=== PATIENT | male | born 1955 | race Caucasian/White ===

== ENCOUNTER 2020-01-15 07:52 | Outpatient (REF) | payer MEDICARE, MEDICAID, SELFPAY ==
--- NOTE | 2020-01-15 | US_ITS ---
EXAMINATION: US ABDOMEN COMPLETE CLINICAL INFORMATION: Abnormal ultrasound of liver. COMPARISON: MR abdomen without and with contrast dated 06/05/2019. Ultrasound abdomen complete dated 05/15/2019 and 12/09/2009. CT abdomen and pelvis with contrast dated 04/22/2016. TECHNIQUE: Real-time imaging of the abdominal viscera. FINDINGS: PANCREAS: Normal. ABDOMINAL AORTA: The proximal, mid, and distal segments are normal in caliber. INFERIOR VENA CAVA: Visualized portions are normal. LIVER: There is a heterogeneous predominantly hypoechoic area seen in the lateral segment of the left lobe of the liver. This is more hypoechoic than is seen on previous ultrasound April 2019. This measures 2.6 x 3.4 x 3.3 cm. It is uncertain whether this corresponds to the previously identified lesion on abdominal ultrasound and MRI from earlier this year. This measured 2.3 x 2.6 x 2.4 cm on previous ultrasound and 2.6 x 2.3 cm on MRI. There are multiple liver cysts. Largest cyst measures 3.4 x 2.4 x 3.2 cm in the right lobe of the liver and is minimally complex with septation. Liver echotexture appears slightly increased. The liver is normal in size and shape. There is no intrahepatic biliary duct dilatation. GALLBLADDER: The gallbladder is contracted. There is gallbladder wall thickening measuring up to 0.5 cm. There are echogenic foci in the gallbladder questionable for polyps or small stones. COMMON BILE DUCT: Normal in caliber measuring 0.5 cm in diameter. RIGHT KIDNEY: There are right renal cysts. Largest cyst measures 2 cm in the midpole. There is a 1.8 x 1.4 x 1.7 cm complex cyst in the midpole with septations. No hydronephrosis or renal calculi. The kidney measures 14.0 cm in maximum dimension. LEFT KIDNEY: There are left renal cysts. Largest cyst measures 2.6 x 2 x 1.6 cm in the midpole. No hydronephrosis or renal calculi. The kidney measures 15.1 cm in maximum dimension. SPLEEN: Normal. The spleen measures 13.4 cm in maximum dimension. FREE FLUID: None. US/US abdomen complete IMPRESSION: Multiple liver and bilateral renal cysts. The previously identified solid liver lesion may not be identified. What is thought to represent this lesion appears more hypoechoic, less well-defined and increased in size compared to April and May 2019 exams. Followup liver MRI should be considered. Slightly contracted gallbladder with thickened gallbladder wall. Question gallbladder wall polyps/adenomyomatosis versus small stones.
== END 2020-01-15 07:53 | disposition home or self-care (01) ==
LOC: HO.US 07:52
PROVIDERS: Visit Provider Internal Medicine Gastroenterology
DX: R94.5 Abnormal results of liver function studies (principal)
CPT/HCPCS: 76700

== ENCOUNTER 2020-01-23 08:32 | Outpatient (REF) | payer MEDICARE, MEDICAID, SELFPAY ==
--- NOTE | 2020-01-23 08:34 | MR_ITS ---
EXAMINATION: MR ABDOMEN WITHOUT AND WITH CONTRAST CLINICAL INFORMATION: Abnormal ultrasound of the liver COMPARISON: Ultrasound 01/15/2020, MRI 06/05/2019 TECHNIQUE: MR abdomen was performed without and with use of 10 mL intravenous Gadavist gadolinium contrast. Postcontrast images are performed in multiphase dynamic sequences. Imaging was performed in 3 planes. FINDINGS: LUNG BASES: The visualized lung bases are unremarkable. LIVER, GALLBLADDER, AND BILIARY TREE: No hepatic steatosis seen. Again seen are numerous well-circumscribed T2 hyperintense, nonenhancing simple hepatic cysts. Some have a diffusely thin septations. These have been present across multiple prior study studies dating back to the CT to 04/10/2016. In addition, again seen is a well-circumscribed 2.6 x 2.9 cm lesion in segment 2 of the liver. This has mild bright T2 signal, series 4 image 16/37, is hypointense on precontrast T1-weighted images, with heterogeneous internal enhancement suggesting a solid lesion. I think the ultrasound abnormality that was being noted on the ultrasound 01/15/2020 is an adjacent multiloculated cyst, not this lesion. The gallbladder is unremarkable with no evidence of gallbladder wall thickening, or obvious pericholecystic inflammatory changes. PANCREAS: Unremarkable. SPLEEN: Normal. ADRENAL GLANDS: There is a 1.5 cm right adrenal nodule with loss of signal on opposed phase gradient echo sequences consistent with a benign lipid rich adrenal adenoma. Normal left adrenal gland. KIDNEYS AND URETERS: There is symmetric bilateral renal enhancement. Again seen are multiple well-circumscribed T2 hyperintense nonenhancing simple renal cysts. In addition, there are a few foci of bright T1 signal precontrast, for example a 5 mm focus in the left mid kidney in image 78/124 and a 6 mm focus in the upper pole the right kidney in image 72/124; these likely represent proteinaceous or hemorrhagic cysts. GASTROINTESTINAL TRACT: Stomach and small bowel are nondilated. No abnormal colonic wall thickening. No ascites. No intra-abdominal fluid collection. ABDOMINAL WALL: No significant hernia is appreciated. LYMPH NODES: No lymphadenopathy. VASCULAR: Normal caliber abdominal aorta. OSSEOUS STRUCTURES: Marrow signal normal. MR/MR abdomen wo/w con IMPRESSION: There is a 2.6 x 2.9 cm lesion in segment 2 of the liver with mild bright T2 signal and heterogeneous internal enhancement. This was seen on the prior MRI 06/05/2019 and measured 2.9 x 2.3 cm that time, not convincingly changed. There was abnormality in the anterior periphery of segment [address] 04/22/2016 although the current finding is significantly increased in size. The lesion remains indeterminate but the stability since 06/05/2019 is reassuring. Recommend continued attention on follow-up.
[2020-01-23 09:16] LABS: Blood Urea Nitrogen 17 mg/dL (9-16); Estimated Glomerular Filt Rate > 60
== END 2020-01-23 08:33 | disposition home or self-care (01) ==
LOC: HO.MRI 08:32
PROVIDERS: PCP Internal Medicine; Visit Provider Internal Medicine Gastroenterology
DX: R93.2 Abnormal findings on diagnostic imaging of liver and biliary tract (principal)
CPT/HCPCS: 74183; 82565; 84520; A9585

== ENCOUNTER → 2020-04-12 08:34 | Outpatient (BNVA) | payer MEDICARE, MEDICAID, SELFPAY | PROVIDERS: PCP Internal Medicine; Visit Provider Internal Medicine Cardiovascular Disease | DX: I47.1 Supraventricular tachycardia (principal); I10 Essential (primary) hypertension; I25.10 Atherosclerotic heart disease of native coronary artery without angina pectoris | CPT/HCPCS: 93005; 99212 ==

== ENCOUNTER → 2020-09-26 10:11 | Outpatient (BNVA) | payer MEDICARE, MEDICAID, SELFPAY | PROVIDERS: PCP Internal Medicine; Referring Provider Internal Medicine; Visit Provider Internal Medicine Cardiovascular Disease | DX: I25.10 Atherosclerotic heart disease of native coronary artery without angina pectoris (principal); I47.1 Supraventricular tachycardia | CPT/HCPCS: 99212 ==

== ENCOUNTER → 2021-01-31 10:19 | Outpatient (REF) | payer MEDICARE, MEDICAID, SELFPAY ==
--- NOTE | 2021-01-31 10:30 | CA_ITS ---
Transthoracic Echocardiogram Patient (Last, First, Middle): Shane Nichole D Gender: Male Date of : 1955 Age: 66 Procedure Date: 01/31/2021 Procedure Type: Transthoracic Echocardiogram Location: OP Height: 185.42 cm Weight: 111.13 kg BSA: 2.35 m2 Heart Rate: bpm BP: 134 / 80 mmHg Boxing Inspector: Referring MD: Kojo Fermin MD Symptoms: MURMUR R01.1 Study Quality: Fair ECG Rhythm: Sinus Conclusions: - The left ventricular systolic function is normal. The visually estimated ejection fraction is between 65-70%. - Evidence suggests grade II (moderate) diastolic dysfunction. - The basal inferior and mid inferior segments are hypokinetic. - The left atrium is moderately dilated. - There is moderate calcification of the aortic valve. There is mild aortic valve stenosis. - There is mild mitral annular calcification. Findings Left Ventricle Normal left ventricular cavity size. The left ventricular systolic function is normal. The visually estimated ejection fraction is between 65-70%. There is evidence of regional wall motion abnormalities. E/E prime ratio is >15, consistent with elevated filling pressures. Evidence suggests grade II (moderate) diastolic dysfunction. There is mild septal and mild basal asymmetric hypertrophy. Wall Motion Rest Echo Findings The basal inferior and mid inferior segments are hypokinetic. Right Ventricle Normal right ventricular cavity size and systolic function. Atria The left atrium is moderately dilated. The right atrium is normal in size. Aortic Valve There is moderate calcification of the aortic valve. There is mild aortic valve stenosis. The peak aortic velocity is 2.60 m/s with a calculated peak gradient of 27 mmHg. The mean gradient is 14 mmHg. The aortic valve area is 1.73 cm2. There is no aortic valve regurgitation. Mitral Valve There is mild mitral annular calcification. There is no mitral valve regurgitation. There is no mitral valve stenosis. Pulmonic Valve The pulmonic valve was not well visualized. Tricuspid Valve Normal tricuspid valve structure. There is trace tricuspid valve regurgitation. The pulmonary artery systolic pressure is normal. Great Vessels There is mild dilatation of the ascending aorta measuring 3.90 cm. Venous The inferior vena cava is dilated and collapses greater than 50% with inspiration. Pericardium/Pleural There is no evidence of pericardial effusion. Prior Study Comparison Changes noted compared to prior study dated: 01/12/2019. Increase in LA size; see comments on aortic valve. Measurements 2D Linear Measurements IVSd: 1.24 0.6-0.9/0.6-1.0 cm LVIDd: 5.19 3.9-5.3/4.2-5.9 cm LVIDd Index: 2.21 2.4-3.2/2.2-3.1 cm/m2 LVIDs: 3.30 2.0-3.6 cm LVPWd: 1.24 0.7-1.1 cm Ao Root: 3.50 2.1-3.5 cm LA Diam: 5.60 2.7-3.8/3.0-4.0 cm LAIDs Index: 2.38 1.5-2.3 cm/m2 LV Mass: 323.88 67-162/88-224 g LV Mass Index: 137.82 43-95/49-115 g/m2 LVOT Diam: 2.20 3.0+(-)1.3 cm 2D Systolic Function EF 4C: 70.00 >55% EF 2C: 72.90 >55% EF BiP: 72.60 >55% Mitral Valve MV VTI: 0.53 MV Pk Omkar: 1.35 MV Mn Omkar: 0.72 MV Pk Grad: 7.00 MV Mn Grad: 3.00 MV Pk E: 1.25 MV PK A: 0.80 MV Decel Time: 266.00 E/A: 1.60 E'Lateral: 8.05 E'Medial: 8.49 E/E' Med: 14.70 E/E' Lat: 15.50 PHT: 78.00 MVA PHT: 2.82 MVA Continuity: 2.02 Decel Hayes: 4.69 Aortic Valve AoV Pk Omkar: 2.60 AoV Mn Omkar: 1.73 AoV VTI: 0.62 AoV Pk Grad: 27.00 Aov Mn Grad: 14.00 YAMEL Cont.VTI: 1.73 LVOT LVOT Pk Omkar: 1.19 LVOT Mn Omkar: 0.80 LVOT VTI: 0.28 LVOT Pk Grad: 6.00 LVOT Mn Grad: 3.00 LVOT Diam: 2.20 LVOT Area: 3.80 Diastolic Function MV Pk E: 1.25 MV Pk A: 0.80 E/A: 1.60 E'Medial: 8.49 E/E' Med: 14.70 E' Laterial: 8.05 E/E' Lat: 15.50 Right Ventricle TAPSE (mm): 41.00 Tricuspid Valve TR Pk Omkar: 1.59 TR Pk Grad: 10.00 RA Press: 8.00 Great Vessels Aorta Ao Root-2D: 3.50 2.0-3.7 cm Ao Asc: 3.90 2.1-3.4 cm Pulmonary Valve PV Pk Omkar: 1.09 Peak PV Grad: 5.00 Updated in Other Vendor System with Status of Final Jonny Chin MD electronically signed on 02/01/2021 2:12:43 PM with status of Final
== END ==
LOC: HO.CARD 10:19
PROVIDERS: Visit Provider Internal Medicine
DX: R01.1 Cardiac murmur, unspecified (principal)
CPT/HCPCS: 93306

== ENCOUNTER 2021-05-15 06:03 | Outpatient (REF) | payer MEDICARE, MEDICAID, SELFPAY ==
[2021-05-15 06:21] LABS: MANUAL DIFF FLAG NO
[2021-05-15 06:57] LABS: Basophils Absolute Auto 0.1 X10*3/uL (0.0-0.2); Basophils Percent Auto 1.1 % (0-2); Eosinophils Absolute Auto 0.2 X10*3/uL (0.0-0.4); Eosinophils Percent Auto 2.9 % (0-4); Hematocrit 38.8 % (42.0-52.0); Hemoglobin 13.3 g/dl (14.0-18.0); Imm Gran Abs Auto 0.03 X10*3/uL (0.00-0.03); Imm Gran Pct Auto 0.5 % (0.0-0.4); Lymphocytes Absolute Auto 1.7 X10*3/uL (1.2-4.9); Mean Corpuscular HGB Conc 34.3 g/dl (31.0-36.0); Mean Corpuscular Hemoglobin 31.5 pg (27.0-33.0); Mean Corpuscular Volume 91.9 fL (80.0-98.0); Mean Platelet Volume 9.5 fL (9.4-12.4); Monocytes Absolute Auto 0.7 X10*3/uL (0.1-1.2); Monocytes Percent Auto 10.8 % (2-11); Neutrophils Absolute Auto 3.5 x10*3/uL (2.0-8.3); Neutrophils Percent Auto 56.7 % (45-73); Platelet Count 220 X10*3/uL (160-400); Red Blood Count 4.22 X10*6/uL (4.60-5.80); Red Cell Distribution Width 14.1 % (11.0-16.0); White Blood Count 6.2 X10*3/uL (4.8-10.8)
[2021-05-15 07:17] LABS: Estimated Average Glucose 108 mg/dL; Hemoglobin A1C 121.5818 umol/L; Hemoglobin A1c % 5.4 %
[2021-05-15 07:28] LABS: Alanine Aminotransferase 23 U/L (0-40); Albumin Level 4.3 g/dL (3.5-5.0); Alkaline Phosphatase 83 U/L (39-117); Anion Gap 14 (12-20); Aspartate Amino Transferase 26 U/L (5-37); Bilirubin Total 0.7 mg/dL (0.0-1.0); Blood Urea Nitrogen 10 mg/dL (9-16); Calcium 9.7 mg/dL (8.4-10.2); Carbon Dioxide 22 mmol/L (22-29); Chloride 102 mmol/L (96-108); Estimated Glomerular Filt Rate > 60; Glucose Random 131 mg/dL (60-115); Potassium 4.2 mmol/L (3.3-5.1); Sodium 134 mmol/L (135-145); Total Protein 7.3 g/dL (6.5-8.0)
[2021-05-15 09:05] LABS: Folate 6.8 ng/mL (> or = 4.0); Vitamin B12 372 pg/mL (200-900)
[2021-05-19 09:21] LABS: Methylmalonic Acid 262 nmol/L (87-318)
== END 2021-05-15 06:04 | disposition home or self-care (01) ==
LOC: HO.LAB 06:03
PROVIDERS: PCP Internal Medicine; Visit Provider Internal Medicine
DX: I25.10 Atherosclerotic heart disease of native coronary artery without angina pectoris (principal); I10 Essential (primary) hypertension; R73.01 Impaired fasting glucose; R35.1 Nocturia; E53.8 Deficiency of other specified B group vitamins
CPT/HCPCS: 36415; 80053; 82607; 82746; 83036; 83921; 85025

== ENCOUNTER → 2021-10-16 12:20 | Outpatient (BNVA) | payer MEDICARE, MEDICAID, SELFPAY | PROVIDERS: PCP Internal Medicine; Referring Provider Internal Medicine; Visit Provider Internal Medicine Cardiovascular Disease | DX: I25.10 Atherosclerotic heart disease of native coronary artery without angina pectoris (principal); I47.1 Supraventricular tachycardia | CPT/HCPCS: 93005; 99212 ==

== ENCOUNTER 2021-10-30 07:10 | Outpatient (REF) | payer MEDICARE, MEDICAID, SELFPAY ==
[2021-10-30 07:35] LABS: MANUAL DIFF FLAG NO
[2021-10-30 07:52] LABS: Basophils Absolute Auto 0.1 X10*3/uL (0.0-0.2); Basophils Percent Auto 1.4 % (0-2); Eosinophils Absolute Auto 0.2 X10*3/uL (0.0-0.4); Eosinophils Percent Auto 2.3 % (0-4); Hemoglobin 13.3 g/dl (14.0-18.0); Imm Gran Abs Auto 0.06 X10*3/uL (0.00-0.03); Imm Gran Pct Auto 0.8 % (0.0-0.4); Lymphocytes Absolute Auto 1.8 X10*3/uL (1.2-4.9); Lymphocytes Percent Auto 23.6 % (20-40); Mean Corpuscular HGB Conc 34.1 g/dl (31.0-36.0); Mean Corpuscular Hemoglobin 31.1 pg (27.0-33.0); Mean Corpuscular Volume 91.3 fL (80.0-98.0); Mean Platelet Volume 8.9 fL (9.4-12.4); Monocytes Absolute Auto 1.1 X10*3/uL (0.1-1.2); Monocytes Percent Auto 14.5 % (2-11); Neutrophils Absolute Auto 4.3 x10*3/uL (2.0-8.3); Neutrophils Percent Auto 57.4 % (45-73); Platelet Count 185 X10*3/uL (160-400); Red Blood Count 4.27 X10*6/uL (4.60-5.80); Red Cell Distribution Width 15.3 % (11.0-16.0); White Blood Count 7.4 X10*3/uL (4.8-10.8)
[2021-10-30 08:09] LABS: Estimated Average Glucose 103 mg/dL; Hemoglobin A1c % 5.2 %
[2021-10-30 08:13] LABS: Alanine Aminotransferase 30 U/L (0-40); Albumin Level 4.4 g/dL (3.5-5.0); Alkaline Phosphatase 99 U/L (39-117); Anion Gap 18 (12-20); Aspartate Amino Transferase 32 U/L (5-37); Bilirubin Total 0.6 mg/dL (0.0-1.0); Blood Urea Nitrogen 25 mg/dL (9-16); Calcium 9.1 mg/dL (8.4-10.2); Carbon Dioxide 19 mmol/L (22-29); Chloride 103 mmol/L (96-108); Cholesterol 170 mg/dL; Estimated Glomerular Filt Rate 42; Glucose Random 133 mg/dL (60-115); HDL Cholesterol 58 mg/dL; LDL Cholesterol Calculated 65 mg/dl; Potassium 4.2 mmol/L (3.3-5.1); Sodium 136 mmol/L (135-145); Total Protein 7.5 g/dL (6.5-8.0); Triglycerides 237 mg/dL
[2021-10-30 08:33] LABS: Thyroid Stimulating Hormone 2.07 uIU/mL (0.32-4.0)
== END 2021-10-30 07:11 | disposition home or self-care (01) ==
LOC: HO.LAB 07:10
PROVIDERS: PCP Internal Medicine; Visit Provider Internal Medicine
DX: I25.10 Atherosclerotic heart disease of native coronary artery without angina pectoris (principal); R73.01 Impaired fasting glucose; E78.2 Mixed hyperlipidemia; R53.81 Other malaise; R53.83 Other fatigue
CPT/HCPCS: 36415; 80053; 80061; 83036; 84443; 85025

== ENCOUNTER 2021-12-10 06:25 | Outpatient (REF) | payer MEDICARE, MEDICAID, SELFPAY ==
[2021-12-10 07:57] LABS: Anion Gap 18 (12-20); Blood Urea Nitrogen 21 mg/dL (9-16); Calcium 9.6 mg/dL (8.4-10.2); Carbon Dioxide 21 mmol/L (22-29); Chloride 105 mmol/L (96-108); Estimated Glomerular Filt Rate 50; Glucose Random 112 mg/dL (60-115); Potassium 4.1 mmol/L (3.3-5.1); Sodium 140 mmol/L (135-145)
[2021-12-10 08:26] LABS: Appearance Urine Clear; Color Urine Yellow; Glucose Urine UA Negative (Negative); Leukocyte Esterase Urine Negative (Negative); Nitrite Urine Negative (Negative); PH 5.5 (5.0-9.0); Specific Gravity - Urine 1.015 (1.005-1.025); UMIC TRIGGER UA YES; Urine Blood Negative (Negative); Urine Ketones Negative (Negative); Urine Protein 30 (1+) mg/dL (Neg-Trace)
[2021-12-10 08:31] LABS: Bacteria Urine None Seen (None Seen); Hyaline Casts Urine 0-2 /LPF (0-2); RBC Urine 0-2 /HPF (0-2); Squamous Epithelial Cell Urine 0-2 /HPF (0-2); WBC Urine 0-5 /HPF (0-5)
== END 2021-12-10 06:26 | disposition home or self-care (01) ==
LOC: HO.LAB 06:25
PROVIDERS: PCP Internal Medicine; Visit Provider Internal Medicine
DX: R73.01 Impaired fasting glucose (principal); I12.9 Hypertensive chronic kidney disease with stage 1 through stage 4 chronic kidney disease, or unspecified chronic kidney disease; N18.32 Chronic kidney disease, stage 3b
CPT/HCPCS: 36415; 80048; 81001; 81003

== ENCOUNTER 2022-04-03 07:22 | Outpatient (REF) | payer MEDICARE, MEDICAID, SELFPAY ==
[2022-04-03 08:36] LABS: Hematocrit 36.4 % (42.0-52.0); Hemoglobin 12.6 g/dl (14.0-18.0); Mean Corpuscular HGB Conc 34.6 g/dl (31.0-36.0); Mean Corpuscular Hemoglobin 33.5 pg (27.0-33.0); Mean Corpuscular Volume 96.8 fL (80.0-98.0); Mean Platelet Volume 9.6 fL (9.4-12.4); Platelet Count 173 X10*3/uL (160-400); Red Blood Count 3.76 X10*6/uL (4.60-5.80); Red Cell Distribution Width 12.9 % (11.0-16.0); White Blood Count 7.8 X10*3/uL (4.8-10.8)
[2022-04-03 08:55] LABS: Alanine Aminotransferase 50 U/L (0-40); Albumin Level 4.2 g/dL (3.5-5.0); Alkaline Phosphatase 106 U/L (39-117); Aspartate Amino Transferase 38 U/L (5-37); Bilirubin Direct 0.2 mg/dL (0.0-0.5); Bilirubin Total 0.6 mg/dL (0.0-1.0); Blood Urea Nitrogen 20 mg/dL (9-16); Estimated Glomerular Filt Rate > 60; Total Protein 7.1 g/dL (6.5-8.0)
[2022-04-06 14:18] LABS: Alpha Fetoprotein 6.8 ng/mL (<6.1)
== END 2022-04-03 07:23 | disposition home or self-care (01) ==
LOC: HO.LAB 07:22
PROVIDERS: PCP Internal Medicine; Visit Provider Internal Medicine Gastroenterology
DX: K74.69 Other cirrhosis of liver (principal)
CPT/HCPCS: 36415; 80076; 82105; 82565; 84520; 85027; 85610

== ENCOUNTER 2022-04-06 07:49 | Outpatient (REF) | payer MEDICARE, MEDICAID, SELFPAY ==
--- NOTE | ~2022-04-06 | MR_ITS ---
EXAMINATION: MR ABDOMEN WITHOUT AND WITH CONTRAST CLINICAL INFORMATION: Follow-up liver lesion COMPARISON: Outside MRI 01/23/2020. MRI abdomen 06/05/2019 TECHNIQUE: MR abdomen was performed without and with use of 10 mL intravenous Gadavist gadolinium contrast. Postcontrast images are performed in multiphase dynamic sequences. Imaging was performed in 3 planes. FINDINGS: LUNG BASES: The visualized lung bases are unremarkable. LIVER, GALLBLADDER, AND BILIARY TREE: The liver is normal in size, smooth in contour, and normal in signal. Numerous well-circumscribed T2 hyperintense simple hepatic cysts are present. In addition, along the anterior margin of the left lobe of liver, segment 3 there is a well-circumscribed 2.7 x 2.0 cm lesion with intermediate bright T2 signal and hypointense T1 signal precontrast. This may be subtly hyperenhancing relative to adjacent liver on arterial phase images and becomes isoenhancing on later sequences. It is not convincingly changed in size from the prior MRI 06/05/2019. The gallbladder is unremarkable with no evidence of gallbladder wall thickening, or obvious pericholecystic inflammatory changes. PANCREAS: There are a few tiny cysts or ectatic sidebranches of the pancreas measuring 2-3 mm, for example coronal series 3 image 19/37 in the body of the pancreas and on image 18/37 and the tail of the pancreas. These do not definitely communicate with the pancreatic duct. SPLEEN: Normal. ADRENAL GLANDS: Normal. KIDNEYS AND URETERS: Numerous well-circumscribed homogeneous hyperintense T2, nonenhancing simple cysts are present. In addition, there are several small homogeneous T1 bright proteinaceous or hemorrhagic cysts, for example in the left kidney on series 8 images 71, 82, and 89. However, there is one heterogeneous cyst measuring 1.8 cm in the lateral cortex of the right mid kidney image 87/120. This has nodular bright T1 signal precontrast, 3 to 4 mm in diameter, with bright T2 signal and no enhancement elsewhere. Given the heterogeneity this would be considered a Bosniak 2F cyst. GASTROINTESTINAL TRACT: No bowel obstruction. No ascites or fluid collection. ABDOMINAL WALL: No significant hernia is appreciated. LYMPH NODES: No lymphadenopathy. VASCULAR: Unremarkable. OSSEOUS STRUCTURES: Degenerative changes. No acute or suspicious focal abnormality.. MR/MR abdomen wo/w con IMPRESSION: In addition to multiple hepatic cysts, the 2.7 cm index lesion along the anterior cortex of the left lobe of the liver is not convincingly changed from prior MRI in 2020. The lack of interval change is reassuring of an underlying benign etiology. The MRI and signal characteristics remain most consistent with focal nodular hyperplasia (there was retained Eovist contrast on 20 minute delayed images of the MRI 06/05/2019 consistent with a lesion of hepatocyte origin). In addition to simple and proteinaceous/hemorrhagic Bosniak 1 and 2 renal cysts, there is a 1.8 cm Bosniak 2F cyst in the right mid kidney. The heterogeneity seen on the current exam was not seen on the prior study in 2020. The large majority of Bosniak IIF masses are benign. When malignant, nearly all are indolent. Generally, Bosniak IIF masses are followed by imaging at 6 months and 12 months, then annually for a total of 5 years to assess for morphologic change.
== END 2022-04-06 07:50 | disposition home or self-care (01) ==
LOC: HO.MRI 07:49
PROVIDERS: PCP Internal Medicine; Visit Provider Internal Medicine Gastroenterology
DX: R93.2 Abnormal findings on diagnostic imaging of liver and biliary tract (principal)
CPT/HCPCS: 74183; A9585

== ENCOUNTER 2022-04-10 08:18 | Outpatient (REF) | payer MEDICARE, MEDICAID, SELFPAY ==
[2022-04-10 08:36] LABS: MANUAL DIFF FLAG NO
[2022-04-10 08:50] LABS: Basophils Absolute Auto 0.1 X10*3/uL (0.0-0.2); Basophils Percent Auto 1.3 % (0-2); Eosinophils Absolute Auto 0.1 X10*3/uL (0.0-0.4); Eosinophils Percent Auto 2.1 % (0-4); Hematocrit 36.8 % (42.0-52.0); Hemoglobin 12.9 g/dl (14.0-18.0); Imm Gran Abs Auto 0.08 X10*3/uL (0.00-0.03); Imm Gran Pct Auto 1.2 % (0.0-0.4); Lymphocytes Percent Auto 29.4 % (20-40); Mean Corpuscular HGB Conc 35.1 g/dl (31.0-36.0); Mean Corpuscular Hemoglobin 33.1 pg (27.0-33.0); Mean Corpuscular Volume 94.4 fL (80.0-98.0); Monocytes Absolute Auto 0.8 X10*3/uL (0.1-1.2); Monocytes Percent Auto 12.3 % (2-11); Neutrophils Absolute Auto 3.6 x10*3/uL (2.0-8.3); Neutrophils Percent Auto 53.7 % (45-73); Platelet Count 202 X10*3/uL (160-400); Red Cell Distribution Width 12.7 % (11.0-16.0); White Blood Count 6.7 X10*3/uL (4.8-10.8)
[2022-04-10 08:58] LABS: Estimated Average Glucose 91 mg/dL; Hemoglobin A1c % 4.8 %
[2022-04-10 09:26] LABS: Appearance Urine Clear; Color Urine Yellow; Glucose Urine UA Negative (Negative); Leukocyte Esterase Urine Negative (Negative); Nitrite Urine Negative (Negative); PH 6.5 (5.0-9.0); UMIC TRIGGER UA YES; Urine Blood Negative (Negative); Urine Ketones Negative (Negative); Urine Protein 30 (1+) mg/dL (Neg-Trace)
[2022-04-10 09:32] LABS: Bacteria Urine None Seen (None Seen); Hyaline Casts Urine 0-2 /LPF (0-2); RBC Urine 0-2 /HPF (0-2); Squamous Epithelial Cell Urine 0-2 /HPF (0-2); WBC Urine 0-5 /HPF (0-5)
[2022-04-10 09:41] LABS: Alanine Aminotransferase 32 U/L (0-40); Albumin Level 4.3 g/dL (3.5-5.0); Alkaline Phosphatase 90 U/L (39-117); Anion Gap 14 (12-20); Aspartate Amino Transferase 35 U/L (5-37); Bilirubin Total 0.5 mg/dL (0.0-1.0); Blood Urea Nitrogen 18 mg/dL (9-16); Calcium 9.4 mg/dL (8.4-10.2); Carbon Dioxide 22 mmol/L (22-29); Chloride 104 mmol/L (96-108); Estimated Glomerular Filt Rate 57; Glucose Random 116 mg/dL (60-115); Potassium 4.3 mmol/L (3.3-5.1); Sodium 136 mmol/L (135-145); Total Protein 7.1 g/dL (6.5-8.0)
[2022-04-10 09:57] LABS: Vitamin D 25-OH Total 6.9 ng/mL (>30)
== END 2022-04-10 08:19 | disposition home or self-care (01) ==
LOC: HO.LAB 08:18
PROVIDERS: PCP Internal Medicine; Visit Provider Internal Medicine
DX: M54.41 Lumbago with sciatica, right side (principal); G89.29 Other chronic pain; R35.0 Frequency of micturition; I10 Essential (primary) hypertension; R35.1 Nocturia; E55.9 Vitamin D deficiency, unspecified
CPT/HCPCS: 36415; 80053; 81001; 82306; 83036; 85025; 87086

== ENCOUNTER 2022-04-15 11:52 | Day surgery (SDC) | payer MEDICARE, MEDICAID, SELFPAY ==
--- NOTE | 2022-04-14 10:16 | HO.ANESPROP2 ---
Documented by User: Viry Soler NP 04/14/22 10:50 HPI - Anesthesia Eval Consult details Narrative: 67yo M for Upper Endoscopy and Colonoscopy Stable at 09/2021 routine cardiology visit s/p RUL-ectomy 05/2021 for benign nodule Tramadol for significant back pain PMFSH Active Problems Active Problems: All Active Problems (Updated 04/12/20 @ 09:05 by Danilo Em MD) CAD (coronary artery disease) (Acute) SVT (supraventricular tachycardia) (Acute) HTN (hypertension) (Acute) Hyperlipidemia (Acute) Past Medical History Medical History (Updated 04/14/22 @ 10:42 by Viry Soler NP) Anemia Asthma CAD (coronary artery disease) COPD (chronic obstructive pulmonary disease) Hepatitis C HTN (hypertension) Hyperlipidemia XAVIER (obstructive sleep apnea) Renal stones SVT (supraventricular tachycardia) Family History Family History Father Cancer Mother CVD (cardiovascular disease) Surgical History Surgical History (Updated 04/14/22 @ 10:48 by Viry Soler NP) History of back surgery Hx of cardiac cath Hx of thyroidectomy S/P lobectomy of lung (~05/2021) Stented coronary artery Social History Social History Advance Directives: No Advance Directives Information Provided: Yes Meds Allergies Allergy/AdvReac Type Severity Reaction Status Date / Time No Known Allergies Allergy Unverified 12/07/19 15:01 [No Known Allergies*] Home Medications Medication Instructions Recorded Confirmed Last Taken Type aspirin 81 mg tablet,delayed 81 mg PO DAILY 04/12/20 10/16/21 Unknown History release (Adult Low Dose Aspirin) famotidine 40 mg tablet 40 mg PO DAILY 04/12/20 10/16/21 Unknown History gabapentin 600 mg tablet 600 mg PO TID 04/12/20 10/16/21 Unknown History lisinopril 40 mg tablet 40 mg PO DAILY 04/12/20 10/16/21 Unknown History metoprolol tartrate 50 mg tablet 50 mg PO BID 04/12/20 10/16/21 Unknown History umeclidinium 62.5 mcg/actuation 1 inh PO DAILY 04/12/20 10/16/21 Unknown History blister powder for inhalation cyclobenzaprine 10 mg tablet 10 mg PO BEDTIME PRN 09/26/20 10/16/21 Unknown History fluticasone fur. 200 mcg-umeclid 1 ea inhalation DAILY 09/26/20 10/16/21 Unknown History 62.5 mcg-vilant 25 mcg inhalat.powder pramipexole 0.25 mg tablet 0.25 mg PO 09/26/20 10/16/21 Unknown History Exam Exam Date and Time: April 14, 2022 1016 Pertinent Lab Results Pertinent Lab Results: Laboratory Tests 04/10/22 04/10/22 08:35 08:35 WBC 6.7 Hgb 12.9 L Hct 36.8 L Plt Count 202 Sodium 136 Potassium 4.3 Chloride 104 Carbon Dioxide 22 BUN 18 H Creatinine 1.26 Narrative Narrative: EKG 09/2021 normal sinus rhythm first-degree AV block with PAC otherwise normal EKG ECHO01/2021 Conclusions: - The left ventricular systolic function is normal.? The visually estimated ejection fraction is between 65-70%. ? - Evidence suggests grade II (moderate) diastolic dysfunction. ? - The basal inferior and mid inferior segments are hypokinetic.? - The left atrium is moderately dilated. ? - There is moderate calcification of the aortic valve.? There is mild aortic valve stenosis.? - There is mild mitral annular calcification.? ? Assessment and Plan Assessment Anesthesia Assessment: Chart Reviewed Documented by User: Leonides Petersen MD 04/15/22 12:29 [facility] Past Medical History Medical History (Updated 04/14/22 @ 10:42 by Viry Soler NP) Anemia Asthma CAD (coronary artery disease) COPD (chronic obstructive pulmonary disease) Hepatitis C HTN (hypertension) Hyperlipidemia XAVIER (obstructive sleep apnea) Renal stones SVT (supraventricular tachycardia) Family History Family History Father Cancer Mother CVD (cardiovascular disease) Family history of problems with anesthesia: No Surgical History Surgical History (Updated 04/14/22 @ 10:48 by Viry Soler NP) History of back surgery Hx of cardiac cath Hx of thyroidectomy S/P lobectomy of lung (~05/2021) Stented coronary artery History of Problems with Anesthesia: No Social History Social History Advance Directives: No Advance Directives Information Provided: Yes Meds Allergies Allergy/AdvReac Type Severity Reaction Status Date / Time No Known Allergies Allergy Unverified 12/07/19 15:01 [No Known Allergies*] Home Medications Medication Instructions Recorded Confirmed Last Taken Type aspirin 81 mg tablet,delayed 81 mg PO DAILY 04/12/20 10/16/21 Unknown History release (Adult Low Dose Aspirin) famotidine 40 mg tablet 40 mg PO DAILY 04/12/20 10/16/21 Unknown History gabapentin 600 mg tablet 600 mg PO TID 04/12/20 10/16/21 Unknown History lisinopril 40 mg tablet 40 mg PO DAILY 04/12/20 10/16/21 Unknown History metoprolol tartrate 50 mg tablet 50 mg PO BID 04/12/20 10/16/21 Unknown History umeclidinium 62.5 mcg/actuation 1 inh PO DAILY 04/12/20 10/16/21 Unknown History blister powder for inhalation cyclobenzaprine 10 mg tablet 10 mg PO BEDTIME PRN 09/26/20 10/16/21 Unknown History fluticasone fur. 200 mcg-umeclid 1 ea inhalation DAILY 09/26/20 10/16/21 Unknown History 62.5 mcg-vilant 25 mcg inhalat.powder pramipexole 0.25 mg tablet 0.25 mg PO 09/26/20 10/16/21 Unknown History Exam Airway Mallampati Class: II TM Dist: >3cm Denture: Lower Loose/Missing/Broken Teeth: No Heart: rrr Lungs: cta Assessment and Plan Final Anesthetic Review Family History of Problems with Anesthesia: No History of Problems with Anesthesia: No NPO: Yes ASA Class: III Final Preanesthetic Review: No Changes in Pt Med Stat, Meds/Allgs Chart Reviewed, Consent Obtained/Reviewed and Anes Risks/Benef Reviewed Patient Risk: Intermediate Procedure Risk: Intermediate Anesthetic Plan Anesthetic Plan: MAC: Disposition: Standard PACU
[2022-04-15 12:27] VITALS: BMI 30.9
--- NOTE | 2022-04-15 13:26 | MHC.SHP ---
Pre-Procedural Eval Section A Date of Service: 04/15/22 The patient is an INPATIENT: No Changes since office visit: No Cold of Flu in the past 2 weeks, No New Medical Problems, No Changes in Medication and No Patient answered all questions The History & Physical has been completed within 30 days and I have reviewed it.: Yes Section B Chief Complaint: Other cirrhosis of liver,screening Allergies: Allergies Allergy/AdvReac Type Severity Reaction Status Date / Time No Known Allergies Allergy Unverified 12/07/19 15:01 [No Known Allergies*] Plan I have reviewed the history and physical and performed a pertinent physical examination on my patient. No changes have occurred unless specified. Time Spent With Patient Time: Total time managing care of this patient today ____ minutes.
--- NOTE | 2022-04-15 14:39 | P.BOP_ITS ---
Brief Operative Note Date of Service: 04/15/22 Pre-op diagnosis: cirrhosis screening Post-op diagnosis: same Surgeon: Power Barrera Anesthesia: MAC Was an Special Event Assistant used for this Procedure?: No Estimated blood loss (mL): 5 Pathology: other Condition: stable Disposition: PACU
[2022-04-15 14:47] VITALS: BP 123/70; PULSE 64; RESP 18; TEMP 36.8; O2SAT 96
[2022-04-15 15:12] VITALS: BP 135/83; PULSE 60; RESP 16; TEMP 36.8; O2SAT 96
--- NOTE | 2022-04-16 02:22 | OP_ITS ---
SURGEON: Power Barrera MD INDICATIONS: 1. Cirrhosis. 2. Colon cancer screening and prior history of adenomatous colon polyps. PREOPERATIVE DIAGNOSIS: POSTOPERATIVE DIAGNOSIS: PROCEDURE PERFORMED: Upper endoscopy with biopsy, colonoscopy to the terminal ileum with biopsy and snare polypectomy. ESTIMATED BLOOD LOSS: COMPLICATIONS: ANESTHESIA: Medications: Monitored anesthesia care. ASSISTANTS: SPECIMENS: DESCRIPTION OF PROCEDURE: The procedure was performed on 04/15/2022. A history and physical was performed. The risks and benefits of the procedure were explained to the patient. Informed consent was obtained. The patient was placed in the left lateral decubitus position. The Olympus video gastroscope was introduced into the esophagus, stomach, and duodenum. Examination was performed and the scope was removed. He was repositioned for colonoscopy. A digital rectal exam was performed and it was found to be normal. The Olympus pediatric video colonoscope was introduced into the rectum and advanced to the cecum without difficulty. The cecum was identified by translumination, palpation, and identification of the ileocecal valve. Examination was performed. The scope was removed. He tolerated both procedures well, and returned to the recovery area in stable condition. FINDINGS: UPPER ENDOSCOPY: Esophagus: The esophagus was normal. No varices were seen. There was 1 cm area suspicious for Cedeno's esophagus. Biopsies were obtained from the EG junction and at 34 cm were two small tongues of salmon-colored tissue extended up from the EG junction. There were no raised lesions or ulcerated areas. Stomach: The stomach showed antral erythema, consistent with gastritis. Biopsies were obtained from the antrum. No portal hypertensive gastropathy was identified. No gastric varices were identified. Duodenum: The bulb and second portion were normal. COLONOSCOPY: The terminal ileum was normal. The visualized colonic mucosa was normal without any evidence of colitis. Multiple colonic polyps were identified and removed using snare and cautery, all were less than 10 mm. These were located at 80 cm, 75 cm, 60 cm x4, 50 cm x3, two were removed and one was cauterized 40 cm and one polyp at 35 cm, which was snared. It measured approximately 8 mm, but it could not be recovered due to technical reasons. There was mild sigmoid diverticulosis. There was some liquid stool in the sigmoid, which limited sensitivity examination and recovery of the polyp at 35 cm. This was washed and suctioned. Retroflexed examination showed some internal hemorrhoids. IMPRESSION: 1. Cirrhosis. 2. Rule out Cedeno's esophagus. 3. Colon polyps. 4. Diverticulosis. RECOMMENDATIONS: Follow up with the biopsy results. MD YOUNG Prasad/SHANTELL / [id number] Addendum: 04/16/22 There was some tissue recovered in the suction trap for the polyp at 35 cm and this was sent for pathological examination. BLANCA
== END 2022-04-15 15:40 | disposition home or self-care (01) ==
PROVIDERS: PCP Internal Medicine; Visit Provider Internal Medicine Gastroenterology
PROC: (CPT 45385; principal; 2022-04-15 13:40)
DX: Z12.11 Encounter for screening for malignant neoplasm of colon (principal); Z86.010 Personal history of colon polyps; K74.69 Other cirrhosis of liver; D12.4 Benign neoplasm of descending colon; D12.5 Benign neoplasm of sigmoid colon; K57.30 Diverticulosis of large intestine without perforation or abscess without bleeding; K64.8 Other hemorrhoids; B19.20 Unspecified viral hepatitis C without hepatic coma; I10 Essential (primary) hypertension; D64.9 Anemia, unspecified; E78.00 Pure hypercholesterolemia, unspecified; I25.10 Atherosclerotic heart disease of native coronary artery without angina pectoris; Z98.61 Coronary angioplasty status; J44.9 Chronic obstructive pulmonary disease, unspecified; G47.33 Obstructive sleep apnea (adult) (pediatric); Z79.899 Other long term (current) drug therapy; Z99.89 Dependence on other enabling machines and devices; Z87.442 Personal history of urinary calculi; Z87.891 Personal history of nicotine dependence
CPT/HCPCS: 45385; 45380; 43239; 88305; 88341; 88342; J2250; J2370; J3010

== ENCOUNTER 2022-10-22 12:19 | Outpatient (AMB) | payer MEDICARE, MEDICAID, SELFPAY ==
[2022-10-22 12:33] VITALS: BP 124/78; PULSE 65; BMI 31.1
--- NOTE | 2022-10-22 12:33 | A.OFFVIS_ITS ---
Intake Vital Signs 10/22/22 12:33 Height 6 ft 1 in Weight 235 lb 14.314 oz BMI 31.1 BP 124/78 Blood Pressure Location Lt brachial Position Sitting Pulse 65 Intake Visit Reasons: 1 year follow up Intake Note: 1 year follow-up with ekg Vibrator Operator Required: No Allergies No Known Allergies [No Known Allergies*] Allergy (Unverified 12/07/19 15:01) Medication List - Last Reconciled 10/22/22 by Danilo Em MD amlodipine 10 mg PO DAILY atorvastatin 40 mg PO BEDTIME cyclobenzaprine 10 mg PO BEDTIME PRN ezetimibe (Zetia) 10 mg PO DAILY famotidine 40 mg PO DAILY ksebgylmdim-hdujdytsq-jkztacqq 200-62.5-25 mcg 1 ea inhalation DAILY gabapentin 600 mg PO TID lisinopril 40 mg PO DAILY metoprolol tartrate 50 mg PO BID omega-3 acid ethyl esters 2 caps PO BID pramipexole 0.25 mg PO ranolazine ER (Ranexa) 500 mg PO BID 90 days umeclidinium 62.5 mcg/actuation 1 inh PO DAILY HPI HPI Comments History of Present Illness Details Shane comes for follow-up. Patient has had no worsening cardiac symptoms. Denies any prolonged palpitations. No exertional chest pain. Cont inues to exertional shortness of breath. Taking all his medications. No recent lipid panel. Denies any heart failure symptoms. Denies any lightheadedness, syncope. Complains of bruising. [facility] Medical History Anemia Asthma CAD (coronary artery disease) COPD (chronic obstructive pulmonary disease) Hepatitis C HTN (hypertension) Hyperlipidemia XAVIER (obstructive sleep apnea) Renal stones SVT (supraventricular tachycardia) Surgical History History of back surgery Hx of cardiac cath Hx of thyroidectomy S/P lobectomy of lung (~05/2021) Stented coronary artery Family History Father Cancer Mother CVD (cardiovascular disease) Review of Systems Const Denies chills, Denies fatigue, Denies fever(s), Denies frequent falls, Denies weakness, Denies weight gain and Denies weight loss ENT Denies dizziness Card Denies chest pain, Denies leg edema, Denies lightheadedness, Denies palpitations, Denies dyspnea, Denies dyspnea on exertion, Denies orthopnea and Denies other (loss of consciousness) Resp Denies cough, Denies dyspnea and Denies dyspnea on exertion GI Denies hematochezia and Denies change in stool character Musc Denies abnormal gait, Denies muscle weakness, Denies numbness, Denies radiating pain into limb and Denies tingling Neuro Denies abnormal gait, Denies dizziness, Denies frequent falls, Denies numbness, Denies tingling and Denies weakness Endo Denies fatigue and Denies palpitations Physical Exam Vital Signs: Last Vital Signs Pulse 65 10/22/22 12:33 BP 124/78 10/22/22 12:33 BMI result Body Mass Index 31.1 Const General: cooperative, comfortable, no acute distress, alert and awake Nutritional Appearance: overweight Orientation/consciousness: patient oriented x3 Limitations: no limitations Neck Neck: Yes trachea midline, Yes supple and Yes no JVD Carotids: no bruits Resp Effort & Inspection: normal respiratory effort Auscultation: clear to auscultation bilaterally and diminished lung sounds Cardio Jugular venous distension: no JVD Palpation: normal PMI Rate: regular rate Rhythm: regular rhythm Heart sounds: S1 normal heart sound present, S2 normal heart sound present, no click, no gallops and no murmurs GI Auscultation: normal bowel sounds Skin General skin exam: no rashes or lesions noted Neuro General: patient oriented x3 and no focal motor deficits Extrem General: Yes no clubbing, cyanosis or edema Psych Appearance: grossly normal Office Procedures EKG Details: EKG shows normal sinus rhythm with Q-waves, small in inferior leads with poor R- wave progression [id number], Complete Assessment & Plan Assessment & Plan (1) CAD (coronary artery disease): Code(s): I25.10 - Atherosclerotic heart disease of [place] coronary artery without angina pectoris Plan: CAD with prior inferior STEMI, currently stable with no exertional symptoms. Continue aggressive medical therapy. Importance of low-dose aspirin therapy was discussed. Continue aggressive blood pressure control, currently well optimized. Continue high-intensity statin therapy with ezetimibe target goal LDL closer to 60 mg/dL. Advised to call me with any worsening symptoms. (2) SVT (supraventricular tachycardia): Code(s): I47.1 - Supraventricular tachycardia Plan: Supraventricular tachycardia which has remained suppressed on metoprolol therapy. Continue the same. Importance of continued therapy was discussed. Stress mitigation strategies to be pursued. Avoidance of stimulants was discussed. Vagal maneuvers were discussed advised to call me with worsening symptoms. Follow up in the clinic in 1 year's time, sooner p.r.n.. Thank you for allowing me to partake in his care Coding Level of Care Code Est Pt Level 4 (66351) Diagnoses CAD (coronary artery disease) I25.10 SVT (supraventricular tachycardia) I47.1 CPT Codes EKG - CPT: 97762-[id number], Complete ([id number])
== END 2022-10-22 12:51 | disposition home or self-care (01) ==
PROVIDERS: PCP Internal Medicine; Referring Provider Internal Medicine; Visit Provider Internal Medicine Cardiovascular Disease
DX: I25.10 Atherosclerotic heart disease of native coronary artery without angina pectoris (principal); I47.1 Supraventricular tachycardia
CPT/HCPCS: 93010; 99214

== ENCOUNTER → 2022-10-22 12:19 | Outpatient (BNVA) | payer MEDICARE, MEDICAID, SELFPAY | PROVIDERS: PCP Internal Medicine; Referring Provider Internal Medicine; Visit Provider Internal Medicine Cardiovascular Disease | DX: I25.10 Atherosclerotic heart disease of native coronary artery without angina pectoris (principal); I47.1 Supraventricular tachycardia | CPT/HCPCS: 93005; 99212 ==

== ENCOUNTER 2022-10-23 06:03 | Outpatient (REF) | payer MEDICARE, MEDICAID, SELFPAY ==
[2022-10-23 06:24] LABS: MANUAL DIFF FLAG NO
[2022-10-23 07:16] LABS: INTERNATIONAL NORM RATIO 0.9 (0.9-1.1); Prothrombin Time 11.4 SEC (11.1-13.3)
[2022-10-23 07:21] LABS: Basophils Absolute Auto 0.1 X10*3/uL (0.0-0.2); Basophils Percent Auto 0.9 % (0-2); Eosinophils Absolute Auto 0.1 X10*3/uL (0.0-0.4); Eosinophils Percent Auto 1.4 % (0-4); Hematocrit 36.9 % (42.0-52.0); Hemoglobin 12.7 g/dl (14.0-18.0); Imm Gran Abs Auto 0.11 X10*3/uL (0.00-0.03); Imm Gran Pct Auto 1.2 % (0.0-0.4); Lymphocytes Absolute Auto 1.8 X10*3/uL (1.2-4.9); Lymphocytes Percent Auto 19.8 % (20-40); Mean Corpuscular HGB Conc 34.4 g/dl (31.0-36.0); Mean Corpuscular Hemoglobin 33.5 pg (27.0-33.0); Mean Corpuscular Volume 97.4 fL (80.0-98.0); Mean Platelet Volume 9.6 fL (9.4-12.4); Monocytes Absolute Auto 1.1 X10*3/uL (0.1-1.2); Neutrophils Absolute Auto 5.7 x10*3/uL (2.0-8.3); Neutrophils Percent Auto 64.7 % (45-73); Platelet Count 171 X10*3/uL (160-400); Red Blood Count 3.79 X10*6/uL (4.60-5.80); Red Cell Distribution Width 13.4 % (11.0-16.0); White Blood Count 8.9 X10*3/uL (4.8-10.8)
[2022-10-23 07:39] LABS: Alanine Aminotransferase 42 U/L (0-40); Albumin Level 4.2 g/dL (3.5-5.0); Alkaline Phosphatase 94 U/L (39-117); Aspartate Amino Transferase 35 U/L (5-37); Bilirubin Direct 0.2 mg/dL (0.0-0.5); Bilirubin Total 0.7 mg/dL (0.0-1.0); Total Protein 7.3 g/dL (6.5-8.0)
== END 2022-10-23 06:04 | disposition home or self-care (01) ==
LOC: HO.LAB 06:03
PROVIDERS: PCP Internal Medicine; Visit Provider Internal Medicine Gastroenterology
DX: K22.719 Barrett's esophagus with dysplasia, unspecified (principal); K74.60 Unspecified cirrhosis of liver
CPT/HCPCS: 36415; 80076; 85025; 85610

== ENCOUNTER 2022-10-26 09:58 | Outpatient (AMB) | payer MEDICARE, MEDICAID, SELFPAY ==
--- NOTE | 2022-10-26 09:59 | MHC.OFFVIS ---
Intake Vital Signs 10/26/22 10:07 Height 6 ft 1 in Weight 234 lb 6 oz BMI 30.9 BP 108/68 Blood Pressure Location Lt brachial Position Sitting Pulse 101 H Pulse Source Pulse Oximeter Pulse Oximetry (%) 97 Oxygen Delivery Method Room Air Intake Visit Reasons: LOW BACK PAIN WITHOUT SCIATICA Intake Note: Pain today 09/28 Type Inspector Required: No Accompanied by: Self / Same As Patient Allergies No Known Allergies [No Known Allergies*] Allergy (Verified 10/26/22 10:04) HPI LOW BACK PAIN WITHOUT SCIATICA HPI Details Patient is a 67 years old male with history of chronic low back pain, gout, COPD, asthma, HTN, CAD, alcohol dependence and back surgeries x3 presents today to discuss interventional treatments for longer term pain management of his lower back pain and post laminectomy syndrome. Denies any recent trauma, injury or falls. Patient is currently following with [facility], has received Caudal ALBERTINA with catheter 6 weeks ago and has upcoming injection on 10/28/22 which he is not sure if he will proceed with. He reports no pain relief with Caudal ALBERTINA for back pain or radicular bilateral anterior leg pain, numbness, and tingling. Reports his symptoms are worse on the right side and at times will cause him to trip during walking. Reports last lumbar spine imaging, xrays and MRI in 2021. Pain interferes with his daily activities, functioning, mood, sleep and significantly affects his quality of life. Pain is rated 8-9/10 at its worst intensity during the day and least severe during night at 4-6/10 pain intensity. Denies any fever, weight loss, abdominal or groin pain, bladder or bowel incontinence or saddle anesthesia. Patient consumes mixed Vodka 3-6 drinks per day, one cup of coffee a day, and smokes pot 2-3 hits at night. Denies previous history of alcohol rehabilitation. Patient reports he is working on decreasing his alcohol consumption. Reports Percocet 10 mg TID prn and Ibuprofen 800 mg BID prn has been most helpful in the past. Currently, he is prescribed gabapentin 600 mg TID and tramadol 50 mg Q6H prn with minimal pain relief. I have informed patient that our office does not offer opioid prescribing at this time. Location Lower back, radiates down bilateral legs Duration Chronic pain for past 2 years. Back surgeries x3 (2 years b/w surgeries) Characteristics of symptom or complaint Pins and needles, burning, stabbing, tingling, aching, cramping, hurting Aggravating or associated factors Movements, bending, walking, cold weather changes Relieving factors Heat therapy, Tylenol, Vodka mixed drinks 3-6/daily Treatment Back injections at [facility], [facility] Medical History Alcohol dependence Anemia Asthma CAD (coronary artery disease) COPD (chronic obstructive pulmonary disease) Hepatitis C HTN (hypertension) Hyperlipidemia XAVIER (obstructive sleep apnea) Post laminectomy syndrome Renal stones SVT (supraventricular tachycardia) Surgical History History of back surgery Hx of cardiac cath Hx of thyroidectomy S/P lobectomy of lung (~05/2021) Stented coronary artery Family History Father Cancer Mother CVD (cardiovascular disease) Social History Alcohol intake: current Alcohol intake frequency: 3 or more drinks per day Alcohol type: hard liquor Patient Tobacco Use Status: Current everyday Tobacco user Tobacco use type: Cigarette Cigarette Packs Per Day: 1 Substance Use Type: Marijuana Advance Directives: No Advance Directives Information Provided: No Review of Systems Const All systems reviewed & are unremarkable except as noted in HPI and below Physical Exam Vital Signs: Last Vital Signs Pulse 101 H 10/26/22 10:07 BP 108/68 10/26/22 10:07 Pulse Ox 97 10/26/22 10:07 Oxygen Delivery Method Room Air 10/26/22 10:07 BMI result Body Mass Index 30.9 General: Appears afebrile. Alert and oriented. Mood and affect appropriate. Follows and participates in conversation appropriately. Respiratory effort is unlabored. Able to transition from sit to stand unassisted. Back/Spine/Pelvis Other: Patient is able to walk and stand on heels and tip toes with moderate difficulty on the right while standing on heel. Antalgic gait, no limping. Can flex forward to 60-70 degrees and extend to 5-10 degrees before experiencing lumbar pain. Demonstrates 5/5 left and 4/5 right strength of quadriceps bilaterally as well as flexion/dorsiflexion of bilateral feet against resistance. 2+ pedal pulses bilaterally. Seated straight leg rise with dorsiflexion negative bilaterally. Diminished patellar and achilles reflexes bilaterally. Facet loading test positive bilaterally. Adolfo sign +bilat, Kojo?s and Stinchfield tests are positive bilaterally. No groin pain with I/E hip rotations. Valsalva maneuver negative. Back: back tenderness Cervical Spine: cervical ROM normal and No Cervical spine tenderness Thoracic/Lumbar Spine: thoracic and lumbar spine normal to inspection, Thoracic/lumbar spine scar(s) (x3), Lasegue's sign positive (diffuse on left, localized on right), pain with thoraco-lumbar ROM, paraspinal muscle tenderness on the right greater than left, thoraco-lumbar ROM limited, thoraco-lumbar spasm, No thoracic spinal tenderness and lumbar spinal tenderness Pelvis: buttock tenderness bilaterally Sacroiliac joints: bilaterally tender to palpation Skin Other: Multiple bruising upper and lower extremities. Reports taking ASA daily. General skin exam: no rashes or lesions noted Results Reviewed Results Reviewed: No imaging reports are available for review today. Assessment & Plan Assessment & Plan (1) Lumbar spondylosis: Code(s): M47.816 - Spondylosis without myelopathy or radiculopathy, lumbar region (2) Lumbar radiculopathy: Code(s): M54.16 - Radiculopathy, lumbar region (3) Post laminectomy syndrome: Code(s): M96.1 - Postlaminectomy syndrome, not elsewhere classified (4) Alcohol dependence: Code(s): F10.20 - Alcohol dependence, uncomplicated Plan 1. We will send medical records release to [facility] for past and current interventional treatments and imaging of chronic low back pain with radicular symptoms. 2. Patient is currently on Tramadol 50 mg Q6H and Gabapentin 600 mg TID prescribed by his PCP. I have informed patient that our office does not offer opioid prescribing at this time. 3. Patient is interested in neuromodulation with SCS trial for post laminectomy syndrome with radicular leg pain. Concerns is for current alcohol consumption. Patient reports he is working on decreasing his daily drinks and is aware of need to pass Behavioral Evaluation prior to SCS trial. He is not interested in Alcohol Detox rehab at this time and is motivated to decrease alcohol intake. We will follow up to review [facility] records. Informational Pamphlets were provided today for SCS trial. Expectations, risks and benefits of SCS trial and implant were reviewed with patient today. All questions and concerns have been answered and patient agreed with the plan. Follow up as needed. Coding Level of Care Code New Pt Level 4 (24265) Diagnoses Lumbar spondylosis M47.816 Lumbar radiculopathy M54.16 Post laminectomy syndrome M96.1 Alcohol dependence F10.20
[2022-10-26 10:07] VITALS: BP 108/68; PULSE 101; O2SAT 97; BMI 30.9
== END 2022-10-26 10:29 | disposition home or self-care (01) ==
PROVIDERS: PCP Internal Medicine; Visit Provider Nurse Practitioner Family
DX: M47.816 Spondylosis without myelopathy or radiculopathy, lumbar region (principal); M54.16 Radiculopathy, lumbar region; M96.1 Postlaminectomy syndrome, not elsewhere classified; F10.20 Alcohol dependence, uncomplicated
CPT/HCPCS: 99204

== ENCOUNTER 2022-10-26 10:33 | Emergency (ER) | payer MEDICARE, MEDICAID, SELFPAY ==
--- NOTE | ~2022-10-26 | XR_ITS ---
EXAMINATION: XR WRIST, RIGHT XR HAND, RIGHT CLINICAL INFORMATION: Pain and swelling. COMPARISON: None available. TECHNIQUE: PA, lateral, and oblique views of the right wrist and PA, lateral, and oblique views of the right hand FINDINGS: Mild interphalangeal, first and third metacarpophalangeal, first carpometacarpal and triscaphe degenerative joint changes are seen. There is no acute fracture or dislocation. The carpal bones are normally aligned. The distal radius and ulna are intact. There is mild soft tissue swelling. XR/XR hand wrist RT IMPRESSION: Mild soft tissue swelling and degenerative joint changes most consistent with osteoarthritis. No acute fracture.
[2022-10-26 10:43] VITALS: BP 123/69; PULSE 68; RESP 16; TEMP 36.4; O2SAT 96; BMI 31.9
--- OUTSIDE RECORDS SUMMARY | 2022-10-26 10:54 | XMS_ITS ---
Author Name Power Barrera Jr Address [address] [place] [address] Organization [facility] Address [address] [place] [address] Care Team Providers Care Rn Plastic Surgery Name Role Phone Bruce Nava Power Unavailable [phone] PROBLEMS Type Condition ICD9-CM Code NPG76-TD Code Onset Dates Condition Status SNOMED Code Problem Chronic hepatitis C without hepatic coma B18.2 Active 116303326 Problem Elevated liver function tests R94.5 Active 635473072 Problem Liver mass R16.0 Active 127797133 Problem Other cirrhosis of liver K74.69 Active 33468589 Problem Rectal bleeding K62.5 Active 69530490 Problem 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 Active 534539560 Problem Left lower quadrant pain R10.32 Active 009755733 Problem Focal nodular hyperplasia of liver K76.89 Active 478707360 Problem Abnormal ultrasound of liver R93.2 Active 560118955 Problem Colon cancer screening Z12.11 Active 019806406 Problem Abnormal MRI, liver R93.2 Active ALLERGIES No Known Allergies ENCOUNTERS Encounter Location Date Diagnosis [facility] [address] [place] [phone] May, [facility] [address] [place] [address] Apr, 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 [facility] Outpatient [address] [place] [id number] 25 Miky, 2023 Encounter for screening colonoscopy Z12.11 ; Colon polyps K63.5 and Other cirrhosis of liver K74.69 [facility] [address] [place] [address] 17 Mar, 2022 [facility] [address] [place] [address] 09 Mar, 2022 Abnormal MRI, liver R93.2 ; Other cirrhosis of liver K74.69 and Colon cancer screening Z12.11 [facility] [address] [place] [address] 06 Jan, 2020 Liver mass R16.0 [facility] [address] [place] [address] Dec, Abnormal ultrasound of liver R93.2 [facility] [address] [place] [address] Sep, Chronic hepatitis C without hepatic coma B18.2 and Abnormal ultrasound of liver R93.2 [facility] [address] [place] [address] July, [facility] [address] [place] [address] [place] [address] May, Abnormal ultrasound of liver R93.2 [facility] [address] [place] [address] May, Abnormal ultrasound of liver R93.2 ; Liver mass R16.0 and Focal nodular hyperplasia of liver K76.89 [facility] [address] [place] [address] 14 Apr, 2019 [facility] [address] [place] [address] Apr, Elevated liver function tests R94.5 [facility] [address] [place] [address] Mar, Chronic hepatitis C without hepatic coma B18.2 [facility] [address] [place] [address] Mar, Chronic hepatitis C without hepatic coma B18.2 [facility] [address] [place] [id number] Feb, [facility] [address] [place] [address] [place] [address] Oct, [facility] Outpatient [address] [facility] [place] [id number] Oct, [facility] [address] [place] [address] Sep, [facility] [address] [place] [address] Aug, [facility] [address] [place] [address] Aug, Rectal bleeding K62.5 [facility] [address] [place] [address] May, [facility] [address] [place] [address] May, [facility] [address] [place] [address] May, Left lower quadrant pain R10.32 [facility] [address] [place] [address] Apr, [facility] [address] [facility] [place] [phone] Jan, [facility] [address] [place] [address] July, Blood in stool 578.1 [facility] Outpatient [address] [place] [id number] Aug, [facility] ER [address] [place] [phone] Aug, IMMUNIZATIONS Vaccine Route Administration Date Status Influenza Unknown Jan 06, 2022 Administered Influenza Unknown Dec 21, 2018 Administered Influenza Unknown Dec 27, 2018 Administered SOCIAL HISTORY Qualifiers Date Former Smoker 2006 REASON FOR REFERRAL FUNCTIONAL STATUS PLAN OF CARE Activity Details VITAL SIGNS Weight 234 lbs 2022-03-30 Weight 255 lbs 2019-09-20 Weight 254 lbs 2019-03-29 Weight 249 lbs 2018-09-14 Weight 237 lbs 2016-05-21 Weight 238 lbs 2014-08-15 Height 73.5 in 2022-03-30 Height 73.5 in 2019-09-20 Height 73.5 in 2019-03-29 Height 73.5 in 2018-09-14 Height 73.5 in 2016-05-21 Height 73.5 in 2014-08-15 BMI 30.45 kg/m2 2022-03-30 BMI 33.18 kg/m2 2019-09-20 BMI 33.05 kg/m2 2019-03-29 BMI 32.40 kg/m2 2018-09-14 BMI 30.84 kg/m2 2016-05-21 BMI 30.97 kg/m2 2014-08-15 Heart Rate 72 /min 2019-03-29 Heart Rate 72 /min 2016-05-21 Temperature 97.8 degrees Fahrenheit Blood pressure systolic 000 mm Hg Blood pressure diastolic 00 mm Hg 2022-03 MEDICATIONS Medication Instructions Dosage Frequency Start Date End Date Duration Status Incruse Ellipta 62.5 MCG/INH Inhalation Once a day 1 puff 24h Active Famotidine 40 MG Oral Twice a day 1 tablet 12h 90 days Active Putnam 3 1000 MG Orally Once a day 1 capsule 24h 30 day(s) Active Gabapentin 600 MG Orally tid as directed 8h Active Vitamin B12 500 Orally Once a day as directed 24h Active Aspirin 81 MG Orally Once a day 1 tablet 24h Active Lisinopril 40 MG Oral Once a day 1 tablet 24h Active Atorvastatin Calcium 40 MG Orally Once a day 1 tablet 24h 30 day(s) Active Pramipexole Dihydrochloride 0.125 MG Orally Once a day 2 tablet 24h Active Metoprolol Tartrate 50 MG Oral Twice a day 1 tablet with food 12h Active amLODIPine Besylate 10 MG Orally Once a day 1 tablet 24h Active Ranolazine ER 500 MG Orally Twice a day 1 tablet 12h 30 day(s) Active PROCEDURES Procedure Date Ordered Result Body Site DOC MEDS VERIFIED W/PT OR RE September 14, 2018 COLORECTAL CA SCREEN DOC REV September 14, 2018 COLORECTAL CA SCREEN DOC REV Mar 30, 2022 LESION REMOVAL COLONOSCOPY Apr 15, 2022 TV 11-20 Minutes September 20, 2019 TOBACCO NON-USER September 14, 2018 Pt scrn tbco id as non user Mar 30, 2022 COLOREC CANCR SCR; COLNSCPY HI RISK Apr 15, 2022 DOC MEDS VERIFIED W/PT OR RE Mar 30, 2022 COLONOSCOPY AND BIOPSY Apr 15, 2022 INTRVL 3+YRS PTS CLNSCP DOCD Apr 15, 2022 PATIENT NOT ELIG D/T ACTIVE DX HTN Mar 30, 2022 BP SCR PRFRM RCMDD DEFIND SCR INTVL September 14, 2018 UPPER GI ENDOSCOPY, BIOPSY Apr 15, 2022 RESULTS Name Result Date Reference Range Pathology 2022-04-15 MR abdomen wo/w con 2022-04-06 Complete Blood Count no Diff 2022-04-03 White Blood Count 7.8 4.8-10.8 Red Blood Count 3.76 4.60-5.80 Hemoglobin 12.6 14.0-18.0 Hematocrit 36.4 42.0-52.0 Mean Corpuscular Volume 96.8 80.0 -98.0 Mean Corpuscular Hemoglobin 33.5 27.0-33.0 Mean Corpuscular HGB Conc 34.6 31 .0-36.0 Red Cell Distribution Width 12.9 11.0-16.0 Platelet Count 173 160-400 Mean Platelet Volume 9.6 9.4-12. 4 NRBC Pct Auto 0.0 0.0-0.2 NRBC Abs Auto 0.000 0.0-0.012 Prothrombin Time INR 2022-04-03 Prothrombin Time 11.0 10.0-13.1 INTERNATIONAL NORM RATIO 1.0 0.9 -1.1 Liver Panel 2022-04-03 Bilirubin Total 0.6 0.0-1.0 Bilirubin Direct 0.2 0.0-0.5 Aspartate Amino Transferase 38 5-37 Alanine Aminotransferase 50 0-4 0 Total Protein 7.1 6.5-8.0 Albumin Level 4.2 3.5-5.0 Alkaline Phosphatase 106 39-117 Blood Urea Nitrogen 2022-04-03 Blood Urea Nitrogen 20 9-16 Creatinine 2022-04-03 Creatinine 1.15 0.5-1.4 Estimated Glomerular Filt Rate >60 Alpha Fetoprotein 2022-04-03 Alpha Fetoprotein 6.8 <6.1 LIVER PROFILE 2019-09-14 PROTEIN, TOTAL 6.9 6.5-8.0 ALBUMIN 4.3 3.5-5.0 BILIRUBIN, TOTAL 0.8 0.0-1.0 BILIRUBIN, DIRECT 0.4 0.0-0.5 ALK. PHOS. 76 39-117 GOT 32 5-37 GPT 46 0-40 CBC w/o DIFF 2019-09-14 WBC 9.6 4.8-10.8 RBC 3.98 4.60-5.80 HEMOGLOBIN 12.6 14.0-18.0 HEMATOCRIT 37.2 42-52 MCV 93.5 80-98 MCH 31.7 27.0-33.0 MCHC 33.9 31.0-36.0 PLATELET COUNT 193 160-400 RDW 12.9 11.0-16.0 HEPATITIS C VIRAL LOAD 2019-09-14 HEP C VIRAL LOAD <15 () HCV LOG PCR <1.18 () LIVER PROFILE 2019-07-17 PROTEIN, TOTAL 7.1 6.5-8.0 ALBUMIN 4.3 3.5-5.0 BILIRUBIN, TOTAL 0.7 0.0-1.0 BILIRUBIN, DIRECT 0.3 0.0-0.5 ALK. PHOS. 66 39-117 GOT 33 5-37 GPT 48 0-40 CBC w/o DIFF 2019-07-17 WBC 8.3 4.8-10.8 RBC 4.04 4.60-5.80 HEMOGLOBIN 13.2 14.0-18.0 HEMATOCRIT 38.8 42-52 MCV 95.9 80-98 MCH 32.7 27.0-33.0 MCHC 34.1 31.0-36.0 PLATELET COUNT 172 160-400 RDW 12.9 11.0-16.0 HEPATITIS C VIRAL LOAD 2019-07-17 HEP C VIRAL LOAD <15 () HCV LOG PCR <1.18 () MRI ABDOMEN WOW CONT 2019-06-06 BUN 2019-06-05 BUN 21 9-16 CREATININE 2019-06-05 CREATININE 1.29 0.5-1.4 ESTIMATED GFR 56 US ABD 2019-05-15 LIVER PROFILE 2019-04-07 PROTEIN, TOTAL 7.5 6.5-8.0 ALBUMIN 4.2 3.5-5.0 BILIRUBIN, TOTAL 1.3 0.0-1.0 BILIRUBIN, DIRECT 0.6 0.0-0.5 ALK. PHOS. 153 39-117 GOT 315 5-37 GPT 317 0-40 CBC w/o DIFF 2019-04-07 WBC 6.4 4.8-10.8 RBC 4.18 4.60-5.80 HEMOGLOBIN 13.3 14.0-18.0 HEMATOCRIT 37.7 42-52 MCV 90.2 80-98 MCH 31.7 27.0-33.0 MCHC 35.2 31.0-36.0 PLATELET COUNT 202 160-400 RDW 14.5 11.0-16.0 HEPATITIS A ANTIBODY-IGM 2019-04-07 HEPATITIS A ANTIBODY-IGM NONREACTIVE NON REACTIVE HEPATITIS A ANTIBODY IGM 0.18 0-0 .79 HEPATITIS B SURFACE ANTIGEN 2019-04-07 HEPATITIS B SURFACE ANTIGEN NEGATIVE NEGATIVE HEPATITIS B CORE ANTIBODY 2019-04-07 HEPATITIS B CORE ANTIBODY NONREACTIVE NO NREACTIVE HEPATITIS B SURFACE ANTIBODY 2019-04-07 HEPATITIS B SURFACE ANTIBODY NONREACTIVE NONREACTIVE HEPATITIS A ANTIBODY-IGG 2019-04-07 ANTI-HAV IGG REACTIVE NONREACTIVE HCV LIVER FIBROSIS, FIBRO TEST 2019-04-07 FIBROSIS SCORE 0.83 () FIBROSIS STAGE F4 () FIBROSIS INTERPRETATION SEE NOTE () NECROINFLAMMAT ACTIVITY SCORE 0.94 () NECROINFLAMMAT ACTIVITY GRADE A3 () NECROINFLAMMAT ACTIVITY INTERP SEE NOTE () [id number]-9-[id number] 273 106-279 HAPTOGLOBIN 156 43-212 APOLIPOPROTEIN A1 158 94-176 TOTAL BILIRUBIN 1.0 0.2-1.2 GGT 1017 3-70 ALT 278 9-46 REFERENCE ID [id number] () FOOTNOTE SEE NOTE () HCV RNA QN PROG TO GENOTYPE 2019-04-07 HCV RNA PCR QN [id number] () HCV RNA PCR QN 6.46 () HCV GENOTYPING SEE NOTE () HCV GENOTYPE LIPA 1a () GI BIOPSY 2018-10-21 G.I. BIOPSY GI BIOPSY 2015-02-08 G.I. BIOPSY REASON FOR VISIT olivier's, olivier's w/ dysplasia, liver lesion, 90 day famotidinerx request [facility], pathology , screening,cirrhosis of liver, labs/MRI, Patiient presents today for a colon recall, results from MRI, ultrasound/ mri faxed for appt/waiting on appt date and time on MRI, hep c, patient presents today for hep c, result letter, schedule MRI/ need lab order for bun and creatinine please, patient has not heard on his medication from pharmacy, HEP C, Looking for lab results, Dionna, Patient presents today for hep C, hep c, r/s, colonoscopy, rectal bleeding, patient stated Dr Rios stated okay to stop aspirin and Plavix 1 week before the procedure, stopping aspirin & plavix, Patients presents today for Rectal bleeding, LLQ pain w/Anemia, Hyoscyamine, LLQ pain w/Anemia, Hyoscyamine PA,patient presents today for LLQ pain w/Anemia, LLQ pain w/Anemia, R/S OV, BLOOD IN STOOL, blood in stool, screening, blood in stool Insurance Providers Health Insurance Type Health Plan Insurance Address Health Plan Insurance Phone Health Plan Insurance Name Health Plan Coverage Dates Member ID Patient Relationship to Subscriber Patient Address Patient Phone Patient Name Patient Date of Subscriber ID Subscriber Name Subscriber Date of Group No MEDICARE OF [place] [address] [facility] [phone] MED[place]ARE OF [place] self KAHLIL SIM [id number] MEDICAID OF [facility] [address] [facility] [phone] MEDICAID OF [facility] self KAHLIL SIM [id number] Medicare of [place] SECONDARY [address] [facility] [address] Medicare of [place] SECONDARY self KAHLIL SIM [id number] [place] [employer] PREFERRED [address] [facility] [address] [place] [employer] PREF[place] self KAHLILDULCE MARIA SIM [id number]
--- NOTE | 2022-10-26 12:05 | ED_ITS ---
HPI - Extremity Problem General Chief complaint: Extremity Problem Stated complaint: R wrist pain no inj Time Seen by Provider: 10/26/22 10:50 Source: patient, RN notes reviewed and old records reviewed Mode of arrival: ambulatory History of Present Illness HPI Narrative: 67-year-old male with past medical history of CAD, SVT, HTN, HLD, gout, presents to the ED complaining of atraumatic right wrist pain and swelling x3 days. Reports associated tingling. Reports decreased ROM secondary to pain. Denies fever/chills, CP/SOB, weakness MD Complaint: extremity pain and extremity swelling Onset (ago): day(s) Related Data Home Medications Medication Instructions Recorded Confirmed famotidine 40 mg tablet 40 mg PO DAILY 04/12/20 10/22/22 gabapentin 600 mg tablet 600 mg PO TID 04/12/20 10/22/22 lisinopril 40 mg tablet 40 mg PO DAILY 04/12/20 10/22/22 metoprolol tartrate 50 mg tablet 50 mg PO BID 04/12/20 10/22/22 umeclidinium 62.5 mcg/actuation 1 inh PO DAILY 04/12/20 10/22/22 blister powder for inhalation fluticasone fur. 200 mcg-umeclid 1 ea inhalation DAILY 09/26/20 10/22/22 62.5 mcg-vilant 25 mcg inhalat.powder pramipexole 0.25 mg tablet 0.25 mg PO 09/26/20 10/22/22 albuterol sulfate 90 mcg/actuation 0 mcg inhalation 10/26/22 aerosol inhaler pramipexole 0.5 mg tablet 0.5 mg PO BEDTIME 10/26/22 tramadol 50 mg tablet 50 mg PO Q6H PRN 10/26/22 Previous Rx's Medication Instructions Recorded ezetimibe 10 mg tablet (Zetia) 10 mg PO DAILY #90 tabs 09/26/20 omega-3 acid ethyl esters 1 gram 2 cap PO BID #90 caps 01/27/21 capsule ranolazine 500 mg tablet,extended 500 mg PO BID 90 days #180 tabs 04/06/22 release,12 hr (Ranexa) atorvastatin 40 mg tablet 40 mg PO BEDTIME #90 tabs 08/27/22 amlodipine 10 mg tablet 10 mg PO DAILY #90 tabs 09/09/22 cephalexin 500 mg capsule 500 mg PO QID 7 days #28 caps 10/26/22 naproxen 500 mg tablet 500 mg PO BID PRN pain 10 days #20 10/26/22 tabs oxycodone-acetaminophen 2.5 mg-325 1 tab PO Q8H PRN pain (scale score 10/26/22 mg tablet (Percocet) 7-10) 3 days #9 tabs prednisone 20 mg tablet 40 mg PO DAILY 5 days #10 tabs 10/26/22 Allergies Allergy/AdvReac Type Severity Reaction Status Date / Time No Known Allergies Allergy Verified 10/26/22 10:04 [No Known Allergies*] Review of Systems Review of Systems: Constitutional: No Fever, No Chills ENT/Mouth: No Ear Pain, No Nasal Congestion, No sore throat, No Rhinorrhea, No Swallowing Difficulty Cardiovascular: No Chest Pain, No SOB Respiratory: No Cough, No Sputum, No Wheezing Gastrointestinal: No Nausea, No Vomiting, No Abdominal pain Musculoskeletal: + joint pain, No Myalgias, + Joint Swelling Skin: No Skin Lesions, No rash Neuro: No Weakness, No Numbness, + Paresthesias Yes all other systems are reviewed and are negative Constitutional: Constitutional: Reports as per [facility] Past Medical History Attestation statement: The following information was validated with the patient. Source: old records reviewed Medical History Anemia Asthma CAD (coronary artery disease) COPD (chronic obstructive pulmonary disease) Hepatitis C HTN (hypertension) Hyperlipidemia XAVIER (obstructive sleep apnea) Renal stones SVT (supraventricular tachycardia) Surgical History History of back surgery Hx of cardiac cath Hx of thyroidectomy S/P lobectomy of lung (~05/2021) Stented coronary artery Family History Family History Father Cancer Mother CVD (cardiovascular disease) Social History Social History Alcohol intake: current Alcohol intake frequency: 3 or more drinks per day Alcohol type: hard liquor Patient Tobacco Use Status: Current everyday Tobacco user Tobacco use type: Cigarette Cigarette Packs Per Day: 1 Substance Use Type: Marijuana Advance Directives: No Advance Directives Information Provided: No Physical Exam Vital Signs: Vital Signs: Last Vital Signs Temp 97.5 F 10/26/22 10:43 Pulse 68 10/26/22 10:43 Resp 16 10/26/22 10:43 BP 123/69 10/26/22 10:43 Pulse Ox 96 10/26/22 10:43 O2 Del Method Room Air 10/26/22 10:43 BMI result Body Mass Index 31.9 Const: General: cooperative, healthy appearing and no acute distress Orientation/consciousness: patient oriented x3 Limitations: no limitations HEENT: Head: Yes normal to inspection and Yes atraumatic Ears: hearing grossly normal bilaterally General nose exam: Normal external nose present Face and sinus: Yes normal facial exam Eyes: General: appearance normal, both eyes and all related structures EOM: EOMs intact bilaterally Neck: Neck: Yes normal visual inspection and Yes no meningeal signs Resp: Effort & Inspection: normal respiratory effort and no respiratory distress Cardio: Rate: regular rate Peripheral pulses: radial pulses present and ulnar radial pulses present Skin: Rashes: no rashes Wounds: no wounds Neuro: General: patient oriented x3, tone normal and no meningeal signs Gait exam (Neuro): Normal gait present Extrem: Other: Right wrist/hand with noted swelling, erythema and warmth with mild lymphangitis to palmar aspect. Limited ROM secondary to pain. Diffusely tender to palpation. Neurovascularly intact. No crepitus. Elbow nontender. Pronation/supination intact. Course Course Course Narrative: -1308--mild leukocytosis of 11.1. H&H at patient's baseline. ESR elevated to 38, CRP mildly elevated to 1.7 -BUN elevated to 27 (chronically elevated). Uric acid elevated to 10.7 XR hand wrist RT IMPRESSION: Mild soft tissue swelling and degenerative joint changes most consistent with osteoarthritis. No acute fracture > results discussed with patient, will empirically treat for early cellulitis as well as gouty flare Results discussed with patient including worrisome signs and symptoms and strict return precautions, and when to return to the emergency department. They verbalized understanding and feel safe for discharge at this time. Medications Administered Discontinued Medications Generic Name Dose Route Start Last Admin Trade Name Freq PRN Reason Stop Dose Admin Ketorolac Tromethamine 30 mg 10/26/22 11:21 10/26/22 12:19 Ketorolac Tromethamine 30 Mg/Ml Vial IM 10/26/22 11:22 30 mg ONCE ONE Administration Medical Decision Making Medical Decision Making [facility] Narrative: 67-year-old male with past medical history of CAD, SVT, HTN, HLD, gout, presents to the ED complaining of atraumatic right wrist pain and swelling x3 days. On exam vital signs stable, NAD, nontoxic appearing, physical exam as noted above with right wrist/hand swelling with erythema and warmth. Mild lymphangitis to palmar aspect, diffusely tender to palpation. Neurovascular intact. Concern for gout vs arthritis vs early cellulitis. Lower suspicion for septic joint/a rthritis at this time, rule out fracture. Low suspicion for DVT/vascular/arterial compromise Plan: X-ray, labs, Toradol, re-evaluate Please refer to course for remaining clinical decision making, interpretation of labs/imaging results, and discussions with consultants and/or family members. Differential Diagnosis Differential Diagnoses: The differential diagnosis associated with the presentation includes As above Admission/Observation Consideration of admission/observation: Escalation of care including admission/observation considered Lab Data [facility] Lab Attestation statement: I reviewed the patient's lab results. 10/26/22 11:58 10/26/22 11:58 Labs: Lab Results 10/26/22 10/26/22 10/26/22 Range/Units 11:58 11:58 11:58 WBC 11.1 H (4.8-10.8) X10*3/uL RBC 3.74 L (4.60-5.80) X10*6/uL Hgb 12.2 L (14.0-18.0) g/dl Hct 36.2 L (42.0-52.0) % MCV 96.8 (80.0-98.0) fL MCH 32.6 (27.0-33.0) pg MCHC 33.7 (31.0-36.0) g/dl RDW 13.3 (11.0-16.0) % Plt Count 153 L (160-400) X10*3/uL MPV 9.1 L (9.4-12.4) fL Immature Gran % (Auto) 1.2 H (0.0-0.4) % Neut % (Auto) 70.5 (45-73) % Lymph % (Auto) 12.8 L (20-40) % [place] % (Auto) 14.4 H (2-11) % Eos % (Auto) 0.5 (0-4) % Baso % (Auto) 0.6 (0-2) % Lymph # (Auto) 1.4 (1.2-4.9) X10*3/uL [place] # (Auto) 1.6 H (0.1-1.2) X10*3/uL Eos # (Auto) 0.1 (0.0-0.4) X10*3/uL Baso # (Auto) 0.1 (0.0-0.2) X10*3/uL Abs Immat Gran (auto) 0.13 H (0.00-0.03) X10*3/uL Absolute Neuts (auto) 7.8 (2.0-8.3) x10*3/uL Absolute Nucleated RBC 0.000 (0.0-0.012) X10*3/uL Nucleated RBC % (auto) 0.0 (0.0-0.2) /100WBC Smear Tech's Comments VERIFIED ESR 38 H (0-15) MM/HR Sodium 134 L (135-145) mmol/L Potassium 4.6 (3.3-5.1) mmol/L Chloride 104 (96-108) mmol/L Carbon Dioxide 19 L (22-29) mmol/L Anion Gap 16 (12-20) BUN 27 H (9-16) mg/dL Creatinine 1.30 (0.5-1.4) mg/dL Estim Creat Clear Calc 68.6 Estimated GFR 55 Random Glucose 112 (60-115) mg/dL Uric Acid 10.7 H (3.4-7.0) mg/dL Calcium 10.0 D (8.4-10.2) mg/dL C-Reactive Protein 1.71 H (< or = 0.50) mg/dL Radiology Impression Discussion of test interpretation with radiology: I have reviewed the radiologis t's reading. External Record Review External record reviewed: Inpatient record, Office record, Outpatient record, Prior outpatient labs, Prior outpatient radiology, Primary care record and Outside ED record Tests considered The following testing was considered but not selected: As above Prescription Management I considered prescription management with: Pain Medication and Antibiotic Chronic Conditions Patient?s care impacted by: Hypertension Discharge Plan Discharge Clinical Impression: Gout, Cellulitis Patient Disposition: Home, Self-Care Instructions: Cellulitis (DC), Low Purine Diet (ED), Gout (ED) Additional Instructions: Your blood work shows elevation in her inflammatory markers. your x-ray show some soft tissue swelling as well as osteoarthritis Wear splint as needed for comfort Elevate Naproxen as an anti-inflammatory/pain medication, take with food Prednisone as a steroid which will help with inflammation/gouty flare Percocet is opiate pain medication, take only when pain is severe for the next 3 days Keflex as an antibiotic If redness is increasing, extending up her arm, you have fever, pain were swelling is persistent/worsening return to the emergency department Prescriptions: New prednisone 20 mg tablet 40 mg PO DAILY 5 Days Qty: 10 0RF cephalexin 500 mg capsule 500 mg PO QID 7 Days Qty: 28 0RF naproxen 500 mg tablet 500 mg PO BID PRN (Reason: pain) 10 Days Qty: 20 0RF oxycodone-acetaminophen [Percocet] 2.5-325 mg tablet 1 tab PO Q8H PRN (Reason: pain (scale score 7-10)) 3 Days Qty: 9 0RF Rx Instructions: Partial Fill upon patient request. No Action omega-3 acid ethyl esters 1 gram capsule 2 cap PO BID Qty: 90 3RF ranolazine [Ranexa] 500 mg tablet extended release 12 hr 500 mg PO BID 90 Days Qty: 180 3RF atorvastatin 40 mg tablet 40 mg PO BEDTIME Qty: 90 3RF amlodipine 10 mg tablet 10 mg PO DAILY Qty: 90 3RF Trelegy Ellipta 200-62.5-25 mcg blister with device 1 ea inhalation DAILY ezetimibe [Zetia] 10 mg tablet 10 mg PO DAILY Qty: 90 3RF gabapentin 600 mg tablet 600 mg PO TID Incruse Ellipta 62.5 mcg/actuation blister with device 1 inh PO DAILY lisinopril 40 mg tablet 40 mg PO DAILY metoprolol tartrate 50 mg tablet 50 mg PO BID famotidine 40 mg tablet 40 mg PO DAILY pramipexole 0.25 mg tablet 0.25 mg PO albuterol sulfate 90 mcg/actuation HFA aerosol inhaler 0 mcg inhalation pramipexole 0.5 mg tablet 0.5 mg PO BEDTIME tramadol 50 mg tablet 50 mg PO Q6H PRN Referrals: Kojo Fermin MD [Primary Care Provider] - 3 days Interventions: ED Discharge Assessment Last Done: 10/26/22 14:06 Discharge Date/Time: 10/26/22 14:07
[2022-10-26 12:06] LABS: Basophils Absolute Auto 0.1 X10*3/uL (0.0-0.2); Basophils Percent Auto 0.6 % (0-2); Eosinophils Absolute Auto 0.1 X10*3/uL (0.0-0.4); Eosinophils Percent Auto 0.5 % (0-4); Hematocrit 36.2 % (42.0-52.0); Hemoglobin 12.2 g/dl (14.0-18.0); Imm Gran Abs Auto 0.13 X10*3/uL (0.00-0.03); Imm Gran Pct Auto 1.2 % (0.0-0.4); Lymphocytes Absolute Auto 1.4 X10*3/uL (1.2-4.9); Lymphocytes Percent Auto 12.8 % (20-40); MANUAL DIFF FLAG SCAN; Mean Corpuscular HGB Conc 33.7 g/dl (31.0-36.0); Mean Corpuscular Hemoglobin 32.6 pg (27.0-33.0); Mean Corpuscular Volume 96.8 fL (80.0-98.0); Mean Platelet Volume 9.1 fL (9.4-12.4); Monocytes Absolute Auto 1.6 X10*3/uL (0.1-1.2); Monocytes Percent Auto 14.4 % (2-11); Neutrophils Absolute Auto 7.8 x10*3/uL (2.0-8.3); Neutrophils Percent Auto 70.5 % (45-73); Platelet Count 153 X10*3/uL (160-400); Red Blood Count 3.74 X10*6/uL (4.60-5.80); Red Cell Distribution Width 13.3 % (11.0-16.0); SCAN SMEAR FLAG 1; White Blood Count 11.1 X10*3/uL (4.8-10.8)
[2022-10-26] MEDS: Ketorolac Tromethamine 30 MG/ML VIAL IM (12:19)
[2022-10-26 12:28] LABS: SLIDE REVIEW VERIFIED
[2022-10-26 12:31] LABS: Anion Gap 16 (12-20); Blood Urea Nitrogen 27 mg/dL (9-16); C Reactive Protein 1.71 mg/dL (< or = 0.50); Carbon Dioxide 19 mmol/L (22-29); Chloride 104 mmol/L (96-108); Creatinine Clr Calc Pharmacy 68.6; Estimated Glomerular Filt Rate 55; Glucose Random 112 mg/dL (60-115); Potassium 4.6 mmol/L (3.3-5.1); Sodium 134 mmol/L (135-145)
--- NOTE | 2022-10-26 12:39 | PC.NURSE ---
pt medicated per MAR
[2022-10-26 12:40] LABS: Erythrocyte Sedimentation Rate 38 MM/HR (0-15)
[2022-10-26 13:06] LABS: Uric Acid 10.7 mg/dL (3.4-7.0)
== END 2022-10-26 14:07 | disposition home or self-care (01) ==
PROVIDERS: Physician Assistant; Emergency Provider Emergency Medicine; PCP Internal Medicine
DX: M10.9 Gout, unspecified (principal); L03.113 Cellulitis of right upper limb; M19.031 Primary osteoarthritis, right wrist; I10 Essential (primary) hypertension; E78.5 Hyperlipidemia, unspecified; F17.210 Nicotine dependence, cigarettes, uncomplicated; F12.90 Cannabis use, unspecified, uncomplicated; Z79.899 Other long term (current) drug therapy
CPT/HCPCS: 36415; 73110; 73130; 80048; 84550; 85025; 85652; 86140; 96372; 99202; 99283; 99284; J1885

== ENCOUNTER 2022-11-11 11:09 | Day surgery (SDC) | payer MEDICARE, MEDICAID, SELFPAY ==
--- NOTE | 2022-11-10 10:28 | P.CONAN_ITS ---
Documented by User: Viry Soler NP 11/10/22 10:30 HPI - Anesthesia Eval Consult details Narrative: 67yo M for Upper Endoscopy with [facility] Stable CAD and SVT at yearly cardiac office visit 10/2022 s/p EGD, [place] with [facility]A 03/2022 ETOH, smoker PMFSH Active Problems Active Problems: All Active Problems (Updated 10/28/22 @ 15:20 by JORGITO Little) Post laminectomy syndrome (Acute) Alcohol dependence (Acute) Lumbar radiculopathy (Acute) Lumbar spondylosis (Acute) CAD (coronary artery disease) (Acute) SVT (supraventricular tachycardia) (Acute) HTN (hypertension) (Acute) Hyperlipidemia (Acute) Past Medical History Medical History Alcohol dependence Anemia Asthma CAD (coronary artery disease) COPD (chronic obstructive pulmonary disease) Hepatitis C HTN (hypertension) Hyperlipidemia XAVIER (obstructive sleep apnea) Post laminectomy syndrome Renal stones SVT (supraventricular tachycardia) Family History Family History Father Cancer Mother CVD (cardiovascular disease) Family history of problems with anesthesia: No Surgical History Surgical History History of back surgery Hx of cardiac cath Hx of thyroidectomy S/P lobectomy of lung (~05/2021) Stented coronary artery History of Problems with Anesthesia: No Social History Social History Alcohol intake: current Alcohol intake frequency: 3 or more drinks per day Alcohol type: hard liquor Patient Tobacco Use Status: Current everyday Tobacco user Tobacco use type: Cigarette Cigarette Packs Per Day: 1 Substance Use Type: Marijuana Advance Directives: No Advance Directives Information Provided: Yes Meds Allergies Allergy/AdvReac Type Severity Reaction Status Date / Time No Known Allergies Allergy Verified 10/26/22 10:04 [No Known Allergies*] Home Medications Medication Instructions Recorded Confirmed Last Taken Type famotidine 40 mg tablet 40 mg PO DAILY 04/12/20 10/22/22 Unknown History gabapentin 600 mg tablet 600 mg PO TID 04/12/20 10/22/22 Unknown History lisinopril 40 mg tablet 40 mg PO DAILY 04/12/20 10/22/22 Unknown History metoprolol tartrate 50 mg tablet 50 mg PO BID 04/12/20 10/22/22 Unknown History umeclidinium 62.5 mcg/actuation 1 inh PO DAILY 04/12/20 10/22/22 Unknown History blister powder for inhalation fluticasone fur. 200 mcg-umeclid 1 ea inhalation DAILY 09/26/20 10/22/22 Unknown History 62.5 mcg-vilant 25 mcg inhalat.powder pramipexole 0.25 mg tablet 0.25 mg PO 09/26/20 10/22/22 Unknown History albuterol sulfate 90 mcg/actuation 0 mcg inhalation 10/26/22 Unknown History aerosol inhaler pramipexole 0.5 mg tablet 0.5 mg PO BEDTIME 10/26/22 Unknown History tramadol 50 mg tablet 50 mg PO Q6H PRN 10/26/22 Unknown History Exam Exam Date and Time: November 10, 2022 1028 Pertinent Lab Results Pertinent Lab Results: Laboratory Tests 10/26/22 10/26/22 11:58 11:58 WBC 11.1 H Hgb 12.2 L Hct 36.2 L Plt Count 153 L Sodium 134 L Potassium 4.6 Chloride 104 Carbon Dioxide 19 L BUN 27 H Creatinine 1.30 Narrative Narrative: EKG 10/2022 normal sinus rhythm with Q-waves, small in inferior leads with poor R-wave progression Assessment and Plan Assessment Anesthesia Assessment: Chart Reviewed Final Anesthetic Review Family History of Problems with Anesthesia: No History of Problems with Anesthesia: No Documented by User: Miriam Saul MD 11/11/22 12:53 PMFSH Past Medical History Medical History Alcohol dependence Anemia Asthma CAD (coronary artery disease) COPD (chronic obstructive pulmonary disease) Hepatitis C HTN (hypertension) Hyperlipidemia XAVIER (obstructive sleep apnea) Post laminectomy syndrome Renal stones SVT (supraventricular tachycardia) Family History Family History Father Cancer Mother CVD (cardiovascular disease) Surgical History Surgical History History of back surgery Hx of cardiac cath Hx of thyroidectomy S/P lobectomy of lung (~05/2021) Stented coronary artery Social History Social History Alcohol intake: current Alcohol intake frequency: 3 or more drinks per day Alcohol type: hard liquor Patient Tobacco Use Status: Current everyday Tobacco user Tobacco use type: Cigarette Cigarette Packs Per Day: 1 Substance Use Type: Marijuana Advance Directives: No Advance Directives Information Provided: Yes Meds Allergies Allergy/AdvReac Type Severity Reaction Status Date / Time No Known Allergies Allergy Verified 10/26/22 10:04 [No Known Allergies*] Home Medications Medication Instructions Recorded Confirmed Last Taken Type famotidine 40 mg tablet 40 mg PO DAILY 04/12/20 10/22/22 Unknown History gabapentin 600 mg tablet 600 mg PO TID 04/12/20 10/22/22 Unknown History lisinopril 40 mg tablet 40 mg PO DAILY 04/12/20 10/22/22 Unknown History metoprolol tartrate 50 mg tablet 50 mg PO BID 04/12/20 10/22/22 Unknown History umeclidinium 62.5 mcg/actuation 1 inh PO DAILY 04/12/20 10/22/22 Unknown History blister powder for inhalation fluticasone fur. 200 mcg-umeclid 1 ea inhalation DAILY 09/26/20 10/22/22 Unknown History 62.5 mcg-vilant 25 mcg inhalat.powder pramipexole 0.25 mg tablet 0.25 mg PO 09/26/20 10/22/22 Unknown History albuterol sulfate 90 mcg/actuation 0 mcg inhalation 10/26/22 Unknown History aerosol inhaler pramipexole 0.5 mg tablet 0.5 mg PO BEDTIME 10/26/22 Unknown History tramadol 50 mg tablet 50 mg PO Q6H PRN 08/07/23 Unknown History Exam Airway Mallampati Class: II TM Dist: >3cm Neck ROM: Full Heart: rrr Lungs: wheezy getting resp treatment Assessment and Plan Assessment Anesthesia Assessment: Anesthesia Plan Discussed and Smoking Cess. Discussed Final Anesthetic Review ASA Class: III Final Preanesthetic Review: No Changes in Pt Med Stat, Meds/Allgs Chart Reviewed, Consent Obtained/Reviewed and Anes Risks/Benef Reviewed Patient Risk: Intermediate Procedure Risk: Low Anesthetic Plan Anesthetic Plan: MAC: Disposition: Standard PACU
--- OUTSIDE RECORDS SUMMARY | 2022-11-11 11:12 | XMS_ITS ---
Author Name Power Barrera Jr Address [address] [place] [address] Organization [facility] Address [address] [place] [address] Care Team Providers Care County Court Judge Name Role Phone Bruce Nava Power Unavailable [phone] PROBLEMS Type Condition ICD9-CM Code CHB63-JP Code Onset Dates Condition Status SNOMED Code Problem Chronic hepatitis C without hepatic coma B18.2 Active 968799801 Problem Elevated liver function tests R94.5 Active 559577889 Problem Liver mass R16.0 Active 292621353 Problem Other cirrhosis of liver K74.69 Active 49748037 Problem Rectal bleeding K62.5 Active 22219262 Problem 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 Active 797926370 Problem Left lower quadrant pain R10.32 Active 116342063 Problem Focal nodular hyperplasia of liver K76.89 Active 504310338 Problem Abnormal ultrasound of liver R93.2 Active 706906389 Problem Colon cancer screening Z12.11 Active 291182046 Problem Abnormal MRI, liver R93.2 Active ALLERGIES No Known Allergies ENCOUNTERS Encounter Location Date Diagnosis [facility] Outpatient [address] [place] [id number] Oct, [facility] [address] [place] [phone] Oct, [facility] [address] [place] [phone] May, [facility] [address] [place] [id number] Apr, 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 [facility] Outpatient [address], [place] [id number] Mar, Encounter for screening colonoscopy Z12.11 ; Colon polyps K63.5 and Other cirrhosis of liver K74.69 [facility] [address] [place] [phone] 17 Mar, 2022 [facility] [address] [place] [id number] 09 Mar, 2022 Abnormal MRI, liver R93.2 ; Other cirrhosis of liver K74.69 and Colon cancer screening Z12.11 [facility] [address] [place] [phone] Jan, Liver mass R16.0 [facility] [address] [place] [address] Dec, Abnormal ultrasound of liver R93.2 [facility] [address] [place] [id number] Sep, Chronic hepatitis C without hepatic coma B18.2 and Abnormal ultrasound of liver R93.2 [facility] [address] [place] [phone] July, [facility] [address] [place] [phone] May, Abnormal ultrasound of liver R93.2 [facility] [address] [place] [id number] May, Abnormal ultrasound of liver R93.2 ; Liver mass R16.0 and Focal nodular hyperplasia of liver K76.89 [facility] [address] [place] [id number] Apr, [facility] [address] [place] [phone] Apr, Elevated liver function tests R94.5 [facility] [address] [place] [phone] Mar, Chronic hepatitis C without hepatic coma B18.2 [facility] [address] [place] [phone] Mar, Chronic hepatitis C without hepatic coma B18.2 [facility] [address] [place] [address] Feb, [facility] [address] [place] [address] Oct, [facility] Outpatient [address], [place] [id number] Oct, [facility] [address] [place] [address] Sep, [facility] [address] [place] [address] Aug, [facility] [address] [place] [address] Aug, Rectal bleeding K62.5 [facility] [address] [place] [address] May, [facility] [address] [place] [address] May, [facility] [address] [place] [address] May, Left lower quadrant pain R10.32 [facility] [address] [place] [address] Apr, [facility] Outpatient [address], [place] [id number] Jan, [facility] [address] [facility] [place] [address] July, Blood in stool 578.1 [facility] Outpatient [address] [place] [id number] Aug, [facility] ER [address], [place] [id number] Aug, IMMUNIZATIONS Vaccine Route Administration Date Status [...] day 1 tablet 12h 90 days Active [place] 3 1000 MG Orally Once a day [...] 2022 RESULTS Name Result Date Reference Range Complete Blood Count Auto Diff 2022-10-23 White Blood Count 8.9 4.8-10.8 Red Blood Count 3.79 4.60-5.80 Hemoglobin 12.7 14.0-18.0 Hematocrit 36.9 42.0-52.0 Mean Corpuscular Volume 97.4 80.0 -98.0 Mean Corpuscular Hemoglobin 33.5 27.0-33.0 Mean Corpuscular HGB Conc 34.4 31 .0-36.0 Red Cell Distribution Width 13.4 11.0-16.0 Platelet Count 171 160-400 Mean Platelet Volume 9.6 9.4-12. 4 Neutrophils Percent Auto 64.7 45- 73 Imm Gran Pct Auto 1.2 0.0-0.4 Lymphocytes Percent Auto 19.8 20- 40 Monocytes Percent Auto 12.0 2-11 Eosinophils Percent Auto 1.4 0-4 Basophils Percent Auto 0.9 0-2 NRBC Pct Auto 0.0 0.0-0.2 Neutrophils Absolute Auto 5.7 2. 0-8.3 Imm Gran Abs Auto 0.11 0.00-0.03 Lymphocytes Absolute Auto 1.8 1. 2-4.9 Monocytes Absolute Auto 1.1 0.1- 1.2 Eosinophils Absolute Auto 0.1 0. 0-0.4 Basophils Absolute Auto 0.1 0.0- 0.2 NRBC Abs Auto 0.000 0.0-0.012 Prothrombin Time INR 2022-10-23 Prothrombin Time 11.4 11.1-13.3 INTERNATIONAL NORM RATIO 0.9 0.9 -1.1 Liver Panel 2022-10-23 Bilirubin Total 0.7 0.0-1.0 Bilirubin Direct 0.2 0.0-0.5 Aspartate Amino Transferase 35 5-37 Alanine Aminotransferase 42 0-4 0 Total Protein 7.3 6.5-8.0 Albumin Level 4.2 3.5-5.0 Alkaline Phosphatase 94 39-117 Pathology 2022-04-15 MR abdomen wo/w con 2022-04-06 [...] () NECROINFLAMMAT ACTIVITY INTERP SEE NOTE () XMAJH-[id number]-IOZZXHDPUOGY 273 106-279 HAPTOGLOBIN 156 43-212 APOLIPOPROTEIN A1 158 94-176 TOTAL BILIRUBIN 1.0 0.2-1.2 GGT 1017 3-70 ALT 278 9-46 REFERENCE ID [id number] () FOOTNOTE SEE NOTE () HCV RNA QN PROG TO GENOTYPE 2019-04-07 HCV RNA PCR QN [id number] () HCV RNA PCR QN 6.46 () HCV GENOTYPING SEE NOTE () HCV GENOTYPE LIPA 1a () GI BIOPSY 2018-10-21 G.I. BIOPSY GI BIOPSY 2015-02-08 G.I. BIOPSY REASON FOR VISIT olivier's, olivier's w/ dysplasia, labs, liver lesion, 90 day famotidinerx [facility], pathology , screening,cirrhosis of liver, labs/MRI, Patiient presents today for a colon recall, results from MRI, ultrasound/ mri faxed for appt/waiting on appt date and time on MRI, hep c, patient presents today for hep c, result letter, schedule MRI/ need lab order for bun and creatinine please,patient has not heard on his medication from pharmacy, HEP C, Looking for lab resultsDionna, Patient presents today for hep C, hep c, r/s, colonoscopy, rectal bleeding, patient stated Dr Rios stated okay to stop aspirin and Plavix 1 week before the procedure, stopping aspirin & plavix, Patients presents today for Rectal bleeding, LLQ pain w/Anemia, Hyoscyamine, LLQ pain w/Anemia, Hyoscyamine ESHA, patient presents today for LLQ pain w/Anemia, LLQ [...] Subscriber Name Subscriber Date of Group No MEDICAID OF [facility] [address] [facility] [id number] MEDICAID OF [facility] self KAHLIL SIM [id number] [employer] MEDICARE PREFERRED [address] [place] [address] [employer] PREF[employer] self KAHLIL [place] [id number] [place] OF [place] [address] [facility] [address] MEDICARE OF [place] self KAHLIL SIM [id number] [place] SEC[place] [address] [facility] [address] [place] KAHLILDULCE MARIA SIM [id number]
[2022-11-11 12:49] VITALS: BP 157/80; PULSE 77; RESP 18; TEMP 36.1; O2SAT 97; BMI 31.7
--- NOTE | 2022-11-11 12:51 | P.HPSUR_ITS ---
Pre-Procedural Eval Section A Date of Service: 11/11/22 Section B Chief Complaint: Cedeno's esophagus with dysplasia, unspecified Details of Present Illness: see H*P no changes Relevant Family History (Specify if Yes): No Relevant Social History: Alcohol Use Present Medications: None Medical History: No relevant PMH History of Previous Operations: No relevant previous surgery Allergies: Allergies Allergy/AdvReac Type Severity Reaction Status Date / Time No Known Allergies Allergy Verified 10/26/22 10:04 [No Known Allergies*] Review of Systems Sugical H&P ROS: Negative: Constitution, Cardiovascular, Respiratory, Neurologi yudith, Psychiatric, Hem-Onc, Allergic/Immunologic, Gastrointestinal, Genitourinary, Musculoskeletal, Integumentary, Endocrine and Eyes/Ears/Nose/Throat Exam Surgical H&P Exam: Normal: HEENT, Normal: Heart, Normal: Lungs, Normal: Extremities, Normal: Abdomen, Normal: Skin and Normal: Neurological Plan Diagnosis/Plan: Unchanged I have reviewed the history and physical and performed a pertinent physical examination on my patient. No changes have occurred unless specified. Time Spent With Patient Time: Total time managing care of this patient today ____ minutes.
[2022-11-11 12:54] VITALS: PULSE 75; RESP 16; O2SAT 97
[2022-11-11] MEDS: Albuterol Sulfate (0.083%) 2.5 MG/3 ML VIAL.NEB INHALE (12:54)
[2022-11-11] MEDS: Lactated Ringers 1,000 ML 100 ML IVCONT (12:58)
--- NOTE | 2022-11-11 13:38 | PM.OP ---
Brief Operative Note Date of Service: 11/11/22 Pre-op diagnosis: barretts Post-op diagnosis: same Procedure: egd Surgeon: Power Barrera Anesthesia: MAC Was an Pile Driver used for this Procedure?: No Estimated blood loss (mL): 5 Pathology: other Condition: stable Disposition: PACU
[2022-11-11 13:41] VITALS: BP 127/67; PULSE 90; RESP 18; TEMP 36.8; O2SAT 95
[2022-11-11 14:03] VITALS: BP 136/71; PULSE 81; RESP 16; TEMP 36.1; O2SAT 95
--- NOTE | 2022-11-11 14:11 | OP_ITS ---
DATE OF SERVICE: 11/11/2022 SURGEON: Power Barrera MD INDICATIONS: Cedeno esophagus, indefinite for dysplasia. PREOPERATIVE DIAGNOSIS: POSTOPERATIVE DIAGNOSIS: PROCEDURE PERFORMED: Upper endoscopy with biopsy and brushings. ESTIMATED BLOOD LOSS: COMPLICATIONS: ANESTHESIA: Monitored anesthesia care. ASSISTANTS: SPECIMENS: DESCRIPTION OF PROCEDURE: A history and physical was performed. The risks and benefits of the procedure were explained to the patient. Informed consent was obtained. The patient was placed in the left lateral decubitus position. The Olympus video gastroscope was introduced into the esophagus, stomach, and duodenum. Examination was performed. The scope was removed. He tolerated the procedure well and was returned to the recovery area in stable condition. FINDINGS: Esophagus: There was a 1 to 1.5 cm area of Cedeno esophagus at the EG junction with no raised lesions or ulcerated areas. There was no esophagitis. There was a small hiatal hernia. Stomach: The stomach showed diffuse petechial erythema consistent with gastropathy. Biopsies were not obtained. Duodenum: The bulb and 2nd portion were normal. Cytology brushings were obtained for wide area tissue sampling protocol. Biopsies were obtained at the EG junction and at 36 cm. IMPRESSION: Cedeno esophagus. RECOMMENDATION: Follow up the biopsy results. MD YOUNG Prasad/EMILIAL / [id number]
== END 2022-11-11 14:49 | disposition home or self-care (01) ==
PROVIDERS: PCP Internal Medicine; Visit Provider Internal Medicine Gastroenterology
PROC: 0DJ08ZZ Inspection of Upper Intestinal Tract, Via Natural or Artificial Opening Endoscopic (ICD-10-PCS; CPT 43235; principal; 2022-11-11 13:00)
DX: K22.70 Barrett's esophagus without dysplasia (principal); K44.9 Diaphragmatic hernia without obstruction or gangrene; I10 Essential (primary) hypertension; E78.5 Hyperlipidemia, unspecified; J45.909 Unspecified asthma, uncomplicated; D64.9 Anemia, unspecified; F17.210 Nicotine dependence, cigarettes, uncomplicated; F12.90 Cannabis use, unspecified, uncomplicated; F10.20 Alcohol dependence, uncomplicated; Y90.9 Presence of alcohol in blood, level not specified; I47.1 Supraventricular tachycardia; Z79.899 Other long term (current) drug therapy
CPT/HCPCS: 43239; 88305; 94640; J1100; J2250

== ENCOUNTER 2023-02-04 14:00 | Outpatient (REF) | payer MEDICARE, MEDICAID, SELFPAY ==
--- NOTE | ~2023-02-04 | US_ITS ---
EXAMINATION: NONINVASIVE ASSESSMENT OF THE ARTERIES OF BOTH LOWER EXTREMITIES WITH PVR EXAM AND BILATERAL LOWER EXTREMITY DUPLEX Nora Castillo MD CLINICAL INFORMATION: Peripheral vascular disease TECHNIQUE: Ankle pulse volume recordings, ankle pressure measurements and ankle brachial indices were obtained of the lower extremity arterial system bilaterally in addition to duplex Doppler techniques with wave form analysis and measurement of velocities in the common femoral, profunda femoral, superficial femoral, popliteal and tibial arteries. The study was performed only at rest. COMPARISON: None FINDINGS: a) AT REST: RIGHT LE. The right ankle-brachial index is: 1.53 * >0.97-1.25 = normal - no significant arterial disease * 0.75-0.96 = mild peripheral arterial disease * 0.5-0.74 = moderate peripheral arterial disease * <0.50 = severe peripheral arterial disease 2. Right ankle pressure: Abnormal 3. Right ankle PVR waveform: Abnormal 4. Right direct duplex Doppler findings: Common femoral artery: 151 cm/s, Multiphasic Profunda femoris artery: 63 cm/s, Multiphasic Superficial femoral artery (proximal): 51 cm/s, Multiphasic Superficial femoral artery (mid): 60 cm/s, monophasic Superficial femoral artery (distal): 58 cm/s, monophasic Proximal Popliteal artery: 45 cm/s, monophasic Mid posterior tibial artery: 36 cm/s, monophasic LEFT LE. The left ankle-brachial index is: 1.52 * >0.97-1.25 = normal - no significant arterial disease * 0.75-0.96 = mild peripheral arterial disease * 0.5-0.74 = moderate peripheral arterial disease * <0.50 = severe peripheral arterial disease 2. Left ankle pressure: Abnormal 3. Left ankle PVR waveform: Abnormal 4. Left direct duplex Doppler findings: Common femoral artery: 170 cm/s, Multiphasic Profunda femoris artery: 67 cm/s, Multiphasic Superficial femoral artery (proximal): Occluded Superficial femoral artery (mid): 13 cm/s, monophasic Superficial femoral artery (distal): 40 cm/s, monophasic Proximal Popliteal artery: 42 cm/s, monophasic There are multiple left thigh arterial collaterals. US/US KELSEY complete IMPRESSION: RIGHT LEG: Elevated KELSEY suggesting calcified vessels. Abnormal ankle pressure and PVR. LEFT LEG: Severe peripheral arterial disease with occlusion of the proximal left superficial femoral artery and monophasic flow throughout the left lower extremity.
--- NOTE | ~2023-02-04 | US_ITS ---
EXAMINATION: NONINVASIVE ASSESSMENT OF THE ARTERIES OF BOTH LOWER EXTREMITIES WITH PVR EXAM AND BILATERAL LOWER EXTREMITY DUPLEX Nora Castillo MD CLINICAL INFORMATION: Peripheral vascular disease TECHNIQUE: Ankle pulse volume recordings, ankle pressure measurements and ankle brachial indices were obtained of the lower extremity arterial system bilaterally in addition to duplex Doppler techniques with wave form analysis and measurement of velocities in the common femoral, profunda femoral, superficial femoral, popliteal and tibial arteries. The study was performed only at rest. COMPARISON: None FINDINGS: a) AT REST: RIGHT LE. The right ankle-brachial index is: 1.53 * >0.97-1.25 = normal - no significant arterial disease * 0.75-0.96 = mild peripheral arterial disease * 0.5-0.74 = moderate peripheral arterial disease * <0.50 = severe peripheral arterial disease 2. Right ankle pressure: Abnormal 3. Right ankle PVR waveform: Abnormal 4. Right direct duplex Doppler findings: Common femoral artery: 151 cm/s, Multiphasic Profunda femoris artery: 63 cm/s, Multiphasic Superficial femoral artery (proximal): 51 cm/s, Multiphasic Superficial femoral artery (mid): 60 cm/s, monophasic Superficial femoral artery (distal): 58 cm/s, monophasic Proximal Popliteal artery: 45 cm/s, monophasic Mid posterior tibial artery: 36 cm/s, monophasic LEFT LE. The left ankle-brachial index is: 1.52 * >0.97-1.25 = normal - no significant arterial disease * 0.75-0.96 = mild peripheral arterial disease * 0.5-0.74 = moderate peripheral arterial disease * <0.50 = severe peripheral arterial disease 2. Left ankle pressure: Abnormal 3. Left ankle PVR waveform: Abnormal 4. Left direct duplex Doppler findings: Common femoral artery: 170 cm/s, Multiphasic Profunda femoris artery: 67 cm/s, Multiphasic Superficial femoral artery (proximal): Occluded Superficial femoral artery (mid): 13 cm/s, monophasic Superficial femoral artery (distal): 40 cm/s, monophasic Proximal Popliteal artery: 42 cm/s, monophasic There are multiple left thigh arterial collaterals. US/US arterial duplex LE BI IMPRESSION: RIGHT LEG: Elevated KELSEY suggesting calcified vessels. Abnormal ankle pressure and PVR. LEFT LEG: Severe peripheral arterial disease with occlusion of the proximal left superficial femoral artery and monophasic flow throughout the left lower extremity.
== END 2023-02-04 14:01 | disposition home or self-care (01) ==
LOC: HO.US 14:00
PROVIDERS: PCP Internal Medicine; Visit Provider Internal Medicine
DX: I73.9 Peripheral vascular disease, unspecified (principal)
CPT/HCPCS: 93923; 93925

== ENCOUNTER 2023-03-01 12:34 | Outpatient (AMB) | payer MEDICARE, MEDICAID, SELFPAY ==
--- NOTE | 2023-03-01 12:47 | A.SPINEOV_ITS ---
Intake Intake Visit Reasons: Chronic midline low back pain Intake Note: Mr. Nichole is here today c/o low back pain. MRI done @ [facility]/brought disc. Manager Review Required: No Allergies No Known Allergies [No Known Allergies*] Allergy (Verified 10/26/22 10:04) Assessment & Plan Assessment & Plan (1) Back pain: Code(s): M54.9 - Dorsalgia, unspecified Plan Dear Dr Fermin, Thank you for referring Mr Nichole to our office today. He is a 68-year-old gentleman who has a history of 3 previous lumbar decompression surgeries done by Dr. An , the last being in 2020. He states that he did okay after each 1 of those surgeries, but at sometime over the last year he has developed a severely progressive low back pain radiating down into his right buttock, right lateral thigh and into the top of his foot. He is very clear that he has severe chronic low back pain with now the superimposed right leg pain. It gets worse if he stands and walks and better if he sits down. If he bends forward flexes, the pain will get significantly worse. He likes to golf in the summer send has not been able to do that this year. He tried to swing a club once but it gave him severe radiculopathy. He has recently had cortisone injections at the [facility] pain management. Those do tend to dull the pain for a few weeks. He has been through physical therapy, he takes Tylenol, gabapentin and tramadol. He spoke with Dr. An who told him that after 3 surgeries he was not going to do any more operations on him. He came to see us as a 2nd opinion. PMH: He had a right upper lung nodule removed and partial lobectomy in 2021 at [facility], which they thought might be cancerous but his pathology came back consistent with consistent with COPD and interstitial fibrosis. Since that time he does get shortness of breath from time to time. He has a history of coronary disease, SVT he had a stent placed in 2020. Currently denies any chest pain. History of hypertension, high cholesterol, he had 1 of his eyes removed years ago, thyroidectomy. He denies any kidney problems, bleeding disorders, blood clots. Social hx: He quit smoking a while back, he does have a few cocktails a day but denies any history of alcohol dependence or abuse, he does have marijuana gummies daily to help with his pain. Medications: Albuterol, amlodipine, atorvastatin, Zetia, famotidine, fluticasone inhaler, gabapentin, lisinopril, metoprolol, naproxen, omega-3, oxycodone, pramipexole, Ranexa, tramadol Allergies: Denies any drug allergies Physical exam: He is awake alert oriented no acute distress, he has full strength of bilateral upper lower extremities, he has brisk reflexes in the upper extremities and a questionable Niall sign is right right hand. Imaging review: He has a cervical MRI from 2020 done at [facility] showing some borderline cervical stenosis in the mid cervical regions, he also has lumbar MRI done at [facility] in 2021 showing significant postsurgical changes from L3-S1, he has a retrolisthesis at L3-4, severe disc collapse at L4-5, severe disc collapse at L5-S1 with slight spondylolisthesis and severe facet arthropathy. He has severe foraminal stenosis on the right at L5. He has moderate stenosis on the right at L4. Impression: 68-year-old gentleman history of 3 previous lumbar decompressions done by Dr. An, the last 1 being 2020 at [facility], presents to the office today for evaluation severe chronic low back pain and severe right leg pain wh ich gets aggravated with standing walking and better when he sits down. It does not completely go away when he sits however but it is severely aggravated with activity. At this point his quality of life is suffering significantly. He has tried all the usual conservative treatments. The cortisone injections do help to a degree. He has a severely collapsed disc at L3-4 with retrolisthesis, neil rely collapsed disc at L4-5 and L5-S1 with foraminal stenosis on the right side. Typically in these situations, Dr. Hendrickson would do spinal fusion at all the affected segments. This would include most likely anterior/oblique lumbar interbody fusion. We did briefly discuss this approach as well as the risks, benefits and recovery. Because his MRI is 1-year-old I would like to get an updated lumbar MRI with without gadolinium and standing x-rays. Secondly, because of his history of neck pain and some borderline hyperreflexia with what I believed to be is a Niall sign in his right hand, I will get cervical MRI to rule out compressive myelopathy. We will see him back after these studies are ordered. Thank you for allowing us to care for your patient. The total time spent with this visit with this patient was 65 minutes reviewing history, physical exam, lumbar and cervical imaging review, and implementation of treatment plan or further diagnostic testing Enzo Hendrickson MD,PhD [facility] Orders: Orders XR lumbar spine 4V min Today M54.9 - Dorsalgia, unspecified MR cervical spine wo con Today M54.2 - Cervicalgia MR lumbar spine wo/w con Today M54.16 - Radiculopathy, lumbar region Coding Level of Care Code New Pt Level 5 (37319) Diagnoses Back pain M54.9
== END 2023-03-01 14:50 | disposition home or self-care (01) ==
PROVIDERS: PCP Internal Medicine; Referring Provider Internal Medicine; Visit Provider Physician Assistant
DX: M54.9 Dorsalgia, unspecified (principal)
CPT/HCPCS: 99205

== ENCOUNTER 2023-03-01 12:34 | Outpatient (REF) | payer MEDICARE, MEDICAID, SELFPAY ==
--- NOTE | ~2023-03-01 | XR_ITS ---
EXAMINATION: XR LUMBOSACRAL SPINE CLINICAL INFORMATION: Reason for Exam M54.9 - Dorsalgia, unspecified COMPARISON: Lumbar spine radiographs 08/12/2019 TECHNIQUE: 4 views of the lumbar spine FINDINGS: 5 nonrib-bearing lumbar-type vertebral bodies. Vertebral body heights are maintained. Levoconvex curvature of the lumbar spine. Grade 1 retrolisthesis of L2 on L3 and L3 on L4 unchanged in flexion and extension views. 8 mm of anterolisthesis of L5 on S1 in flexion measuring 1.1 cm in extension. Moderate multilevel degenerative disc disease with loss of disc space height and advanced lower lumbosacral facet arthropathy progressed from prior. Atherosclerotic calcifications of the abdominal aorta. XR/XR lumbar spine 4V min IMPRESSION: 1. Levoconvex curvature of the lumbar spine. 2. Grade 1 retrolisthesis of L2 on L3 and L3 on L4 unchanged in flexion and extension views. 8 mm of anterolisthesis of L5 on S1 in flexion measuring 1.1 cm in extension. 3. Moderate multilevel degenerative disc disease with loss of disc space height and advanced lower lumbosacral facet arthropathy progressed from prior.
== END 2023-03-01 12:35 | disposition home or self-care (01) ==
LOC: HO.HOSX 12:34
PROVIDERS: PCP Internal Medicine; Referring Provider Internal Medicine; Visit Provider Physician Assistant
DX: M54.9 Dorsalgia, unspecified (principal); M54.16 Radiculopathy, lumbar region
CPT/HCPCS: 72110; 99202

== ENCOUNTER 2023-03-09 10:20 | Outpatient (AMB) | payer MEDICARE, MEDICAID, SELFPAY ==
--- NOTE | 2023-03-09 10:28 | A.OFFVIS_ITS ---
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 He states he is unable to walk much anymore and even when he is sitting he feels the pain. 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 He reports that he can walk about a block before he starts to have cramping of the legs. It is more towards the calf left more so than right. He now presents for Evaluation. He did report that he quit smoking nearly 15 years prior. He has had a prior left lobe lobectomy. In addition he has undergone cardiac catheterization with stenting for an inferior STEMI. He now presents for vascular evaluation [facility] Medical History Alcohol dependence Post laminectomy syndrome Asthma Renal stones XAVIER (obstructive sleep apnea) COPD (chronic obstructive pulmonary disease) Anemia Hepatitis C Hyperlipidemia HTN (hypertension) SVT (supraventricular tachycardia) CAD (coronary artery disease) Surgical History S/P lobectomy of lung (~05/2021) Stented coronary artery Hx of thyroidectomy History of back surgery Hx of cardiac cath Family History Father Cancer Mother CVD (cardiovascular disease) Social History Alcohol intake: current Alcohol intake frequency: 3 or more drinks per day Alc ohol type: hard liquor Patient Tobacco Use Status: Current everyday Tobacco user Tobacco use type: Cigarette Cigarette Packs Per Day: 1 Substance Use Type: Marijuana Review of Systems Const All systems reviewed & are unremarkable except as noted in HPI and below Reports no additional complaints ENT Reports Normal hearing present Card Denies chest pain, Denies chest pain at rest, Denies chest pain with activity and Denies pedal edema Resp Denies cough GI Denies abdominal pain Musc Denies abnormal gait, Denies muscle cramps and Denies radiating pain into limb Skin/Breast Denies skin ulcer and Denies wounds Neuro Reports Normal hearing present and Denies abnormal gait Psych Reports no additional complaints Physical Exam Vital Signs: BMI result Body Mass Index 32.3 Const General: cooperative, healthy appearing and comfortable Orientation/consciousness: oriented to person, oriented to place and oriented to time HEENT Head: Yes normal to inspection Neck Neck: Yes normal visual inspection Carotids: no bruits Chest Chest palpation & inspection: normal inspection of the chest Resp Effort & Inspection: normal respiratory effort and able to speak in complete sentences Auscultation: clear to auscultation bilaterally, no crackles, no rales, no rhonchi and no wheezes Cardio Other: bilateral DP signals Rate: regular rate Rhythm: regular rhythm Heart sounds: S1 normal heart sound present and S2 normal heart sound present Bruits: no carotid bruits GI Inspection: Yes normal to inspection Skin Wounds: no wounds Hair: normal Neuro General: oriented to person, oriented to place and oriented to time Cranial nerves: Yes CN's II-XII intact bilaterally and Yes Normal hearing present Cognition (Neuro): normal cognition Motor exam (neuro): 5/5 motor strength present throughout Extrem Other: venous exam: No significant superficial varicosities or spider telangiectasias, minimal edema General: No clubbing, No cyanosis and No edema Psych Appearance: grossly normal Mental Status: mental status grossly normal Speech and movement: Normal speech and movement present Results Reviewed Results Reviewed: noninvasive testing dated 02 04 2023 demonstrates KELSEY on the right of 1.53 and on the left of 1.52. These are artifactually elevated and on direct ultrasound it demonstrates SFA occlusions. Written report and images were reviewed. Assessment & Plan Assessment & Plan (1) PAD (peripheral artery disease): Code(s): I73.9 - Peripheral vascular disease, unspecified Plan: Patient notes leg pain when walking distances. I have discussed the pathophysiology of peripheral vascular disease with the patient. I have also discussed risk factor modification. I have reviewed the patient's arterial testing which reveals left SFA disease. the patient would benefit from a left leg endovascular peripheral angiogram with possible angioplasty, stent, and/or atherectomy. This has been discussed in detail with the patient along with risks, benefits, and complications. This includes but is not limited to bleeding, infection, heart attack, need for emergent surgical repair, limb ischemia, blood vessel damage, bleeding, puncture, kidney injury, bruising, allergic reaction, and skin reaction. The patient demonstrates a clear understanding. We will schedule for the next appropriate time. Thank you for allowing us to assist in this patient's care. Coding Level of Care Code New Pt Level 4 (93487) Diagnoses PAD (peripheral artery disease) I73.9
[2023-03-09 10:31] VITALS: BMI 32.3
== END 2023-03-09 10:59 | disposition home or self-care (01) ==
PROVIDERS: PCP Internal Medicine; Visit Provider Surgery Vascular Surgery
DX: I73.9 Peripheral vascular disease, unspecified (principal)
CPT/HCPCS: 99204

== ENCOUNTER → 2023-03-09 10:20 | Outpatient (BNVA) | payer MEDICARE, MEDICAID, SELFPAY | PROVIDERS: PCP Internal Medicine; Visit Provider Surgery Vascular Surgery | DX: I73.9 Peripheral vascular disease, unspecified (principal) | CPT/HCPCS: 99202 ==

== ENCOUNTER 2023-03-17 05:45 | Day surgery (SDC) | payer MEDICARE, MEDICAID, SELFPAY ==
[2023-03-17] VITALS (11 sets, daily range): BP systolic 121–148; BP diastolic 71–89; PULSE 66–90; RESP 16; TEMP 36.4–36.9; O2SAT 95–98; BMI 32.7
--- OUTSIDE RECORDS SUMMARY | 2023-03-17 05:51 | XMS_ITS | Patient Health Record ---
Author Name Unknown Organization [facility] Address [address] [place] [address] Care Team Providers Care Hot Room Attendant Name Role Phone Kojo Fermin MD Primary Care Provider Radha De La Torre Jr Unavailable Kenny Funez Unavailable [phone] ALLERGIES No Known Allergies RESULTS Component Value Reference Range Notes Alpha Fetoprotein Reviewed date:04/07/2022 01:35:35 PM Interpretation: Performing Lab:[address] [address] Notes/Report: Alpha Fetoprotein 6.8 <6.1 ng/mL This test was performed using the Sheri Goldonna chemiluminescent method. Values obtained from different assay methods cannot be used interchangeably. AFP levels, regardless of value, should not be interpreted as absolute evidence of the presence or absence of disease. THIS TEST WAS PERFORMED AT: [facility] [address] ([address] [address] MANUEL BELTRÁN MD Complete Blood Count no Diff Reviewed date:04/07/2022 01:34:55 PM Interpretation: Performing Lab:[address] [address] Notes/Report: White Blood Count 7.8 4.8-10.8 X10*3/uL Red Blood Count 3.76 4.60-5.80 X10*6/uL Hemoglobin 12.6 14.0-18.0 g/dl Hematocrit 36.4 42.0-52.0 % Mean Corpuscular Volume 96.8 80.0-98.0 fL Mean Corpuscular Hemoglobin 33.5 27.0-33.0 pg Mean Corpuscular HGB Conc 34.6 31.0-36.0 g/dl Red Cell Distribution Width 12.9 11.0-16.0 % Platelet Count 173 160-400 X10*3/uL Mean Platelet Volume 9.6 9.4-12.4 fL NRBC Pct Auto 0.0 0.0-0.2 /100WBC NRBC Abs Auto 0.000 0.0-0.012 X10*3/uL Prothrombin Time INR Reviewed date:04/07/2022 01:34:50 PM Interpretation: Performing Lab:[address] [address] Notes/Report: Prothrombin Time 11.0 10.0-13.1 SEC INTERNATIONAL NORM RATIO 1.0 0.9-1.1 INTERNATIONAL NORMALIZED RATIO (INR) REFERENCE RANGES Reference Range For patients not on anticoagulant therapy: 0.9 - 1.1 INR ranges for oral anticoagulant therapy: For prevention and treatment of venous thrombosis and pulmonary embolism: 2.0 - 3.0 For acute myocardial infarction with aspirin therapy: 2.0 - 3.0 For acute myocardial infarction without aspirin therapy: 3.0 - 4.0 For patients with mechanical prosthetic heart valves: 2.5 - 3.5 Liver Panel Reviewed date:04/07/2022 01:35:14 PM Interpretation: Performing Lab:[address] [phone] Notes/Report: Bilirubin Total 0.6 0.0-1.0 mg/dL Bilirubin Direct 0.2 0.0-0.5 mg/dL Aspartate Amino Transferase 38 5-37 U/L Alanine Aminotransferase 50 0-40 U/L Total Protein 7.1 6.5-8.0 g/dL Albumin Level 4.2 3.5-5.0 g/dL Alkaline Phosphatase 106 39-117 U/L Blood Urea Nitrogen Reviewed date:04/07/2022 01:35:06 PM Interpretation: Performing Lab:[address] [address] Notes/Report: Blood Urea Nitrogen 20 9-16 mg/dL Creatinine Reviewed date:04/07/2022 01:35:00 PM Interpretation: Performing Lab:[address] [address] Notes/Report: Creatinine 1.15 0.5-1.4 mg/dL Estimated Glomerular Filt Rate > 60 NOTE: For -[place] individuals, multiply the result by 1.210. Chronic Kidney Disease: Estimated GFR < 60 mL/min/1.73m2 Severe Kidney Disease: Estimated GFR < 15 mL/min/1.73m2 MR abdomen wo/w con Reviewed date:04/07/2022 01:34:39 PM Interpretation: Performing Lab: Notes/Report: [address] [address] Magnetic Resonance Report Signed with Addenda Patient: Shane Sim MR#: [id number] : 1955 Acct:[id number] Age/Sex: 67 / M ADM Date: 04/06/22 Loc: HO.MRI Attending Dr: Radha Kerr Ordering Physician: RADHA KERR MD Date of Service: 04/06/22 Procedure(s): MR abdomen wo/w con Accession Number(s): [id number] cc: RADHA KERR MD ADDENDUM Addendum: In addition to the findings described above, there are 2 tiny cysts in the pancreas, 2-3 mm. These can be reassessed at the same time as follow-up for the Bosniak 2F renal cyst. Consider obtaining MRCP images at the time of future MRI follow-up. Addendum Dictated By: Dale Cervantes MD Addendum Signed By: <Electronically signed by Dale Cervantes MD in OV> 04/07/22 1223 Addendum Cosigned By: DD/ TD/TT: / EXAMINATION: MR ABDOMEN WITHOUT AND WITH CONTRAST CLINICAL INFORMATION: Follow-up liver lesion COMPARISON: Outside MRI 01/23/2020. MRI abdomen 06/05/2019 TECHNIQUE: MR abdomen was performed without and with use of 10 mL intravenous Gadavist gadolinium contrast. Postcontrast images are performed in multiphase dynamic sequences. Imaging was performed in 3 planes. FINDINGS: LUNG BASES: The visualized lung bases are unremarkable. LIVER, GALLBLADDER, AND BILIARY TREE: The liver is normal in size, smooth in contour, and normal in signal. Numerous well-circumscribed T2 hyperintense simple hepatic cysts are present. In addition, along the anterior margin of the left lobe of liver, segment 3 there is a well-circumscribed 2.7 x 2.0 cm lesion with intermediate bright T2 signal and hypointense T1 signal precontrast. This may be subtly hyperenhancing relative to adjacent liver on arterial phase images and becomes isoenhancing on later sequences. It is not convincingly changed in size from the prior MRI 06/05/2019. The gallbladder is unremarkable with no evidence of gallbladder wall thickening, or obvious pericholecystic inflammatory changes. PANCREAS: There are a few tiny cysts or ectatic sidebranches of the pancreas measuring 2-3 mm, for example coronal series 3 image 19/37 in the body of the pancreas and on image 18/37 and the tail of the pancreas. These do not definitely communicate with the pancreatic duct. SPLEEN: Normal. ADRENAL GLANDS: Normal. KIDNEYS AND URETERS: Numerous well-circumscribed homogeneous hyperintense T2, nonenhancing simple cysts are present. In addition, there are several small homogeneous T1 bright proteinaceous or hemorrhagic cysts, for example in the left kidney on series 8 images 71, 82, and 89. However, there is one heterogeneous cyst measuring 1.8 cm in the lateral cortex of the right mid kidney image 87/120. This has nodular bright T1 signal precontrast, 3 to 4 mm in diameter, with bright T2 signal and no enhancement elsewhere. Given the heterogeneity this would be considered a Bosniak 2F cyst. GASTROINTESTINAL TRACT: No bowel obstruction. No ascites or fluid collection. ABDOMINAL WALL: No significant hernia is appreciated. LYMPH NODES: No lymphadenopathy. VASCULAR: Unremarkable. OSSEOUS STRUCTURES: Degenerative changes. No acute or suspicious focal abnormality.. MR/MR abdomen wo/w con IMPRESSION: In addition to multiple hepatic cysts, the 2.7 cm index lesion along the anterior cortex of the left lobe of the liver is not convincingly changed from prior MRI in 2020. The lack of interval change is reassuring of an underlying benign etiology. The MRI and signal characteristics remain most consistent with focal nodular hyperplasia (there was retained Eovist contrast on 20 minute delayed images of the MRI 06/05/2019 consistent with a lesion of hepatocyte origin). In addition to simple and proteinaceous/hemorrhagic Bosniak 1 and 2 renal cysts, there is a 1.8 cm Bosniak 2F cyst in the right mid kidney. The heterogeneity seen on the current exam was not seen on the prior study in 2019. The large majority of Bosniak IIF masses are benign. When malignant, nearly all are indolent. Generally, Bosniak IIF masses are followed by imaging at 6 months and 12 months, then annually for a total of 5 years to assess for morphologic change. Dictated By: Dale Cervantes MD Signed By: <Electronically signed by Dale Cervantes MD in OV> 04/07/22 1211 DD/ TD/TT: Machine I Trimmer: DORETHA Pathology Reviewed date:05/04/2022 08:20:40 AM Interpretation: Performing Lab:[facility], [address] [place] [phone] Notes/Report: Complete Blood Count Auto Di ff Reviewed date:10/26/2022 03:44:53 PM Interpretation: Performing Lab:[facility], [address] [place] [phone] Notes/Report: White Blood Count 8.9 4.8-10.8 X10*3/uL Red Blood Count 3.79 4.60-5.80 X10*6/uL Hemoglobin 12.7 14.0-18.0 g/dl Hematocrit 36.9 42.0-52.0 % Mean Corpuscular Volume 97.4 80.0-98.0 fL Mean Corpuscular Hemoglobin 33.5 27.0-33.0 pg Mean Corpuscular HGB Conc 34.4 31.0-36.0 g/dl Red Cell Distribution Width 13.4 11.0-16.0 % Platelet Count 171 160-400 X10*3/uL Mean Platelet Volume 9.6 9.4-12.4 fL Neutrophils Percent Auto 64.7 45-73 % Imm Gran Pct Auto 1.2 0.0-0.4 % Lymphocytes Percent Auto 19.8 20-40 % Monocytes Percent Auto 12.0 2-11 % Eosinophils Percent Auto 1.4 0-4 % Basophils Percent Auto 0.9 0-2 % NRBC Pct Auto 0.0 0.0-0.2 /100WBC Neutrophils Absolute Auto 5.7 2.0-8.3 x10*3/u L Imm Gran Abs Auto 0.11 0.00-0.03 X10*3/uL Lymphocytes Absolute Auto 1.8 1.2-4.9 X10*3/u L Monocytes Absolute Auto 1.1 0.1-1.2 X10*3/uL Eosinophils Absolute Auto 0.1 0.0-0.4 X10*3/u L Basophils Absolute Auto 0.1 0.0-0.2 X10*3/uL NRBC Abs Auto 0.000 0.0-0.012 X10*3/uL Prothrombin Time INR Reviewed date:10/26/2022 03:42:58 PM Interpretation: Performing Lab:[address] [phone] Notes/Report: Prothrombin Time 11.4 11.1-13.3 SEC INTERNATIONAL NORM RATIO 0.9 0.9-1.1 INTERNATIONAL NORMALIZED RATIO (INR) REFERENCE RANGES Reference Range For patients not on anticoagulant therapy: 0.9 - 1.1 INR ranges for oral anticoagulant therapy: For prevention and treatment of venous thrombosis and pulmonary embolism: 2.0 - 3.0 For acute myocardial infarction with aspirin therapy: 2.0 - 3.0 For acute myocardial infarction without aspirin therapy: 3.0 - 4.0 For patients with mechanical prosthetic heart valves: 2.5 - 3.5 Liver Panel Reviewed date:10/26/2022 03:43:11 PM Interpretation: Performing Lab:[address] [address] Notes/Report: Bilirubin Total 0.7 0.0-1.0 mg/dL Bilirubin Direct 0.2 0.0-0.5 mg/dL Aspartate Amino Transferase 35 5-37 U/L Alanine Aminotransferase 42 0-40 U/L Total Protein 7.3 6.5-8.0 g/dL Albumin Level 4.2 3.5-5.0 g/dL Alkaline Phosphatase 94 39-117 U/L Pathology Reviewed date:11/18/2022 08:50:20 AM Interpretation: Performing Lab:[address] [address] Notes/Report: REASON FOR REFERRAL No Information MEDICATIONS Medication SIG (Take, Route, Frequency, Duration) Notes Start Date End Date Status Gabapentin 600 MG as directed Orally tid Active Lisinopril 40 MG 1 tablet Oral Once a day Active amLODIPine Besylate 10 MG 1 tablet Orall y Once a day Active Famotidine 40 MG 1 tablet Oral Twice a day for 90 days Active Incruse Ellipta 62.5 MCG/INH 1 puff Inha lation Once a day Active Pramipexole Dihydrochloride 0.125 MG 2 tablet Orally Once a day Active Aspirin 81 MG 1 tablet Orally Once a day Active Metoprolol Tartrate 50 MG 1 tablet with food Oral Twice a day Active Ranolazine ER 500 MG 1 tablet Orally Twi ce a day for 30 day(s) Active Vitamin B12 500 as directed Orally O nce a day Active Puryear 3 1000 MG 1 capsule Orally Onc e a day for 30 day(s) Active Atorvastatin Calcium 40 MG 1 tablet Oral ly Once a day for 30 day(s) Active IMMUNIZATIONS Vaccine Route Administration Date Status Comme nts Influenza Unknown 12/27/2018 Administered Influenza Unknown 12/21/2018 Administered Influenza Unknown 01/06/2022 Administered SOCIAL HISTORY Tobacco Use: Social History Observation Description Date Details (start date - stop date) Former Smoker NA - NA Sex Assigned At : Social History Observation Description Sex Assigned At Unknown Tobacco Use/Smoking Question Answer Notes Patient is a former smoker When did you stop smoking? 2006 How long has it been since you last smoked? > 10 years Alcohol Screen Question Answer Notes Did you have a drink contain ing alcohol in the past year? Yes How often did you have a dri nk containing alcohol in the past year? 4 or more times a week (4 points) How many drinks did you have on a typical day when you were drinking in the past year? 3 or 4 drinks (1 point) How often did you have 6 or more drinks on one occasion in the past year? 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) Active confirmed 7435618557277563 Problem Abnormal ultrasound of liver (R93.2) Active confirmed 16827597368583267 Problem Abnormal MRI, liver (R93.2) Active confirmed 697305419 Problem Focal nodular hyperplasia of liver (K76.89) Active confirmed 160883943 Problem Elevated liver function tests (R94.5) Active confirmed 811414532 Encounters Encounter Location Date Provider Diagnosis [facility] [facility] [address] [place] [id number] 11/11/2022 Radha Kerr Jr Cedeno's esophagus with dysplasia K22.719 [facility] [place] [facility] [address] [place] [id number] 04/15/2022 Radha Kerr Jr Encounter for screening colonoscopy Z12.11 ; Colon polyps K63.5 and Other cirrhosis of liver K74.69 [facility] [address] [place] [id number] 03/30/2022 Radha Kerr Jr Abnormal MRI, liver R93.2 ; Other cirrhosis of liver K74.69 and Colon cancer screening Z12.11 [facility] [address] [place] [id number] 09/29/2022 Kenny Funez [facility] [address] [place] [phone] 12/02/2022 Radha Kerr Jr Cedeno's esophagus with dysplasia K22.719 [facility] [address] [place] [id number] 04/07/2022 Radha Kerr Jr [facility] [address] [place] [phone] 04/23/2022 Radha Kerr Jr Cedeno's esophagus with dysplasia K22.719 [facility] [address] [place] [phone] 05/20/2022 Radha Kerr Jr [facility] [address] [place] [phone] 10/26/2022 Radha Kerr Jr [facility] [address] [place] [id number] 11/18/2022 Radha Kerr Jr ASSESSMENTS Encounter Date Diagnosis Assessment Notes Treatment Notes Treatment Clinical Notes 04/23/2022 Cedeno's esophagus with dysplasia (ICD-10 - K22.719) 11/11/2022 Cedeno's esophagus with dysplasia (ICD-10 - K22.719) 04/15/2022 Encounter for screening colonoscopy (ICD-10 - Z12.11) 04/15/2022 Colon polyps (ICD-10 - K63.5) 03/30/2022 Other cirrhosis of liver (ICD-10 - K74.69) 03/30/2022 Abnormal MRI, liver (ICD-10 - R93.2) 12/02/2022 Cedeno's esophagus with dysplasia (ICD-10 - K22.719) Cedeno esophagus material was printed 04/15/2022 Other cirrhosis of liver (ICD-10 - K74.69) 03/30/2022 Colon cancer screening (ICD-10 - Z12.11) Colonoscopy material was printed PLAN OF TREATMENT Pending Test Test Name Order Date BUN 05/26/2019 BUN 01/26/2020 BUN 03/30/2022 CREATININE 03/30/2022 CREATININE 05/26/2019 CREATININE 01/26/2020 LIVER PROFILE 03/30/2022 LIVER PROFILE 04/23/2022 LIVER PROFILE 04/16/2019 LIVER PROFILE 01/26/2020 LIVER PROFILE 03/29/2019 CBC w/o DIFF 03/30/2022 CBC w/o DIFF 04/23/2022 CBC w/o DIFF 04/16/2019 CBC w/o DIFF 03/29/2019 PROTHROMBIN TIME (PT, INR) 03/30/2022 PROTHROMBIN TIME (PT, INR) 04/23/2022 HEPATITIS A ANTIBODY-IGM 03/29/2019 HEPATITIS B SURFACE ANTIGEN 03/29/2019 HEPATITIS B SURFACE ANTIBODY 03/29/2019 HEPATITIS C VIRAL LOAD 03/29/2019 HEPATITIS C VIRAL LOAD 04/16/2019 HEPATITIS C GENOTYPE 03/29/2019 MRI ABD W&WO CONTRAST 05/26/2019 MRI ABD W&WO CONTRAST 01/26/2020 MRI ABD W&WO CONTRAST 03/30/2022 MRI ABD W&WO CONTRAST 01/18/2020 US ABD 06/07/2019 US ABD 09/20/2019 HEPATITIS B CORE ANTIBODY 03/29/2019 HEPATITIS A ANTIBODY-IGG 03/29/2019 HCV LIVER FIBROSIS, FIBRO TEST 0 Future Test Test Name Order Date COLONOSCOPY 08/15/2014 COLONOSCOPY 09/14/2018 UPPER GI ENDOSCOPY 03/30/2022 COLONOSCOPY 03/30/2022 UPPER GI ENDOSCOPY 04/23/2022 Next Appt Details Provider Name:Radha Maya Deucerj velezd , 12/01/2023 10:00:00 AM, [address], [address], [place], [address], Insurance Providers Payer Name Payer Address Payer Phone Subscriber Number Group Number Insured Name Patient Relationship to Insured Coverage Start Date Coverage End Date [place] [address] [place] [address] [id number] SHANE SIM Self - patient is the insured [place] [address] [place] [address] [id number] SHANE SIM Self - patient is the insured MEDICAL (GENERAL) HISTORY Medical History History ICD Code Colon polyps, colonoscopy 04/13, multiple adenomas, three-year followup hepatitis C, F4 fibrosis, status post Pastrana rvoni x12 weeks with SVR hypertension depression back pain elevated cholesterol coronary artery disease, [place] 12/2017, ross nt placement leg numbness. anemia COPD XAVIER/CPAP kidney stones Cedeno's esophagus, EGD 03/23 3, indefinite to low-grade dysplasia, followup EGD 11/11, and no dysplasia on biopsy or WATS, 2 year followup Surgical History Surgery Date(Month/Year) eye surgery, left eye blindness thyroid surgery Coronary artery stent placement 12/2017 back surgery 2017 Hospitalization History Reason Date(Month/Year) Right upper lobectomy 05/2021
[2023-03-17 06:36] LABS: MANUAL DIFF FLAG NO
[2023-03-17 06:37] LABS: Basophils Absolute Auto 0.1 X10*3/uL (0.0-0.2); Basophils Percent Auto 0.6 % (0-2); Eosinophils Absolute Auto 0.1 X10*3/uL (0.0-0.4); Eosinophils Percent Auto 0.9 % (0-4); Hematocrit 34.6 % (42.0-52.0); Hemoglobin 11.7 g/dl (14.0-18.0); Imm Gran Abs Auto 0.27 X10*3/uL (0.00-0.03); Imm Gran Pct Auto 3.2 % (0.0-0.4); Lymphocytes Absolute Auto 1.4 X10*3/uL (1.2-4.9); Lymphocytes Percent Auto 16.6 % (20-40); Mean Corpuscular HGB Conc 33.8 g/dl (31.0-36.0); Mean Corpuscular Hemoglobin 32.1 pg (27.0-33.0); Mean Corpuscular Volume 94.8 fL (80.0-98.0); Mean Platelet Volume 8.6 fL (9.4-12.4); Monocytes Percent Auto 11.6 % (2-11); Neutrophils Absolute Auto 5.8 x10*3/uL (2.0-8.3); Neutrophils Percent Auto 67.1 % (45-73); Platelet Count 142 X10*3/uL (160-400); Red Blood Count 3.65 X10*6/uL (4.60-5.80); Red Cell Distribution Width 13.6 % (11.0-16.0); White Blood Count 8.6 X10*3/uL (4.8-10.8)
[2023-03-17 06:47] LABS: Blood Urea Nitrogen 27 mg/dL (9-16); Creatinine Clr Calc Pharmacy 63.1; Estimated Glomerular Filt Rate 50
--- NOTE | 2023-03-17 08:47 | P.OP_ITS ---
Operative Note Operative Note Date of Service: 03/17/23 Narrative: Angiogram report from [facility] Preoperative diagnosis: Atherosclerosis of Left lower extremity with activity limiting claudication Postoperative diagnosis: Same Procedure: 1. Ultrasound-guided right common femoral access 2. Aortogram with bilateral lower extremity runoff Surgeon:Andre Lira M.D., FACS, RPVI Seamless Tube Roller:None Anesthesia: Local with moderate conscious sedation. Total intraservice moderate sedation time was 33 minutes. I monitored the patient's level of consciousness and physiologic status continuously throughout the procedure. Specimens:none Drains:none Estimated blood loss: Less than 10 ml Implant: none Indications: pleasant 68-year-old gentleman with severe activity limiting claudication. He now presents for left lower extremity endovascular. There was concern of SFA disease on noninvasive testing. The patient has signed the informed consent after reviewing risks, complications, benefits, and alternatives previously discussed with the patient. The patient was given the opportunity to ask any additional questions or voice any concerns. All questions were answered to the patient's satisfaction. Procedure in detail: Patient was brought to the angiography suite prior to which a time-out was called for patient identification and site verification. Bilateral groins were prepped and draped in the standard surgical fashion. Under ultrasound guidance Right common femoral was punctured with micro puncture needle and wire. Subsequently a precision 4 Azerbaijani sheath was then placed. Bentson wire was advanced to the level of the aorta. 4 Azerbaijani Flush catheter was brought up and parked at the level of the renal arteries. Aortogram was then undertaken. Catheter was brought down to the level of the iliac bifurcation. Iliacs were subsequently imaged. Catheter was then brought in up and over to the left side common femoral. Runoff study was then undertaken. the proximal 3rd of the SFA was completely occluded. There was no way to traverse this. Multiple orthogonal views were undertaken. We removed catheter. Through the sheath we then performed right lower extremity runoff. Once this was accomplished sheath was removed direct pressure was held for 10 minutes patient tolerated the procedure well Interpretation of films: 1. Ultrasound demonstrates appropriate femoral puncture. Image of which was saved. 2. Aortogram demonstrates appropriate caliber aorta. Minimal disease. Appropriate take-off of the renals. 3. Iliac images demonstrate no significant disease. There was some mild disease on the right external iliac. 4. Left Leg Common femoral artery: significant disease at the origin of the SFA at the common femoral Profundus Femoris: No significant disease Superficial femoral artery: proximal 3rd totally occluded reconstitutes just below that Popliteal artery (p1,p2,p3): no significant disease Anterior tibial artery: dominant runoff Peroneal artery: no significant disease but diminutive Posterior tibial artery: patent and dominant runoff Dorsalis pedis/plantar arch: incomplete 5. Right Leg Common femoral artery: moderate disease at the common femoral Profundus Femoris: No significant disease Superficial femoral artery: patent to the popliteal Popliteal artery (p1,p2,p3): high-grade stenosis at the popliteal very calcified. There appears to be a total occlusion at the P2 segment because it fills by collaterals 1st. Anterior tibial artery: No significant disease Peroneal artery: no significant disease but diminutive Posterior tibial artery: no significant disease Dorsalis pedis/plantar arch: incomplete Conclusion: 1. successful diagnostic angiogram. No intervention performed. Will require left side fem-pop bypass above knee. 2. Anticoagulation status: No change This note is constructed using voice recognition software. While every effort has been made to ensure accuracy, motor builder winder errors may have been included. Thank you for allowing me to participate in the care of your patient. Yours sincerely, Andre Lira MD, FACS, R.P.V.I.
== END 2023-03-17 13:15 | disposition home or self-care (01) ==
PROVIDERS: PCP Internal Medicine; Visit Provider Surgery Vascular Surgery
DX: I70.212 Atherosclerosis of native arteries of extremities with intermittent claudication, left leg (principal); R26.2 Difficulty in walking, not elsewhere classified; M96.1 Postlaminectomy syndrome, not elsewhere classified; I10 Essential (primary) hypertension; I25.10 Atherosclerotic heart disease of native coronary artery without angina pectoris; Z95.5 Presence of coronary angioplasty implant and graft; I47.10 Supraventricular tachycardia, unspecified; E78.5 Hyperlipidemia, unspecified; F10.20 Alcohol dependence, uncomplicated; D64.9 Anemia, unspecified; G47.33 Obstructive sleep apnea (adult) (pediatric); J44.9 Chronic obstructive pulmonary disease, unspecified; F17.210 Nicotine dependence, cigarettes, uncomplicated; B19.20 Unspecified viral hepatitis C without hepatic coma; Z98.890 Other specified postprocedural states
CPT/HCPCS: 36247; 36415; 75630; 76937; 82565; 84520; 85025; 99152; 99153; A4364; C1769; C1887; J1644; J2250; J2310; J3010; Q9967

== ENCOUNTER → 2023-03-17 05:45 | Outpatient (BNV) | payer MEDICARE, MEDICAID, SELFPAY | PROVIDERS: PCP Internal Medicine; Visit Provider Surgery Vascular Surgery | DX: I70.212 Atherosclerosis of native arteries of extremities with intermittent claudication, left leg (principal) | CPT/HCPCS: 36246; 75625; 75710; 76937; 99152 ==

== ENCOUNTER 2023-03-30 13:10 | Outpatient (AMB) | payer MEDICARE, MEDICAID, SELFPAY ==
--- NOTE | 2023-03-30 13:17 | MHC.OFFVIS ---
Intake Intake Visit Reasons: MRI follow up Intake Note: Pt here to review MRI Documentation Improvement Specialist Required: No Allergies No Known Allergies [No Known Allergies*] Allergy (Verified 03/09/23 10:31) [facility] Medical History Alcohol dependence Post laminectomy syndrome Asthma Renal stones XAVIER (obstructive sleep apnea) COPD (chronic obstructive pulmonary disease) Anemia Hepatitis C Hyperlipidemia HTN (hypertension) SVT (supraventricular tachycardia) CAD (coronary artery disease) Surgical History S/P lobectomy of lung (~05/2021) Stented coronary artery Hx of thyroidectomy History of back surgery Hx of cardiac cath Family History Father Cancer Mother CVD (cardiovascular disease) Social History Alcohol intake: current Alcohol intake frequency: a few times a week Alcohol type: hard liquor Patient Tobacco Use Status: Former Tobacco user Quit Date: quit 13 yr ago Tobacco use type: Cigarette Cigarette Packs Per Day: 1 Substance Use Type: Marijuana Assessment & Plan Assessment & Plan (1) Lumbar radiculopathy: Code(s): M54.16 - Radiculopathy, lumbar region Plan Dear colleague: On 03/30/2022, I saw for follow-up Shane Nichole to review his new MRI of the lumbar spine. As you know, he underwent multiple lumbar decompressions by . He is suffering from chronic manageable low back pain. His main complaint is a persisting severe right leg pain with numbness that interferes with his daily activities and wakes him up at night. He tried conservative management without results. For detailed history of refer to the note of Enzo Melissa of 03/01/2023. A new MRI was ordered , which was reviewed in detail with the patient today. Shows multilevel degenerative disc disease L3-4 and L4-5 and L5-S1 with a mild degenerative scoliosis but more importantly there is an increase of an L5-S1 disc herniation on the right side compressing the right L5 and S1 nerve roots. In addition, there is hyperintensity of the L5-S1 facet joints indicating instability. As stated before, the back pain is manageable but the new right sided lumbar radiculopathy is not. I decided to offer him a right L5-S1 lumbar microdiskectomy to see if we can address the right leg pain. He is aware that in the future he may need a lumbar fusion surgery which would until a three-level lumbar fusion L3-S1. He is scheduled for 06/01/2023. 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 He will also stop his aspirin 5 days prior to surgery. I spent 20 minutes in his consult to review imaging and discuss plan. Marvin Hendrickson MD, PhD Spine Fellowship Trained Neurosurgeon Director, [facility] Coding Level of Care Code Est Pt Level 3 (98391) Diagnoses Lumbar radiculopathy M54.16
== END 2023-03-30 13:47 | disposition home or self-care (01) ==
PROVIDERS: PCP Internal Medicine; Visit Provider Neurological Surgery
DX: M54.16 Radiculopathy, lumbar region (principal)
CPT/HCPCS: 99213

== ENCOUNTER → 2023-03-30 13:10 | Outpatient (BNVA) | payer MEDICARE, MEDICAID, SELFPAY | PROVIDERS: PCP Internal Medicine; Visit Provider Physician Assistant | DX: M54.16 Radiculopathy, lumbar region (principal) | CPT/HCPCS: 99212 ==

== ENCOUNTER 2023-04-01 14:39 | Outpatient (AMB) | payer MEDICARE, MEDICAID, SELFPAY ==
--- NOTE | 2023-04-01 14:50 | A.OFFVIS_ITS ---
Intake Vital Signs 04/01/23 14:51 Height 6 ft Weight 238 lb BMI 32.3 Intake Visit Reasons: 2 week Left Angio post op 03/17/2023 Intake Note: 2 week follow up Left LE Angio 03/17/23. The Angio was diagnostic, pt states not feeling any different, because no intervention was done. States bilateral LE pain but Left LE is worse and Right LE may be another issue. Accompanied by: Self / Same As Patient Allergies No Known Allergies [No Known Allergies*] Allergy (Verified 04/01/23 14:53) HPI 2 week Left Angio post op 03/17/2023 HPI Details Very pleasant 68-year-old gentleman presents for follow-up regarding activity limiting claudication. He had undergone diagnostic angiogram on 03/17/2023. It did demonstrate a total SFA occlusion. He does have severe activity limiting claudication. In addition he does have some back issues. He is currently seeing spine surgery and scheduled for lumbar microdiskectomy. [facility] Medical History Alcohol dependence Post laminectomy syndrome Asthma Renal stones XAVIER (obstructive sleep apnea) COPD (chronic obstructive pulmonary disease) Anemia Hepatitis C Hyperlipidemia HTN (hypertension) SVT (supraventricular tachycardia) CAD (coronary artery disease) Surgical History S/P lobectomy of lung (~05/2021) Stented coronary artery Hx of thyroidectomy History of back surgery Hx of cardiac cath Family History Father Cancer Mother CVD (cardiovascular disease) Social History Alcohol intake: current Alcohol intake frequency: a few times a week Alcohol type: hard liquor Patient Tobacco Use Status: Former Tobacco user Quit Date: quit 13 yr ago Tobacco use type: Cigarette Cigarette Packs Per Day: 1 Substance Use Type: Marijuana Review of Systems Const All systems reviewed & are unremarkable except as noted in HPI and below Reports no additional complaints ENT Reports Normal hearing present Card Denies chest pain, Denies chest pain at rest, Denies chest pain with activity and Denies pedal edema Resp Denies cough GI Denies abdominal pain Musc Denies abnormal gait, Denies muscle cramps and Denies radiating pain into limb Skin/Breast Denies skin ulcer and Denies wounds Neuro Reports Normal hearing present and Denies abnormal gait Psych Reports no additional complaints Physical Exam Vital Signs: BMI result Body Mass Index 32.3 Const General: cooperative, healthy appearing and comfortable Orientation/consciousness: oriented to person, oriented to place and oriented to time HEENT Head: Yes normal to inspection Neck Neck: Yes normal visual inspection Carotids: no bruits Chest Chest palpation & inspection: normal inspection of the chest Resp Effort & Inspection: normal respiratory effort and able to speak in complete sentences Auscultation: clear to auscultation bilaterally, no crackles, no rales, no rhonchi and no wheezes Cardio Other: Bilateral DP signals Rate: regular rate Rhythm: regular rhythm Heart sounds: S1 normal heart sound present and S2 normal heart sound present Bruits: no carotid bruits Peripheral pulses: Peripheral pulses 2+ throughout GI Inspection: Yes normal to inspection Skin Wounds: no wounds Hair: normal Neuro General: oriented to person, oriented to place and oriented to time Cranial nerves: Yes CN's II-XII intact bilaterally and Yes Normal hearing present Cognition (Neuro): normal cognition Motor exam (neuro): 5/5 motor strength present throughout Extrem Other: venous exam: No significant superficial varicosities or spider telangiectasias, minimal edema General: No clubbing, No cyanosis and No edema Psych Appearance: grossly normal Mental Status: mental status grossly normal Speech and movement: Normal speech and movement present Assessment & Plan Assessment & Plan (1) PAD (peripheral artery disease): Code(s): I73.9 - Peripheral vascular disease, unspecified Plan: In short patient will require left side fem-pop bypass. I do think it is prudent for him to undergo spine surgery as vascular surgery will require anticoagulation. He is scheduled for surgery on 06/01/2023. Is scheduled for cardiology and pulmonary risk stratification. This would be valid for us as well. Subsequent to the lumbar diskectomy I will perform left-sided fem-pop bypass once stable. I have scheduled him for 3 month follow-up with us. Thank you for allowing us to assist in his care. If there are any questions or concerns please do not hesitate to contact us. Coding Level of Care Code Est Pt Level 3 (06017) Diagnoses PAD (peripheral artery disease) I73.9
[2023-04-01 14:51] VITALS: BMI 32.3
== END 2023-04-01 15:23 | disposition home or self-care (01) ==
PROVIDERS: PCP Internal Medicine; Visit Provider Surgery Vascular Surgery
DX: I73.9 Peripheral vascular disease, unspecified (principal)
CPT/HCPCS: 99213

== ENCOUNTER → 2023-04-01 14:39 | Outpatient (BNVA) | payer MEDICARE, MEDICAID, SELFPAY | PROVIDERS: PCP Internal Medicine; Visit Provider Surgery Vascular Surgery | DX: I73.9 Peripheral vascular disease, unspecified (principal) | CPT/HCPCS: 99212 ==

== ENCOUNTER 2023-04-17 11:27 | Emergency (ER) | payer MEDICARE, MEDICAID, SELFPAY ==
--- NOTE | ~2023-04-17 | XR_ITS ---
EXAMINATION: XR CHEST CLINICAL INFORMATION: Chest tightness. COMPARISON: Chest radiograph 01/09/2019. TECHNIQUE: 2 views of the chest were obtained. FINDINGS: Normal appearance of the cardiomediastinal silhouette. No focal airspace opacities, pleural effusions or pneumothorax. No acute osseous findings. Visualized upper abdomen is within normal limits. XR/XR chest 2V IMPRESSION: No acute cardiopulmonary findings.
--- NOTE | 2023-04-17 11:33 | ED_ITS ---
HPI - General Adult General Chief complaint: Chest Pain Stated complaint: disoriented/ chest tightness Time Seen by Provider: 04/17/23 12:02 History of Present Illness HPI narrative: The patient is a 68-year-old male with a history of coronary disease and a history of an inferior STEMI for which he had a stenting of the right coronary artery. He also has a history of supraventricular tachycardia, hypertension, and peripheral artery disease. Patient says that at around 10:00 he began to experience chest tightness similar to his myocardial infarction. Also feels short of breath and dizzy. His last drink was last night. No vomiting. No fever, sweats, chills. The patient was found to be in atrial fibrillation today. He says that he has had 1 known episode of previous atrial fibrillation several weeks ago. Last month he had an aortogram done by Dr. Lira. Apparently postprocedure the he had an episode of atrial fibrillation. Apparently he was advised to follow up with his software engineer web applications regarding this episode of atrial fibrillation but he has not yet done so. He is on metoprolol. He has not on anticoagulation. The patient says he does not really feel a sense of palpitations or heartbeat irregularity. Related Data Home Medications Medication Instructions Recorded Confirmed famotidine 40 mg tablet 40 mg PO DAILY 04/12/20 10/22/22 gabapentin 600 mg tablet 600 mg PO TID 04/12/20 10/22/22 lisinopril 40 mg tablet 40 mg PO DAILY 04/12/20 10/22/22 metoprolol tartrate 50 mg tablet 50 mg PO BID 04/12/20 10/22/22 umeclidinium 62.5 mcg/actuation 1 inh PO DAILY 04/12/20 10/22/22 blister powder for inhalation fluticasone fur. 200 mcg-umeclid 1 ea inhalation DAILY 09/26/20 10/22/22 62.5 mcg-vilant 25 mcg inhalat.powder pramipexole 0.25 mg tablet 0.25 mg PO 09/26/20 10/22/22 albuterol sulfate 90 mcg/actuation 0 mcg inhalation 10/26/22 aerosol inhaler pramipexole 0.5 mg tablet 0.5 mg PO BEDTIME 10/26/22 tramadol 50 mg tablet 50 mg PO Q6H PRN 10/26/22 Previous Rx's Medication Instructions Recorded ezetimibe 10 mg tablet (Zetia) 10 mg PO DAILY #90 tabs 09/26/20 omega-3 acid ethyl esters 1 gram 2 cap PO BID #90 caps 01/27/21 capsule ranolazine 500 mg tablet,extended 500 mg PO BID 90 days #180 tabs 04/06/22 release,12 hr (Ranexa) atorvastatin 40 mg tablet 40 mg PO BEDTIME #90 tabs 08/27/22 amlodipine 10 mg tablet 10 mg PO DAILY #90 tabs 09/09/22 cephalexin 500 mg capsule 500 mg PO QID 7 days #28 caps 10/26/22 naproxen 500 mg tablet 500 mg PO BID PRN pain 10 days #20 10/26/22 tabs oxycodone-acetaminophen 2.5 mg-325 1 tab PO Q8H PRN pain (scale score 10/26/22 mg tablet (Percocet) 7-10) 3 days #9 tabs prednisone 20 mg tablet 40 mg (2 x 20 mg) PO DAILY 5 days 10/26/22 #10 tabs apixaban 5 mg tablet (Eliquis) 5 mg PO BID #60 tabs 04/17/23 Allergies Allergy/AdvReac Type Severity Reaction Status Date / Time No Known Allergies Allergy Verified 04/17/23 11:34 [No Known Allergies*] Review of Systems 2 Review of Systems: Yes all other systems are reviewed and are negative [facility] Past Medical History Medical History Alcohol dependence Post laminectomy syndrome Asthma Renal stones XAVIER (obstructive sleep apnea) COPD (chronic obstructive pulmonary disease) Anemia Hepatitis C Hyperlipidemia HTN (hypertension) SVT (supraventricular tachycardia) CAD (coronary artery disease) Surgical History S/P lobectomy of lung (~05/2021) Stented coronary artery Hx of thyroidectomy History of back surgery Hx of cardiac cath Family History Family History Father Cancer Mother CVD (cardiovascular disease) Social History Social History Alcohol intake: current Alcohol intake frequency: a few times a week Alcohol type: beer Patient Tobacco Use Status: Former Tobacco user Quit Date: quit 13 yr ago Tobacco use type: Cigarette Cigarette Packs Per Day: 1 Use of substances other than those prescribed or required for medical reasons: No Substance Use Type: Marijuana Advance Directives: No Advance Directives Information Provided: Yes Physical Exam ED Vital Signs: Vital Signs - 24 hr 04/17/23 11:34 04/17/23 15:01 Temperature 97.1 F 98.7 F Pulse Rate 70 79 Respiratory Rate 16 14 Blood Pressure 144/73 H 155/87 H Pulse Oximetry 99 97 Oxygen Delivery Method Room Air BMI result Body Mass Index 34.4 Const Other: The patient was awake and alert and looked very anxious and uncomfortable. HENMT Other: The face is symmetrical. ?Mucous membranes moist. Eyes Other: Pupils are round equal, conjunctivae are clear, extraocular movements intact Neck Other: No JVD Resp Effort & Inspection: normal respiratory effort Auscultation: clear to auscultation bilaterally Cardio Rate: regular rate Rhythm: abnormal rhythm Heart sounds: S1 normal heart sound present and S2 normal heart sound present GI Other: Some mild epigastric tenderness without rebound or guarding. The rest of the abdominal exam was benign. Skin Other: Pale and dry. Neuro Other: Awake and alert with an anxious affect but otherwise normal mentation. Cranial nerves are grossly intact. He moves his extremities grossly normally and was grossly neurologically intact. He had a normal gait. Course Course Course Narrative: RME:?68 yo male w/ hx of CAD, SVT, HTN, HLD, etoh dependence, gout here for eval of dizziness, chest pressure, SOB x1.5 hours. Reports waking up feeling fine, left for work when he began having constant left sided chest pain w/o radiation. Hx of multiple MIs, last MN 2 yrs ago. Follows w/ Dr. Em for cardio. Hx of etoh dependence, daily consumption, last consumed etoh last night. Denies fever, chills, palpitations, n/v, abd pain. PE: diaphoretic & short of breath. rrr. lungs CTA b/l. no jvd Plan for labs, trop, ekg, cxr Full HPI, ROS and PE to be performed by the primary ED provider. Medications Administered Discontinued Medications Generic Name Dose Route Start Last Admin Trade Name Freq PRN Reason Stop Dose Admin Acetaminophen 975 mg 04/17/23 14:33 04/17/23 14:57 Acetaminophen 325 Mg Tablet PO 04/17/23 14:34 975 mg ONCE ONE Administration Sodium Chloride 1,000 mls @ 999 mls/hr 04/17/23 12:30 04/17/23 14:22 Ns IV 04/17/23 13:30 Infused .Q1H1M ARNALDO Infusion Magnesium Sulfate 2 gm in 50 mls @ 25 mls/hr 04/17/23 12:29 04/17/23 16:20 Magnesium Sulfate/H2o IV 04/17/23 14:28 Infused ONCE ONE Infusion Medical Decision Making Medical Decision Making [facility] Narrative: The patient is a 68-year-old male with multiple medical problems including a previous myocardial infarction, and RCA stent, and known left leg peripheral vascular disease who presented complaining of chest pain and dizziness and who arrived looking somewhat unwell. His symptoms began at 10:00 this morning. His symptom onset seemed fairly acute. He was afebrile. He has not coughing a lot. His EKG showed atrial fibrillation but without definite ischemia. His vital signs were fairly unremarkable. The patient's magnesium was somewhat low. He was given IV fluids and magnesium replacement. Also swabs were sent for COVID and the flu. His COVID came back positive. His troponins are flat. His proBNP is unremarkable. His chest x-ray is unremarkable. He was given acetaminophen. Ultimately he felt considerably better. I think his symptoms today probably are manifestation of COVID. I think his atrial fibrillation is probably incidental to his presentation today. Nevertheless given that he was found to have atrial fibrillation last month and is now in atrial fibrillation I think anticoagulation would be appropriate. He will be started on apixaban and follow-up with his software engineer web applications. Lab Data 04/17/23 11:49 04/17/23 11:49 Labs: Lab Results 04/17/23 04/17/23 04/17/23 Range/Units 11:49 13:51 15:42 WBC 8.7 (4.8-10.8) X10*3/uL RBC 3.95 L (4.60-5.80) X10*6/uL Hgb 12.7 L (14.0-18.0) g/dl Hct 36.7 L (42.0-52.0) % MCV 92.9 (80.0-98.0) fL MCH 32.2 (27.0-33.0) pg MCHC 34.6 (31.0-36.0) g/dl RDW 14.3 (11.0-16.0) % Plt Count 204 D (160-400) X10*3/uL MPV 9.1 L (9.4-12.4) fL Immature Gran % (Auto) 2.0 H (0.0-0.4) % Neut % (Auto) 71.0 (45-73) % Lymph % (Auto) 13.8 L (20-40) % Long % (Auto) 12.0 H (2-11) % Eos % (Auto) 0.5 (0-4) % Baso % (Auto) 0.7 (0-2) % Lymph # (Auto) 1.2 (1.2-4.9) X10*3/uL Long # (Auto) 1.0 (0.1-1.2) X10*3/uL Eos # (Auto) 0.0 (0.0-0.4) X10*3/uL Baso # (Auto) 0.1 (0.0-0.2) X10*3/uL Abs Immat Gran (auto) 0.17 H (0.00-0.03) X10*3/uL Absolute Neuts (auto) 6.2 (2.0-8.3) x10*3/uL Absolute Nucleated RBC 0.000 (0.0-0.012) X10*3/uL Nucleated RBC % (auto) 0.0 (0.0-0.2) /100WBC PT 12.1 (11.1-13.3) SEC INR 1.0 (0.9-1.1) Sodium 136 (135-145) mmol/L Potassium 4.4 (3.3-5.1) mmol/L Chloride 101 (96-108) mmol/L Carbon Dioxide 18 L (22-29) mmol/L Anion Gap 21 H (12-20) BUN 22 H (9-16) mg/dL Creatinine 1.95 H (0.5-1.4) mg/dL Estim Creat Clear Calc 44.1 Estimated GFR 34 Random Glucose 141 H (60-115) mg/dL Calcium 10.1 (8.4-10.2) mg/dL Magnesium 1.3 L* (1.6-2.6) mg/dL Total Bilirubin 0.7 (0.0-1.0) mg/dL Direct Bilirubin 0.3 (0.0-0.5) mg/dL AST 24 (5-37) U/L ALT 28 (0-40) U/L Alkaline Phosphatase 99 (39-117) U/L Troponin I High Sens 13.2 7.6 (<3.5-35.0) ng/L B-Natriuretic Peptide 97 (<100) pg/mL Total Protein 7.6 (6.5-8.0) g/dL Albumin 4.4 (3.5-5.0) g/dL Lipase 49 (8-78) U/L COVID-19 (VICKEY) Positive A (Negative) COVID-19 Clin Com See Note Influenza Type A (RONI) Negative (Negative) Influenza Type B (RONI) Negative (Negative) Influenza A & B Note See Note Independent Interpretation I performed an independent interpretation of an: EKG Interpretation: EKG at 11:41 shows atrial fibrillation at 71 beats per minute. No definite acute ischemic changes. Discharge Plan Discharge Clinical Impression: Chest pain, COVID, Atrial fibrillation Patient Disposition: Home, Self-Care Instructions: A-fib (Atrial Fibrillation) (ED), Blood Thinners (ED), COVID-19 (Coronavirus Disease 2019) (ED) Additional Instructions: Your testing today was reassuring from the point of view of your heart or any other acutely dangerous process. However you have tested positive for COVID today. Additionally you are in atrial fibrillation today. Given that you have this condition of atrial fibrillation I think that putting you on an anticoagulant medication to reduce your risk of stroke would be appropriate. I have sent a prescription for this medication to your pharmacy. Please take this 2 times a day. While on anticoagulant medication you may use Tylenol for discomfort but you should not take ibuprofen or naproxen or other drugs considered ?nonsteroidal anti-inflammatories.? With regard to your COVID you should isolate yourself for the next 5 days and wear a mask if you are in contact with anybody. Take a lot of fluids. Use acetaminophen as needed for discomfort. Please contact your software engineer web applications's office on Wednesday to discuss your condition of atrial fibrillation and possibly get an earlier appointment than you currently have. Stay in touch with your regular doctor for any additional questions. Return to the emergency room if significantly worse. Prescriptions: New Eliquis 5 mg tablet 5 mg PO BID Qty: 60 0RF No Action omega-3 acid ethyl esters 1 gram capsule 2 cap PO BID Qty: 90 3RF ranolazine [Ranexa] 500 mg tablet extended release 12 hr 500 mg PO BID 90 Days Qty: 180 3RF atorvastatin 40 mg tablet 40 mg PO BEDTIME Qty: 90 3RF amlodipine 10 mg tablet 10 mg PO DAILY Qty: 90 3RF prednisone 20 mg tablet 40 mg PO DAILY 5 Days Qty: 10 0RF cephalexin 500 mg capsule 500 mg PO QID 7 Days Qty: 28 0RF naproxen 500 mg tablet 500 mg PO BID PRN (Reason: pain) 10 Days Qty: 20 0RF oxycodone-acetaminophen [Percocet] 2.5-325 mg tablet 1 tab PO Q8H PRN (Reason: pain (scale score 7-10)) 3 Days Qty: 9 0RF Rx Instructions: Partial Fill upon patient request. Trelegy Ellipta 200-62.5-25 mcg blister with device 1 ea inhalation DAILY ezetimibe [Zetia] 10 mg tablet 10 mg PO DAILY Qty: 90 3RF gabapentin 600 mg tablet 600 mg PO TID Incruse Ellipta 62.5 mcg/actuation blister with device 1 inh PO DAILY lisinopril 40 mg tablet 40 mg PO DAILY metoprolol tartrate 50 mg tablet 50 mg PO BID famotidine 40 mg tablet 40 mg PO DAILY pramipexole 0.25 mg tablet 0.25 mg PO albuterol sulfate 90 mcg/actuation HFA aerosol inhaler 0 mcg inhalation pramipexole 0.5 mg tablet 0.5 mg PO BEDTIME tramadol 50 mg tablet 50 mg PO Q6H PRN Referrals: Kojo Fermin MD [Primary Care Provider] - (Atrial fibrillation, COVID) Danilo Em MD [Physician] - (Atrial fibrillation) Interventions: ED Discharge Assessment Last Done: 04/17/23 17:26
[2023-04-17 11:34] VITALS: BP 144/73; PULSE 70; RESP 16; TEMP 36.2; O2SAT 99; BMI 34.4
--- NOTE | 2023-04-17 11:35 | ECG_ITS ---
Test Reason : CHEST PAIN Blood Pressure : / mmHG Vent. Rate : 071 BPM Atrial Rate : 000 BPM P-R Int : 000 ms QRS Dur : 076 ms QT Int : 412 ms P-R-T Axes : 000 002 069 degrees QTc Int : 447 ms Atrial fibrillation Inferior infarct (cited on or before 06-APR-2016) Cannot rule out Anterior infarct , age undetermined Abnormal ECG When compared with ECG of 18-DEC-2017 13:38, Atrial fibrillation has replaced Sinus rhythm Serial changes of Inferior infarct Present Referred By: Georgie Obrien Electronically Signed By:Quinn Smyth
[2023-04-17 11:58] LABS: Basophils Absolute Auto 0.1 X10*3/uL (0.0-0.2); Basophils Percent Auto 0.7 % (0-2); Eosinophils Percent Auto 0.5 % (0-4); Hematocrit 36.7 % (42.0-52.0); Hemoglobin 12.7 g/dl (14.0-18.0); Imm Gran Abs Auto 0.17 X10*3/uL (0.00-0.03); Lymphocytes Absolute Auto 1.2 X10*3/uL (1.2-4.9); Lymphocytes Percent Auto 13.8 % (20-40); MANUAL DIFF FLAG NO; Mean Corpuscular HGB Conc 34.6 g/dl (31.0-36.0); Mean Corpuscular Hemoglobin 32.2 pg (27.0-33.0); Mean Corpuscular Volume 92.9 fL (80.0-98.0); Mean Platelet Volume 9.1 fL (9.4-12.4); Neutrophils Absolute Auto 6.2 x10*3/uL (2.0-8.3); Platelet Count 204 X10*3/uL (160-400); Red Blood Count 3.95 X10*6/uL (4.60-5.80); Red Cell Distribution Width 14.3 % (11.0-16.0); White Blood Count 8.7 X10*3/uL (4.8-10.8)
[2023-04-17 12:01] LABS: Prothrombin Time 12.1 SEC (11.1-13.3)
[2023-04-17 12:16] LABS: Troponin-I High Sensitivity 13.2 ng/L (<3.5-35.0)
[2023-04-17 12:18] LABS: Anion Gap 21 (12-20); Blood Urea Nitrogen 22 mg/dL (9-16); Calcium 10.1 mg/dL (8.4-10.2); Carbon Dioxide 18 mmol/L (22-29); Chloride 101 mmol/L (96-108); Creatinine Clr Calc Pharmacy 44.1; Estimated Glomerular Filt Rate 34; Glucose Random 141 mg/dL (60-115); Lipase 49 U/L (8-78); Potassium 4.4 mmol/L (3.3-5.1); Sodium 136 mmol/L (135-145)
[2023-04-17 12:37] LABS: B Type Natriuretic Peptide 97 pg/mL (<100)
--- OUTSIDE RECORDS SUMMARY | 2023-04-17 12:47 | XMS_ITS | Patient Health Record ---
Author Name Unknown Organization [facility] Address [address] [place] [address] Care Team Providers Care Tool Maker Apprentice Name Role Phone Zander CORADO, Kojo Primary Care Provider Power De La Torre Jr Unavailable Kenny Funez Unavailable [phone] ALLERGIES No Known Allergies RESULTS Component Value Reference Range Notes Complete Blood Count Auto Di ff Reviewed date:10/26/2022 03:44:53 PM Interpretation: Performing Lab:[facility], [address] [place] [id number] Notes/Report: White Blood Count 8.9 4.8-10.8 X10*3/uL [...] INR Reviewed date:10/26/2022 03:42:58 PM Interpretation: Performing Lab:[address] [phone] Notes/Report: Prothrombin Time 11.4 11.1-13.3 SEC INTERNATIONAL [...] Panel Reviewed date:10/26/2022 03:43:11 PM Interpretation: Performing Lab:[address] [phone] Notes/Report: Bilirubin Total 0.7 0.0-1.0 mg/dL Bilirubin Direct 0.2 0.0-0.5 mg/dL Aspartate Amino Transferase 35 5-37 U/L Alanine Aminotransferase 42 0-40 U/L Total Protein 7.3 6.5-8.0 g/dL Albumin Level 4.2 3.5-5.0 g/dL Alkaline Phosphatase 94 39-117 U/L Pathology Reviewed date:11/18/2022 08:50:20 AM Interpretation: Performing Lab:[address] [id number] Notes/Report: REASON FOR REFERRAL No Information MEDICATIONS [...] directed Orally O nce a day Active [place] 3 1000 MG 1 capsule Orally Onc [...] Problem Colon cancer screening (Z12.11) Active confirmed 333547281 Problem Rectal bleeding (K62.5) Active confirmed 65704812 Problem Left lower quadrant pain (R10.32) Active confirmed 784449897 Problem Other cirrhosis of liver (K74.69) Active confirmed 12471626 Problem Chronic hepatitis C without hepatic coma (B18.2) Active confirmed 678440746 Problem Liver mass (R16.0) Active confirmed 949669973 Problem 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) Active confirmed 3360410965127095 Problem Abnormal ultrasound of liver (R93.2) Active confirmed 91386013808690144 Problem Abnormal MRI, liver (R93.2) Active confirmed 926483231 Problem Focal nodular hyperplasia of liver (K76.89) Active confirmed 090570862 Problem Elevated liver function tests (R94.5) Active confirmed 917242826 Encounters Encounter Location Date Provider Diagnosis [facility] Outpatient [address] [place] [id number] 11/11/2022 Power Barrera Jr Cedeno's esophagus with dysplasia K22.719 [facility] [address] [place] [phone] 09/29/2022 Kenny Funez [facility] [address] [place] [phone] 12/02/2022 Power Barrera Jr Cedeno's esophagus with dysplasia K22.719 [facility] [address] [place] [phone] 04/23/2022 Power Barrera Jr Cedeno's esophagus with dysplasia K22.719 [facility] [address] [place] [id number] 05/20/2022 Power Barrera Jr [facility] [address] [place] [phone] 10/26/2022 Power Barrera Jr [facility] [address] [place] [phone] 11/18/2022 Power Barrera Jr ASSESSMENTS Encounter Date Diagnosis Assessment Notes Treatment Notes Treatment Clinical Notes 04/23/2022 Cedeno's esophagus with dysplasia (ICD-10 - K22.719) 11/11/2022 Cedeno's esophagus with dysplasia (ICD-10 - K22.719) 12/02/2022 Cedeno's esophagus with dysplasia (ICD-10 - K22.719) Cedeno esophagus material was printed PLAN OF TREATMENT Pending [...] GI ENDOSCOPY 04/23/2022 Next Appt Details Provider Name:Power hall , 12/01/2023 10:00:00 AM, [address] [place] [address], [address], [place], [address], Insurance Providers Payer Name Payer Address Payer Phone Subscriber Number Group Number Insured Name Patient Relationship to Insured Coverage Start Date Coverage End Date MEDICARE OF [place] [address] [place] [address] [id number] KAHLIL SIM Self - patient is the insured MEDICAID OF [facility] [address] [place] [address] [id number] KAHLIL SIM Self - patient is the insured MEDICAL (GENERAL) HISTORY Medical History History ICD Code Colon polyps, colonoscopy 04/13, multiple adenomas, three-year followup hepatitis C, F4 fibrosis, status post Pastrana rvoni x12 weeks with SVR hypertension depression back pain elevated cholesterol coronary artery disease, [place] 12/2017, ross nt placement leg numbness. anemia [...]
[2023-04-17] MEDS: 0.9 % Sodium Chloride 1,000 ML 999 ML IV (13:07)
[2023-04-17] MEDS: Magnesium Sulfate/H2O 2 GM/50 ML PIGGYBACK IV (13:07)
--- NOTE | 2023-04-17 14:00 | PC.NURSE ---
a+o x3, reports 3/10 chest pain that started this morning. pt reports that he had a few drinks last night and he woke up with the pain. hx of heart attack, on aspirin. 22g iv was inserted in his R forearm, fluids and meds given as documented. pt's sons are at his bedside.
[2023-04-17 14:04] LABS: Alanine Aminotransferase 28 U/L (0-40); Albumin Level 4.4 g/dL (3.5-5.0); Alkaline Phosphatase 99 U/L (39-117); Aspartate Amino Transferase 24 U/L (5-37); Bilirubin Direct 0.3 mg/dL (0.0-0.5); Bilirubin Total 0.7 mg/dL (0.0-1.0); Total Protein 7.6 g/dL (6.5-8.0)
[2023-04-17 14:13] LABS: IDNOW Serial# 152EDE1D
[2023-04-17 14:14] LABS: COVID-19 Test Positive (Negative)
[2023-04-17 14:20] LABS: IDNOW Serial# 9DB6401D; Influenza A Negative (Negative); Influenza B2 Negative (Negative)
[2023-04-17] MEDS: Acetaminophen 325 MG TABLET 975 MG PO (14:57)
[2023-04-17 15:01] VITALS: BP 155/87; PULSE 79; RESP 14; TEMP 37.1; O2SAT 97
[2023-04-17 16:10] LABS: Troponin-I High Sensitivity 7.6 ng/L (<3.5-35.0)
[2023-04-18 06:48] LABS: Magnesium 1.3 mg/dL (1.6-2.6)
== END 2023-04-17 17:27 | disposition home or self-care (01) ==
PROVIDERS: Physician Assistant Medical; Emergency Provider Emergency Medicine; PCP Internal Medicine
DX: U07.1 COVID-19 (principal); R07.9 Chest pain, unspecified; I48.91 Unspecified atrial fibrillation; R06.02 Shortness of breath; I10 Essential (primary) hypertension; E78.5 Hyperlipidemia, unspecified; I25.2 Old myocardial infarction; Z79.02 Long term (current) use of antithrombotics/antiplatelets; Z79.899 Other long term (current) drug therapy
CPT/HCPCS: 36415; 71046; 80048; 80076; 83690; 83735; 83880; 84484; 85025; 85610; 87502; 87635; 93005; 96365; 96366; 99284; 99285; J3475

== ENCOUNTER → 2023-04-17 11:35 | Outpatient (BNV) | payer MEDICARE, MEDICAID, SELFPAY | PROVIDERS: Emergency Provider Emergency Medicine; PCP Internal Medicine; Visit Provider Internal Medicine Cardiovascular Disease | DX: I48.91 Unspecified atrial fibrillation (principal) | CPT/HCPCS: 93010 ==

== ENCOUNTER 2023-05-04 09:14 | Outpatient (AMB) | payer MEDICARE, MEDICAID, SELFPAY ==
[2023-05-04 09:24] VITALS: BP 120/80; PULSE 74; BMI 34.2
--- NOTE | 2023-05-04 09:24 | MHC.OFFVIS ---
Intake Vital Signs 05/04/23 09:24 Height 5 ft 10 in Weight 238 lb 1.588 oz BMI 34.2 BP 120/80 Blood Pressure Location Lt brachial Position Sitting Pulse 74 Intake Visit Reasons: Pre op clearance/back surgery/05-29 Intake Note: Pre=op back surgery 05/29 had afib in [place] was in the ED Corporate Development Intern Required: No Allergies No Known Allergies [No Known Allergies*] Allergy (Verified 04/17/23 11:34) Medication List - Last Reconciled 05/04/23 by Danilo Em MD albuterol sulfate 90 mcg/actuation 0 mcg inhalation amlodipine 10 mg PO DAILY apixaban (Eliquis) 5 mg PO BID atorvastatin 40 mg PO BEDTIME cephalexin 500 mg PO QID 7 days ezetimibe (Zetia) 10 mg PO DAILY famotidine 40 mg PO DAILY pytpnxvhnon-azqiegrte-csbpazxp 200-62.5-25 mcg 1 ea inhalation DAILY gabapentin 600 mg PO TID lisinopril 40 mg PO DAILY metoprolol tartrate 50 mg PO BID naproxen 500 mg PO BID PRN 10 days omega-3 acid ethyl esters 2 caps PO BID pramipexole 0.25 mg PO pramipexole 0.5 mg PO BEDTIME ranolazine ER (Ranexa) 500 mg PO BID 90 days tramadol 50 mg PO Q6H PRN umeclidinium 62.5 mcg/actuation 1 inh PO DAILY HPI HPI Comments History of Present Illness Details Vineet comes for follow-up, for 2 reasons. Recently on April 14 he came to the emergency room because he suddenly developed shortness of breath and chest pressure and rapid heart rate. He was noted to be in new onset atrial fibrillation with rapid ventricular response. He was then started on Eliquis 5 mg b.i.d. and metoprolol 50 mg b.i.d. which is currently taking. Comes for follow-up today but was also scheduled for undergoing spine surgery under general anesthesia on May 29. Since new onset atrial fibrillation he is noticing some increased exertional shortness of breath but his symptoms of palpitations have improved. Denies any clear orthopnea, PND, leg edema. Denies any exertional chest pain but has constant precordial chest pain which she has had for a long time. He is taking all his medications. Drinks about 2 drinks every day. Denies any lightheadedness, syncope. No bleeding issues or neurologic events. [facility] Medical History Alcohol dependence Post laminectomy syndrome Asthma Renal stones XAVIER (obstructive sleep apnea) COPD (chronic obstructive pulmonary disease) Anemia Hepatitis C Hyperlipidemia HTN (hypertension) SVT (supraventricular tachycardia) CAD (coronary artery disease) Surgical History S/P lobectomy of lung (~05/2021) Stented coronary artery Hx of thyroidectomy History of back surgery Hx of cardiac cath Family History Father Cancer Mother CVD (cardiovascular disease) Social History Alcohol intake: current Alcohol intake frequency: a few times a week Alcohol type: beer Patient Tobacco Use Status: Former Tobacco user Quit Date: quit 13 yr ago Tobacco use type: Cigarette Cigarette Packs Per Day: 1 Substance Use Type: Marijuana Review of Systems Const Denies chills, Denies fatigue, Denies fever(s), Denies frequent falls, Denies weakness, Denies weight gain and Denies weight loss ENT Denies dizziness Card Denies chest pain, Denies leg edema, Denies lightheadedness, Denies palpitations, Denies dyspnea, Denies dyspnea on exertion, Denies orthopnea and Denies other (loss of consciousness) Resp Denies cough, Denies dyspnea and Denies dyspnea on exertion GI Denies hematochezia and Denies change in stool character Musc Denies abnormal gait, Denies muscle weakness, Denies numbness, Denies radiating pain into limb and Denies tingling Neuro Denies abnormal gait, Denies dizziness, Denies frequent falls, Denies numbness, Denies tingling and Denies weakness Endo Denies fatigue and Denies palpitations Physical Exam Vital Signs: Last Vital Signs Pulse 74 05/04/23 09:24 BP 120/80 05/04/23 09:24 BMI result Body Mass Index 34.2 Const General: cooperative, comfortable, no acute distress, alert and awake Nutritional Appearance: overweight Orientation/consciousness: patient oriented x3 Limitations: no limitations Neck Neck: Yes trachea midline, Yes supple and Yes no JVD Carotids: no bruits Resp Effort & Inspection: normal respiratory effort Auscultation: clear to auscultation bilaterally and diminished lung sounds Cardio Jugular venous distension: no JVD Palpation: normal PMI Rate: regular rate Rhythm: abnormal rhythm irregularly irregular Heart sounds: S1 normal heart sound present, S2 normal heart sound present, no click, no gallops and Murmur heart sound present systolic mid, decrescendo and crescendo GI Auscultation: normal bowel sounds Skin General skin exam: no rashes or lesions noted Neuro General: patient oriented x3 and no focal motor deficits Extrem General: Yes no clubbing, cyanosis or edema Psych Appearance: grossly normal Office Procedures EKG Details: EKG shows atrial fibrillation with nonspecific ST changes [id number], Complete Assessment & Plan Assessment & Plan (1) Persistent atrial fibrillation: Code(s): I48.19 - Other persistent atrial fibrillation Plan: Patient with new onset and persistent atrial fibrillation with symptoms of shortness of breath due to loss of AV synchrony. Will require rhythm management long-term although in the recent future he is going to have surgery that will require interruption of his oral anticoagulation therapy and therefore will postpone any management of atrial fibrillation after his planned spine surgery. Continue metoprolol for rate control for now. Advised to call me with worsening symptoms. Continue full oral anticoagulation with Eliquis 5 mg b.i.d.. Avoid concomitant aspirin therapy to reduce bleeding risk. Eliquis can be withheld for surgery as planned by the surgical team and reinstituted as soon as possible after surgery. Once he is able to take oral anticoagulation therapy for 3-4 weeks continuously will plan for synchronized cardioversion. Will schedule for office visit in early June. By last echocardiogram he had moderate left atrial enlargement will most likely require antiarrhythmic support. (2) CAD (coronary artery disease): Code(s): I25.10 - Atherosclerotic heart disease of [place] coronary artery without angina pectoris Plan: CAD with prior inferior STEMI with atypical chest discomfort. He continues to have symptoms somewhat of angina is currently on metoprolol and Ranexa for the same which has improved his symptoms. His current persistent precordial chest pain appears to be noncardiac in origin. Pursue workup as below. Continue high-intensity statin therapy and metoprolol. (3) Aortic stenosis: Code(s): I35.0 - Nonrheumatic aortic (valve) stenosis Plan: Aortic stenosis which appears at least moderate by clinical exam. Will follow with echocardiogram in near future to assess for the severity. Continue aggressive risk factor modifications above. Target goal LDL less than 70 mg/dL. (4) Preoperative cardiovascular examination: Code(s): Z01.810 - Encounter for preprocedural cardiovascular examination Plan: Preoperative cardiovascular risk stratification for intermediate risk surgery under general anesthesia in near future with limited exercise capacity. Further evaluation with vasodilating myocardial perfusion imaging for risk stratification. Will also require echocardiogram to assess for severity of aortic stenosis to further assess risk. These tests will be scheduled in near future. If myocardial perfusion imaging is within normal limits, he would be intermediate risk for perioperative cardiovascular morbidity mortality. Continue metoprolol and all other antihypertensive therapy in the perioperative time. Also continue statin therapy. Apixaban can be withheld for 3-4 days prior to surgery as required by surgical team and reinstated as soon as possible after surgery. He is also plan for peripheral vascular surgery and if this is not urgent this can be put on hold so we can manage his atrial fibrillation appropriately. Will follow up with him in early June in 6 weeks time. Thank you for allowing me to partake in his care Coding Level of Care Code Est Pt Level 4 (53460) Diagnoses Persistent atrial fibrillation I48.19 CAD (coronary artery disease) I25.10 Aortic stenosis I35.0 Preoperative cardiovascular examination Z01.810 CPT Codes EKG - CPT: 80108-[id number], Complete ([id number])
== END 2023-05-04 10:02 | disposition home or self-care (01) ==
PROVIDERS: PCP Internal Medicine; Visit Provider Internal Medicine Cardiovascular Disease
DX: I48.19 Other persistent atrial fibrillation (principal); I25.10 Atherosclerotic heart disease of native coronary artery without angina pectoris; I35.0 Nonrheumatic aortic (valve) stenosis; Z01.810 Encounter for preprocedural cardiovascular examination
CPT/HCPCS: 93010; 99214

== ENCOUNTER → 2023-05-04 09:14 | Outpatient (BNVA) | payer MEDICARE, MEDICAID, SELFPAY | PROVIDERS: PCP Internal Medicine; Visit Provider Internal Medicine Cardiovascular Disease | DX: Z01.810 Encounter for preprocedural cardiovascular examination (principal); I48.19 Other persistent atrial fibrillation; I25.10 Atherosclerotic heart disease of native coronary artery without angina pectoris; I35.0 Nonrheumatic aortic (valve) stenosis | CPT/HCPCS: 93005; 99212 ==

== ENCOUNTER → 2023-05-13 08:44 | Outpatient (REF) | payer MEDICARE, MEDICAID, SELFPAY ==
--- NOTE | ~2023-05-13 | NM_ITS ---
Myocardial perfusion study Indication: Atherosclerotic heart disease to evaluate for myocardial ischemia Technique: The patient was brought in for a Lexiscan perfusion study on 05/13/2023. Patient performed low-level exercise and was injected 0.4 mg of Lexiscan intravenously. Within a minute of injection, 35 mCi of sestamibi was given intravenously. Images were obtained using the SPECT gamma camera interlaced with the gating device. Images were obtained in supine position. Resting perfusion study was performed on 05/17/2023. Patient was administered 35 mCi of sestamibi intravenously at rest. Images were then obtained in supine position. Images obtained with and without CT attenuation. Total DLP 95 mGy-cm. Images were processed with the software and compared side to side in short axis, horizontal long axis and vertical long axis views. Findings: The stress perfusion study showed non attenuated images show absent uptake in the inferoapical wall of the LV myocardium with moderately reduced uptake in the basal and mid inferior wall of the LV myocardium as well as moderately reduced uptake in the inferoseptal LV myocardium. Attenuation corrected images show absent uptake in the inferoapical wall of the LV myocardium minimally reduced uptake in the basal and mid inferior wall of the LV myocardium.. The gated study shows normal LV systolic function with calculated LVEF of 62%. LV cavity is normal in size. The gated study shows normal systolic wall thickening and contraction of segments. Resting study shows no change in perfusion pattern to stress study. Gating at rest reveals normal systolic wall motion with ejection fraction at 56%. The findings are consistent with no clear reversible defect suggestive of ischemia. There is a fixed inferoapical defect consistent with prior myocardial infarction.. NM/NM cardiolite stress test Impression: 1. Myocardial perfusion imaging study shows no ischemia but evidence of inferoapical infarct 2. Gated LVEF is 62% 3. Transient ischemic dilatation not present EKG is nondiagnostic for ischemia
--- NOTE | 2023-05-13 08:47 | CA_ITS ---
Acquisition Time: 2023-05-13 08:49:00 Total Exercise Time: 00:02:00 Test Indications: Dyspnea CHEST PAIN Medications: SEE H Protocol: LEXISCAN Max HR: 088 BPM 58% of Pred: 151 BPM Max BP: 124/062 mmHG Max Work Load: 1.0 METS Pharmacological stress test with Lexiscan injection while sitting without anginal symptoms, without arrhythmias, with normotensive response to injection, with nondiagnoistic EKGs. Nuclear images pending. Test reviewed with Dr. Em Referred By: Danilo Em Overread By: Harleen Crain
== END ==
LOC: HO.CARD 08:44
PROVIDERS: PCP Internal Medicine; Visit Provider Internal Medicine Cardiovascular Disease
DX: I25.10 Atherosclerotic heart disease of native coronary artery without angina pectoris (principal); I10 Essential (primary) hypertension; I47.10 Supraventricular tachycardia, unspecified
CPT/HCPCS: 78452; 93017; A9500; J0280; J2785

== ENCOUNTER → 2023-05-13 08:47 | Outpatient (BNV) | payer MEDICARE, MEDICAID, SELFPAY | PROVIDERS: PCP Internal Medicine; Visit Provider Nurse Practitioner | DX: R07.9 Chest pain, unspecified (principal) | CPT/HCPCS: 78452; 93016; 93018 ==

== ENCOUNTER → 2023-05-19 07:39 | Outpatient (REF) | payer MEDICARE, MEDICAID, SELFPAY ==
--- NOTE | 2023-05-19 07:42 | CA_ITS ---
Transthoracic Echocardiogram Patient (Last, First, Middle): Shane Nichole D Gender: Male Date of : 1955 Age: 68 Procedure Date: 05/19/2023 Procedure Type: Transthoracic Echocardiogram Location: OP Height: 182.88 cm Weight: 108.86 kg BSA: 2.30 m2 Heart Rate: bpm BP: 108 / 68 mmHg Vp Legal Affairs: WILMER Referring MD: Danilo Em MD Symptoms: I35.0 - Nonrheumatic aortic (valve) stenosis Study Quality: Adequate with contrast ECG Rhythm: Atrial Fibrillation Conclusions: - The left ventricular systolic function is normal. The calculated ejection fraction is 68% by biplane method. - There is moderately increased left ventricular wall thickness. - The basal inferior and mid inferior segments are hypokinetic. - Severe biatrial enlargement. - There is severe calcification of the aortic valve. There is moderate aortic valve stenosis. - There is moderate mitral annular calcification. Findings Procedure Information Contrast agent, definity, is being given per protocol without apparent complications. Left Ventricle Normal left ventricular cavity size. There is moderately increased left ventricular wall thickness. The left ventricular systolic function is normal. The calculated ejection fraction is 68% by biplane method. There is no evidence of regional wall motion abnormalities. Diastolic function is indeterminate on the basis of available data. Wall Motion Rest Echo Findings The basal inferior and mid inferior segments are hypokinetic. Right Ventricle Normal right ventricular cavity size and systolic function. Atria Severe biatrial enlargement. Aortic Valve There is severe calcification of the aortic valve. There is moderate aortic valve stenosis. There is no aortic valve regurgitation. Mitral Valve There is moderate mitral annular calcification. There is mild mitral valve regurgitation. There is no mitral valve stenosis. Pulmonic Valve The pulmonic valve is likely normal. Tricuspid Valve There is trace tricuspid valve regurgitation. There is no evidence of pulmonary hypertension. Great Vessels The asc aorta is normal in size. Venous The inferior vena cava is normal in size and collapses greater than 50% with inspiration. Pericardium/Pleural There is a trivial pericardial effusion. Prior Study Comparison Changes noted compared to prior study dated: 01/31/2021. Progression of aortic valve stenosis. Measurements 2D Linear Measurements IVSd: 1.53 0.6-0.9/0.6-1.0 cm LVIDd: 4.71 3.9-5.3/4.2-5.9 cm LVIDd Index: 2.05 2.4-3.2/2.2-3.1 cm/m2 LVIDs: 3.29 2.0-3.6 cm LVPWd: 1.44 0.7-1.1 cm LA Diam: 5.50 2.7-3.8/3.0-4.0 cm LAIDs Index: 2.39 1.5-2.3 cm/m2 LV Mass: 362.44 67-162/88-224 g LV Mass Index: 157.58 43-95/49-115 g/m2 LVOT Diam: 2.30 3.0+(-)1.3 cm 2D Systolic Function EF 4C: 67.40 >55% EF 2C: 71.90 >55% EF BiP: 68.10 >55% Mitral Valve MV VTI: 0.33 MV Pk Omkar: 1.47 MV Mn Omkar: 0.75 MV Pk Grad: 9.00 MV Mn Grad: 3.00 MV Pk E: 1.32 MV Decel Time: 201.00 E'Lateral: 6.70 E'Medial: 5.48 E/E' Med: 24.10 E/E' Lat: 19.70 PHT: 59.00 MVA PHT: 3.73 MVA Continuity: 2.49 Decel [place]: 6.61 Aortic Valve AoV Pk Omkar: 2.87 AoV Mn Omkar: 1.83 AoV VTI: 0.59 AoV Pk Grad: 33.00 Aov Mn Grad: 16.00 YAMEL Cont.VTI: 1.41 LVOT LVOT Pk Omkar: 0.92 LVOT Mn Omkar: 0.55 LVOT VTI: 0.20 LVOT Pk Grad: 3.00 LVOT Mn Grad: 2.00 LVOT Diam: 2.30 LVOT Area: 4.15 Diastolic Function MV Pk E: 1.32 E'Medial: 5.48 E/E' Med: 24.10 E' Laterial: 6.70 E/E' Lat: 19.70 Right Ventricle TAPSE (mm): 23.70 TVS' Omkar: 10.40 Tricuspid Valve TR Pk Omkar: 2.25 TR Pk Grad: 20.00 RA Press: 3.00 RVSP: 23.00 Great Vessels Aorta Sinus of Valsalva: 3.73 2.0-3.[address] [place]: 2.60 1.7-3.4 cm Ao Asc: 3.80 2.1-3.4 cm Updated in Other Vendor System with Status of Final Jonny Chin MD electronically signed on 05/21/2023 8:03:49 AM with status of Final
== END ==
LOC: HO.CARD 07:39
PROVIDERS: PCP Internal Medicine; Visit Provider Internal Medicine Cardiovascular Disease
DX: I35.0 Nonrheumatic aortic (valve) stenosis (principal)
CPT/HCPCS: 93306; Q9957

== ENCOUNTER → 2023-05-19 07:42 | Outpatient (BNV) | payer MEDICARE, MEDICAID, SELFPAY | PROVIDERS: PCP Internal Medicine; Visit Provider Internal Medicine | DX: I35.0 Nonrheumatic aortic (valve) stenosis (principal); I34.0 Nonrheumatic mitral (valve) insufficiency | CPT/HCPCS: 93306 ==

== ENCOUNTER 2023-06-03 10:33 | Day surgery (SDC) | payer MEDICARE, MEDICAID, SELFPAY ==
[2023-05-19 10:10] VITALS: BP 103/66; PULSE 60; RESP 16; O2SAT 95; BMI 31.9
--- NOTE | 2023-05-19 10:29 | P.CONAN_ITS ---
Documented by User: Viry Soler NP 05/28/23 12:00 HPI - Anesthesia Eval Consult details Narrative: 68yo M for L5-S1 Micro lumbar discectomy, 06/01/23 Pulmo optimized. Cardiac optimized No recent illness No CP/SOB with helpin friend move [place] for afib (new onset 03/2023). OK to hold per cardiology CAD/Stemi s/p stent 2018 Aortic stenosis. Moderate by 04/2023 echo ETOH: 3-4 nightly. Will gradually decrease to one nightly s/p RUL lobectomy 03/2021 (non-cancerous) COPD/Asthma. Stable. Trelegy daily. Duoneb QAM. Albuterol ~ 1 x weekly Hx Hep C s/p treatment GERD. H2 patrick controls PMFSH Active Problems Active Problems: All Active Problems (Updated 05/19/23 @ 09:54 by Blanca Hodge RN) Aortic stenosis (Acute) Persistent atrial fibrillation (Acute) COVID (Acute) PAD (peripheral artery disease) (Acute) Back pain (Acute) Lumbar radiculopathy (Acute) Lumbar spondylosis (Acute) Post laminectomy syndrome (Acute) Alcohol dependence (Acute) CAD (coronary artery disease) (Acute) SVT (supraventricular tachycardia) (Acute) HTN (hypertension) (Acute) Hyperlipidemia (Acute) Past Medical History Medical History COVID-19 Blindness of left eye History of eye prosthesis Thyroid disease GERD (gastroesophageal reflux disease) Numbness On beta patrick at home On anticoagulant therapy Murmur PVD (peripheral vascular disease) Myocardial infarction Atrial fibrillation Alcohol dependence Post laminectomy syndrome Asthma Renal stones XAVIER (obstructive sleep apnea) COPD (chronic obstructive pulmonary disease) Anemia Hepatitis C Hyperlipidemia HTN (hypertension) SVT (supraventricular tachycardia) CAD (coronary artery disease) Family History Family History Father Cancer Mother CVD (cardiovascular disease) Family history of problems with anesthesia: No Surgical History Surgical History Hx of eye surgery History of esophagogastroduodenoscopy (EGD) H/O colonoscopy S/P lobectomy of lung (~05/2021) Stented coronary artery Hx of thyroidectomy History of back surgery Hx of cardiac cath History of Problems with Anesthesia: No Social History Social History Are you a primary rn progressive care unit to a significant other at home: No Do you presently have visiting nurse or other home services: No Alcohol intake: current Alcohol intake frequency: 0-2 drinks per day Alcohol type: beer Patient Tobacco Use Status: Former Tobacco user Quit Date: 2009 Tobacco use type: Cigarette Cigarette Packs Per Day: 1 Use of substances other than those prescribed or required for medical reasons: Yes Substance Use Type: Marijuana Substance Use Frequency: Daily Have you been hit, kicked, punched, or otherwise hurt by someone within the past year? If so, by whom?: No Advance Directives: No Advance Directives Information Provided: Yes Advance Directives on File: No Recently lost weight without trying: No Eating poorly because of decreased appetite: No Poor oral hygiene: Yes (full upper denture, missing molars on the bottom both sides) Meds Allergies Allergy/AdvReac Type Severity Reaction Status Date / Time No Known Allergies Allergy Verified 04/17/23 11:34 [No Known Allergies*] Home Medications Medication Instructions Recorded Confirmed Last Taken Type famotidine 40 mg tablet 40 mg PO DAILY 04/12/20 05/19/23 06/03/23 History gabapentin 600 mg tablet 600 mg PO TID 04/12/20 05/19/23 06/03/23 History lisinopril 40 mg tablet 40 mg PO DAILY 04/12/20 05/19/23 06/03/23 History metoprolol tartrate 50 mg tablet 50 mg PO BID 04/12/20 05/19/23 06/03/23 History albuterol sulfate 90 mcg/actuation 2 puff inhalation QID PRN 10/26/22 05/19/23 06/03/23 History aerosol inhaler Shortness Of Breath Or Wheezing pramipexole 0.5 mg tablet 0.5 mg PO BEDTIME 10/26/22 05/19/23 06/03/23 History tramadol 50 mg tablet 50 mg PO Q6H PRN Pain 10/26/22 05/19/23 Unknown History acetaminophen 325 mg tablet 975 mg PO DAILY 05/19/23 06/03/23 06/03/23 08:00 History aspirin 81 mg tablet,delayed 81 mg PO DAILY 05/19/23 05/19/23 06/03/23 History release atorvastatin 40 mg tablet 40 mg PO DAILY 05/19/23 05/19/23 06/03/23 History cholecalciferol (vitamin D3) 25 25 mcg PO DAILY 05/19/23 05/19/23 Unknown History mcg (1,000 unit) capsule (Vitamin D3) cyanocobalamin (vitamin B-12) 500 500 mcg PO DAILY 05/19/23 05/19/23 Unknown History mcg tablet (Vitamin B-12) fluticasone fur. 200 mcg-umeclid 1 ea inhalation DAILY 05/19/23 05/19/23 06/03/23 History 62.5 mcg-vilant 25 mcg inhalat.powder (Trelegy Ellipta) ipratropium 0.5 mg-albuterol 3 mg 3 ml inhalation QID PRN Shortness 05/19/23 05/19/23 Unknown History (2.5 mg base)/3 mL nebulization Of Breath Or Wheezing soln magnesium oxide 400 mg PO DAILY 05/19/23 05/19/23 Unknown History Exam Height,Weight and Vital Signs: Height 6 ft Weight 106.594 kg Last Vital Signs Pulse 60 05/19/23 10:10 Resp 16 05/19/23 10:10 BP 103/66 05/19/23 10:10 Pulse Ox 95 05/19/23 10:10 O2 Del Method Room Air 05/19/23 10:10 Pertinent Lab Results Pertinent Lab Results: Lab Results 05/19/23 Range/Units 11:01 WBC 8.1 (4.8-10.8) X10*3/uL RBC 4.06 L (4.60-5.80) X10*6/uL Hgb 13.4 L (14.0-18.0) g/dl Hct 39.5 L (42.0-52.0) % MCV 97.3 (80.0-98.0) fL MCH 33.0 (27.0-33.0) pg MCHC 33.9 (31.0-36.0) g/dl RDW 15.5 (11.0-16.0) % Plt Count 183 (160-400) X10*3/uL MPV 9.4 (9.4-12.4) fL Absolute Nucleated RBC 0.000 (0.0-0.012) X10*3/uL Nucleated RBC % (auto) 0.0 (0.0-0.2) /100WBC Sodium 134 L (135-145) mmol/L Potassium 4.5 (3.3-5.1) mmol/L Chloride 103 (96-108) mmol/L Carbon Dioxide 21 L (22-29) mmol/L Anion Gap 15 (12-20) BUN 17 H (9-16) mg/dL Creatinine 1.40 (0.5-1.4) mg/dL Estim Creat Clear Calc 62.8 Estimated GFR 50 Random Glucose 121 H (60-115) mg/dL Calcium 10.1 (8.4-10.2) mg/dL Total Bilirubin 0.7 (0.0-1.0) mg/dL AST 16 (5-37) U/L ALT 17 (0-40) U/L Alkaline Phosphatase 79 (39-117) U/L Total Protein 7.6 (6.5-8.0) g/dL Albumin 4.4 (3.5-5.0) g/dL Narrative Narrative: EKG 04/2023 atrial fibrillation with nonspecific ST changes NM cardiolite stress test 04/2023 Impression: 1. Myocardial perfusion imaging study shows no ischemia but evidence of inferoapical infarct 2. Gated LVEF is 62% 3. Transient ischemic dilatation not present EKG is nondiagnostic for ischemia ECHO 04/2023 Conclusions: - The left ventricular systolic function is normal. The calculated ejection fraction is 68% by biplane method. - There is moderately increased left ventricular wall thickness. - The basal inferior and mid inferior segments are hypokinetic. - Severe biatrial enlargement. - There is severe calcification of the aortic valve. There is moderate aortic valve stenosis. - There is moderate mitral annular calcification. PFT 11/2022 Mild obstruction, No reversibility, No restriction and no decrease in diffusion Lung CT 07/2022 S/P RUL lobectomy New 4 mm RLL nodule as detailed above most likely represents an intrapulmonary node. Rec repeat 12 months. Airway Mallampati Class: III TM Dist: >3cm Neck ROM: Full Denture: Upper Loose/Missing/Broken Teeth: Yes (Missing lower teeth All stable per pt report) Heart: Irreg +M Lungs: CTAB Assessment and Plan Assessment Anesthesia Assessment: Anesthesia Plan Discussed and PAT Visit Final Anesthetic Review Family History of Problems with Anesthesia: No History of Problems with Anesthesia: No Documented by User: Dennis Huynh MD 06/03/23 11:41 [facility] Past Medical History Medical History COVID-19 Blindness of left eye History of eye prosthesis Thyroid disease GERD (gastroesophageal reflux disease) Numbness On beta patrick at home On anticoagulant therapy Murmur PVD (peripheral vascular disease) Myocardial infarction Atrial fibrillation Alcohol dependence Post laminectomy syndrome Asthma Renal stones XAVIER (obstructive sleep apnea) COPD (chronic obstructive pulmonary disease) Anemia Hepatitis C Hyperlipidemia HTN (hypertension) SVT (supraventricular tachycardia) CAD (coronary artery disease) Family History Family History Father Cancer Mother CVD (cardiovascular disease) Surgical History Surgical History Hx of eye surgery History of esophagogastroduodenoscopy (EGD) H/O colonoscopy S/P lobectomy of lung (~05/2021) Stented coronary artery Hx of thyroidectomy History of back surgery Hx of cardiac cath Social History Social History Are you a primary rn progressive care unit to a significant other at home: No Do you presently have visiting nurse or other home services: No Alcohol intake: current Alcohol intake frequency: 0-2 drinks per day Alcohol type: beer Patient Tobacco Use Status: Former Tobacco user Quit Date: 2009 Tobacco use type: Cigarette Cigarette Packs Per Day: 1 Use of substances other than those prescribed or required for medical reasons: Yes Substance Use Type: Marijuana Substance Use Frequency: Daily Have you been hit, kicked, punched, or otherwise hurt by someone within the past year? If so, by whom?: No Advance Directives: No Advance Directives Information Provided: Yes Advance Directives on File: No Recently lost weight without trying: No Eating poorly because of decreased appetite: No Poor oral hygiene: Yes (full upper denture, missing molars on the bottom both sides) Meds Allergies Allergy/AdvReac Type Severity Reaction Status Date / Time No Known Allergies Allergy Verified 04/17/23 11:34 [No Known Allergies*] Home Medications Medication Instructions Recorded Confirmed Last Taken Type famotidine 40 mg tablet 40 mg PO DAILY 04/12/20 05/19/23 06/03/23 History gabapentin 600 mg tablet 600 mg PO TID 04/12/20 05/19/23 06/03/23 History lisinopril 40 mg tablet 40 mg PO DAILY 04/12/20 05/19/23 06/03/23 History metoprolol tartrate 50 mg tablet 50 mg PO BID 04/12/20 05/19/23 06/03/23 History albuterol sulfate 90 mcg/actuation 2 puff inhalation QID PRN 10/26/22 05/19/23 06/03/23 History aerosol inhaler Shortness Of Breath Or Wheezing pramipexole 0.5 mg tablet 0.5 mg PO BEDTIME 10/26/22 05/19/23 06/03/23 History tramadol 50 mg tablet 50 mg PO Q6H PRN Pain 10/26/22 05/19/23 Unknown History acetaminophen 325 mg tablet 975 mg PO DAILY 05/19/23 06/03/23 06/03/23 08:00 History aspirin 81 mg tablet,delayed 81 mg PO DAILY 05/19/23 05/19/23 06/03/23 History release atorvastatin 40 mg tablet 40 mg PO DAILY 05/19/23 05/19/23 06/03/23 History cholecalciferol (vitamin D3) 25 25 mcg PO DAILY 05/19/23 05/19/23 Unknown History mcg (1,000 unit) capsule (Vitamin D3) cyanocobalamin (vitamin B-12) 500 500 mcg PO DAILY 05/19/23 05/19/23 Unknown History mcg tablet (Vitamin B-12) fluticasone fur. 200 mcg-umeclid 1 ea inhalation DAILY 05/19/23 05/19/23 06/03/23 History 62.5 mcg-vilant 25 mcg inhalat.powder (Trelegy Ellipta) ipratropium 0.5 mg-albuterol 3 mg 3 ml inhalation QID PRN Shortness 05/19/23 05/19/23 Unknown History (2.5 mg base)/3 mL nebulization Of Breath Or Wheezing soln magnesium oxide 400 mg PO DAILY 05/19/23 05/19/23 Unknown History Assessment and Plan Final Anesthetic Review NPO: Yes ASA Class: III Final Preanesthetic Review: No Changes in Pt Med Stat, Meds/Allgs Chart Reviewed, Consent Obtained/Reviewed and Anes Risks/Benef Reviewed Patient Risk: Intermediate Procedure Risk: Intermediate Assessment/Block/Sedation in SS: Assess/Block/Sedation-SS Anesthetic Plan Anesthetic Plan: GA Disposition: Standard PACU
[2023-05-19 11:28] LABS: Hematocrit 39.5 % (42.0-52.0); Hemoglobin 13.4 g/dl (14.0-18.0); Mean Corpuscular HGB Conc 33.9 g/dl (31.0-36.0); Mean Corpuscular Volume 97.3 fL (80.0-98.0); Mean Platelet Volume 9.4 fL (9.4-12.4); Platelet Count 183 X10*3/uL (160-400); Red Blood Count 4.06 X10*6/uL (4.60-5.80); Red Cell Distribution Width 15.5 % (11.0-16.0); White Blood Count 8.1 X10*3/uL (4.8-10.8)
[2023-05-19 12:10] LABS: Alanine Aminotransferase 17 U/L (0-40); Albumin Level 4.4 g/dL (3.5-5.0); Alkaline Phosphatase 79 U/L (39-117); Anion Gap 15 (12-20); Aspartate Amino Transferase 16 U/L (5-37); Bilirubin Total 0.7 mg/dL (0.0-1.0); Blood Urea Nitrogen 17 mg/dL (9-16); Calcium 10.1 mg/dL (8.4-10.2); Carbon Dioxide 21 mmol/L (22-29); Chloride 103 mmol/L (96-108); Creatinine Clr Calc Pharmacy 62.8; Estimated Glomerular Filt Rate 50; Glucose Random 121 mg/dL (60-115); Potassium 4.5 mmol/L (3.3-5.1); Sodium 134 mmol/L (135-145); Total Protein 7.6 g/dL (6.5-8.0)
[2023-06-03] VITALS (11 sets, daily range): BP systolic 108–145; BP diastolic 63–86; PULSE 70–84; RESP 12–20; TEMP 36.2–37; O2SAT 90–99; BMI 32.2
--- NOTE | ~2023-06-03 | FL_ITS ---
EXAMINATION: XR FLUOROSCOPY WITH IMAGES CLINICAL INFORMATION: Microlumbar discectomy. COMPARISON: Lumbar spine radiographs dated 03/05/2023. TECHNIQUE: Fluoroscopy Supervised By: Dr. Kolton Hendrickson. Fluoroscopy Time: 0.0 minutes. Cumulative Dose: 5.05 mGy. DAP: 1.37 Gycm2. Images: 2. FINDINGS: The submitted images show a probe situated posteriorly at the L5-S1 level. FL/FL guidance in OR IMPRESSION: Intraoperative fluoroscopy is provided during microlumbar discectomy. Please see the patient's Operative Report for full procedural details.
--- NOTE | 2023-06-03 07:41 | P.HPSUR_ITS ---
Pre-Procedural Eval Section A - 24 Hr Update-Section A only Date of Service: 06/03/23 The patient is an INPATIENT: No Changes since office visit: No Cold of Flu in the past 2 weeks, No New Medical Problems, No Changes in Medication and No Patient answered all questions The patient has been examined within 24 hours of the surgical procedure. The History & Physical has been completed within 30 days and I have reviewed it.: No Section B - Complete if H&P > 30 days Chief Complaint: Radiculopathy, lumbar region Allergies: Allergies Allergy/AdvReac Type Severity Reaction Status Date / Time No Known Allergies Allergy Verified 04/17/23 11:34 [No Known Allergies*] Review of Systems Sugical H&P ROS: Negative: Constitution, Cardiovascular, Respiratory, Neurological, Psychiatric, Hem-Onc, Allergic/Immunologic, Gastrointestinal, Genitourinary, Musculoskeletal, Integumentary, Endocrine and Eyes/Ears/No se/Throat Exam Surgical H&P Exam: Not Evaluated: HEENT, Not Evaluated: Heart, Not Evaluated: Lungs, Not Evaluated: Extremities, Not Evaluated: Abdomen, Not Evaluated: Skin and Not Evaluated: Neurological Plan Diagnosis/Plan: Unchanged Right L5-S1 microdiskectomy Time Spent With Patient Time: Total time managing care of this patient today __7__ minutes.
[2023-06-03] MEDS: Lactated Ringers 1,000 ML 100 ML IVCONT (10:57)
[2023-06-03] MEDS: methocarbamoL 750 MG TABLET PO (10:57)
--- NOTE | 2023-06-03 11:10 | PC.NURSE ---
MULTIPLE BRUISES NOTED TO ARMS AND HANDS B/L PATIENT STS FROM ASA AND ELIQUIS
--- NOTE | 2023-06-03 13:40 | W.PM.OPN ---
Operative Note Operative Note Date of Service: 06/03/23 Narrative: Preoperative Diagnosis: Spinal stenosis/lateral recess stenosis/neural foraminal stenosis Operation: Right L5 and S1 Laminotomy, Partial facetectomy and L5 foraminotomy with use of microscope Consent Informed Consent was obtained for this operation. I have explained the nature, purpose and benefits of the operation. I have discussed the risks and benefit of the operation including possible complications or adverse events with patient/family. Alternative(s) were discussed with the patient with their relative benefits and risks as well as the consequences of not accepting the operation were included in obtaining consent. Surgeon: BRICE DA SILVA MD, PHD Procedure Assisted By: ESHA Martinez Description of Procedure This 68-year-old male suffering from right lumbar radiculopathy. An MRI shows a right L5 neuroforaminal stenosis and L5-S1 lateral recess stenosis compressing the S1 nerve root. I offered him a decompression of the L5 and S1 nerve roots. The procedure complications were explained. The patient was consented. The patient was brought to the operating room and endotracheally intubated. The patient was turned in prone position on the Zeus frame. Prep and drape was done followed by timeout. Physician gynecological assistant provided access. A mid lumbar incision was made followed by release of the paravertebral muscle on the right side to expose the L5 and S1 lamina and facet joint. An intraoperative x-ray was obtained to confirm the correct level. The microscope was brought in. I took over the procedure. The high-speed drill was used to do a L5 laminotomy. #2 Kerrison was used to further remove the lamina towards the L5 foramen. With a nerve hook the medial wall of the L5 pedicle was palpated as well as the beginning of the L5 foramen. The facet joint was partially drilled down after which with a #2 Kerrison a foraminotomy was done. Finally a foraminotomy Kerrison was used to complete the foraminotomy. A long nerve hook could be easily passed lateral and dorsally from the nerve root, a sign of relief of the neuroforaminal stenosis and decompression of the nerve root . Then the L5-S1 disc space was identified and the S1 nerve root was decompressed over its trajectory going into the foramen with a 2. And 3 Kerrison. The microscope was removed. Hemostasis was done. Incision was closed in 2 layers. Steri-Strips were used to approximate incision. An OpSite with Tegaderm was used to cover the incision. All sponge needle counts were correct. Patient was extubated and transported in stable is to recovery room. Anesthesia: General Estimated Blood Loss (ml): 100 mL Duration of Surgery: Under 90 Minutes Postoperative Plan: Discharge to home
--- NOTE | 2023-06-03 13:48 | PM.DS ---
DS: Providers Provider Date of Service: 06/03/23 Primary care physician: Kojo Fermin MD DS: Summary Time Attestation Discharge Coordination Time (in mins): 15 Quality: Safe Use of Opioids Does Pt have an Active Cancer Diagnosis on the Problem List?: No Quality: Stroke Does the patient have a stroke diagnosis?: No Physical Exam Vital Signs: Vital Signs: Last Vital Signs Temp 98.6 F 06/03/23 10:36 Pulse 76 06/03/23 10:36 Resp 20 06/03/23 10:36 BP 145/86 H 06/03/23 10:36 Pulse Ox 97 06/03/23 10:36 O2 Del Method Room Air 06/03/23 10:36 BMI result Body Mass Index 32.2 Discharge Plan Discharge Patient Disposition: Home, Self-Care Referrals: Kojo eFrmin MD [Primary Care Provider] - 1 Week Discharge Medications: New oxycodone 5 mg tablet 5 mg PO Q6H PRN (Reason: severe pain (scale score 7-10)) Qty: 30 0RF Rx Instructions: Partial Fill upon patient request. Continued omega-3 acid ethyl esters 1 gram capsule 2 cap PO BID Qty: 90 3RF ranolazine [Ranexa] 500 mg tablet extended release 12 hr 500 mg PO BID 90 Days Qty: 180 3RF amlodipine 10 mg tablet 10 mg PO DAILY Qty: 90 3RF atorvastatin 40 mg tablet 40 mg PO DAILY aspirin 81 mg Tablet,Delayed Release (Dr/Ec) 81 mg PO DAILY cyanocobalamin (vitamin B-12) [Vitamin B-12] 500 mcg Tablet 500 mcg PO DAILY cholecalciferol (vitamin D3) [Vitamin D3] 25 mcg (1,000 unit) Capsule 25 mcg PO DAILY acetaminophen 325 mg Tablet 975 mg PO DAILY Patient Comments: TOOK 650MG [id number] Trelegy Ellipta 200-62.5-25 mcg blister with device 1 ea INHALATION DAILY ipratropium-albuterol 0.5 mg-3 mg(2.5 mg base)/3 mL Solution For Nebulization 3 ml INHALATION QID PRN (Reason: Shortness Of Breath Or Wheezing) magnesium oxide 400 mg magnesium Tablet 400 mg PO DAILY gabapentin 600 mg tablet 600 mg PO TID lisinopril 40 mg tablet 40 mg PO DAILY metoprolol tartrate 50 mg tablet 50 mg PO BID famotidine 40 mg tablet 40 mg PO DAILY albuterol sulfate 90 mcg/actuation HFA aerosol inhaler 2 puff inhalation QID PRN (Reason: Shortness Of Breath Or Wheezing) pramipexole 0.5 mg tablet 0.5 mg PO BEDTIME tramadol 50 mg tablet 50 mg PO Q6H PRN (Reason: Pain) Held Eliquis 5 mg tablet 5 mg PO BID Qty: 60 5RF Hold Instructions: Resume on 06/06/23. hold for 48 hours Discharge Orders: Discharge Order (Routine); Ordered 06/03/23 Ordered By: Homero Mcdonough Diet: Advance to usual diet Activity Restrictions/Additional Instructions: After your spinal surgery we ask you to observe the following restrictions/guidelines: Activity: It is normal to feel some discomfort as you increase your activity, but that will improve with time. We ask you avoid heavy lifting or acitivities that cause pain. As a general rule, 8lbs is a safe limit for lifting right after surgery. Walk as much as you feel comfortable but not to exhaustion. You will feel extra tired the first few days after surgery. Stay well hydrated. It is OK to walk up and down stairs You may return to driving when you are off narcotics (such as vicodin, oxycodone, dilaudid, etc), and you are back to normal functional capacity. If you have any concerns please check with office before driving. Return to work is specific to each patient and each surgery, so please speak with your doctor/PA at first follow up. Please bring paperwork such as FMLA at that time if you need it filled out. Medications: We will give you a short supply of narcotics after surgery (usually one weeks worth). If you need more please call the office but do not use more than prescribed. You will need to give our office 48 hours notice if you need narcotics refilled and we do not fill narcotics on weekends or evenings. If you are on a narcotic, it is a good idea to take a stool softener such as colace or senna to avoid constipation If you take blood thinner such as aspirin, Plavix, Coumadin, Effient, Eliquis etc for conditions such as Afib, DVT, Pulmonary embolus, coronary disease, stents etc please speak with your surgeon about specific details as to when you can resume these medications. You can resume NSAIDs on post op day 1 (eg: Motrin, Naproxen, etc). Follow up: Please call the office, , after surgery to arrange a 3 week follow up for wound check. Wound Care: You may remove your dressing on the first day after surgery. ?You may ?leave open to air. Please do not remove the steri strips underneath. they will fall off on their own in one week. IT IS NORMAL FOR THE WOUND TO OOZE OR BE BLOODY FOR A FEW DAYS AFTER SURGERY. ?IF THIS HAPPENS JUST PLACE NEW DRESSING OVER IT TO AVOID STAINING CLOTHES. You may shower on post op day # 1 We ask that you do not let the water soak the wound. If it does get wet, just towel dry lightly. Please do not scrub your incision or place any type of chemical/ointment on the wound. No tub baths, pools or jacuzzis for one month. If you have any leaking or redness from your wound, or fevers, please call the office.
[2023-06-03] MEDS: HYDROmorphone HCl 0.5 MG/0.5 ML SYRINGE IVPUSH (14:31)
== END 2023-06-03 16:18 | disposition home or self-care (01) ==
PROVIDERS: Nurse Practitioner; PCP Internal Medicine; Visit Provider Neurological Surgery
PROC: (CPT 63047; principal; 2023-06-03 14:00)
DX: M54.16 Radiculopathy, lumbar region (principal); M48.061 Spinal stenosis, lumbar region without neurogenic claudication; G89.29 Other chronic pain; M96.1 Postlaminectomy syndrome, not elsewhere classified; M54.50 Low back pain, unspecified; D64.9 Anemia, unspecified; I48.19 Other persistent atrial fibrillation; I10 Essential (primary) hypertension; I47.10 Supraventricular tachycardia, unspecified; J44.9 Chronic obstructive pulmonary disease, unspecified; G47.33 Obstructive sleep apnea (adult) (pediatric); I25.10 Atherosclerotic heart disease of native coronary artery without angina pectoris; Z95.5 Presence of coronary angioplasty implant and graft; I35.0 Nonrheumatic aortic (valve) stenosis; I25.2 Old myocardial infarction; Z79.1 Long term (current) use of non-steroidal anti-inflammatories (NSAID); Z79.51 Long term (current) use of inhaled steroids; Z79.01 Long term (current) use of anticoagulants; Z79.899 Other long term (current) drug therapy
CPT/HCPCS: 63047; 36415; 80053; 85027; 93306; J0131; J0690; J1170; J2250; J2598; J3010; Q9957

== ENCOUNTER → 2023-06-03 10:33 | Outpatient (BNV) | payer MEDICARE, MEDICAID, SELFPAY | PROVIDERS: PCP Internal Medicine; Visit Provider Neurological Surgery | DX: M48.062 Spinal stenosis, lumbar region with neurogenic claudication (principal) | CPT/HCPCS: 63047; 99499 ==

== ENCOUNTER 2023-06-25 09:23 | Outpatient (AMB) | payer MEDICARE, MEDICAID, SELFPAY ==
--- NOTE | 2023-06-25 09:26 | HO.SPINEOV ---
Intake Intake Visit Reasons: 1st post op Intake Note: Mr. Nichole is here for his 1st post-op. Surgical Services Coordinator Required: No Allergies No Known Allergies [No Known Allergies*] Allergy (Verified 06/25/23 09:27) Do you need a note to return to daycare/school/sports/work: No Assessment & Plan Assessment & Plan (1) S/P spinal surgery: Code(s): Z98.890 - Other specified postprocedural states Plan Procedure: Right L5 and S1 Laminotomy, Partial facetectomy and L5 foraminotomy Shane comes in today for his 1st postoperative visit. Unfortunately, since his surgery he has experienced essentially the same pain as he had prior to surgery. When describing the pain he runs his hand over his right leg in an L5 dermatomal distribution. The first few days after surgery he did feel better, but after returning to regular activity he began experiencing very similar if not worse pain in his right leg. He is currently taking narcotic pain medication, Tylenol, and gabapentin with only minimal relief of his symptoms. No new neurological deficits. Patient is able to ambulate well, rises from a seated position without difficulty. Posterior incision site is closed, well healing, with no signs of drainage. We will follow up with the patient in 2 weeks to evaluate for inflammation reduction. May consider referral for right sided L5 nerve root injection to reduce symptoms from postoperative inflammation. Homero Hendrickson MD,PhD [facility] Coding Level of Care Code Global (50404) Diagnoses S/P spinal surgery Z98.890
== END 2023-06-25 09:38 | disposition home or self-care (01) ==
PROVIDERS: PCP Internal Medicine; Visit Provider Physician Assistant
DX: Z98.890 Other specified postprocedural states (principal)
CPT/HCPCS: 99024

== ENCOUNTER → 2023-06-25 09:23 | Outpatient (BNVA) | payer MEDICARE, MEDICAID, SELFPAY | PROVIDERS: PCP Internal Medicine; Visit Provider Physician Assistant | DX: Z48.89 Encounter for other specified surgical aftercare (principal); Z98.890 Other specified postprocedural states | CPT/HCPCS: 99212 ==

== ENCOUNTER 2023-07-01 08:43 | Outpatient (AMB) | payer MEDICARE, MEDICAID, SELFPAY ==
--- NOTE | 2023-07-01 08:46 | A.OFFVIS_ITS ---
Intake Vital Signs 07/01/23 08:47 Height 6 ft Weight 238 lb 1.588 oz BMI 32.3 BP 120/80 Blood Pressure Location Lt brachial Position Sitting Pulse 69 Intake Visit Reasons: f/up w/ ekg Intake Note: Follow-up with ekg hurts doing ok Bucket Turner Required: No Allergies No Known Allergies [No Known Allergies*] Allergy (Verified 06/25/23 09:27) Medication List - Last Reconciled 07/01/23 by Danilo mE MD acetaminophen 975 mg PO DAILY albuterol sulfate 90 mcg/actuation 2 puffs inhalation QID PRN amlodipine 10 mg PO DAILY apixaban (Eliquis) 5 mg PO BID aspirin 81 mg PO DAILY atorvastatin 40 mg PO DAILY cholecalciferol (vitamin D3) (Vitamin D3) 25 mcg PO DAILY cyanocobalamin (vitamin B-12) (Vitamin B-12) 500 mcg PO DAILY famotidine 40 mg PO DAILY hutfkcgpcge-zazmagkjm-vjutwkra 200-62.5-25 mcg (Trelegy Ellipta) 1 ea inhalation DAILY gabapentin 600 mg PO TID ipratropium-albuterol 0.5 mg-3 mg(2.5 mg base)/3 mL 3 mL inhalation QID PRN lisinopril 40 mg PO DAILY metoprolol tartrate 50 mg PO BID omega-3 acid ethyl esters 2 caps PO BID oxycodone 5 mg PO Q8H PRN pramipexole 0.5 mg PO BEDTIME ranolazine ER (Ranexa) 500 mg PO BID 90 days tramadol 50 mg PO Q6H PRN HPI HPI Comments History of Present Illness Details Shane comes for follow-up. He underwent spine surgery but has not more pain is right lower extremity. He is scheduled to see spine surgery on 07/09/2023. Further treatment based on the findings of his clinical exam. Not sure if further interventions required at this point time. Patient continues to have shortness of breath although 1 episode of shortness of breath at rest at nighttime responded to bronchodilators therapy. His most likely suggestive of COPD. He has not having any other significant orthopnea, PND, leg edema but continues to have exertional shortness of breath. No chest pain. Tolerating his medications. He said he started his oral anticoagulation therapy about a month ago. [facility] Medical History COVID-19 Blindness of left eye History of eye prosthesis Thyroid disease GERD (gastroesophageal reflux disease) Numbness On beta patrick at home On anticoagulant therapy Murmur PVD (peripheral vascular disease) Myocardial infarction Atrial fibrillation Alcohol dependence Post laminectomy syndrome Asthma Renal stones XAVIER (obstructive sleep apnea) COPD (chronic obstructive pulmonary disease) Anemia Hepatitis C Hyperlipidemia HTN (hypertension) SVT (supraventricular tachycardia) CAD (coronary artery disease) Surgical History Hx of eye surgery History of esophagogastroduodenoscopy (EGD) H/O colonoscopy S/P lobectomy of lung (~05/2021) Stented coronary artery Hx of thyroidectomy History of back surgery Hx of cardiac cath Family History Father Cancer Mother CVD (cardiovascular disease) Social History Are you a primary pulmonary care nurse to a significant other at home: No Do you presently have visiting nurse or other home services: No Alcohol intake: current Alcohol intake frequency: 0-2 drinks per day Alcohol type: beer Patient Tobacco Use Status: Former Tobacco user Quit Date: 2009 Tobacco use type: Cigarette Cigarette Packs Per Day: 1 Substance Use Type: Marijuana Review of Systems Const Denies chills, Denies fatigue, Denies fever(s), Denies frequent falls, Denies weakness, Denies weight gain and Denies weight loss ENT Denies dizziness Card Denies chest pain, Denies leg edema, Denies lightheadedness, Denies palpitations, Denies dyspnea, Denies dyspnea on exertion, Denies orthopnea and Denies other (loss of consciousness) Resp Denies cough, Denies dyspnea and Denies dyspnea on exertion GI Denies hematochezia and Denies change in stool character Musc Denies abnormal gait, Denies muscle weakness, Denies numbness, Denies radiating pain into limb and Denies tingling Neuro Denies abnormal gait, Denies dizziness, Denies frequent falls, Denies numbness, Denies tingling and Denies weakness Endo Denies fatigue and Denies palpitations Physical Exam Vital Signs: Last Vital Signs Pulse 69 07/01/23 08:47 BP 120/80 04/11/24 08:47 BMI result Body Mass Index 32.3 Const General: cooperative, comfortable, no acute distress, alert and awake Nutritional Appearance: overweight Orientation/consciousness: patient oriented x3 Limitations: no limitations Neck Neck: Yes trachea midline, Yes supple and Yes no JVD Carotids: no bruits Resp Effort & Inspection: normal respiratory effort Auscultation: clear to auscultation bilaterally and diminished lung sounds Cardio Jugular venous distension: no JVD Palpation: normal PMI Rate: regular rate Rhythm: abnormal rhythm irregularly irregular Heart sounds: S1 normal heart sound present, S2 normal heart sound present, no click, no gallops and Murmur heart sound present systolic mid, decrescendo and crescendo GI Auscultation: normal bowel sounds Skin General skin exam: no rashes or lesions noted Neuro General: patient oriented x3 and no focal motor deficits Extrem General: Yes no clubbing, cyanosis or edema Psych Appearance: grossly normal Office Procedures EKG Details: EKG shows atrial fibrillation with controlled ventricular response at 69 beats per minute poor R-wave progression [id number], Complete Assessment & Plan Assessment & Plan (1) Persistent atrial fibrillation: Code(s): I48.19 - Other persistent atrial fibrillation Plan: Persistent and possibly symptomatic atrial fibrillation although he is significantly limited with his symptoms currently related to his sciatica in his right leg. Scheduled to see spine surgery in future. Not sure further interventions required which may require interruption is oral anticoagulation use. Will therefore await consultation with spine surgery in near future. If no further interventions are required or planned that will pursue synchronized cardioversion. This was discussed with him. Will require antiarrhythmic drug therapy with Multaq 2 days prior to cardioversion. Discuss that he can not have interruption of his anticoagulation 3-4 weeks prior to cardioversion and 6 weeks post cardioversion to reduce risk of stroke. He understands agrees. Continue current rate control therapy. Continue current oral anticoagulation with Eliquis. (2) CAD (coronary artery disease): Code(s): I25.10 - Atherosclerotic heart disease of [place] coronary artery without angina pectoris Plan: CAD with prior RCA stenting. Currently no symptoms related to it. Symptoms limited due to his back pain. Continue aggressive risk factor modification. Continue aggressive blood pressure treatment with currently well optimized blood pressure. Continue current therapy. Continue high-intensity statin therapy with target goal LDL less than 70 mg/dL. Will follow up tentatively in 2 month's time. Coding Level of Care Code Est Pt Level 4 (22938) Diagnoses Persistent atrial fibrillation I48.19 CAD (coronary artery disease) I25.10 CPT Codes EKG - CPT: 61343-[id number], Complete ([id number])
[2023-07-01 08:47] VITALS: BP 120/80; PULSE 69; BMI 32.3
== END 2023-07-01 09:17 | disposition home or self-care (01) ==
PROVIDERS: PCP Internal Medicine; Visit Provider Internal Medicine Cardiovascular Disease
DX: I48.19 Other persistent atrial fibrillation (principal); I25.10 Atherosclerotic heart disease of native coronary artery without angina pectoris
CPT/HCPCS: 93010; 99214

== ENCOUNTER → 2023-07-01 08:43 | Outpatient (BNVA) | payer MEDICARE, MEDICAID, SELFPAY | PROVIDERS: PCP Internal Medicine; Visit Provider Internal Medicine Cardiovascular Disease | DX: I48.19 Other persistent atrial fibrillation (principal); I25.10 Atherosclerotic heart disease of native coronary artery without angina pectoris; I10 Essential (primary) hypertension; Z79.01 Long term (current) use of anticoagulants; Z98.890 Other specified postprocedural states | CPT/HCPCS: 93005; 99212 ==

== ENCOUNTER 2023-07-06 15:00 | Outpatient (AMB) | payer MEDICARE, MEDICAID, SELFPAY ==
--- NOTE | 2023-07-06 15:02 | MHC.OFFVIS ---
Intake Vital Signs 07/06/23 15:04 Height 6 ft Weight 238 lb BMI 32.3 Intake Visit Reasons: 3 mth fu Intake Note: 3 mo follow up s/p Left LE Angio 03/17/23, pt had lumbar microdiskectomy since last visit. Pts Right LE is very painful due to sciatic nerve issue, Left LE cramping worse. Accompanied by: Self / Same As Patient Allergies No Known Allergies [No Known Allergies*] Allergy (Verified 07/06/23 15:07) HPI 3 mth fu HPI Details Very pleasant 68-year-old gentleman presents for follow-up evaluation regarding his left lower extremity. He actually most recently on 06/03/2023 underwent right L5 and S1 laminectomy with Dr. Hendrickson. He reports he did well with the surgery but continues to have pain down the right leg due to his sciatic nerve. He does have a scheduled follow-up with Neurosurgery this Wednesday for possible steroid injections. He does have a fair amount of pain. He is not back to ambulating to full strength on that right lower extremity. Does have PA D on the left lower extremity and will require fem-pop bypass on that leg. [facility] Medical History COVID-19 Blindness of left eye History of eye prosthesis Thyroid disease GERD (gastroesophageal reflux disease) Numbness On beta patrick at home On anticoagulant therapy Murmur PVD (peripheral vascular disease) Myocardial infarction Atrial fibrillation Alcohol dependence Post laminectomy syndrome Asthma Renal stones XAVIER (obstructive sleep apnea) COPD (chronic obstructive pulmonary disease) Anemia Hepatitis C Hyperlipidemia HTN (hypertension) SVT (supraventricular tachycardia) CAD (coronary artery disease) Surgical History Hx of eye surgery History of esophagogastroduodenoscopy (EGD) H/O colonoscopy S/P lobectomy of lung (~05/2021) Stented coronary artery Hx of thyroidectomy History of back surgery Hx of cardiac cath Family History Father Cancer Mother CVD (cardiovascular disease) Social History Are you a primary foster care therapist to a significant other at home: No Do you presently have visiting nurse or other home services: No Alcohol intake: current Alcohol intake frequency: 0-2 drinks per day Alcohol type: beer Patient Tobacco Use Status: Former Tobacco user Quit Date: 2009 Tobacco use type: Cigarette Cigarette Packs Per Day: 1 Substance Use Type: Marijuana Review of Systems Const All systems reviewed & are unremarkable except as noted in HPI and below Reports no additional complaints ENT Reports Normal hearing present Card Denies chest pain, Denies chest pain at rest, Denies chest pain with activity and Denies pedal edema Resp Denies cough GI Denies abdominal pain Musc Denies abnormal gait, Denies muscle cramps and Denies radiating pain into limb Skin/Breast Denies skin ulcer and Denies wounds Neuro Reports Normal hearing present and Denies abnormal gait Psych Reports no additional complaints Physical Exam Vital Signs: BMI result Body Mass Index 32.3 Const General: cooperative, healthy appearing and comfortable Orientation/consciousness: oriented to person, oriented to place and oriented to time HEENT Head: Yes normal to inspection Neck Neck: Yes normal visual inspection Carotids: no bruits Chest Chest palpation & inspection: normal inspection of the chest Resp Effort & Inspection: normal respiratory effort and able to speak in complete sentences Auscultation: clear to auscultation bilaterally, no crackles, no rales, no rhonchi and no wheezes Cardio Other: Bilateral DP signals Rate: regular rate Rhythm: regular rhythm Heart sounds: S1 normal heart sound present and S2 normal heart sound present Bruits: no carotid bruits Peripheral pulses: Peripheral pulses 2+ throughout GI Inspection: Yes normal to inspection Skin Wounds: no wounds Hair: normal Neuro General: oriented to person, oriented to place and oriented to time Cranial nerves: Yes CN's II-XII intact bilaterally and Yes Normal hearing present Cognition (Neuro): normal cognition Motor exam (neuro): 5/5 motor strength present throughout Extrem Other: venous exam: No significant superficial varicosities or spider telangiectasias, minimal edema General: No clubbing, No cyanosis and No edema Psych Appearance: grossly normal Mental Status: mental status grossly normal Speech and movement: Normal speech and movement present Assessment & Plan Assessment & Plan (1) PAD (peripheral artery disease): Comment: 03/17/2023 - diagnostic angiogram Code(s): I73.9 - Peripheral vascular disease, unspecified Plan: In short patient will require left-sided fem-pop bypass. Is still recovering from his orthopedic surgery. I would like his right leg to be at full strength before I operated on the left leg cut that will incapacitated his left leg for period of time. I did discuss this with the patient and he is hopeful with the steroid injections he will do much better. I did schedule him for routine follow-up in approximately 3 months time. We did discuss routine risk factor modification and also importance of ambulation. Thank you for allowing us to assist in his care. Coding Level of Care Code Est Pt Level 4 (46966) Diagnoses PAD (peripheral artery disease) I73.9
[2023-07-06 15:04] VITALS: BMI 32.3
== END 2023-07-06 15:35 | disposition home or self-care (01) ==
PROVIDERS: PCP Internal Medicine; Visit Provider Surgery Vascular Surgery
DX: I73.9 Peripheral vascular disease, unspecified (principal)
CPT/HCPCS: 99214

== ENCOUNTER → 2023-07-06 15:00 | Outpatient (BNVA) | payer MEDICARE, MEDICAID, SELFPAY | PROVIDERS: PCP Internal Medicine; Visit Provider Surgery Vascular Surgery | DX: I73.9 Peripheral vascular disease, unspecified (principal) | CPT/HCPCS: 99212 ==

== ENCOUNTER 2023-07-09 10:41 | Outpatient (AMB) | payer MEDICARE, MEDICAID, SELFPAY ==
--- NOTE | 2023-07-09 10:45 | A.SPINEOV_ITS ---
Intake Visit Reasons: 2wk f/u for post op healing Intake Note: Mr. Nichole is here today for his 2week f/u post-op/healing. 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 To recap he continues to complain of a severe right-sided L5 radiculopathy, but also reports symptoms that are shooting down the posterior aspect of his entire right leg as well, terminating near the ankle. After reviewing his previous office notes, there was some discussion that was made re garding potential fusion given the severity of his MRI. I believe Dr. Hendrickson shows the more conservative approach via a decompression surgery. On review of his preoperative MRI at [place] he is noted to have a severely collapsed disc at L3-4 with retrolisthesis, severely collapsed disc at L4-5 and L5-S1 with foraminal stenosis on the right side. No new neurological deficits. Full strength 5/5 in the bilateral lower extremities, however the patient does elicit pain to knee flexion on the right. Bilateral patellar reflexes are 1+ hypoactive. Patient is able to ambulate well, rises from a seated position without much difficulty. Incision site is closed, well healing, with no signs of drainage. Initially when discussing the patient's symptoms I had recommended that he follow-up with pain management for evaluation of a right-sided L5 nerve block, however after reviewing previous office visit notes and imaging, I think it mariscal to bring the patient back in on a day when Dr. Hendrickson is here to discuss the possibility of fusion. It is very possible that Dr. Hendrickson will decide to continue forward with conservative management instead of a subsequent surgery, but I do believe this should be discussed. In the interim I will be ordering a repeat MRIs the patient has a worsening and progressive lumbar radiculopathy that is not resolving even with 6 weeks of rest/stretching/gentle [id number] exercise and medication management since surgery. Homero Hendrickson MD,PhD [facility] Orders: Orders MR lumbar spine wo con Today M54.16 - Radiculopathy, lumbar region
== END 2023-07-09 12:06 | disposition home or self-care (01) ==
PROVIDERS: PCP Internal Medicine; Visit Provider Physician Assistant
DX: Z98.890 Other specified postprocedural states (principal)
CPT/HCPCS: 99024

== ENCOUNTER → 2023-07-09 10:41 | Outpatient (BNVA) | payer MEDICARE, MEDICAID, SELFPAY | PROVIDERS: PCP Internal Medicine; Visit Provider Physician Assistant | DX: Z48.89 Encounter for other specified surgical aftercare (principal); Z98.890 Other specified postprocedural states | CPT/HCPCS: 99212 ==

== ENCOUNTER 2023-07-14 09:11 | Outpatient (REF) | payer MEDICARE, MEDICAID, SELFPAY ==
[2023-07-14 09:35] LABS: MANUAL DIFF FLAG NO
[2023-07-14 09:54] LABS: Basophils Absolute Auto 0.1 X10*3/uL (0.0-0.2); Basophils Percent Auto 1.4 % (0-2); Eosinophils Absolute Auto 0.1 X10*3/uL (0.0-0.4); Eosinophils Percent Auto 2.1 % (0-4); Hematocrit 37.9 % (42.0-52.0); Hemoglobin 12.8 g/dl (14.0-18.0); Imm Gran Abs Auto 0.14 X10*3/uL (0.00-0.03); Imm Gran Pct Auto 2.3 % (0.0-0.4); Lymphocytes Absolute Auto 1.6 X10*3/uL (1.2-4.9); Lymphocytes Percent Auto 25.8 % (20-40); Mean Corpuscular HGB Conc 33.8 g/dl (31.0-36.0); Mean Corpuscular Hemoglobin 32.1 pg (27.0-33.0); Mean Platelet Volume 9.2 fL (9.4-12.4); Monocytes Percent Auto 15.5 % (2-11); Neutrophils Absolute Auto 3.3 x10*3/uL (2.0-8.3); Neutrophils Percent Auto 52.9 % (45-73); Platelet Count 199 X10*3/uL (160-400); Red Blood Count 3.99 X10*6/uL (4.60-5.80); Red Cell Distribution Width 13.6 % (11.0-16.0); White Blood Count 6.2 X10*3/uL (4.8-10.8)
[2023-07-14 11:35] LABS: Vitamin B12 521 pg/mL (200-900)
[2023-07-15 13:18] LABS: Prot Elec - Albumin 4.1 g/dL (3.8-4.8); Prot Elec - Alpha1 0.4 g/dL (0.2-0.3); Prot Elec - Beta 1 0.5 g/dL (0.4-0.6); Prot Elec - Beta 2 0.4 g/dL (0.2-0.5); Prot Elec - Gamma 0.7 g/dL (0.8-1.7); Prot Elec - Total Protein 7.2 g/dL (6.1-8.1)
== END 2023-07-14 09:12 | disposition home or self-care (01) ==
LOC: HO.LAB 09:11
PROVIDERS: PCP Internal Medicine; Visit Provider Internal Medicine
DX: R76.8 Other specified abnormal immunological findings in serum (principal); E53.8 Deficiency of other specified B group vitamins; M48.00 Spinal stenosis, site unspecified; Z98.890 Other specified postprocedural states
CPT/HCPCS: 36415; 82607; 84165; 85025; 99212

== ENCOUNTER 2023-07-14 09:39 | Outpatient (AMB) | payer MEDICARE, MEDICAID, SELFPAY ==
--- NOTE | 2023-07-14 10:01 | A.SPINEOV_ITS ---
Intake Visit Reasons: discuss surgical options Intake Note: Mr. Nichole is here to discuss surgical options. Nitroglycerin Neutralizer Required: No Allergies No Known Allergies [No Known Allergies*] Allergy (Verified 07/14/23 10:01) Assessment & Plan Assessment & Plan (1) S/P spinal surgery: Code(s): Z98.890 - Other specified postprocedural states Category: Surgical (2) Spinal stenosis: Code(s): M48.00 - Spinal stenosis, site unspecified Category: Medical Plan Ag comes in today as a follow-up after our last visit to discuss the potential for further surgeries. To recap when he was initially evaluated by Dr. Hendrickson he was informed that if he fails the more conservative surgeries he may need subsequent lumbar fusion surgery to address the disc degeneration and foraminal stenosis that has occurred and can be seen on his imaging. Unfortunately Shane continues to have symptoms of severe stenosis and degeneration. His right-sided leg pain is severe in nature and shoots over the anterior and posterior aspect of his right thigh down the back of his right leg terminating near his right calf. The patient was evaluated alongside Dr. Hendrickson today, and we reviewed his preoperative MRI. Dr. Hendrickson discussed the possibility of a 3 level fusion from L3-S1, as a way to address his severe degenerative disc disease seen on MRI. We will be obtaining a CT scan of the lumbar spine to evaluate for foraminal patency and bone quality. We also would like to see what is anatomy looks like postoperatively so the best possible surgical decision can be made. We will follow back up with Ag after his CT scan is complete. Homero Hendrickson MD,PhD [facility] Coding Level of Care Code Global (46445) Diagnoses S/P spinal surgery Z98.890 Spinal stenosis M48.00
== END 2023-07-14 11:44 | disposition home or self-care (01) ==
PROVIDERS: PCP Internal Medicine; Visit Provider Physician Assistant
DX: Z98.890 Other specified postprocedural states (principal); M48.00 Spinal stenosis, site unspecified
CPT/HCPCS: 99024

== ENCOUNTER 2023-07-19 13:25 | Outpatient (REF) | payer MEDICARE, MEDICAID, SELFPAY ==
--- NOTE | ~2023-07-19 | CT_ITS ---
MRI OF THE LUMBAR SPINE WITHOUT CONTRAST CT OF THE LUMBAR SPINE WITHOUT CONTRAST CLINICAL INFORMATION: Spinal stenosis. Lumbar region radiculopathy. COMPARISON: Lumbar spine radiographs 03/01/2023. TECHNIQUE: Multiplanar multisequence MR imaging of the lumbar spine obtained without contrast. Additionally, a noncontrast CT of the lumbar spine is obtained. This CT examination was performed using dose optimization techniques as appropriate, variously including the following: *Automated exposure control *Adjustment of mA and/or kV according to patient size (this includes techniques or standardized protocols for targeted exams where dose is matched to indication/reason for exam; i.e. extremities or head) *Use of iterative reconstruction technique FINDINGS: There are 5 nonrib-bearing lumbar-type vertebral bodies. Grade 1 degenerative anterolisthesis of L5 on S1. Grade 1 retrolisthesis of L2 on L3 and L3 on L4. No acute fractures. No bone marrow edema. Modic type II endplate signal changes at L4-L5. Moderate disc volume loss and vacuum phenomenon at L3-L4, L4-L5, and L5-S1. There is also disc desiccation at L2-L3. Vertebral body heights are overall maintained. Multilevel endplate osteophytes. Conus terminates at the L1-L2 level. There are bilateral renal cysts. There is paraspinal muscular atrophy bilaterally. There is extensive aortoiliac atherosclerotic calcification. Sigmoid diverticulosis. L1-L2: Small annular disc bulge and mild bilateral facet arthropathy. No central canal stenosis and no foraminal stenosis. L2-L3: Grade 1 retrolisthesis. There is a diffuse annular disc bulge with a superimposed shallow left paracentral disc protrusion that along with epidural lipomatosis results in mild central canal stenosis. There is no foraminal stenosis. L3-L4: Grade 1 retrolisthesis. There is severe bilateral facet arthropathy and ligamentum flavum thickening. Epidural lipomatosis. Findings in concert result in moderate to severe central canal stenosis, bilateral subarticular zone stenosis with mass effect on the traversing L4 nerve roots bilaterally, and moderate to severe bilateral foraminal stenosis with mass effect on the exiting L3 nerve roots bilaterally. L4-L5: Laminectomy changes. Diffuse disc osteophyte complex along with severe bilateral facet arthropathy and ligamentum flavum thickening as well as epidural lipomatosis result in moderate to severe thecal sac effacement/central canal stenosis as well as moderate to severe right and moderate left foraminal stenosis with mass effect on the exiting right greater than left L4 nerve roots. L5-S1: Right hemilaminectomy changes. Grade 1 degenerative anterolisthesis with uncovered disc and a superimposed diffuse annular disc bulge. Diffuse annular disc bulge and severe bilateral facet arthropathy, ligamentum flavum thickening, and epidural lipomatosis result in severe thecal sac effacement/central canal stenosis and severe bilateral foraminal stenosis with compression of the exiting L5 nerve roots bilaterally. Epidural lipomatosis also severely narrows the sacral thecal sac at and below S1. CT/CT lumbar spine wo IV con IMPRESSION: - At L5-S1, there are laminectomy changes and grade 1 degenerative anterolisthesis along with spondylitic changes and epidural lipomatosis result in severe thecal sac effacement/central canal stenosis and severe bilateral foraminal stenosis with compression of the exiting L5 nerve roots bilaterally. Epidural lipomatosis also severely narrows the sacral thecal sac at and below S1. - At L4-L5, there are laminectomy changes and multifactorial degenerative changes along with epidural lipomatosis result in moderate to severe thecal sac effacement/central canal stenosis as well as moderate to severe right and moderate left foraminal stenosis with mass effect on the exiting right greater than left L4 nerve roots. - At L3-L4, grade 1 retrolisthesis, multifactorial degenerative changes, and epidural lipomatosis result in moderate to severe thecal sac effacement/central canal stenosis, bilateral subarticular zone stenosis with mass effect on the traversing L4 nerve roots bilaterally, and moderate to severe bilateral foraminal stenosis with mass effect on the exiting L3 nerve roots bilaterally. - There is extensive aortoiliac atherosclerotic calcification. - Paraspinal muscular atrophy bilaterally. - Sigmoid diverticulosis and bilateral simple renal cysts for which no further imaging follow-up is warranted.
== END 2023-07-19 13:26 | disposition home or self-care (01) ==
LOC: HO.CT 13:25
PROVIDERS: PCP Internal Medicine; Visit Provider Physician Assistant
DX: M48.00 Spinal stenosis, site unspecified (principal)
CPT/HCPCS: 72132

== ENCOUNTER 2023-07-21 12:11 | Day surgery (SDC) | payer MEDICARE, MEDICAID, SELFPAY ==
--- NOTE | 2023-07-19 14:09 | HO.ANESPROP2 ---
Documented by User: Viry Soler NP 07/19/23 14:11 HPI - Anesthesia Eval Consult details Narrative: 68yo M for Cardioversion s/p microdiscectomy 06/04/23 with GA-ETT 8 From preop anesthesia consult: Pulmo optimized. Cardiac optimized No recent illness No CP/SOB with helpin friend move Eliquis for afib (new onset 03/2023). OK to hold per cardiology CAD/Stemi s/p stent 2018 Aortic stenosis. Moderate by 04/2023 echo ETOH: 3-4 nightly. Will gradually decrease to one nightly s/p RUL lobectomy 03/2021 (non-cancerous) COPD/Asthma. Stable. Trelegy daily. Duoneb QAM. Albuterol ~ 1 x weekly Hx Hep C s/p treatment GERD. H2 patrick controls PMFSH Active Problems Active Problems: All Active Problems Spinal stenosis (Acute) S/P spinal surgery (Acute) Aortic stenosis (Acute) Persistent atrial fibrillation (Acute) COVID (Acute) PAD (peripheral artery disease) (Acute) Back pain (Acute) Lumbar radiculopathy (Acute) Lumbar spondylosis (Acute) Post laminectomy syndrome (Acute) Alcohol dependence (Acute) CAD (coronary artery disease) (Acute) SVT (supraventricular tachycardia) (Acute) HTN (hypertension) (Acute) Hyperlipidemia (Acute) Past Medical History Medical History COVID-19 Blindness of left eye History of eye prosthesis Thyroid disease GERD (gastroesophageal reflux disease) Numbness On beta patrick at home On anticoagulant therapy Murmur PVD (peripheral vascular disease) Myocardial infarction Atrial fibrillation Alcohol dependence Post laminectomy syndrome Asthma Renal stones XAVIER (obstructive sleep apnea) COPD (chronic obstructive pulmonary disease) Anemia Hepatitis C Hyperlipidemia HTN (hypertension) SVT (supraventricular tachycardia) CAD (coronary artery disease) Family History Family History Father Cancer Mother CVD (cardiovascular disease) Family history of problems with anesthesia: No Surgical History Surgical History Hx of eye surgery History of esophagogastroduodenoscopy (EGD) H/O colonoscopy S/P lobectomy of lung (~05/2021) Stented coronary artery Hx of thyroidectomy History of back surgery Hx of cardiac cath History of Problems with Anesthesia: No Social History Social History Are you a primary body care manager to a significant other at home: No Do you presently have visiting nurse or other home services: No Alcohol intake: current Alcohol intake frequency: 0-2 drinks per day Alcohol type: beer Patient Tobacco Use Status: Former Tobacco user Quit Date: 2009 Tobacco use type: Cigarette Cigarette Packs Per Day: 1 Use of substances other than those prescribed or required for medical reasons: Yes Substance Use Type: Marijuana Are you DNR?: No Advance Directives: No Advance Directives Information Provided: Yes Meds Allergies Allergy/AdvReac Type Severity Reaction Status Date / Time No Known Allergies Allergy Verified 07/14/23 10:01 [No Known Allergies*] Home Medications ?Medication ?Instructions ?Recorded ?Confirmed ?Last Taken ?Type famotidine 40 mg tablet 40 mg PO DAILY 04/12/20 07/21/23 06/03/23 History gabapentin 600 mg tablet 600 mg PO TID 04/12/20 07/21/23 06/03/23 History lisinopril 40 mg tablet 40 mg PO DAILY 04/12/20 07/21/23 06/03/23 History metoprolol tartrate 50 mg tablet 50 mg PO BID 04/12/20 07/21/23 06/03/23 History albuterol sulfate 90 mcg/actuation 2 puff inhalation QID PRN 10/26/22 07/21/23 06/03/23 History aerosol inhaler Shortness Of Breath Or Wheezing pramipexole 0.5 mg tablet 0.5 mg PO BEDTIME 10/26/22 07/21/23 06/03/23 History tramadol 50 mg tablet 50 mg PO Q6H PRN Pain 10/26/22 07/21/23 Unknown History acetaminophen 325 mg tablet 975 mg PO DAILY 05/19/23 07/21/23 06/03/23 08:00 History aspirin 81 mg tablet,delayed 81 mg PO DAILY 05/19/23 07/21/23 06/03/23 History release atorvastatin 40 mg tablet 40 mg PO DAILY 05/19/23 07/21/23 06/03/23 History cholecalciferol (vitamin D3) 25 25 mcg PO DAILY 05/19/23 07/21/23 Unknown History mcg (1,000 unit) capsule (Vitamin D3) cyanocobalamin (vitamin B-12) 500 500 mcg PO DAILY 05/19/23 07/21/23 Unknown History mcg tablet (Vitamin B-12) fluticasone fur. 200 mcg-umeclid 1 ea inhalation DAILY 05/19/23 07/21/23 06/03/23 History 62.5 mcg-vilant 25 mcg inhalat.powder (Trelegy Ellipta) ipratropium 0.5 mg-albuterol 3 mg 3 ml inhalation QID PRN Shortness 05/19/23 07/21/23 Unknown History (2.5 mg base)/3 mL nebulization Of Breath Or Wheezing soln Exam Pertinent Lab Results Pertinent Lab Results: Lab Results 05/19/23 Range/Units 11:01 WBC 8.1 (4.8-10.8) X10*3/uL RBC 4.06 L (4.60-5.80) X10*6/uL Hgb 13.4 L (14.0-18.0) g/dl Hct 39.5 L (42.0-52.0) % MCV 97.3 (80.0-98.0) fL MCH 33.0 (27.0-33.0) pg MCHC 33.9 (31.0-36.0) g/dl RDW 15.5 (11.0-16.0) % Plt Count 183 (160-400) X10*3/uL MPV 9.4 (9.4-12.4) fL Absolute Nucleated RBC 0.000 (0.0-0.012) X10*3/uL Nucleated RBC % (auto) 0.0 (0.0-0.2) /100WBC Sodium 134 L (135-145) mmol/L Potassium 4.5 (3.3-5.1) mmol/L Chloride 103 (96-108) mmol/L Carbon Dioxide 21 L (22-29) mmol/L Anion Gap 15 (12-20) BUN 17 H (9-16) mg/dL Creatinine 1.40 (0.5-1.4) mg/dL Estim Creat Clear Calc 62.8 Estimated GFR 50 Random Glucose 121 H (60-115) mg/dL Calcium 10.1 (8.4-10.2) mg/dL Total Bilirubin 0.7 (0.0-1.0) mg/dL AST 16 (5-37) U/L ALT 17 (0-40) U/L Alkaline Phosphatase 79 (39-117) U/L Total Protein 7.6 (6.5-8.0) g/dL Albumin 4.4 (3.5-5.0) g/dL Narrative Narrative: EKG 04/20[address] atrial fibrillation with nonspecific ST changes NM cardiolite stress test 04/2023 Impression: 1. Myocardial perfusion imaging study shows no ischemia but evidence of inferoapical infarct 2. Gated LVEF is 62% 3. Transient ischemic dilatation not present EKG is nondiagnostic for ischemia ECHO 04/2023 Conclusions: - The left ventricular systolic function is normal. The calculated ejection fraction is 68% by biplane method. - There is moderately increased left ventricular wall thickness. - The basal inferior and mid inferior segments are hypokinetic. - Severe biatrial enlargement. - There is severe calcification of the aortic valve. There is moderate aortic valve stenosis. - There is moderate mitral annular calcification. PFT 11/2022 Mild obstruction, No reversibility, No restriction and no decrease in diffusion Lung CT 07/2022 S/P RUL lobectomy New 4 mm RLL nodule as detailed above most likely represents an intrapulmonary node. Rec repeat 12 months. Assessment and Plan Assessment Anesthesia Assessment: Chart Reviewed Final Anesthetic Review Family History of Problems with Anesthesia: No History of Problems with Anesthesia: No Documented by User: Jennifer Sheldon MD 07/21/23 13:47 COUNT INCLUDES THE [facility] Past Medical History Medical History COVID-19 Blindness of left eye History of eye prosthesis Thyroid disease GERD (gastroesophageal reflux disease) Numbness On beta patrick at home On anticoagulant therapy Murmur PVD (peripheral vascular disease) Myocardial infarction Atrial fibrillation Alcohol dependence Post laminectomy syndrome Asthma Renal stones XAVIER (obstructive sleep apnea) COPD (chronic obstructive pulmonary disease) Anemia Hepatitis C Hyperlipidemia HTN (hypertension) SVT (supraventricular tachycardia) CAD (coronary artery disease) Family History Family History Father Cancer Mother CVD (cardiovascular disease) Surgical History Surgical History Hx of eye surgery History of esophagogastroduodenoscopy (EGD) H/O colonoscopy S/P lobectomy of lung (~05/2021) Stented coronary artery Hx of thyroidectomy History of back surgery Hx of cardiac cath Social History Social History Are you a primary body care manager to a significant other at home: No Do you presently have visiting nurse or other home services: No Alcohol intake: current Alcohol intake frequency: 0-2 drinks per day Alcohol type: beer Patient Tobacco Use Status: Former Tobacco user Quit Date: 2009 Tobacco use type: Cigarette Cigarette Packs Per Day: 1 Use of substances other than those prescribed or required for medical reasons: Yes Substance Use Type: Marijuana Are you DNR?: No Advance Directives: No Advance Directives Information Provided: Yes Meds Allergies Allergy/AdvReac Type Severity Reaction Status Date / Time No Known Allergies Allergy Verified 07/14/23 10:01 [No Known Allergies*] Home Medications ?Medication ?Instructions ?Recorded ?Confirmed ?Last Taken ?Type famotidine 40 mg tablet 40 mg PO DAILY 04/12/20 07/21/23 06/03/23 History gabapentin 600 mg tablet 600 mg PO TID 04/12/20 07/21/23 06/03/23 History lisinopril 40 mg tablet 40 mg PO DAILY 04/12/20 07/21/23 06/03/23 History metoprolol tartrate 50 mg tablet 50 mg PO BID 04/12/20 07/21/23 06/03/23 History albuterol sulfate 90 mcg/actuation 2 puff inhalation QID PRN 10/26/22 07/21/23 06/03/23 History aerosol inhaler Shortness Of Breath Or Wheezing pramipexole 0.5 mg tablet 0.5 mg PO BEDTIME 10/26/22 07/21/23 06/03/23 History tramadol 50 mg tablet 50 mg PO Q6H PRN Pain 10/26/22 07/21/23 Unknown History acetaminophen 325 mg tablet 975 mg PO DAILY 05/19/23 07/21/23 06/03/23 08:00 History aspirin 81 mg tablet,delayed 81 mg PO DAILY 05/19/23 07/21/23 06/03/23 History release atorvastatin 40 mg tablet 40 mg PO DAILY 05/19/23 07/21/23 06/03/23 History cholecalciferol (vitamin D3) 25 25 mcg PO DAILY 05/19/23 07/21/23 Unknown History mcg (1,000 unit) capsule (Vitamin D3) cyanocobalamin (vitamin B-12) 500 500 mcg PO DAILY 05/19/23 07/21/23 Unknown History mcg tablet (Vitamin B-12) fluticasone fur. 200 mcg-umeclid 1 ea inhalation DAILY 05/19/23 07/21/23 06/03/23 History 62.5 mcg-vilant 25 mcg inhalat.powder (Trelegy Ellipta) ipratropium 0.5 mg-albuterol 3 mg 3 ml inhalation QID PRN Shortness 05/19/23 07/21/23 Unknown History (2.5 mg base)/3 mL nebulization Of Breath Or Wheezing soln Exam Airway Mallampati Class: III TM Dist: >3cm Neck ROM: Full Denture: Upper Assessment and Plan Assessment Anesthesia Assessment: Anesthesia Plan Discussed Final Anesthetic Review NPO: Yes ASA Class: III Final Preanesthetic Review: No Changes in Pt Med Stat, Meds/Allgs Chart Reviewed, Consent Obtained/Reviewed and Anes Risks/Benef Reviewed Patient Risk: Intermediate Procedure Risk: Low Anesthetic Plan Anesthetic Plan: GA Disposition: Standard PACU
[2023-07-21] VITALS (7 sets, daily range): BP systolic 103–126; BP diastolic 58–70; PULSE 55–65; RESP 16; TEMP 36.3–36.6; O2SAT 97–98; BMI 31.6
--- OUTSIDE RECORDS SUMMARY | 2023-07-21 12:13 | XMS_ITS | Patient Health Record ---
Author Organization [facility] Address [address] [place] [address] Care Team Providers Care Mine Foreman Name Role Phone Zander CORADO, Kojo Primary Care Provider Power De La Torre Jr Unavailable Kenny Funez Unavailable [phone] ALLERGIES No Known Allergies RESULTS Component Value Reference Range Notes Complete Blood Count Auto Di ff Reviewed date:10/26/2022 03:44:53 PM Interpretation: Performing Lab:[facility], [address] [place] [id number] Notes/Report: White Blood Count 8.9 4.8-10.8 X10*3/uL [...] INR Reviewed date:10/26/2022 03:42:58 PM Interpretation: Performing Lab:[address] [id number] Notes/Report: Prothrombin Time 11.4 11.1-13.3 [employer] [...] Panel Reviewed date:10/26/2022 03:43:11 PM Interpretation: Performing Lab:[address] [id number] Notes/Report: Bilirubin Total 0.7 0.0-1.0 mg/dL Bilirubin Direct 0.2 0.0-0.5 mg/dL Aspartate Amino Transferase 35 5-37 U/L Alanine Aminotransferase 42 0-40 U/L Total Protein 7.3 6.5-8.0 g/dL Albumin Level 4.2 3.5-5.0 g/dL Alkaline Phosphatase 94 39-117 U/L Pathology Reviewed date:11/18/2022 08:50:20 AM Interpretation: Performing Lab:[address] [id number] Notes/Report: REASON FOR REFERRAL No Information MEDICATIONS [...] directed Orally O nce a day Active [place] 3 1000 MG 1 capsule Orally Onc [...] Problem Colon cancer screening (Z12.11) Active confirmed 539388774 Problem Rectal bleeding (K62.5) Active confirmed 45464123 Problem Left lower quadrant pain (R10.32) Active confirmed 202800496 Problem Other cirrhosis of liver (K74.69) Active confirmed 02034769 Problem Chronic hepatitis C without hepatic coma (B18.2) Active confirmed 513014570 Problem Liver mass (R16.0) Active confirmed 166462293 Problem 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) Active confirmed 9943153934519943 Problem Abnormal ultrasound of liver (R93.2) Active confirmed 86753107749609919 Problem Abnormal MRI, liver (R93.2) Active confirmed 223284607 Problem Focal nodular hyperplasia of liver (K76.89) Active confirmed 221575751 Problem Elevated liver function tests (R94.5) Active confirmed 370381250 VITAL SIGNS Temperature 97.5 degrees Fahrenheit 12/02/2022 Blood pressure diastolic 00 mm Hg 12/02/2022 Height 73.5 in 12/02/2022 Blood pressure systolic 000 mm Hg 12/02/2022 Weight 238 lb 6 oz lbs 12/02/2022 BMI 31.02 kg/m2 12/02/2022 Encounters Encounter Location Date Provider Diagnosis [facility] Out[facility] [address] [place] [id number] 11/11/2022 Power Barrera Jr Cedeno's esophagus with dysplasia K22.719 [facility] [address] [place] [id number] 09/29/2022 Kenny Funez [facility] [address] [place] [phone] 12/02/2022 Power Barrera Jr Cedeno's esophagus with dysplasia K22.719 [facility] [address] [place] [phone] 10/26/2022 Power Barrera Jr [facility] [address] [place] [phone] 11/18/2022 Power Barrera Jr ASSESSMENTS Encounter Date Diagnosis Assessment Notes Treatment Notes Treatment Clinical Notes 11/11/2022 Cedeno's esophagus with dysplasia (ICD-10 - [...] Provider Name:Power hall , 12/01/2023 10:00:00 AM, [address] [place] [address], [address], [place], [address], Insurance Providers Payer Name Payer Address Payer Phone Subscriber Number Group Number Insured Name Patient Relationship to Insured Coverage Start Date Coverage End Date MEDICARE OF [place] [address] [place] [address] [id number] KAHLIL SIM Self - patient is the insured MEDICAID OF [facility] [address] [place] [address] [id number] KAHLIL SIM Self - patient is the insured MEDICAL (GENERAL) HISTORY Medical History History ICD Code Colon polyps, colonoscopy 04/13, multiple adenomas, three-year followup hepatitis C, F4 fibrosis, status post [place] rvoni x12 weeks with SVR hypertension depression back pain elevated cholesterol coronary artery disease, [place] 12/2017, ross nt placement leg numbness. anemia COPD XAVIER/CPAP kidney stones Cedeno's esophagus, EGD /2 3, indefinite to low-grade dysplasia, followup EGD 11/11, and no dysplasia on biopsy or WATS, 2 year followup Surgical History Surgery Date(Month/Year) eye surgery, left eye blindness thyroid surgery Coronary artery stent placement 12/2017 back surgery 2017 Hospitalization History Reason Date(Month/Year) Right upper lobectomy 05/2021
--- NOTE | 2023-07-21 12:38 | MHC.SHP ---
Pre-Procedural Eval Section A - 24 Hr Update-Section A only Date of Service: 07/21/23 The patient is an INPATIENT: No Changes since office visit: Yes Changes in Medication and Yes Patient answered all questions; No Cold of Flu in the past 2 weeks and No New Medical Problems The patient has been examined within 24 hours of the surgical procedure. The History & Physical has been completed within 30 days and I have reviewed it.: Yes Section B - Complete if H&P > 30 days Chief Complaint: Paroxysmal atrial fibrillation Allergies: Allergies Allergy/AdvReac Type Severity Reaction Status Date / Time No Known Allergies Allergy Verified 07/14/23 10:01 [No Known Allergies*] Plan I have reviewed the history and physical and performed a pertinent physical examination on my patient. No changes have occurred unless specified. Time Spent With Patient Time: Total time managing care of this patient today ____ minutes.
--- NOTE | 2023-07-21 14:58 | ECG_ITS ---
Test Reason : s/p cardioversion Blood Pressure : / mmHG Vent. Rate : 059 BPM Atrial Rate : 059 BPM P-R Int : 388 ms QRS Dur : 084 ms QT Int : 452 ms P-R-T Axes : 071 -03 052 degrees QTc Int : 447 ms Sinus bradycardia with 1st degree A-V block Inferior infarct (cited on or before 06-APR-2016) Cannot rule out Anterior infarct (cited on or before 06-APR-2016) Abnormal ECG When compared with ECG of 17-APR-2023 11:41, Sinus rhythm has replaced Atrial fibrillation Referred By: Danilo Em Electronically Signed By:PHILOMENA BOSTON
--- NOTE | 2023-07-21 14:59 | HO.CARDIVERS ---
Cardioversion Procedure Note Cardioversion Date of Procedure: Today Ordering Provider: Nirmala Em Performing Provider: Nirmala Em Indication for Procedure: Persistent symptomatic atrial fibrillation Pre-Op Diagnosis: Same Post-Op Diagnosis: Normal sinus rhythm Performed with Transesophageal Echo: No History: See my note Consent: Verbal and Written consent was obtained from the patient before starting and after confirming oral anticoagulation use. The patient was made aware of the risk of synchronized cardioversion including benefits and alternatives Procedure: After consent obtained, cardioversion pads were attached in anteroposterior configuration and the patient was sedated by the anesthesia team. Once adequate sedation achieved, patient was delivered 200 joules of biphasic synchronized energy in anteroposterior configuration. Complications: Mobitz type 1 second-degree AV block Impression: Successful conversion to sinus rhythm Recommendations: 1. 12 lead EKG 2. Reduce metoprolol to 25 mg b.i.d. 3. Continue full oral anticoagulation without interruption as well as Multaq 4. Follow up in the clinic after Holter monitor
== END 2023-07-21 15:52 | disposition home or self-care (01) ==
PROVIDERS: PCP Internal Medicine; Visit Provider Internal Medicine Cardiovascular Disease
PROC: 5A2204Z Restoration of Cardiac Rhythm, Single (ICD-10-PCS; principal; 2023-07-21 14:00)
DX: I48.0 Paroxysmal atrial fibrillation (principal); Z79.01 Long term (current) use of anticoagulants; I73.9 Peripheral vascular disease, unspecified; R60.0 Localized edema; I25.10 Atherosclerotic heart disease of native coronary artery without angina pectoris; Z95.5 Presence of coronary angioplasty implant and graft; I10 Essential (primary) hypertension; D64.9 Anemia, unspecified; J44.9 Chronic obstructive pulmonary disease, unspecified; G47.33 Obstructive sleep apnea (adult) (pediatric); Z79.899 Other long term (current) drug therapy; Z98.890 Other specified postprocedural states; Z87.891 Personal history of nicotine dependence
CPT/HCPCS: 92960; 93005

== ENCOUNTER → 2023-07-21 12:11 | Outpatient (BNV) | payer MEDICARE, MEDICAID, SELFPAY | PROVIDERS: PCP Internal Medicine; Visit Provider Internal Medicine Cardiovascular Disease | DX: I44.0 Atrioventricular block, first degree (principal) | CPT/HCPCS: 92960; 93010 ==

== ENCOUNTER 2023-07-26 16:36 | Outpatient (REF) | payer MEDICARE, MEDICAID, SELFPAY ==
--- NOTE | ~2023-07-26 | MR_ITS ---
MRI OF THE LUMBAR SPINE WITHOUT CONTRAST CT OF THE LUMBAR SPINE WITHOUT CONTRAST CLINICAL INFORMATION: Spinal stenosis. Lumbar region radiculopathy. COMPARISON: Lumbar spine radiographs 03/01/2023. TECHNIQUE: Multiplanar multisequence MR imaging of the lumbar spine obtained without contrast. Additionally, a noncontrast CT of the lumbar spine is obtained. This CT examination was performed using dose optimization techniques as appropriate, variously including the following: *Automated exposure control *Adjustment of mA and/or kV according to patient size (this includes techniques or standardized protocols for targeted exams where dose is matched to indication/reason for exam; i.e. extremities or head) *Use of iterative reconstruction technique FINDINGS: There are 5 nonrib-bearing lumbar-type vertebral bodies. Grade 1 degenerative anterolisthesis of L5 on S1. Grade 1 retrolisthesis of L2 on L3 and L3 on L4. No acute fractures. No bone marrow edema. Modic type II endplate signal changes at L4-L5. Moderate disc volume loss and vacuum phenomenon at L3-L4, L4-L5, and L5-S1. There is also disc desiccation at L2-L3. Vertebral body heights are overall maintained. Multilevel endplate osteophytes. Conus terminates at the L1-L2 level. There are bilateral renal cysts. There is paraspinal muscular atrophy bilaterally. There is extensive aortoiliac atherosclerotic calcification. Sigmoid diverticulosis. L1-L2: Small annular disc bulge and mild bilateral facet arthropathy. No central canal stenosis and no foraminal stenosis. L2-L3: Grade 1 retrolisthesis. There is a diffuse annular disc bulge with a superimposed shallow left paracentral disc protrusion that along with epidural lipomatosis results in mild central canal stenosis. There is no foraminal stenosis. L3-L4: Grade 1 retrolisthesis. There is severe bilateral facet arthropathy and ligamentum flavum thickening. Epidural lipomatosis. Findings in concert result in moderate to severe central canal stenosis, bilateral subarticular zone stenosis with mass effect on the traversing L4 nerve roots bilaterally, and moderate to severe bilateral foraminal stenosis with mass effect on the exiting L3 nerve roots bilaterally. L4-L5: Laminectomy changes. Diffuse disc osteophyte complex along with severe bilateral facet arthropathy and ligamentum flavum thickening as well as epidural lipomatosis result in moderate to severe thecal sac effacement/central canal stenosis as well as moderate to severe right and moderate left foraminal stenosis with mass effect on the exiting right greater than left L4 nerve roots. L5-S1: Right hemilaminectomy changes. Grade 1 degenerative anterolisthesis with uncovered disc and a superimposed diffuse annular disc bulge. Diffuse annular disc bulge and severe bilateral facet arthropathy, ligamentum flavum thickening, and epidural lipomatosis result in severe thecal sac effacement/central canal stenosis and severe bilateral foraminal stenosis with compression of the exiting L5 nerve roots bilaterally. Epidural lipomatosis also severely narrows the sacral thecal sac at and below S1. MR/MR lumbar spine wo con IMPRESSION: - At L5-S1, there are laminectomy changes and grade 1 degenerative anterolisthesis along with spondylitic changes and epidural lipomatosis result in severe thecal sac effacement/central canal stenosis and severe bilateral foraminal stenosis with compression of the exiting L5 nerve roots bilaterally. Epidural lipomatosis also severely narrows the sacral thecal sac at and below S1. - At L4-L5, there are laminectomy changes and multifactorial degenerative changes along with epidural lipomatosis result in moderate to severe thecal sac effacement/central canal stenosis as well as moderate to severe right and moderate left foraminal stenosis with mass effect on the exiting right greater than left L4 nerve roots. - At L3-L4, grade 1 retrolisthesis, multifactorial degenerative changes, and epidural lipomatosis result in moderate to severe thecal sac effacement/central canal stenosis, bilateral subarticular zone stenosis with mass effect on the traversing L4 nerve roots bilaterally, and moderate to severe bilateral foraminal stenosis with mass effect on the exiting L3 nerve roots bilaterally. - There is extensive aortoiliac atherosclerotic calcification. - Paraspinal muscular atrophy bilaterally. - Sigmoid diverticulosis and bilateral simple renal cysts for which no further imaging follow-up is warranted.
== END 2023-07-26 16:37 | disposition home or self-care (01) ==
LOC: HO.MRI 16:36
PROVIDERS: PCP Internal Medicine; Visit Provider Physician Assistant
DX: M54.16 Radiculopathy, lumbar region (principal)
CPT/HCPCS: 72148

== ENCOUNTER 2023-08-10 12:44 | Outpatient (AMB) | payer MEDICARE, MEDICAID, SELFPAY ==
--- NOTE | 2023-08-10 12:50 | HO.SPINEOV ---
Intake Visit Reasons: discuss sx Intake Note: Mr. Nichole is here today to discuss surgery. Flour Tester Required: No Allergies No Known Allergies [No Known Allergies*] Allergy (Verified 08/10/23 12:58) Assessment & Plan Assessment & Plan (1) Lumbar radiculopathy: Code(s): M54.16 - Radiculopathy, lumbar region Category: Medical Plan Shane comes in today for a follow-up visit after being sent for a CT scan of his lumbar spine. To recap he recently had an L4-5-S1 right-sided lumbar decompression completed by our service on 06/03/2023. There was some discussion of the possible need for a 3 level fusion from L3-S1 in the future if his symptoms persisted. He had a very difficult postoperative course and was in quite a bit of pain at his postoperative follow-up visits. We met today to discuss the possibility of a 3 level fusion. We reviewed his CT scan together. Thankfully, Shane states that he is beginning to have relief of his low back pain and right-sided radiculopathy. He states that he has days where he has little to no pain, but is still experiencing other days where he feels the radiculopathy is ?bad.? I showed Ag a few of our fusion models, and extensively explained what a 3 level fusion would entail. We also discussed his surgical history: He has had 3 other surgical procedures in his lumbar spine, which statistically puts him at increased risk for poor outcomes after subsequent surgery. For the time being he would like to allow the tincture of time to resolve some of his continued symptoms. I encouraged him to do so, and to call our office if he would like to pursue a surgical intervention for his issue in the future. Total amount of time spent in this visit was 35minutes in discussion of symptoms, CT imaging results and subsequent plan of care. Homero Hendrickson MD,PhD [facility] Coding Level of Care Code Est Pt Level 4 (54190) Diagnoses Lumbar radiculopathy M54.16
== END 2023-08-10 14:14 | disposition home or self-care (01) ==
PROVIDERS: PCP Internal Medicine; Visit Provider Physician Assistant
DX: M54.16 Radiculopathy, lumbar region (principal)
CPT/HCPCS: 99024

== ENCOUNTER → 2023-08-10 12:44 | Outpatient (BNVA) | payer MEDICARE, MEDICAID, SELFPAY | PROVIDERS: PCP Internal Medicine; Visit Provider Physician Assistant | DX: M54.16 Radiculopathy, lumbar region (principal) | CPT/HCPCS: 99212 ==

== ENCOUNTER 2023-08-13 21:57 | Emergency (ER) | payer MEDICARE, MEDICAID, SELFPAY ==
--- NOTE | 2023-08-13 | ECG_ITS ---
Test Reason : chest pain Blood Pressure : / mmHG Vent. Rate : 067 BPM Atrial Rate : 000 BPM P-R Int : 000 ms QRS Dur : 088 ms QT Int : 418 ms P-R-T Axes : 000 -05 056 degrees QTc Int : 441 ms Atrial fibrillation Inferior infarct (cited on or before 06-APR-2016) Anterior infarct (cited on or before 06-APR-2016) Abnormal ECG When compared with ECG of 21-JUL-2023 15:03, Atrial fibrillation has replaced Sinus rhythm Questionable change in initial forces of Anterior leads Referred By: Generic ED Physician Electronically Signed By:Quinn Smyth
--- NOTE | ~2023-08-13 | XR_ITS ---
EXAMINATION: XR CHEST CLINICAL INFORMATION: Cough. COPD. COMPARISON: 04/17/2023 TECHNIQUE: PA and lateral views of the chest were obtained. FINDINGS: Patchy airspace consolidation is present in the right lower lobe posteriorly. Lungs otherwise clear. Cardiac and mediastinal contours are normal. Calcific atherosclerosis is present in the thoracic aorta. No effusion or pneumothorax. Degenerative disc disease is present in the thoracic spine. XR/XR chest 2V IMPRESSION: Patchy airspace consolidation in the right lower lobe, concerning for pneumonia.
[2023-08-13 22:27] VITALS: BP 111/55; PULSE 70; RESP 20; TEMP 36.6; O2SAT 96; BMI 31.9
--- OUTSIDE RECORDS SUMMARY | 2023-08-13 22:39 | XMS_ITS | Patient Health Record ---
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 Paralegal Name Role Phone Zander CORADO, Kojo Primary Care Provider Power De La Torre Jr Unavailable Kenny Funez Unavailable [phone] ALLERGIES No Known Allergies RESULTS Component Value Reference Range Notes Complete Blood Count Auto Di ff Reviewed date:10/26/2022 03:44:53 PM Interpretation: Performing Lab:[facility], [address] [place] [id number] Notes/Report: White Blood Count 8.9 4.8-10.8 X10*3/uL [...] INR Reviewed date:10/26/2022 03:42:58 PM Interpretation: Performing Lab:[address] [phone] Notes/Report: Prothrombin Time 11.4 11.1-13.3 SEC [employer] [...] Panel Reviewed date:10/26/2022 03:43:11 PM Interpretation: Performing Lab:[address] [phone] Notes/Report: Bilirubin Total 0.7 0.0-1.0 mg/dL Bilirubin Direct 0.2 0.0-0.5 mg/dL Aspartate Amino Transferase 35 5-37 U/L Alanine Aminotransferase 42 0-40 U/L Total Protein 7.3 6.5-8.0 g/dL Albumin Level 4.2 3.5-5.0 g/dL Alkaline Phosphatase 94 39-117 U/L Pathology Reviewed date:11/18/2022 08:50:20 AM Interpretation: Performing Lab:[address] [phone] Notes/Report: REASON FOR REFERRAL No Information MEDICATIONS Medication SIG (Take, Route, Frequency, Duration) Notes Start Date End Date Status Gabapentin 600 MG as directed Orally tid Active Lisinopril 40 MG 1 tablet Oral Once a day Active amLODIPine Besylate 10 MG 1 tablet Orall y Once a day Active Incruse Ellipta 62.5 MCG/INH 1 puff Inha lation Once a day Active Famotidine 40 MG Take 1 tablet by rommel th twice daily for 90 Active Pramipexole Dihydrochloride 0.125 MG 2 tablet Orally Once a day Active Aspirin 81 MG 1 tablet Orally Once a day Active Metoprolol Tartrate 50 MG 1 tablet with food Oral Twice a day Active Ranolazine ER 500 MG 1 tablet Orally Twi ce a day for 30 day(s) Active Vitamin B12 500 as directed Orally O nce a day Active [place] 3 1000 MG 1 capsule Orally Onc [...] Problem Colon cancer screening (Z12.11) Active confirmed 411099213 Problem Rectal bleeding (K62.5) Active confirmed 43107819 Problem Left lower quadrant pain (R10.32) Active confirmed 602635901 Problem Other cirrhosis of liver (K74.69) Active confirmed Problem Chronic hepatitis C without hepatic coma (B18.2) Active confirmed 563707058 Problem Liver mass (R16.0) Active confirmed 119599744 Problem 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) Active confirmed [id number] Problem Abnormal ultrasound of liver (R93.2) Active confirmed 62525207170793834 Problem Abnormal MRI, liver (R93.2) Active confirmed 148406975 Problem Focal nodular hyperplasia of liver (K76.89) Active confirmed 854225421 Problem Elevated liver function tests (R94.5) Active confirmed 548606726 VITAL SIGNS Temperature 97.5 degrees Fahrenheit 12/02/2022 Blood pressure diastolic 00 mm Hg 12/02/2022 Height 73.5 in 12/02/2022 Blood pressure systolic 000 mm Hg 12/02/2022 Weight 238 lb 6 oz lbs 12/02/2022 BMI 31.02 kg/m2 12/02/2022 Encounters Encounter Location Date Provider Diagnosis [facility] Out[facility] [address] [place] [id number] 11/11/2022 Power Barrera Jr Cedeno's esophagus with dysplasia K22.719 [facility] [address] [place] [phone] 09/29/2022 Kenny Funez [facility] [address] [place] [phone] 12/02/2022 Power Barrera Jr Cedeno's esophagus with dysplasia K22.719 [facility] [address] [place] [phone] 10/26/2022 Power Barrera Jr [facility] [address] [place] [phone] 11/18/2022 Power Barrera Jr ASSESSMENTS Encounter Date [...] Provider Name:Power hall , 12/01/2023 10:00:00 AM, [address] [place] [address], [address], [place], [address], Insurance Providers Payer Name Payer Address Payer Phone Subscriber Number Group Number Insured Name Patient Relationship to Insured Coverage Start Date Coverage End Date [place] [address] [place] [id number] KAHLIL SIM Self - patient is the insured MEDICAID OF [facility] [address] [place] [address] [phone] [id number] KAHLIL SIM Self - patient is the insured MEDICAL (GENERAL) HISTORY Medical History History ICD Code Colon polyps, colonoscopy 04/13, multiple adenomas, three-year followup hepatitis C, F4 fibrosis, status post Pastrana rvoni x12 weeks with SVR hypertension depression back pain elevated cholesterol coronary artery disease, [place] 12/2017, ross nt placement leg numbness. anemia COPD XAVIER/CPAP kidney stones Cedeno's esophagus, EGD / 3, indefinite to low-grade dysplasia, followup EGD 11/11, and no dysplasia on biopsy or WATS, 2 year followup Surgical History Surgery Date(Month/Year) eye surgery, left eye blindness thyroid surgery Coronary artery stent placement 12/2017 back surgery 2017 Hospitalization History Reason Date(Month/Year) Right upper lobectomy 05/2021
[2023-08-13 23:05] LABS: MANUAL DIFF FLAG NO
[2023-08-13 23:06] LABS: Basophils Percent Auto 0.6 % (0-2); Eosinophils Absolute Auto 0.2 X10*3/uL (0.0-0.4); Eosinophils Percent Auto 3.2 % (0-4); Hematocrit 31.4 % (42.0-52.0); Hemoglobin 10.8 g/dl (14.0-18.0); Imm Gran Abs Auto 0.13 X10*3/uL (0.00-0.03); Imm Gran Pct Auto 1.8 % (0.0-0.4); Lymphocytes Absolute Auto 1.7 X10*3/uL (1.2-4.9); Lymphocytes Percent Auto 23.1 % (20-40); Mean Corpuscular HGB Conc 34.4 g/dl (31.0-36.0); Mean Corpuscular Hemoglobin 32.2 pg (27.0-33.0); Mean Corpuscular Volume 93.7 fL (80.0-98.0); Mean Platelet Volume 9.2 fL (9.4-12.4); Monocytes Absolute Auto 1.1 X10*3/uL (0.1-1.2); Monocytes Percent Auto 15.3 % (2-11); Platelet Count 145 X10*3/uL (160-400); Red Blood Count 3.35 X10*6/uL (4.60-5.80); Red Cell Distribution Width 14.1 % (11.0-16.0); White Blood Count 7.2 X10*3/uL (4.8-10.8)
[2023-08-13 23:18] LABS: Anion Gap 14 (12-20); Blood Urea Nitrogen 22 mg/dL (9-16); Calcium 9.1 mg/dL (8.4-10.2); Carbon Dioxide 17 mmol/L (22-29); Chloride 106 mmol/L (96-108); Creatinine Clr Calc Pharmacy 66.6; Estimated Glomerular Filt Rate 54; Glucose Random 91 mg/dL (60-115); Sodium 133 mmol/L (135-145)
[2023-08-13 23:26] LABS: Troponin-I High Sensitivity 3.8 ng/L (<3.5-35.0)
[2023-08-13 23:45] LABS: Influenza A PCR NEGATIVE (Negative); Influenza B PCR NEGATIVE (Negative); Resp Syncy Virus RNA Qual PCR NEGATIVE (Negative); SARS COV2 PCR INHOUSE NEGATIVE (Negative)
== END 2023-08-14 03:37 | disposition left against medical advice (07) ==
PROVIDERS: Emergency Provider Emergency Medicine; PCP Internal Medicine
DX: R07.9 Chest pain, unspecified (principal); R05.9 Cough, unspecified; Z03.818 Encounter for observation for suspected exposure to other biological agents ruled out
CPT/HCPCS: 0241U; 36415; 71046; 80048; 84484; 85025; 93005; 99283; 99284

== ENCOUNTER → 2023-08-13 21:59 | Outpatient (BNV) | payer MEDICARE, MEDICAID, SELFPAY | PROVIDERS: Emergency Provider Emergency Medicine; PCP Internal Medicine; Visit Provider Internal Medicine Cardiovascular Disease | DX: I48.91 Unspecified atrial fibrillation (principal) | CPT/HCPCS: 93010 ==

== ENCOUNTER 2023-09-01 08:45 | Outpatient (AMB) | payer MEDICARE, MEDICAID, SELFPAY ==
--- NOTE | 2023-09-01 08:59 | MHC.OFFVIS ---
Vital Signs 09/01/23 09:00 Height 6 ft Weight 231 lb 7.766 oz BMI 31.4 BP 120/78 Blood Pressure Location Lt brachial Position Sitting Pulse 65 Intake Visit Reasons: 2 mth fu Intake Note: 2 month follow-up with ekg c/o ? 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 He has been having symptoms of exertional shortness of breath. He also has been noticing irregular heartbeat was not sure that his heart was back in atrial fibrillation. He has been taking all his medications regularly. He has been taking his oral anticoagulation regularly. Denies any orthopnea, PND, leg edema. He also recently came off infection for his lung. He denies any exertional chest pain. No lightheadedness, syncope. No bleeding issues or neurologic events. He said his back pain is a lot better and he can tolerate his current functionality. He has no upcoming planned spine procedures. [facility] Medical History COVID-19 Blindness of left eye History of eye prosthesis Thyroid disease GERD (gastroesophageal reflux disease) Numbness On beta patrick at home On anticoagulant therapy Murmur PVD (peripheral vascular disease) Myocardial infarction Atrial fibrillation Alcohol dependence Post laminectomy syndrome Asthma Renal stones XAVIER (obstructive sleep apnea) COPD (chronic obstructive pulmonary disease) Anemia Hepatitis C Hyperlipidemia HTN (hypertension) SVT (supraventricular tachycardia) CAD (coronary artery disease) Surgical History Hx of eye surgery History of esophagogastroduodenoscopy (EGD) H/O colonoscopy S/P lobectomy of lung (~05/2021) Stented coronary artery Hx of thyroidectomy History of back surgery Hx of cardiac cath Family History Father Cancer Mother CVD (cardiovascular disease) Social History Are you a primary urgent care physician assistant to a significant other at home: No Do you presently have visiting nurse or other home services: No Alcohol intake: current Alcohol intake frequency: 0-2 drinks per day Alcohol type: beer Patient Tobacco Use Status: Former Tobacco user Tobacco use type: Cigarette Cigarette Packs Per Day: 1 Substance Use Type: Marijuana Review of Systems Const Denies chills, Denies fatigue, Denies fever(s), Denies frequent falls, Denies weakness, Denies weight gain and Denies weight loss ENT Denies dizziness Card Denies chest pain, Denies leg edema, Denies lightheadedness, Denies palpitations, Denies dyspnea, Denies dyspnea on exertion, Denies orthopnea and Denies other (loss of consciousness) Resp Denies cough, Denies dyspnea and Denies dyspnea on exertion GI Denies hematochezia and Denies change in stool character Musc Denies abnormal gait, Denies muscle weakness, Denies numbness, Denies radiating pain into limb and Denies tingling Neuro Denies abnormal gait, Denies dizziness, Denies frequent falls, Denies numbness, Denies tingling and Denies weakness Endo Denies fatigue and Denies palpitations Physical Exam Vital Signs: Last Vital Signs Pulse 65 09/01/23 09:00 BP 120/78 09/01/23 09:00 BMI result Body Mass Index 31.4 Const General: cooperative, comfortable, no acute distress, alert and awake Nutritional Appearance: overweight Orientation/consciousness: patient oriented x3 Limitations: no limitations Neck Neck: Yes trachea midline, Yes supple and Yes no JVD Carotids: no bruits Resp Effort & Inspection: normal respiratory effort Auscultation: clear to auscultation bilaterally and diminished lung sounds Cardio Jugular venous distension: no JVD Palpation: normal PMI Rate: regular rate Rhythm: abnormal rhythm irregularly irregular Heart sounds: S1 normal heart sound present, S2 normal heart sound present, no click, no gallops and Murmur heart sound present systolic mid, decrescendo and crescendo GI Auscultation: normal bowel sounds Skin General skin exam: no rashes or lesions noted Neuro General: patient oriented x3 and no focal motor deficits Extrem General: Yes no clubbing, cyanosis or edema Psych Appearance: grossly normal Office Procedures EKG Details: EKG shows atrial flutter with variable conduction with poor R-wave progression with nonspecific ST changes 33246-[id number], Complete Assessment & Plan Assessment & Plan (1) Persistent atrial fibrillation: Code(s): I48.19 - Other persistent atrial fibrillation Category: Medical Plan: Recurrent and persistent atrial flutter, more organized rhythm than in the past on Multaq therapy. He has developed symptoms exertional shortness of breath again over the last week associated with some irregular heartbeat. He had done well with rhythm control approach after cardioversion. Will need to pursue the same. Multaq is ineffective will be discontinued. Will switch him to alternative therapy given his underlying lung issues as well as coronary artery disease choices are limited. Will start him on Tikosyn as inpatient loading hopefully early next week. Will require 72 hours of monitoring inpatient as per FDA requirement. Start him on 250 mcg b.i.d. and if tolerated further up titrated. If fails to convert after loading will schedule him for synchronized cardioversion at that point time. Continue full oral anticoagulation, currently on Eliquis 5 mg b.i.d.. Avoidance of stimulants was discussed. Also discussed with him about monitoring for atrial fibrillation with smart phone based EKG devices. He understands and will look into it. (2) CAD (coronary artery disease): Code(s): I25.10 - Atherosclerotic heart disease of [place] coronary artery without angina pectoris Category: Medical Plan: Coronary artery disease, currently stable. Advise continue current blood pressure control which is currently well optimized. Continue high-intensity statin therapy. Target goal LDL less than 70 mg/dL. Blood pressure is well optimized advised to monitor blood pressure at home. Goal blood pressure less than 130/84. Will follow up in the clinic in 4 weeks time, sooner p.r.n.. Thank you for allowing me to partake in his care Coding Level of Care Code Est Pt Level 4 (23097) Diagnoses Persistent atrial fibrillation I48.19 CAD (coronary artery disease) I25.10 CPT Codes EKG - CPT: 23872-[id number], Complete ([id number])
[2023-09-01 09:00] VITALS: BP 120/78; PULSE 65; BMI 31.4
== END 2023-09-01 09:36 | disposition home or self-care (01) ==
PROVIDERS: PCP Internal Medicine; Visit Provider Internal Medicine Cardiovascular Disease
DX: I48.19 Other persistent atrial fibrillation (principal); I25.10 Atherosclerotic heart disease of native coronary artery without angina pectoris
CPT/HCPCS: 93010; 99214

== ENCOUNTER → 2023-09-01 08:45 | Outpatient (BNVA) | payer MEDICARE, MEDICAID, SELFPAY | PROVIDERS: PCP Internal Medicine; Visit Provider Internal Medicine Cardiovascular Disease | DX: I25.10 Atherosclerotic heart disease of native coronary artery without angina pectoris (principal); I10 Essential (primary) hypertension; I48.19 Other persistent atrial fibrillation | CPT/HCPCS: 93005; 99212 ==

== ENCOUNTER 2023-09-06 09:45 | Outpatient (BNV) | payer MEDICARE, MEDICAID, SELFPAY | END 2023-09-07 07:44 | PROVIDERS: Admitting Provider Internal Medicine Cardiovascular Disease; PCP Internal Medicine; Visit Provider Internal Medicine Cardiovascular Disease | DX: I48.19 Other persistent atrial fibrillation (principal); I49.3 Ventricular premature depolarization | CPT/HCPCS: 93010 ==

== ENCOUNTER 2023-09-06 09:45 | Inpatient (IN) | payer MEDICARE, MEDICAID, SELFPAY ==
--- NOTE | 2023-09-06 10:27 | ECG_ITS ---
Test Reason : tiksoyn Blood Pressure : / mmHG Vent. Rate : 062 BPM Atrial Rate : 300 BPM P-R Int : 000 ms QRS Dur : 082 ms QT Int : 412 ms P-R-T Axes : 000 -04 025 degrees QTc Int : 418 ms Atrial flutter with variable A-V block Inferior infarct (cited on or before 06-APR-2016) Cannot rule out Anterior infarct (cited on or before 06-APR-2016) Abnormal ECG When compared with ECG of 13-AUG-2023 21:59, Atrial flutter has replaced Atrial fibrillation Nonspecific T wave abnormality no longer evident in Anterior leads Referred By: Nasima Carreno Electronically Signed By:ASHANTI SANTIAGO MD
--- OUTSIDE RECORDS SUMMARY | 2023-09-06 10:30 | XMS_ITS | Patient Health Record ---
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 Name Role Phone Zander CORADO, Kojo Primary Care Provider Power De La Torre Jr Unavailable Kenny Funez Unavailable [phone] ALLERGIES No Known Allergies RESULTS Component Value Reference Range Notes Complete Blood Count Auto Di ff Reviewed date:10/26/2022 03:44:53 PM Interpretation: Performing Lab:[facility], [address] [place] [id number] Notes/Report: White Blood Count 8.9 4.8-10.8 X10*3/uL [...] INR Reviewed date:10/26/2022 03:42:58 PM Interpretation: Performing Lab:[address] [phone] Notes/Report: Prothrombin Time 11.4 11.1-13.3 SEC [employer]NATIONAL [...] Panel Reviewed date:10/26/2022 03:43:11 PM Interpretation: Performing Lab:[address] [id number] Notes/Report: Bilirubin Total 0.7 0.0-1.0 mg/dL Bilirubin Direct 0.2 0.0-0.5 mg/dL Aspartate Amino Transferase 35 5-37 U/L Alanine Aminotransferase 42 0-40 U/L Total Protein 7.3 6.5-8.0 g/dL Albumin Level 4.2 3.5-5.0 g/dL Alkaline Phosphatase 94 39-117 U/L Pathology Reviewed date:11/18/2022 08:50:20 AM Interpretation: Performing Lab:[address] [phone] Notes/Report: REASON FOR REFERRAL No Information MEDICATIONS [...] directed Orally O nce a day Active [place] 3 1000 MG 1 capsule Orally Onc [...] Problem Colon cancer screening (Z12.11) Active confirmed 255470062 Problem Rectal bleeding (K62.5) Active confirmed 11812905 Problem Left lower quadrant pain (R10.32) Active confirmed 657225931 Problem Other cirrhosis of liver (K74.69) Active confirmed Problem Chronic hepatitis C without hepatic coma (B18.2) Active confirmed 324563066 Problem Liver mass (R16.0) Active confirmed 487257687 Problem 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) Active confirmed 9289195274643698 Problem Abnormal ultrasound of liver (R93.2) Active confirmed 44135308256070179 Problem Abnormal MRI, liver (R93.2) Active confirmed 548606821 Problem Focal nodular hyperplasia of liver (K76.89) Active confirmed 752782659 Problem Elevated liver function tests (R94.5) Active confirmed 865614495 VITAL SIGNS Temperature 97.5 degrees Fahrenheit 12/02/2022 Blood pressure diastolic 00 mm Hg 12/02/2022 Height 73.5 in 12/02/2022 Blood pressure systolic 000 mm Hg 12/02/2022 Weight 238 lb 6 oz lbs 12/02/2022 BMI 31.02 kg/m2 12/02/2022 Encounters Encounter Location Date Provider Diagnosis [facility] Outpatient [address] [place] [id number] 11/11/2022 Power Barrera Jr Cedeno's esophagus with dysplasia K22.719 [facility] [address] [place] [phone] 09/29/2022 Kenny Funez [facility] [address] [place] [phone] 12/02/2022 Power Barrera Jr Cedeno's esophagus with dysplasia K22.719 [facility] [address] [place] [phone] 10/26/2022 Power Barrera Jr [facility] [address] [place] [phone] 11/18/2022 Power Barrera Jr ASSESSMENTS Encounter Date [...] Provider Name:Power hall , 12/01/2023 10:00:00 AM, [address] [place] [address], [address], [place], [address], Insurance Providers Payer Name Payer Address Payer Phone Subscriber Number Group Number Insured Name Patient Relationship to Insured Coverage Start Date Coverage End Date MEDICARE OF [place] [address] [place] [id number] KAHLIL SIM Self - patient is the insured [facility]ICA[facility] [address] [place] [address] [phone] [id number] KAHLIL SIM Self - patient is the insured MEDICAL (GENERAL) HISTORY Medical History History ICD Code Colon polyps, colonoscopy 04/13, multiple adenomas, three-year followup hepatitis C, F4 fibrosis, status post Pastrana rvoni x12 weeks with SVR hypertension depression back pain elevated cholesterol coronary artery disease, CA 12/2017, ross nt placement leg numbness. anemia [...]
--- NOTE | 2023-09-06 10:36 | P.HPHOSP_ITS ---
History of Present Illness Date of Service: 09/06/23 Attending physician on admission: Patricio [facility] Chief Complaint: tikosyn load 68-year-old male with history of persistent atrial fibrillation on Multaq and anticoagulated with Eliquis, SVT, COPD, coronary artery disease, hypertension, hyperlipidemia, post-laminectomy syndrome, aortic stenosis, and alcohol use disorder consuming about 4 hard alcohol beverages on a daily basis admitted to med/tele at the recommendation of Cardiology for Tikosyn load. The patient has been symptomatic with fatigue and dyspnea on exertion for several months and has failed Multaq therapy. On arrival to the [facility], vital signs are within normal limits 6 for mild hypertension 148/82. Hematology studies unremarkable except for a stable, chronic anemia with H/H 11.2/33.2%. Creatinine , BUN , lytes . EKG shows atrial flutter with variable AV spencer block, rate 62 without any acute ischemic changes. QTC 418. The patient will be admitted for Tikosyn load with cardiac monitoring. Review of Systems 2 Review of Systems: General: No fevers, malaise, unintentional weight loss. +fatigue HEENT: No blurred vision, diplopia. No sore throat, nasal congestion, rhinorrhea, sinus pain, ear pain Cardiovascular: No chest pain, palpitations, or leg edema Respiratory: +CORRALES. No shortness of breath at rest, wheezing, cough GI: No abdominal pain, nausea, vomiting, diarrhea, constipation, melena, hematochezia : No dysuria, hematuria, increased urinary frequency, decreased urinary output MSK: No myalgia, back pain Neuro: No headaches, weakness, paresthesias Skin: No rashes or lesions [facility] Medical History COVID-19 Blindness of left eye History of eye prosthesis Thyroid disease GERD (gastroesophageal reflux disease) Numbness On beta patrick at home On anticoagulant therapy Murmur PVD (peripheral vascular disease) Myocardial infarction Atrial fibrillation Alcohol dependence Post laminectomy syndrome Asthma Renal stones COPD (chronic obstructive pulmonary disease) Anemia Hepatitis C Hyperlipidemia HTN (hypertension) SVT (supraventricular tachycardia) CAD (coronary artery disease) Family History Father Cancer Mother CVD (cardiovascular disease) Surgical History Hx of eye surgery History of esophagogastroduodenoscopy (EGD) H/O colonoscopy S/P lobectomy of lung (~05/2021) Stented coronary artery Hx of thyroidectomy History of back surgery Hx of cardiac cath Social History Household Members: None Housing: Apartment Are you a primary physician primary care sports medicine to a significant other at home: No Do you presently have visiting nurse or other home services: No Alcohol intake: current Alcohol intake frequency: 0-2 drinks per day Alcohol type: beer Patient Tobacco Use Status: Former Tobacco user Tobacco use type: Cigarette Cigarette Packs Per Day: 1 Use of substances other than those prescribed or required for medical reasons: Yes Substance Use Type: Marijuana Substance Use Frequency: Daily Last Used Substance: Hours (ago) Last Used Substance Other:: 09/05/23 1900 Currently Displaying Signs/Symptoms of Drug Intoxication Withdrawal: No Any prior treatment program specific to substance use: No Have you been hit, kicked, punched, or otherwise hurt by someone within the past year? If so, by whom?: No Do you feel safe in your current relationship?: No Current Relationship Is there a partner from a previous relationship who is making you feel unsafe now?: No Are you made to feel afraid or neglected: No Spiritual Healthcare Practices: none per patient Yarsani Healthcare Practices: none per patient Cultural Healthcare Practices: none per patient Advance Directives: Yes Advance Directives Information Provided: No Advance Directives on File: No Advance Directives Date on File: 09/06/23 Do you have a plan to hurt others: No Plan Recently lost weight without trying: No Eating poorly because of decreased appetite: No Nutrition Risks: No Nutritional Risk Poor oral hygiene: Yes service: No Meds Allergies Allergy/AdvReac Type Severity Reaction Status Date / Time No Known Allergies Allergy Verified 08/13/23 22:30 [No Known Allergies*] Active Medications: Current Medications Acetaminophen (Acetaminophen 325 Mg Tablet) 650 mg PO Q6H PRN PRN Reason: Pain, Mild (Pain Scale 1-3) Al Hydroxide/Mg Hydroxide (Magnesium Hydrox/Alum Hydrox 30 Ml Oral.Susp) 30 ml PO Q4H PRN PRN Reason: Heartburn/Nausea Dofetilide (Dofetilide 125 Mcg Capsule) 250 mcg PO BID [facility] Magnesium Hydroxide (Milk Of Magnesia 30 Ml Oral.Susp) 30 ml PO DAILY PRN PRN Reason: Constipation Melatonin (Melatonin 3 Mg Tablet) 6 mg PO BEDTIME PRN PRN Reason: Insomnia Sodium Chloride (0.9 % Sodium Chloride Flush 3 Ml Syringe) 3 ml IVFLUSH QSHIFT [facility] Home Medications ?Medication ?Instructions ?Recorded ?Confirmed ?Last Taken ?Type famotidine 40 mg tablet 40 mg PO BID 04/12/20 09/06/23 06/03/23 History gabapentin 600 mg tablet 600 mg PO TID 04/12/20 09/06/23 06/03/23 History lisinopril 40 mg tablet 40 mg PO DAILY 04/12/20 09/06/23 06/03/23 History albuterol sulfate 90 mcg/actuation 2 puff inhalation QID PRN 10/26/22 09/06/23 06/03/23 History aerosol inhaler Shortness Of Breath Or Wheezing acetaminophen 325 mg tablet 1,300 mg PO DAILY 05/19/23 09/06/23 06/03/23 08:00 History aspirin 81 mg tablet,delayed 81 mg PO DAILY 05/19/23 09/06/23 06/03/23 History release cholecalciferol (vitamin D3) 25 25 mcg PO DAILY 05/19/23 09/06/23 Unknown History mcg (1,000 unit) capsule (Vitamin D3) cyanocobalamin (vitamin B-12) 500 500 mcg PO DAILY 05/19/23 09/06/23 Unknown History mcg tablet (Vitamin B-12) fluticasone fur. 200 mcg-umeclid 1 ea inhalation DAILY 05/19/23 09/06/23 06/03/23 History 62.5 mcg-vilant 25 mcg inhalat.powder (Trelegy Ellipta) ipratropium 0.5 mg-albuterol 3 mg 3 ml inhalation QID PRN Shortness 05/19/23 09/06/23 Unknown History (2.5 mg base)/3 mL nebulization Of Breath Or Wheezing soln metoprolol tartrate 50 mg tablet 25 mg PO BID 09/01/23 09/06/23 Unknown History Physical Exam 2 Vital Signs and Narrative: Constitutional - Awake and Alert, No apparent distress Eyes - PERRLA, EOMI Cardiovascular - S1S2, irregularly irregular, normal rate, No edema Respiratory - Normal lung expansion, Normal respiratory effort, No respiratory distress, CTA bilaterally Gastrointestinal - NT / ND; +BS; No rebound or guarding Extremities - no calf tenderness bilaterally, no swelling Skin - Warm/Dry Neurological - Alert & oriented x3 Psychological - Appropriate affect Results Labs 09/06/23 11:50 09/07/23 05:37 Assessment and Plan (1) Persistent atrial fibrillation: Status: Acute Plan 68-year-old male with history of persistent atrial fibrillation on Multaq and anticoagulated with Eliquis, SVT, COPD, coronary artery disease, hypertension, hyperlipidemia, post-laminectomy syndrome, aortic stenosis, and alcohol use disorder consuming about 4 hard alcohol beverages on a daily basis admitted for tikosyn load. # persistent atrial fibrillation-rate controlled -Tikosyn load per cardiology- initiate 250mg BID, then 500mg BID if qtc wnl. EKG monitoring prior to and 2 hours after administration and electrolyte monitoring daily -continue Eliquis for anticoagulation -discontinue Multaq -continue metoprolol 25 mg b.i.d. for rate control # alcohol use disorder -not currently in acute withdrawal. Monitor on CIWA q.4h -if scoring on CIWA, consider initiating phenobarbital per protocol -p.o. thiamine, folic acid -addiction medicine consult # COPD -no acute exacerbation -continue maintenance inhalers, albuterol p.r.n. # CAD/HLD -continue ASA, statin, beta-patrick # hypertension -blood pressure reasonably controlled -continue amlodipine, metoprolol, lisinopril # post laminectomy syndrome -continue home pain medications DVT prophylaxis-Eliquis full code Patient requires inpatient stay at least 2 midnights for Tikosyn load requiring cardiac monitoring, EKG monitoring, electrolyte monitoring for 72 hours per FDA requirements. He will also require expert consultation Quality Stroke Does the patient have a stroke diagnosis?: No VTE Prior VTE?: No VTE Risk Level:: Medical - moderate - high VTE Device Contraindication: Treatment Not Indicated VTE Drug Contraindication: N/A - Med Ordered
[2023-09-06 11:36] VITALS: BMI 32.0
[2023-09-06 11:40] VITALS: BP 148/82; PULSE 65; RESP 20; TEMP 36.6; O2SAT 96
[2023-09-06 11:57] LABS: MANUAL DIFF FLAG NO
[2023-09-06 12:02] LABS: Basophils Absolute Auto 0.1 X10*3/uL (0.0-0.2); Basophils Percent Auto 1.2 % (0-2); Eosinophils Absolute Auto 0.2 X10*3/uL (0.0-0.4); Eosinophils Percent Auto 2.1 % (0-4); Hematocrit 33.2 % (42.0-52.0); Hemoglobin 11.2 g/dl (14.0-18.0); Imm Gran Abs Auto 0.04 X10*3/uL (0.00-0.03); Imm Gran Pct Auto 0.5 % (0.0-0.4); Lymphocytes Absolute Auto 1.5 X10*3/uL (1.2-4.9); Lymphocytes Percent Auto 20.1 % (20-40); Mean Corpuscular HGB Conc 33.7 g/dl (31.0-36.0); Mean Platelet Volume 9.2 fL (9.4-12.4); Monocytes Absolute Auto 1.1 X10*3/uL (0.1-1.2); Monocytes Percent Auto 14.1 % (2-11); Neutrophils Absolute Auto 4.6 x10*3/uL (2.0-8.3); Platelet Count 168 X10*3/uL (160-400); Red Blood Count 3.61 X10*6/uL (4.60-5.80); White Blood Count 7.5 X10*3/uL (4.8-10.8)
[2023-09-06 12:17] LABS: Anion Gap 14 (12-20); Blood Urea Nitrogen 23 mg/dL (9-16); Calcium 9.7 mg/dL (8.4-10.2); Carbon Dioxide 21 mmol/L (22-29); Chloride 108 mmol/L (96-108); Creatinine Clr Calc Pharmacy 81.6; Estimated Glomerular Filt Rate > 60; Glucose Random 109 mg/dL (60-115); Magnesium 1.6 mg/dL (1.6-2.6); Sodium 138 mmol/L (135-145)
[2023-09-06] MEDS: Folic Acid 1 MG TABLET PO (12:17)
[2023-09-06] MEDS: Thiamine HCL 100 MG TABLET PO (12:17)
[2023-09-06 12:29] LABS: Alanine Aminotransferase 16 U/L (0-40); Albumin Level 3.9 g/dL (3.5-5.0); Alkaline Phosphatase 72 U/L (39-117); Anion Gap 15 (12-20); Aspartate Amino Transferase 19 U/L (5-37); Bilirubin Total 0.5 mg/dL (0.0-1.0); Blood Urea Nitrogen 23 mg/dL (9-16); Calcium 9.3 mg/dL (8.4-10.2); Carbon Dioxide 21 mmol/L (22-29); Chloride 108 mmol/L (96-108); Creatinine Clr Calc Pharmacy 92.8; Estimated Glomerular Filt Rate > 60; Glucose Random 109 mg/dL (60-115); Potassium 5.1 mmol/L (3.3-5.1); Sodium 139 mmol/L (135-145); Total Protein 6.8 g/dL (6.5-8.0)
[2023-09-06] MEDS: Dofetilide 125 MCG CAPSULE 250 MCG PO ×2 (13:18→20:34)
[2023-09-06] MEDS: 0.9 % Sodium Chloride Flush 3 ML SYRINGE IVFLUSH (15:18)
--- NOTE | 2023-09-06 15:19 | ECG_ITS ---
Test Reason : tikosyn protocol Blood Pressure : / mmHG Vent. Rate : 067 BPM Atrial Rate : 234 BPM P-R Int : 000 ms QRS Dur : 084 ms QT Int : 446 ms P-R-T Axes : 000 -06 034 degrees QTc Int : 471 ms Atrial flutter with variable A-V block Inferior infarct (cited on or before 06-APR-2016) Possible Anterior infarct (cited on or before 06-APR-2016) Abnormal ECG When compared with ECG of 06-SEP-2023 11:19, T wave amplitude has decreased in Anterior leads QT has lengthened Referred By: Nasima Carreno Electronically Signed By:Quinn Smyth
--- NOTE | 2023-09-06 15:35 | PHA.MEDREC ---
Pharmacy Consult ? Medication Reconciliation Pharmacy has completed the medication reconciliation. confirmed medications with the patient. He stopped taking Multaq on Wednesday. He confirmed Metoprolol 50mg 1/2 tablet BID. He reports he took all of his AM medications today
[2023-09-06 16:00] VITALS: BP 131/61; PULSE 62; RESP 18; TEMP 36.7
[2023-09-06 19:51] VITALS: BP 139/69; PULSE 60; RESP 20; TEMP 36.7; O2SAT 97
[2023-09-07] VITALS (7 sets, daily range): BP systolic 121–148; BP diastolic 62–89; PULSE 63–72; RESP 16–20; TEMP 36.1–36.8; O2SAT 96–98
--- NOTE | 2023-09-07 | ECG_ITS ---
Test Reason : tikosyn loading Blood Pressure : / mmHG Vent. Rate : 066 BPM Atrial Rate : 000 BPM P-R Int : 000 ms QRS Dur : 080 ms QT Int : 448 ms P-R-T Axes : 000 -12 031 degrees QTc Int : 469 ms Atrial fibrillation Inferior infarct (cited on or before 06-APR-2016) Anterior infarct (cited on or before 06-APR-2016) Abnormal ECG When compared with ECG of 07-SEP-2023 11:07, No significant change was found Referred By: Patricio Zamorano Electronically Signed By:Quinn Smyth
[2023-09-07] MEDS: 0.9 % Sodium Chloride Flush 3 ML SYRINGE IVFLUSH ×4 (00:08→20:27)
[2023-09-07 06:28] LABS: Anion Gap 13 (12-20); Blood Urea Nitrogen 16 mg/dL (9-16); Carbon Dioxide 23 mmol/L (22-29); Chloride 105 mmol/L (96-108); Creatinine Clr Calc Pharmacy 96.9; Estimated Glomerular Filt Rate > 60; Glucose Random 98 mg/dL (60-115); Magnesium 1.6 mg/dL (1.6-2.6); Potassium 4.1 mmol/L (3.3-5.1); Sodium 137 mmol/L (135-145)
--- NOTE | 2023-09-07 07:44 | ECG_ITS ---
Test Reason : tikosyn Blood Pressure : / mmHG Vent. Rate : 061 BPM Atrial Rate : 000 BPM P-R Int : 000 ms QRS Dur : 076 ms QT Int : 446 ms P-R-T Axes : 000 -14 044 degrees QTc Int : 448 ms Atrial fibrillation Inferior infarct (cited on or before 06-APR-2016) Anterior infarct (cited on or before 06-APR-2016) Abnormal ECG When compared with ECG of 06-SEP-2023 22:28, No significant change was found Referred By: Chantel Jackson Electronically Signed By:Quinn Smyth
[2023-09-07] MEDS: Folic Acid 1 MG TABLET PO (09:09)
[2023-09-07] MEDS: Thiamine HCL 100 MG TABLET PO (09:09)
[2023-09-07] MEDS: Dofetilide 125 MCG CAPSULE 250 MCG PO (09:09)
[2023-09-07] MEDS: Acetaminophen 325 MG TABLET 650 MG PO ×3 (09:11→23:54)
--- NOTE | 2023-09-07 09:36 | PM.CNCAR ---
History of Present Illness History of Present Illness Date of Service: 09/07/23 Requesting physician: Patricio Zamorano Chief complaint: AFIB Tikosyn Loading Narrative: 68 gentleman who has known history of atrial fibrillation being admitted for Tikosyn loading. He is background history of peripheral vascular disease, alcohol use, persistent atrial fibrillation, SVT, hypertension, hyperlipidemia and coronary artery disease. He is complaining of shortness of breath and palpitations. He was admitted yesterday and was started on Tikosyn and he is received 3 doses at this point with stable QT intervals. Unfortunately he missed 1 dose of Eliquis last night. He has been given Eliquis this morning which will be continued going forward. His heart rates are well controlled and he is denying any symptoms currently. [facility] Past Medical History Medical History COVID-19 Blindness of left eye History of eye prosthesis Thyroid disease GERD (gastroesophageal reflux disease) Numbness On beta patrick at home On anticoagulant therapy Murmur PVD (peripheral vascular disease) Myocardial infarction Atrial fibrillation Alcohol dependence Post laminectomy syndrome Asthma Renal stones COPD (chronic obstructive pulmonary disease) Anemia Hepatitis C Hyperlipidemia HTN (hypertension) SVT (supraventricular tachycardia) CAD (coronary artery disease) Family History Family History Father Cancer Mother CVD (cardiovascular disease) Surgical History Surgical History Hx of eye surgery History of esophagogastroduodenoscopy (EGD) H/O colonoscopy S/P lobectomy of lung (~05/2021) Stented coronary artery Hx of thyroidectomy History of back surgery Hx of cardiac cath Social History Social History Household Members: None Housing: Apartment Are you a primary home health care worker to a significant other at home: No Do you presently have visiting nurse or other home services: No Alcohol intake: current Alcohol intake frequency: 0-2 drinks per day Alcohol type: beer Patient Tobacco Use Status: Former Tobacco user Tobacco use type: Cigarette Cigarette Packs Per Day: 1 Use of substances other than those prescribed or required for medical reasons: Yes Substance Use Type: Marijuana Substance Use Frequency: Daily Last Used Substance: Hours (ago) Last Used Substance Other:: 09/05/23 1900 Currently Displaying Signs/Symptoms of Drug Intoxication Withdrawal: No Any prior treatment program specific to substance use: No Have you been hit, kicked, punched, or otherwise hurt by someone within the past year? If so, by whom?: No Do you feel safe in your current relationship?: No Current Relationship Is there a partner from a previous relationship who is making you feel unsafe now?: No Are you made to feel afraid or neglected: No Spiritual Healthcare Practices: none per patient Spiritism Healthcare Practices: none per patient Cultural Healthcare Practices: none per patient Advance Directives: Yes Advance Directives Information Provided: No Advance Directives on File: No Advance Directives Date on File: 09/06/23 Do you have a plan to hurt others: No Plan Recently lost weight without trying: No Eating poorly because of decreased appetite: No Nutrition Risks: No Nutritional Risk Poor oral hygiene: Yes service: No Meds Allergies Allergy/AdvReac Type Severity Reaction Status Date / Time No Known Allergies Allergy Verified 08/13/23 22:30 [No Known Allergies*] Active Medications: Current Medications Acetaminophen (Acetaminophen 325 Mg Tablet) 650 mg PO Q6H PRN PRN Reason: Pain, Mild (Pain Scale 1-3) Last Admin: 09/07/23 09:11 Dose: 650 mg Al Hydroxide/Mg Hydroxide (Magnesium Hydrox/Alum Hydrox 30 Ml Oral.Susp) 30 ml PO Q4H PRN PRN Reason: Heartburn/Nausea Dofetilide (Dofetilide 125 Mcg Capsule) 250 mcg PO BID [facility] Last Admin: 09/07/23 09:09 Dose: 250 mcg Folic Acid (Folic Acid 1 Mg Tablet) 1 mg PO DAILY [facility] Last Admin: 09/07/23 09:09 Dose: 1 mg Magnesium Hydroxide (Milk Of Magnesia 30 Ml Oral.Susp) 30 ml PO DAILY PRN PRN Reason: Constipation Melatonin (Melatonin 3 Mg Tablet) 6 mg PO BEDTIME PRN PRN Reason: Insomnia Sodium Chloride (0.9 % Sodium Chloride Flush 3 Ml Syringe) 3 ml IVFLUSH QSHIFT [facility] Last Admin: 09/07/23 09:09 Dose: 3 ml Thiamine HCl (Thiamine Hcl 100 Mg Tablet) 100 mg PO DAILY [facility] Last Admin: 09/07/23 09:09 Dose: 100 mg Home Medications ?Medication ?Instructions ?Recorded ?Confirmed ?Last Taken ?Type famotidine 40 mg tablet 40 mg PO BID 04/12/20 09/06/23 06/03/23 History gabapentin 600 mg tablet 600 mg PO TID 04/12/20 09/06/23 06/03/23 History lisinopril 40 mg tablet 40 mg PO DAILY 04/12/20 09/06/23 06/03/23 History albuterol sulfate 90 mcg/actuation 2 puff inhalation QID PRN 10/26/22 09/06/23 06/03/23 History aerosol inhaler Shortness Of Breath Or Wheezing acetaminophen 325 mg tablet 1,300 mg PO DAILY 05/19/23 09/06/23 06/03/23 08:00 History aspirin 81 mg tablet,delayed 81 mg PO DAILY 05/19/23 09/06/23 06/03/23 History release cholecalciferol (vitamin D3) 25 25 mcg PO DAILY 05/19/23 09/06/23 Unknown History mcg (1,000 unit) capsule (Vitamin D3) cyanocobalamin (vitamin B-12) 500 500 mcg PO DAILY 05/19/23 09/06/23 Unknown History mcg tablet (Vitamin B-12) fluticasone fur. 200 mcg-umeclid 1 ea inhalation DAILY 05/19/23 09/06/23 06/03/23 History 62.5 mcg-vilant 25 mcg inhalat.powder (Trelegy Ellipta) ipratropium 0.5 mg-albuterol 3 mg 3 ml inhalation QID PRN Shortness 05/19/23 09/06/23 Unknown History (2.5 mg base)/3 mL nebulization Of Breath Or Wheezing soln metoprolol tartrate 50 mg tablet 25 mg PO BID 09/01/23 09/06/23 Unknown History Physical Exam Vital Signs: Vital Signs: Last Vital Signs Temp 97.6 F 09/07/23 07:37 Pulse 67 09/07/23 07:37 Resp 20 09/07/23 07:37 BP 148/87 H 09/07/23 07:37 Pulse Ox 97 09/07/23 07:37 O2 Del Method Room Air 09/07/23 07:37 BMI result Body Mass Index 32.0 GENERAL APPEARANCE: in no acute distress, pleasant. NECK: no carotid bruit, no jugular venous distention. SKIN: no suspicious lesions, warm and dry. HEART: no murmurs, irregular rate and rhythm. LUNGS: clear to auscultation bilaterally. ABDOMEN: soft, nontender. EXTREMITIES: no edema. PERIPHERAL PULSES: equal. NEUROLOGIC: No gross deficits, AAO X 3 Objective Labs and Meds 09/06/23 11:50 09/07/23 05:37 Lab results: Laboratory Results - last 24 hr 09/06/23 09/06/23 09/06/23 11:50 11:50 11:50 WBC 7.5 RBC 3.61 L Hgb 11.2 L Hct 33.2 L MCV 92.0 MCH 31.0 MCHC 33.7 RDW 14.0 Plt Count 168 MPV 9.2 L Immature Gran % (Auto) 0.5 H Neut % (Auto) 62.0 Lymph % (Auto) 20.1 [place] % (Auto) 14.1 H Eos % (Auto) 2.1 Baso % (Auto) 1.2 Lymph # (Auto) 1.5 [place] # (Auto) 1.1 Eos # (Auto) 0.2 Baso # (Auto) 0.1 Abs Immat Gran (auto) 0.04 H Absolute Neuts (auto) 4.6 Absolute Nucleated RBC 0.000 Nucleated RBC % (auto) 0.0 Hold Purple Top Hold Blue Top Sodium 139 138 Potassium 5.1 D 5.0 Chloride 108 Carbon Dioxide Anion Gap BUN Creatinine Estim Creat Clear Calc Estimated GFR Random Glucose Calcium Magnesium Total Bilirubin AST ALT Alkaline Phosphatase Total Protein Albumin 09/06/23 09/06/23 09/06/23 11:50 11:50 11:50 WBC RBC Hgb Hct MCV MCH MCHC RDW Plt Count MPV Immature Gran % (Auto) Neut % (Auto) Lymph % (Auto) [place] % (Auto) Eos % (Auto) Baso % (Auto) Lymph # (Auto) [place] # (Auto) Eos # (Auto) Baso # (Auto) Abs Immat Gran (auto) Absolute Neuts (auto) Absolute Nucleated RBC Nucleated RBC % (auto) Hold Purple Top Hold Blue Top Sodium Potassium Chloride 108 Carbon Dioxide 21 L 21 L Anion Gap 15 14 BUN 23 H Creatinine Estim Creat Clear Calc Estimated GFR Random Glucose Calcium Magnesium Total Bilirubin AST ALT Alkaline Phosphatase Total Protein Albumin 09/06/23 09/06/23 09/06/23 11:50 11:50 11:50 WBC RBC Hgb Hct MCV MCH MCHC RDW Plt Count MPV Immature Gran % (Auto) Neut % (Auto) Lymph % (Auto) [place] % (Auto) Eos % (Auto) Baso % (Auto) Lymph # (Auto) [place] # (Auto) Eos # (Auto) Baso # (Auto) Abs Immat Gran (auto) Absolute Neuts (auto) Absolute Nucleated RBC Nucleated RBC % (auto) Hold Purple Top Hold Blue Top Sodium Potassium Chloride Carbon Dioxide Anion Gap BUN 23 H Creatinine 0.95 1.08 Estim Creat Clear Calc 92.8 81.6 Estimated GFR > 60 Random Glucose Calcium Magnesium Total Bilirubin AST ALT Alkaline Phosphatase Total Protein Albumin 09/06/23 09/06/23 09/06/23 11:50 11:50 11:50 WBC RBC Hgb Hct MCV MCH MCHC RDW Plt Count MPV Immature Gran % (Auto) Neut % (Auto) Lymph % (Auto) [place] % (Auto) Eos % (Auto) Baso % (Auto) Lymph # (Auto) [place] # (Auto) Eos # (Auto) Baso # (Auto) Abs Immat Gran (auto) Absolute Neuts (auto) Absolute Nucleated RBC Nucleated RBC % (auto) Hold Purple Top Hold Blue Top Sodium Potassium Chloride Carbon Dioxide Anion Gap BUN Creatinine Estim Creat Clear Calc Estimated GFR > 60 Random Glucose 109 109 Calcium 9.3 9.7 Magnesium 1.6 Total Bilirubin 0.5 AST 19 ALT 16 Alkaline Phosphatase 72 Total Protein 6.8 Albumin 3.9 09/07/23 05:37 WBC RBC Hgb Hct MCV MCH MCHC RDW Plt Count MPV Immature Gran % (Auto) Neut % (Auto) Lymph % (Auto) [place] % (Auto) Eos % (Auto) Baso % (Auto) Lymph # (Auto) [place] # (Auto) Eos # (Auto) Baso # (Auto) Abs Immat Gran (auto) Absolute Neuts (auto) Absolute Nucleated RBC Nucleated RBC % (auto) Hold Purple Top SEE NOTE Hold Blue Top SEE NOTE Sodium 137 Potassium 4.1 Chloride 105 Carbon Dioxide 23 Anion Gap 13 BUN 16 Creatinine 0.91 Estim Creat Clear Calc 96.9 Estimated GFR > 60 Random Glucose 98 Calcium 10.0 Magnesium 1.6 Total Bilirubin AST ALT Alkaline Phosphatase Total Protein Albumin Assessment and Plan (1) Persistent atrial fibrillation: Status: Acute Plan [age] year gentleman with persistent symptomatic atrial fibrillation here for Tikosyn loading. He has been on 250 mcg twice a day of Tikosyn in his QT intervals have been stable. Continues to be in atrial fibrillation at this point. Unfortunately has missed dose of Eliquis yesterday night. In case we have to cardiovert we will have to do JIM cardioversion. Eliquis should not be stopped from here onwards. Increasing the Tikosyn to 500 mcg twice a day. Hopefully converse with Tikosyn and can be discharged home after that. He should have 12 hours of monitoring after converting to sinus rhythm in case he converts before the 6 doses are completed. EKGs as before 2-3 hours after any dose given to the patient. Keep potassium more than 4 and magnesium more than 2. Thank you for allowing me to participate in the care of your patient. Please feel free to contact me if you have any questions. Procedures Date of Service Date of Service: 09/07/23
[2023-09-07] MEDS: Metoprolol Tartrate 25 MG TABLET PO ×2 (10:05→20:23)
[2023-09-07] MEDS: Apixaban 5 MG TABLET PO ×2 (10:05→20:23)
[2023-09-07] MEDS: lisinopriL 40 MG TABLET PO (10:06)
[2023-09-07] MEDS: Aspirin Enteric Coated 81 MG TABLET.DR PO (10:06)
[2023-09-07] MEDS: Gabapentin 600 MG TABLET PO ×3 (10:06→20:22)
[2023-09-07] MEDS: Cholecalciferol (Vitamin D3) 25 MCG TABLET PO (10:06)
[2023-09-07] MEDS: amLODIPine Besylate 10 MG TABLET PO (10:06)
[2023-09-07] MEDS: Famotidine 20 MG TABLET 40 MG PO ×2 (10:06→20:20)
--- NOTE | 2023-09-07 10:23 | MHC.CM.PN ---
IMM 09/07/23, Pt lives alone, HCP is his son, Vipin, form to be completed here. For DME he has a nebulizer. He does not have home health services, he is able to arrange transport at [facility]. PCP is Dr. Fermin. DCP: home, self care. CM to follow for DC needs.
[2023-09-07] MEDS: Cyanocobalamin (Vitamin B-12) 500 MCG TABLET PO (10:33)
--- NOTE | 2023-09-07 11:07 | ECG_ITS ---
Test Reason : MEDICATION CK QT Blood Pressure : / mmHG Vent. Rate : 078 BPM Atrial Rate : 000 BPM P-R Int : 000 ms QRS Dur : 074 ms QT Int : 418 ms P-R-T Axes : 000 -13 041 degrees QTc Int : 476 ms Atrial fibrillation with premature ventricular or aberrantly conducted complexes Inferior infarct (cited on or before 06-APR-2016) Anterior infarct (cited on or before 06-APR-2016) Abnormal ECG When compared with ECG of 07-SEP-2023 08:30, No significant change was found Referred By: Chantel Jackson Electronically Signed By:Quinn Smyth
[2023-09-07] MEDS: Fluticasone/Umeclidinium/Vilanterol 200/62.5/25 BLST.W.DEV 1 PUFF INHALE (12:15)
--- NOTE | 2023-09-07 13:06 | HO.PM.IMPN ---
Subjective Subjective Date of Service: 09/07/23 Interval History: f/u Ticosyn loading for AFIB initiated yesterday, he remains in AFIB at this time with no other complaint Physical Exam Vital Signs: Vital Signs: Last Vital Signs Temp 97 F 09/07/23 11:25 Pulse 72 09/07/23 11:25 Resp 20 09/07/23 11:25 BP 136/89 09/07/23 11:25 Pulse Ox 98 09/07/23 11:25 O2 Del Method Room Air 09/07/23 11:25 BMI result Body Mass Index 32.0 General: AO X 3, no acute distress Resp: CTA bilateral iregular iregular GI: +BS, NT, no distention Skin: No rash Neuro: motor grossly intact Psych: appropriate affect Objective Data Active Medications Acetaminophen (Acetaminophen 325 Mg Tablet) 650 mg PO Q6H PRN PRN Reason: Pain, Mild (Pain Scale 1-3) Last Admin: 09/07/23 09:11 Dose: 650 mg Documented By: ZEUS Al Hydroxide/Mg Hydroxide (Magnesium Hydrox/Alum Hydrox 30 Ml Oral.Susp) 30 ml PO Q4H PRN PRN Reason: Heartburn/Nausea Albuterol Sulfate (Albuterol Sulfate 90 Mcg 8 Gm Inhaler) 2 puff INHALE QID PRN PRN Reason: Shortness Of Breath Or Wheezing Albuterol/Ipratropium (Albuterol/Iprat 2.5/0.5mg 3 Ml Ampul.Neb) 3 ml INHALE QID PRN PRN Reason: Shortness Of Breath Or Wheezing Amlodipine Besylate (Amlodipine Besylate 10 Mg Tablet) 10 mg PO DAILY [facility]; Protocol Last Admin: 09/07/23 10:06 Dose: 10 mg Documented By: ZEUS Apixaban (Apixaban 5 Mg Tablet) 5 mg PO BID [facility] Last Admin: 09/07/23 10:05 Dose: 5 mg Documented By: ZEUS Aspirin (Aspirin Enteric Coated 81 Mg Tablet.) 81 mg PO DAILY [facility] Last Admin: 09/07/23 10:06 Dose: 81 mg Documented By: ZEUS Atorvastatin Calcium (Atorvastatin Calcium 40 Mg Tablet) 40 mg PO BEDTIME [facility] Cyanocobalamin (Cyanocobalamin (Vitamin B-12) 500 Mcg Tablet) 500 mcg PO DAILY [facility] Last Admin: 09/07/23 10:33 Dose: 500 mcg Documented By: ZEUS Dofetilide (Dofetilide 125 Mcg Capsule) 250 mcg PO BID [facility] Last Admin: 09/07/23 09:09 Dose: 250 mcg Documented By: ZEUS Comments: EKG QTC 446/448 EKG QTC post 4188/476 Famotidine (Famotidine 20 Mg Tablet) 40 mg PO BID [facility] Last Admin: 09/07/23 10:06 Dose: 40 mg Documented By: ZEUS Fluticasone/Umeclidinium/Vilanterol (Fluticasone/Umeclidinium/Vilanterol 200/62.5/25 Blst.W.Dev) 1 puff INHALE RDAILY [facility] Last Admin: 09/07/23 12:15 Dose: 1 puff Documented By: ZEUS Folic Acid (Folic Acid 1 Mg Tablet) 1 mg PO DAILY [facility] Last Admin: 09/07/23 09:09 Dose: 1 mg Documented By: ZEUS Gabapentin (Gabapentin 600 Mg Tablet) 600 mg PO TID [facility] Last Admin: 09/07/23 10:06 Dose: 600 mg Documented By: ZEUS Lisinopril (Lisinopril 40 Mg Tablet) 40 mg PO DAILY [facility]; Protocol Last Admin: 09/07/23 10:06 Dose: 40 mg Documented By: ZEUS Magnesium Hydroxide (Milk Of Magnesia 30 Ml Oral.Susp) 30 ml PO DAILY PRN PRN Reason: Constipation Melatonin (Melatonin 3 Mg Tablet) 6 mg PO BEDTIME PRN PRN Reason: Insomnia Metoprolol Tartrate (Metoprolol Tartrate 25 Mg Tablet) 25 mg PO BID [facility]; Protocol Last Admin: 09/07/23 10:05 Dose: 25 mg Documented By: ZEUS Sodium Chloride (0.9 % Sodium Chloride Flush 3 Ml Syringe) 3 ml IVFLUSH [facility] Last Admin: 09/07/23 09:09 Dose: 3 ml Documented By: ZEUS Thiamine HCl (Thiamine Hcl 100 Mg Tablet) 100 mg PO DAILY [facility] Last Admin: 09/07/23 09:09 Dose: 100 mg Documented By: ZEUS Vitamin D (Cholecalciferol (Vitamin D3) 25 Mcg Tablet) 25 mcg PO DAILY [facility] Last Admin: 09/07/23 10:06 Dose: 25 mcg Documented By: ZEUS Labs 09/06/23 11:50 09/07/23 05:37 Labs: Laboratory Results - last 24 hr 09/07/23 05:37 Hold Purple Top SEE NOTE Hold Blue Top SEE NOTE Anion Gap 13 Estim Creat Clear Calc 96.9 Estimated GFR > 60 Random Glucose 98 Calcium 10.0 Magnesium 1.6 Assessment and Plan (1) Persistent atrial fibrillation: Status: Acute Plan 68-year-old male with history of persistent atrial fibrillation on Multaq and anticoagulated with Eliquis, SVT, COPD, coronary artery disease, hypertension, hyperlipidemia, post-laminectomy syndrome, aortic stenosis, and alcohol use disorder consuming about 4 hard alcohol beverages on a daily basis admitted for tikosyn load. # persistent atrial fibrillation-rate controlled -Tikosyn load per cardiology- initiate 250mg BID, adjusted per cardiology, ECGs as needed per protocol -continue Eliquis for anticoagulation -discontinue Multaq -continue metoprolol 25 mg b.i.d. for rate control -may ultimately need cardioversion # alcohol use disorder -not currently in acute withdrawal. Monitor on CIWA q.4h -if scoring on CIWA, consider initiating phenobarbital per protocol -p.o. thiamine, folic acid -addiction medicine consult # COPD -no acute exacerbation -continue maintenance inhalers, albuterol p.r.n. # CAD/HLD -continue ASA, statin, beta-patrick # hypertension -blood pressure reasonably controlled -continue amlodipine, metoprolol, lisinopril # post laminectomy syndrome -continue home pain medications DVT prophylaxis-Eliquis full code Patient requires inpatient stay at least 2 midnights for Tikosyn load requiring cardiac monitoring, EKG monitoring, electrolyte monitoring for 72 hours per FDA requirements. He will also require expert consultation Quality Stroke Does the patient have a stroke diagnosis?: No VTE Prior VTE?: No VTE Risk Level:: Medical - moderate - high VTE Device Contraindication: Treatment Not Indicated VTE Drug Contraindication: N/A - Med Ordered
--- NOTE | 2023-09-07 13:55 | MHC.RECOVRN ---
Met with pt in 469 after consult placed for alcohol use. Pt admitted to the hospital due to persistent atrial fibrillation. Pt sitting in bed, awake, alert, difficult to engage in conversation, appears comfortable. Pt reports a couple vodka drinks per day. Denies withdrawal symptoms, has not scored on CIWA, is not receiving medication for withdrawal management. Pt does not engage in conversation, however, reports not having concerns regarding alcohol use. Pt agreeable to written resources as well as t/w contact information. Encouraged pt to call with any questions or concerns. Discussed with Ariadne Gar APRN.
[2023-09-07] MEDS: Magnesium Sulfate/H2O 2 GM/50 ML PIGGYBACK IV (16:34)
[2023-09-07] MEDS: Magnesium Oxide 400 MG TABLET PO (16:39)
--- NOTE | 2023-09-07 19:49 | ECG_ITS ---
Test Reason : QT CK Blood Pressure : / mmHG Vent. Rate : 064 BPM Atrial Rate : 277 BPM P-R Int : 000 ms QRS Dur : 076 ms QT Int : 434 ms P-R-T Axes : 000 -19 035 degrees QTc Int : 447 ms Atrial fibrillation Inferior infarct (cited on or before 06-APR-2016) Anterior infarct (cited on or before 06-APR-2016) Abnormal ECG When compared with ECG of 07-SEP-2023 16:28, No significant changes seen Referred By: Chantel Jackson Electronically Signed By:Quinn Smyth
[2023-09-07] MEDS: Atorvastatin Calcium 40 MG TABLET PO (20:23)
[2023-09-07] MEDS: Dofetilide 125 MCG CAPSULE 500 MCG PO (20:24)
--- NOTE | 2023-09-07 23:41 | ECG_ITS ---
Test Reason : QT CK Blood Pressure : / mmHG Vent. Rate : 059 BPM Atrial Rate : 000 BPM P-R Int : 000 ms QRS Dur : 080 ms QT Int : 476 ms P-R-T Axes : 000 -13 048 degrees QTc Int : 471 ms Atrial fibrillation with slow ventricular response Inferior infarct (cited on or before 06-APR-2016) Anterior infarct (cited on or before 06-APR-2016) Abnormal ECG When compared with ECG of 07-SEP-2023 19:49, No significant changes seen Referred By: Chantel Jackson Electronically Signed By:Quinn Smyth
[2023-09-08] VITALS (9 sets, daily range): BP systolic 115–131; BP diastolic 59–94; PULSE 57–85; RESP 18–20; TEMP 36.2–36.6; O2SAT 95–99
--- NOTE | 2023-09-08 00:40 | MHC.PIE ---
P.3 SECOND PAUSE I.PT HAD 3 SECOND PAUSE,ASLEEP,ASYMPTOMANIC WHEN AWAKENED.REPORTED TO DR VALI. SKINNER TO MONITOR.
[2023-09-08 07:34] LABS: Anion Gap 14 (12-20); Blood Urea Nitrogen 15 mg/dL (9-16); Calcium 10.1 mg/dL (8.4-10.2); Carbon Dioxide 23 mmol/L (22-29); Chloride 103 mmol/L (96-108); Creatinine Clr Calc Pharmacy 80.1; Estimated Glomerular Filt Rate > 60; Glucose Random 116 mg/dL (60-115); Magnesium 1.8 mg/dL (1.6-2.6); Potassium 4.4 mmol/L (3.3-5.1); Sodium 136 mmol/L (135-145)
[2023-09-08] MEDS: Fluticasone/Umeclidinium/Vilanterol 200/62.5/25 BLST.W.DEV 1 PUFF INHALE (07:39)
--- NOTE | 2023-09-08 07:44 | ECG_ITS ---
Test Reason : medication initiation Blood Pressure : / mmHG Vent. Rate : 067 BPM Atrial Rate : 067 BPM P-R Int : 356 ms QRS Dur : 078 ms QT Int : 462 ms P-R-T Axes : 085 -20 035 degrees QTc Int : 488 ms Sinus rhythm with 1st degree A-V block Inferior infarct (cited on or before 06-APR-2016) Anterior infarct (cited on or before 06-APR-2016) Abnormal ECG When compared with ECG of 07-SEP-2023 23:42, Sinus rhythm has replaced Atrial fibrillation Referred By: Chantel Jackson Electronically Signed By:Quinn Smyth
[2023-09-08] MEDS: Magnesium Sulfate/H2O 2 GM/50 ML PIGGYBACK IV (08:59)
[2023-09-08] MEDS: Metoprolol Tartrate 25 MG TABLET PO (09:00)
[2023-09-08] MEDS: Dofetilide 125 MCG CAPSULE 500 MCG PO (09:00)
[2023-09-08] MEDS: Aspirin Enteric Coated 81 MG TABLET.DR PO (09:00)
[2023-09-08] MEDS: Folic Acid 1 MG TABLET PO (09:01)
[2023-09-08] MEDS: amLODIPine Besylate 10 MG TABLET PO (09:01)
[2023-09-08] MEDS: Famotidine 20 MG TABLET 40 MG PO (09:01)
[2023-09-08] MEDS: Magnesium Oxide 400 MG TABLET PO ×2 (09:01→17:17)
[2023-09-08] MEDS: Cholecalciferol (Vitamin D3) 25 MCG TABLET PO (09:01)
[2023-09-08] MEDS: Apixaban 5 MG TABLET PO (09:01)
[2023-09-08] MEDS: Thiamine HCL 100 MG TABLET PO (09:01)
[2023-09-08] MEDS: Gabapentin 600 MG TABLET PO ×2 (09:01→15:29)
[2023-09-08] MEDS: 0.9 % Sodium Chloride Flush 3 ML SYRINGE IVFLUSH ×2 (09:02→15:31)
[2023-09-08] MEDS: lisinopriL 40 MG TABLET PO (09:02)
[2023-09-08] MEDS: Cyanocobalamin (Vitamin B-12) 500 MCG TABLET PO (09:02)
--- NOTE | 2023-09-08 10:53 | PM.DS ---
DS: Providers Provider Date of Service: 09/08/23 Date of admission: 09/06/23 09:45 Primary care physician: Kojo Fermin MD Consults: 09/06/23 10:20 Consult to Cardiology Routine Consulting Provider: [facility] [place] [facility] Reason for consultation: tikosyn load 09/06/23 12:14 Addiction Medicine Routine Consulting Provider: Addiction Covering Reason for consultation: alcohol use disorder complicating afib picture DS: Diagnosis Discharge Diagnosis (1) Persistent atrial fibrillation: Status: Acute DS: Summary Hospital Course Hospital Course: admission hpi Chief Complaint: tikosyn load 68-year-old male with history of persistent atrial fibrillation on Multaq and anticoagulated with Eliquis, SVT, COPD, coronary artery disease, hypertension, hyperlipidemia, post-laminectomy syndrome, aortic stenosis, and alcohol use disorder consuming about 4 hard alcohol beverages on a daily basis admitted to med/tele at the recommendation of Cardiology for Tikosyn load. The patient has been symptomatic with fatigue and dyspnea on exertion for several months and has failed Multaq therapy. On arrival to the core, vital signs are within normal limits 6 for mild hypertension 148/82. Hematology studies unremarkable except for a stable, chronic anemia with H/H 11.2/33.2%. Creatinine , BUN , lytes . EKG shows atrial flutter with variable AV spencer block, rate 62 without any acute ischemic changes. QTC 418. The patient will be admitted for Tikosyn load with cardiac monitoring. Hospital course: Patient was admitted and loaded with Tikosyn with close monitoring of ECG, QTCs and electrolytes, starting at 250 mg bid, Tikosyn level was later increased to 500 ng bidd and he converted out of aflutter less than 48 hours and now with first degree AVB. He was monitored for an additional 12 hours. QTC was within normal range. Magnesium was 1.6 and given supplement. To go home with Tikosyn 500 mg twice daily and to stop Metoprolol Time Attestation Discharge Coordination Time (in mins): 35 Quality: Safe Use of Opioids Does Pt have an Active Cancer Diagnosis on the Problem List?: No Quality: Stroke Does the patient have a stroke diagnosis?: No Physical Exam Vital Signs: Vital Signs: Last Vital Signs Temp 97.4 F 09/08/23 07:49 Pulse 85 09/08/23 09:00 Resp 20 09/08/23 07:49 BP 119/59 L 09/08/23 09:02 Pulse Ox 95 09/08/23 07:49 O2 Del Method Room Air 09/08/23 07:49 BMI result Body Mass Index 32.0 General: AO X 3, no acute distress Resp: CTA bilateral CVS: S1,S2,RRR GI: +BS, NT, no distention Skin: No rash Neuro: motor grossly intact Psych: appropriate affect DS: Data Data Completed and Pending Labs on day of discharge: Laboratory Results - last 24 hr 09/08/23 07:08 Hold Purple Top SEE NOTE Sodium 136 Potassium 4.4 Chloride 103 Carbon Dioxide 23 Anion Gap 14 BUN 15 Creatinine 1.10 Estim Creat Clear Calc 80.1 Estimated GFR > 60 Random Glucose 116 H Calcium 10.1 Magnesium 1.8 Discharge Plan Discharge Anticipated Discharge Date/Time: 09/08/23 10:54 Patient Disposition: Home, Self-Care Discharge Diagnosis: Atrial fibrilation Referrals: Physician,Unknown J [Physician] - 1 Week Discharge Medications: New magnesium oxide 400 mg (241.3 mg magnesium) Tablet 400 mg PO BIDPC Qty: 120 0RF dofetilide [Tikosyn] 125 mcg Capsule 500 mcg PO BID Qty: 180 0RF Continued omega-3 acid ethyl esters 1 gram capsule 2 cap PO BID Qty: 90 3RF amlodipine 10 mg tablet 10 mg PO DAILY Qty: 90 3RF Eliquis 5 mg tablet 5 mg PO BID Qty: 60 5RF Hold Instructions: Resume on 06/06/23. hold for 48 hours atorvastatin 40 mg tablet 40 mg PO BEDTIME Qty: 90 1RF aspirin 81 mg Tablet,Delayed Release (Dr/Ec) 81 mg PO DAILY cyanocobalamin (vitamin B-12) [Vitamin B-12] 500 mcg Tablet 500 mcg PO DAILY cholecalciferol (vitamin D3) [Vitamin D3] 25 mcg (1,000 unit) Capsule 25 mcg PO DAILY acetaminophen 325 mg Tablet 1,300 mg PO DAILY Patient Comments: TOOK 650MG [id number] Trelegy Ellipta 200-62.5-25 mcg blister with device 1 ea INHALATION DAILY ipratropium-albuterol 0.5 mg-3 mg(2.5 mg base)/3 mL Solution For Nebulization 3 ml INHALATION QID PRN (Reason: Shortness Of Breath Or Wheezing) gabapentin 600 mg tablet 600 mg PO TID lisinopril 40 mg tablet 40 mg PO DAILY famotidine 40 mg tablet 40 mg PO BID albuterol sulfate 90 mcg/actuation HFA aerosol inhaler 2 puff inhalation QID PRN (Reason: Shortness Of Breath Or Wheezing) Discontinued metoprolol tartrate 50 mg tablet 25 mg PO BID Diet: Advance to usual diet Activity on Discharge: As tolerated Stand Alone Forms: Patient Portal Discharge page Print Language: Polish Care Plan Goals: To maintain sinus rhythm and prevent complications of arial fibirlation Health Concerns: atril fibriliation first degree av blocl Plan of Treatment: stop taking meotoprolol take Tikosyn 500 mg twice daily take magnesium supplment as ordered continue other usual medication Avoid alcohol follow up with your heart doctor follow up with your primary care doctor in a week, call for appontment Assessment: see above
--- NOTE | 2023-09-08 11:13 | ECG_ITS ---
Test Reason : tikosyn Blood Pressure : / mmHG Vent. Rate : 069 BPM Atrial Rate : 069 BPM P-R Int : 392 ms QRS Dur : 074 ms QT Int : 442 ms P-R-T Axes : 069 -28 036 degrees QTc Int : 473 ms Sinus rhythm with 1st degree A-V block Inferior infarct (cited on or before 06-APR-2016) Anterior infarct (cited on or before 06-APR-2016) Abnormal ECG When compared with ECG of 08-SEP-2023 07:03, No significant change was found Referred By: Chantel Jackson Electronically Signed By:Quinn Smyth
--- NOTE | 2023-09-08 11:28 | PM.PNCARD ---
Subjective Subjective Date of Service: 09/08/23 Interval history: Seen examined at bedside. He has reverted to sinus rhythm at this point with Tikosyn 500 mcg twice a day. Physical Exam Vital Signs: Last Vital Signs Temp 97.4 F 09/08/23 07:49 Pulse 85 09/08/23 09:00 Resp 20 09/08/23 07:49 BP 119/59 L 09/08/23 09:02 Pulse Ox 95 09/08/23 07:49 O2 Del Method Room Air 09/08/23 07:49 BMI result Body Mass Index 32.0 GENERAL APPEARANCE: in no acute distress, pleasant. NECK: no carotid bruit, no jugular venous distention. SKIN: no suspicious lesions, warm and dry. HEART: no murmurs, regular rate and rhythm. LUNGS: clear to auscultation bilaterally. ABDOMEN: soft, nontender. EXTREMITIES: no edema. PERIPHERAL PULSES: equal. NEUROLOGIC: No gross deficits, AAO X 3 Objective Labs and Meds 09/06/23 11:50 09/08/23 07:08 Lab results: Laboratory Results - last 24 hr 09/08/23 07:08 Hold Purple Top SEE NOTE Sodium 136 Potassium 4.4 Chloride 103 Carbon Dioxide 23 Anion Gap 14 BUN 15 Creatinine 1.10 Estim Creat Clear Calc 80.1 Estimated GFR > 60 Random Glucose 116 H Calcium 10.1 Magnesium 1.8 Progress Note: A&P Assessment and plan (1) Persistent atrial fibrillation: Status: Acute Plan Pleasant 68 gentleman with persistent atrial fibrillation who was admitted for Tikosyn loading. At a dose of 500 mg twice a day he has converted to sinus rhythm. He has a marked first-degree AV block of 392 milliseconds. 08/09/2023 EKG when he was in sinus rhythm showed a marked first-degree AV block of 380 milliseconds. I think we stopped the metoprolol. Continue the Tikosyn. Magnesium is 1.8 and he should be on oral magnesium supplements. Abstinence from alcohol. Follow-up with Dr. Em. Thank you for allowing me to participate in the care of your patient. Please feel free to contact me if you have any questions. Time Spent With Patient Time: Total time managing care of this patient today ____ minutes. Progress Note: Quality Stroke Does the patient have a stroke diagnosis?: No Procedures Date of Service Date of Service: 09/08/23
== END 2023-09-08 18:33 | disposition home or self-care (01) | DRG 310 ==
PROVIDERS: Physician Assistant; Admitting Provider Internal Medicine Cardiovascular Disease; PCP Internal Medicine; Visit Provider Internal Medicine
DX: I48.19 Other persistent atrial fibrillation (principal); I25.10 Atherosclerotic heart disease of native coronary artery without angina pectoris; J44.9 Chronic obstructive pulmonary disease, unspecified; F10.90 Alcohol use, unspecified, uncomplicated; I73.9 Peripheral vascular disease, unspecified; E78.5 Hyperlipidemia, unspecified; I10 Essential (primary) hypertension; M96.1 Postlaminectomy syndrome, not elsewhere classified; Z90.2 Acquired absence of lung [part of]; Z87.891 Personal history of nicotine dependence; Z79.01 Long term (current) use of anticoagulants; Z79.82 Long term (current) use of aspirin; Z79.899 Other long term (current) drug therapy
CPT/HCPCS: 36415; 80048; 80053; 83735; 85025; 93005; J3475

== ENCOUNTER 2023-09-06 09:45 | Outpatient (BNV) | payer MEDICARE, MEDICAID, SELFPAY | END 2023-09-06 10:27 | PROVIDERS: Admitting Provider Internal Medicine Cardiovascular Disease; Visit Provider Internal Medicine Cardiovascular Disease | DX: I48.92 Unspecified atrial flutter (principal); I44.30 Unspecified atrioventricular block | CPT/HCPCS: 93010 ==

== ENCOUNTER 2023-09-06 09:45 | Outpatient (BNV) | payer MEDICARE, MEDICAID, SELFPAY | END 2023-09-08 07:44 | PROVIDERS: Admitting Provider Internal Medicine Cardiovascular Disease; PCP Internal Medicine; Visit Provider Internal Medicine Cardiovascular Disease | DX: I48.19 Other persistent atrial fibrillation (principal) | CPT/HCPCS: 93010 ==

== ENCOUNTER → 2023-09-06 09:45 | Outpatient (BNV) | payer MEDICARE, MEDICAID, SELFPAY | PROVIDERS: Admitting Provider Internal Medicine Cardiovascular Disease; PCP Internal Medicine; Visit Provider Internal Medicine Cardiovascular Disease | DX: I48.19 Other persistent atrial fibrillation (principal) | CPT/HCPCS: 99223; 99233 ==

== ENCOUNTER → 2023-09-06 09:45 | Outpatient (BNV) | payer MEDICARE, MEDICAID, SELFPAY | PROVIDERS: Admitting Provider Internal Medicine Cardiovascular Disease; PCP Internal Medicine; Visit Provider Physician Assistant | DX: I48.19 Other persistent atrial fibrillation (principal) | CPT/HCPCS: 99223; 99232; 99239 ==

== ENCOUNTER 2023-09-14 14:40 | Outpatient (AMB) | payer MEDICARE, MEDICAID, SELFPAY ==
[2023-09-14 15:12] VITALS: BP 90/58; PULSE 36; BMI 31.2
--- NOTE | 2023-09-14 15:12 | MHC.OFFVIS ---
Vital Signs 09/14/23 15:12 Height 6 ft Weight 230 lb BMI 31.2 BMI Reason not done Patient refused/unable BP 90/58 L Blood Pressure Location Rt brachial Position Sitting Pulse 36 L Pulse Source Monitor Intake Visit Reasons: follow-up need ekg stopped tykosin Allergies No Known Allergies [No Known Allergies*] Allergy (Verified 08/13/23 22:30) Medication List - Last Reconciled 09/14/23 by Harleen Crain NP acetaminophen 1,300 mg PO DAILY albuterol sulfate 90 mcg/actuation 2 puffs inhalation QID PRN amlodipine 10 mg PO DAILY apixaban (Eliquis) 5 mg PO BID aspirin 81 mg PO DAILY atorvastatin 40 mg PO BEDTIME cholecalciferol (vitamin D3) (Vitamin D3) 25 mcg PO DAILY cyanocobalamin (vitamin B-12) (Vitamin B-12) 500 mcg PO DAILY famotidine 40 mg PO BID [id number] 200-62.5-25 mcg (Trelegy Ellipta) 1 ea inhalation DAILY gabapentin 600 mg PO TID ipratropium-albuterol 0.5 mg-3 mg(2.5 mg base)/3 mL 3 mL inhalation QID PRN lisinopril 40 mg PO DAILY magnesium oxide 400 mg PO BIDPC metoprolol succinate ER 25 mg PO BID omega-3 acid ethyl esters 2 caps PO BID HPI Comments Details: 68-year-old male presents today via wheelchair. He had seen cardioverted on 09/[address] Smyth and transitioned onto Tikosyn. Dr. Fermin spoke with Dr. Em yesterday and the patient was changed to Metoprolol. Patient reports today that he is feeling very unwell. He has been unsteady and having multiple falls. He was at work yesterday became diaphoretic and had an episode of chest pain. He also had an episode where his vision turned to the color purple [facility] Medical History (Updated 09/14/23 @ 15:35 by Harleen Crain NP) Junctional bradycardia COVID-19 Blindness of left eye History of eye prosthesis Thyroid disease GERD (gastroesophageal reflux disease) Numbness On beta patrick at home On anticoagulant therapy Murmur PVD (peripheral vascular disease) Myocardial infarction Atrial fibrillation Alcohol dependence Post laminectomy syndrome Asthma Renal stones COPD (chronic obstructive pulmonary disease) Anemia Hepatitis C Hyperlipidemia HTN (hypertension) SVT (supraventricular tachycardia) CAD (coronary artery disease) Surgical History (Updated 09/09/23 @ 00:02 by Kathie Armas) Hx of eye surgery History of esophagogastroduodenoscopy (EGD) H/O colonoscopy S/P lobectomy of lung (~05/2021) Stented coronary artery Hx of thyroidectomy History of back surgery Hx of cardiac cath Family History Father Cancer Mother CVD (cardiovascular disease) Social History Household Members: None Housing: Apartment Are you a primary landcare officer to a significant other at home: No Do you presently have visiting nurse or other home services: No Alcohol intake: current Alcohol intake frequency: 0-2 drinks per day Alcohol type: beer Patient Tobacco Use Status: Former Tobacco user Tobacco use type: Cigarette Cigarette Packs Per Day: 1 Substance Use Type: Marijuana Advance Directives Date on File: 09/06/23 service: No Review of Systems Const Denies weakness ENT Denies dizziness Card Reports chest pain, Denies chest pain with activity, Denies syncope, Denies rapid heart rate, Denies pedal edema, Denies edema, Denies leg edema, Denies lightheadedness, Denies palpitations, Denies dyspnea, Denies dyspnea on exertion and Denies orthopnea Resp Denies cough, Denies dyspnea and Denies dyspnea on exertion GI Denies hematochezia and Denies change in stool character Musc Denies abnormal gait, Denies muscle cramps, Denies muscle weakness, Denies numbness, Denies radiating pain into limb and Denies tingling Neuro Denies abnormal gait, Denies dizziness, Denies syncope, Denies numbness, Denies tingling and Denies weakness Endo Denies palpitations Physical Exam Vital Signs: Last Vital Signs Pulse 36 L 09/14/23 15:12 BP 90/58 L 09/14/23 15:12 BMI result Body Mass Index 31.2 Office Procedures EKG Details: EKG today. Junctional Bradycardia. Rightward axis. Septal Infarct, age undetermined. Vent rate 36 bpm. QTc 470ms [id number], Complete Assessment & Plan Assessment & Plan (1) Junctional bradycardia: Code(s): R00.1 - Bradycardia, unspecified Category: Medical Plan Symptomatic. Patient going to emergency department. Escorted via wheelchair. Report giving to [facility]. Coding Level of Care Code Est Pt Level 3 (04804) Diagnoses Junctional bradycardia R00.1 CPT Codes EKG - CPT: 42287-[id number], Complete ([id number])
== END 2023-09-14 15:41 | disposition home or self-care (01) ==
PROVIDERS: PCP Internal Medicine; Visit Provider Nurse Practitioner
DX: I45.89 Other specified conduction disorders (principal)
CPT/HCPCS: 93010; 99213

== ENCOUNTER → 2023-09-14 14:40 | Outpatient (BNVA) | payer MEDICARE, MEDICAID, SELFPAY | PROVIDERS: PCP Internal Medicine; Visit Provider Nurse Practitioner | DX: R00.1 Bradycardia, unspecified (principal) ==

== ENCOUNTER 2023-09-14 15:35 | Inpatient (IN) | payer MEDICARE, MEDICAID, SELFPAY ==
[2023-09-14] VITALS (11 sets, daily range): BP systolic 86–128; BP diastolic 35–73; PULSE 29–95; RESP 10–18; TEMP 36.4–37.2; O2SAT 93–100; BMI 37.2
--- NOTE | 2023-09-14 | ECG_ITS ---
Test Reason : HIGH K, Blood Pressure : / mmHG Vent. Rate : 074 BPM Atrial Rate : 098 BPM P-R Int : 000 ms QRS Dur : 090 ms QT Int : 432 ms P-R-T Axes : 102 026 055 degrees QTc Int : 479 ms Sinus rhythm with A-V dissociation Inferior infarct (cited on or before 06-APR-2016) Possible Anterior infarct (cited on or before 06-APR-2016) Abnormal ECG When compared with ECG of 14-SEP-2023 16:16, AV dissociation is now present Questionable change in initial forces of Septal leads ST no longer depressed in Anterior leads QT has lengthened Referred By: Alondra Benton Electronically Signed By:ASHANTI SANTIAGO MD
--- NOTE | ~2023-09-14 | XR_ITS ---
EXAMINATION: XR CHEST CLINICAL INFORMATION: Shortness of breath COMPARISON: Previous chest x-ray most recent July 2023 TECHNIQUE: Frontal view of the chest was obtained. FINDINGS: No significant abnormality is noted involving the heart, lungs, mediastinum, bony thorax or soft tissues. XR/XR chest 1V IMPRESSION: Unremarkable examination.
--- NOTE | 2023-09-14 15:46 | ED_ITS ---
HPI - General Adult General Chief complaint: Arrhythmia/Palpitations Stated complaint: pt fell patient from cardiology has ekg low pb anu Time Seen by Provider: 09/14/23 15:51 Source: patient Mode of arrival: ambulatory Limitations: no limitations History of Present Illness ED Provider: Dr. Mis Braun HPI narrative: patient comes to the emergency room complaining of dizziness and a fall. Patient states that the fall was not caused by dizziness. Patient states that it was a mechanical fall, tripped and landed on his knees, did not hit his head, did not lose consciousness, patient takes Eliquis for atrial fibrillation. Patient states that recently he was cardioverted on September 07, he has had multiple medication changes, unclear if he is taking metoprolol versus tykosin versus Multaq. patient states that at this time he has no chest pain or shortness of breath but feels very lightheaded. Related Data Home Medications ?Medication ?Instructions ?Recorded ?Confirmed famotidine 40 mg tablet 40 mg PO BID 04/12/20 09/14/23 gabapentin 600 mg tablet 600 mg PO BID 04/12/20 09/14/23 lisinopril 40 mg tablet 40 mg PO DAILY 04/12/20 09/14/23 albuterol sulfate 90 mcg/actuation 2 puff inhalation QID PRN 10/26/22 09/14/23 aerosol inhaler Shortness Of Breath Or Wheezing acetaminophen 325 mg tablet 650 mg PO DAILY PRN Pain 05/19/23 09/14/23 aspirin 81 mg tablet,delayed 81 mg PO DAILY 05/19/23 09/14/23 release cholecalciferol (vitamin D3) 25 25 mcg PO DAILY 05/19/23 09/14/23 mcg (1,000 unit) capsule (Vitamin D3) cyanocobalamin (vitamin B-12) 500 500 mcg PO DAILY 05/19/23 09/14/23 mcg tablet (Vitamin B-12) fluticasone fur. 200 mcg-umeclid 1 ea inhalation DAILY 05/19/23 09/14/23 62.5 mcg-vilant 25 mcg inhalat.powder (Trelegy Ellipta) ipratropium 0.5 mg-albuterol 3 mg 3 ml inhalation QID PRN Shortness 05/19/23 09/14/23 (2.5 mg base)/3 mL nebulization Of Breath Or Wheezing soln atorvastatin 40 mg tablet 40 mg PO DAILY 09/14/23 09/14/23 magnesium oxide 400 mg (241.3 mg 400 mg PO BIDWM 09/14/23 09/14/23 magnesium) tablet metoprolol succinate 25 mg 25 mg PO BID 09/14/23 09/14/23 tablet,extended release 24 hr Previous Rx's ?Medication ?Instructions ?Recorded omega-3 acid ethyl esters 1 gram 2 cap PO BID #90 caps 01/27/21 capsule amlodipine 10 mg tablet 10 mg PO DAILY #90 tabs 09/09/22 apixaban 5 mg tablet (Eliquis) 5 mg PO BID #60 tabs 05/21/23 Allergies Allergy/AdvReac Type Severity Reaction Status Date / Time No Known Allergies Allergy Verified 09/14/23 15:50 [No Known Allergies*] Review of Systems 2 Review of Systems: Constitutional : No Weight loss, No Fever, No Chills, No Night Sweats, No Fatigue, No Malaise ENT/Mouth : No Hearing loss, No Ear Pain, No Nasal Congestion, No Sinus Pain, No Hoarseness, No sore throat, No Rhinorrhea, No Swallowing Difficulty Eyes: No Eye Pain, No Swelling, No Redness, No Foreign Body, No Discharge, No Vision Changes Cardiovascular : No Chest Pain, No SOB, No Dyspnea on Exertion, No Orthopnea, No Edema, No Palpitations Respiratory : No Cough, No Sputum, No Wheezing, No Smoke Exposure, No Dyspnea Gastrointestinal : No Nausea, No Vomiting, No Diarrhea, No Constipation, No abdominal Pain, No Hematochezia, No Melena Genitourinary : no irregular bleeding, No Dysuria, No Urinary Frequency, No Hematuria, No Urinary Incontinence, No Urgency, No Flank Pain, No Urinary Flow Changes, No Hesitancy Musculoskeletal : Complaining of bilateral knee after sustaining a mechanical fall, No joint pain, No Myalgias, No Joint Swelling Skin : No Skin Lesions, No rash Neuro : No Weakness, No Numbness, No Paresthesias, No Loss of Consciousness, complaining of dizziness Psych : No Anxiety/Panic, No Depression, No SI/HI/AH/VH, No Social Issues, Heme/Lymph: No Bruising, No Bleeding,No Lymphadenopathy Endocrine : No Polyuria, No Polydipsia, No Temperature Intolerance [facility] Past Medical History Medical History Junctional bradycardia COVID-19 Blindness of left eye History of eye prosthesis Thyroid disease GERD (gastroesophageal reflux disease) Numbness On beta patrick at home On anticoagulant therapy Murmur PVD (peripheral vascular disease) Myocardial infarction Atrial fibrillation Alcohol dependence Post laminectomy syndrome Asthma Renal stones COPD (chronic obstructive pulmonary disease) Anemia Hepatitis C Hyperlipidemia HTN (hypertension) SVT (supraventricular tachycardia) CAD (coronary artery disease) Surgical History (Updated 09/09/23 @ 00:02 by Kathie Armas) Hx of eye surgery History of esophagogastroduodenoscopy (EGD) H/O colonoscopy S/P lobectomy of lung (~05/2021) Stented coronary artery Hx of thyroidectomy History of back surgery Hx of cardiac cath Family History Family History Father Cancer Mother CVD (cardiovascular disease) Social History Social History Household Members: None Housing: Apartment Are you a primary career development counselor to a significant other at home: No Do you presently have visiting nurse or other home services: No Alcohol intake: current Alcohol intake frequency: 3 or more drinks per day Alcohol type: hard liquor Patient Tobacco Use Status: Former Tobacco user Tobacco use type: Cigarette Cigarette Packs Per Day: 1 Smoked in Last 30 Days: No Use of substances other than those prescribed or required for medical reasons: No Substance Use Type: Marijuana Advance Directives: Yes Advance Directives on File: Yes Advance Directives Date on File: 09/09/23 Do you have a plan to hurt others: No Plan service: No Physical Exam ED Vital Signs: Vital Signs - 24 hr 09/14/23 15:47 09/14/23 16:37 09/14/23 17:16 Temperature 98.9 F Pulse Rate 34 L 31 L 43 L Respiratory Rate 18 10 L 12 Blood Pressure 102/40 L 119/50 L 114/57 L Pulse Oximetry 100 97 97 Oxygen Delivery Method Room Air Room Air Room Air 09/14/23 17:38 09/14/23 18:13 09/14/23 18:23 Temperature Pulse Rate 29 L 33 L 37 L Respiratory Rate 12 16 14 Blood Pressure 99/35 L 86/39 L 105/45 L Pulse Oximetry 99 95 93 Oxygen Delivery Method Room Air Aerosol Mask Room Air 09/14/23 19:00 09/14/23 19:40 09/14/23 19:46 Temperature Pulse Rate 71 87 86 Respiratory Rate 18 18 Blood Pressure 120/64 128/73 Pulse Oximetry 98 Oxygen Delivery Method Room Air BMI result Body Mass Index 37.2 Const Other: Appearance: Alert. Oriented X3. No acute distress. Eyes: Pupils equal, round and reactive to light. ENT: Pharynx normal. Neck: Normal inspection. Neck supple. No lymph nodes noted. No crepitus CVS: bradycardia, heart rate in the low 30s, +2 systolic murmur left sternal border Respiratory: No respiratory distress. Breath sounds normal. No Wheezing. No rales Abdomen: Soft and nontender. No rigidity. No distention. Skin: Skin warm and dry. Normal skin color. Normal skin turgor. Extremities: No lower extremity edema. No Lacerations. No Rash Neuro: Oriented X 3. No motor deficit. No sensory deficit. Moving all extremities. No slurred speech. CN 2 through 12 grossly intact Psych: calm, cooperative, normal affect Course Course Course Narrative: This is a rapid medical exam performed by Emily Pate NP: Additional HPI, ROS, PE not included below will be deferred to primary provider. Patient is a 68-year-old male presenting to the ED from cardiology office, brought to waiting room in a wheelchair, with complaint of weakness, multiple falls, vision changes (seeing purple). 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 cutter aluminum sheet notified and patient brought directly to main ED. Medications Administered Generic Name Dose Route Start Last Admin Trade Name Freq PRN Reason Stop Dose Admin Dextrose 250 mls @ 750 mls/hr 09/14/23 17:09 09/14/23 19:53 D10 IV 750 mls/hr Q15M PRN Administration per Hypoglycemia Standing Ord. Discontinued Medications Generic Name Dose Route Start Last Admin Trade Name Freq PRN Reason Stop Dose Admin Albuterol Sulfate 10 mg 09/14/23 17:13 09/14/23 17:35 Albuterol Sulfate (0.083%) 2.5 Mg/3 Ml Vial.Neb INHALE 09/14/23 17:14 10 mg ONCE ONE Administration Albuterol Sulfate 10 mg 09/14/23 19:36 09/14/23 19:45 Albuterol Sulfate (0.083%) 2.5 Mg/3 Ml Vial.Neb INHALE 09/14/23 19:37 10 mg ONCE ONE Administration Glucagon 1 mg 09/14/23 16:18 09/14/23 16:33 Glucagon Hcl 1 Mg Vial IVPUSH 09/14/23 16:19 1 mg ONCE ONE Administration Sodium Chloride 1,000 mls @ 999 mls/hr 09/14/23 16:51 09/14/23 19:18 Ns IVCONT 09/14/23 17:51 Infused .Q1H1M ONE Infusion Calcium Gluconate 2 gm in 100 mls @ 50 mls/hr 09/14/23 17:09 09/14/23 19:19 Calcium Gluconate IV 09/14/23 19:08 Infused ONCE ONE Infusion Insulin Human Regular 10 unit 09/14/23 17:09 09/14/23 17:22 Insulin Regular, Human 100 Unit/Ml 10 Ml Vial IVPUSH 09/14/23 17:10 10 unit ONCE ONE Administration Insulin Human Regular 10 unit 09/14/23 19:36 09/14/23 19:51 Insulin Regular, Human 100 Unit/Ml 10 Ml Vial IVPUSH 09/14/23 19:37 10 unit ONCE ONE Administration Phenobarbital Sodium 310 mg 09/14/23 17:30 09/14/23 19:29 Phenobarbital Sodium 130 Mg/Ml Im Once IM 09/14/23 17:31 Not Given ONCE ONE Sodium Bicarbonate 50 meq 09/14/23 17:09 09/14/23 17:21 Sodium Bicarbonate 8.4% 50 Meq/50 Ml Syringe IVPUSH 09/14/23 17:10 50 meq ONCE ONE Administration Sodium Bicarbonate 50 meq 09/14/23 19:36 09/14/23 19:51 Sodium Bicarbonate 8.4% 50 Meq/50 Ml Syringe IVPUSH 09/14/23 19:37 50 meq ONCE ONE Administration Sodium Zirconium Cyclosilicate 10 gm 09/14/23 17:09 09/14/23 17:22 Sodium Zirconium Cyclosilicate 10 Gm Powd.Pack PO 09/14/23 17:10 10 gm ONCE ONE Administration Medical Decision Making Medical Decision Making MDM Narrative: - patient's heart rate in the low 30s, blood pressure 102/40 - my interpretation of EKG, junctional bradycardia, heart rate 34, no ST segment depression or elevation, no T-wave inversion, QTC 423 - at this time no chest pain or shortness of breath, patient complaining of dizziness from getting transferred from the wheelchair to his bed - patient is prophylactically on pacer pads in case we need to use them. Discussed with the patient that regardless of the workup, patient needs to be admitted. Patient agrees with plan. - patient was given 1 mg IV push glucagon in case patient accidentally overdose with metoprolol - discussed with the patient that he needs to stay in bed at all times, not to get up for any reason. - I discussed the patient with Dr. Em, patient was restarted on metoprolol yesterday, no longer on Multaq or Tikosyn. Also, patient needs to be NPO starting at midnight since tomorrow patient may need a dual-chamber pacemaker - of note, patient admitted that he drinks vodka every day, 4-6 glasses of sodium mixed with vodka - at this time, patient has no signs of alcohol withdrawal. Patient was started on phenobarb protocol - Received a phone call from the lab, patient's potassium is 7.4, creatinine 2.61. Patient has no peaked T-waves on EKG. We are going to repeat a potassium level again. The creatinine level elevation is new for the patient. Patient receiving IV fluids - patient's potassium 7.4, confirmed by lab. Patient receiving calcium gluconate, albuterol nebulizations, Lokelma, sodium bicarb push, glucose and insulin - after patient received a dose of glucagon, patient's heart rate increased to the 60s. - Overall, patient's blood pressure steady, 119/50, heart rate in the low 60s - patient remains prophylactically on pacer pads they are physically on the patient but pacing not indicated at this time however, it was noted that once patient's potassium started decreasing, no 6.1, the heart rate started to increase. Patient has blood pressures in the 120s systolic with heart rate between 80 and 90. Patient states that he feels very well, no chest pain or shortness of breath or dizziness. - Potassium still 6.1, patient is receiving a 2nd round of medications to decrease the potassium. - Tomorrow, patient likely to be seen by Nephrology, it remains unclear why patient is in JOVITA. Per pharmacy, it may be secondary to metoprolol? - Patient's blood pressure 128/73, heart rate 86, oxygen saturation 98% on room air, respiratory rate 18 - Patient to be re-evaluated tomorrow by Cardiology, may be patient will not need a pacemaker - I discussed the patient with Dr. Serrato, patient being admitted. Differential Diagnosis Differential Diagnoses: The differential diagnosis associated with the presentation includes ( bradycardia,) Admission/Observation Consideration of admission/observation: Escalation of care including admission/observation considered Consult Healthcare Provider Management of the patient was discussed with: Hospitalist and Payroll Specialist Lab Data MDM Lab Attestation statement: I reviewed the patient's lab results. 09/14/23 16:07 09/14/23 18:48 Labs: Lab Results 09/14/23 09/14/23 09/14/23 Range/Units 16:07 16:45 18:06 WBC 9.0 (4.8-10.8) X10*3/uL RBC 3.49 L (4.60-5.80) X10*6/uL Hgb 10.8 L (14.0-18.0) g/dl Hct 31.8 L (42.0-52.0) % MCV 91.1 (80.0-98.0) fL MCH 30.9 (27.0-33.0) pg MCHC 34.0 (31.0-36.0) g/dl RDW 14.2 (11.0-16.0) % Plt Count 248 D (160-400) X10*3/uL MPV 9.2 L (9.4-12.4) fL Immature Gran % (Auto) 1.5 H (0.0-0.4) % Neut % (Auto) 67.9 (45-73) % Lymph % (Auto) 14.2 L (20-40) % [place] % (Auto) 14.3 H (2-11) % Eos % (Auto) 1.3 (0-4) % Baso % (Auto) 0.8 (0-2) % Lymph # (Auto) 1.3 (1.2-4.9) X10*3/uL [place] # (Auto) 1.3 H (0.1-1.2) X10*3/uL Eos # (Auto) 0.1 (0.0-0.4) X10*3/uL Baso # (Auto) 0.1 (0.0-0.2) X10*3/uL Abs Immat Gran (auto) 0.13 H (0.00-0.03) X10*3/uL Absolute Neuts (auto) 6.1 (2.0-8.3) x10*3/uL Absolute Nucleated RBC 0.000 (0.0-0.012) X10*3/uL Nucleated RBC % (auto) 0.0 (0.0-0.2) /100WBC PT 21.6 H D (11.1-13.3) SEC INR 1.8 H (0.9-1.1) Sodium 132 L 129 L (135-145) mmol/L Potassium 7.2 H* D 7.4 H* (3.3-5.1) mmol/L Chloride 102 103 (96-108) mmol/L Carbon Dioxide 21 L 17 L (22-29) mmol/L Anion Gap 16 16 (12-20) BUN 49 H 46 H (9-16) mg/dL Creatinine 2.61 H 2.50 H (0.5-1.4) mg/dL Estim Creat Clear Calc 36.3 37.9 Estimated GFR 24 26 POC Glucose 124 H (60-115) mg/dL Random Glucose 114 136 H (60-115) mg/dL Calcium 10.0 9.6 (8.4-10.2) mg/dL Magnesium 2.8 H (1.6-2.6) mg/dL Total Bilirubin 0.4 (0.0-1.0) mg/dL AST 14 (5-37) U/L ALT 14 (0-40) U/L Alkaline Phosphatase 71 (39-117) U/L Troponin I High Sens 10.0 D (<3.5-35.0) ng/L B-Natriuretic Peptide 1005 H (<100) pg/mL Total Protein 7.3 (6.5-8.0) g/dL Albumin 4.1 (3.5-5.0) g/dL Urine Color Urine Appearance Urine pH (5.0-9.0) Ur Specific [place] (1.005-1.025) Urine Protein (Neg-Trace) mg/dL Urine Glucose (UA) (Negative) mg/dL Urine Ketones (Negative) mg/dL Urine Blood (Negative) Urine Nitrite (Negative) Ur Leukocyte Esterase (Negative) Urine Opiates Screen (Not Detect) Ur Buprenorphine Scrn (Not Detect) ng/mL Ur Oxycodone Screen (Not Detect) ng/mL Urine Methadone Screen (Not Detect) ng/mL Urine Fentanyl Screen (Not Detect) Ur Barbiturates Screen (Not Detect) Ur Phencyclidine Scrn (Not Detect) Ur Amphetamines Screen (Not Detect) U Benzodiazepines Scrn (Not Detect) Urine Cocaine Screen (Not Detect) U Marijuana (THC) Screen (Not Detect) Ethyl Alcohol < 10 mg/dL 09/14/23 09/14/23 09/14/23 Range/Units 18:48 18:58 19:47 WBC (4.8-10.8) X10*3/uL RBC (4.60-5.80) X10*6/uL Hgb (14.0-18.0) g/dl Hct (42.0-52.0) % MCV (80.0-98.0) fL MCH (27.0-33.0) pg MCHC (31.0-36.0) g/dl RDW (11.0-16.0) % Plt Count (160-400) X10*3/uL MPV (9.4-12.4) fL Immature Gran % (Auto) (0.0-0.4) % Neut % (Auto) (45-73) % Lymph % (Auto) (20-40) % [place] % (Auto) (2-11) % Eos % (Auto) (0-4) % Baso % (Auto) (0-2) % Lymph # (Auto) (1.2-4.9) X10*3/uL [place] # (Auto) (0.1-1.2) X10*3/uL Eos # (Auto) (0.0-0.4) X10*3/uL Baso # (Auto) (0.0-0.2) X10*3/uL Abs Immat Gran (auto) (0.00-0.03) X10*3/uL Absolute Neuts (auto) (2.0-8.3) x10*3/uL Absolute Nucleated RBC (0.0-0.012) X10*3/uL Nucleated RBC % (auto) (0.0-0.2) /100WBC PT (11.1-13.3) SEC INR (0.9-1.1) Sodium 131 L (135-145) mmol/L Potassium 6.1 H* (3.3-5.1) mmol/L Chloride 104 (96-108) mmol/L Carbon Dioxide 22 (22-29) mmol/L Anion Gap 11 L (12-20) BUN 46 H (9-16) mg/dL Creatinine 2.32 H (0.5-1.4) mg/dL Estim Creat Clear Calc 40.9 Estimated GFR 28 POC Glucose 147 H (60-115) mg/dL Random Glucose 145 H (60-115) mg/dL Calcium 9.5 (8.4-10.2) mg/dL Magnesium (1.6-2.6) mg/dL Total Bilirubin (0.0-1.0) mg/dL AST (5-37) U/L ALT (0-40) U/L Alkaline Phosphatase (39-117) U/L Troponin I High Sens (<3.5-35.0) ng/L B-Natriuretic Peptide (<100) pg/mL Total Protein (6.5-8.0) g/dL Albumin (3.5-5.0) g/dL Urine Color Yellow Urine Appearance Clear Urine pH 5.5 (5.0-9.0) Ur Specific [place] 1.010 (1.005-1.025) Urine Protein Negative (Neg-Trace) mg/dL Urine Glucose (UA) Negative (Negative) mg/dL Urine Ketones Negative (Negative) mg/dL Urine Blood Negative (Negative) Urine Nitrite Negative (Negative) Ur Leukocyte Esterase Negative (Negative) Urine Opiates Screen Not Detected (Not Detect) Ur Buprenorphine Scrn Not Detected (Not Detect) ng/mL Ur Oxycodone Screen Not Detected (Not Detect) ng/mL Urine Methadone Screen Not Detected (Not Detect) ng/mL Urine Fentanyl Screen Not Detected (Not Detect) Ur Barbiturates Screen Not Detected (Not Detect) Ur Phencyclidine Scrn Not Detected (Not Detect) Ur Amphetamines Screen Not Detected (Not Detect) U Benzodiazepines Scrn Not Detected (Not Detect) Urine Cocaine Screen Not Detected (Not Detect) U Marijuana (THC) Screen Not Detected (Not Detect) Ethyl Alcohol mg/dL Independent Interpretation I performed an independent interpretation of an: EKG External Record Review External record reviewed: Inpatient record, Prior outpatient labs and Other ( cardiology records) Critical Care Time Critical Care Time Critical Care Time: Yes Total Critical Care Time: 80 Attestation: I have personally provided critical care time. Time includes review of lab data, radiology results, discussion with consultants, and monitoring for potential decompensation. Intervention performed as documented. Discharge Plan Discharge Clinical Impression: Symptomatic bradycardia, JOVITA (acute kidney injury), Acute hyperkalemia Patient Disposition: Admitted As Inpatient Print Language: Syriac
--- NOTE | 2023-09-14 15:51 | ECG_ITS ---
Test Reason : SHAGUFTA Blood Pressure : / mmHG Vent. Rate : 034 BPM Atrial Rate : 000 BPM P-R Int : 000 ms QRS Dur : 078 ms QT Int : 564 ms P-R-T Axes : 000 079 012 degrees QTc Int : 423 ms Junctional bradycardia Inferior infarct (cited on or before 06-APR-2016) Anteroseptal infarct (cited on or before 06-APR-2016) Abnormal ECG When compared with ECG of 08-SEP-2023 11:13, Junctional rhythm has replaced Sinus rhythm Vent. rate has decreased BY 35 BPM Questionable change in initial forces of Inferior leads Non-specific change in ST segment in Inferior leads ST now depressed in Anterolateral leads Referred By: Nicol Pate Electronically Signed By:
[2023-09-14 16:14] LABS: MANUAL DIFF FLAG NO
[2023-09-14 16:15] LABS: Basophils Absolute Auto 0.1 X10*3/uL (0.0-0.2); Basophils Percent Auto 0.8 % (0-2); Eosinophils Absolute Auto 0.1 X10*3/uL (0.0-0.4); Eosinophils Percent Auto 1.3 % (0-4); Hematocrit 31.8 % (42.0-52.0); Hemoglobin 10.8 g/dl (14.0-18.0); Imm Gran Abs Auto 0.13 X10*3/uL (0.00-0.03); Imm Gran Pct Auto 1.5 % (0.0-0.4); Lymphocytes Absolute Auto 1.3 X10*3/uL (1.2-4.9); Lymphocytes Percent Auto 14.2 % (20-40); Mean Corpuscular Hemoglobin 30.9 pg (27.0-33.0); Mean Corpuscular Volume 91.1 fL (80.0-98.0); Mean Platelet Volume 9.2 fL (9.4-12.4); Monocytes Absolute Auto 1.3 X10*3/uL (0.1-1.2); Monocytes Percent Auto 14.3 % (2-11); Neutrophils Absolute Auto 6.1 x10*3/uL (2.0-8.3); Neutrophils Percent Auto 67.9 % (45-73); Platelet Count 248 X10*3/uL (160-400); Red Blood Count 3.49 X10*6/uL (4.60-5.80); Red Cell Distribution Width 14.2 % (11.0-16.0)
[2023-09-14 16:20] LABS: INTERNATIONAL NORM RATIO 1.8 (0.9-1.1); Prothrombin Time 21.6 SEC (11.1-13.3)
[2023-09-14] MEDS: glucagon HCL 1 MG VIAL IVPUSH (16:33)
[2023-09-14 16:38] LABS: Alanine Aminotransferase 14 U/L (0-40); Albumin Level 4.1 g/dL (3.5-5.0); Alkaline Phosphatase 71 U/L (39-117); Anion Gap 16 (12-20); Aspartate Amino Transferase 14 U/L (5-37); Bilirubin Total 0.4 mg/dL (0.0-1.0); Blood Urea Nitrogen 49 mg/dL (9-16); Carbon Dioxide 21 mmol/L (22-29); Chloride 102 mmol/L (96-108); Creatinine Clr Calc Pharmacy 36.3; Estimated Glomerular Filt Rate 24; Glucose Random 114 mg/dL (60-115); Potassium 7.2 mmol/L (3.3-5.1); Sodium 132 mmol/L (135-145); Total Protein 7.3 g/dL (6.5-8.0)
[2023-09-14 17:06] LABS: Ethanol < 10 mg/dL
[2023-09-14] MEDS: 0.9 % Sodium Chloride 1,000 ML 999 ML IVCONT ×2 (17:06→21:11)
[2023-09-14 17:07] LABS: Magnesium 2.8 mg/dL (1.6-2.6)
[2023-09-14 17:10] LABS: Anion Gap 16 (12-20); Blood Urea Nitrogen 46 mg/dL (9-16); Calcium 9.6 mg/dL (8.4-10.2); Carbon Dioxide 17 mmol/L (22-29); Chloride 103 mmol/L (96-108); Creatinine Clr Calc Pharmacy 37.9; Estimated Glomerular Filt Rate 26; Glucose Random 136 mg/dL (60-115); Potassium 7.4 mmol/L (3.3-5.1); Sodium 129 mmol/L (135-145)
[2023-09-14] MEDS: Calcium Gluconate/NaCl,Iso-Osm 2 GM/100 ML PLAST..BAG IV (17:18)
[2023-09-14 17:19] LABS: B Type Natriuretic Peptide 1005 pg/mL (<100)
[2023-09-14] MEDS: Sodium Bicarbonate 8.4% 50 MEQ/50 ML SYRINGE IVPUSH ×2 (17:21→19:51)
[2023-09-14] MEDS: Insulin Regular, Human 100 UNIT/ML 10 ML VIAL 10 UNIT IVPUSH ×2 (17:22→19:51)
[2023-09-14] MEDS: Sodium Zirconium Cyclosilicate 10 GM POWD.PACK PO (17:22)
[2023-09-14] MEDS: Dextrose 10 % 250 ML 750 ML IV ×2 (17:28→19:53)
[2023-09-14] MEDS: Albuterol Sulfate (0.083%) 2.5 MG/3 ML VIAL.NEB 10 MG INHALE ×2 (17:35→19:45)
--- NOTE | 2023-09-14 17:49 | PC.NURSE ---
Spoke to Dr. Braun regarding phenobarb dose, okay to hold until admitting provider sees patient. Patient not in withdrawal at this time, no symptoms noted.
[2023-09-14 18:10] LABS: Glucose, Whole Blood 124 mg/dL (60-115)
--- NOTE | 2023-09-14 18:31 | PHA.MEDREC ---
Pharmacy Consult ? Medication Reconciliation Pharmacy has completed the medication reconciliation. Completed med rec with patient. He confirmed he is taking Eliquis 5mg twice a day. He stated that he is on-off of this medication per his doctor but as of right now he is currently taking it.
[2023-09-14 19:02] LABS: Glucose, Whole Blood 147 mg/dL (60-115)
[2023-09-14 19:21] LABS: Anion Gap 11 (12-20); Blood Urea Nitrogen 46 mg/dL (9-16); Calcium 9.5 mg/dL (8.4-10.2); Carbon Dioxide 22 mmol/L (22-29); Chloride 104 mmol/L (96-108); Creatinine Clr Calc Pharmacy 40.9; Estimated Glomerular Filt Rate 28; Glucose Random 145 mg/dL (60-115); Potassium 6.1 mmol/L (3.3-5.1); Sodium 131 mmol/L (135-145)
[2023-09-14 19:53] LABS: Appearance Urine Clear; Color Urine Yellow; Glucose Urine UA Negative (Negative); Leukocyte Esterase Urine Negative (Negative); Nitrite Urine Negative (Negative); PH 5.5 (5.0-9.0); Urine Blood Negative (Negative); Urine Ketones Negative (Negative); Urine Protein Negative (Neg-Trace)
[2023-09-14 20:05] LABS: Amphetamine Screen Urine Not Detected (Not Detect); Barbiturates, Urine Not Detected (Not Detect); Benzodiazepines Screen Urine Not Detected (Not Detect); Buprenorphine Scr Not Detected (Not Detect); Cannabinoid Screen Urine Not Detected (Not Detect); Cocaine Screen Urine Not Detected (Not Detect); Fentanyl, urine Not Detected (Not Detect); Methadone Screen, Urine Not Detected (Not Detect); Opiate Screen Urine Not Detected (Not Detect); Oxycodone Screen Urine Not Detected (Not Detect); Phencyclidine Screen Urine Not Detected (Not Detect)
[2023-09-14 20:37] LABS: Glucose, Whole Blood 175 mg/dL (60-115)
--- NOTE | 2023-09-14 21:02 | PC.NURSE ---
Spoke to Dr. Serrato regarding phenobarb dose, informed provider that first dose of phenobarb was held d/t BP and HR at the time. Patient currently does not have any withdrawal symptoms, HR and BP improved, okay to hold phenobarb? Dr. Serrato responded okay to continue to hold phenobarb, monitor CIWA.
--- NOTE | 2023-09-14 21:24 | PC.NURSE ---
Dr. vazquez to re order phenobarb loading protocol to start at 2300 so patient can get full loading dose.
[2023-09-14] MEDS: Thiamine HCL 100 MG in 0.9 % Sodium Chloride 100 ML 202 MG IV (21:29)
--- NOTE | 2023-09-14 21:30 | PM.IMHP ---
History of Present Illness Date of Service: 09/14/23 Attending physician on admission: Alondra Benton Chief Complaint: Dizziness, chest pain Shane Nichole is a 68 years old man with past medical history significant for alcohol abuse, essential hypertension, hyperlipidemia, coronary artery disease, persistent atrial fibrillation on chronic anticoagulation with Eliquis, hep C and moderate aortic stenosis presents to the emergency department complaining of 2 day history of mild retrosternal chest pain, dizziness unsteady gait. He also reports some shortness on breath. He had a recent mechanical fall landing on his knees and denies head trauma. Denied nausea, vomiting, diarrhea, cough, headache fevers or chills. Denies any acute bleeding or use of diuretics. He does take lisinopril. He continues to drink alcohol about 4 drinks drinks of vodka and soda (16 oz) -last drink was last night and said that he has not interested about quitting alcohol consumption. He denied illicit drug use. Chart review: Cardiology note September 07 - metoprolol was stopped and to continue Tikosyn. Cardiology notes from today: Patient was changed to metoprolol. Patient reports to cardiology provider that he was at work yesterday became diaphoretic, had an episode of chest pain and an episode of color purple vision. In the ED, he was found to have marked bradycardia (lowest 29) and hypotension (lowest 86/36). Oxygen saturation and temperature are normal. Blood workup was remarkable for marked hyperkalemia of 7.4, bicarb 17, creatinine of 2.61 and magnesium 2.8. Anion gap is normal. BNP is 1105 and troponin is negative. UA showed no evidence of UTI. Toxicology is negative and ethanol level is < 10. CXR is negative for acute changes. ECG - junctional bradycardia with a heart rate of 34 beats per minutes. Most recent vital signs (9:33 PM) - ED tx: NS 2 L bolus, bicarb 50 mEq IV X2, albuterol 10 mg inhalerX2, insulin 10 mg IV, glucose 1 mg IV, calcium gluconate 2 g IV, Lokelma 10 g PO. Review of Systems Review of Systems: All 12 systems were reviewed and normal except as noted in HPI. [facility] Medical History Junctional bradycardia COVID-19 Blindness of left eye History of eye prosthesis Thyroid disease GERD (gastroesophageal reflux disease) Numbness On beta patrick at home On anticoagulant therapy Murmur PVD (peripheral vascular disease) Myocardial infarction Atrial fibrillation Alcohol dependence Post laminectomy syndrome Asthma Renal stones COPD (chronic obstructive pulmonary disease) Anemia Hepatitis C Hyperlipidemia HTN (hypertension) SVT (supraventricular tachycardia) CAD (coronary artery disease) Family History Father Cancer Mother CVD (cardiovascular disease) Surgical History (Updated 09/09/23 @ 00:02 by Kathie Armas) Hx of eye surgery History of esophagogastroduodenoscopy (EGD) H/O colonoscopy S/P lobectomy of lung (~05/2021) Stented coronary artery Hx of thyroidectomy History of back surgery Hx of cardiac cath Social History Household Members: None Housing: Apartment Are you a primary housekeeper child care to a significant other at home: No Do you presently have visiting nurse or other home services: No Alcohol intake: current Alcohol intake frequency: 3 or more drinks per day Alcohol type: hard liquor Patient Tobacco Use Status: Former Tobacco user Tobacco use type: Cigarette Cigarette Packs Per Day: 1 Substance Use Type: Marijuana Advance Directives Date on File: 09/09/23 service: No Meds Allergies Allergy/AdvReac Type Severity Reaction Status Date / Time No Known Allergies Allergy Verified 09/14/23 15:50 [No Known Allergies*] Active Medications: Current Medications Acetaminophen (Acetaminophen 325 Mg Tablet) 650 mg PO Q6H PRN PRN Reason: Pain, Mild (Pain Scale 1-3), fever or headache Apixaban (Apixaban 5 Mg Tablet) 5 mg PO BID [facility] Aspirin (Aspirin Enteric Coated 81 Mg Tablet.Dr) 81 mg PO DAILY [facility] Atorvastatin Calcium (Atorvastatin Calcium 40 Mg Tablet) 40 mg PO DAILY [facility] Cyanocobalamin (Cyanocobalamin (Vitamin B-12) 500 Mcg Tablet) 500 mcg PO DAILY [facility] Famotidine (Famotidine 20 Mg Tablet) 20 mg PO DAILY [facility] Fluticasone/Umeclidinium/Vilanterol (Fluticasone/Umeclidinium/Vilanterol 200/62.5/25 Blst.W.Dev) 1 puff INHALE RDAILY [facility] Folic Acid (Folic Acid 1 Mg Tablet) 1 mg PO DAILY [facility] Dextrose (D10) 250 mls @ 750 mls/hr IV Q15M PRN PRN Reason: per Hypoglycemia Standing Ord. Last Infusion: 09/14/23 20:20 Dose: Infused Dextrose (D10) 250 mls @ 750 mls/hr IV Q15M PRN PRN Reason: per Hypoglycemia Standing Ord. Sodium Chloride (Ns) 1,000 mls @ 999 mls/hr IVCONT .Q1H1M ONE Stop: 09/14/23 21:46 Last Admin: 09/14/23 21:11 Dose: 999 mls/hr Sodium Chloride (Ns) 1,000 mls @ 100 mls/hr IVCONT .Q10H [facility] Thiamine HCl 100 mg/ Sodium (Chloride) 101 mls @ 202 mls/hr IV DAILY [facility] Stop: 09/18/23 08:59 Magnesium Oxide (Magnesium Oxide 400 Mg Tablet) 400 mg PO BIDWM [facility] Multivitamins/Vitamin C (Multivitamin Tablet) 1 tab PO DAILY [facility] Pharmacy Consult (Consult Rx Etoh Phenob Im/Po) 1 each MISCELLANE ONCE PRN; Protocol PRN Reason: Consult order Phenobarbital (Phenobarbital 30 Mg Tablet) 60 mg PO BID [facility] Stop: 09/16/23 21:01 Phenobarbital (Phenobarbital 30 Mg Tablet) 30 mg PO BID [facility] Stop: 09/18/23 21:01 Phenobarbital (Phenobarbital 30 Mg Tablet) 30 mg PO DAILY [facility] Stop: 09/20/23 09:01 Phenobarbital Sodium (Phenobarbital Sodium 130 Mg/Ml Vial Im Q3hx2) 233 mg IM Q3H [facility] Stop: 09/14/23 23:31 Last Admin: 09/14/23 21:02 Dose: Not Given Sodium Chloride (0.9 % Sodium Chloride Flush 3 Ml Syringe) 3 ml IVFLUSH QSHIFT [facility] Vitamin D (Cholecalciferol (Vitamin D3) 25 Mcg Tablet) 25 mcg PO DAILY [facility] Home Medications ?Medication ?Instructions ?Recorded ?Confirmed ?Last Taken ?Type famotidine 40 mg tablet 40 mg PO BID 04/12/20 09/14/23 09/14/23 06:30 History gabapentin 600 mg tablet 600 mg PO BID 04/12/20 09/14/23 09/14/23 06:30 History lisinopril 40 mg tablet 40 mg PO DAILY 01/09/14/23 09/14/23 06:30 History albuterol sulfate 90 mcg/actuation 2 puff inhalation QID PRN 10/26/22 09/14/23 09/14/23 06:30 History aerosol inhaler Shortness Of Breath Or Wheezing acetaminophen 325 mg tablet 650 mg PO DAILY PRN Pain 05/19/23 09/14/23 09/14/23 06:30 History aspirin 81 mg tablet,delayed 81 mg PO DAILY 05/19/23 09/14/23 09/14/23 06:30 History release cholecalciferol (vitamin D3) 25 25 mcg PO DAILY 05/19/23 09/14/23 09/14/23 06:30 History mcg (1,000 unit) capsule (Vitamin D3) cyanocobalamin (vitamin B-12) 500 500 mcg PO DAILY 05/19/23 09/14/23 09/14/23 06:30 History mcg tablet (Vitamin B-12) fluticasone fur. 200 mcg-umeclid 1 ea inhalation DAILY 05/19/23 09/14/23 09/14/23 06:30 History 62.5 mcg-vilant 25 mcg inhalat.powder (Trelegy Ellipta) ipratropium 0.5 mg-albuterol 3 mg 3 ml inhalation QID PRN Shortness 05/19/23 09/14/23 09/14/23 06:30 History (2.5 mg base)/3 mL nebulization Of Breath Or Wheezing soln atorvastatin 40 mg tablet 40 mg PO DAILY 09/14/23 09/14/23 09/14/23 06:30 History magnesium oxide 400 mg (241.3 mg 400 mg PO BIDWM 09/14/23 09/14/23 09/14/23 06:30 History magnesium) tablet metoprolol succinate 25 mg 25 mg PO BID 09/14/23 09/14/23 09/14/23 06:30 History tablet,extended release 24 hr Physical Exam Vital Signs and Narrative: Vital Signs: Last Vital Signs Temp 98.9 F 09/14/23 15:47 Pulse 91 09/14/23 20:41 Resp 14 09/14/23 20:41 BP 122/58 L 09/14/23 20:41 Pulse Ox 95 09/14/23 20:41 O2 Del Method Room Air 09/14/23 20:41 BMI result Body Mass Index 37.2 Constitutional - Awake and Alert, No apparent distress. Tremulous. Cooperative. Pleasant. Afebrile. HEENT - PERRL, EOMI Heart - Irregular, normal rhythn, crescendo-decrescendo at right upper sternal border. Lung - Normal lung expansion, Normal respiratory effort, No respiratory distress, CTA bilaterally Abdomen - NT / ND; +BS; No rebound or guarding Extremities - no calf tenderness bilaterally, no swelling Musculoskeletal - Normal inspection, normal ROM Skin - Warm/Dry Neurological - Alert & oriented x3. No focal weakness noted. Normal speech. Psychological - Appropriate affect Results Labs 09/14/23 16:07 09/14/23 18:48 Labs: Laboratory Results - last 24 hr 09/14/23 09/14/23 09/14/23 16:07 16:45 18:06 MCV 91.1 MCH 30.9 MCHC 34.0 RDW 14.2 Plt Count 248 D MPV 9.2 L Immature Gran % (Auto) 1.5 H Neut % (Auto) 67.9 Lymph % (Auto) 14.2 L Letcher % (Auto) 14.3 H Eos % (Auto) 1.3 Baso % (Auto) 0.8 Lymph # (Auto) 1.3 Letcher # (Auto) 1.3 H Eos # (Auto) 0.1 Baso # (Auto) 0.1 Abs Immat Gran (auto) 0.13 H Absolute Neuts (auto) 6.1 Absolute Nucleated RBC 0.000 Nucleated RBC % (auto) 0.0 PT 21.6 H D INR 1.8 H Anion Gap 16 16 Estim Creat Clear Calc 36.3 37.9 Estimated GFR 24 26 POC Glucose 124 H Random Glucose 114 136 H Calcium 10.0 9.6 Magnesium 2.8 H Total Bilirubin 0.4 AST 14 ALT 14 Alkaline Phosphatase 71 Troponin I High Sens 10.0 D B-Natriuretic Peptide 1005 H Total Protein 7.3 Albumin 4.1 Urine Color Urine Appearance Urine pH Ur Specific Fowler Urine Protein Urine Glucose (UA) Urine Ketones Urine Blood Urine Nitrite Ur Leukocyte Esterase Urine Opiates Screen Ur Buprenorphine Scrn Ur Oxycodone Screen Urine Methadone Screen Urine Fentanyl Screen Ur Barbiturates Screen Ur Phencyclidine Scrn Ur Amphetamines Screen U Benzodiazepines Scrn Urine Cocaine Screen U Marijuana (THC) Screen Ethyl Alcohol < 10 09/14/23 09/14/23 09/14/23 18:48 18:58 19:47 MCV MCH MCHC RDW Plt Count MPV Immature Gran % (Auto) Neut % (Auto) Lymph % (Auto) Letcher % (Auto) Eos % (Auto) Baso % (Auto) Lymph # (Auto) Letcher # (Auto) Eos # (Auto) Baso # (Auto) Abs Immat Gran (auto) Absolute Neuts (auto) Absolute Nucleated RBC Nucleated RBC % (auto) PT INR Anion Gap 11 L Estim Creat Clear Calc 40.9 Estimated GFR 28 POC Glucose 147 H Random Glucose 145 H Calcium 9.5 Magnesium Total Bilirubin AST ALT Alkaline Phosphatase Troponin I High Sens B-Natriuretic Peptide Total Protein Albumin Urine Color Yellow Urine Appearance Clear Urine pH 5.5 Ur Specific Fowler 1.010 Urine Protein Negative Urine Glucose (UA) Negative Urine Ketones Negative Urine Blood Negative Urine Nitrite Negative Ur Leukocyte Esterase Negative Urine Opiates Screen Not Detected Ur Buprenorphine Scrn Not Detected Ur Oxycodone Screen Not Detected Urine Methadone Screen Not Detected Urine Fentanyl Screen Not Detected Ur Barbiturates Screen Not Detected Ur Phencyclidine Scrn Not Detected Ur Amphetamines Screen Not Detected U Benzodiazepines Scrn Not Detected Urine Cocaine Screen Not Detected U Marijuana (THC) Screen Not Detected Ethyl Alcohol 09/14/23 20:33 MCV MCH MCHC RDW Plt Count MPV Immature Gran % (Auto) Neut % (Auto) Lymph % (Auto) Letcher % (Auto) Eos % (Auto) Baso % (Auto) Lymph # (Auto) Letcher # (Auto) Eos # (Auto) Baso # (Auto) Abs Immat Gran (auto) Absolute Neuts (auto) Absolute Nucleated RBC Nucleated RBC % (auto) PT INR Anion Gap Estim Creat Clear Calc Estimated GFR POC Glucose 175 H Random Glucose Calcium Magnesium Total Bilirubin AST ALT Alkaline Phosphatase Troponin I High Sens B-Natriuretic Peptide Total Protein Albumin Urine Color Urine Appearance Urine pH Ur Specific Fowler Urine Protein Urine Glucose (UA) Urine Ketones Urine Blood Urine Nitrite Ur Leukocyte Esterase Urine Opiates Screen Ur Buprenorphine Scrn Ur Oxycodone Screen Urine Methadone Screen Urine Fentanyl Screen Ur Barbiturates Screen Ur Phencyclidine Scrn Ur Amphetamines Screen U Benzodiazepines Scrn Urine Cocaine Screen U Marijuana (THC) Screen Ethyl Alcohol Imaging Radiologist's Impressions: Impressions Chest X-Ray 06/25/24 17:03 IMPRESSION: Unremarkable examination. Assessment and Plan (1) Acute hyperkalemia: Status: Acute (2) JOVITA (acute kidney injury): Status: Acute (3) Symptomatic bradycardia: Status: Acute (4) Junctional bradycardia: Status: Acute Plan Shane Nichole is a 68 y/o man admitted with: Hypotension and bradycardia likely secondary to conduction abnormalities secondary to hyperkalemia, resolved. Admit to hospitalist service. Telemetry. Hold metoprolol and other antiarrhythmics for now. Continue to monitor K+ level, heart rate and blood pressure closely. Nephrology consult. History of atrial fibrillation currently on 2nd AV block, Mobitz I. Telemetry. Metoprolol hold. Continue Eliquis. Cardiology consult. Acute kidney injury, likely due to dehydration due to alcohol abuse in the setting of lisinopril use. Hold lisinopril. Continue IV fluids. Continue to monitor renal function. Avoid nephrotoxic agents. Hypermagnesemia secondary to JOVITA + magnesium pills use. Hold magnesium. Continue to monitor Mg level. Hyponatremia, mild. Likely multifactorial. Continue IV fluids. Continue to monitor Na+ level. Alcohol abuse. [facility] protocol. Phenobarbital, thiamine, folic acid and multivitamins. Patient was encouraged to consider quitting alcohol consumption, however his pronounced at he has not interested in doing so for now, maybe in the future. Hx of moderate . 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 CAD. Continue aspirin and statin. COPD. not in acute exacerbation. Continue inhalers. DVT prophylaxis: On Eliquis Code status: Full Patient will need hospitalization for at least 2 midnights for JOVITA associated with hyperkalemia treatment with IV fluids, continuous potassium level and vital signs monitoring. Patient also will need continuous cardiac monitoring due to 2nd degree AV block + cardiology evaluation. Quality Stroke Does the patient have a stroke diagnosis?: No VTE Prior VTE?: No VTE Risk Level:: Medical - moderate - high VTE Device Contraindication: Treatment Not Indicated VTE Drug Contraindication: N/A - Med Ordered
[2023-09-14 22:17] LABS: Glucose, Whole Blood 163 mg/dL (60-115)
--- NOTE | 2023-09-14 22:17 | PC.NURSE ---
Second EKG ordered by Dr. Serrato sent to her via [employer]. provider confirmed receipt.
[2023-09-14 22:43] LABS: Venous Blood Gas Refer to POC result
[2023-09-14 22:51] LABS: VBG Base Excess -2.2 mmol/L; VBG HCO3 20 mmol/L (22-26); VBG pCO2 30 mmHg; VBG pH 7.44 (7.32-7.43); VBG pO2 65 mmHg
[2023-09-14 23:02] LABS: Anion Gap 15 (12-20); Blood Urea Nitrogen 41 mg/dL (9-16); Calcium 9.6 mg/dL (8.4-10.2); Carbon Dioxide 19 mmol/L (22-29); Chloride 107 mmol/L (96-108); Creatinine Clr Calc Pharmacy 49.4; Estimated Glomerular Filt Rate 35; Glucose Random 151 mg/dL (60-115); Magnesium 2.2 mg/dL (1.6-2.6); Phosphorus 3.4 mg/dL (2.7-4.5); Potassium 4.6 mmol/L (3.3-5.1); Sodium 136 mmol/L (135-145)
[2023-09-15] VITALS (8 sets, daily range): BP systolic 102–147; BP diastolic 49–81; PULSE 60–100; RESP 16–20; TEMP 36.1–37.2; O2SAT 92–96
[2023-09-15] MEDS: 0.9 % Sodium Chloride 1,000 ML 100 ML IVCONT ×3 (00:23→22:55)
[2023-09-15] MEDS: PHENobarbitaL sodium 130 MG/ML VIAL IM Q3Hx2 233 MG IM (02:53)
[2023-09-15 06:31] LABS: MANUAL DIFF FLAG NO
[2023-09-15 06:43] LABS: Basophils Absolute Auto 0.1 X10*3/uL (0.0-0.2); Basophils Percent Auto 0.6 % (0-2); Eosinophils Absolute Auto 0.1 X10*3/uL (0.0-0.4); Eosinophils Percent Auto 1.1 % (0-4); Hematocrit 30.9 % (42.0-52.0); Hemoglobin 10.1 g/dl (14.0-18.0); Imm Gran Abs Auto 0.06 X10*3/uL (0.00-0.03); Imm Gran Pct Auto 0.7 % (0.0-0.4); Lymphocytes Absolute Auto 1.3 X10*3/uL (1.2-4.9); Lymphocytes Percent Auto 15.9 % (20-40); Mean Corpuscular HGB Conc 32.7 g/dl (31.0-36.0); Mean Corpuscular Hemoglobin 30.1 pg (27.0-33.0); Mean Platelet Volume 9.5 fL (9.4-12.4); Monocytes Absolute Auto 1.3 X10*3/uL (0.1-1.2); Monocytes Percent Auto 15.3 % (2-11); Neutrophils Absolute Auto 5.5 x10*3/uL (2.0-8.3); Neutrophils Percent Auto 66.4 % (45-73); Platelet Count 221 X10*3/uL (160-400); Red Blood Count 3.36 X10*6/uL (4.60-5.80); Red Cell Distribution Width 14.2 % (11.0-16.0); White Blood Count 8.3 X10*3/uL (4.8-10.8)
[2023-09-15 07:02] LABS: Alanine Aminotransferase 12 U/L (0-40); Albumin Level 3.7 g/dL (3.5-5.0); Alkaline Phosphatase 63 U/L (39-117); Anion Gap 12 (12-20); Aspartate Amino Transferase 14 U/L (5-37); Bilirubin Total 0.3 mg/dL (0.0-1.0); Blood Urea Nitrogen 31 mg/dL (9-16); Calcium 9.7 mg/dL (8.4-10.2); Carbon Dioxide 22 mmol/L (22-29); Chloride 107 mmol/L (96-108); Creatinine Clr Calc Pharmacy 63.2; Estimated Glomerular Filt Rate 46; Glucose Random 124 mg/dL (60-115); Magnesium 1.9 mg/dL (1.6-2.6); Potassium 4.3 mmol/L (3.3-5.1); Sodium 137 mmol/L (135-145); Total Protein 6.6 g/dL (6.5-8.0)
[2023-09-15] MEDS: Famotidine 20 MG TABLET PO (09:16)
[2023-09-15] MEDS: Folic Acid 1 MG TABLET PO (09:16)
[2023-09-15] MEDS: Cholecalciferol (Vitamin D3) 25 MCG TABLET PO (09:16)
[2023-09-15] MEDS: PHENobarbitaL 30 MG TABLET 60 MG PO ×2 (09:16→20:46)
[2023-09-15] MEDS: Apixaban 5 MG TABLET PO ×2 (09:16→20:46)
[2023-09-15] MEDS: Atorvastatin Calcium 40 MG TABLET PO (09:16)
[2023-09-15] MEDS: Aspirin Enteric Coated 81 MG TABLET.DR PO (09:16)
[2023-09-15] MEDS: Cyanocobalamin (Vitamin B-12) 500 MCG TABLET PO (09:16)
[2023-09-15] MEDS: Thiamine HCL 100 MG in 0.9 % Sodium Chloride 100 ML 202 MG IV (09:17)
[2023-09-15] MEDS: Magnesium Oxide 400 MG TABLET PO ×2 (09:17→16:59)
--- NOTE | 2023-09-15 09:17 | MHC.CM.PN ---
IMM 09/14. Pt self-care, lives alone at home. Pt will arrange his own transportation home at discharge. HCP on file and verified. PCP: Dr. Kojo Fermin
[2023-09-15] MEDS: 0.9 % Sodium Chloride Flush 3 ML SYRINGE IVFLUSH ×2 (09:20→20:46)
[2023-09-15] MEDS: Acetaminophen 325 MG TABLET 650 MG PO ×2 (09:23→20:47)
--- NOTE | 2023-09-15 10:43 | PC.NURSE ---
pt refusing bed and chair alarms. PT agrees to call staff prior to attempting to ambulate so that he can be assisted/supervised
--- NOTE | 2023-09-15 11:26 | P.PNIM_ITS ---
Subjective Subjective Date of Service: 09/15/23 Interval History: seen and evaluated this mroning Cr improving K corrected feels better overall Review of Systems Review of Systems: Yes all other systems are reviewed and are negative Physical Exam 2 Vital Signs: Vital Signs: Last Vital Signs Temp 97.4 F 09/15/23 07:22 Pulse 100 09/15/23 07:22 Resp 18 09/15/23 07:22 BP 119/67 09/15/23 07:22 Pulse Ox 94 09/15/23 07:22 O2 Del Method Room Air 09/15/23 07:22 BMI result Body Mass Index 37.2 Const: Other: Constitutional : Awake, interactive, not in distress Neck : Normal inspection, Supple Cardiovascular : irregular irregular , no JVP, no lower extremity edema Respiratory : good bilateral air entry, no crackles, wheezes or rhonchi Gastrointestinal: soft, lax, Normal bowel sounds, Non tender Skin : Warm, Dry Neurological : Alert & oriented x3, No focal deficit Objective Data Active Medications Acetaminophen (Acetaminophen 325 Mg Tablet) 650 mg PO Q6H PRN PRN Reason: Pain, Mild (Pain Scale 1-3), fever or headache Last Admin: 09/15/23 09:23 Dose: 650 mg Documented By: JOVON Apixaban (Apixaban 5 Mg Tablet) 5 mg PO BID [facility] Last Admin: 09/15/23 09:16 Dose: 5 mg Documented By: JOVON Aspirin (Aspirin Enteric Coated 81 Mg Tablet.) 81 mg PO DAILY [facility] Last Admin: 09/15/23 09:16 Dose: 81 mg Documented By: JOVON Atorvastatin Calcium (Atorvastatin Calcium 40 Mg Tablet) 40 mg PO DAILY [facility] Last Admin: 09/15/23 09:16 Dose: 40 mg Documented By: JOVON Cyanocobalamin (Cyanocobalamin (Vitamin B-12) 500 Mcg Tablet) 500 mcg PO DAILY [facility] Last Admin: 09/15/23 09:16 Dose: 500 mcg Documented By: JOVON Famotidine (Famotidine 20 Mg Tablet) 20 mg PO DAILY [facility] Last Admin: 09/15/23 09:16 Dose: 20 mg Documented By: JOVON Fluticasone/Umeclidinium/Vilanterol (Fluticasone/Umeclidinium/Vilanterol 200/62.5/25 Blst.W.Dev) 1 puff INHALE RDAILY [facility] Folic Acid (Folic Acid 1 Mg Tablet) 1 mg PO DAILY [facility] Last Admin: 09/15/23 09:16 Dose: 1 mg Documented By: JOVON Dextrose (D10) 250 mls @ 750 mls/hr IV Q15M PRN PRN Reason: per Hypoglycemia Standing Ord. Last Infusion: 09/14/23 20:20 Dose: Infused Documented By: NISHA Dextrose (D10) 250 mls @ 750 mls/hr IV Q15M PRN PRN Reason: per Hypoglycemia Standing Ord. Sodium Chloride (Ns) 1,000 mls @ 100 mls/hr IVCONT .Q10H [facility] Last Admin: 09/15/23 06:01 Dose: 100 mls/hr Documented By: SANTO Thiamine HCl 100 mg/ Sodium (Chloride) 101 mls @ 202 mls/hr IV DAILY [facility] Stop: 09/18/23 08:59 Last Infusion: 09/15/23 09:53 Dose: Infused Documented By: BEBO Magnesium Oxide (Magnesium Oxide 400 Mg Tablet) 400 mg PO BIDWM [facility] Last Admin: 09/15/23 09:17 Dose: 400 mg Documented By: JOVON Pharmacy Consult (Consult Rx Etoh Phenob Im/Po) 1 each MISCELLANE ONCE PRN; Protocol PRN Reason: Consult order Phenobarbital (Phenobarbital 30 Mg Tablet) 60 mg PO BID [facility] Stop: 09/16/23 21:01 Last Admin: 09/15/23 09:16 Dose: 60 mg Documented By: JOVON Phenobarbital (Phenobarbital 30 Mg Tablet) 30 mg PO BID [facility] Stop: 09/18/23 21:01 Phenobarbital (Phenobarbital 30 Mg Tablet) 30 mg PO DAILY [facility] Stop: 09/20/23 09:01 Sodium Chloride (0.9 % Sodium Chloride Flush 3 Ml Syringe) 3 ml IVFLUSH QSHIFT [facility] Last Admin: 09/15/23 09:20 Dose: 3 ml Documented By: JOVON Vitamin D (Cholecalciferol (Vitamin D3) 25 Mcg Tablet) 25 mcg PO DAILY [facility] Last Admin: 09/15/23 09:16 Dose: 25 mcg Documented By: JOVON Labs 09/15/23 06:20 09/15/23 06:20 Labs: Laboratory Results - last 24 hr 09/14/23 09/14/23 09/14/23 16:07 16:45 18:06 MCV 91.1 MCH 30.9 MCHC 34.0 RDW 14.2 Plt Count 248 D MPV 9.2 L Immature Gran % (Auto) 1.5 H Neut % (Auto) 67.9 Lymph % (Auto) 14.2 L Bladen % (Auto) 14.3 H Eos % (Auto) 1.3 Baso % (Auto) 0.8 Lymph # (Auto) 1.3 Bladen # (Auto) 1.3 H Eos # (Auto) 0.1 Baso # (Auto) 0.1 Abs Immat Gran (auto) 0.13 H Absolute Neuts (auto) 6.1 Absolute Nucleated RBC 0.000 Nucleated RBC % (auto) 0.0 PT 21.6 H D INR 1.8 H VBG pH VBG pCO2 VBG pO2 VBG HCO3 VBG O2 Saturation VBG Base Excess Anion Gap 16 16 Estim Creat Clear Calc 36.3 37.9 Estimated GFR 24 26 POC Glucose 124 H Random Glucose 114 136 H Calcium 10.0 9.6 Phosphorus Magnesium 2.8 H Total Bilirubin 0.4 AST 14 ALT 14 Alkaline Phosphatase 71 Troponin I High Sens 10.0 D B-Natriuretic Peptide 1005 H Total Protein 7.3 Albumin 4.1 Urine Color Urine Appearance Urine pH Ur Specific Albia Urine Protein Urine Glucose (UA) Urine Ketones Urine Blood Urine Nitrite Ur Leukocyte Esterase Urine Opiates Screen Ur Buprenorphine Scrn Ur Oxycodone Screen Urine Methadone Screen Urine Fentanyl Screen Ur Barbiturates Screen Ur Phencyclidine Scrn Ur Amphetamines Screen U Benzodiazepines Scrn Urine Cocaine Screen U Marijuana (THC) Screen Ethyl Alcohol < 10 09/14/23 09/14/23 09/14/23 18:48 18:58 19:47 MCV MCH MCHC RDW Plt Count MPV Immature Gran % (Auto) Neut % (Auto) Lymph % (Auto) Bladen % (Auto) Eos % (Auto) Baso % (Auto) Lymph # (Auto) Bladen # (Auto) Eos # (Auto) Baso # (Auto) Abs Immat Gran (auto) Absolute Neuts (auto) Absolute Nucleated RBC Nucleated RBC % (auto) PT INR VBG pH VBG pCO2 VBG pO2 VBG HCO3 VBG O2 Saturation VBG Base Excess Anion Gap 11 L Estim Creat Clear Calc 40.9 Estimated GFR 28 POC Glucose 147 H Random Glucose 145 H Calcium 9.5 Phosphorus Magnesium Total Bilirubin AST ALT Alkaline Phosphatase Troponin I High Sens B-Natriuretic Peptide Total Protein Albumin Urine Color Yellow Urine Appearance Clear Urine pH 5.5 Ur Specific Albia 1.010 Urine Protein Negative Urine Glucose (UA) Negative Urine Ketones Negative Urine Blood Negative Urine Nitrite Negative Ur Leukocyte Esterase Negative Urine Opiates Screen Not Detected Ur Buprenorphine Scrn Not Detected Ur Oxycodone Screen Not Detected Urine Methadone Screen Not Detected Urine Fentanyl Screen Not Detected Ur Barbiturates Screen Not Detected Ur Phencyclidine Scrn Not Detected Ur Amphetamines Screen Not Detected U Benzodiazepines Scrn Not Detected Urine Cocaine Screen Not Detected U Marijuana (THC) Screen Not Detected Ethyl Alcohol 09/14/23 09/14/23 09/14/23 20:33 21:30 22:38 MCV MCH MCHC RDW Plt Count MPV Immature Gran % (Auto) Neut % (Auto) Lymph % (Auto) Bladen % (Auto) Eos % (Auto) Baso % (Auto) Lymph # (Auto) Bladen # (Auto) Eos # (Auto) Baso # (Auto) Abs Immat Gran (auto) Absolute Neuts (auto) Absolute Nucleated RBC Nucleated RBC % (auto) PT INR VBG pH 7.44 H VBG pCO2 30 VBG pO2 65 VBG HCO3 20 L VBG O2 Saturation 93.0 VBG Base Excess -2.2 Anion Gap 15 Estim Creat Clear Calc 49.4 Estimated GFR 35 POC Glucose 175 H 163 H Random Glucose 151 H Calcium 9.6 Phosphorus 3.4 Magnesium 2.2 Total Bilirubin AST ALT Alkaline Phosphatase Troponin I High Sens B-Natriuretic Peptide Total Protein Albumin Urine Color Urine Appearance Urine pH Ur Specific Albia Urine Protein Urine Glucose (UA) Urine Ketones Urine Blood Urine Nitrite Ur Leukocyte Esterase Urine Opiates Screen Ur Buprenorphine Scrn Ur Oxycodone Screen Urine Methadone Screen Urine Fentanyl Screen Ur Barbiturates Screen Ur Phencyclidine Scrn Ur Amphetamines Screen U Benzodiazepines Scrn Urine Cocaine Screen U Marijuana (THC) Screen Ethyl Alcohol 09/15/23 06:20 MCV 92.0 MCH 30.1 MCHC 32.7 RDW 14.2 Plt Count 221 MPV 9.5 Immature Gran % (Auto) 0.7 H Neut % (Auto) 66.4 Lymph % (Auto) 15.9 L Bladen % (Auto) 15.3 H Eos % (Auto) 1.1 Baso % (Auto) 0.6 Lymph # (Auto) 1.3 Bladen # (Auto) 1.3 H Eos # (Auto) 0.1 Baso # (Auto) 0.1 Abs Immat Gran (auto) 0.06 H Absolute Neuts (auto) 5.5 Absolute Nucleated RBC 0.000 Nucleated RBC % (auto) 0.0 PT INR VBG pH VBG pCO2 VBG pO2 VBG HCO3 VBG O2 Saturation VBG Base Excess Anion Gap 12 Estim Creat Clear Calc 63.2 Estimated GFR 46 POC Glucose Random Glucose 124 H Calcium 9.7 Phosphorus Magnesium 1.9 Total Bilirubin 0.3 AST 14 ALT 12 Alkaline Phosphatase 63 Troponin I High Sens B-Natriuretic Peptide Total Protein 6.6 Albumin 3.7 Urine Color Urine Appearance Urine pH Ur Specific Albia Urine Protein Urine Glucose (UA) Urine Ketones Urine Blood Urine Nitrite Ur Leukocyte Esterase Urine Opiates Screen Ur Buprenorphine Scrn Ur Oxycodone Screen Urine Methadone Screen Urine Fentanyl Screen Ur Barbiturates Screen Ur Phencyclidine Scrn Ur Amphetamines Screen U Benzodiazepines Scrn Urine Cocaine Screen U Marijuana (THC) Screen Ethyl Alcohol Assessment and Plan (1) Acute hyperkalemia: Status: Acute (2) JOVITA (acute kidney injury): Status: Acute (3) Symptomatic bradycardia: Status: Acute Plan Shane Nichole is a 68 y/o man admitted with: Hypotension and bradycardia likely secondary to conduction abnormalities secondary to Acute hyperkalemia resolved as Hyperkalemia resolved Monitor on Telemetry Hold metoprolol and other antiarrhythmics monitor K+ level, Nephrology consult. History of atrial fibrillation currently in 2nd AV block, Mobitz I. Telemetry. Metoprolol hold. Continue Eliquis. Cardiology consult. Acute kidney injury, likely due to dehydration due to alcohol abuse in the setting of lisinopril use. Cr improved to 1.5 from 2.3 Hold lisinopril. IV fluids. monitor renal function Hypermagnesemia secondary to JOVITA + magnesium pills use. Hold magnesium. follow Mg level. Acute Hyponatremia resolved Alcohol abuse with high risk for withdrawal CIWA protocol. Started on Phenobarbital thiamine, folic acid and multivitamins. 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 CAD. Continue aspirin and statin. COPD. not in acute exacerbation. Continue inhalers. DVT prophylaxis: On Eliquis Patient will need hospitalization overnight for JOVITA associated with hyperkalemia treatment with IV fluids, continuous potassium level and vital signs monitoring. Patient also will need continuous cardiac monitoring due to 2nd degree AV block + cardiology evaluation. Quality Stroke Does the patient have a stroke diagnosis?: No VTE Prior VTE?: No VTE Risk Level:: Medical - moderate - high VTE Device Contraindication: Treatment Not Indicated VTE Drug Contraindication: N/A - Med Ordered
[2023-09-15] MEDS: Fluticasone/Umeclidinium/Vilanterol 200/62.5/25 BLST.W.DEV 1 PUFF INHALE (11:40)
--- NOTE | 2023-09-15 13:08 | PM.CNNEP ---
History of Present Illness Reason for Consult Consult date: 09/15/23 Reason for consult: JOVITA Chief Complaint Chief complaint: Acute kidney injury History of Present Illness Narrative: 68 years old man with H/O alcohol use disorder, essential hypertension, moderate aortic stenosis among other medical issues presented to the emergency department with 2 day history of mild retrosternal chest pain, dizziness unsteady gait. He also reports some shortness on breath. He had a recent mechanical fall landing on his knees and denies head trauma. Denied nausea, vomiting, diarrhea, cough, headache fevers or chills. Denies any acute bleeding or use of diuretics. He does take lisinopril. He continues to drink alcohol about 4 drinks drinks of vodka and soda (16 oz) and said that he has not interested about quitting alcohol consumption. In the ED, he was found to have marked bradycardia (lowest 29) and hypotension (lowest 86/36). Oxygen saturation and temperature are normal. Blood workup was remarkable for marked hyperkalemia of 7.4, bicarb 17, creatinine of 2.61 and magnesium 2.8. Anion gap is normal. BNP is 1105 and troponin is negative. UA showed no evidence of UTI. Toxicology was negative and ethanol level is < 10. CXR is negative for acute changes. ECG - junctional bradycardia with a heart rate of 34 beats per minutes. Was given NS 2 L bolus, bicarb 50 mEq IV X2, albuterol 10 mg inhalerX2, insulin 10 mg IV, glucose 1 mg IV, calcium gluconate 2 g IV, Lokelma 10 g PO and got admitted for further management. Nephrology has been consulted to assist in his clinical care during his current hospital stay Review of Systems Review of Systems Yes all other systems are reviewed and are negative [facility] Past Medical History Medical History Junctional bradycardia COVID-19 Blindness of left eye History of eye prosthesis Thyroid disease GERD (gastroesophageal reflux disease) Numbness On beta patrick at home On anticoagulant therapy Murmur PVD (peripheral vascular disease) Myocardial infarction Atrial fibrillation Alcohol dependence Post laminectomy syndrome Asthma Renal stones COPD (chronic obstructive pulmonary disease) Anemia Hepatitis C Hyperlipidemia HTN (hypertension) SVT (supraventricular tachycardia) CAD (coronary artery disease) Family History Family History Father Cancer Mother CVD (cardiovascular disease) Surgical History Surgical History Hx of eye surgery History of esophagogastroduodenoscopy (EGD) H/O colonoscopy S/P lobectomy of lung (~05/2021) Stented coronary artery Hx of thyroidectomy History of back surgery Hx of cardiac cath Social History Social History Household Members: None Housing: Apartment Are you a primary career specialist to a significant other at home: No Do you presently have visiting nurse or other home services: No Alcohol intake: current Alcohol intake frequency: 3 or more drinks per day Alcohol type: hard liquor Patient Tobacco Use Status: Former Tobacco user Tobacco use type: Cigarette Cigarette Packs Per Day: 1 Cigarettes Per Day: 20.0 Years Smoked: 40 Second Hand Smoke Exposure: No Substance Use Type: Marijuana Advance Directives Date on File: 09/09/23 service: No Meds Allergies Allergy/AdvReac Type Severity Reaction Status Date / Time No Known Allergies Allergy Verified 09/14/23 15:50 [No Known Allergies*] Active Medications: Current Medications Acetaminophen (Acetaminophen 325 Mg Tablet) 650 mg PO Q6H PRN PRN Reason: Pain, Mild (Pain Scale 1-3), fever or headache Last Admin: 09/15/23 09:23 Dose: 650 mg Apixaban (Apixaban 5 Mg Tablet) 5 mg PO BID [facility] Last Admin: 09/15/23 09:16 Dose: 5 mg Aspirin (Aspirin Enteric Coated 81 Mg Tablet.Dr) 81 mg PO DAILY [facility] Last Admin: 09/15/23 09:16 Dose: 81 mg Atorvastatin Calcium (Atorvastatin Calcium 40 Mg Tablet) 40 mg PO DAILY [facility] Last Admin: 09/15/23 09:16 Dose: 40 mg Cyanocobalamin (Cyanocobalamin (Vitamin B-12) 500 Mcg Tablet) 500 mcg PO DAILY [facility] Last Admin: 09/15/23 09:16 Dose: 500 mcg Famotidine (Famotidine 20 Mg Tablet) 20 mg PO DAILY [facility] Last Admin: 09/15/23 09:16 Dose: 20 mg Fluticasone/Umeclidinium/Vilanterol (Fluticasone/Umeclidinium/Vilanterol 200/62.5/25 Blst.W.Dev) 1 puff INHALE RDAILY [facility] Last Admin: 09/15/23 11:40 Dose: 1 puff Folic Acid (Folic Acid 1 Mg Tablet) 1 mg PO DAILY [facility] Last Admin: 09/15/23 09:16 Dose: 1 mg Dextrose (D10) 250 mls @ 750 mls/hr IV Q15M PRN PRN Reason: per Hypoglycemia Standing Ord. Last Infusion: 09/14/23 20:20 Dose: Infused Dextrose (D10) 250 mls @ 750 mls/hr IV Q15M PRN PRN Reason: per Hypoglycemia Standing Ord. Sodium Chloride (Ns) 1,000 mls @ 100 mls/hr IVCONT .Q10H [facility] Last Admin: 09/15/23 06:01 Dose: 100 mls/hr Thiamine HCl 100 mg/ Sodium (Chloride) 101 mls @ 202 mls/hr IV DAILY [facility] Stop: 09/18/23 08:59 Last Infusion: 09/15/23 09:53 Dose: Infused Magnesium Oxide (Magnesium Oxide 400 Mg Tablet) 400 mg PO BIDWM [facility] Last Admin: 09/15/23 09:17 Dose: 400 mg Pharmacy Consult (Consult Rx Etoh Phenob Im/Po) 1 each MISCELLANE ONCE PRN; Protocol PRN Reason: Consult order Phenobarbital (Phenobarbital 30 Mg Tablet) 60 mg PO BID [facility] Stop: 09/16/23 21:01 Last Admin: 09/15/23 09:16 Dose: 60 mg Phenobarbital (Phenobarbital 30 Mg Tablet) 30 mg PO BID [facility] Stop: 09/18/23 21:01 Phenobarbital (Phenobarbital 30 Mg Tablet) 30 mg PO DAILY [facility] Stop: 09/20/23 09:01 Sodium Chloride (0.9 % Sodium Chloride Flush 3 Ml Syringe) 3 ml IVFLUSH QSHIFT [facility] Last Admin: 09/15/23 09:20 Dose: 3 ml Vitamin D (Cholecalciferol (Vitamin D3) 25 Mcg Tablet) 25 mcg PO DAILY [facility] Last Admin: 09/15/23 09:16 Dose: 25 mcg Home Medications ?Medication ?Instructions ?Recorded ?Confirmed ?Last Taken ?Type famotidine 40 mg tablet 40 mg PO BID 04/12/20 09/14/23 09/14/23 06:30 History gabapentin 600 mg tablet 600 mg PO BID 01/09/14/23 09/14/23 06:30 History lisinopril 40 mg tablet 40 mg PO DAILY 04/12/20 09/14/23 09/14/23 06:30 History albuterol sulfate 90 mcg/actuation 2 puff inhalation QID PRN 10/26/22 09/14/23 09/14/23 06:30 History aerosol inhaler Shortness Of Breath Or Wheezing acetaminophen 325 mg tablet 650 mg PO DAILY PRN Pain 05/19/23 09/14/23 09/14/23 06:30 History aspirin 81 mg tablet,delayed 81 mg PO DAILY 05/19/23 09/14/23 09/14/23 06:30 History release cholecalciferol (vitamin D3) 25 25 mcg PO DAILY 05/19/23 09/14/23 09/14/23 06:30 History mcg (1,000 unit) capsule (Vitamin D3) cyanocobalamin (vitamin B-12) 500 500 mcg PO DAILY 05/19/23 09/14/23 09/14/23 06:30 History mcg tablet (Vitamin B-12) fluticasone fur. 200 mcg-umeclid 1 ea inhalation DAILY 05/19/23 09/14/23 09/14/23 06:30 History 62.5 mcg-vilant 25 mcg inhalat.powder (Trelegy Ellipta) ipratropium 0.5 mg-albuterol 3 mg 3 ml inhalation QID PRN Shortness 05/19/23 09/14/23 09/14/23 06:30 History (2.5 mg base)/3 mL nebulization Of Breath Or Wheezing soln atorvastatin 40 mg tablet 40 mg PO DAILY 09/14/23 09/14/23 09/14/23 06:30 History magnesium oxide 400 mg (241.3 mg 400 mg PO BIDWM 09/14/23 09/14/23 09/14/23 06:30 History magnesium) tablet metoprolol succinate 25 mg 25 mg PO BID 09/14/23 09/14/23 09/14/23 06:30 History tablet,extended release 24 hr Physical Exam Vital Signs: Last Vital Signs Temp 97 F 09/15/23 12:00 Pulse 77 09/15/23 12:00 Resp 18 09/15/23 12:00 BP 102/49 L 09/15/23 12:00 Pulse Ox 95 06/26/24 12:00 O2 Del Method Room Air 09/15/23 12:00 BMI result Body Mass Index 37.2 Const General: comfortable and no acute distress Orientation/consciousness: patient oriented x3 HEENT Head: Yes normocephalic Mouth: Normal oral and palatal mucosa present Eyes EOM: EOMs intact bilaterally Neck Neck: Yes supple Resp Auscultation: clear to auscultation bilaterally Cardio Jugular venous distension: no JVD Rate: regular rate Heart sounds: Murmur heart sound present GI Palpation (GI): Soft to palpation Auscultation: normal bowel sounds General: Yes no CVA tenderness Back/Spine/Pelvis Back: no CVA tenderness Skin General skin exam: no rashes or lesions noted Neuro General: patient oriented x3 and moves all extremities Extrem General: Yes no pedal edema Results Lab Results 09/15/23 06:20 09/15/23 06:20 Lab results: Chemistry 09/14/23 09/14/23 09/14/23 16:07 16:45 18:48 Sodium 132 L 129 L 131 L Potassium 7.2 H* D 7.4 H* 6.1 H* Carbon Dioxide 21 L 17 L 22 BUN 49 H 46 H 46 H Creatinine 2.61 H 2.50 H 2.32 H Calcium 10.0 9.6 9.5 Phosphorus 09/14/23 09/15/23 22:38 06:20 Sodium 136 137 Potassium 4.6 D 4.3 Carbon Dioxide 19 L 22 BUN 41 H 31 H Creatinine 1.92 H 1.50 H Calcium 9.6 9.7 Phosphorus 3.4 Hematology 09/14/23 09/15/23 16:07 06:20 WBC 9.0 8.3 Hgb 10.8 L 10.1 L Plt Count 248 D 221 Urinalysis 09/14/23 19:47 Urine Color Yellow Urine Appearance Clear Urine pH 5.5 Ur Specific Jber 1.010 Urine Protein Negative Urine Glucose (UA) Negative Urine Ketones Negative Urine Blood Negative Urine Nitrite Negative Ur Leukocyte Esterase Negative Assessment and Plan (1) JOVITA (acute kidney injury): Status: Acute Plan Acute kidney injury due to compromised renal perfusion Most likely had altered autoregulation of the kidney with the development of tubular injury No recent suspect AIN or GN; Had been on MARIANNA inhibitor which has been discontinued Urine output good. No recent suspect any obstructive uropathy. Serum creatinine improved with current supportive care No indication for any renal replacement; shall closely follow along Needs outpatient follow-up with [facility] after hospital discharge Procedures Date of Service Date of Service: 09/15/23
--- NOTE | 2023-09-15 15:23 | PM.CNCAR ---
History of Present Illness History of Present Illness Date of Service: 09/15/23 Requesting physician: Melody Garza Consult reason: atrial fibrillation and other (bradycardia) Chief complaint: Acute kidney injury Narrative: I was consulted to see Vineet in cardiology consultation today for bradycardia and hypotension yesterday. Vineet is a 68-year-old male with prior history of CAD and RCA stenting for inferior ID, COPD, peripheral vascular disease, lumbar spine issues, aortic stenosis which is moderate, hypertension, hyperlipidemia and recent onset atrial fibrillation which has been tolerating poorly. He initially underwent cardioversion on Multaq therapy but failed that and came back with recurrent atrial fibrillation, highly symptomatic. He was subsequently last week brought in for inpatient initiation of Tikosyn therapy followed by cardioversion. He did well while in the hospital cardioverted and then subsequently was released home. However says ever since being home he has not been feeling well. He has been feeling lightheaded and weird. He continue feel badly over the weekend and eventually came to see primary care physician on Wednesday. I was called by them and said the patient was not tolerating Tikosyn and was having weird symptoms including visual changes and colored vision and feeling lightheaded. We then decided to stop Tikosyn continue blood thinners and restart metoprolol therapy. Patient took metoprolol yesterday morning and then call the office that he is feeling very poorly and came to our office to be seen. In the office he was noted to be hypotensive with systolic blood pressure in the 80s and heart rate in the 30s with junctional bradycardia. He was therefore emergently referred to emergency room for further evaluation with possibility of pacemaker therapy. I have subsequent workup in the emergency room revealed acute renal failure with creatinine up to 2.6, baseline creatinine at 1.09 with potassium level in the sevens. He was then actively treated for hyperkalemia with hyperkalemia protocol and his potassium level gradually came down his heart rate improved. Subsequent EKG was suggestive of sinus rhythm with AV dissociation. However he is also noted to have Mobitz type 1 second-degree AV block. I was consulted to see for further management of his bradycardia and atrial fibrillation. Patient feels a lot better. Blood pressures improved. His creatinine has improved. Potassium level has improved. However noted on the monitor to be back in atrial fibrillation. Currently denies any lightheadedness or feeling like he was going to pass out. Couple of days ago he did fall at home. He drinks about 4 drinks of alcohol every day. No major bleeding issues. Review of Systems Constitutional: Constitutional: Reports frequent falls, Reports lethargy and Reports weakness Eyes: Eyes: Reports other visual disturbances ENT: Reports system reviewed and no additional complaints, except as documented Cardiovascular: Cardiovascular: Reports chest pain, Denies leg edema, Reports lightheadedness, Denies palpitations and Reports dyspnea Respiratory: Respiratory: Reports cough and Reports dyspnea Gastrointestinal: Gastrointestinal: Reports no additional gastrointestinal complaints Integumentary/Breasts: Skin/Breast: Reports system reviewed and no additional complaints, except as docu Neurologic: Reports system reviewed and no additional complaints, except as documented, Reports frequent falls and Reports weakness Endocrine: Endocrine: Denies palpitations [facility] Past Medical History Medical History (Updated 09/15/23 @ 15:30 by Danilo Em MD) Junctional bradycardia COVID-19 Blindness of left eye History of eye prosthesis Thyroid disease GERD (gastroesophageal reflux disease) Numbness On beta patrick at home On anticoagulant therapy Murmur PVD (peripheral vascular disease) Myocardial infarction Atrial fibrillation Alcohol dependence Post laminectomy syndrome Asthma Renal stones COPD (chronic obstructive pulmonary disease) Anemia Hepatitis C Hyperlipidemia HTN (hypertension) SVT (supraventricular tachycardia) CAD (coronary artery disease) Family History Family History Father Cancer Mother CVD (cardiovascular disease) Surgical History Surgical History Hx of eye surgery History of esophagogastroduodenoscopy (EGD) H/O colonoscopy S/P lobectomy of lung (~05/2021) Stented coronary artery Hx of thyroidectomy History of back surgery Hx of cardiac cath Social History Social History Household Members: None Housing: Apartment Are you a primary primary health care nurse to a significant other at home: No Do you presently have visiting nurse or other home services: No Alcohol intake: current Alcohol intake frequency: 3 or more drinks per day Alcohol type: hard liquor Patient Tobacco Use Status: Former Tobacco user Tobacco use type: Cigarette Cigarette Packs Per Day: 1 Cigarettes Per Day: 20.0 Years Smoked: 40 Second Hand Smoke Exposure: No Substance Use Type: Marijuana Advance Directives Date on File: 09/09/23 service: No Meds Allergies Allergy/AdvReac Type Severity Reaction Status Date / Time No Known Allergies Allergy Verified 09/14/23 15:50 [No Known Allergies*] Active Medications: Current Medications Acetaminophen (Acetaminophen 325 Mg Tablet) 650 mg PO Q6H PRN PRN Reason: Pain, Mild (Pain Scale 1-3), fever or headache Last Admin: 09/15/23 09:23 Dose: 650 mg Apixaban (Apixaban 5 Mg Tablet) 5 mg PO BID [facility] Last Admin: 09/15/23 09:16 Dose: 5 mg Aspirin (Aspirin Enteric Coated 81 Mg Tablet.Dr) 81 mg PO DAILY [facility] Last Admin: 09/15/23 09:16 Dose: 81 mg Atorvastatin Calcium (Atorvastatin Calcium 40 Mg Tablet) 40 mg PO DAILY [facility] Last Admin: 09/15/23 09:16 Dose: 40 mg Cyanocobalamin (Cyanocobalamin (Vitamin B-12) 500 Mcg Tablet) 500 mcg PO DAILY [facility] Last Admin: 09/15/23 09:16 Dose: 500 mcg Famotidine (Famotidine 20 Mg Tablet) 20 mg PO DAILY [facility] Last Admin: 09/15/23 09:16 Dose: 20 mg Fluticasone/Umeclidinium/Vilanterol (Fluticasone/Umeclidinium/Vilanterol 200/62.5/25 Blst.W.Dev) 1 puff INHALE RDAILY [facility] Last Admin: 09/15/23 11:40 Dose: 1 puff Folic Acid (Folic Acid 1 Mg Tablet) 1 mg PO DAILY [facility] Last Admin: 09/15/23 09:16 Dose: 1 mg Dextrose (D10) 250 mls @ 750 mls/hr IV Q15M PRN PRN Reason: per Hypoglycemia Standing Ord. Last Infusion: 09/14/23 20:20 Dose: Infused Dextrose (D10) 250 mls @ 750 mls/hr IV Q15M PRN PRN Reason: per Hypoglycemia Standing Ord. Sodium Chloride (Ns) 1,000 mls @ 100 mls/hr IVCONT .Q10H [facility] Last Admin: 09/15/23 06:01 Dose: 100 mls/hr Thiamine HCl 100 mg/ Sodium (Chloride) 101 mls @ 202 mls/hr IV DAILY [facility] Stop: 09/18/23 08:59 Last Infusion: 09/15/23 09:53 Dose: Infused Magnesium Oxide (Magnesium Oxide 400 Mg Tablet) 400 mg PO BIDWM [facility] Last Admin: 09/15/23 09:17 Dose: 400 mg Pharmacy Consult (Consult Rx Etoh Phenob Im/Po) 1 each MISCELLANE ONCE PRN; Protocol PRN Reason: Consult order Phenobarbital (Phenobarbital 30 Mg Tablet) 60 mg PO BID [facility] Stop: 09/16/23 21:01 Last Admin: 09/15/23 09:16 Dose: 60 mg Phenobarbital (Phenobarbital 30 Mg Tablet) 30 mg PO BID [facility] Stop: 09/18/23 21:01 Phenobarbital (Phenobarbital 30 Mg Tablet) 30 mg PO DAILY [facility] Stop: 09/20/23 09:01 Sodium Chloride (0.9 % Sodium Chloride Flush 3 Ml Syringe) [facility] Last Admin: 09/15/23 09:20 Dose: 3 ml Vitamin D (Cholecalciferol (Vitamin D3) 25 Mcg Tablet) 25 mcg PO DAILY [facility] Last Admin: 09/15/23 09:16 Dose: 25 mcg Home Medications ?Medication ?Instructions ?Recorded ?Confirmed ?Last Taken ?Type famotidine 40 mg tablet 40 mg PO BID 04/12/20 09/14/23 09/14/23 06:30 History gabapentin 600 mg tablet 600 mg PO BID 04/12/20 09/14/23 09/14/23 06:30 History lisinopril 40 mg tablet 40 mg PO DAILY 04/12/20 09/14/23 09/14/23 06:30 History albuterol sulfate 90 mcg/actuation 2 puff inhalation QID PRN 10/26/22 09/14/23 09/14/23 06:30 History aerosol inhaler Shortness Of Breath Or Wheezing acetaminophen 325 mg tablet 650 mg PO DAILY PRN Pain 05/19/23 09/14/23 09/14/23 06:30 History aspirin 81 mg tablet,delayed 81 mg PO DAILY 05/19/23 09/14/23 09/14/23 06:30 History release cholecalciferol (vitamin D3) 25 25 mcg PO DAILY 05/19/23 09/14/23 09/14/23 06:30 History mcg (1,000 unit) capsule (Vitamin D3) cyanocobalamin (vitamin B-12) 500 500 mcg PO DAILY 05/19/23 09/14/23 09/14/23 06:30 History mcg tablet (Vitamin B-12) fluticasone fur. 200 mcg-umeclid 1 ea inhalation DAILY 05/19/23 09/14/23 09/14/23 06:30 History 62.5 mcg-vilant 25 mcg inhalat.powder (Trelegy Ellipta) ipratropium 0.5 mg-albuterol 3 mg 3 ml inhalation QID PRN Shortness 05/19/23 09/14/23 09/14/23 06:30 History (2.5 mg base)/3 mL nebulization Of Breath Or Wheezing soln atorvastatin 40 mg tablet 40 mg PO DAILY 09/14/23 09/14/23 09/14/23 06:30 History magnesium oxide 400 mg (241.3 mg 400 mg PO BIDWM 09/14/23 09/14/23 09/14/23 06:30 History magnesium) tablet metoprolol succinate 25 mg 25 mg PO BID 09/14/23 09/14/23 09/14/23 06:30 History tablet,extended release 24 hr Physical Exam Vital Signs: Vital Signs: Last Vital Signs Temp 97 F 09/15/23 12:00 Pulse 77 09/15/23 12:00 Resp 18 09/15/23 12:00 BP 102/49 L 09/15/23 12:00 Pulse Ox 95 09/15/23 12:00 O2 Del Method Room Air 09/15/23 12:00 BMI result Body Mass Index 37.2 Const: General: cooperative, comfortable, no acute distress, alert and awake Nutritional Appearance: obese Orientation/consciousness: patient oriented x3 HEENT: Head: Yes normocephalic and Yes atraumatic Neck: Neck: Yes trachea midline, Yes supple and Yes no JVD Resp: Effort & Inspection: normal respiratory effort Auscultation: clear to auscultation bilaterally and diminished lung sounds Cardio: Jugular venous distension: no JVD Rhythm: abnormal rhythm irregularly irregular Heart sounds: S1 normal heart sound present, S2 normal heart sound present, no click, no gallops and Murmur heart sound present systolic mid GI: Auscultation: normal bowel sounds Skin: General skin exam: no rashes or lesions noted and ecchymosis Neuro: General: patient oriented x3 and no focal motor deficits Extrem: General: Yes no clubbing, cyanosis or edema Objective Labs and Meds 09/15/23 06:20 09/15/23 06:20 Lab results: Laboratory Results - last 24 hr 09/14/23 09/14/23 09/14/23 16:07 16:45 18:06 WBC 9.0 RBC 3.49 L Hgb 10.8 L Hct 31.8 L MCV 91.1 MCH 30.9 MCHC 34.0 RDW 14.2 Plt Count 248 D MPV 9.2 L Immature Gran % (Auto) 1.5 H Neut % (Auto) 67.9 Lymph % (Auto) 14.2 L Rogers % (Auto) 14.3 H Eos % (Auto) 1.3 Baso % (Auto) 0.8 Lymph # (Auto) 1.3 Rogers # (Auto) 1.3 H Eos # (Auto) 0.1 Baso # (Auto) 0.1 Abs Immat Gran (auto) 0.13 H Absolute Neuts (auto) 6.1 Absolute Nucleated RBC 0.000 Nucleated RBC % (auto) 0.0 PT 21.6 H D INR 1.8 H VBG pH VBG pCO2 VBG pO2 VBG HCO3 VBG O2 Saturation VBG Base Excess Sodium 132 L 129 L Potassium 7.2 H* D 7.4 H* Chloride 102 103 Carbon Dioxide 21 L 17 L Anion Gap 16 16 BUN 49 H 46 H Creatinine 2.61 H 2.50 H Estim Creat Clear Calc 36.3 37.9 Estimated GFR 24 26 POC Glucose 124 H Random Glucose 114 136 H Calcium 10.0 9.6 Phosphorus Magnesium 2.8 H Total Bilirubin 0.4 AST 14 ALT 14 Alkaline Phosphatase 71 Troponin I High Sens 10.0 D B-Natriuretic Peptide 1005 H Total Protein 7.3 Albumin 4.1 Urine Color Urine Appearance Urine pH Ur Specific [place] Urine Protein Urine Glucose (UA) Urine Ketones Urine Blood Urine Nitrite Ur Leukocyte Esterase Urine Opiates Screen Ur Buprenorphine Scrn Ur Oxycodone Screen Urine Methadone Screen Urine Fentanyl Screen Ur Barbiturates Screen Ur Phencyclidine Scrn Ur Amphetamines Screen U Benzodiazepines Scrn Urine Cocaine Screen U Marijuana (THC) Screen Ethyl Alcohol < 10 09/14/23 09/14/23 09/14/23 18:48 18:58 19:47 WBC RBC Hgb Hct MCV MCH MCHC RDW Plt Count MPV Immature Gran % (Auto) Neut % (Auto) Lymph % (Auto) Rogers % (Auto) Eos % (Auto) Baso % (Auto) Lymph # (Auto) Rogers # (Auto) Eos # (Auto) Baso # (Auto) Abs Immat Gran (auto) Absolute Neuts (auto) Absolute Nucleated RBC Nucleated RBC % (auto) PT INR VBG pH VBG pCO2 VBG pO2 VBG HCO3 VBG O2 Saturation VBG Base Excess Sodium 131 L Potassium 6.1 H* Chloride 104 Carbon Dioxide 22 Anion Gap 11 L BUN 46 H Creatinine 2.32 H Estim Creat Clear Calc 40.9 Estimated GFR 28 POC Glucose 147 H Random Glucose 145 H Calcium 9.5 Phosphorus Magnesium Total Bilirubin AST ALT Alkaline Phosphatase Troponin I High Sens B-Natriuretic Peptide Total Protein Albumin Urine Color Yellow Urine Appearance Clear Urine pH 5.5 Ur Specific [place] 1.010 Urine Protein Negative Urine Glucose (UA) Negative Urine Ketones Negative Urine Blood Negative Urine Nitrite Negative Ur Leukocyte Esterase Negative Urine Opiates Screen Not Detected Ur Buprenorphine Scrn Not Detected Ur Oxycodone Screen Not Detected Urine Methadone Screen Not Detected Urine Fentanyl Screen Not Detected Ur Barbiturates Screen Not Detected Ur Phencyclidine Scrn Not Detected Ur Amphetamines Screen Not Detected U Benzodiazepines Scrn Not Detected Urine Cocaine Screen Not Detected U Marijuana (THC) Screen Not Detected Ethyl Alcohol 09/14/23 09/14/23 09/14/23 20:33 21:30 22:38 WBC RBC Hgb Hct MCV MCH MCHC RDW Plt Count MPV Immature Gran % (Auto) Neut % (Auto) Lymph % (Auto) Rogers % (Auto) Eos % (Auto) Baso % (Auto) Lymph # (Auto) Rogers # (Auto) Eos # (Auto) Baso # (Auto) Abs Immat Gran (auto) Absolute Neuts (auto) Absolute Nucleated RBC Nucleated RBC % (auto) PT INR VBG pH 7.44 H VBG pCO2 30 VBG pO2 65 VBG HCO3 20 L VBG O2 Saturation 93.0 VBG Base Excess -2.2 Sodium 136 Potassium 4.6 D Chloride 107 Carbon Dioxide 19 L Anion Gap 15 BUN 41 H Creatinine 1.92 H Estim Creat Clear Calc 49.4 Estimated GFR 35 POC Glucose 175 H 163 H Random Glucose 151 H Calcium 9.6 Phosphorus 3.4 Magnesium 2.2 Total Bilirubin AST ALT Alkaline Phosphatase Troponin I High Sens B-Natriuretic Peptide Total Protein Albumin Urine Color Urine Appearance Urine pH Ur Specific [place] Urine Protein Urine Glucose (UA) Urine Ketones Urine Blood Urine Nitrite Ur Leukocyte Esterase Urine Opiates Screen Ur Buprenorphine Scrn Ur Oxycodone Screen Urine Methadone Screen Urine Fentanyl Screen Ur Barbiturates Screen Ur Phencyclidine Scrn Ur Amphetamines Screen U Benzodiazepines Scrn Urine Cocaine Screen U Marijuana (THC) Screen Ethyl Alcohol 09/15/23 06:20 WBC 8.3 RBC 3.36 L Hgb 10.1 L Hct 30.9 L MCV 92.0 MCH 30.1 MCHC 32.7 RDW 14.2 Plt Count 221 MPV 9.5 Immature Gran % (Auto) 0.7 H Neut % (Auto) 66.4 Lymph % (Auto) 15.9 L Rogers % (Auto) 15.3 H Eos % (Auto) 1.1 Baso % (Auto) 0.6 Lymph # (Auto) 1.3 Rogers # (Auto) 1.3 H Eos # (Auto) 0.1 Baso # (Auto) 0.1 Abs Immat Gran (auto) 0.06 H Absolute Neuts (auto) 5.5 Absolute Nucleated RBC 0.000 Nucleated RBC % (auto) 0.0 PT INR VBG pH VBG pCO2 VBG pO2 VBG HCO3 VBG O2 Saturation VBG Base Excess Sodium 137 Potassium 4.3 Chloride 107 Carbon Dioxide 22 Anion Gap 12 BUN 31 H Creatinine 1.50 H Estim Creat Clear Calc 63.2 Estimated GFR 46 POC Glucose Random Glucose 124 H Calcium 9.7 Phosphorus Magnesium 1.9 Total Bilirubin 0.3 AST 14 ALT 12 Alkaline Phosphatase 63 Troponin I High Sens B-Natriuretic Peptide Total Protein 6.6 Albumin 3.7 Urine Color Urine Appearance Urine pH Ur Specific [place] Urine Protein Urine Glucose (UA) Urine Ketones Urine Blood Urine Nitrite Ur Leukocyte Esterase Urine Opiates Screen Ur Buprenorphine Scrn Ur Oxycodone Screen Urine Methadone Screen Urine Fentanyl Screen Ur Barbiturates Screen Ur Phencyclidine Scrn Ur Amphetamines Screen U Benzodiazepines Scrn Urine Cocaine Screen U Marijuana (THC) Screen Ethyl Alcohol Imaging Radiologist's impression: Impressions Chest X-Ray 09/14/23 17:03 IMPRESSION: Unremarkable examination. Assessment and Plan (1) Junctional bradycardia: Status: Acute Junctional bradycardia in the setting of acute hyperkalemia due to acute renal failure of unclear etiology question hypertension. This was probably exacerbated by metoprolol therapy. This has now resolved and potassium level is normalized. Continue follow by Nephrology. Continue hydration. Unclear if this was related to Tikosyn therapy at all. However unlikely that we going to probably pursue with Tikosyn therapy at this point in time. No indication for pacemaker therapy as this was due to reversible electrolyte abnormality. (2) Atrial fibrillation: Status: Acute Recurrent atrial fibrillation this point time, currently rate controlled. Hold off on any medications except for oral anticoagulation therapy which should be reinstated. If he remains significantly symptomatic in the future, he is already failed Multaq and now Tikosyn therapy. May require either evaluation by EPS for ablation and/or amiodarone therapy although success rate is low. If rate becomes difficult control may use metoprolol for rate control. Hold off for now given his lowish blood pressure. Will follow with you Procedures Date of Service Date of Service: 09/15/23
[2023-09-15] MEDS: Gabapentin 600 MG TABLET PO (22:48)
[2023-09-16 04:00] VITALS: BP 143/61; PULSE 88; RESP 18; TEMP 36.6; O2SAT 98
[2023-09-16 07:27] VITALS: BP 114/68; PULSE 87; RESP 20; TEMP 36.6; O2SAT 96
[2023-09-16 07:28] LABS: Anion Gap 14 (12-20); Blood Urea Nitrogen 13 mg/dL (9-16); Calcium 9.8 mg/dL (8.4-10.2); Carbon Dioxide 21 mmol/L (22-29); Chloride 107 mmol/L (96-108); Creatinine Clr Calc Pharmacy 89.5; Estimated Glomerular Filt Rate > 60; Glucose Random 96 mg/dL (60-115); Sodium 137 mmol/L (135-145)
[2023-09-16] MEDS: Fluticasone/Umeclidinium/Vilanterol 200/62.5/25 BLST.W.DEV 1 PUFF INHALE (07:50)
[2023-09-16 07:52] VITALS: PULSE 74; RESP 18; O2SAT 97
--- OUTSIDE RECORDS SUMMARY | 2023-09-16 08:05 | XMS_ITS | Patient Health Record ---
Author Organization [facility] Address [address] [place] [address] Care Team Providers Care Fleshing Machine Operator Name Role Phone Zander CORADO, Kojo Primary Care Provider Power De La Torre Jr Unavailable [phone] Kenny Funez Unavailable [phone] ALLERGIES No Known Allergies RESULTS Component Value Reference Range Notes Complete Blood Count Auto Di ff Reviewed date:10/26/2022 03:44:53 PM Interpretation: Performing Lab:[facility], [address] [place] [id number] Notes/Report: White Blood Count 8.9 4.8-10.8 X10*3/uL [...] INR Reviewed date:10/26/2022 03:42:58 PM Interpretation: Performing Lab:[address] [id number] Notes/Report: Prothrombin Time 11.4 11.1-13.3 [employer] [...] Panel Reviewed date:10/26/2022 03:43:11 PM Interpretation: Performing Lab:[address] [phone] Notes/Report: Bilirubin Total 0.7 0.0-1.0 mg/dL Bilirubin Direct 0.2 0.0-0.5 mg/dL Aspartate Amino Transferase 35 5-37 U/L Alanine Aminotransferase 42 0-40 U/L Total Protein 7.3 6.5-8.0 g/dL Albumin Level 4.2 3.5-5.0 g/dL Alkaline Phosphatase 94 39-117 U/L Pathology Reviewed date:11/18/2022 08:50:20 AM Interpretation: Performing Lab:[address] [id number] Notes/Report: REASON FOR REFERRAL No Information MEDICATIONS [...] directed Orally O nce a day Active [place] 3 1000 MG 1 capsule Orally Onc [...] Problem Colon cancer screening (Z12.11) Active confirmed 881157404 Problem Rectal bleeding (K62.5) Active confirmed 34808527 Problem Left lower quadrant pain (R10.32) Active confirmed 597702404 Problem Other cirrhosis of liver (K74.69) Active confirmed Problem Chronic hepatitis C without hepatic coma (B18.2) Active confirmed 197398551 Problem Liver mass (R16.0) Active confirmed 359639426 Problem 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) Active confirmed [id number] Problem Abnormal ultrasound of liver (R93.2) Active confirmed 73710727265582675 Problem Abnormal MRI, liver (R93.2) Active confirmed 409367729 Problem Focal nodular hyperplasia of liver (K76.89) Active confirmed 349635783 Problem Elevated liver function tests (R94.5) Active confirmed 433279896 VITAL SIGNS Temperature 97.5 degrees Fahrenheit 12/02/2022 Blood pressure diastolic 00 mm Hg 12/02/2022 Height 73.5 in 12/02/2022 Blood pressure systolic 000 mm Hg 12/02/2022 Weight 238 lb 6 oz lbs 12/02/2022 BMI 31.02 kg/m2 12/02/2022 Encounters Encounter Location Date Provider Diagnosis [facility] Outpatient [address] [place] [id number] 11/11/2022 Power Barrera Jr Cedeno's esophagus with dysplasia K22.719 [facility] [address] [place] [id number] 09/29/2022 Kenny Funez [facility] [address] [place] [id number] 12/02/2022 Power Barrera Jr Cedeno's esophagus with dysplasia K22.719 [facility] [address] [place] [id number] 10/26/2022 Power Barrera Jr [facility] [address] [place] [id number] 11/18/2022 Power Barrera Jr ASSESSMENTS Encounter Date [...] Provider Name:Power hall , 12/01/2023 10:00:00 AM, [address] [place] [address], [address], [place], [address], Insurance Providers Payer Name Payer Address Payer Phone Subscriber Number Group Number Insured Name Patient Relationship to Insured Coverage Start Date Coverage End Date MEDICARE OF [place] [address] [place] [address] [id number] KAHLIL SIM Self - patient is the insured MEDICAID OF [facility] [address] [place] [address] [phone] [id number] KAHLIL SIM Self - patient is the insured MEDICAL (GENERAL) HISTORY Medical History History ICD Code Colon polyps, colonoscopy 04/13, multiple adenomas, three-year followup hepatitis C, F4 fibrosis, status post [place] rvoni x12 weeks with SVR hypertension depression back pain elevated cholesterol coronary artery disease, [place] 12/2017, ross nt placement leg numbness. anemia [...]
[2023-09-16] MEDS: Thiamine HCL 100 MG in 0.9 % Sodium Chloride 100 ML 202 MG IV (08:11)
[2023-09-16] MEDS: Magnesium Oxide 400 MG TABLET PO (08:12)
[2023-09-16] MEDS: PHENobarbitaL 30 MG TABLET 60 MG PO (08:12)
[2023-09-16] MEDS: Famotidine 20 MG TABLET PO (08:12)
[2023-09-16] MEDS: Cholecalciferol (Vitamin D3) 25 MCG TABLET PO (08:12)
[2023-09-16] MEDS: Cyanocobalamin (Vitamin B-12) 500 MCG TABLET PO (08:12)
[2023-09-16] MEDS: Aspirin Enteric Coated 81 MG TABLET.DR PO (08:12)
[2023-09-16] MEDS: Gabapentin 600 MG TABLET PO (08:12)
[2023-09-16] MEDS: Folic Acid 1 MG TABLET PO (08:12)
[2023-09-16] MEDS: Atorvastatin Calcium 40 MG TABLET PO (08:12)
[2023-09-16] MEDS: Apixaban 5 MG TABLET PO (08:12)
[2023-09-16] MEDS: 0.9 % Sodium Chloride Flush 3 ML SYRINGE IVFLUSH (08:13)
--- NOTE | 2023-09-16 10:48 | P.PNCA_ITS ---
Subjective Subjective Date of Service: 09/16/23 Principal diagnosis: Atrial fibrillation, hyperkalemia, JOVITA Interval history: Patient hemodynamically stable feeling very well. Remains in atrial fibrillation with controlled rate. Renal function is back to baseline. Potassium level is adequate. Denies any lightheadedness, syncope, abnormal visual issues. Denies any clear orthopnea, PND. No chest pain Review of Systems Review of Systems Yes all other systems are reviewed and are negative Physical Exam Vital Signs: Last Vital Signs Temp 97.9 F 09/16/23 07:27 Pulse 74 09/16/23 07:52 Resp 18 09/16/23 07:52 BP 114/68 09/16/23 07:27 Pulse Ox 96 09/16/23 07:27 O2 Del Method Room Air 09/16/23 07:27 BMI result Body Mass Index 37.2 Const General: cooperative, comfortable, no acute distress, alert and awake Nutritional Appearance: obese Orientation/consciousness: patient oriented x3 HEENT Head: Yes normocephalic and Yes atraumatic Neck Neck: Yes trachea midline, Yes supple and Yes no JVD Resp Effort & Inspection: normal respiratory effort Auscultation: clear to auscultation bilaterally and diminished lung sounds Cardio Jugular venous distension: no JVD Rhythm: abnormal rhythm irregularly irregular Heart sounds: S1 normal heart sound present, S2 normal heart sound present, no click, no gallops and Murmur heart sound present systolic mid GI Auscultation: normal bowel sounds Skin General skin exam: no rashes or lesions noted and ecchymosis Neuro General: patient oriented x3 and no focal motor deficits Extrem General: Yes no clubbing, cyanosis or edema Objective Labs and Meds 09/15/23 06:20 09/16/23 06:38 Lab results: Laboratory Results - last 24 hr 09/16/23 06:38 Sodium 137 Potassium 5.0 Chloride 107 Carbon Dioxide 21 L Anion Gap 14 BUN 13 Creatinine 1.06 Estim Creat Clear Calc 89.5 Estimated GFR > 60 Random Glucose 96 Calcium 9.8 Progress Note: A&P Assessment and plan (1) Atrial fibrillation: Status: Acute Assessment and Plan: Atrial fibrillation, recurrent, persistent without any obvious worsening symptoms at this point time at rest. Will see how he would fare at home. Currently rate is controlled without any medications. Hold off any rate control medications. Continue full oral anticoagulation for now. Will follow with outpatient Holter monitor. No indication for pacing therapy at this point in time. Question whether we would pursue rhythm control will depend on how he is doing clinically with persistent atrial fibrillation. Limited options. (2) CAD (coronary artery disease): Status: Acute Assessment and Plan: Stable CAD without any new symptoms at current point time. Continue high- intensity statin therapy. Currently on full oral anticoagulation and will avoid aspirin therapy. Hold off on other medications for blood pressure such as lisinopril as blood pressure is on the lower side and had recent JOVITA. Follow-up with nephrology. Will follow with him in outpatient as scheduled. Time Spent With Patient Time: Total time managing care of this patient today ____ minutes. Progress Note: Quality Stroke Does the patient have a stroke diagnosis?: No Procedures Date of Service Date of Service: 09/16/23
[2023-09-16 11:25] VITALS: BP 138/66; PULSE 84; RESP 20; TEMP 36.3; O2SAT 95
--- NOTE | 2023-09-16 11:54 | P.DS_ITS ---
DS: Providers Provider Date of Service: 09/16/23 Date of admission: 09/14/23 20:45 Primary care physician: Kojo Fermin MD Consults: 09/14/23 20:47 Consult to Nephrology Routine Consulting Provider: [facility] Reason for consultation: JOVITA, hyperk, acidosis Has provider been notified: No 09/15/23 11:44 Consult to Cardiology Routine Consulting Provider: [facility] Reason for consultation: Hx Afiv, Mobitz type 1, symptomatic Bradycardia DS: Diagnosis Discharge Diagnosis (1) Atrial fibrillation: Status: Acute (2) CAD (coronary artery disease): Status: Acute DS: Summary Hospital Course Hospital Course: Admission note HPI Shane Nichole is a 68 years old man with past medical history significant for alcohol abuse, essential hypertension, hyperlipidemia, coronary artery disease, persistent atrial fibrillation on chronic anticoagulation with Eliquis, hep C and moderate aortic stenosis presents to the emergency department complaining of 2 day history of mild retrosternal chest pain, dizziness unsteady gait. He also reports some shortness on breath. He had a recent mechanical fall landing on his knees and denies head trauma. Denied nausea, vomiting, diarrhea, cough, headache fevers or chills. Denies any acute bleeding or use of diuretics. He does take lisinopril. He continues to drink alcohol about 4 drinks drinks of vodka and soda (16 oz) -last drink was last night and said that he has not interested about quitting alcohol consumption. He denied illicit drug use. Chart review: Cardiology note September 07 - metoprolol was stopped and to continue Tikosyn. Cardiology notes from today: Patient was changed to metoprolol. Patient reports to cardiology provider that he was at work yes terday became diaphoretic, had an episode of chest pain and an episode of color purple vision. In the ED, he was found to have marked bradycardia (lowest 29) and hypotension (lowest 86/36). Oxygen saturation and temperature are normal. Blood workup was remarkable for marked hyperkalemia of 7.4, bicarb 17, creatinine of 2.61 and magnesium 2.8. Anion gap is normal. BNP is 1105 and troponin is negative. UA showed no evidence of UTI. Toxicology is negative and ethanol level is < 10. CXR is negative for acute changes. ECG - junctional bradycardia with a heart rate of 34 beats per minutes. ED tx: NS 2 L bolus, bicarb 50 mEq IV X2, albuterol 10 mg inhalerX2, insulin 10 mg IV, glucose 1 mg IV, calcium gluconate 2 g IV, Lokelma 10 g PO. Hospital course The patient was admitted to the hospital and treated for # Hypotension and bradycardia likely secondary to conduction abnormalities secondary to Acute hyperkalemia which responded well to hyperkalemia management with Lokelma and IVF improving back to normal. # History of atrial fibrillation presented in 2nd AV block, Mobitz I that later went back to Afib. on 09/15 he converted back to sinus rhythm. followed by mountain or glacier guide who recommended to DC Metoprolol at this point and follow as outpatient. #Acute kidney injury, likely due to dehydration due to alcohol abuse in the setting of lisinopril use. responded well to IV fluids and holding nephrotoxics. Creatinine improved back to normal baseline. will DC Lisinopril on discharge per cardiology recommendations and monitor BP and KFT. # Hypermagnesemia secondary to JOVITA + magnesium pills use. resolved with Holding magnesium. # Acute Hyponatremia, resolved with IV fluids # For history of Alcohol abuse with high risk for withdrawal he was started on CIWA protocol as part of Phenobarbital protocol with supplement of thiamine, folic acid and multivitamins. encouraged to consider quitting alcohol consumption but he is not interested in doing so now Discharge plan Keep yourself well hydrated Stop Metoprolol Stop Lisinopril Monitor blood pressure and heart rate at home and follow up with cardiology as needed Time Attestation Discharge Coordination Time (in mins): 37 Quality: Safe Use of Opioids Does Pt have an Active Cancer Diagnosis on the Problem List?: No Quality: Stroke Does the patient have a stroke diagnosis?: No Physical Exam Vital Signs: Vital Signs: Last Vital Signs Temp 97.4 F 09/16/23 11:25 Pulse 84 09/16/23 11:25 Resp 20 09/16/23 11:25 BP 138/66 09/16/23 11:25 Pulse Ox 95 09/16/23 11:25 O2 Del Method Room Air 09/16/23 11:25 BMI result Body Mass Index 37.2 Const: Other: Constitutional : Awake, interactive, not in distress Neck : Normal inspection, Supple Cardiovascular : regular regular , no JVP, no lower extremity edema Respiratory : good bilateral air entry, no crackles, wheezes or rhonchi Gastrointestinal: soft, lax, Normal bowel sounds, Non tender Skin : Warm, Dry Neurological : Alert & oriented x3, No focal deficit DS: Data Data Completed and Pending Labs on day of discharge: Laboratory Results - last 24 hr 09/16/23 06:38 Sodium 137 Potassium 5.0 Chloride 107 Carbon Dioxide 21 L Anion Gap 14 BUN 13 Creatinine 1.06 Estim Creat Clear Calc 89.5 Estimated GFR > 60 Random Glucose 96 Calcium 9.8 Imaging Chest x-ray: Radiologist's impression: ITS Impressions Chest X-Ray 09/14/23 17:03 IMPRESSION: Unremarkable examination. Discharge Plan Discharge Anticipated Discharge Date/Time: 09/16/23 11:50 Patient Disposition: Home, Self-Care Discharge Diagnosis: Kidney injury Electrolytes imbalance Referrals: Kojo Fermin MD [Primary Care Provider] - 1 Week Discharge Medications: Continued omega-3 acid ethyl esters 1 gram capsule 2 cap PO BID Qty: 90 3RF amlodipine 10 mg tablet 10 mg PO DAILY Qty: 90 3RF Eliquis 5 mg tablet 5 mg PO BID Qty: 60 5RF Hold Instructions: Resume on 06/06/23. hold for 48 hours aspirin 81 mg Tablet,Delayed Release (Dr/Ec) 81 mg PO DAILY cyanocobalamin (vitamin B-12) [Vitamin B-12] 500 mcg Tablet 500 mcg PO DAILY cholecalciferol (vitamin D3) [Vitamin D3] 25 mcg (1,000 unit) Capsule 25 mcg PO DAILY acetaminophen 325 mg Tablet 650 mg PO DAILY PRN (Reason: Pain) Patient Comments: TOOK 650MG [id number] Trelegy Ellipta 200-62.5-25 mcg blister with device 1 ea INHALATION DAILY ipratropium-albuterol 0.5 mg-3 mg(2.5 mg base)/3 mL Solution For Nebulization 3 ml INHALATION QID PRN (Reason: Shortness Of Breath Or Wheezing) atorvastatin 40 mg tablet 40 mg PO DAILY magnesium oxide 400 mg (241.3 mg magnesium) tablet 400 mg PO BIDWM gabapentin 600 mg tablet 600 mg PO BID famotidine 40 mg tablet 40 mg PO BID albuterol sulfate 90 mcg/actuation HFA aerosol inhaler 2 puff inhalation QID PRN (Reason: Shortness Of Breath Or Wheezing) Discontinued lisinopril 40 mg tablet 40 mg PO DAILY metoprolol succinate 25 mg tablet extended release 24 hr 25 mg PO BID Discharge Orders: Discharge Order (Routine); Ordered 09/16/23 Ordered By: Melody Garza Diet: Low salt diet Activity on Discharge: As tolerated Stand Alone Forms: Patient Portal Discharge page Print Language: Setswana Care Plan Goals: Keep yourself well hydrated Stop Metoprolol Stop Lisinopril Monitor blood pressure and heart rate at home and follow up with cardiology as needed Health Concerns: Read below Plan of Treatment: Read below Assessment: Read below
--- NOTE | 2023-09-16 13:43 | MHC.CM.PN ---
Pt is medically cleared for discharge home self-care, pt will arrange his ow transportation home.
== END 2023-09-16 12:42 | disposition home or self-care (01) | DRG 641 ==
LOC: HO.ED 17:24 → HO.EDOVER 20:52 → HO.IMC 23:42
PROVIDERS: Registered Nurse Emergency; Admitting Provider Internal Medicine; Emergency Provider Emergency Medicine; PCP Internal Medicine; Visit Provider Student in an Organized Health Care Education/Training Program
DX: E87.5 Hyperkalemia (principal); I48.19 Other persistent atrial fibrillation; N17.9 Acute kidney failure, unspecified; I35.0 Nonrheumatic aortic (valve) stenosis; F10.20 Alcohol dependence, uncomplicated; J44.9 Chronic obstructive pulmonary disease, unspecified; R00.1 Bradycardia, unspecified; I25.10 Atherosclerotic heart disease of native coronary artery without angina pectoris; H54.62 Unqualified visual loss, left eye, normal vision right eye; I95.9 Hypotension, unspecified; I44.1 Atrioventricular block, second degree; E86.0 Dehydration; E83.41 Hypermagnesemia; Z90.2 Acquired absence of lung [part of]; Z87.891 Personal history of nicotine dependence; Z79.01 Long term (current) use of anticoagulants; Z79.82 Long term (current) use of aspirin; Z79.899 Other long term (current) drug therapy
CPT/HCPCS: 36415; 71045; 80048; 80053; 80307; 81003; 82803; 82947; 83735; 83880; 84100; 84484; 85025; 85610; 93005; 94640; 99212; 99285; J0613; J1610; J2560; J3411

== ENCOUNTER → 2023-09-14 20:45 | Outpatient (BNV) | payer MEDICARE, MEDICAID, SELFPAY | PROVIDERS: Admitting Provider Internal Medicine; Emergency Provider Emergency Medicine; PCP Internal Medicine; Visit Provider Internal Medicine | DX: I48.91 Unspecified atrial fibrillation (principal); I25.10 Atherosclerotic heart disease of native coronary artery without angina pectoris | CPT/HCPCS: 99223; 99233; 99239 ==

== ENCOUNTER → 2023-09-14 20:45 | Outpatient (BNV) | payer MEDICARE, MEDICAID, SELFPAY | PROVIDERS: Admitting Provider Internal Medicine; Emergency Provider Emergency Medicine; PCP Internal Medicine; Visit Provider Internal Medicine Nephrology | DX: N17.9 Acute kidney failure, unspecified (principal) | CPT/HCPCS: 99222 ==

== ENCOUNTER → 2023-09-14 20:45 | Outpatient (BNV) | payer MEDICARE, MEDICAID, SELFPAY | PROVIDERS: Admitting Provider Internal Medicine; Emergency Provider Emergency Medicine; PCP Internal Medicine; Visit Provider Internal Medicine Cardiovascular Disease | DX: I48.91 Unspecified atrial fibrillation (principal); I25.10 Atherosclerotic heart disease of native coronary artery without angina pectoris | CPT/HCPCS: 99222; 99233 ==

== ENCOUNTER → 2023-09-21 12:54 | Outpatient (REF) | payer MEDICARE, MEDICAID, SELFPAY ==
--- NOTE | 2023-09-21 13:00 | HM_ITS ---
Conclusion: 1. Patient was monitored for total period of 2 days and 21 hours 2. Baseline rhythm predominantly is atrial fibrillation/flutter, 80% of the time with adequate rate control 3. No significant pauses noted 4. No patient reported events MTDD
== END ==
LOC: HO.CARD 12:54
PROVIDERS: Visit Provider Internal Medicine Cardiovascular Disease
DX: I47.10 Supraventricular tachycardia, unspecified (principal)
CPT/HCPCS: 93242

== ENCOUNTER → 2023-09-21 13:00 | Outpatient (BNV) | payer MEDICARE, MEDICAID, SELFPAY | PROVIDERS: Visit Provider Internal Medicine Cardiovascular Disease | DX: I48.91 Unspecified atrial fibrillation (principal) | CPT/HCPCS: 93244 ==

== ENCOUNTER 2023-09-29 10:40 | Emergency (ER) | payer MEDICARE, MEDICAID, SELFPAY ==
--- NOTE | ~2023-09-29 | XR_ITS ---
EXAMINATION: XR WRIST, RIGHT CLINICAL INFORMATION: Pain for a few days COMPARISON: None available. TECHNIQUE: PA, lateral, and oblique views of the right wrist. FINDINGS: Vascular calcifications noted. The patient diabetic? There is diffuse osteopenia. Minor areas of degenerative change seen at the junction between the scaphoid and the multangular bones. No evidence though for fracture, dislocation or destructive lesion or joint effusion. XR/XR wrist RT min 3V IMPRESSION: Chronic degenerative change. No acute findings.
[2023-09-29 11:13] VITALS: BP 146/88; PULSE 99; RESP 18; TEMP 36.4; O2SAT 96; BMI 30.9
--- NOTE | 2023-09-29 11:14 | ED.UPPEXIN ---
HPI - Extremity Injury (Upper) General Chief Complaint: Extremity Injury, Upper Stated Complaint: wrist pain Time Seen by Provider: 09/29/23 11:30 Source: patient Mode of arrival: ambulatory Limitations: no limitations History of Present Illness ED Provider: Jasmin Neves PA-C HPI narrative: 68 year old male with a PMHx junctional bradycardia, PR, a-fib, alcohol dependence, asthma, COPD, hepatitis C, HLD, HTN, SVT, gout, and CAD presents to the ER due to right wrist pain that began yesterday. States that the pain was sudden and is radiating to right shoulder describes it as burning and sharp, 8/10 pain, denies injuries. Reports having a gout episode in the past of the same extremity. Denies fever, chills, dyspnea, chest pain, N/V. Relieving factors: none Exacerbating factors: none Associated symptoms: denies other symptoms Related Data Home Medications ?Medication ?Instructions ?Recorded ?Confirmed famotidine 40 mg tablet 40 mg PO BID 04/12/20 09/14/23 gabapentin 600 mg tablet 600 mg PO BID 04/12/20 09/14/23 albuterol sulfate 90 mcg/actuation 2 puff inhalation QID PRN 10/26/22 09/14/23 aerosol inhaler Shortness Of Breath Or Wheezing acetaminophen 325 mg tablet 650 mg PO DAILY PRN Pain 05/19/23 09/14/23 aspirin 81 mg tablet,delayed 81 mg PO DAILY 05/19/23 09/14/23 release cholecalciferol (vitamin D3) 25 25 mcg PO DAILY 05/19/23 09/14/23 mcg (1,000 unit) capsule (Vitamin D3) cyanocobalamin (vitamin B-12) 500 500 mcg PO DAILY 05/19/23 09/14/23 mcg tablet (Vitamin B-12) fluticasone fur. 200 mcg-umeclid 1 ea inhalation DAILY 05/19/23 09/14/23 62.5 mcg-vilant 25 mcg inhalat.powder (Trelegy Ellipta) ipratropium 0.5 mg-albuterol 3 mg 3 ml inhalation QID PRN Shortness 05/19/23 09/14/23 (2.5 mg base)/3 mL nebulization Of Breath Or Wheezing soln atorvastatin 40 mg tablet 40 mg PO DAILY 09/14/23 09/14/23 magnesium oxide 400 mg (241.3 mg 400 mg PO BIDWM 09/14/23 09/14/23 magnesium) tablet Previous Rx's ?Medication ?Instructions ?Recorded omega-3 acid ethyl esters 1 gram 2 cap PO BID #90 caps 01/27/21 capsule amlodipine 10 mg tablet 10 mg PO DAILY #90 tabs 09/09/22 apixaban 5 mg tablet (Eliquis) 5 mg PO BID #60 tabs 05/21/23 prednisone 20 mg tablet 20 mg PO DAILY 12 days #26 tabs 09/29/23 Allergies Allergy/AdvReac Type Severity Reaction Status Date / Time No Known Allergies Allergy Verified 09/29/23 11:13 [No Known Allergies*] Review of Systems Constitutional: Constitutional: Reports no additional constitutional complaints, Denies chills, Denies fever(s) and Denies night sweats Eyes: Eyes: Reports no additional eye complaints, Denies blurry vision, Denies change in vision, Denies diplopia, Denies eye discharge, Denies loss of vision and Denies eye pain ENT: Denies dizziness Cardiovascular: Cardiovascular: Reports no additional cardiovascular complaints, Denies chest pain, Denies lightheadedness, Denies Loss of Consciousness and Denies dyspnea Respiratory: Respiratory: Reports no additional respiratory complaints and Denies dyspnea Gastrointestinal: Gastrointestinal: Reports no additional gastrointestinal complaints, Denies abdominal pain, Denies melena, Denies hematochezia, Denies change in bowel habits and Denies change in stool character Genitourinary: Genitourinary: Reports no additional male genitourinary complaints, Denies hematuria, Denies oliguria, Denies difficulty urinating, Denies dysuria, Denies urinary frequency, Denies urinary hesitancy, Denies urinary incontinence and Denies urinary urgency Musculoskeletal: Musculoskeletal: Reports no additional musculoskeletal complaints, Denies numbness and Denies tingling Comments: right wrist pain Neurologic: Reports as per HPI, Denies dizziness, Denies loss of vision, Denies numbness and Denies tingling Psychiatric: Psychiatric: Reports no additional psychiatric complaints Endocrine: Endocrine: Reports no additional endocrine complaints Hematologic/Lymphatic: Hematologic/Lymphatic: Reports no additional hematologic/lymphatic complaints Allergic/Immunologic: Allergic/Immunologic: Reports no additional allergic/immunologic complaints PMFSH Past Medical History Attestation statement: The following information was validated with the patient. Source: old records reviewed and nursing notes reviewed Medical History Junctional bradycardia COVID-19 Blindness of left eye History of eye prosthesis Thyroid disease GERD (gastroesophageal reflux disease) Numbness On beta patrick at home On anticoagulant therapy Murmur PVD (peripheral vascular disease) Myocardial infarction Atrial fibrillation Alcohol dependence Post laminectomy syndrome Asthma Renal stones COPD (chronic obstructive pulmonary disease) Anemia Hepatitis C Hyperlipidemia HTN (hypertension) SVT (supraventricular tachycardia) CAD (coronary artery disease) Surgical History Hx of eye surgery History of esophagogastroduodenoscopy (EGD) H/O colonoscopy S/P lobectomy of lung (~05/2021) Stented coronary artery Hx of thyroidectomy History of back surgery Hx of cardiac cath Family History Family History Father Cancer Mother CVD (cardiovascular disease) Social History Social History Household Members: None Housing: Apartment Are you a primary associate director career services to a significant other at home: No Do you presently have visiting nurse or other home services: No Alcohol intake: current Alcohol intake frequency: 3 or more drinks per day Alcohol type: hard liquor Patient Tobacco Use Status: Former Tobacco user Tobacco use type: Cigarette Cigarette Packs Per Day: 1 Cigarettes Per Day: 20.0 Years Smoked: 40 Second Hand Smoke Exposure: No Substance Use Type: Marijuana Advance Directives: Yes Advance Directives on File: Yes Advance Directives Date on File: 09/09/23 Do you have a plan to hurt others: No Plan service: No Physical Exam Vital Signs: Vital Signs: Last Vital Signs Temp 98.6 F 09/29/23 13:11 Pulse 88 09/29/23 13:11 Resp 18 09/29/23 13:11 BP 140/88 H 09/29/23 13:11 Pulse Ox 99 09/29/23 13:11 O2 Del Method Room Air 09/29/23 13:11 BMI result Body Mass Index 30.9 Const: General: cooperative, no acute distress, alert and awake Nutritional Appearance: well nourished Orientation/consciousness: patient oriented x3 Limitations: no limitations HEENT: Head: Yes normal to inspection and Yes atraumatic Ears: hearing grossly normal bilaterally and external ears normal General nose exam: Normal external nose present, no nasal discharge noted and no epistaxis Face and sinus: Yes normal facial exam, No abrasion and No laceration Mouth: Normal oral and palatal mucosa present, no drooling and no muffled voice Eyes: General: appearance normal, both eyes and all related structures Periorbital: periorbital findings normal Eyelids: Yes eyelids normal Conjunctivae: conjunctivae normal Pupils: Equal, round and reactive pupils present EOM: EOMs intact bilaterally Neck: Neck: Yes normal visual inspection, Yes full ROM and Yes no lymphadenopathy Chest: Chest palpation & inspection: normal inspection of the chest Resp: Effort & Inspection: normal respiratory effort and able to speak in complete sentences GI: Inspection: Yes normal to inspection Neuro: General: patient oriented x3 and moves all extremities Cranial nerves: Yes Equal, round and reactive pupils present Cognition (Neuro): normal cognition Extrem: Other: minimal erythema to the dorsal right wrist General: Yes full ROM and Yes capillary refill normal Psych: Appearance: grossly normal Mental Status: mental status grossly normal Affect: normal affect Attitude: cooperative Thought process: Normal thought process present Thought content: Normal thought content present Insight: Good insight present (Psych) Course Course Course Narrative: This is an RME: Additional HPI, ROS, PE not included below will be deferred to primary provider. RME assessment and note performed by: Svitlana Boggs PA-C This is a 68-year-old male, with a history of gout, hypertension, hyperlipidemia, SVT, who presents to the emergency department with complaints of atraumatic right wrist pain since yesterday. Patient denies any repetitious movements. He has been wearing a splint with minimal relief. Range of motion to the right wrist, with exquisite tenderness on palpation, question gout. Strong radial pulse. Able to make a fist. He does have slight erythema noted to his anterior aspect however this is unclear whether not this from tight splint he was just wearing. Plan: Labs, x-ray, further ER evaluation needed. Medications Administered Discontinued Medications Generic Name Dose Route Start Last Admin Trade Name Freq PRN Reason Stop Dose Admin Methylprednisolone Sodium Succinate 60 mg 09/29/23 12:54 09/29/23 13:08 Methylprednisolone Sod Succ 125 Mg/2 Ml Vial IM 09/29/23 12:55 60 mg ONCE ONE Administration Medical Decision Making Medical Decision Making [facility] Narrative: 68 year old male with a PMHx junctional bradycardia, PR, a-fib, alcohol dependence, asthma, COPD, hepatitis C, HLD, HTN, SVT, and CAD presents to the ER due to right wrist pain that began yesterday. On arrival to the ER, the patient is hemodynamically stable. Physical exam the right wrist is warm to touch, red discoloration, and marked tenderness. Limited active ROM, full passive ROM. Otherwise, unremarkable. History and PE concerning for gout. Labs are unremarkable, right wrist x-ray demonstrates chronic degenerative change. No other acute findings. Due to use of Eliquis will be treating with corticosteroids instead of NSAIDS. Patient cleared for discharge. Differential Diagnosis Differential Diagnoses: The differential diagnosis associated with the presentation includes gout, pseudogout, osteoarthritis, fracture Admission/Observation Consideration of admission/observation: Escalation of care including admission/observation considered Patient would have been admitted to the hospital had his work up had any findings where hospital admission was appropriate and his clinical presentation warranted hospital admission. Lab Data [facility] Lab Attestation statement: I reviewed the patient's lab results. My interpretation of these results are in the [facility] Rationale portion of this note. 09/29/23 11:44 09/29/23 11:44 Labs: Lab Results 09/29/23 Range/Units 11:44 WBC 12.4 H (4.8-10.8) X10*3/uL RBC 4.00 L (4.60-5.80) X10*6/uL Hgb 12.1 L (14.0-18.0) g/dl Hct 36.1 L (42.0-52.0) % MCV 90.3 (80.0-98.0) fL MCH 30.3 (27.0-33.0) pg MCHC 33.5 (31.0-36.0) g/dl RDW 14.2 (11.0-16.0) % Plt Count 198 (160-400) X10*3/uL MPV 9.0 L (9.4-12.4) fL Immature Gran % (Auto) 0.6 H (0.0-0.4) % Neut % (Auto) 78.2 H (45-73) % Lymph % (Auto) 9.2 L (20-40) % Fannin % (Auto) 10.4 (2-11) % Eos % (Auto) 1.0 (0-4) % Baso % (Auto) 0.6 (0-2) % Lymph # (Auto) 1.1 L (1.2-4.9) X10*3/uL Fannin # (Auto) 1.3 H (0.1-1.2) X10*3/uL Eos # (Auto) 0.1 (0.0-0.4) X10*3/uL Baso # (Auto) 0.1 (0.0-0.2) X10*3/uL Abs Immat Gran (auto) 0.07 H (0.00-0.03) X10*3/uL Absolute Neuts (auto) 9.7 H (2.0-8.3) x10*3/uL Absolute Nucleated RBC 0.000 (0.0-0.012) X10*3/uL Nucleated RBC % (auto) 0.0 (0.0-0.2) /100WBC ESR 34 H (0-15) MM/HR Sodium 134 L (135-145) mmol/L Potassium 5.1 (3.3-5.1) mmol/L Chloride 105 (96-108) mmol/L Carbon Dioxide 19 L (22-29) mmol/L Anion Gap 15 (12-20) BUN 23 H (9-16) mg/dL Creatinine 1.32 (0.5-1.4) mg/dL Estim Creat Clear Calc 65.7 Estimated GFR 54 Random Glucose 123 H (60-115) mg/dL Uric Acid 7.9 H (3.4-7.0) mg/dL Calcium 10.1 (8.4-10.2) mg/dL Total Bilirubin 0.5 (0.0-1.0) mg/dL Direct Bilirubin 0.1 (0.0-0.5) mg/dL AST 23 (5-37) U/L ALT 20 (0-40) U/L Alkaline Phosphatase 100 (39-117) U/L C-Reactive Protein 1.36 H (< or = 0.50) mg/dL Total Protein 8.0 (6.5-8.0) g/dL Albumin 4.3 (3.5-5.0) g/dL Independent Interpretation I performed an independent interpretation of an: Plain X-Ray Interpretation: My interpretation is in agreement with the radiologist's impression of this imaging study. EXAMINATION: XR WRIST, RIGHT CLINICAL INFORMATION: Pain for a few days COMPARISON: None available. TECHNIQUE: PA, lateral, and oblique views of the right wrist. FINDINGS: Vascular calcifications noted. The patient diabetic? There is diffuse osteopenia. Minor areas of degenerative change seen at the junction between the scaphoid and the multangular bones. No evidence though for fracture, dislocation or destructive lesion or joint effusion. XR/XR wrist RT min 3V IMPRESSION: Chronic degenerative change. No acute findings. Dictated By: Stephan Bridges MD Signed By: Electronically signed by Stephan Bridges MD 09/29/23 3932 Radiology Impression Discussion of test interpretation with radiology: I have reviewed the radiologist's reading. Discharge Plan Discharge Clinical Impression: Gout Patient Disposition: Home, Self-Care Instructions: Low Purine Diet (ED), Gout (ED) Additional Instructions: Follow up with your primary care provider. Return to the emergency department immediately if your symptoms worsen or if you develop any dizziness, shortness of breath, difficulty breathing, chest pain, blurry vision, loss of vision, nausea, vomiting, abdominal pain, fever, chills, back pain, or any other complaints. Prescriptions: New prednisone 20 mg tablet 20 mg PO DAILY 12 Days Qty: 26 0RF Rx Instructions: Take 3 tablets for 5 days THEN; Take 2 tablets for 4 days THEN; Take 1 tablet for 3 days No Action omega-3 acid ethyl esters 1 gram capsule 2 cap PO BID Qty: 90 3RF amlodipine 10 mg tablet 10 mg PO DAILY Qty: 90 3RF Eliquis 5 mg tablet 5 mg PO BID Qty: 60 5RF Hold Instructions: Resume on 06/06/23. hold for 48 hours aspirin 81 mg Tablet,Delayed Release (Dr/Ec) 81 mg PO DAILY cyanocobalamin (vitamin B-12) [Vitamin B-12] 500 mcg Tablet 500 mcg PO DAILY cholecalciferol (vitamin D3) [Vitamin D3] 25 mcg (1,000 unit) Capsule 25 mcg PO DAILY acetaminophen 325 mg Tablet 650 mg PO DAILY PRN (Reason: Pain) Patient Comments: TOOK 650MG [id number] Trelegy Ellipta 200-62.5-25 mcg blister with device 1 ea INHALATION DAILY ipratropium-albuterol 0.5 mg-3 mg(2.5 mg base)/3 mL Solution For Nebulization 3 ml INHALATION QID PRN (Reason: Shortness Of Breath Or Wheezing) atorvastatin 40 mg tablet 40 mg PO DAILY magnesium oxide 400 mg (241.3 mg magnesium) tablet 400 mg PO BIDWM gabapentin 600 mg tablet 600 mg PO BID famotidine 40 mg tablet 40 mg PO BID albuterol sulfate 90 mcg/actuation HFA aerosol inhaler 2 puff inhalation QID PRN (Reason: Shortness Of Breath Or Wheezing) Referrals: Kojo Fermin MD [Primary Care Provider] - Interventions: ED Discharge Assessment Last Done: 09/29/23 13:11 Discharge Date/Time: 09/29/23 13:12 Print Language: Guinean
--- OUTSIDE RECORDS SUMMARY | 2023-09-29 11:29 | XMS_ITS | Patient Health Record ---
Author Organization [facility] Address [address] [place] [address] Care Team Providers Care Tank House Supervisor Name Role Phone Zander CORADO, Kojo Primary Care Provider Power De La Torre Jr Unavailable Kenny Funez Unavailable [phone] ALLERGIES No Known Allergies RESULTS Component Value Reference Range Notes Complete Blood Count Auto Di ff Reviewed date:10/26/2022 03:44:53 PM Interpretation: Performing Lab:[facility], [address] [place] [id number] Notes/Report: White Blood Count 8.9 4.8-10.8 X10*3/uL [...] INR Reviewed date:10/26/2022 03:42:58 PM Interpretation: Performing Lab:[address] [id number] Notes/Report: Prothrombin Time 11.4 11.1-13.3 [employer] [...] Panel Reviewed date:10/26/2022 03:43:11 PM Interpretation: Performing Lab:[address] [id number] Notes/Report: Bilirubin Total 0.7 0.0-1.0 mg/dL Bilirubin Direct 0.2 0.0-0.5 mg/dL Aspartate Amino Transferase 35 5-37 U/L Alanine Aminotransferase 42 0-40 U/L Total Protein 7.3 6.5-8.0 g/dL Albumin Level 4.2 3.5-5.0 g/dL Alkaline Phosphatase 94 39-117 U/L Pathology Reviewed date:11/18/2022 08:50:20 AM Interpretation: Performing Lab:[address] [phone] Notes/Report: REASON FOR REFERRAL No Information MEDICATIONS [...] directed Orally O nce a day Active Mobile 3 1000 MG 1 capsule Orally Onc [...] Problem Colon cancer screening (Z12.11) Active confirmed 242817451 Problem Rectal bleeding (K62.5) Active confirmed 34011046 Problem Left lower quadrant pain (R10.32) Active confirmed 067433473 Problem Other cirrhosis of liver (K74.69) Active confirmed Problem Chronic hepatitis C without hepatic coma (B18.2) Active confirmed 851294854 Problem Liver mass (R16.0) Active confirmed 560590980 Problem 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) Active confirmed 4881640939198762 Problem Abnormal ultrasound of liver (R93.2) Active confirmed 36705213808004074 Problem Abnormal MRI, liver (R93.2) Active confirmed 269582385 Problem Focal nodular hyperplasia of liver (K76.89) Active confirmed 832069918 Problem Elevated liver function tests (R94.5) Active confirmed 572404928 VITAL SIGNS Temperature 97.5 degrees Fahrenheit 12/02/2022 Blood pressure diastolic 00 mm Hg 12/02/2022 Height 73.5 in 12/02/2022 Blood pressure systolic 000 mm Hg 12/02/2022 Weight 238 lb 6 oz lbs 12/02/2022 BMI 31.02 kg/m2 12/02/2022 Encounters Encounter Location Date Provider Diagnosis [facility] [address] [place] [id number] 11/11/2022 Power Barrera Jr Cedeno's esophagus with dysplasia K22.719 [facility] [address] [place] [phone] 09/29/2022 Kenny Funez [facility] [address] [place] [phone] 12/02/2022 Power Barrera Jr Cedeno's esophagus with dysplasia K22.719 [facility] [address] [place] [phone] 10/26/2022 Power Barrera Jr [facility] [address] [place] [phone] 11/18/2022 Power Barrera Jr ASSESSMENTS Encounter Date Diagnosis Assessment Notes Treatment Notes Treatment Clinical Notes 11/11/2022 Cedneo's esophagus with dysplasia (ICD-10 - K22.719) 12/02/2022 [...] Provider Name:Power hall , 12/01/2023 10:00:00 AM, [address] [place] [address], [address], [place], [address], Insurance Providers Payer Name Payer Address Payer Phone Subscriber Number Group Number Insured Name Patient Relationship to Insured Coverage Start Date Coverage End Date [place] [address] [place] [address] [id number] KAHLIL SIM Self - patient is the insured [facility]ICAID [facility] [address] [place] [address] [id number] KAHLIL SIM Self - patient is the insured MEDICAL (GENERAL) HISTORY Medical History History ICD Code Colon polyps, colonoscopy 04/13, multiple adenomas, three-year followup hepatitis C, F4 fibrosis, status post Pastrana rvoni x12 weeks with SVR hypertension depression back pain elevated cholesterol coronary artery disease, [place] 12/2017, ross nt placement leg numbness. anemia [...]
[2023-09-29 11:48] LABS: MANUAL DIFF FLAG NO
[2023-09-29 11:50] LABS: Basophils Absolute Auto 0.1 X10*3/uL (0.0-0.2); Basophils Percent Auto 0.6 % (0-2); Eosinophils Absolute Auto 0.1 X10*3/uL (0.0-0.4); Hematocrit 36.1 % (42.0-52.0); Hemoglobin 12.1 g/dl (14.0-18.0); Imm Gran Abs Auto 0.07 X10*3/uL (0.00-0.03); Imm Gran Pct Auto 0.6 % (0.0-0.4); Lymphocytes Absolute Auto 1.1 X10*3/uL (1.2-4.9); Lymphocytes Percent Auto 9.2 % (20-40); Mean Corpuscular HGB Conc 33.5 g/dl (31.0-36.0); Mean Corpuscular Hemoglobin 30.3 pg (27.0-33.0); Mean Corpuscular Volume 90.3 fL (80.0-98.0); Monocytes Absolute Auto 1.3 X10*3/uL (0.1-1.2); Monocytes Percent Auto 10.4 % (2-11); Neutrophils Absolute Auto 9.7 x10*3/uL (2.0-8.3); Neutrophils Percent Auto 78.2 % (45-73); Platelet Count 198 X10*3/uL (160-400); Red Cell Distribution Width 14.2 % (11.0-16.0); White Blood Count 12.4 X10*3/uL (4.8-10.8)
[2023-09-29 12:14] LABS: Alanine Aminotransferase 20 U/L (0-40); Albumin Level 4.3 g/dL (3.5-5.0); Alkaline Phosphatase 100 U/L (39-117); Anion Gap 15 (12-20); Aspartate Amino Transferase 23 U/L (5-37); Bilirubin Direct 0.1 mg/dL (0.0-0.5); Bilirubin Total 0.5 mg/dL (0.0-1.0); Blood Urea Nitrogen 23 mg/dL (9-16); C Reactive Protein 1.36 mg/dL (< or = 0.50); Calcium 10.1 mg/dL (8.4-10.2); Carbon Dioxide 19 mmol/L (22-29); Chloride 105 mmol/L (96-108); Creatinine Clr Calc Pharmacy 65.7; Estimated Glomerular Filt Rate 54; Glucose Random 123 mg/dL (60-115); Potassium 5.1 mmol/L (3.3-5.1); Sodium 134 mmol/L (135-145); Uric Acid 7.9 mg/dL (3.4-7.0)
[2023-09-29 12:32] LABS: Erythrocyte Sedimentation Rate 34 MM/HR (0-15)
[2023-09-29] MEDS: methylPREDNISolone Sod Succ 125 MG/2 ML VIAL 60 MG IM (13:08)
[2023-09-29 13:11] VITALS: BP 140/88; PULSE 88; RESP 18; TEMP 37; O2SAT 99
== END 2023-09-29 13:12 | disposition home or self-care (01) ==
PROVIDERS: Physician Assistant Medical; Emergency Provider Emergency Medicine; PCP Internal Medicine
DX: M10.031 Idiopathic gout, right wrist (principal); M25.531 Pain in right wrist; R11.2 Nausea with vomiting, unspecified; I25.10 Atherosclerotic heart disease of native coronary artery without angina pectoris; Z79.899 Other long term (current) drug therapy
CPT/HCPCS: 36415; 73110; 80048; 80076; 84550; 85025; 85652; 86140; 96372; 99282; 99284; J2919

== ENCOUNTER 2023-09-30 15:17 | Outpatient (AMB) | payer MEDICARE, MEDICAID, SELFPAY ==
--- NOTE | 2023-09-30 15:23 | MHC.OFFVIS ---
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: No Allergies No Known Allergies [No Known Allergies*] Allergy (Verified 09/29/23 11:13) Medication List - Last Reconciled 09/30/23 by Danilo Em MD acetaminophen 650 mg PO DAILY PRN albuterol sulfate 90 mcg/actuation 2 puffs inhalation QID PRN amlodipine 10 mg PO DAILY apixaban (Eliquis) 5 mg PO BID aspirin 81 mg PO DAILY atorvastatin 40 mg PO DAILY cholecalciferol (vitamin D3) (Vitamin D3) 25 mcg PO DAILY cyanocobalamin (vitamin B-12) (Vitamin B-12) 500 mcg PO DAILY famotidine 40 mg PO BID jgfldcjbyyb-djehcwlar-pqyfhxvv 200-62.5-25 mcg (Trelegy Ellipta) 1 ea inhalation DAILY gabapentin 600 mg PO BID ipratropium-albuterol 0.5 mg-3 mg(2.5 mg base)/3 mL 3 mL inhalation QID PRN magnesium oxide 400 mg PO BIDWM omega-3 acid ethyl esters 2 caps PO BID prednisone 20 mg PO DAILY 12 days HPI Comments Details: Shane comes for follow-up. Recently admitted with acute kidney injury with marked hyperkalemia leading to bradycardia including junctional bradycardia. He had aggressive treatment for hyperkalemia as well as JOVITA and with low blood pressure most of his medications were held. His kidney function is gradually improved however he converted back to atrial flutter but with adequate rate control. Follow-up Holter monitor after discharge has showed predominantly atrial flutter with controlled ventricular response despite medications. Currently on Xarelto for oral anticoagulation. Renal function has improved significantly. Unfortunately developed attack of gout for which she got steroid injection. He comes and says that he continues to have symptoms of fatigue and exertional shortness of breath remains in atrial flutter. He also complains of exertional chest discomfort. He denies any lightheadedness, syncope. Denies any clear orthopnea, PND, leg edema. He comes in office and was noted to be in recurrent atrial flutter with controlled ventricular rate. He says since the hospital discharge he is trying to reduce his alcohol intake significantly although he still has couple of drinks before dinner COUNT INCLUDES THE [facility] Medical History (Updated 10/01/23 @ 09:16 by Danilo Em MD) CAD (coronary artery disease) Atrial fibrillation Junctional bradycardia COVID-19 Blindness of left eye History of eye prosthesis Thyroid disease GERD (gastroesophageal reflux disease) Numbness On beta patrick at home On anticoagulant therapy Murmur PVD (peripheral vascular disease) Myocardial infarction Alcohol dependence Post laminectomy syndrome Asthma Renal stones COPD (chronic obstructive pulmonary disease) Anemia Hepatitis C Hyperlipidemia HTN (hypertension) SVT (supraventricular tachycardia) Surgical History Hx of eye surgery History of esophagogastroduodenoscopy (EGD) H/O colonoscopy S/P lobectomy of lung (~05/2021) Stented coronary artery Hx of thyroidectomy History of back surgery Hx of cardiac cath Family History Father Cancer Mother CVD (cardiovascular disease) Social History Household Members: None Housing: Apartment Are you a primary laboratory animal care veterinarian to a significant other at home: No Do you presently have visiting nurse or other home services: No Alcohol intake: current Alcohol intake frequency: 3 or more drinks per day Alcohol type: hard liquor Patient Tobacco Use Status: Former Tobacco user Tobacco use type: Cigarette Cigarette Packs Per Day: 1 Cigarettes Per Day: 20.0 Years Smoked: 40 Second Hand Smoke Exposure: No Substance Use Type: Marijuana Advance Directives Date on File: 09/09/23 service: No Review of Systems Const Denies chills, Denies fatigue, Denies fever(s), Denies frequent falls, Denies weakness, Denies weight gain and Denies weight loss ENT Denies dizziness Card Denies chest pain, Denies leg edema, Denies lightheadedness, Denies palpitations, Denies dyspnea, Denies dyspnea on exertion, Denies orthopnea and Denies other (loss of consciousness) Resp Denies cough, Denies dyspnea and Denies dyspnea on exertion GI Denies hematochezia and Denies change in stool character Musc Denies abnormal gait, Denies muscle weakness, Denies numbness, Denies radiating pain into limb and Denies tingling Neuro Denies abnormal gait, Denies dizziness, Denies frequent falls, Denies numbness, Denies tingling and Denies weakness Endo Denies fatigue and Denies palpitations Physical Exam Vital Signs: Last Vital Signs Pulse 75 09/30/23 15:24 BP 120/78 09/30/23 15:24 BMI result Body Mass Index 32.0 Const General: cooperative, comfortable, no acute distress, alert and awake Nutritional Appearance: overweight Orientation/consciousness: patient oriented x3 Limitations: no limitations Neck Neck: Yes trachea midline and Yes no JVD Resp Effort & Inspection: normal respiratory effort Auscultation: clear to auscultation bilaterally Cardio Jugular venous distension: no JVD Rhythm: abnormal rhythm irregularly irregular Heart sounds: S1 normal heart sound present, S2 normal heart sound present, no click, no gallops, Murmur heart sound present systolic mid and no rubs GI Auscultation: normal bowel sounds Skin General skin exam: ecchymosis Neuro General: patient oriented x3 and no focal motor deficits Extrem General: Yes no clubbing, cyanosis or edema Office Procedures EKG Details: EKG shows atrial flutter with variable block at 75 beats per minute [id number], Complete Assessment & Plan Assessment & Plan (1) Atrial flutter: Code(s): I48.92 - Unspecified atrial flutter Category: Medical Plan: Assessment symptomatic persistent atrial flutter with adequate rate control and despite rate control having symptoms exertional fatigue and shortness of breath. Has failed rhythm control with multiple different antiarrhythmic including Tikosyn as well as Multaq. Given his underlying pulmonary issues and now renal issues would avoid amiodarone as well as sotalol use. Also given his CAD will avoid using class 1 C agent. Discussed with him about possibility of ablation. He is willing to pursue that option. Will refer him to Dr. Finch for consideration atrial flutter ablation. Continue full oral anticoagulation with Xarelto. (2) Aortic stenosis: Code(s): I35.0 - Nonrheumatic aortic (valve) stenosis Category: Medical Plan: Aortic stenosis which still appears to be clinically moderate. Will continue monitor by echocardiogram. Cardinal symptoms associated with aortic stenosis were discussed. Continue full oral anticoagulation. Continue high-intensity statin therapy. Continue aggressive vascular risk factor modification. (3) CAD (coronary artery disease): Code(s): I25.10 - Atherosclerotic heart disease of ewiiaapaayp coronary artery without angina pectoris Category: Medical Plan: CAD with prior RCA stenting with currently having still symptoms of exertional chest pain which could be related to atrial flutter. At this point time will pursue management of atrial flutter 1st. Continue current amlodipine therapy. If he persists with significant symptoms of exertional chest pain will pursue cardiac catheterization in the future after rhythm is controlled. This was discussed with him. Continue high-intensity statin therapy. Will follow up in the clinic in 3 months time, sooner p.r.n.. Thank you for allowing me to partake in his care Coding Level of Care Code Est Pt Level 4 (58332) Diagnoses Atrial flutter I48.92 Aortic stenosis I35.0 CAD (coronary artery disease) I25.10 CPT Codes EKG - CPT: 40042-[id number], Complete ([id number])
[2023-09-30 15:24] VITALS: BP 120/78; PULSE 75; BMI 32.0
== END 2023-09-30 15:52 | disposition home or self-care (01) ==
PROVIDERS: PCP Internal Medicine; Visit Provider Internal Medicine Cardiovascular Disease
DX: I48.92 Unspecified atrial flutter (principal); I35.0 Nonrheumatic aortic (valve) stenosis; I25.10 Atherosclerotic heart disease of native coronary artery without angina pectoris
CPT/HCPCS: 93010; 99214

== ENCOUNTER 2023-09-30 15:17 | Outpatient (REF) | payer MEDICARE, MEDICAID, SELFPAY ==
[2023-09-30 17:58] LABS: Anion Gap 16 (12-20); Blood Urea Nitrogen 26 mg/dL (9-16); Calcium 10.6 mg/dL (8.4-10.2); Carbon Dioxide 19 mmol/L (22-29); Chloride 103 mmol/L (96-108); Estimated Glomerular Filt Rate 52; Glucose Random 126 mg/dL (60-115); Potassium 4.9 mmol/L (3.3-5.1); Sodium 133 mmol/L (135-145)
== END 2023-09-30 15:18 | disposition home or self-care (01) ==
LOC: HO.LAB 15:17
PROVIDERS: Student in an Organized Health Care Education/Training Program; PCP Internal Medicine; Visit Provider Internal Medicine Cardiovascular Disease
DX: I48.92 Unspecified atrial flutter (principal); I35.0 Nonrheumatic aortic (valve) stenosis; I25.10 Atherosclerotic heart disease of native coronary artery without angina pectoris; I48.91 Unspecified atrial fibrillation; E87.5 Hyperkalemia; N17.9 Acute kidney failure, unspecified
CPT/HCPCS: 36415; 80048; 93005; 99212

== ENCOUNTER 2023-10-08 10:01 | Emergency (ER) | payer MEDICARE, MEDICAID, SELFPAY ==
[2023-10-08 10:04] VITALS: BP 161/102; PULSE 90; RESP 19; TEMP 36.6; O2SAT 98; BMI 31.9
--- NOTE | 2023-10-08 10:18 | ED_ITS ---
HPI - General Adult General Chief complaint: General Medical Stated complaint: L Elbow Lac Injury 10/07/23 Time Seen by Provider: 10/08/23 10:17 Source: patient Mode of arrival: ambulatory Limitations: no limitations History of Present Illness ED Provider: Jasmin Neves PA-C HPI narrative: Patient is a 68 year old assigned male at with a history of CAD, atrial flutter on Eliquis, HTN and HLD presenting to the emergency department today with a left elbow laceration. Patient states that yesterday he caught the edge of a metal storm door and cut his left elbow. Patient states that it has continued to bleed. Patient states that he is up to date on his tetanus status and there was no glass in the door. Patient denies any dizziness, lightheadedness, abdominal pain, nausea, vomiting, fever, chills, blurry vision, double vision, loss of vision, chest pain, difficulty breathing, shortness of breath, back pain, night sweats, pain with urination, increased urinary frequency, increased urinary urgency, blood in his urine or stool, syncope or a near syncopal episode, bowel incontinence, bladder incontinence, or any other complaints at this time. Onset (ago): day(s) (1) Location: left and upper extremity Radiation: non-radiation Severity: mild Severity scale (1-10): 3 Quality: aching and dull Pain Consistency: constant Relieving factors: none Exacerbating factors: none Associated symptoms: denies other symptoms Treatments prior to arrival: other (bandages) Related Data Home Medications ?Medication ?Instructions ?Recorded ?Confirmed famotidine 40 mg tablet 40 mg PO BID 04/12/20 09/30/23 gabapentin 600 mg tablet 600 mg PO BID 04/12/20 09/30/23 albuterol sulfate 90 mcg/actuation 2 puff inhalation QID PRN 10/26/22 09/30/23 aerosol inhaler Shortness Of Breath Or Wheezing acetaminophen 325 mg tablet 650 mg PO DAILY PRN Pain 05/19/23 09/30/23 aspirin 81 mg tablet,delayed 81 mg PO DAILY 05/19/23 09/30/23 release cholecalciferol (vitamin D3) 25 25 mcg PO DAILY 05/19/23 09/30/23 mcg (1,000 unit) capsule (Vitamin D3) cyanocobalamin (vitamin B-12) 500 500 mcg PO DAILY 05/19/23 09/14/23 mcg tablet (Vitamin B-12) fluticasone fur. 200 mcg-umeclid 1 ea inhalation DAILY 05/19/23 09/30/23 62.5 mcg-vilant 25 mcg inhalat.powder (Trelegy Ellipta) ipratropium 0.5 mg-albuterol 3 mg 3 ml inhalation QID PRN Shortness 05/19/23 09/30/23 (2.5 mg base)/3 mL nebulization Of Breath Or Wheezing soln atorvastatin 40 mg tablet 40 mg PO DAILY 09/14/23 09/30/23 magnesium oxide 400 mg (241.3 mg 400 mg PO BIDWM 09/14/23 09/30/23 magnesium) tablet Previous Rx's ?Medication ?Instructions ?Recorded omega-3 acid ethyl esters 1 gram 2 cap PO BID #90 caps 01/27/21 capsule amlodipine 10 mg tablet 10 mg PO DAILY #90 tabs 09/09/22 apixaban 5 mg tablet (Eliquis) 5 mg PO BID #60 tabs 05/21/23 prednisone 20 mg tablet 20 mg PO DAILY 12 days #26 tabs 09/29/23 cephalexin 500 mg capsule 500 mg PO Q6H 7 days #28 caps 10/08/23 Allergies Allergy/AdvReac Type Severity Reaction Status Date / Time No Known Allergies Allergy Verified 10/08/23 10:06 [No Known Allergies*] Review of Systems Constitutional: Constitutional: Reports no additional constitutional complaints, Denies chills, Denies fever(s) and Denies night sweats Eyes: Eyes: Reports no additional eye complaints, Denies blurry vision, Denies change in vision, Denies diplopia, Denies eye discharge, Denies loss of vision and Denies eye pain ENT: Denies dizziness Cardiovascular: Cardiovascular: Reports no additional cardiovascular complaints, Denies chest pain, Denies lightheadedness, Denies Loss of Consciousness and Denies dyspnea Respiratory: Respiratory: Reports no additional respiratory complaints and Denies dyspnea Gastrointestinal: Gastrointestinal: Reports no additional gastrointestinal complaints, Denies abdominal pain, Denies melena, Denies hematochezia, Denies change in bowel habits and Denies change in stool character Genitourinary: Genitourinary: Reports no additional male genitourinary complaints, Denies hematuria, Denies oliguria, Denies difficulty urinating, Denies dysuria, Denies urinary frequency, Denies urinary hesitancy, Denies urinary incontinence and Denies urinary urgency Musculoskeletal: Musculoskeletal: Reports no additional musculoskeletal complaints, Denies numbness and Denies tingling Comments: left elbow skin tear Neurologic: Denies dizziness, Denies loss of vision, Denies numbness and Denies tingling Psychiatric: Psychiatric: Reports no additional psychiatric complaints Endocrine: Endocrine: Reports no additional endocrine complaints Hematologic/Lymphatic: Hematologic/Lymphatic: Reports no additional hematologic/lymphatic complaints Allergic/Immunologic: Allergic/Immunologic: Reports no additional allergic/immunologic complaints [facility] Past Medical History Attestation statement: The following information was validated with the patient. Source: old records reviewed and nursing notes reviewed Medical History CAD (coronary artery disease) Atrial fibrillation Junctional bradycardia COVID-19 Blindness of left eye History of eye prosthesis Thyroid disease GERD (gastroesophageal reflux disease) Numbness On beta patrick at home On anticoagulant therapy Murmur PVD (peripheral vascular disease) Myocardial infarction Alcohol dependence Post laminectomy syndrome Asthma Renal stones COPD (chronic obstructive pulmonary disease) Anemia Hepatitis C Hyperlipidemia HTN (hypertension) SVT (supraventricular tachycardia) Surgical History Hx of eye surgery History of esophagogastroduodenoscopy (EGD) H/O colonoscopy S/P lobectomy of lung (~05/2021) Stented coronary artery Hx of thyroidectomy History of back surgery Hx of cardiac cath Family History Family History Father Cancer Mother CVD (cardiovascular disease) Social History Social History Household Members: None Housing: Apartment Are you a primary pharmacy care coordinator to a significant other at home: No Do you presently have visiting nurse or other home services: No Alcohol intake: current Alcohol intake frequency: 3 or more drinks per day Alcohol type: hard liquor Patient Tobacco Use Status: Former Tobacco user Tobacco use type: Cigarette Cigarette Packs Per Day: 1 Cigarettes Per Day: 20.0 Years Smoked: 40 Second Hand Smoke Exposure: No Substance Use Type: Marijuana Advance Directives: Yes Advance Directives on File: Yes Advance Directives Date on File: 09/09/23 service: No Physical Exam ED Vital Signs: Vital Signs - 24 hr 10/08/23 10:04 Temperature 98 F Pulse Rate 90 Respiratory Rate 19 Blood Pressure 161/102 H Pulse Oximetry 98 Oxygen Delivery Method Room Air BMI result Body Mass Index 31.9 Const General: cooperative, no acute distress, alert and awake Nutritional Appearance: well nourished Orientation/consciousness: patient oriented x3 Limitations: no limitations HENMT Head: Yes normal to inspection and Yes atraumatic Ears: hearing grossly normal bilaterally and external ears normal General nose exam: Normal external nose present, no nasal discharge noted and no epistaxis Face and sinus: Yes normal facial exam, No abrasion and No laceration Mouth: Normal oral and palatal mucosa present, no drooling and no muffled voice Eyes General: appearance normal, both eyes and all related structures Periorbital: periorbital findings normal Eyelids: Yes eyelids normal Conjunctivae: conjunctivae normal Pupils: Equal, round and reactive pupils present EOM: EOMs intact bilaterally Neck Neck: Yes normal visual inspection, Yes full ROM and Yes no lymphadenopathy Chest Chest palpation & inspection: normal inspection of the chest Resp Effort & Inspection: normal respiratory effort and able to speak in complete sentences GI Inspection: Yes normal to inspection Neuro General: patient oriented x3 and moves all extremities Cranial nerves: Yes Equal, round and reactive pupils present Cognition (Neuro): normal cognition Extrem Other: small skin tear to the left elbow with oozing blood General: Yes full ROM and Yes capillary refill normal Psych Appearance: grossly normal Mental Status: mental status grossly normal Affect: normal affect Attitude: cooperative Thought process: Normal thought process present Thought content: Normal thought content present Insight: Good insight present (Psych) Procedures Laceration Laceration 1: Site: upper extremity Side (If applicable): left Size (cm): 1 Description: irregular Depth: simple, single layer Pre-repair: wound explored, irrigated extensively and deep structures intact Skin layer closed with: other (dermabond) Size (cm): other (dermabond) Technique: other (dermabond) Medical Decision Making Medical Decision Making MDM Narrative: Patient is a 68 year old assigned male at with a history of CAD, atrial flutter on Eliquis, HTN and HLD presenting to the emergency department today with a left elbow laceration. Patient's physical exam was as noted in the physical exam portion of this note. I explained my physical exam findings to the patient. I answered all questions asked by the patient. Patient's skin tear was repaired with dermabond and a pressure dressing was applied over top of it. Patient's PMS was intact prior to and after dressing placement and dermabond repair. I stressed the importance of the patient taking [his/her/their] medication as directed (either prescribed or as the over the counter packaging recommends). I stressed the importance of the patient following up with [his/her/their] primary care provider. I stressed the importance of the patient returning to the emergency department immediately if [his/her/their] symptoms were to worsen or if [he/she/they] were to develop any dizziness, shortness of breath, difficulty breathing, chest pain, blurry vision, loss of vision, nausea, vomiting, abdominal pain, fever, chills, back pain, or any other complaints. Patient [and the patient's] verbalized agreement and understanding with this t reatment plan and [discharge/transfer/admission]. Differential Diagnosis Differential Diagnoses: The differential diagnosis associated with the presentation includes Skin tear Laceration Admission/Observation Consideration of admission/observation: Escalation of care including admission/observation considered Patient would have been admitted to the hospital had his work up had any findings where hospital admission was appropriate and his clinical presentation warranted hospital admission. Prescription Management I considered prescription management with: Antibiotic (patient prescribed a p rophylactic antibiotic given mechanism of injury and comorbidities) Chronic Conditions Patient?s care impacted by: Hypertension Discharge Plan Discharge Clinical Impression: Skin tear of elbow without complication Patient Disposition: Home, Self-Care Instructions: Laceration Without Closure (ED) Additional Instructions: Do NOT get the affected area for at LEAST 7 days. Keep the area elevated. Follow up with your primary care provider. Return to the emergency department immediately if your symptoms worsen or if you develop any dizziness, shortness of breath, difficulty breathing, chest pain, blurry vision, loss of vision, nausea, vomiting, abdominal pain, fever, chills, back pain, or any other complaints. Prescriptions: New cephalexin 500 mg capsule 500 mg PO Q6H 7 Days Qty: 28 0RF No Action omega-3 acid ethyl esters 1 gram capsule 2 cap PO BID Qty: 90 3RF amlodipine 10 mg tablet 10 mg PO DAILY Qty: 90 3RF Eliquis 5 mg tablet 5 mg PO BID Qty: 60 5RF Hold Instructions: Resume on 06/06/23. hold for 48 hours prednisone 20 mg tablet 20 mg PO DAILY 12 Days Qty: 26 0RF Rx Instructions: Take 3 tablets for 5 days THEN; Take 2 tablets for 4 days THEN; Take 1 tablet for 3 days aspirin 81 mg Tablet,Delayed Release (Dr/Ec) 81 mg PO DAILY cyanocobalamin (vitamin B-12) [Vitamin B-12] 500 mcg Tablet 500 mcg PO DAILY cholecalciferol (vitamin D3) [Vitamin D3] 25 mcg (1,000 unit) Capsule 25 mcg PO DAILY acetaminophen 325 mg Tablet 650 mg PO DAILY PRN (Reason: Pain) Patient Comments: TOOK 650MG [id number] Trelegy Ellipta 200-62.5-25 mcg blister with device 1 ea INHALATION DAILY ipratropium-albuterol 0.5 mg-3 mg(2.5 mg base)/3 mL Solution For Nebulization 3 ml INHALATION QID PRN (Reason: Shortness Of Breath Or Wheezing) atorvastatin 40 mg tablet 40 mg PO DAILY magnesium oxide 400 mg (241.3 mg magnesium) tablet 400 mg PO BIDWM gabapentin 600 mg tablet 600 mg PO BID famotidine 40 mg tablet 40 mg PO BID albuterol sulfate 90 mcg/actuation HFA aerosol inhaler 2 puff inhalation QID PRN (Reason: Shortness Of Breath Or Wheezing) Referrals: Kojo Fermin MD [Primary Care Provider] - Print Language: [place]
== END 2023-10-08 11:40 | disposition home or self-care (01) ==
PROVIDERS: Emergency Provider Student in an Organized Health Care Education/Training Program; PCP Internal Medicine
DX: S51.012A Laceration without foreign body of left elbow, initial encounter (principal); W22.8XXA Striking against or struck by other objects, initial encounter; Y93.9 Activity, unspecified; Y92.9 Unspecified place or not applicable; Y99.9 Unspecified external cause status
CPT/HCPCS: 12001; 99281; 99284

== ENCOUNTER 2023-10-29 09:42 | Outpatient (RCR) | payer MEDICARE, MEDICAID, SELFPAY | END 2023-11-17 10:37 | disposition home or self-care (01) | LOC: HO.WCC 09:42 | PROVIDERS: PCP Internal Medicine; Visit Provider Physician Assistant | DX: S61.412A Laceration without foreign body of left hand, initial encounter (principal); G62.1 Alcoholic polyneuropathy; I48.91 Unspecified atrial fibrillation; I11.0 Hypertensive heart disease with heart failure; I50.9 Heart failure, unspecified; I25.2 Old myocardial infarction; J44.89 Other specified chronic obstructive pulmonary disease; X58.XXXA Exposure to other specified factors, initial encounter; Y93.9 Activity, unspecified; Y92.9 Unspecified place or not applicable; Y99.9 Unspecified external cause status; Z87.891 Personal history of nicotine dependence; Z85.118 Personal history of other malignant neoplasm of bronchus and lung; Z79.01 Long term (current) use of anticoagulants | CPT/HCPCS: 99212; 99213 ==

== ENCOUNTER 2023-11-05 08:46 | Emergency (ER) | payer MEDICARE, MEDICAID, SELFPAY ==
--- NOTE | ~2023-11-05 | XR_ITS ---
EXAMINATION: XR RIGHT WRIST XR RIGHT ELBOW XR CHEST CLINICAL INFORMATION: Right wrist pain. Right elbow pain. Supraclavicular swelling. COMPARISON: 09/29/2023 and 09/14/2023 TECHNIQUE: PA and lateral views of the chest. AP, lateral and oblique views of the right elbow. PA, lateral, oblique and navicular views of the right wrist. FINDINGS: Chest: The lungs are well expanded. No focal consolidation. No pleural effusion. Cardiac silhouette is unchanged. Right wrist: Decreased bone mineralization. Vascular calcifications are present. There are degenerative changes of the triscaphe joint and first CMC joint. No displaced fracture or dislocation. There is soft tissue swelling and amorphous mineralization about the wrist including the triangular fibrocartilage. Right elbow: Alignment is anatomic. There is spurring of the lateral condyle. There is joint space narrowing and hypertrophic change involving the humeral ulnar joint. Spurring of the olecranon. There is a large posterior soft tissue swelling and edema. Small to moderate elbow joint effusion. XR/XR wrist RT min 3V IMPRESSION: Large posterior soft tissue swelling and edema of the right elbow with small to moderate elbow joint effusion. No displaced fracture is seen however an occult fracture cannot be excluded. Degenerative changes of the right wrist. No acute cardiopulmonary process.
--- NOTE | ~2023-11-05 | XR_ITS ---
EXAMINATION: XR RIGHT WRIST XR RIGHT ELBOW XR CHEST CLINICAL INFORMATION: Right wrist pain. Right elbow pain. Supraclavicular swelling. COMPARISON: 09/29/2023 and 09/14/2023 TECHNIQUE: PA and lateral views of the chest. AP, lateral and oblique views of the right elbow. PA, lateral, oblique and navicular views of the right wrist. FINDINGS: Chest: The lungs are well expanded. No focal consolidation. No pleural effusion. Cardiac silhouette is unchanged. Right wrist: Decreased bone mineralization. Vascular calcifications are present. There are degenerative changes of the triscaphe joint and first CMC joint. No displaced fracture or dislocation. There is soft tissue swelling and amorphous mineralization about the wrist including the triangular fibrocartilage. Right elbow: Alignment is anatomic. There is spurring of the lateral condyle. There is joint space narrowing and hypertrophic change involving the humeral ulnar joint. Spurring of the olecranon. There is a large posterior soft tissue swelling and edema. Small to moderate elbow joint effusion. XR/XR elbow RT 2V IMPRESSION: Large posterior soft tissue swelling and edema of the right elbow with small to moderate elbow joint effusion. No displaced fracture is seen however an occult fracture cannot be excluded. Degenerative changes of the right wrist. No acute cardiopulmonary process.
--- NOTE | ~2023-11-05 | XR_ITS ---
EXAMINATION: XR RIGHT WRIST XR RIGHT ELBOW XR CHEST CLINICAL INFORMATION: Right wrist pain. Right elbow pain. Supraclavicular swelling. COMPARISON: 09/29/2023 and 09/14/2023 TECHNIQUE: PA and lateral views of the chest. AP, lateral and oblique views of the right elbow. PA, lateral, oblique and navicular views of the right wrist. FINDINGS: Chest: The lungs are well expanded. No focal consolidation. No pleural effusion. Cardiac silhouette is unchanged. Right wrist: Decreased bone mineralization. Vascular calcifications are present. There are degenerative changes of the triscaphe joint and first CMC joint. No displaced fracture or dislocation. There is soft tissue swelling and amorphous mineralization about the wrist including the triangular fibrocartilage. Right elbow: Alignment is anatomic. There is spurring of the lateral condyle. There is joint space narrowing and hypertrophic change involving the humeral ulnar joint. Spurring of the olecranon. There is a large posterior soft tissue swelling and edema. Small to moderate elbow joint effusion. XR/XR chest 2V IMPRESSION: Large posterior soft tissue swelling and edema of the right elbow with small to moderate elbow joint effusion. No displaced fracture is seen however an occult fracture cannot be excluded. Degenerative changes of the right wrist. No acute cardiopulmonary process.
[2023-11-05 08:52] VITALS: BP 170/82; PULSE 99; RESP 16; TEMP 36.6; O2SAT 99; BMI 31.9
--- NOTE | 2023-11-05 09:01 | ED_ITS ---
HPI - Extremity Problem General Chief complaint: Extremity Injury, Upper Stated complaint: arm pain Time Seen by Provider: 11/05/23 09:01 Source: patient and RN notes reviewed Mode of arrival: ambulatory Limitations: no limitations History of Present Illness ED Provider: Svitlana Boggs PA-C HPI Narrative: 68 year old male with a history of CAD, atrial flutter on Eliquis, HTN, gout, HLD who presents emergency department with complaints of right arm pain since yesterday morning. States that the pain woke him up from sleep. He states that the pain is in his wrist, elbow, and shoulder. He states that he has had difficulty with movement of his right wrist and right elbow. He has been taking aspirin which has provided him without any relief. He denies any chest pain, shortness breath, difficulty breathing, nausea, vomiting or diarrhea. Patient reports that he has a history of gout and states that his symptoms feel similar however feel more severe than previous episodes. He states that when he gets his gout it is within his wrist. No other complaints or concerns at this time. MD Complaint: extremity pain and extremity swelling Onset (ago): day(s) Pain Consistency: constant Location: right Quality: aching Radiation: proximal Relieving factors: immobilization Exacerbating factors: range of motion and palpation Associated symptoms: denies other symptoms Related Data Home Medications ?Medication ?Instructions ?Recorded ?Confirmed famotidine 40 mg tablet 40 mg PO BID 04/12/20 09/30/23 gabapentin 600 mg tablet 600 mg PO BID 04/12/20 09/30/23 albuterol sulfate 90 mcg/actuation 2 puff inhalation QID PRN 10/26/22 09/30/23 aerosol inhaler Shortness Of Breath Or Wheezing acetaminophen 325 mg tablet 650 mg PO DAILY PRN Pain 05/19/23 09/30/23 aspirin 81 mg tablet,delayed 81 mg PO DAILY 05/19/23 09/30/23 release cholecalciferol (vitamin D3) 25 25 mcg PO DAILY 05/19/23 09/30/23 mcg (1,000 unit) capsule (Vitamin D3) cyanocobalamin (vitamin B-12) 500 500 mcg PO DAILY 05/19/23 09/14/23 mcg tablet (Vitamin B-12) fluticasone fur. 200 mcg-umeclid 1 ea inhalation DAILY 05/19/23 09/30/23 62.5 mcg-vilant 25 mcg inhalat.powder (Trelegy Ellipta) ipratropium 0.5 mg-albuterol 3 mg 3 ml inhalation QID PRN Shortness 05/19/23 09/30/23 (2.5 mg base)/3 mL nebulization Of Breath Or Wheezing soln atorvastatin 40 mg tablet 40 mg PO DAILY 09/14/23 09/30/23 magnesium oxide 400 mg (241.3 mg 400 mg PO BIDWM 09/14/23 09/30/23 magnesium) tablet Previous Rx's ?Medication ?Instructions ?Recorded omega-3 acid ethyl esters 1 gram 2 cap PO BID #90 caps 01/27/21 capsule amlodipine 10 mg tablet 10 mg PO DAILY #90 tabs 09/09/22 apixaban 5 mg tablet (Eliquis) 5 mg PO BID #60 tabs 05/21/23 prednisone 20 mg tablet 20 mg PO DAILY 12 days #26 tabs 09/29/23 cephalexin 500 mg capsule 500 mg PO Q6H 7 days #28 caps 10/08/23 acetaminophen 325 mg capsule 650 mg (2 x 325 mg) PO Q6H PRN 11/05/23 pain #30 caps oxycodone 5 mg tablet 5 mg PO Q6H PRN severe pain (scale 11/05/23 score 7-10) #12 tabs prednisone 20 mg tablet 40 mg (2 x 20 mg) PO DAILY 5 days 11/05/23 #10 tabs Allergies Allergy/AdvReac Type Severity Reaction Status Date / Time No Known Allergies Allergy Verified 11/05/23 08:55 [No Known Allergies*] Review of Systems 2 Review of Systems: Yes all other systems are reviewed and are negative Constitutional: Constitutional: Reports as per [facility] Past Medical History Attestation statement: The following information was validated with the patient. Medical History CAD (coronary artery disease) Atrial fibrillation Junctional bradycardia COVID-19 Blindness of left eye History of eye prosthesis Thyroid disease GERD (gastroesophageal reflux disease) Numbness On beta patrick at home On anticoagulant therapy Murmur PVD (peripheral vascular disease) Myocardial infarction Alcohol dependence Post laminectomy syndrome Asthma Renal stones COPD (chronic obstructive pulmonary disease) Anemia Hepatitis C Hyperlipidemia HTN (hypertension) SVT (supraventricular tachycardia) Surgical History Hx of eye surgery History of esophagogastroduodenoscopy (EGD) H/O colonoscopy S/P lobectomy of lung (~05/2021) Stented coronary artery Hx of thyroidectomy History of back surgery Hx of cardiac cath Family History Family History Father Cancer Mother CVD (cardiovascular disease) Social History Social History Household Members: None Housing: Apartment Are you a primary healthcare administration intern to a significant other at home: No Do you presently have visiting nurse or other home services: No Alcohol intake: current Alcohol intake frequency: 3 or more drinks per day Alcohol type: hard liquor Patient Tobacco Use Status: Former Tobacco user Tobacco use type: Cigarette Cigarette Packs Per Day: 1 Cigarettes Per Day: 20.0 Years Smoked: 40 Second Hand Smoke Exposure: No Substance Use Type: Marijuana Advance Directives Date on File: 09/09/23 service: No Physical Exam 2 Vital Signs: Vital Signs: Last Vital Signs Temp 97.6 F 11/05/23 12:41 Pulse 92 11/05/23 12:41 Resp 18 11/05/23 12:41 BP 176/92 H 11/05/23 12:41 Pulse Ox 97 11/05/23 12:41 O2 Del Method Room Air 11/05/23 12:41 BMI result Body Mass Index 31.9 Const: General: cooperative, comfortable and no acute distress O rientation/consciousness: patient oriented x3 Limitations: no limitations HEENT: Head: Yes normal to inspection, Yes normocephalic and Yes atraumatic Ears: hearing grossly normal bilaterally General nose exam: Normal external nose present Face and sinus: Yes normal facial exam Mouth: Normal oral and palatal mucosa present, oropharynx normal and moist mucous membranes Throat: Yes posterior oropharynx normal Eyes: General: appearance normal, both eyes and all related structures E yelids: Yes eyelids normal Conjunctivae: conjunctivae normal Sclerae: s clerae normal Pupils: Equal, round and reactive pupils present EOM: EOMs intact bilaterally Neck: Neck: Yes normal visual inspection, Yes full ROM and Yes no lymphadenopathy Lymphatic: no lymphadenopathy noted Chest: Other: Prominence overlying the supraclavicular region, this is bilateral, no palpable masses noted, no overlying skin changes, warmth. Chest palpation & inspection: normal inspection of the chest Resp: Effort & Inspection: normal respiratory effort and able to speak in complete sentences Auscultation: clear to auscultation bilaterally, no crackles, no rales, no rhonchi and no wheezes Cardio: Rate: regular rate Rhythm: regular rhythm Heart sounds: S1 normal heart sound present and S2 normal heart sound present GI: Inspection: Yes normal to inspection Skin: General skin exam: no rashes or lesions noted Trauma: no lacerations or abrasions Wounds: no wounds Neuro: General: patient oriented x3 and moves all extremities Cranial nerves: Yes Equal, round and reactive pupils present Extrem: Other: Right wrist, with no obvious bony deformit. Mild erythema and edema noted to the dorsum of the wrist. Decreased ROM of the wrist, able to flex and extend at the wrist however with pain noted. Strong radial pulse. Right elbow with moderate edema, and warmth, no overlying erythema, full flexion-extension of the elbow. Full range of motion of the right shoulder. General: Yes normal to inspection Right upper extremity: normal to inspection Left upper extremity: normal to inspection Right lower extremity: normal to inspection Left lower extremity: normal to inspection Course Reevaluation(s) Reevaluation #1: EKG revealing atrial flutter, which he has a history of, currently being seen by Cardiology, he is rate controlled. He has no chest pain or shortness for breath. Uric acid elevated at 9.8, CRP 4.29. ESR elevated at 36. He has no leukocytosis. Presentation consistent with an acute gout flare-up, his symptoms have improved since receiving methyl prednisolone, patient discharged on pain medication, and course of steroids. He was given strict return precautions. He understands and agrees with plan. Patient stable for discharge. Medications Administered Discontinued Medications Generic Name Dose Route Start Last Admin Trade Name Freq PRN Reason Stop Dose Admin Methylprednisolone Sodium Succinate 40 mg 11/05/23 10:44 11/05/23 10:51 Methylprednisolone Sod Succ 40 Mg/Ml Vial IM 11/05/23 10:45 40 mg ONCE ONE Administration Morphine Sulfate 4 mg 11/05/23 09:45 11/05/23 09:55 Morphine Sulfate 4 Mg/Ml Cartridge IVPUSH 11/05/23 09:46 4 mg ONCE ONE Administration Protocol Medical Decision Making Medical Decision Making [facility] Narrative: 68 year old male with a history of CAD, atrial flutter on Eliquis, HTN, gout, HLD who presents emergency department with complaints of right arm pain since yesterday morning. On arrival, vital signs revealing patient is hypertensive at 170/82, all other vital signs within normal limits. He is alert and oriented x4, speaking in full sentences. Differential diagnoses include gout, septic arthritis, ACS, tendonitis. On examination, he has pain with moving his right wrist, does appear to be edematous, and warmth. Consistent with gout however given the severity, will obtain basic labs, x-ray, EKG. He does have mild prominence to his supraclavicular region, this is bilateral, nontender, no palpable masses, likely Differential Diagnosis Differential Diagnoses: The differential diagnosis associated with the presentation includes See above Admission/Observation Consideration of admission/observation: Escalation of care including admission/observation considered Escalation of care including admission/observation considered however given workup today not warranted at this time. Lab Data [facility] Lab Attestation statement: I reviewed the patient's lab results. No leukocytosis, stable H&H, 11/05/23 09:42 11/05/23 09:42 Labs: Lab Results 11/05/23 11/05/23 Range/Units 09:42 09:43 WBC 9.4 (4.8-10.8) X10*3/uL RBC 4.34 L (4.60-5.80) X10*6/uL Hgb 12.8 L (14.0-18.0) g/dl Hct 38.7 L (42.0-52.0) % MCV 89.2 (80.0-98.0) fL MCH 29.5 (27.0-33.0) pg MCHC 33.1 (31.0-36.0) g/dl RDW 14.8 (11.0-16.0) % Plt Count 231 (160-400) X10*3/uL MPV 9.1 L (9.4-12.4) fL Immature Gran % (Auto) 1.2 H (0.0-0.4) % Neut % (Auto) 68.9 (45-73) % Lymph % (Auto) 12.8 L (20-40) % [place] % (Auto) 15.8 H (2-11) % Eos % (Auto) 0.6 (0-4) % Baso % (Auto) 0.7 (0-2) % Lymph # (Auto) 1.2 (1.2-4.9) X10*3/uL [place] # (Auto) 1.5 H (0.1-1.2) X10*3/uL Eos # (Auto) 0.1 (0.0-0.4) X10*3/uL Baso # (Auto) 0.1 (0.0-0.2) X10*3/uL Abs Immat Gran (auto) 0.11 H (0.00-0.03) X10*3/uL Absolute Neuts (auto) 6.5 (2.0-8.3) x10*3/uL Absolute Nucleated RBC 0.000 (0.0-0.012) X10*3/uL Nucleated RBC % (auto) 0.0 (0.0-0.2) /100WBC ESR 36 H (0-15) MM/HR PT 15.4 H D (11.1-13.3) SEC INR 1.3 H (0.9-1.1) APTT 37.8 H (26.0-36.8) SEC Sodium 137 (135-145) mmol/L Potassium 4.5 (3.3-5.1) mmol/L Chloride 105 (96-108) mmol/L Carbon Dioxide 22 (22-29) mmol/L Anion Gap 15 (12-20) BUN 17 H (9-16) mg/dL Creatinine 1.24 (0.5-1.4) mg/dL Estim Creat Clear Calc 70.9 Estimated GFR 58 Random Glucose 135 H (60-115) mg/dL Lactic Acid 1.7 (0.5-2.0) mmol/L Uric Acid 9.8 H (3.4-7.0) mg/dL Calcium 10.2 (8.4-10.2) mg/dL Total Bilirubin 0.8 (0.0-1.0) mg/dL Direct Bilirubin 0.3 (0.0-0.5) mg/dL AST 22 (5-37) U/L ALT 15 (0-40) U/L Alkaline Phosphatase 91 (39-117) U/L Troponin I High Sens 15.4 D (<3.5-35.0) ng/L C-Reactive Protein 4.29 H (< or = 0.50) mg/dL Total Protein 8.0 (6.5-8.0) g/dL Albumin 4.4 (3.5-5.0) g/dL Independent Interpretation I performed an independent interpretation of an: EKG Interpretation: Atrial flutter, no ST elevation or depression, ventricular rate of 93 beats per minute, QT QTC 346/430 Radiology Impression Discussion of test interpretation with radiology: I have reviewed the radiologist's reading. Radiologist Impression: XR/XR chest 2V IMPRESSION: Large posterior soft tissue swelling and edema of the right elbow with small to moderate elbow joint effusion. No displaced fracture is seen however an occult fracture cannot be excluded. Degenerative changes of the right wrist. No acute cardiopulmonary process. Dictated By: Luna Sawant MD External Record Review External record reviewed: Inpatient record, Office record, Outpatient record, Prior outpatient labs, Prior outpatient radiology, Primary care record and Outside ED record Discharge Plan Discharge Clinical Impression: Gout Patient Disposition: Home, Self-Care Instructions: Low Purine Diet (ED), Gout (ED) Additional Instructions: You were seen today, and your workup revealed that you have a gout flare-up. We gave you a dose of intramuscular steroids, please start prednisone tomorrow. Take Tylenol as needed for pain. You may take oxycodone for severe pain only. Please do not drink or drive while taking this medication. Please be advised that this can cause drowsiness, and can become addictive, only take as needed. Rest, drink plenty of fluids. Gentle range of motion of all your joints is very important. Keep Yoshi wrap on your elbow to help prevent increased swelling. If any new or worsening symptoms occur including but not limited to fevers, chills, worsening pain, worsening stiffness, chest pain or shortness of breath, please return for re-evaluation. Prescriptions: New acetaminophen 325 mg capsule 650 mg PO Q6H PRN (Reason: pain) Qty: 30 0RF prednisone 20 mg tablet 40 mg PO DAILY 5 Days Qty: 10 0RF oxycodone 5 mg tablet 5 mg PO Q6H PRN (Reason: severe pain (scale score 7-10)) Qty: 12 0RF Rx Instructions: Partial Fill upon patient request. No Action omega-3 acid ethyl esters 1 gram capsule 2 cap PO BID Qty: 90 3RF amlodipine 10 mg tablet 10 mg PO DAILY Qty: 90 3RF Eliquis 5 mg tablet 5 mg PO BID Qty: 60 5RF Hold Instructions: Resume on 06/06/23. hold for 48 hours prednisone 20 mg tablet 20 mg PO DAILY 12 Days Qty: 26 0RF Rx Instructions: Take 3 tablets for 5 days THEN; Take 2 tablets for 4 days THEN; Take 1 tablet for 3 days aspirin 81 mg Tablet,Delayed Release (Dr/Ec) 81 mg PO DAILY cyanocobalamin (vitamin B-12) [Vitamin B-12] 500 mcg Tablet 500 mcg PO DAILY cholecalciferol (vitamin D3) [Vitamin D3] 25 mcg (1,000 unit) Capsule 25 mcg PO DAILY acetaminophen 325 mg Tablet 650 mg PO DAILY PRN (Reason: Pain) Patient Comments: TOOK 650MG [id number] Trelegy Ellipta 200-62.5-25 mcg blister with device 1 ea INHALATION DAILY ipratropium-albuterol 0.5 mg-3 mg(2.5 mg base)/3 mL Solution For Nebulization 3 ml INHALATION QID PRN (Reason: Shortness Of Breath Or Wheezing) atorvastatin 40 mg tablet 40 mg PO DAILY magnesium oxide 400 mg (241.3 mg magnesium) tablet 400 mg PO BIDWM cephalexin 500 mg capsule 500 mg PO Q6H 7 Days Qty: 28 0RF gabapentin 600 mg tablet 600 mg PO BID famotidine 40 mg tablet 40 mg PO BID albuterol sulfate 90 mcg/actuation HFA aerosol inhaler 2 puff inhalation QID PRN (Reason: Shortness Of Breath Or Wheezing) Interventions: ED Discharge Assessment Last Done: 11/05/23 12:41 Discharge Date/Time: 11/05/23 12:42 Print Language: Mauritanian
--- NOTE | 2023-11-05 09:13 | ECG_ITS ---
Test Reason : arm pain Blood Pressure : / mmHG Vent. Rate : 093 BPM Atrial Rate : 308 BPM P-R Int : 000 ms QRS Dur : 070 ms QT Int : 346 ms P-R-T Axes : 000 001 062 degrees QTc Int : 430 ms Atrial flutter with variable A-V block with premature ventricular or aberrantly conducted complexes Inferior infarct (cited on or before 06-APR-2016) Cannot rule out Anterior infarct , age undetermined Abnormal ECG When compared with ECG of 15-SEP-2023 15:11, Atrial flutter has replaced Atrial fibrillation Vent. rate has increased BY [address] elevation now present in Inferior leads Nonspecific T wave abnormality no longer evident in Inferior leads Referred By: Svitlana Boggs Electronically Signed By:MORRIS RIVERA
--- NOTE | 2023-11-05 09:46 | PC.NURSE ---
Pt presents to ED from home, reports right arm pain from neck to finger starting suddenly in the middle of the night on Wednesday. Noted to have bruising and swelling to that arm, limited ROM with increased pain. Pain 8/10, burning, sharp, aching. Alert and oriented, breathing even and unlabored
[2023-11-05 09:47] LABS: MANUAL DIFF FLAG NO
[2023-11-05 09:49] LABS: Basophils Absolute Auto 0.1 X10*3/uL (0.0-0.2); Basophils Percent Auto 0.7 % (0-2); Eosinophils Absolute Auto 0.1 X10*3/uL (0.0-0.4); Eosinophils Percent Auto 0.6 % (0-4); Hematocrit 38.7 % (42.0-52.0); Hemoglobin 12.8 g/dl (14.0-18.0); Imm Gran Abs Auto 0.11 X10*3/uL (0.00-0.03); Imm Gran Pct Auto 1.2 % (0.0-0.4); Lymphocytes Absolute Auto 1.2 X10*3/uL (1.2-4.9); Lymphocytes Percent Auto 12.8 % (20-40); Mean Corpuscular HGB Conc 33.1 g/dl (31.0-36.0); Mean Corpuscular Hemoglobin 29.5 pg (27.0-33.0); Mean Corpuscular Volume 89.2 fL (80.0-98.0); Mean Platelet Volume 9.1 fL (9.4-12.4); Monocytes Absolute Auto 1.5 X10*3/uL (0.1-1.2); Monocytes Percent Auto 15.8 % (2-11); Neutrophils Absolute Auto 6.5 x10*3/uL (2.0-8.3); Neutrophils Percent Auto 68.9 % (45-73); Platelet Count 231 X10*3/uL (160-400); Red Blood Count 4.34 X10*6/uL (4.60-5.80); Red Cell Distribution Width 14.8 % (11.0-16.0); White Blood Count 9.4 X10*3/uL (4.8-10.8)
[2023-11-05 09:55] VITALS: RESP 20
[2023-11-05] MEDS: Morphine Sulfate 4 MG/ML CARTRIDGE IVPUSH (09:55)
[2023-11-05 09:56] VITALS: BP 184/82; PULSE 94; RESP 20; O2SAT 97
[2023-11-05 10:05] LABS: Lactic Acid 1.7 mmol/L (0.5-2.0)
[2023-11-05 10:07] LABS: INTERNATIONAL NORM RATIO 1.3 (0.9-1.1); Prothrombin Time 15.4 SEC (11.1-13.3)
[2023-11-05 10:09] LABS: Alanine Aminotransferase 15 U/L (0-40); Albumin Level 4.4 g/dL (3.5-5.0); Alkaline Phosphatase 91 U/L (39-117); Anion Gap 15 (12-20); Aspartate Amino Transferase 22 U/L (5-37); Bilirubin Direct 0.3 mg/dL (0.0-0.5); Bilirubin Total 0.8 mg/dL (0.0-1.0); Blood Urea Nitrogen 17 mg/dL (9-16); C Reactive Protein 4.29 mg/dL (< or = 0.50); Calcium 10.2 mg/dL (8.4-10.2); Carbon Dioxide 22 mmol/L (22-29); Chloride 105 mmol/L (96-108); Creatinine Clr Calc Pharmacy 70.9; Estimated Glomerular Filt Rate 58; Glucose Random 135 mg/dL (60-115); Partial Thromboplastin Time 37.8 SEC (26.0-36.8); Potassium 4.5 mmol/L (3.3-5.1); Sodium 137 mmol/L (135-145); Uric Acid 9.8 mg/dL (3.4-7.0)
[2023-11-05 10:11] LABS: Troponin-I High Sensitivity 15.4 ng/L (<3.5-35.0)
[2023-11-05] MEDS: methylPREDNISolone Sod Succ 40 MG/ML VIAL IM (10:51)
[2023-11-05 11:24] LABS: Erythrocyte Sedimentation Rate 36 MM/HR (0-15)
[2023-11-05 12:41] VITALS: BP 176/92; PULSE 92; RESP 18; TEMP 36.4; O2SAT 97
--- OUTSIDE RECORDS SUMMARY | 2023-11-10 06:29 | XMS_ITS ---
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
--- OUTSIDE RECORDS SUMMARY | 2023-11-10 06:29 | XMS_ITS ---
Author Organization [facility] Address [address] [place] [id number] Care Team Providers Care Commercial Sales Director Name Role Phone Kojo Fermin MD Primary Care Provider Power De La Torre Jr Unavailable ALLERGIES No Known Allergies REASON FOR VISIT Patient presents today for olivier's MEDICATIONS Medication SIG (Take, Route, Frequency, Duration) Notes Start Date End Date Status Famotidine 40 MG 1 tablet Oral Twice a day for 90 days Active Incruse Ellipta 62.5 MCG/INH 1 puff Inha lation Once a day Active Ranolazine ER 500 MG 1 tablet Orally Twi ce a day for 30 day(s) Active Vitamin B12 500 as directed Orally O nce a day Active Calhoun 3 1000 MG 1 capsule Orally Onc e a day for 30 day(s) Active Gabapentin 600 MG as directed Orally tid Active Pramipexole Dihydrochloride 0.125 MG 2 tablet Orally Once a day Active Aspirin 81 MG 1 tablet Orally Once a day Active Metoprolol Tartrate 50 MG 1 tablet with food Oral Twice a day Active Atorvastatin Calcium 40 MG 1 tablet Oral ly Once a day for 30 day(s) Active Lisinopril 40 MG 1 tablet Oral Once a day Active amLODIPine Besylate 10 MG 1 tablet Orall y Once a day Active SOCIAL HISTORY Tobacco Use: Social History Observation Description Date Details (start date - stop date) Former Smoker NA - NA Sex Assigned At : Social History Observation Description Sex Assigned At Unknown Tobacco Use/Smoking Question Answer Notes Patient is a former smoker When did you stop smoking? 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
--- OUTSIDE RECORDS SUMMARY | 2023-11-10 06:29 | XMS_ITS | Patient Health Record ---
Author Organization [facility] Address [address] [place] [address] Care Team Providers Care Audio Visual Arts Director Name Role Phone Zander CORADO, Kojo Primary Care Provider Power De La Torre Jr Unavailable ALLERGIES No Known Allergies RESULTS Component Value Reference Range Notes Pathology Reviewed date:11/18/2022 08:50:20 AM Interpretation: Performing Lab:[facility], [address] [place] [id number] Notes/Report: REASON FOR REFERRAL No Information MEDICATIONS [...] 40 MG Take 1 tablet by rommel twice daily for 90 Active Pramipexole Dihydrochloride [...] directed Orally O nce a day Active [place] 3 1000 MG 1 capsule Orally Onc [...] Problem Colon cancer screening (Z12.11) Active confirmed 988959120 Problem Rectal bleeding (K62.5) Active confirmed 26973243 Problem Left lower quadrant pain (R10.32) Active confirmed 322589624 Problem Other cirrhosis of liver (K74.69) Active confirmed 35208843 Problem Chronic hepatitis C without hepatic coma (B18.2) Active confirmed 350463602 Problem Liver mass (R16.0) Active confirmed 003511995 Problem 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) Active confirmed 7163020481379065 Problem Abnormal ultrasound of liver (R93.2) Active confirmed 58033379277897690 Problem Abnormal MRI, liver (R93.2) Active confirmed 315922483 Problem Focal nodular hyperplasia of liver (K76.89) Active confirmed 782706952 Problem Elevated liver function tests (R94.5) Active confirmed 242624997 VITAL SIGNS Temperature 97.5 degrees Fahrenheit 12/02/2022 Blood pressure diastolic 00 mm Hg 12/02/2022 Height 73.5 in 12/02/2022 Blood pressure systolic 000 mm Hg 12/02/2022 Weight 238 lb 6 oz lbs 12/02/2022 BMI 31.02 kg/m2 12/02/2022 Encounters Encounter Location Date Provider Diagnosis [facility] Outpatient [address] [place], [place] [id number] 11/11/2022 Power Barrera Jr Cedeno's esophagus with dysplasia K22.719 [facility] [address] [place] [address] 12/02/2022 Power Barrera Jr Cedeno's esophagus with dysplasia K22.719 [facility] [address] [facility] [address] [place] [id number] 11/18/2022 Power Barrera Jr ASSESSMENTS Encounter Date [...] C GENOTYPE 03/29/2019 MRI ABD W&WO CONTRAST 01/18/2020 MRI ABD W&WO CONTRAST 05/26/2019 MRI ABD W&WO CONTRAST 01/26/2020 MRI ABD W&WO CONTRAST 03/30/2022 US ABD 06/07/2019 US ABD 09/20/2019 HEPATITIS B CORE ANTIBODY 03/29/2019 HEPATITIS A ANTIBODY-IGG 03/29/2019 HCV LIVER FIBROSIS, FIBRO TEST 0 Future Test Test Name Order Date COLONOSCOPY 08/15/2014 COLONOSCOPY 09/14/2018 UPPER GI ENDOSCOPY 03/30/2022 COLONOSCOPY 03/30/2022 UPPER GI ENDOSCOPY 04/23/2022 Next Appt Details Provider Name:Power hall Jr, 12/01/2023 10:00:00 AM, [address], [address], [place], [address], Insurance Providers Payer Name Payer Address Payer Phone Subscriber Number Group Number Insured Name Patient Relationship to Insured Coverage Start Date Coverage End Date MEDICARE OF [place] [address] [place] [address] [id number] [place] KAHLIL Self - patient is the insured MEDICA[facility] [address] [place] [address] [id number] MINOR SIMHEN Self - patient is the insured MEDICAL (GENERAL) HISTORY Medical History History ICD Code Colon polyps, colonoscopy 04/13, multiple adenomas, three-year followup hepatitis C, F4 fibrosis, status post Pastrana rvoni x12 weeks with SVR hypertension depression back pain elevated cholesterol coronary artery disease, SC 12/2017, ross nt placement leg numbness. anemia [...]
--- OUTSIDE RECORDS SUMMARY | 2023-11-10 06:29 | XMS_ITS ---
Author Organization [facility] Address [address] [place] [address] Care Team Providers Care Horse Wrangler Name Role Phone Kojo Fermin MD Primary Care Provider Power De La Torre Jr REASON FOR VISIT pathology Encounters Encounter Location Date Provider Diagnosis [facility] [address] [place] [address] 11/18/2022 Power Barrera Jr PLAN OF TREATMENT Next Appt Details Provider Name:Power hall Jr, 12/01/2023 10:00:00 AM, [address], [address], [place], [address],
== END 2023-11-05 12:42 | disposition home or self-care (01) ==
PROVIDERS: Physician Assistant Medical; Emergency Provider Emergency Medicine; PCP Internal Medicine
DX: M10.9 Gout, unspecified (principal); M79.601 Pain in right arm; M25.421 Effusion, right elbow
CPT/HCPCS: 36415; 71046; 73070; 73110; 80048; 80076; 83605; 84484; 84550; 85025; 85610; 85652; 85730; 86140; 93005; 96372; 96374; 99284; J2270; J2919

== ENCOUNTER 2023-11-05 12:50 | Outpatient (REF) | payer MEDICARE, MEDICAID, SELFPAY | END 2023-11-05 12:51 | disposition home or self-care (01) | LOC: HO.LAB 12:50 | PROVIDERS: PCP Internal Medicine; Visit Provider Internal Medicine Cardiovascular Disease | DX: Z13.89 Encounter for screening for other disorder (principal) ==

== ENCOUNTER 2024-01-05 10:03 | Outpatient (AMB) | payer MEDICARE, MEDICAID, SELFPAY ==
--- NOTE | 2024-01-05 10:19 | A.OFFVIS_ITS ---
Vital Signs 01/05/24 10:20 Height 6 ft Weight 231 lb 7.766 oz BMI 31.4 BP 130/78 Blood Pressure Location Lt brachial Position Sitting Pulse 95 Pulse Source Monitor Intake Visit Reasons: 1 yr Allergies No Known Allergies [No Known Allergies*] Allergy (Verified 11/05/23 08:55) Medication List - Last Reconciled 01/05/24 by Danilo Em MD acetaminophen 650 mg (2 x 325 mg) PO Q6H PRN albuterol sulfate 90 mcg/actuation 2 puffs inhalation QID PRN amlodipine 10 mg PO DAILY apixaban (Eliquis) 5 mg PO BID aspirin 81 mg PO DAILY atorvastatin 40 mg PO DAILY cholecalciferol (vitamin D3) (Vitamin D3) 25 mcg PO DAILY cyanocobalamin (vitamin B-12) (Vitamin B-12) 500 mcg PO DAILY famotidine 40 mg PO BID klhlwpcfdlj-wrxzsbkuc-fpwozzmm 200-62.5-25 mcg (Trelegy Ellipta) 1 ea inhalation DAILY gabapentin 600 mg PO BID ipratropium-albuterol 0.5 mg-3 mg(2.5 mg base)/3 mL 3 mL inhalation QID PRN magnesium oxide 400 mg PO BIDWM omega-3 acid ethyl esters 2 caps PO BID HPI Comments Details: Vineet comes for follow-up. He underwent ablation for atrial fibrillation with pulmonary vein isolation as well as atrial flutter with CTI ablation. Since then he has not had any prolonged palpitation irregular heartbeat but at nighttime still feels fluttering in his chest. Mostly quick heartbeats. He denies any other heart failure symptoms. Continues to be affected by his back pain which limits his activity level. Denies any exertional chest pain. No shortness of breath, orthopnea, PND. Takes all his medications including Eliquis. No bleeding issues or neurologic events. [facility] Medical History (Updated 01/05/24 @ 11:49 by Danilo Em MD) Atrial flutter CAD (coronary artery disease) Atrial fibrillation Junctional bradycardia COVID-19 Blindness of left eye History of eye prosthesis Thyroid disease GERD (gastroesophageal reflux disease) Numbness On beta patrick at home On anticoagulant therapy Murmur PVD (peripheral vascular disease) Myocardial infarction Alcohol dependence Post laminectomy syndrome Asthma Renal stones COPD (chronic obstructive pulmonary disease) Anemia Hepatitis C Hyperlipidemia HTN (hypertension) SVT (supraventricular tachycardia) Surgical History Hx of eye surgery History of esophagogastroduodenoscopy (EGD) H/O colonoscopy S/P lobectomy of lung (~05/2021) Stented coronary artery Hx of thyroidectomy History of back surgery Hx of cardiac cath Family History Father Cancer Mother CVD (cardiovascular disease) Social History Household Members: None Housing: Apartment Are you a primary direct care supervisor to a significant other at home: No Do you presently have visiting nurse or other home services: No Alcohol intake: current Alcohol intake frequency: 3 or more drinks per day Alcohol type: hard liquor Patient Tobacco Use Status: Former Tobacco user Tobacco use type: Cigarette Cigarette Packs Per Day: 1 Cigarettes Per Day: 20.0 Years Smoked: 40 Second Hand Smoke Exposure: No Substance Use Type: Marijuana Advance Directives Date on File: 09/09/23 service: No Review of Systems Const Denies weakness ENT Denies dizziness Card Denies chest pain, Denies chest pain with activity, Denies syncope, Denies rapid heart rate, Denies pedal edema, Denies edema, Denies leg edema, Denies lightheadedness, Reports palpitations, Denies dyspnea, Denies dyspnea on exertion and Denies orthopnea Resp Denies cough, Denies dyspnea and Denies dyspnea on exertion GI Denies hematochezia and Denies change in stool character Musc Denies abnormal gait, Denies muscle cramps, Denies muscle weakness, Denies numbness, Denies radiating pain into limb and Denies tingling Neuro Denies abnormal gait, Denies dizziness, Denies syncope, Denies numbness, Denies tingling and Denies weakness Endo Reports palpitations Physical Exam Vital Signs: Last Vital Signs Pulse 95 01/05/24 10:20 BP 130/78 01/05/24 10:20 BMI result Body Mass Index 31.4 Const General: cooperative, comfortable, no acute distress, alert and awake Nutritional Appearance: overweight Orientation/consciousness: patient oriented x3 Limitations: no limitations Neck Neck: Yes trachea midline and Yes no JVD Resp Effort & Inspection: normal respiratory effort Auscultation: clear to auscultation bilaterally Cardio Jugular venous distension: no JVD Palpation: normal PMI Rate: regular rate Rhythm: regular rhythm Heart sounds: S1 normal heart sound present, S2 normal heart sound present, no click, no gallops, Murmur heart sound present systolic mid and no rubs GI Auscultation: normal bowel sounds Skin General skin exam: ecchymosis Neuro General: patient oriented x3 and no focal motor deficits Extrem General: Yes no clubbing, cyanosis or edema Office Procedures EKG Details: EKG shows normal sinus rhythm with first-degree AV block with PACs with inferior infarct with nonspecific ST T wave changes [id number], Complete Assessment & Plan Assessment & Plan (1) Paroxysmal atrial fibrillation: Code(s): I48.0 - Paroxysmal atrial fibrillation Category: Medical Plan: Patient status post ablation for atrial fibrillation as well as flutter and maintaining rhythm. Overall significant clinical benefit related to it with no hospitalization. However still continues to have fluttering in his chest most likely due to PACs iron or probably short runs of SVT. Has not tolerated metoprolol in the past with low blood pressure and heart rate. Also can not switch to Cardizem or verapamil as patient is already on amlodipine for blood pressure control. Would therefore start him on low-dose digoxin. Follow-up digoxin assay in 1 week. If he continues to have symptoms and not control with digoxin therapy can consider antiarrhythmic drug therapy with Multaq. This was discussed with him. He is agreeable. Continue full oral anticoagulation, currently on Eliquis 5 mg b.i.d.. Advised to avoid alcohol use due to high bleeding risk scan recurrence of atrial arrhythmias. (2) CAD (coronary artery disease): Code(s): I25.10 - Atherosclerotic heart disease of [place] coronary artery without angina pectoris Category: Medical Plan: CAD with prior RCA stent and inferior [place] along with diffuse vascular disease. Continue aggressive risk factor modification. Currently on aspirin therapy. Continue aggressive risk factor modification with high-intensity statin therapy. Target goal LDL closer to 50 mg/dL. Continue aggressive blood pressure control which is currently well optimized. Encouraged to maintain activity level as tolerated. (3) Aortic stenosis: Code(s): I35.0 - Nonrheumatic aortic (valve) stenosis Category: Medical Plan: Aortic stenosis which is moderate. Recommend echocardiogram in 4 months time. Follow up in the clinic after that. Continue vascular risk factor modification. Management of aortic stenosis were discussed. Follow up in the clinic in 4 months time, sooner p.r.n.. Thank you for allowing me to partake in his care Orders: Orders Digoxin 1 Week I48.20 - Chronic atrial fibrillation, unspecified, I48.92 - Unspecified atrial flutter CA echo transthoracic complete 4 Months I35.0 - Nonrheumatic aortic (valve) stenosis ECG 3 day holter monitor 4 Months I48.92 - Unspecified atrial flutter Medications: New digoxin 125 mcg PO DAILY 30 tabs 5RF Coding Level of Care Code Est Pt Level 4 (55818) Complex EM visit Add On G2211 Diagnoses Paroxysmal atrial fibrillation I48.0 CAD (coronary artery disease) I25.10 Aortic stenosis I35.0 CPT Codes EKG - CPT: 93563-[id number], Complete ([id number])
[2024-01-05 10:20] VITALS: BP 130/78; PULSE 95; BMI 31.4
== END 2024-01-05 10:47 | disposition home or self-care (01) ==
PROVIDERS: PCP Internal Medicine; Visit Provider Internal Medicine Cardiovascular Disease
DX: I48.0 Paroxysmal atrial fibrillation (principal); I25.10 Atherosclerotic heart disease of native coronary artery without angina pectoris; I35.0 Nonrheumatic aortic (valve) stenosis
CPT/HCPCS: 93010; 99214; G2211

== ENCOUNTER → 2024-01-05 10:03 | Outpatient (BNVA) | payer MEDICARE, MEDICAID, SELFPAY | PROVIDERS: PCP Internal Medicine; Visit Provider Internal Medicine Cardiovascular Disease | DX: I48.0 Paroxysmal atrial fibrillation (principal); I25.10 Atherosclerotic heart disease of native coronary artery without angina pectoris; I35.0 Nonrheumatic aortic (valve) stenosis | CPT/HCPCS: 93005; 99212 ==

== ENCOUNTER 2024-01-12 03:45 | Emergency (ER) | payer MEDICARE, MEDICAID, SELFPAY ==
--- NOTE | ~2024-01-12 | XR_ITS ---
EXAMINATION: XR KNEE, LEFT CLINICAL INFORMATION: Pain. COMPARISON: None available. TECHNIQUE: Four views of the left knee. FINDINGS: [Bone mineralization is normal. The joint spaces are maintained. No fracture is seen. There is a 7 mm lucency within the proximal tibial shaft. There is no joint effusion. Arterial vascular calcification is noted. XR/XR knee LT 4V IMPRESSION: 1. No fracture or joint effusion. 2. 7 mm lucency within the proximal tibial shaft. This may represent a small bone cyst. Electronically signed by: Rohan Fuentes MD 01/12/2024 05:12 AM EDT
[2024-01-12 03:54] VITALS: BP 155/82; PULSE 101; RESP 20; TEMP 36.4; O2SAT 98; BMI 32.0
--- OUTSIDE RECORDS SUMMARY | 2024-01-12 04:08 | XMS_ITS | Continuity of Care Document ---
Author Organization [facility] Address Unknown Care Team Providers Care E Mail System Administrator Name Role Phone Kojo Fermin MD Primary Care Physician Encounter [facility] [place] [facility] Date(s): 02/11/21 - 03/13/21 [facility] Allergies, Adverse Reactions, Alerts Substance Reaction Severity Status NKA Active Immunizations Not Given Vaccine Date Status Refusal Reason influenza virus vaccine, inactivated 12/20/17 Not Given Patient Refuses Medications acetaminophen 325 mg oral tablet 650 mg, By Mouth, Every 6 hours, greater than 101.5, Not to exceed 4 GM of Tylenol per 24 hour period, Refills 0, Maintenance, 01/29/21 18:36:00 EST, Partial fill upon patient request if the prescription is for a schedule II opioid drug. Start Date: 01/29/21 Status: Ordered albuterol (OP) nebulizer, Inhalation, 4 times a day, 0 Refills, Maintenance, 2 Start Date: 01/24/21 Status: Ordered amLODIPine 10 mg oral tablet = 10 mg, By Mouth, Daily in AM, 0 Refills, Maintenance, 04/10/15 15:56:28, Tablet Start Date: 04/10/15 Status: Ordered Aspirin Tablet 81 mg, By Mouth, Daily, Maintenance, 04/10/15 15:56:31 Start Date: 04/10/15 Status: Ordered atorvastatin 40 mg oral tablet 1 tablet = 40 mg, By Mouth, Daily, pm, 0 Refills, Maintenance, 01/24/21 15:59:00 EDT, Partial fill upon patient request if the prescription is for a schedule II opioid drug. Start Date: 01/24/21 Status: Ordered cyclobenzaprine 10 mg oral tablet 10 mg, 1, tablet, By Mouth, Daily at bedtime, Refills 0, Maintenance, 01/24/21 15:58:00 EDT, Partial fill upon patient request if the prescription is for a schedule II opioid drug. Start Date: 01/24/21 Status: Ordered famotidine 20 mg oral tablet = 40 mg, By Mouth, Daily at bedtime, 0 Refills, Maintenance, 04/10/15 15:56:44, Tablet Start Date: 04/10/15 Status: Ordered gabapentin 300 mg oral capsule 600 mg, By Mouth, 3 times a day, Refills 0, Maintenance, 04/07/16 11:02:27 EST Start Date: 04/07/16 Status: Ordered lisinopril 40 mg oral tablet = 40 mg, By Mouth, Daily in AM, 0 Refills, Maintenance, 04/10/15 15:56:51, Tablet Start Date: 04/10/15 Status: Ordered metoprolol 50 mg oral tablet = 50 mg, By Mouth, 2 times a day before breakfast and dinne, 0 Refills, Maintenance, 04/10/15 15:56:55, Tablet Start Date: 04/10/15 Status: Ordered [place]-3 oral capsule = 1 Gm, By Mouth, 2 times a day, 0 Refills, Maintenance, 01/17/19 7:42:35 EDT Start Date: 01/17/19 Status: Ordered oxyCODONE 5 mg oral tablet 5 mg, 1, tablet, By Mouth, Every 4 hours, PRN, # 40 tablet, Refills 0, Tot. Refills 0, Maintenance,Pain , Moderate, 01/29/21 18:36:00 EST, Route to Pharmacy Electronically, [facility],Partial fill upon patient request if the prescripti... Start Date: 01/29/21 Status: Ordered Pramipexole = 0.5 mg, By Mouth, Daily, pm, 0 Refills, Maintenance, 01/17/19 7:42:02 EDT Start Date: 01/17/19 Status: Ordered ranolazine 500 mg oral tablet, extended release 1 tablet = 500 mg, By Mouth, 2 times a day, 0 Refills, Maintenance, 01/24/21 15:55:00 EDT, Partial fill upon patient request if the prescription is for a schedule II opioid drug. Start Date: 01/24/21 Status: Ordered Trelegy Ellipta 1 puff, Inhalation, Daily, am, 0 Refills, Maintenance, 01/24/21 15:56:00 EDT, Partial fill upon patient request if the prescription is for a schedule II opioid drug. Start Date: 01/24/21 Status: Ordered Vitamin B12 = 500 mg, By Mouth, Daily, 0 Refills, Maintenance, 01/17/19 7:43:01 EDT Start Date: 01/17/19 Status: Ordered Problem List Condition Effective Dates Status Health Status Inform ant Obese class I(Confirmed) Active Social History Social History Type Response Smoking Status Former smoker, quit more than 30 days ago; Other: Quit 14 years ago; entered on: 01/17/19 Sex
--- OUTSIDE RECORDS SUMMARY | 2024-01-12 04:08 | XMS_ITS | Continuity of Care Document ---
Author Organization [facility] Address [address] [place] [address]- Care Team Providers Care Retail Associate Manager Bilingual Name Role Phone Kojo Fermin MD Primary Care Physician [phone] Encounter [facility] Date(s): 04/29/21 - 05/29/21 [facility] [address] [place], [place] [address] Allergies, Adverse Reactions, Alerts No Known Allergies Immunizations Not Given Vaccine Date Status Refusal [...] Maintenance, 2 Start Date: 01/24/21 Status: Ordered albuterol 0.083% inhalation solution 6 mL = 5 mg, Inhalation, Every 6 hours, PRN for wheezing, # 25 each, 0 Refills, Maintenance, 04/29/21 9:11:00 EST, Solution, Partial fill upon patient request if the prescription is for a schedule IIopioid drug. Start Date: 04/29/21 Status: Ordered amLODIPine 10 mg oral tablet = 10 mg, By Mouth, Daily in AM, 0 Refills, Maintenance, 04/10/15 15:56:28, Tablet Start Date: 04/10/15 Status: Ordered Aspirin Tablet 81 mg, By Mouth, Daily, Maintenance, 04/10/15 15:56:31 Start Date: 1/20/16 Status: Ordered atorvastatin 40 mg oral tablet [...] 15:56:55, Tablet Start Date: 04/10/15 Status: Ordered [place]-3 oral capsule = 1 Gm, By Mouth, 2 times a day, 0 Refills, Maintenance, 01/17/19 7:42:35 EDT Start Date: 01/17/19 Status: Ordered Pramipexole = 0.5 mg, By [...]
--- OUTSIDE RECORDS SUMMARY | 2024-01-12 04:08 | XMS_ITS | Continuity of Care Document ---
Author Organization [facility] Address [address] [place] [address], [address] [place] [address]- Care Team Providers Care Medical Staff Physician Name Role Phone Kojo Fermin MD Primary Care Physician Encounter [facility] [place] Date(s): 05/27/21 - 06/26/21 [facility] [address] [place] [address] Drive, [address] [place], [place] [address] Attending Physician: Rey Laguna Admitting Physician: AdmRey gamboa Referring Physician: AdmtrRey Allergies, Adverse Reactions, Alerts No Known Allergies [...] 15:56:55, Tablet Start Date: 04/10/15 Status: Ordered [place]-3 oral capsule = 1 Gm, By Mouth, [...]
--- OUTSIDE RECORDS SUMMARY | 2024-01-12 04:08 | XMS_ITS | Continuity of Care Document ---
Author Organization [facility] Address [address] [place] [address]- Care Team Providers Care Public Address Technician Name Role Phone Kojo Fermin MD Primary Care Physician Encounter [facility] Date(s): 01/29/21 - 01/29/[address] [address] Discharge Disposition: A-D/C Home Attending Physician: Thanh An MD Admitting Physician: Thanh An MD Referring Physician: Thanh An MD Allergies, Adverse Reactions, Alerts Substance Reaction Severity [...] 15:56:55, Tablet Start Date: 04/10/15 Status: Ordered [place]-3 oral capsule = 1 Gm, By Mouth, 2 times a day, 0 Refills, Maintenance, 01/17/19 7:42:35 EDT Start Date: 01/17/19 Status: Ordered oxyCODONE 5 mg oral tablet 5 mg, 1, tablet, By Mouth, Every 4 hours, PRN, # 40 tablet, Refills 0, Tot. Refills 0, Maintenance,Pain , Moderate, 01/29/21 18:36:00 EST, Route to Pharmacy Electronically, [facility],Partial fill upon patient request if the prescripti... [...] Status Inform ant Obese class I(Confirmed) Active Results Radiology Reports * Exam Date Time Procedure Performing Provider Status 01/29/21 2:41 PM C-Arm > 1 Hour Helen Howard; Au th (Verified) Notes: (C-Arm > 1 Hour) Reason For Exam: Lumbar decompression L3-L4 for stenosis; tt 1hr 15min ft 21.4sec 9 images saved RESULT: C-Arm > 1 Hour Spine Single View, C-Arm > 1 Hour INDICATION: Lumbar decompression L3-L4 for stenosis Fluoroscopy time: 21.4 seconds Dose: 16.8 mGy COMPARISON: 11/28/2020 FINDINGS: Intraoperative fluoroscopy support provided, without radiologist in attendance. 9 fluoroscopy images demonstrating surgical hardware posterior to the presumed L3-L4 level. IMPRESSION: As above. I have personally reviewed the images and I agree with this report. WSN: [id number] Ordering Physician: Thanh An Dictated By: Cristian Stevens DO Dictated Date/Time: 01/29/21 5:08 pm Reviewed By: Enzo Yoon MD Signed By: Enzo Yoon MD Signed Date/Time: 01/29/21 5:13 pm Transcribed By: MAY Transcribed Date/Time: 01/29/21 4:54 pm * Exam Date Time Procedure Performing Provider Status 01/29/21 2:41 PM Spine Single View Helen Howard; Auth (Verified) Notes: (Spine Single View) Reason For Exam: Lumbar decompression L3-L4 for stenosis; tt 1hr 15min ft 21.4sec 9 images saved RESULT: Spine Single View Spine Single View, C-Arm > 1 Hour INDICATION: Lumbar decompression L3-L4 for stenosis Fluoroscopy time: 21.4 seconds Dose: 16.8 mGy COMPARISON: 11/28/2020 FINDINGS: Intraoperative fluoroscopy support provided, without radiologist in attendance. 9 fluoroscopy images demonstrating surgical hardware posterior to the presumed L3-L4 level. IMPRESSION: As above. I have personally reviewed the images and I agree with this report. WSN: [id number] Ordering Physician: Thanh An Dictated By: Cristian Stevens DO Dictated Date/Time: 01/29/21 5:08 pm Reviewed By: Enzo Yoon MD Signed By: Enzo Yoon MD Signed Date/Time: 01/29/21 5:13 pm Transcribed By: MAY Transcribed Date/Time: 01/29/21 4:54 pm Vital Signs Most recent to oldest [Reference Range]: 1 2 3 Height 185.42 cm (01/29/21 11:25 AM) 185.42 cm (01/24/21 5:05 PM) Weight 107.0 kg (01/29/21 11:25 AM) 110.00 kg (01/24/21 5:05 PM) Oxygen Saturation [94-100 %] 94 % (01/29/21 4:25 PM) 98 % (01/29/21 3:45 PM) 99 % (01/29/21 3:30 PM) Pulse Rate [55-90 bpm] 66 bpm (01/29/21 4:25 PM) 66 bpm (01/29/21 11:25 AM) Body Mass Index [18.5-24.99] 31.12 *>HHI* (01/29/21 11:25 AM) 31.99 *>HHI* (01/24/21 5:05 PM) Blood Pressure [90-138/55-84 mm Hg] 144/72mm Hg *H* (01/29/21 4:25 PM) 109/90mm Hg (01/29/21 3:30 PM) 136/67mm Hg (01/29/21 3:15 PM) Respiratory Rate [16-30 br/min] 15 br/min *L* (01/29/21 3:30 PM) 15 br/min *L* (01/29/21 3:15 PM) 15 br/min *L* (01/29/21 3:00 PM) Temperature [96.8-100.4 DegF] 97.8 DegF (01/29/21 4:25 PM) 97.5 DegF (01/29/21 2:30 PM) 97.1 DegF (01/29/21 11:25 AM) Liters per Minute 4 L/min (01/29/21 2:30 PM) Mode of Delivery (Oxygen) Room air (01/29/21 4:25 PM) Room air (01/29/21 3:45 PM) Room air (01/29/21 3:00 PM) Blood pressure sites Arm, right (01/29/21 4:25 PM) Arm, right (01/29/21 2:30 PM) Arm, right (01/29/21 11:25 AM) Temperature Route Oral (01/29/21 4:25 PM) Temporal (01/29/21 2:30 PM) Temporal (01/29/21 11:25 AM) Dry Weight 107.0 kg (01/29/21 11:25 AM) 110.00 kg (01/24/21 5:05 PM) Weight Obtained Via Standing scale (01/29/21 11:25 AM) Dry Weight Obtained Via Standing scale (01/29/21 11:25 AM) Patient/family stated (01/24/21 5:05 PM) Social History Social History Type Response Smoking Status Former smoker, quit more than 30 days ago; Other: Quit 14 years ago; entered on: 01/17/19 Sex
--- OUTSIDE RECORDS SUMMARY | 2024-01-12 04:08 | XMS_ITS | Continuity of Care Document ---
Author Organization [facility] Address Unknown Care Team Providers Care Sanding Supervisor Name Role Phone Kojo Fermin MD Primary Care Physician En[place] [facility] [place] Date(s): 12/03/20 - 01/02/21 [facility] Attending Physician: Rey Laguna Admitting Physician: Rey Laguna Referring Physician: Rey Laguna Allergies, Adverse Reactions, Alerts Substance Reaction Severity Status NKA Active Immunizations Not Given Vaccine Date Status Refusal Reason influenza virus vaccine, inactivated 12/20/17 Not Given Patient Refuses Medications amLODIPine 10 mg oral tablet = 10 mg, By Mouth, Daily in AM, 0 Refills, Maintenance, 04/10/15 15:56:28, Tablet Start Date: 04/10/15 Status: Ordered Aspirin Tablet 81 mg, By Mouth, Daily, Maintenance, 04/10/15 15:56:31 Start Date: 04/10/15 Status: Ordered atorvastatin 80 mg oral tablet = 80 mg, By Mouth, Daily at bedtime, # 30 each, 0 Refills, Maintenance, Tablet, Route to Pharmacy Electronically, [id number], [facility] Start Date: 12/20/17 Stop Date: 01/19/18 Status: Ordered clopidogrel 75 mg oral tablet 75 mg, 1, tablet, By Mouth, Daily, # 30 tablet, Refills 0, Maintenance, 01/17/19 7:41:33 EDT Start Date: 01/17/19 Status: Ordered famotidine 20 mg oral tablet = 40 mg, By Mouth, Daily at bedtime, 0 Refills, Maintenance, 04/10/15 15:56:44, Tablet Start Date: 04/10/15 Status: Ordered gabapentin 300 mg oral capsule 600 mg, By Mouth, 3 times a day, Refills 0, Maintenance, 04/07/16 11:02:27 EST Start Date: 04/07/16 Status: Ordered isosorbide mononitrate 60 mg oral tablet, extended release = 60 mg, By Mouth, Daily in AM, 0 Refills, Maintenance, 04/10/15 15:56:47, ER Tablet Start Date: 04/10/15 Status: Ordered lisinopril 40 mg oral tablet = 40 mg, By Mouth, Daily in AM, 0 Refills, Maintenance, 04/10/15 15:56:51, Tablet Start Date: 04/10/15 Status: Ordered metoprolol 50 mg oral tablet = 50 mg, By Mouth, 2 times a day before breakfast and dinne, 0 Refills, Maintenance, 04/10/15 15:56:55, Tablet Start Date: 04/10/15 Status: Ordered Harrison-3 oral capsule = 1 Gm, By Mouth, 2 times a day, 0 Refills, Maintenance, 01/17/19 7:42:35 EDT Start Date: 01/17/19 Status: Ordered Pramipexole = 0.125 mg, By Mouth, Daily, 0 Refills, Maintenance, 01/17/19 7:42:02 EDT Start Date: 01/17/19 Status: Ordered ticagrelor 90 mg oral tablet 1 tablet = 90 mg, By Mouth, 2 times a day, # 180 tablet, 0 Refills, Maintenance, 12/20/17 11:10:26 EDT, Tablet Start Date: 12/20/17 Stop Date: 03/20/18 Status: Ordered Vitamin B12 = 500 mg, By Mouth, Daily, 0 Refills, Maintenance, 01/17/19 7:43:01 EDT Start Date: 01/17/19 Status: Ordered Social History Social History Type Response Smoking Status Former smoker, quit more than 30 days ago; Other: Quit 14 years ago; entered on: 01/17/19 Sex
--- OUTSIDE RECORDS SUMMARY | 2024-01-12 04:08 | XMS_ITS | Continuity of Care Document ---
Author Organization [facility] Address [address] [place] [address], [address] [place] [address]- Care Team Providers Care Buckle Wire Inserter Name Role Phone Kojo Fermin MD Primary Care Physician [place] [facility] [place] - 02/18/21 [facility] [address] [place] [address] Drive, [address] [place], [place] [address] Attending Physician: Thanh An MD Referring Physician: Kojo Fermin MD Allergies, Adverse Reactions, Alerts Substance Reaction [...] 15:56:55, Tablet Start Date: 04/10/15 Status: Ordered [place]-3 oral capsule = 1 Gm, By Mouth, 2 times a day, 0 Refills, Maintenance, 01/17/19 7:42:35 EDT Start Date: 01/17/19 Status: Ordered oxyCODONE 5 mg oral tablet 5 mg, 1, tablet, By Mouth, Every 4 hours, PRN, # 40 tablet, Refills 0, Tot. Refills 0, Maintenance,Pain , Moderate, 01/29/21 18:36:00 EST, Route to Pharmacy Electronically, [facility],Partial fill upon patient request if the [...] Status Inform ant Obese class I(Confirmed) Active Vital Signs Most recent to oldest [Reference Range]: 1 Height 185.42 cm (02/11/21 9:21 AM) Weight 107.0 kg (02/11/21 9:21 AM) Body Mass Index [18.5-24.99] 31.12 *>HHI* (02/11/21 9:21 AM) Social History Social History Type Response Smoking Status Former smoker, quit more than 30 days ago; Other: Quit 14 years ago; entered on: 01/17/19 Sex
--- OUTSIDE RECORDS SUMMARY | 2024-01-12 04:08 | XMS_ITS | Continuity of Care Document ---
Author Organization [facility] Address [address] [place] [address] a[address], [address] [place] [address]- Care Team Providers Care Jet Mechanic Name Role Phone Zander CORADO, Kojo Primary Care Physician Encounter [facility] Date(s): 02/24/22 - 03/26/22 [facility] [address] [place] [address] Drive, [address] [place], [place] [address] Allergies, Adverse Reactions, Alerts No Known Allergies [...] 15:56:55, Tablet Start Date: 04/10/15 Status: Ordered Peoria-3 oral capsule = 1 Gm, By Mouth, [...] opioid drug. Start Date: 01/24/21 Status: Ordered Tramadol By Mouth, 0 Refills, Maintenance, 02/25/22 9:58:00 EST, Partial fill upon patient request if the prescription is for a schedule II opioid drug. Start Date: 02/25/22 Status: Ordered Trelegy Ellipta 1 puff, Inhalation, Daily, am, 0 Refills, Maintenance, 01/24/21 15:56:00 EDT, Partial fill upon patient request if the prescription is for a schedule II opioid drug. Start Date: 01/24/21 Status: Ordered Vitamin B12 = 500 mg, By Mouth, Daily, 0 Refills, Maintenance, 01/17/19 7:43:01 EDT Start Date: 01/17/19 Status: Ordered Problem List Condition Confirmation Course Effective Dates Status Health St atus Informant Obese class I Confirmed Active Social History Social History Type Response Smoking Status Former smoker, quit more than 30 days ago; Other: Quit 14 years ago; entered on: 01/17/19 Sex Patient Care team information Care Team Personnel Name: Kojo Fermin MD Position: [facility] Outreach Member Role: PCP Address: Address: [address] [place] [address] Internal Medicine [address] Name: Reshma Clarke RN Position: [facility] RN Member Role: Primary Care Nurse Care Team Related Persons Name: CINTHYA PRABHAKAR Address: [place] [address] Name: REEMA SIM Address: [place], [place]
--- OUTSIDE RECORDS SUMMARY | 2024-01-12 04:08 | XMS_ITS | Continuity of Care Document ---
Author Organization [facility] Address [address] [place] [address], [address] [place] [address]- Care Team Providers Care Stripper Black And White Name Role Phone Kojo Fermin MD Primary Care Physician [phone] Encounter [facility] Date(s): 02/25/22 - 03/04/22 [facility] [address] [place] [address] Drive, [address] [place], [place] [address] Attending Physician: Thanh An MD Referring Physician: Kojo Fermin MD Allergies, Adverse Reactions, Alerts No Known Allergies [...] 15:56:55, Tablet Start Date: 04/10/15 Status: Ordered Nashville-3 oral capsule = 1 Gm, By Mouth, [...] atus Informant Obese class I Confirmed Active Vital Signs Most recent to oldest [Reference Range]: 1 Height 186 cm (02/25/22 9:52 AM) Weight 110 kg (02/25/22 9:52 AM) Body Mass Index [18.5-24.99 kg/m2] 31.8 kg/m2 *>HHI* (02/25/22 9:52 AM) Social History Social History Type Response Smoking Status Former smoker, quit more than 30 days ago; Other: Quit 14 years ago; entered on: 01/17/19 Sex Patient Care team information Care Team Personnel Name: Kojo Fermin MD Position: [facility] Outreach Member Role: PCP Address: Address: [address] [place] [address] Internal Medicine [address] Name: Reshma Clarke RN Position: [facility] RN Member Role: Primary Care Nurse Care Team Related Persons Name: CINTHYA PRABHAKAR Address: [place] [address] Name: REEMA SIM Address: [place] [address]
--- OUTSIDE RECORDS SUMMARY | 2024-01-12 04:08 | XMS_ITS | Continuity of Care Document ---
Author Organization [facility] Address [address] [place] [address]- Care Team Providers Care Assistant Women'S Basketball Coach Name Role Phone Kojo Fermin MD Primary Care Physician [phone] [facility] [id number] Date(s): 02/27/23 - 06/27/23 [facility] [address] [place] [address]- Attending Physician: J Carlos Byrd MD Admitting Physician: J Carlos Byrd MD Allergies, Adverse Reactions, Alerts No Known Allergies Medications acetaminophen 325 mg oral tablet 650 [...] 15:56:55, Tablet Start Date: 04/10/15 Status: Ordered Nitroglycerin 0 Refills, Maintenance, 11/24/22 13:10:00 EDT, Partial fill upon patient request if the prescription is for a schedule II opioid drug. Start Date: 11/24/22 Status: Ordered Donn[place]-3 oral capsule = 1 Gm, By Mouth, 2 times a day, 0 Refills, Maintenance, 01/17/19 7:42:35 EDT Start Date: 01/17/19 Status: Ordered Pramipexole = 0.5 mg, By Mouth, Daily, pm, 0 Refills, Maintenance, 01/17/19 7:42:02 EDT Start Date: 01/17/19 Status: Ordered Tramadol By Mouth, 0 Refills, [...] Effective Dates Status Health St atus Informant Lumbosacral radiculitis Confirmed Active Obese class I Confirmed Active Failed back surgical syndrome Confirmed Active Social History Social History Type Response Smoking Status Former smoker, quit more than 30 days ago; Other: Quit 14 years ago; entered on: 01/17/19 Sex Patient Care team information Care Team Personnel Name: Kojo Fermin MD Position: [facility] Outreach Member Role: PCP Address: Address: [address] [place] [address] Internal Medicine [address] Name: Reshma Clarke RN Position: [facility] SN RN Member Role: Primary Care Nurse Care Team Related Persons Name: CINTHYA PRABHAKAR Address: [place] [address] Name: REEMA SIM Address: [place] [address]
--- OUTSIDE RECORDS SUMMARY | 2024-01-12 04:08 | XMS_ITS | Continuity of Care Document ---
Author Organization [facility] Address Unknown Care Team Providers Care Industrial Automation Specialist Name Role Phone Kojo Fermin MD Primary Care Physician [place] [facility] [place]21 - 02/26/21 [facility] Allergies, Adverse Reactions, Alerts Substance [...] 15:56:55, Tablet Start Date: 04/10/15 Status: Ordered Ingleside-3 oral capsule = 1 Gm, By Mouth, 2 times a day, 0 Refills, Maintenance, 01/17/19 7:42:35 EDT Start Date: 01/17/19 Status: Ordered oxyCODONE 5 mg oral tablet 5 mg, 1, tablet, By Mouth, Every 4 hours, PRN, # 40 tablet, Refills 0, Tot. Refills 0, Maintenance,Pain , Moderate, 01/29/21 18:36:00 EST, Route to Pharmacy Electronically, [facility],Partial fill upon patient request if the [...]
--- OUTSIDE RECORDS SUMMARY | 2024-01-12 04:08 | XMS_ITS | Continuity of Care Document ---
Author Organization [facility] Address [address] [place] [address], [address] [place] [address]- Care Team Providers Care Tobacco Stripper Hand Name Role Phone Kojo Fermin MD Primary Care Physician [phone] [place] [facility] [place] 04/01/21 [facility] [address] [place] [address] Drive, [address] [place], [place] [address] Attending Physician: Thanh An MD Allergies, Adverse Reactions, [...] 15:56:55, Tablet Start Date: 04/10/15 Status: Ordered Alva-3 oral capsule = 1 Gm, By Mouth, 2 times a day, 0 Refills, Maintenance, 01/17/19 7:42:35 EDT Start Date: 01/17/19 Status: Ordered oxyCODONE 5 mg oral tablet 5 mg, 1, tablet, By Mouth, Every 4 hours, PRN, # 40 tablet, Refills 0, Tot. Refills 0, Maintenance,Pain , Moderate, 01/29/21 18:36:00 EST, Route to Pharmacy Electronically, [facility],Partial fill upon patient request if [...] oldest [Reference Range]: 1 Height 185.42 cm (03/25/21 9:19 AM) Weight 107.0 kg (03/25/21 9:19 AM) Body Mass Index [18.5-24.99] 31.12 *>HHI* (03/25/21 9:19 AM) Social History Social History Type Response Smoking Status Former smoker, quit more than 30 days ago; Other: Quit 14 years ago; entered on: 01/17/19 Sex
--- OUTSIDE RECORDS SUMMARY | 2024-01-12 04:08 | XMS_ITS | Continuity of Care Document ---
Author Organization [facility] Address [address] [place], [place] [address], [address] [place] [address]- Care Team Providers Care Webfed Offset Press Operator Name Role Phone Kojo Fermin MD Primary Care Physician Encounter [facility] [place] Date(s): 01/21/21 - 01/28/[address], [address] [place] [address]- Attending Physician: Juve CORADO, Thanh Roberts Referring Physician: Fatoumata CORADO, hSar Stevenson Allergies, Adverse Reactions, Alerts Substance Reaction Severity Status NKA Active Immunizations Not Given Vaccine Date Status Refusal Reason influenza virus vaccine, inactivated 12/20/17 Not Given Patient Refuses Medications albuterol (OP) nebulizer, Inhalation, 4 times a [...] opioid drug. Start Date: 01/24/21 Status: Ordered clopidogrel 75 mg oral tablet 75 mg, 1, tablet, By Mouth, Daily, # 30 tablet, Refills 0, Maintenance, 01/17/19 7:41:33 EDT Start Date: 01/17/19 Status: Ordered cyclobenzaprine 10 mg oral tablet [...] 15:56:55, Tablet Start Date: 04/10/15 Status: Ordered [place]-3 oral capsule = 1 Gm, By Mouth, 2 times a day, 0 Refills, Maintenance, 01/17/19 7:42:35 EDT Start Date: 01/17/19 Status: Ordered oxyCODONE 5 mg oral tablet 5 mg, 1, tablet, By Mouth, Every 8 hours, PRN, Refills 0, Tot. Refills 0, Maintenance, Pain , Moderate, 01/24/21 16:00:00 EDT, Partial fill upon patient request if the prescription is for a schedule II opioid drug. Start Date: 01/24/21 Status: Ordered Pramipexole = 0.5 mg, By [...] 7:43:01 EDT Start Date: 01/17/19 Status: Ordered Vital Signs Most recent to oldest [Reference Range]: 1 Height 185 cm (01/21/21 8:53 AM) Weight 108.8 kg (01/21/21 8:53 AM) Body Mass Index [18.5-24.99] 31.79 *>HHI* (01/21/21 8:53 AM) Social History Social History Type Response Smoking Status Former smoker, quit more than 30 days ago; Other: Quit 14 years ago; entered on: 01/17/19 Sex
--- OUTSIDE RECORDS SUMMARY | 2024-01-12 04:08 | XMS_ITS | Continuity of Care Document ---
Author Organization [facility] Address Unknown Care Team Providers Care Funeral Car Chauffeur Name Role Phone Kojo Fermin MD Primary Care Physician [place] [facility] [place]27[place]20 - 03/21/21 [facility] Attending Physician: Jaime Pradhan MD Admitting Physician: Jaiem Pradhan MD Referring Physician: Gordo SAAB, Hilary Reddy Allergies, Adverse Reactions, Alerts Substance Reaction Severity [...] 15:56:55, Tablet Start Date: 04/10/15 Status: Ordered Springbrook-3 oral capsule = 1 Gm, By Mouth, 2 times a day, 0 Refills, Maintenance, 01/17/19 7:42:35 EDT Start Date: 01/17/19 Status: Ordered oxyCODONE 5 mg oral tablet 5 mg, 1, tablet, By Mouth, Every 4 hours, PRN, # 40 tablet, Refills 0, Tot. Refills 0, Maintenance,Pain , Moderate, 01/29/21 18:36:00 EST, Route to Pharmacy Electronically, [facility],Partial fill upon patient request if the [...]
--- OUTSIDE RECORDS SUMMARY | 2024-01-12 04:08 | XMS_ITS | Continuity of Care Document ---
Author Organization [facility] Address [address] [place] [address], [address] [place] [address]- Care Team Providers Care Quality Control Associate Name Role Phone Kojo Fermin MD Primary Care Physician [place] [facility] [place] 04/11/22 [facility] [address] [place] [address] Drive, [address] [place], [place] [address] Attending Physician: Thanh An MD Referring [...] 15:56:55, Tablet Start Date: 04/10/15 Status: Ordered [place]-3 oral capsule = 1 Gm, By Mouth, [...] Team Personnel Name: Kojo Fermin MD Position: [facility] Outreach Member Role: PCP Address: Address: [address] [place] [address] Internal Medicine [place], [place] [address] Name: Reshma Clarke RN Position: [facility] RN Member Role: Primary Care Nurse Care Team Related Persons Name: CINTHYA PRABHAKAR Address: [place] [address] Name: REEMA SIM Address: [place] [address]
--- OUTSIDE RECORDS SUMMARY | 2024-01-12 04:08 | XMS_ITS | Continuity of Care Document ---
Author Organization [facility] Address [address] [place] [address]- Care Team Providers Care Motor Vehicle Inspector Name Role Phone Kojo Fermin MD Primary Care Physician [place] [facility] [place]s): 05/28/23 - 06/27/23 [facility] [address] [place] [address]- Attending Physician: Rey Laguna Admitting Physician: Rey Laguna Referring Physician: AdmtrRey Allergies, Adverse Reactions, Alerts [...] opioid drug. Start Date: 11/24/22 Status: Ordered [place]-3 oral capsule = 1 Gm, By Mouth, [...] Team Personnel Name: Kojo Fermin MD Position: [facility] Outreach Member Role: PCP Address: Address: [address] [place] [address] Internal [address] Name: Reshma Clarke RN Position: [facility] SN RN Member Role: Primary Care Nurse Care Team Related Persons Name: CINTHYA PRABHAKAR Address: [place] [address] Name: REEMA SIM Address: [place] [address]
--- OUTSIDE RECORDS SUMMARY | 2024-01-12 04:08 | XMS_ITS | Continuity of Care Document ---
Author Organization [facility] Address [address] [place] [address]- Care Team Providers Care Design Leader Name Role Phone Kojo Fermin MD Primary Care Physician [place] [facility] [place] 04/29/21 - 05/29/21 [facility] [address] [place], [place] [address] Allergies, Adverse Reactions, Alerts No [...] 15:56:55, Tablet Start Date: 04/10/15 Status: Ordered [place]-3 oral capsule = 1 Gm, By Mouth, [...]
--- OUTSIDE RECORDS SUMMARY | 2024-01-12 04:08 | XMS_ITS | Continuity of Care Document ---
Author Organization [facility] Address [address] [place] [address] [address], [address] [place] [address]- Care Team Providers Care Transfer Engineer Name Role Phone Kojo Fermin MD Primary Care Physician [place] [facility] [place] 03/05/21 [facility] [address] [place] [address] Drive, [address] [place], [place] [address] Allergies, Adverse Reactions, Alerts Substance Reaction Severity [...] 15:56:55, Tablet Start Date: 04/10/15 Status: Ordered [place]-3 oral capsule = 1 Gm, By Mouth, 2 times a day, 0 Refills, Maintenance, 01/17/19 7:42:35 EDT Start Date: 01/17/19 Status: Ordered oxyCODONE 5 mg oral tablet 5 mg, 1, tablet, By Mouth, Every 4 hours, PRN, # 40 tablet, Refills 0, Tot. Refills 0, Maintenance,Pain , Moderate, 01/29/21 18:36:00 EST, Route to Pharmacy Electronically, [facility],Partial fill upon patient request if the [...]
--- OUTSIDE RECORDS SUMMARY | 2024-01-12 04:08 | XMS_ITS | Continuity of Care Document ---
Author Organization [facility] Address Unknown Care Team Providers Care Trumpet Teacher Name Role Phone Kojo Fermin MD Primary Care Physician En[place] [facility] [place] Date(s): 02/06/21 - 03/08/21 [facility] Allergies, Adverse Reactions, Alerts Substance [...] 15:56:55, Tablet Start Date: 04/10/15 Status: Ordered [place]ridge-3 oral capsule = 1 Gm, By Mouth, 2 times a day, 0 Refills, Maintenance, 01/17/19 7:42:35 EDT Start Date: 01/17/19 Status: Ordered oxyCODONE 5 mg oral tablet 5 mg, 1, tablet, By Mouth, Every 4 hours, PRN, # 40 tablet, Refills 0, Tot. Refills 0, Maintenance,Pain , Moderate, 01/29/21 18:36:00 EST, Route to Pharmacy Electronically, [facility],Partial fill upon patient request [...]
--- OUTSIDE RECORDS SUMMARY | 2024-01-12 04:08 | XMS_ITS | Continuity of Care Document ---
Author Organization [facility] Address [address] [place] [address], [address] [place] [address]- Care Team Providers Care Automotive Quality Manager Name Role Phone Kojo Fermin MD Primary Care Physician En[place] [facility] [place] Date(s): 05/09/21 - 06/08/21 [facility] [address] [place] [address], [address] [place], [place] [address] Allergies, Adverse Reactions, Alerts No [...] 15:56:55, Tablet Start Date: 04/10/15 Status: Ordered [place]-3 oral capsule = 1 Gm, By Mouth, [...]
--- OUTSIDE RECORDS SUMMARY | 2024-01-12 04:08 | XMS_ITS | Continuity of Care Document ---
Author Organization [facility] Address [address] [place] [address] [address], [address] [place] [address]- Care Team Providers Care Roll Hand Name Role Phone Kojo Fermin MD Primary Care Physician [place] [facility] [place] 02/25/21 - 03/27/21 [facility] [address] [place] [address] Drive, [address] [place], [place] [address] Allergies, Adverse Reactions, Alerts Substance Reaction Severity [...] 15:56:55, Tablet Start Date: 04/10/15 Status: Ordered [place]-3 oral capsule = 1 Gm, By Mouth, 2 times a day, 0 Refills, Maintenance, 01/17/19 7:42:35 EDT Start Date: 01/17/19 Status: Ordered oxyCODONE 5 mg oral tablet 5 mg, 1, tablet, By Mouth, Every 4 hours, PRN, # 40 tablet, Refills 0, Tot. Refills 0, Maintenance,Pain , Moderate, 01/29/21 18:36:00 EST, Route to Pharmacy Electronically, [facility],Partial fill upon patient request if [...]
--- OUTSIDE RECORDS SUMMARY | 2024-01-12 04:08 | XMS_ITS | Continuity of Care Document ---
Author Organization [facility] Address [address] [place] [address], [address] [place] [address]- Care Team Providers Care Golf Club Weigher Name Role Phone Kojo Fermin MD Primary Care Physician [phone] En[place] [facility] [place] Date(s): 05/07/21 - 06/06/21 [facility] [address] [place] [address], [address] [place], [place] [address] Allergies, Adverse Reactions, Alerts [...] 15:56:55, Tablet Start Date: 04/10/15 Status: Ordered [place]-3 oral capsule = 1 Gm, By Mouth, [...]
--- OUTSIDE RECORDS SUMMARY | 2024-01-12 04:08 | XMS_ITS | Continuity of Care Document ---
Author Organization [facility] Address [address] [place] [address] alexia, [address] [place] [address]- Care Team Providers Care Food And Nutrition Professor Name Role Phone Kojo Fermin MD Primary Care Physician [phone] Encounter [facility] [place] Date(s): 01/01/21 - 01/31/21 [facility] [address] [place] [address] Drive, [address] [place], [place] [address] Allergies, Adverse Reactions, Alerts Substance [...] 15:56:55, Tablet Start Date: 04/10/15 Status: Ordered Huron-3 oral capsule = 1 Gm, By Mouth, 2 times a day, 0 Refills, Maintenance, 01/17/19 7:42:35 EDT Start Date: 01/17/19 Status: Ordered oxyCODONE 5 mg oral tablet 5 mg, 1, tablet, By Mouth, Every 4 hours, PRN, # 40 tablet, Refills 0, Tot. Refills 0, Maintenance,Pain , Moderate, 01/29/21 18:36:00 EST, Route to Pharmacy Electronically, [facility],Partial fill upon patient request if [...]
--- OUTSIDE RECORDS SUMMARY | 2024-01-12 04:08 | XMS_ITS | Continuity of Care Document ---
Author Organization [facility] ter Address [address] [place] [address]- Care Team Providers Care Glassware Verifier Name Role Phone Kojo Fermin MD Primary Care Physician En[place] [facility] [place] Date(s): 02/18/22 - 04/03/[address] [address] Attending Physician: Kojo Fermin MD Admitting Physician: Kojo Fermin MD Referring Physician: Kojo Fermin MD Allergies, [...] 15:56:55, Tablet Start Date: 04/10/15 Status: Ordered Vici-3 oral capsule = 1 Gm, By Mouth, [...] Team Personnel Name: Kojo Fermin MD Position: [facility] Outreach Member Role: PCP Address: Address: [address] [place] [address] Internal Medicine [place], [place] [address] Name: Reshma Clarke RN Position: [facility] RN Member Role: Primary Care Nurse Care Team Related Persons Name: CINTHYA PRABHAKAR Address: [place] [address] Name: REEMA SIM Address: [place] [address]
--- OUTSIDE RECORDS SUMMARY | 2024-01-12 04:08 | XMS_ITS | Continuity of Care Document ---
Author Organization [facility] Address [address] [place] [address] a[address]ia, [address] [place] [address]- Care Team Providers Care Bellman Captain Name Role Phone Kojo Fermin MD Primary Care Physician [place] [facility] [place] Date(s): 05/19/22 - 06/18/22 [facility] [address] [place] [address] Drive, [address] [place], [place] [address] Attending Physician: Rey Laguna Admitting Physician: Rey [...] 15:56:55, Tablet Start Date: 04/10/15 Status: Ordered Agua Dulce-3 oral capsule = 1 Gm, By Mouth, [...] 14 years ago; entered on: 01/17/19 Sex Note * Event Display: Non Lab Results Authored Date: [id number] Patient Care team information Care Team Personnel Name: Kojo Fermin MD Position: [facility] Outreach Member Role: PCP Address: Address: [address] [place] [address] [place] [address]- Name: Reshma Clarke RN Position: [facility] RN Member Role: Primary Care Nurse Care Team Related Persons Name: CINTHYA PRABHAKAR Address: home [place], [place] Name: REEMA SIM Address: home [place], [place]
--- OUTSIDE RECORDS SUMMARY | 2024-01-12 04:08 | XMS_ITS | Continuity of Care Document ---
Author Organization [facility] Address [address] [place] [address], [address] [place] [address]- Care Team Providers Care Stiff Leg Derrick Operator Name Role Phone Kojo Fermin MD Primary Care Physician Encounter [facility] [place] Date(s): 03/28/21 - 06/26/21 [facility] [address] [place] [address] Drive, [address] [place], [place] [address] Attending Physician: Thanh An MD Referring Physician: [...] 15:56:55, Tablet Start Date: 04/10/15 Status: Ordered Milan-3 oral capsule = 1 Gm, By Mouth, [...]
--- OUTSIDE RECORDS SUMMARY | 2024-01-12 04:08 | XMS_ITS | Continuity of Care Document ---
Author Organization [facility] ter Address [address] [place] [address]- Care Team Providers Care Design Eng Name Role Phone Kojo Fermin MD Primary Care Physician Encounter [facility] [place] Date(s): 12/11/20 - 01/25/[address] [address] Attending Physician: Aby Hernandez MD Admitting Physician: Aby Hernandez MD Referring Physician: Aby Hernandez MD Allergies, Adverse Reactions, Alerts Substance Reaction [...] 15:56:55, Tablet Start Date: 04/10/15 Status: Ordered Moccasin-3 oral capsule = 1 Gm, By Mouth, [...]
--- OUTSIDE RECORDS SUMMARY | 2024-01-12 04:08 | XMS_ITS | Continuity of Care Document ---
Author Organization [facility] ter Address [address] [place] [address]- Care Team Providers Care Herb Digger Name Role Phone Kojo Fermin MD Primary Care Physician [place] [facility] [place] 03/27/[place] - 06/08/[address] [address]- Attending Physician: Thanh An MD Admitting Physician: Thanh An MD Allergies, Adverse Reactions, Alerts No Known [...] 15:56:55, Tablet Start Date: 04/10/15 Status: Ordered Fargo-3 oral capsule = 1 Gm, By Mouth, [...] oldest [Reference Range]: 1 Height 186 cm (04/29/21 9:45 AM) Weight 110 kg (04/29/21 9:45 AM) Body Mass Index [18.5-24.99] 31.8 *>HHI* (04/29/21 9:45 AM) Dry Weight 110 kg (04/29/21 9:45 AM) Social History Social History Type Response Smoking Status Former smoker, quit more than 30 days ago; Other: Quit 14 years ago; entered on: 01/17/19 Sex
--- OUTSIDE RECORDS SUMMARY | 2024-01-12 04:08 | XMS_ITS | Continuity of Care Document ---
Author Organization [facility] Address [address] [place] [address], [address] [place] [address]- Care Team Providers Care Cost Clerk Name Role Phone Kojo Fermin MD Primary Care Physician [place] [facility] [place]s): 05/19/22 - 05/26/22 [facility] [address] [place] [address] Drive, [address] [place], [place] [address] Attending Physician: Thanh An MD Allergies, Adverse [...] 15:56:55, Tablet Start Date: 04/10/15 Status: Ordered Covina-3 oral capsule = 1 Gm, By Mouth, [...] oldest [Reference Range]: 1 Height 186 cm (05/19/22 9:17 AM) Weight 110 kg (05/19/22 9:17 AM) Body Mass Index [18.5-24.99 kg/m2] 31.8 kg/m2 *>HHI* (05/19/22 9:17 AM) Social History Social History Type Response Smoking Status Former smoker, quit more than 30 days ago; Other: Quit 14 years ago; entered on: 01/17/19 Sex Patient Care team information Care Team Personnel Name: Kojo Fermin MD Position: [facility] Outreach Member Role: PCP Address: Address: [address] [place] [address] [address] Name: Reshma Clarke RN Position: [facility] RN Member Role: Primary Care Nurse Care Team Related Persons Name: CINTHYA PRABHAKAR Address: [place] [address] Name: REEMA SIM Address: [place] [address]
--- OUTSIDE RECORDS SUMMARY | 2024-01-12 04:08 | XMS_ITS | Continuity of Care Document ---
Author Organization [facility] Address Unknown Care Team Providers Care Ball Rolling Machine Operator Name Role Phone Kojo Fermin MD Primary Care Physician [place] [facility] [place] Date(s): 11/27/20 - 12/27/20 [facility] Allergies, Adverse Reactions, Alerts Substance [...] Refills, Maintenance, Tablet, Route to Pharmacy Electronically, [id number], [facility] Start Date: 12/20/17 Stop Date: [...] 15:56:55, Tablet Start Date: 04/10/15 Status: Ordered Lewiston-3 oral capsule = 1 Gm, By Mouth, [...]
--- OUTSIDE RECORDS SUMMARY | 2024-01-12 04:08 | XMS_ITS | Continuity of Care Document ---
Author Organization [facility] Address [address] [place] [address] [address], [address] [place] [address]- Care Team Providers Care Airplane Mechanic Name Role Phone Kojo Fermin MD Primary Care Physician [place] [facility] [place] 03/27/22 [facility] [address] [place] [address] Drive, [address] [place], [place] [address] Attending Physician: Rey Laguna Admitting Physician: Rey [...] 15:56:55, Tablet Start Date: 04/10/15 Status: Ordered Casselton-3 oral capsule = 1 Gm, By Mouth, [...] Team Personnel Name: Kojo Fermin MD Position: [facility] Outreach Member Role: PCP Address: Address: [address] [place] [address] Internal Medicine [address] Name: Reshma Clarke RN Position: [facility] RN Member Role: Primary Care Nurse Care Team Related Persons Name: CINTHYA PRABHAKAR Address: [place] [address] Name: REEMA SIM Address: [place] [address]
--- OUTSIDE RECORDS SUMMARY | 2024-01-12 04:08 | XMS_ITS ---
Author Organization [facility] Address [address] [place] [address] Care Team Providers Care Medicaid Business Analyst Name Role Phone Kojo Fermin MD Primary Care Provider Power De La Torre Jr REASON FOR VISIT Pt no show Encounters Encounter Location Date Provider Diagnosis [facility] [address] [place] [address] 12/01/2023 Power Barrera Jr PLAN OF TREATMENT Next Appt Details Provider Name:Power hall Jr, 03/06/2024 10:00:00 AM, [address], [address], [place], [address],
--- OUTSIDE RECORDS SUMMARY | 2024-01-12 04:09 | XMS_ITS ---
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
--- OUTSIDE RECORDS SUMMARY | 2024-01-12 04:09 | XMS_ITS ---
Author Organization [facility] Address [address] [place] [address] Care Team Providers Care Fast Food Crew Lead Name Role Phone Kojo Fermin MD Primary Care Provider Power De La Torre Jr REASON FOR VISIT Patient presents today for olivier's Encounters Encounter Location Date Provider Diagnosis [facility] [address] [place] [address] 12/01/2023 Power Barrera Jr PLAN OF TREATMENT Next Appt Details Provider Name:Power hall Jr, 03/06/2024 10:00:00 AM, [address], [address], [place], [address],
--- OUTSIDE RECORDS SUMMARY | 2024-01-12 04:10 | XMS_ITS | Patient Health Record ---
Author Organization [facility] Address [address] [place] [address] Care Team Providers Care Medical Laboratory Technicians Name Role Phone Kojo Fermin MD Primary Care Provider Power De La Torre Jr Unavailable ALLERGIES No Known Allergies REASON FOR REFERRAL No Information MEDICATIONS Medication [...] directed Orally O nce a day Active [place] 3 1000 MG 1 capsule Orally Onc [...] Problem Colon cancer screening (Z12.11) Active confirmed 294606860 Problem Rectal bleeding (K62.5) Active confirmed 78952350 Problem Left lower quadrant pain (R10.32) Active confirmed 216257797 Problem Other cirrhosis of liver (K74.69) Active confirmed 87259822 Problem Chronic hepatitis C without hepatic coma (B18.2) Active confirmed 434207978 Problem Liver mass (R16.0) Active confirmed 390906195 Problem 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) Active confirmed 0420534212844445 Problem Abnormal ultrasound of liver (R93.2) Active confirmed 36687699386040248 Problem Abnormal MRI, liver (R93.2) Active confirmed 113870579 Problem Focal nodular hyperplasia of liver (K76.89) Active confirmed 925829433 Problem Elevated liver function tests (R94.5) Active confirmed 580487514 Encounters Encounter Location Date Provider Diagnosis [facility] [address] [place] [phone] 12/01/2023 Power Barrera Jr [facility] [address] [place] [phone] 12/01/2023 Power Barrera Jr PLAN OF TREATMENT Pending Test Test Name Order Date BUN 01/26/2020 BUN 03/30/2022 BUN 05/26/2019 CREATININE 05/26/2019 CREATININE 01/26/2020 CREATININE 03/30/2022 LIVER PROFILE 03/30/2022 LIVER PROFILE 04/23/2022 LIVER [...] Next Appt Details Provider Name:Power hall , 03/06/2024 10:00:00 AM, [address] [place] [address], [address], [place], [address], Insurance Providers Payer Name Payer Address Payer Phone Subscriber Number Group Number Insured Name Patient Relationship to Insured Coverage Start Date Coverage End Date MEDICARE OF [place] [address] [place] [address] [id number] KAHLIL SIM Self - patient is the insured MEDICAID OF [facility] [address] [place] [address] [id number] KAHLIL SIM Self - patient is the insured MEDICAL (GENERAL) HISTORY Medical History History ICD Code Colon polyps, colonoscopy 04/13, multiple adenomas, three-year followup hepatitis C, F4 fibrosis, status post [place] rvoni x12 weeks with SVR hypertension depression back pain elevated cholesterol coronary artery disease, MS 12/2017, rsos nt placement leg numbness. anemia COPD XAVIER/CPAP [...]
--- NOTE | 2024-01-12 04:50 | PC.NURSE ---
left knee, swollen, red, and warm, can not walk on left leg, pt states he woke up yesterday and it was hurting, and today, he can't walk on it. pt states he has a history of gout, but never in his knee. Pt denies any injury to knee
[2024-01-12 06:30] VITALS: BP 140/79; PULSE 85; RESP 16; TEMP 36.6; O2SAT 97
--- NOTE | 2024-01-12 06:35 | ED.LOWEXIN ---
HPI - Extremity Injury (Lower) General Chief Complaint: Extremity Injury, Lower Stated Complaint: left knee pain Time Seen by Provider: 01/12/24 06:33 Source: patient Mode of arrival: ambulatory Limitations: no limitations History of Present Illness ED Provider: VERONICA QUINTERO PA-C HPI Narrative: 69 year old male with pmhx significant for junctional bradycardia, NC, afib, alcohol dependence, asthma, COPD, hepatitis C, HTN, SVT, gout, and CAD presents to the ED today for evaluation of left knee pain x2 days. Reports gradual onset of left knee pain which worsened yesterday when he stood up from his recliner. Pain is diffuse, does not radiate up or down the extremity. Reports hx of gout. He takes allopurinol 100mg daily for this. States this feels like a typical gout attack. Denies known injury/ trauma/ fall. Denies recent travel or long car rides. Denies numbness, tingling, weakness of the LEs. Denies fever, chills. Related Data Home Medications ?Medication ?Instructions ?Recorded ?Confirmed famotidine 40 mg tablet 40 mg PO BID 04/12/20 01/05/24 gabapentin 600 mg tablet 600 mg PO BID 04/12/20 01/05/24 albuterol sulfate 90 mcg/actuation 2 puff inhalation QID PRN 10/26/22 01/05/24 aerosol inhaler Shortness Of Breath Or Wheezing aspirin 81 mg tablet,delayed 81 mg PO DAILY 05/19/23 01/05/24 release cholecalciferol (vitamin D3) 25 25 mcg PO DAILY 05/19/23 01/05/24 mcg (1,000 unit) capsule (Vitamin D3) cyanocobalamin (vitamin B-12) 500 500 mcg PO DAILY 05/19/23 01/05/24 mcg tablet (Vitamin B-12) fluticasone fur. 200 mcg-umeclid 1 ea inhalation DAILY 05/19/23 01/05/24 62.5 mcg-vilant 25 mcg inhalat.powder (Trelegy Ellipta) ipratropium 0.5 mg-albuterol 3 mg 3 ml inhalation QID PRN Shortness 05/19/23 01/05/24 (2.5 mg base)/3 mL nebulization Of Breath Or Wheezing soln atorvastatin 40 mg tablet 40 mg PO DAILY 09/14/23 01/05/24 magnesium oxide 400 mg (241.3 mg 400 mg PO BIDWM 09/14/23 01/05/24 magnesium) tablet Previous Rx's ?Medication ?Instructions ?Recorded omega-3 acid ethyl esters 1 gram 2 cap PO BID #90 caps 01/27/21 capsule apixaban 5 mg tablet (Eliquis) 5 mg PO BID #60 tabs 05/21/23 acetaminophen 325 mg capsule 650 mg (2 x 325 mg) PO Q6H PRN 11/05/23 pain #30 caps amlodipine 10 mg tablet 10 mg PO DAILY #90 tabs 11/10/23 digoxin 125 mcg (0.125 mg) tablet 125 mcg PO DAILY #30 tabs 01/05/24 prednisone 20 mg tablet See Taper PO DAILY #26 tabs 01/12/24 Allergies Allergy/AdvReac Type Severity Reaction Status Date / Time No Known Allergies Allergy Verified 01/12/24 03:55 [No Known Allergies*] Review of Systems Review of Systems: Constitutional: No fever, chills, fatigue, night sweats, weight changes ENT/Mouth: No ear pain, hearing loss, nasal congestion, sinus pain, rhinorrhea, sore throat Eyes: No eye pain, swelling, redness, vision changes, discharge Cardio: No chest pain, palpitations, CORRALES, orthopnea, peripheral edema Pulm: No SOB, cough, sputum, wheezing, dyspnea, hemoptysis GI: No nausea, vomiting, hematemesis, abdominal pain, diarrhea, constipation, hematochezia, melena : No irregular bleeding, dysuria, frequency, urgency, hesitancy, hematuria, flank pain, urinary flow changes, urinary incontinence or retention MSK: No back pain, neck pain, joint pain, myalgias, +left knee pain Skin: No lesions, rashes Neuro: No weakness, numbness, paresthesias, LOC, dizziness, headache Psych: No anxiety/panic, depression, SI/HI, AH/VH All other systems reviewed and are negative. FOR[facility]LY [facility], [facility] Past Medical History Attestation statement: The following information was validated with the patient. Source: old records reviewed and nursing notes reviewed Medical History Atrial flutter CAD (coronary artery disease) Atrial fibrillation Junctional bradycardia COVID-19 Blindness of left eye History of eye prosthesis Thyroid disease GERD (gastroesophageal reflux disease) Numbness On beta patrick at home On anticoagulant therapy Murmur PVD (peripheral vascular disease) Myocardial infarction Alcohol dependence Post laminectomy syndrome Asthma Renal stones COPD (chronic obstructive pulmonary disease) Anemia Hepatitis C Hyperlipidemia HTN (hypertension) SVT (supraventricular tachycardia) Surgical History Hx of eye surgery History of esophagogastroduodenoscopy (EGD) H/O colonoscopy S/P lobectomy of lung (~05/2021) Stented coronary artery Hx of thyroidectomy History of back surgery Hx of cardiac cath Family History Family History Father Cancer Mother CVD (cardiovascular disease) Social History Social History Household Members: None Housing: Apartment Are you a primary home care giver to a significant other at home: No Do you presently have visiting nurse or other home services: No Alcohol intake: current Alcohol intake frequency: 0-2 drinks per day Alcohol type: hard liquor Patient Tobacco Use Status: Former Tobacco user Tobacco use type: Cigarette Cigarette Packs Per Day: 1 Cigarettes Per Day: 20.0 Years Smoked: 40 Smoked in Last 30 Days: No Second Hand Smoke Exposure: No Use of substances other than those prescribed or required for medical reasons: No Substance Use Type: Marijuana Advance Directives: Yes Advance Directives on File: Yes Advance Directives Date on File: 09/09/23 Do you have a plan to hurt others: No Plan service: No Physical Exam Vital Signs: Vital Signs: Last Vital Signs Temp 97.9 F 01/12/24 06:30 Pulse 85 01/12/24 06:30 Resp 16 01/12/24 06:30 BP 140/79 H 01/12/24 06:30 Pulse Ox 97 01/12/24 06:30 O2 Del Method Room Air 01/12/24 06:30 BMI result Body Mass Index 32.0 vital signs stable, afebrile General: Well appearing, in no acute distress. Skin: Warm, dry, intact. No rashes or lesions. Head: Normocephalic, atraumatic. EENT: Hearing is intact b/l. Conjunctiva clear. PERRLA. EOM intact. Moist mucous membranes.? Neck: Supple without LAD Cardiac: Chest wall symmetric. RRR Lungs: Normal respiratory effort without accessory muscle use. CTA bilaterally. Back: No midline spinous or paraspinal tenderness. No step off deformity. Ext: +LLE without noted deformity. minimal swelling noted to left knee with overlying erythema and slight warmth. ttp. FROM intact with pain on flexion of knee. 2+ PT/DP and popliteal pulse intact. no calf tenderness bilaterally. sensation intact. strength intact. cap refill <2 sec. Neuro: AOx3. Normal speech. Ambulating with steady gait. Psych: Appropriate mood and affect. Responds appropriately to questions. Medical Decision Making Medical Decision Making MDM Narrative: 69 year old male with pmhx significant for junctional bradycardia, NC, afib, alcohol dependence, asthma, COPD, hepatitis C, HTN, SVT, gout, and CAD presents to the ED today for evaluation of left knee pain x2 days. Hypertensive, vitals otherwise wnl. on exam, LLE without noted deformity. minimal swelling noted to left knee with overlying erythema and slight warmth. ttp. FROM intact with pain on flexion of knee. 2+ PT/DP and popliteal pulse intact. no calf tenderness bilaterally. sensation intact. strength intact. cap refill <2 sec. Differential diagnosis includes gout, pseudo gout, arthritis. lower suspicion for fracture, dislocation. unlikely gaytan's cyst, DVT, ligament/ tendon injury, nv compromise, threat to limb, compartment syndrome. Plan for imaging, pain control, and re-evaluation. Differential Diagnosis Differential Diagnoses: The differential diagnosis associated with the presentation includes as above. Admission/Observation not indicated. Independent Interpretation I performed an independent interpretation of an: Plain X-Ray Interpretation: xr left knee without fracture, agree with radiologist's interpretation. Radiology Impression Discussion of test interpretation with radiology: I have reviewed the radiologist's reading. Radiologist Impression: EXAMINATION: XR KNEE, LEFT CLINICAL INFORMATION: Pain. COMPARISON: None available. TECHNIQUE: Four views of the left knee. FINDINGS: [Bone mineralization is normal. The joint spaces are maintained. No fracture is seen. There is a 7 mm lucency within the proximal tibial shaft. There is no joint effusion. Arterial vascular calcification is noted. XR/XR knee LT 4V IMPRESSION: 1. No fracture or joint effusion. 2. 7 mm lucency within the proximal tibial shaft. This may represent a small bone cyst. Electronically signed by: Rohan Fuentes MD 01/12/2024 05:12 AM EDT External Record Review External record reviewed: Inpatient record, Office record, Outpatient record, Prior outpatient labs, Prior outpatient radiology and Primary care record Tests considered The following testing was considered but not selected: i considered obtaining labs however hx of gout, clinical suspicion for gout, not indicated at this time. Prescription Management I considered prescription management with: Other (prednisone) Chronic Conditions Patient?s care impacted by: Other (gout) Social Determinants Patient?s care significantly limited by Social Determinants of Health including: Alcoholism and drug addiction in family and Other Social Determinant of Health Critical Care Time Critical Care Time Critical Care Time: No Discharge Plan Discharge Clinical Impression: Gout Qualifiers: Gout site: knee Patient Disposition: Home, Self-Care Instructions: Low Purine Diet (ED), Gout (ED) Additional Instructions: You were seen in the ED today for left knee pain. Your xray did not demonstrate fracture. It does show incidental finding of possible bone cyst - please follow up with your PCP regarding this finding as you may warrant further work up out patient. Your physical exam is consistent with a gout attack. Take the prednisone taper as directed: 3 tabs (60 mg) daily for 5 days 2 tabs (40 mg) daily for 4 days 1 tab (20 mg) daily for 3 days. I recommend you take Tylenol 650mg every 6 hours as needed for pain. Follow up with PCP this week. Return with new or worsening symptoms. In the case of an emergency call 911. Prescriptions: New prednisone 20 mg tablet See Taper PO DAILY Qty: 26 0RF Taper: Prednisone 60 mg daily for 5 Days and 0 Hour 40 mg daily for 4 Days and 0 Hour 20 mg daily for 3 Days and 0 Hour Rx Instructions: see discharge instructions No Action omega-3 acid ethyl esters 1 gram capsule 2 cap PO BID Qty: 90 3RF Eliquis 5 mg tablet 5 mg PO BID Qty: 60 5RF amlodipine 10 mg tablet 10 mg PO DAILY Qty: 90 3RF aspirin 81 mg Tablet,Delayed Release (Dr/Ec) 81 mg PO DAILY cyanocobalamin (vitamin B-12) [Vitamin B-12] 500 mcg Tablet 500 mcg PO DAILY cholecalciferol (vitamin D3) [Vitamin D3] 25 mcg (1,000 unit) Capsule 25 mcg PO DAILY Trelegy Ellipta 200-62.5-25 mcg blister with device 1 ea INHALATION DAILY ipratropium-albuterol 0.5 mg-3 mg(2.5 mg base)/3 mL Solution For Nebulization 3 ml INHALATION QID PRN (Reason: Shortness Of Breath Or Wheezing) atorvastatin 40 mg tablet 40 mg PO DAILY magnesium oxide 400 mg (241.3 mg magnesium) tablet 400 mg PO BIDWM acetaminophen 325 mg capsule 650 mg PO Q6H PRN (Reason: pain) Qty: 30 0RF gabapentin 600 mg tablet 600 mg PO BID famotidine 40 mg tablet 40 mg PO BID albuterol sulfate 90 mcg/actuation HFA aerosol inhaler 2 puff inhalation QID PRN (Reason: Shortness Of Breath Or Wheezing) digoxin 125 mcg (0.125 mg) tablet 125 mcg PO DAILY Qty: 30 5RF Referrals: Kojo Fermin MD [Primary Care Provider] - Print Language: Estonian
[2024-01-12] MEDS: Acetaminophen 325 MG TABLET 650 MG PO (06:56)
[2024-01-12 07:09] VITALS: BP 140/79; PULSE 85; RESP 16; TEMP 36.6; O2SAT 97
== END 2024-01-12 07:10 | disposition home or self-care (01) ==
PROVIDERS: Emergency Provider Emergency Medicine; PCP Internal Medicine
DX: M10.9 Gout, unspecified (principal); M25.562 Pain in left knee; I10 Essential (primary) hypertension; E78.5 Hyperlipidemia, unspecified; J45.909 Unspecified asthma, uncomplicated; Z79.899 Other long term (current) drug therapy; Z79.02 Long term (current) use of antithrombotics/antiplatelets
CPT/HCPCS: 73564; 99283; 99284

== ENCOUNTER 2024-01-13 07:55 | Outpatient (REF) | payer MEDICARE, MEDICAID, SELFPAY ==
[2024-01-13 09:22] LABS: Digoxin 0.4 ng/mL (0.8-2.0)
== END 2024-01-13 07:56 | disposition home or self-care (01) ==
LOC: HO.LAB 07:55
PROVIDERS: PCP Internal Medicine; Visit Provider Internal Medicine Cardiovascular Disease
DX: I48.20 Chronic atrial fibrillation, unspecified (principal); I48.92 Unspecified atrial flutter
CPT/HCPCS: 36415; 80162

== ENCOUNTER 2024-01-18 13:00 | Outpatient (REF) | payer MEDICARE, MEDICAID, SELFPAY ==
[2024-01-18 16:45] LABS: MANUAL DIFF FLAG NO
[2024-01-18 16:50] LABS: Basophils Absolute Auto 0.1 X10*3/uL (0.0-0.2); Basophils Percent Auto 0.4 % (0-2); Hematocrit 34.9 % (42.0-52.0); Hemoglobin 11.6 g/dl (14.0-18.0); Imm Gran Abs Auto 0.62 X10*3/uL (0.00-0.03); Imm Gran Pct Auto 4.7 % (0.0-0.4); Lymphocytes Absolute Auto 1.3 X10*3/uL (1.2-4.9); Lymphocytes Percent Auto 9.9 % (20-40); Mean Corpuscular HGB Conc 33.2 g/dl (31.0-36.0); Mean Corpuscular Hemoglobin 29.4 pg (27.0-33.0); Mean Corpuscular Volume 88.6 fL (80.0-98.0); Mean Platelet Volume 10.2 fL (9.4-12.4); Monocytes Absolute Auto 0.7 X10*3/uL (0.1-1.2); Monocytes Percent Auto 5.3 % (2-11); Neutrophils Absolute Auto 10.4 x10*3/uL (2.0-8.3); Neutrophils Percent Auto 79.7 % (45-73); Platelet Count 248 X10*3/uL (160-400); Red Blood Count 3.94 X10*6/uL (4.60-5.80); Red Cell Distribution Width 16.1 % (11.0-16.0); White Blood Count 13.1 X10*3/uL (4.8-10.8)
[2024-01-18 17:23] LABS: Alanine Aminotransferase 57 U/L (0-40); Albumin Level 4.3 g/dL (3.5-5.0); Alkaline Phosphatase 84 U/L (39-117); Anion Gap 15 (12-20); Aspartate Amino Transferase 43 U/L (5-37); Bilirubin Total 0.4 mg/dL (0.0-1.0); Blood Urea Nitrogen 23 mg/dL (9-16); Carbon Dioxide 22 mmol/L (22-29); Chloride 103 mmol/L (96-108); Estimated Glomerular Filt Rate > 60; Glucose Random 165 mg/dL (60-115); Potassium 4.3 mmol/L (3.3-5.1); Sodium 136 mmol/L (135-145); Total Protein 7.4 g/dL (6.5-8.0)
[2024-01-18 17:24] LABS: Estimated Average Glucose 123 mg/dL; Hemoglobin A1C 127.0219 umol/L; Hemoglobin A1c % 5.9 % (<6.0); Total Hemoglobin (HGBA1C) 3084.1149 umol/L
[2024-01-18 17:28] LABS: TSH reflex Free T4 1.19 uIU/mL (0.32-4.0)
== END 2024-01-18 13:01 | disposition home or self-care (01) ==
LOC: HO.HMGCLDS 13:00
PROVIDERS: PCP Internal Medicine; Visit Provider Internal Medicine
DX: I10 Essential (primary) hypertension (principal); R73.01 Impaired fasting glucose; E83.42 Hypomagnesemia
CPT/HCPCS: 36415; 80053; 83036; 83735; 84443; 85025

== ENCOUNTER 2024-03-24 09:00 | Outpatient (REF) | payer MEDICARE, MEDICAID, SELFPAY ==
--- NOTE | ~2024-03-24 | MR_ITS ---
EXAMINATION: MRI Abdomen without and with contrast HISTORY: LIVER LESION, PANCREATIC KIDNEY CYST COMPARISON: Comparison is made with the prior examination dated 04/06/2022. TECHNIQUE: Axial in and out of phase T1-weighted gradient echo, axial diffusion weighted, and axial and coronal haste T2 with fat saturation images were obtained through the abdomen. 3D MRCP Reconstructed images and thick slab imaging of the biliary tree were obtained. Subsequently, fat suppressed axial and coronal T1-weighted images were obtained after the intravenous administration of 10 mL Gadavist. FINDINGS: There is moderate diffuse loss of signal intensity within the liver on opposed phase imaging, consistent with steatosis. Again seen are numerous hepatic cysts including a 3.4 cm cyst in the left lobe and a 3.2 cm cyst in the inferior right lobe, which demonstrates thin septations. Again seen is a 2.3 cm enhancing mass in the left lobe (series 17, image 40), without change. No additional enhancing liver mass is identified. The hepatic and portal veins are patent. There is no intra or extrahepatic biliary ductal dilatation. There is cholelithiasis. Again seen is a tiny 2-3 mm cyst in the body of the pancreas without change. There may be an additional smaller cyst in the tail. No enhancing pancreatic mass is identified. The spleen is unremarkable. Again seen is a 10 mm right adrenal nodule without definite loss of signal intensity on opposed phase imaging. The left adrenal gland is unremarkable. Again noted are multiple bilateral renal cysts, many of which demonstrate septations. The previously seen more complex appearing right renal cyst is not definitely identified. No retroperitoneal lymphadenopathy or ascites is identified in the upper abdomen. MR/MR abdomen wo/w con IMPRESSION: 1. Hepatic steatosis. Cholelithiasis. Stable 10 mm nonspecific right adrenal mass. 2. Stable 2.3 cm enhancing mass in the left lobe of the liver. 3. Stable tiny 2-3 mm cysts in the pancreas. These could be followed with MRI in 12 months. 4. Multiple hepatic and bilateral renal cysts, many of which demonstrate thin septations. These could also be followed-up at the time of follow-up of the pancreatic lesions. The previously seen more complex appearing right renal lesion is not definitely identified. Electronically signed by: Kenny Peter MD 03/27/2024 11:41 AM MARYANNE WEI
--- OUTSIDE RECORDS SUMMARY | 2024-03-24 09:18 | XMS_ITS ---
Author Organization [facility] Address [address] [place] [address] Care Team Providers Care Parts Interpreter Name Role Phone Kojo Fermin MD Primary Care Provider Power De La Torre Jr REASON FOR VISIT MRI PROBLEMS Problem Type ICD Code Onset Dates Problem Status W/U Status Risk SNOMED Code Notes Problem Liver lesion (K76.9) Active confirmed 794404858 Problem Pancreatic cyst (K86.2) Active confirmed 37823187 Problem Kidney cysts (N28.1) Active confirmed 411125045 Encounters Encounter Location Date Provider Diagnosis [facility] [address] [place] [address] 03/06/2024 Power Barrera Jr Liver lesion K76.9 ; Pancreatic cyst K86.2 and Kidney cysts N28.1 ASSESSMENTS Encounter Date Diagnosis Assessment Notes Treatment Notes Treatment Clinical Notes 03/06/2024 Liver lesion (ICD-10 - K76.9) 03/06/2024 Pancreatic cyst (ICD-10 - K86.2) 03/06/2024 Kidney cysts (ICD-10 - N28.1) PLAN OF TREATMENT Pending Test Test Name Order Date BUN 03/06/2024 CREATININE 03/06/2024 MRI ABD W&WO CONTRAST 03/06/2024 Next Appt Details Provider Name:Power hall Jr, 03/07/2025 11:10:00 AM, [address], [address], [place], [address],
--- OUTSIDE RECORDS SUMMARY | 2024-03-24 09:19 | XMS_ITS ---
Author Organization [facility] Address [address] [place] [address] Care Team Providers Care Machine Wiper Name Role Phone Kojo Fermin MD Primary Care Provider Power De La Torre Jr REASON FOR VISIT Pt no show Encounters Encounter Location Date Provider Diagnosis [facility] [address] [place] [address] 12/01/2023 Power Barrera Jr PLAN OF TREATMENT Next Appt Details Provider Name:Power hall Jr, 03/07/2025 11:10:00 AM, [address], [address], [place], [address],
--- OUTSIDE RECORDS SUMMARY | 2024-03-24 09:19 | XMS_ITS | Patient Health Record ---
Author Organization [facility] Address [address] [place] [address] Care Team Providers Care Bull Riveter Name Role Phone Kojo Fermin MD Primary Care Provider Power De La Torre Jr Unavailable [phone] ALLERGIES No Known Allergies REASON FOR REFERRAL No Information MEDICATIONS Medication SIG (Take, Route, Frequency, Duration) Notes Start Date End Date Status Atorvastatin Calcium 40 MG 1 tablet Oral ly Once a day for 30 day(s) Active Vitamin B-12 1000 MCG TAKE 1 TABLET BY M OUTH IN THE MORNING Oral for 90 Active Trelegy Ellipta 200-62.5-25 MCG/ACT Inhalation for 90 Active Pramipexole Dihydrochloride 0.125 MG 2 tablet Orally Once a day Active Aspirin 81 MG 1 tablet Orally Once a day Active Digoxin 125 MCG Oral for 30 Ac tive Lisinopril 40 MG 1 tablet Oral Once a day Active Magnesium Oxide 400 MG TAKE 1 TABLET BY MOUTH ONCE DAILY Oral for 30 Active amLODIPine Besylate 10 MG 1 tablet Orall y Once a day Active Famotidine 40 MG Take 1 tablet by rommel th twice daily for 90 Active Metoprolol Tartrate 50 MG 1 tablet with food Oral Twice a day Active Colchicine 0.6 MG Oral for 20 Active Gabapentin 600 MG as directed Orally tid Active Allopurinol 100 MG Oral for 90 Active Vitamin B12 500 as directed Orally O nce a day Active [place] 3 1000 MG 1 capsule Orally Onc e a day for 30 day(s) Active Eliquis 5 MG as directed Orally Active Incruse Ellipta 62.5 MCG/INH 1 puff Inha lation Once a day Active Ranolazine ER 500 MG 1 tablet Orally Twi ce a day for 30 day(s) Active IMMUNIZATIONS Vaccine Route Administration Date Status Comme nts Influenza Unknown 12/27/2018 Administered Influenza Unknown 12/21/2018 Administered Influenza Unknown 01/06/2022 Administered Influenza Unknown 02/09/2023 Administered SOCIAL HISTORY Tobacco Use: Social History [...] Problem Colon cancer screening (Z12.11) Active confirmed 215974938 Problem Rectal bleeding (K62.5) Active confirmed 04235391 Problem Left lower quadrant pain (R10.32) Active confirmed 608286155 Problem Other cirrhosis of liver (K74.69) Active confirmed 22466744 Problem Chronic hepatitis C without hepatic coma (B18.2) Active confirmed 241379965 Problem Abnormal x-ray of liver (R93.2) Active confirmed 752619647 Problem Liver mass (R16.0) Active confirmed 843341402 Problem Pancreatic cyst (K86.2) Active confirmed 89883126 Problem 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) Active confirmed 7898684466390970 Problem Liver lesion (K76.9) Active confirmed 193341833 Problem Focal nodular hyperplasia of liver (K76.89) Active confirmed 908835655 Problem Elevated liver function tests (R94.5) Active confirmed 815062493 Problem Kidney cysts (N28.1) Active confirmed 718205821 VITAL SIGNS Temperature 97.8 degrees Fahrenheit 03/06/2024 Blood pressure diastolic 00 mm Hg 03/06/2024 Height 73.5 in 03/06/2024 Blood pressure systolic 000 mm Hg 03/06/2024 Weight 240 lb 6 oz lbs 03/06/2024 BMI 31.28 kg/m2 03/06/2024 Encounters Encounter Location Date Provider Diagnosis [facility] [address] [place] [address] 12/01/2023 Power Barrera Jr [facility] [address] [place] [address] 03/06/2024 Power Barrera Jr Cedeno's esophagus with dysplasia K22.719 ; Colon cancer screening Z12.11 ; Other cirrhosis of liver K74.69 and Abnormal x-ray of liver R93.2 [facility] [address] [place] [address] 12/01/2023 Power Barrera Jr [facility] [address] [place] [address] 03/06/2024 Power Barrera Jr Liver lesion K76.9 ; Pancreatic cyst K86.2 and Kidney cysts N28.1 ASSESSMENTS Encounter Date Diagnosis Assessment Notes Treatment Notes Treatment Clinical Notes 03/06/2024 Colon cancer screening (ICD-10 - Z12.11) 03/06/2024 Cedeno's esophagus with dysplasia (ICD-10 - K22.719) Cedeno esophagus material was printed 03/06/2024 Pancreatic cyst (ICD-10 - K86.2) 03/06/2024 Liver lesion (ICD-10 - K76.9) 03/06/2024 Other cirrhosis of liver (ICD-10 - K74.69) 03/06/2024 Kidney cysts (ICD-10 - N28.1) 03/06/2024 Abnormal x-ray of liver (ICD-10 - R93.2) PLAN OF TREATMENT Pending Test Test Name Order Date BUN 05/26/2019 BUN 03/06/2024 BUN 01/26/2020 BUN 03/30/2022 CREATININE 03/30/2022 CREATININE 05/26/2019 CREATININE 01/26/2020 CREATININE 03/06/2024 LIVER PROFILE 03/30/2022 LIVER PROFILE 04/23/2022 LIVER [...] W&WO CONTRAST 05/26/2019 MRI ABD W&WO CONTRAST 03/06/2024 MRI ABD W&WO CONTRAST 01/26/2020 MRI ABD W&WO CONTRAST 03/30/2022 US ABD 06/07/2019 US ABD 09/20/2019 HEPATITIS B CORE ANTIBODY 03/29/2019 HEPATITIS A ANTIBODY-IGG 03/29/2019 HCV LIVER FIBROSIS, FIBRO TEST 0 Future Test Test Name Order Date COLONOSCOPY 08/15/2014 COLONOSCOPY 09/14/2018 UPPER GI ENDOSCOPY 03/30/2022 COLONOSCOPY 03/30/2022 UPPER GI ENDOSCOPY 04/23/2022 Next Appt Details Provider Name:Power hall , 03/07/2025 11:10:00 AM, [address] [place] [address], [address], [place], [address], Insurance Providers Payer Name Payer Address Payer Phone Subscriber Number Group Number Insured Name Patient Relationship to Insured Coverage Start Date Coverage End Date MEDICARE OF [place] [address] [place] [address] [id number] KAHLIL SIM Self - patient is the insured MEDICAID OF [facility] [address] [place] [address] [id number] KAHLIL SIM Self - patient is the insured MEDICAL (GENERAL) HISTORY Medical History History ICD Code Colon polyps, colonoscopy 04/13, multiple adenomas, three-year followup hepatitis C, F4 fibrosis, status post [place] rvoni x12 weeks with SVR hypertension depression back pain Hyperlipidemia coronary artery disease, NC 12/2017, ross nt placement leg numbness. anemia COPD XAVIER/CPAP kidney stones Cedeno's esophagus, EGD 03/23 3, indefinite to low-grade dysplasia, followup EGD 11/11, and no dysplasia on biopsy or WATS, 2 year followup Atrial fibrillation Surgical History Surgery Date(Month/Year) eye surgery, left eye blindness thyroid surgery Coronary artery stent placement 12/2017 back surgery 2017 cardioversion x 2 Hospitalization History Reason Date(Month/Year) Right upper lobectomy 05/2021 a fib x 3
--- OUTSIDE RECORDS SUMMARY | 2024-03-24 09:19 | XMS_ITS ---
Author Organization [facility] Address [address] [place] [address] Care Team Providers Care Associate Professor Of Music Name Role Phone Kojo Fermin MD Primary Care Provider Power De La Torre Jr Unavailable [phone] ALLERGIES No Known Allergies REASON FOR VISIT Patient presents today for barretts esophagus MEDICATIONS Medication SIG (Take, Route, Frequency, Duration) Notes Start Date End Date Status Vitamin B-12 1000 MCG TAKE 1 TABLET BY M OUTH IN THE MORNING Oral for 90 Active Trelegy Ellipta 200-62.5-25 MCG/ACT Inhalation for 90 Active Digoxin 125 MCG Oral for 30 Ac tive Colchicine 0.6 MG Oral for 20 Active Allopurinol 100 MG Oral for 90 Active Magnesium Oxide 400 MG TAKE 1 TABLET BY MOUTH ONCE DAILY Oral for 30 Active Famotidine 40 MG Take 1 tablet by rommel th twice daily for 90 Active Vitamin B12 500 as directed Orally O nce a day Active Incruse Ellipta 62.5 MCG/INH 1 puff Inha lation Once a day Active Ranolazine ER 500 MG 1 tablet Orally Twi ce a day for 30 day(s) Active Atorvastatin Calcium 40 MG 1 tablet Oral ly Once a day for 30 day(s) Active Pramipexole Dihydrochloride 0.125 MG 2 tablet Orally Once a day Active Aspirin 81 MG 1 tablet Orally Once a day Active Metoprolol Tartrate 50 MG 1 tablet with food Oral Twice a day Active [place] 3 1000 MG 1 capsule Orally Onc e a day for 30 day(s) Active Lisinopril 40 MG 1 tablet Oral Once a day Active amLODIPine Besylate 10 MG 1 tablet Orall y Once a day Active Gabapentin 600 MG as directed Orally tid Active Eliquis 5 MG as directed Orally Active SOCIAL HISTORY Tobacco Use: Social History [...] W/U Status Risk SNOMED Code Notes Problem Abnormal x-ray of liver (R93.2) Active confirmed 890583783 VITAL SIGNS BMI 31.28 kg/m2 03/06/2024 Blood pressure systolic 000 mm Hg 03/06/20 24 Blood pressure diastolic 00 mm Hg 024 Height 73.5 in 03/06/2024 Temperature 97.8 degrees Fahrenheit 03/06/20 24 Weight 240 lb 6 oz lbs 03/06/2024 Encounters Encounter Location Date Provider Diagnosis [facility] [address] [place] [address] 03/06/2024 Power Barrera Jr Cedeno's esophagus with dysplasia K22.719 ; Colon cancer screening Z12.11 ; Other cirrhosis of liver K74.69 and Abnormal x-ray of liver R93.2 ASSESSMENTS Encounter Date Diagnosis Assessment Notes Treatment Notes Treatment Clinical Notes 03/06/2024 Cedeno's esophagus with dysplasia (ICD-10 - K22.719) Cedeno esophagus material was printed 03/06/2024 Colon cancer screening (ICD-10 - Z12.11) 03/06/2024 Other cirrhosis of liver (ICD-10 - K74.69) 03/06/2024 Abnormal x-ray of liver (ICD-10 - R93.2) PLAN OF TREATMENT Treatment Notes Assessment Notes Cedeno's esophagus with dysplasia [place] tt esophagus material was printed Next Appt Details Follow Up: 1 Year, Reason: Provider Name:Power hall Jr, 03/07/2025 11:10:00 AM, [address] [place] [address], [address], [place], [address],
[2024-03-24] MEDS: gadobutroL 10 ML VIAL IVPUSH (10:16)
== END 2024-03-24 09:01 | disposition home or self-care (01) ==
LOC: HO.MRI 09:00
PROVIDERS: PCP Internal Medicine; Visit Provider Internal Medicine Gastroenterology
DX: K76.9 Liver disease, unspecified (principal); K86.2 Cyst of pancreas; N28.1 Cyst of kidney, acquired
CPT/HCPCS: 74183; A9585

== ENCOUNTER → 2024-03-24 09:25 | Outpatient (BNV) | payer MEDICARE, MEDICAID, SELFPAY | PROVIDERS: PCP Internal Medicine; Visit Provider Radiology Diagnostic Radiology | DX: K76.9 Liver disease, unspecified (principal) | CPT/HCPCS: 74183 ==

== ENCOUNTER → 2024-05-01 08:44 | Outpatient (REF) | payer MEDICARE, BC, SELFPAY | LOC: HO.CARD 08:44 | PROVIDERS: PCP Internal Medicine; Visit Provider Internal Medicine Cardiovascular Disease | DX: I35.0 Nonrheumatic aortic (valve) stenosis (principal) | CPT/HCPCS: 93306 ==

== ENCOUNTER → 2024-05-01 08:51 | Outpatient (BNV) | payer MEDICARE, BC, SELFPAY | PROVIDERS: PCP Internal Medicine; Visit Provider Internal Medicine Cardiovascular Disease | DX: I35.0 Nonrheumatic aortic (valve) stenosis (principal) | CPT/HCPCS: 93306 ==

== ENCOUNTER 2024-05-04 12:38 | Outpatient (AMB) | payer MEDICARE, MEDICAID, SELFPAY ==
--- NOTE | 2024-05-04 12:40 | MHC.OFFVIS ---
Vital Signs 05/04/24 12:41 Height 6 ft Weight 238 lb 1.588 oz BMI 32.3 BP 118/78 Blood Pressure Location Lt brachial Position Sitting Pulse 108 H Intake Visit Reasons: 4 mth f/up echo/ holter Intake Note: 4 month follow-up after echo and holter with ekg Suction Operator Required: No [employer] Leader: [employer] Group Leader Present Accompanied by: Spouse Allergies No Known Allergies [No Known Allergies*] Allergy (Verified 01/12/24 03:55) Medication List - Last Reconciled 05/04/24 by Danilo Em MD acetaminophen 650 mg (2 x 325 mg) PO Q6H PRN albuterol sulfate 90 mcg/actuation 2 puffs inhalation QID PRN allopurinol 100 mg PO DAILY amlodipine 10 mg PO DAILY apixaban (Eliquis) 5 mg PO BID aspirin 81 mg PO DAILY atorvastatin 40 mg PO DAILY cholecalciferol (vitamin D3) (Vitamin D3) 25 mcg PO DAILY cyanocobalamin (vitamin B-12) (Vitamin B-12) 500 mcg PO DAILY famotidine 40 mg PO BID josanvbrpoh-dwrsrafff-bbbkjelr 200-62.5-25 mcg (Trelegy Ellipta) 1 ea inhalation DAILY gabapentin 600 mg PO BID ipratropium-albuterol 0.5 mg-3 mg(2.5 mg base)/3 mL 3 mL inhalation QID PRN magnesium oxide 400 mg PO BIDWM omega-3 acid ethyl esters 2 caps PO BID HPI Comments Details: Ag comes for follow-up. He underwent atrial fibrillation ablation on April 11 with pulmonary vein isolation with PFA as well as posterior wall isolation using PFA. He said he feels lot better in his symptoms of shortness of breath and fatigue have improved but he said his significant symptoms right now has bilateral muscular discomfort from buttocks on would downward in both his ex lower extremity, right greater than left. Does not get those symptoms when he is standing for long period of time. Symptoms only with exertion which limits his activity level. He is scheduled to see vascular surgery soon. Patient was also scheduled to see EPS in the near future. He complains of symptoms of rapid heart rate especially at nighttime but not as bad as before. He is taking all his medications including Eliquis and aspirin. He is currently on amlodipine for blood pressure. His most recent echocardiogram shows normal LV ejection fraction with moderate LVH with restrictive filling defect with severely dilated left atrium and moderate aortic stenosis. Denies any orthopnea, PND, leg edema. Currently not taking digoxin. [facility] Medical History Atrial flutter CAD (coronary artery disease) Atrial fibrillation Junctional bradycardia COVID-19 Blindness of left eye History of eye prosthesis Thyroid disease GERD (gastroesophageal reflux disease) Numbness On beta patrick at home On anticoagulant therapy Murmur PVD (peripheral vascular disease) Myocardial infarction Alcohol dependence Post laminectomy syndrome Asthma Renal stones COPD (chronic obstructive pulmonary disease) Anemia Hepatitis C Hyperlipidemia HTN (hypertension) SVT (supraventricular tachycardia) Surgical History Hx of eye surgery History of esophagogastroduodenoscopy (EGD) H/O colonoscopy S/P lobectomy of lung (~05/2021) Stented coronary artery Hx of thyroidectomy History of back surgery Hx of cardiac cath Family History Father Cancer Mother CVD (cardiovascular disease) Social History Household Members: None Housing: Apartment Are you a primary palliative care physician to a significant other at home: No Do you presently have visiting nurse or other home services: No Alcohol intake: current Alcohol intake frequency: 0-2 drinks per day Alcohol type: hard liquor Patient Tobacco Use Status: Former Tobacco user Tobacco use type: Cigarette Cigarette Packs Per Day: 1 Cigarettes Per Day: 20.0 Years Smoked: 40 Second Hand Smoke Exposure: No Substance Use Type: Marijuana Advance Directives Date on File: 09/09/23 service: No Review of Systems Const Denies chills, Denies fatigue, Denies fever(s), Denies frequent falls, Denies weakness, Denies weight gain and Denies weight loss ENT Denies dizziness Card Denies chest pain, Denies leg edema, Denies lightheadedness, Denies palpitations, Denies dyspnea, Denies dyspnea on exertion, Denies orthopnea and Denies other (loss of consciousness) Resp Denies cough, Denies dyspnea and Denies dyspnea on exertion GI Denies hematochezia and Denies change in stool character Musc Denies abnormal gait, Denies muscle weakness, Denies numbness, Denies radiating pain into limb and Denies tingling Neuro Denies abnormal gait, Denies dizziness, Denies frequent falls, Denies numbness, Denies tingling and Denies weakness Endo Denies fatigue and Denies palpitations Physical Exam Vital Signs: Last Vital Signs Pulse 108 H 05/04/24 12:41 BP 118/78 05/04/24 12:41 BMI result Body Mass Index 32.3 Const General: cooperative, comfortable, no acute distress, alert and awake Nutritional Appearance: overweight Orientation/consciousness: patient oriented x3 Limitations: no limitations Neck Neck: Yes trachea midline and Yes no JVD Resp Effort & Inspection: normal respiratory effort Auscultation: clear to auscultation bilaterally Cardio Jugular venous distension: no JVD Palpation: normal PMI Rate: regular rate and tachycardic Heart sounds: S1 normal heart sound present, S2 normal heart sound present, no click, no gallops, Murmur heart sound present systolic mid and no rubs GI Auscultation: normal bowel sounds Skin General skin exam: ecchymosis Neuro General: patient oriented x3 and no focal motor deficits Extrem General: Yes no clubbing, cyanosis or edema Office Procedures EKG Details: EKGs suggestive of ectopic atrial tachycardia at 108 beats per minute with prolonged AV conduction with inferior Q-waves as well as poor R-wave progression with nonspecific ST T wave changes [id number], Complete Assessment & Plan Assessment & Plan (1) Paroxysmal atrial fibrillation: Code(s): I48.0 - Paroxysmal atrial fibrillation Category: Medical Plan: Paroxysmal atrial fibrillation this elderly gentleman status post recent ablation. His symptoms of palpitation atrial fibrillation with shortness of breath have improved. However he has presented with ectopic atrial tachycardia, see below. Has failed rhythm control approach with other options with significant left atrial enlargement. Remains at risk for other forms of atrial arrhythmias. For now continue full oral anticoagulation Eliquis. Avoidance of stimulants was discussed. Cessation of alcohol use was discussed. (2) CAD (coronary artery disease): Code(s): I25.10 - Atherosclerotic heart disease of [place] coronary artery without angina pectoris Category: Medical Plan: CAD with prior inferior [place] with RCA stenting. Continue high-intensity statin therapy. Currently also on aspirin therapy. Blood pressure is adequately optimized. Will switch his amlodipine to Cardizem therapy. Advised to monitor blood pressure at home maintain a log. Goal blood pressure less than 130/84. Goal LDL less than 70 mg/dL. He is having significant bilateral lower extremity discomfort, has follow-up with vascular surgery. Will try to he is in his clinical visit to assess for significant ischemia. Currently given both aspirin Eliquis and significant ecchymosis will avoid using additional therapy such as cilostazol. May require further interventions from surgical perspective. (3) Aortic stenosis: Code(s): I35.0 - Nonrheumatic aortic (valve) stenosis Category: Medical Plan: Aortic stenosis which is moderate. Will follow clinically and by echocardiogram on annual basis. Continue aggressive vascular risk factor modifications above. Given his LVH and restrictive filling defect with left atrial enlargement and atrial fibrillation with lumbar spinal stenosis, concern for amyloidosis. Will schedule for serum any urine electrophoresis as well as PYP scan. (4) Ectopic atrial tachycardia: Code(s): I47.19 - Other supraventricular tachycardia Category: Medical Plan: EKG today suggestive of ectopic atrial tachycardia. Will switch his amlodipine therapy to Cardizem therapy. Avoidance of stimulants which alcohol was discussed. Consider switching to Xopenex therapy for his pulmonary bronchodilators therapy. Stress mitigation strategies were discussed. Will follow up in the clinic in 2 months time after Holter monitor. Thank you for allowing me to partake in his care Medications: Discontinued digoxin Discontinued Reason: Patient no longer taking 125 mcg PO DAILY 30 tabs 5RF Coding Level of Care Code Est Pt Level 5 (94677) Complex EM visit Add On G2211 Diagnoses Paroxysmal atrial fibrillation I48.0 CAD (coronary artery disease) I25.10 Aortic stenosis I35.0 Ectopic atrial tachycardia I47.19 CPT Codes EKG - CPT: 55698-[id number], Complete ([id number])
[2024-05-04 12:41] VITALS: BP 118/78; PULSE 108; BMI 32.3
--- OUTSIDE RECORDS SUMMARY | 2024-05-04 12:42 | XMS_ITS ---
Author Organization [facility] Address [address] [place] [phone] Care Team Providers Care Restaurant Cashier Name Role Phone Kojo Fermin MD Primary Care Provider Power De La Torre Jr Unavailable [phone] ALLERGIES No Known Allergies REASON FOR VISIT [...] with food Oral Twice a day Active [place] 3 1000 MG 1 capsule Orally Onc [...] Abnormal x-ray of liver (R93.2) Active confirmed 226724305 VITAL SIGNS BMI 31.28 kg/m2 03/06/2024 Blood pressure systolic 000 mm Hg 03/06/20 24 Blood pressure diastolic 00 mm Hg 024 Height 73.5 in 03/06/2024 Temperature 97.8 degrees Fahrenheit 03/06/20 24 Weight 240 lb 6 oz lbs 03/06/2024 Encounters Encounter Location Date Provider Diagnosis [facility] [address] [facility] [address] [place] [phone] 03/06/2024 Power Barrera Jr Cedeno's esophagus with [...] Notes Assessment Notes Cedeno's esophagus with dysplasia [place] tt esophagus material was printed Next Appt Details Follow Up: 1 Year, Reason: Provider Name:Power hall Jr, 03/07/2025 11:10:00 AM, [address] [place] [address], [address], [place], [address],
--- OUTSIDE RECORDS SUMMARY | 2024-05-04 12:42 | XMS_ITS ---
Author Organization [facility] Address [address] [place] [address] Care Team Providers Care Cell Operator Name Role Phone Kojo Fermin MD Primary Care Provider Power De La Torre Jr REASON FOR VISIT MRI PROBLEMS Problem Type ICD Code Onset Dates Problem Status W/U Status Risk SNOMED Code Notes Problem Liver lesion (K76.9) Active confirmed 579155914 Problem Pancreatic cyst (K86.2) Active confirmed 22109980 Problem Kidney cysts (N28.1) Active confirmed [id number] Encounters Encounter Location Date Provider Diagnosis [facility] [address] [place] [address] 03/06/2024 Power Barrera Jr Liver lesion K76.9 [...] 11:10:00 AM, [address], [address], [place], [address],
--- OUTSIDE RECORDS SUMMARY | 2024-05-04 12:42 | XMS_ITS | Clinical Summary ---
Author Organization [facility] Address [address] [place] [address] Phone Care Team Providers Care Clean Rice Broker Name Role Phone Kojo Fermin MD Primary Care Provider Allergies No known active allergies Medications albuterol HFA (PROAIR HFA ; PROVENTIL HFA ; VENTOLIN HFA) 90 mcg/actuation inhaler Inhale 2 puffs by mouth. 8 Active amLODIPine (NORVASC) 10 mg tablet Take 1 tablet (10 mg total) by mouth 1 (one) time each day. Active apixaban (ELIQUIS) 5 mg tablet Take by mouth. Active aspirin 81 mg EC tablet Take 1 tablet (81 mg total) by mouth 1 (one) time each day. Active atorvastatin (LIPITOR) 40 mg tablet Take 1 tablet (40 mg total) by mouth 1 (one) time each day. 0 Active famotidine (PEPCID) 40 mg tablet Take 1 tablet (40 mg total) by mouth at bedtime. 1 Active fluticasone-umecl idinium-vilantero l (Trelegy Ellipta) 200-62.5-25 mcg inhaler Inhale 1 puff (200 mcg total) by mouth 1 (one) time each day. 2 Active gabapentin (NEURONTIN) 600 mg tablet Take 1 tablet (600 mg total) by mouth. 1 Active ipratropium-albut Brain (DUONEB) 0.5-2.5 mg/3 mL nebulizer solution Inhale 3 mL by mouth. 9 Active mv-min/folic/vit K/lycop/coQ10 (DAILY MULTIVITAMIN ORAL) 1 tablet 1 (one) time each day. Active nitroglycerin (NITROSTAT) 0.[address] 1 tablet (0.4 mg total) under the tongue. 9 Active omega-3 acid ethyl esters (LOVAZA) 1 gram capsule Take 2 capsules (2 g total) by mouth. 9 Active ranolazine (RANEXA) 500 mg 12 hr tablet Take 1 tablet (500 mg total) by mouth 2 (two) times a day. FOR 30 DAYS 9 Active lisinopriL (ZestriL) 20 mg tablet Take 1 tablet (20 mg total) by mouth 1 (one) time each day. 9 Active Active Problems Problem Noted Date Diagnosed Date Pulmonary nodule 04/22/2021 Overview (02/27/2024): Last Assessment & Plan: Mr. Nichole is a 66 yr. male who presents for a follow-up visit after their recent chest CT surveillance scan which occurred on July 31, 2021. On June 17, 2021 had a navigational bronchoscopy with dye marking followed by robotic right upper lobectomy. Patient informs me that he continues to have some significant dyspnea on exertion and shortness of breath since having his right upper lobectomy. 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 Patient is a former smoker with a 56-umib-cmip history. He states during ambulation he has to take very frequent breaks due to feeling winded . He continues to have some discomfort along his surgical incisional sites however he states that it is manageable. While patient was in office reviewed his most recent chest CT scan which was performed at [facility] on July 31, 2021 and shows chronic clustered 3 to 4 mm groundglass opacities in the left upper lobe, stable posterior calcified pleura and stable 2 to 3 mm calcified granulomas in left lower lobe, there is a small right pleural effusion with atelectasis posterior right lower lobe and some fluid tracking to the minor fissure along with slight elevation of right hemidiaphragm. Which is likely postoperative. There is no suspicious pulmonary nodule or mediastinal lymphadenopathy noted. Patient was informed due to his lack of suspicious pulmonary nodules and significant smoking history he would be referred to the lung cancer screening program for yearly LDCT scans of the chest. Also referring patient to pulmonary rehab for patient reporting significant dyspnea on exertion. Placing referral to pulmonology for stable clustered small groundglass opacities which are chronic in left upper lobe which may be contributing to patient's shortness of breath. Patient was instructed to contact the thoracic surgical department moving forward on a as needed basis. HTN (hypertension) 05/31/2008 Tobacco use disorder 04/18/2008 Vision loss 04/18/2008 Overview (02/27/2024): Blind in left eye Immunizations Name Administration Dates Next Due Tdap Tetanus diptheria acell ular pertussis (Boostrix; Adacel) 7yo and older 04/18/2008 Surgical History Surgery Date Site/Laterality Comments OTHER SURGICAL HISTORY PROCEDURE: HISTORICAL SUBTOTAL THYROIDECTOMY; COMMENT: Benign thyroid nodule COLONOSCOPY 06/05/08 PROCEDURE: IL COLONOSCOPY STOMA DX INCLUDING COLLJ SPEC SPX; COMMENT: Up to cecum, ascending polyp removed:Adenomatous, Hepatic flexure polyp removed:TA, Sigmoid polyp removed:Hyperplastic. NOT removed 1 polyp at asceding and 2 polyps at transverse OTHER SURGICAL HISTORY PROCEDURE: IL RADIAL KERATOTOMY; COMMENT: left eye Medical History Medical History Date Comments Unspecified disorder of thyroid DX:Unspecified disorder of thyroid Amblyopia, unspecified DX:Amblyo gauri, unspecified; COMMENT: left Historical Medical DX 05/31/2008 DX:HTN Historical Medical DX 05/31/2008 DX:HTN Family History Medical History Relation Name Comments Lung cancer Father Heart attack Mother Diet age 38 Blindness Uncle Cataracts Uncle Glaucoma Neg Hx Macular degeneration Neg Hx Strabismus Neg Hx Relation Name Status Comments Brother 1 Alive Brother 2 Alive Brother 3 Alive Father Mother Sister Alive Uncle Social History Tobacco Use Types Packs/Day Years Used Date Smoking Tobacco: Former Cigarettes 1 0.9 0 03/22/2006 - 02/19/2007 Alcohol Use Standard Drinks/Week Comments Yes 20.8 (1 standard drink = 0.6 oz pure alcohol) Sex and Gender Information Value Date Recorded Sex Assigned at Not on file Legal Sex Male 9:34 AM EST Gender Identity Not on file Sexual Orientation Not on file Obstetrics History Last Filed Vital Signs Vital Sign Reading Time Taken Comments Blood Pressure 124/76 11/29/2023 9:15 AM EDT Sitting L Arm Pulse 78 11/29/2023 9:15 AM EDT Temperature - - Respiratory Rate - - Oxygen Saturation - - Inhaled Oxygen Concentration - - Weight 107 kg (236 lb 3.2 oz) 9:15 AM EDT Height 182.9 cm (6') 11/29/2023 9:15 AM EDT Body Mass Index 32.03 11/29/2023 9:15 AM EDT Plan of Treatment Upcoming Encounters Date Type Department Care Team (Late st Contact Info) Description 05/29/2024 8:45 AM EDT Office Visit Pulmonolgy - [place] [address] [facility] [address] [place] [address] Canelo Valles MD [address] [address] [place] [address] Health Maintenance Due Date Last Done Comments Pneumococcal Vaccine: 50+ Ye ars (1 of 2 - PCV) 1973 Zoster Vaccines (1 of 2) 01/08/2004 RSV Immunization Patients 60 + Years Old (1 - Risk 60-74 years 1-dose series) 2014 DTaP,Tdap,and Td Vaccines (2 - Td or Tdap) 04/18/2018 04/18/2008 Colorectal Cancer Screening: Colonoscopy 03/01/2022 Depression Screening 03/01/2022 Falls Risk Assessment 03/01/2022 Hepatitis C Screening 03/01/2022 Medicare Annual Wellness Visit 03/01/2022 Social Influencers of Health Screening 03/01/2022 COVID-19 Vaccine (1 - 2023-2 5 season) 2023 Influenza Vaccine (#1) 2023 Hypertension/CHF/CAD Annual BMP Blood Test 05/07/2024 05/07/2023 Cholesterol Screening (Lipid Panel) 01/15/2028 01/14/2023 Abdominal Aortic Aneurysm (A AA) Screen Completed 08/02/2008 HIB Vaccines Aged Out No longer eligi ble based on patient's age to complete this topic HPV Vaccines Aged Out No longer eligi ble based on patient's age to complete this topic Hepatitis A Vaccines Aged Out No long er eligible based on patient's age to complete this topic Hepatitis B Vaccines Aged Out No long er eligible based on patient's age to complete this topic IPV Vaccines Aged Out No longer eligi ble based on patient's age to complete this topic MMR Vaccines Aged Out No longer eligi ble based on patient's age to complete this topic Meningococcal ACWY Vaccine Aged Out N o longer eligible based on patient's age to complete this topic Meningococcal B Vacine Aged Out No lo nger eligible based on patient's age to complete this topic RSV Immunization Patients Un lanre 20 months Aged Out No longer eligible b ased on patient's age to complete this topic Varicella Vaccines Aged Out No longer eligible based on patient's age to complete this topic Procedures Procedure Name Priority Date/Time Associated Diagnosis Comments ANNUAL BMP BLOOD TEST Routine 05/07/2023 LIPID PANEL Routine 01/14/2023 ABDOMINAL AORTIC ANEURYSM SCRREN Routine 08/02/2008 from Last 3 Months or Most Recently Relevant to Health Maintenance Results * Annual BMP Blood Test (05/07/2023) Annual BMP Blood Test abstracted [facility] Provider HEALTH MAINTENANCE Final Result * Lipid panel (01/14/2023) Pathologist [facility] LDL/HDL Ratio 0 0 - 0 Triglycerides 0 0 - 0 mg/dL Cholesterol 0 0 - 0 mg/dL HDL 0 0 - 0 mg/dL LDL Cholesterol 0 0 - 0 mg/dL Blood Venous blood specimen / Unknown [facility] Provider LAB BLOOD ORDERABLES Terese l Result * Abdominal Aortic Aneurysm Screen (08/02/2008) Pathologist [facility] Abdominal Aortic Aneurysm (AAA) Screening abstracted Anatomical Region Laterality Modality Other [facility] Provider HEALTH MAINTENANCE Final Result from Last 3 Months or Most Recently Relevant to Health Maintenance Insurance MEDICARE MEDICAID - [place] Advance Directives Documents on File Type Date Recorded 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 Health Care Decision (hx) 06/20/2021 AD HURTADO DIRECTIVE Health Care Decision (hx) 06/20/2021 AD HURTADO DIRECTIVE Health Care Decision (hx) 06/20/2021 AD HURTADO DIRECTIVE Health Care Decision (hx) 06/20/2021 AD HURTADO DIRECTIVE Health Care Decision (hx) 06/20/2021 AD HURTADO DIRECTIVE Health Care Decision (hx) 06/20/2021 AD HURTADO DIRECTIVE Health Care Decision (hx) 06/20/2021 AD HURTADO DIRECTIVE Health Care Decision (hx) 06/18/2021 AD HURTADO DIRECTIVE Health Care Decision (hx) 06/18/2021 AD HURTADO DIRECTIVE Health Care Decision (hx) 06/18/2021 AD HURTADO DIRECTIVE Health Care Decision (hx) 06/18/2021 AD HURTADO DIRECTIVE Health Care Decision (hx) 06/18/2021 AD HURTADO DIRECTIVE Health Care Decision (hx) 06/18/2021 AD HURTADO DIRECTIVE Health Care Decision (hx) 06/18/2021 AD HURTADO DIRECTIVE Care Teams Clean Rice Broker Relationship Specialty Start Date End Date Kojo Fermin MD [address] [place] [address] PCP - General Internal Medicine 03/27/21
--- OUTSIDE RECORDS SUMMARY | 2024-05-04 12:42 | XMS_ITS | Patient Health Record ---
Author Organization [facility] Address [address] [place] [address] Care Team Providers Care Stretch Machine Operator Name Role Phone Kojo Fermin MD Primary Care Provider Teresitaa Power Dunbar Jr Unavailable [phone] ALLERGIES No Known Allergies RESULTS Component Value Reference Range Notes MR abdomen wo/w con Reviewed date:03/28/2024 02:59:50 PM Interpretation: Performing Lab: Notes/Report: [address] [address] Magnetic Resonance Report Signed Patient: Shane Sim MR#: [id number] : 1955 Acct:[id number] Age/Sex: 69 / M ADM Date: 03/24/24 Loc: HO.MRI Attending Dr: Power Barrera MD Ordering Physician: Power Barrera MD Date of Service: 03/24/24 Procedure(s): MR abdomen wo/w con Accession Number(s): [id number] cc: Kojo Fermin MD; Power Barrera MD EXAMINATION: MRI Abdomen without and with contrast HISTORY: LIVER LESION, PANCREATIC KIDNEY CYST COMPARISON: Comparison is made with the prior examination dated 04/06/2022. TECHNIQUE: Axial in and out of phase T1-weighted gradient echo, axial diffusion weighted, and axial and coronal haste T2 with fat saturation images were obtained through the abdomen. 3D MRCP Reconstructed images and thick slab imaging of the biliary tree were obtained. Subsequently, fat suppressed axial and coronal T1-weighted images were obtained after the intravenous administration of 10 mL Gadavist. FINDINGS: There is moderate diffuse loss of signal intensity within the liver on opposed phase imaging, consistent with steatosis. Again seen are numerous hepatic cysts including a 3.4 cm cyst in the left lobe and a 3.2 cm cyst in the inferior right lobe, which demonstrates thin septations. Again seen is a 2.3 cm enhancing mass in the left lobe (series 17, image 40), without change. No additional enhancing liver mass is identified. The hepatic and portal veins are patent. There is no intra or extrahepatic biliary ductal dilatation. There is cholelithiasis. Again seen is a tiny 2-3 mm cyst in the body of the pancreas without change. There may be an additional smaller cyst in the tail. No enhancing pancreatic mass is identified. The spleen is unremarkable. Again seen is a 10 mm right adrenal nodule without definite loss of signal intensity on opposed phase imaging. The left adrenal gland is unremarkable. Again noted are multiple bilateral renal cysts, many of which demonstrate septations. The previously seen more complex appearing right renal cyst is not definitely identified. No retroperitoneal lymphadenopathy or ascites is identified in the upper abdomen. MR/MR abdomen wo/w con IMPRESSION: 1. Hepatic steatosis. Cholelithiasis. Stable 10 mm nonspecific right adrenal mass. 2. Stable 2.3 cm enhancing mass in the left lobe of the liver. 3. Stable tiny 2-3 mm cysts in the pancreas. These could be followed with MRI in 12 months. 4. Multiple hepatic and bilateral renal cysts, many of which demonstrate thin septations. These could also be followed-up at the time of follow-up of the pancreatic lesions. The previously seen more complex appearing right renal lesion is not definitely identified. Electronically signed by: Kenny Peter MD 03/27/2024 11:41 AM [facility] Dictated By: Kenny Peter MD Signed By: <Electronically signed by Kenny Peter MD in OV> 03/27/24 1141 DD/ 0925 TD/TT: 03/24/24 1000 Shredding Specialist: REASON FOR REFERRAL No Information MEDICATIONS Medication [...] directed Orally O nce a day Active [place] 3 1000 MG 1 capsule Orally Onc [...] Problem Colon cancer screening (Z12.11) Active confirmed 638365676 Problem Rectal bleeding (K62.5) Active confirmed 56094338 Problem Left lower quadrant pain (R10.32) Active confirmed 518969368 Problem Other cirrhosis of liver (K74.69) Active confirmed 85146271 Problem Chronic hepatitis C without hepatic coma (B18.2) Active confirmed 066737178 Problem Abnormal x-ray of liver (R93.2) Active confirmed 791081188 Problem Liver mass (R16.0) Active confirmed 711114851 Problem Pancreatic cyst (K86.2) Active confirmed 68296908 Problem 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) Active confirmed 8942849374125224 Problem Liver lesion (K76.9) Active confirmed 073587182 Problem Focal nodular hyperplasia of liver (K76.89) Active confirmed 532991132 Problem Elevated liver function tests (R94.5) Active confirmed 457321773 Problem Kidney cysts (N28.1) Active confirmed 865095817 VITAL SIGNS Temperature 97.8 degrees Fahrenheit 03/06/2024 Blood pressure diastolic 00 mm Hg 03/06/2024 Height 73.5 in 03/06/2024 Blood pressure systolic 000 mm Hg 03/06/2024 Weight 240 lb 6 oz lbs 03/06/2024 BMI 31.28 kg/m2 03/06/2024 Encounters Encounter Location Date Provider Diagnosis [facility] [address] [place] [address] 12/01/2023 Power Barrera Jr [facility] [address] [place] [address] 03/06/2024 Power Barrera Jr Cedeno's esophagus with dysplasia K22.719 ; Colon cancer screening Z12.11 ; Other cirrhosis of liver K74.69 and Abnormal x-ray of liver R93.2 [facility] [address] [place] [address] 12/01/2023 Power Barrera Jr [facility] [address] [place] [address] 03/06/2024 Power Barrera Jr Liver lesion K76.9 ; Pancreatic cyst K86.2 and Kidney cysts N28.1 [facility] [address] [place] [address] 03/28/2024 Power Barrera Jr ASSESSMENTS Encounter Date Diagnosis [...] Order Date BUN 05/26/2019 BUN 01/26/2020 BUN 03/06/2024 BUN 03/30/2022 CREATININE 03/30/2022 CREATININE 05/26/2019 CREATININE [...] ENDOSCOPY 04/23/2022 Next Appt Details Provider Name:Power Zulma hall Jr, 03/07/2025 11:10:00 AM, [address], [address], [place], [address], Insurance Providers Payer Name Payer Address Payer Phone Subscriber Number Group Number Insured Name Patient Relationship to Insured Coverage Start Date Coverage End Date MEDICARE [place] [address] [place] [address] [phone] [id number] SHANE SIM Self - patient is the insured MEDICAID OF [employer] [address] [place] [address] [phone] [id number] SHANE SIM Self - patient is the insured MEDICAL (GENERAL) HISTORY Medical History History ICD Code Colon polyps, colonoscopy 04/13, multiple adenomas, three-year followup hepatitis C, F4 fibrosis, status post Pastrana rvoni x12 weeks with SVR hypertension depression back pain Hyperlipidemia coronary artery disease, [place] 12/2017, ross nt placement leg numbness. anemia [...]
--- OUTSIDE RECORDS SUMMARY | 2024-05-04 12:42 | XMS_ITS ---
Author Organization [facility] Address [address] [place] [address] Care Team Providers Care Estate Tax Examiner Name Role Phone Kojo Fermin MD Primary Care Provider Power De La Torre Jr [phone] REASON FOR VISIT MRI Encounters Encounter Location Date Provider Diagnosis [facility] [address] [place] [address] 03/28/2024 Power Barrera Jr PLAN OF TREATMENT Next Appt Details Provider Name:Power hall Jr, 03/07/2025 11:10:00 AM, [address], [address], [place], [address],
== END 2024-05-04 13:09 | disposition home or self-care (01) ==
PROVIDERS: PCP Internal Medicine; Visit Provider Internal Medicine Cardiovascular Disease
DX: I48.0 Paroxysmal atrial fibrillation (principal); I25.10 Atherosclerotic heart disease of native coronary artery without angina pectoris; I35.0 Nonrheumatic aortic (valve) stenosis; I47.19 Other supraventricular tachycardia
CPT/HCPCS: 93010; 99215

== ENCOUNTER → 2024-05-04 12:38 | Outpatient (BNVA) | payer MEDICARE, MEDICAID, SELFPAY | PROVIDERS: PCP Internal Medicine; Visit Provider Internal Medicine Cardiovascular Disease | DX: I48.0 Paroxysmal atrial fibrillation (principal); I25.10 Atherosclerotic heart disease of native coronary artery without angina pectoris; I35.0 Nonrheumatic aortic (valve) stenosis; I47.19 Other supraventricular tachycardia; R94.31 Abnormal electrocardiogram [ECG] [EKG] | CPT/HCPCS: 93005; 99212 ==

== ENCOUNTER → 2024-05-09 12:30 | Outpatient (REF) | payer MEDICARE, SELFPAY ==
--- OUTSIDE RECORDS SUMMARY | 2024-05-09 13:23 | XMS_ITS | Clinical Summary ---
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 Patient is a former smoker with a 44-hyvd-axwd history. He states during ambulation he has to take very frequent breaks due to feeling winded . He continues to have some discomfort along his surgical incisional sites however he states that it is manageable. While patient was in office reviewed his most recent chest CT scan which was performed at [facility] on July 31, 2021 and shows [...] COMMENT: Benign thyroid nodule COLONOSCOPY 06/05/08 PROCEDURE: VT COLONOSCOPY STOMA DX INCLUDING COLLJ SPEC SPX; COMMENT: Up to cecum, ascending polyp removed:Adenomatous, Hepatic flexure polyp removed:TA, Sigmoid polyp removed:Hyperplastic. NOT removed 1 polyp at asceding and 2 polyps at transverse OTHER SURGICAL HISTORY PROCEDURE: VT RADIAL KERATOTOMY; COMMENT: left eye Medical History [...] 8:45 AM EDT Office Visit Pulmonolgy - [place] [address] [place] [address] Canelo Valles MD [address] [place] [address] Health Maintenance Due Date Last Done Comments [...] Test (05/07/2023) Annual BMP Blood Test abstracted [facility] Provider HEALTH MAINTENANCE Final Result * Lipid panel (01/14/2023) Pathologist [facility] LDL/HDL Ratio 0 0 - 0 Triglycerides 0 0 - 0 mg/dL Cholesterol 0 0 - 0 mg/dL HDL 0 0 - 0 mg/dL LDL Cholesterol 0 0 - 0 mg/dL Blood Venous blood specimen / Unknown [facility] Provider LAB BLOOD ORDERABLES Terese l Result * Abdominal Aortic Aneurysm Screen (08/02/2008) Pathologist [facility] Abdominal Aortic Aneurysm (AAA) Screening abstracted Anatomical Region Laterality Modality Other [facility] Provider HEALTH MAINTENANCE Final Result from Last 3 Months or Most Recently Relevant to Health Maintenance Insurance MEDICARE MEDICAID - [place] Advance Directives Documents on File Type Date Recorded 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
--- OUTSIDE RECORDS SUMMARY | 2024-05-09 13:23 | XMS_ITS ---
Author Organization [facility] Address [address] [place] [address] Care Team Providers Care Machine Operator Slitter Technician Name Role Phone Kojo Fermin MD Primary Care Provider Power De La Torre Jr Unavailable [phone] ALLERGIES No Known Allergies REASON FOR VISIT [...] with food Oral Twice a day Active [place] 3 1000 MG 1 capsule Orally Onc [...] Abnormal x-ray of liver (R93.2) Active confirmed 708696084 VITAL SIGNS BMI 31.28 kg/m2 03/06/2024 Blood pressure systolic 000 mm Hg 03/06/20 24 Blood pressure diastolic 00 mm Hg 024 Height 73.5 in 03/06/2024 Temperature 97.8 degrees Fahrenheit 03/06/20 24 Weight 240 lb 6 oz lbs 03/06/2024 Encounters Encounter Location Date Provider Diagnosis [facility] [address] [facility] [address] [place] [address] 03/06/2024 Power Barrera Jr Cedeno's esophagus with [...] Notes Assessment Notes Cedeno's esophagus with dysplasia [place] tt esophagus material was printed Next Appt Details Follow Up: 1 Year, Reason: Provider Name:Power hall Jr, 03/07/2025 11:10:00 AM, [address] [place] [address], [address], [place], [address],
--- OUTSIDE RECORDS SUMMARY | 2024-05-09 13:23 | XMS_ITS ---
Author Organization [facility] Address [address] [place] [address] Care Team Providers Care Personnel Training Officer Name Role Phone Kojo Fermin MD Primary Care Provider Power De La Torre Jr REASON FOR VISIT MRI PROBLEMS Problem Type ICD Code Onset Dates Problem Status W/U Status Risk SNOMED Code Notes Problem Liver lesion (K76.9) Active confirmed 343902411 Problem Pancreatic cyst (K86.2) Active confirmed 70073228 Problem Kidney cysts (N28.1) Active confirmed 686049252 Encounters Encounter Location Date Provider Diagnosis [facility] [address] [place] [address] 03/06/2024 Power Barrera Jr Liver lesion K76.9 [...] 11:10:00 AM, [address], [address], [place], [address],
--- OUTSIDE RECORDS SUMMARY | 2024-05-09 13:23 | XMS_ITS ---
Author Organization [facility] Address [address] [place] [address] Care Team Providers Care Shipping Room Helper Name Role Phone Kojo Fermin MD Primary Care Provider Power De La Torre Jr REASON FOR VISIT MRI Encounters Encounter Location Date Provider Diagnosis [facility] [address] [place] [address] 03/28/2024 Power Barrera Jr PLAN OF TREATMENT Next Appt Details Provider Name:Power hall Jr, 03/07/2025 11:10:00 AM, [address], [address], [place], [address],
--- OUTSIDE RECORDS SUMMARY | 2024-05-09 13:23 | XMS_ITS | Patient Health Record ---
Author Organization [facility] Address [address] [place] [address] Care Team Providers Care Chancery Clerk Name Role Phone Kojo Fermin MD Primary Care Provider Teresitaa Power Dunbar Jr Unavailable ALLERGIES No Known Allergies RESULTS Component Value Reference Range Notes MR abdomen wo/w con Reviewed date:03/28/2024 02:59:50 PM Interpretation: Performing Lab: Notes/Report: [address] [address] Magnetic Resonance Report Signed Patient: Shane Sim MR#: [id number] : 1955 Acct:[id number] Age/Sex: 69 / M ADM Date: 03/24/24 Loc: HO.MRI Attending Dr: Power Barrera MD Ordering Physician: Power Barrera MD Date of Service: 03/24/24 Procedure(s): MR abdomen wo/w con Accession Number(s): [id number] cc: Kojo Fermin MD; Power Barrera MD [...] by: Kenny Peter MD 03/27/2024 11:41 AM [facility] Dictated By: Kenny Peter MD Signed By: <Electronically signed by Kenny Peter MD in OV> 03/27/24 1141 DD/ 0925 TD/TT: 03/24/24 1000 Barmaid: REASON FOR REFERRAL No Information MEDICATIONS Medication [...] directed Orally O nce a day Active [place] 3 1000 MG 1 capsule Orally Onc [...] Problem Colon cancer screening (Z12.11) Active confirmed 477330037 Problem Rectal bleeding (K62.5) Active confirmed 27191316 Problem Left lower quadrant pain (R10.32) Active confirmed 592912624 Problem Other cirrhosis of liver (K74.69) Active confirmed 54315304 Problem Chronic hepatitis C without hepatic coma (B18.2) Active confirmed 907567554 Problem Abnormal x-ray of liver (R93.2) Active confirmed 128113120 Problem Liver mass (R16.0) Active confirmed 157970662 Problem Pancreatic cyst (K86.2) Active confirmed 35386638 Problem 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) Active confirmed 1796177859125267 Problem Liver lesion (K76.9) Active confirmed 215531825 Problem Focal nodular hyperplasia of liver (K76.89) Active confirmed 372928964 Problem Elevated liver function tests (R94.5) Active confirmed 810799641 Problem Kidney cysts (N28.1) Active confirmed 466765617 VITAL SIGNS Temperature 97.8 degrees Fahrenheit 03/06/2024 Blood pressure diastolic 00 mm Hg 03/06/2024 Height 73.5 in 03/06/2024 Blood pressure systolic 000 mm Hg 03/06/2024 Weight 240 lb 6 oz lbs 03/06/2024 BMI 31.28 kg/m2 03/06/2024 Encounters Encounter Location Date Provider Diagnosis [facility] [address] [place] [address] 12/01/2023 Power Barrera Jr [facility] [address] [place] [address] 03/06/2024 Power Barrera Jr Cedeno's esophagus with dysplasia K22.719 ; Colon cancer screening Z12.11 ; Other cirrhosis of liver K74.69 and Abnormal x-ray of liver R93.2 [facility] [address] [place] [address] 12/01/2023 Power Barrera Jr [facility] [address] [place] [address] 03/06/2024 Power Barrera Jr Liver lesion K76.9 ; Pancreatic cyst K86.2 and Kidney cysts N28.1 [facility] [address] [place] [address] 03/28/2024 Power Barrera Jr ASSESSMENTS Encounter Date [...] 11:10:00 AM, [address], [address], [place], [address], Insurance Providers Payer Name Payer Address Payer Phone Subscriber Number Group Number Insured Name Patient Relationship to Insured Coverage Start Date Coverage End Date MEDICARE OF [place] [address] [place] [address] [phone] [id number] SHANE SIM Self - patient is the insured MEDICAID OF [employer] [address] [place] [address] [id number] SHANE SIM Self - patient is the insured MEDICAL (GENERAL) HISTORY Medical History History ICD Code Colon polyps, colonoscopy 04/13, multiple adenomas, three-year followup hepatitis C, F4 fibrosis, status post Pastrana rvoni x12 weeks with SVR hypertension depression back pain Hyperlipidemia coronary artery disease, [place] 12/2017, ross nt placement leg numbness. anemia [...]
== END ==
LOC: HO.CARD 12:30
PROVIDERS: PCP Internal Medicine; Visit Provider Internal Medicine Cardiovascular Disease
DX: I47.19 Other supraventricular tachycardia (principal); I48.0 Paroxysmal atrial fibrillation
CPT/HCPCS: 93242

== ENCOUNTER → 2024-05-09 12:33 | Outpatient (BNV) | payer MEDICARE, SELFPAY | PROVIDERS: PCP Internal Medicine; Visit Provider Internal Medicine | DX: I48.92 Unspecified atrial flutter (principal) | CPT/HCPCS: 93244 ==

== ENCOUNTER 2024-05-16 12:47 | Outpatient (AMB) | payer MEDICARE, BC, SELFPAY ==
[2024-05-16 13:01] VITALS: BMI 32.3
--- NOTE | 2024-05-16 13:01 | A.OFFVIS_ITS ---
Vital Signs 05/16/24 13:01 Height 6 ft Weight 238 lb BMI 32.3 Intake Visit Reasons: Overdue followup/Re-Ref PAD s/p Angio Intake Note: follow up PAD and diagnostic Angio 03/17/23, since last seen he has had a cardioversion and breathing issues. He is recovered w/ his spinal surgery w/ . States the Right LE is worse than Left LE pain and numbness. Wardrobe Manager Required: No Accompanied by: Self / Same As Patient Allergies No Known Allergies [No Known Allergies*] Allergy (Verified 05/16/24 13:04) HPI HPI Overdue followup/Re-Ref PAD s/p Angio: Details: The patient is a 69-year-old male presenting with symptoms consistent with vascular claudication. His primary concern is leg pain during ambulation, significantly affecting his functional status. The right posterior thigh is the main site of discomfort, occurring with minimal exertion and restricting his ability to walk short distances without frequent stops. The onset was shortly after a lumbar spine surgery in May 2023, which was partially successful, relieving some symptoms while leaving residual sciatica. Notably, his ability to walk is limited to approximately 100 yards at most. Previous interventions included an angiogram performed in February 2023, revealing significant vascular blockages. 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 He now presents to us for vascular follow-up. [facility] Medical History Atrial flutter CAD (coronary artery disease) Atrial fibrillation Junctional bradycardia COVID-19 Blindness of left eye History of eye prosthesis Thyroid disease GERD (gastroesophageal reflux disease) Numbness On beta patrick at home On anticoagulant therapy Murmur PVD (peripheral vascular disease) Myocardial infarction Alcohol dependence Post laminectomy syndrome Asthma Renal stones COPD (chronic obstructive pulmonary disease) Anemia Hepatitis C Hyperlipidemia HTN (hypertension) SVT (supraventricular tachycardia) Surgical History Hx of eye surgery History of esophagogastroduodenoscopy (EGD) H/O colonoscopy S/P lobectomy of lung (~05/2021) Stented coronary artery Hx of thyroidectomy History of back surgery Hx of cardiac cath Family History Father Cancer Mother CVD (cardiovascular disease) Social History Household Members: None Housing: Apartment Are you a primary respiratory care technician to a significant other at home: No Do you presently have visiting nurse or other home services: No Alcohol intake: current Alcohol intake frequency: 0-2 drinks per day Alcohol type: hard liquor Patient Tobacco Use Status: Former Tobacco user Tobacco use type: Cigarette Cigarette Packs Per Day: 1 Cigarettes Per Day: 20.0 Years Smoked: 40 Second Hand Smoke Exposure: No Substance Use Type: Marijuana Advance Directives Date on File: 09/09/23 service: No Review of Systems Const All systems reviewed & are unremarkable except as noted in HPI and below Reports no additional complaints ENT Reports Normal hearing present Card Denies chest pain, Denies chest pain at rest, Denies chest pain with activity and Denies pedal edema Resp Denies cough GI Denies abdominal pain Musc Denies abnormal gait, Denies muscle cramps and Denies radiating pain into limb Skin/Breast Denies skin ulcer and Denies wounds Neuro Reports Normal hearing present and Denies abnormal gait Psych Reports no additional complaints Physical Exam Vital Signs: BMI result Body Mass Index 32.3 Const General: cooperative, healthy appearing and comfortable Orientation/consciousness: oriented to person, oriented to place and oriented to time HEENT Head: Yes normal to inspection Neck Neck: Yes normal visual inspection Carotids: no bruits Chest Chest palpation & inspection: normal inspection of the chest Resp Effort & Inspection: normal respiratory effort and able to speak in complete sentences Auscultation: clear to auscultation bilaterally, no crackles, no rales, no rhonchi and no wheezes Cardio Other: Bilateral DP signals Rate: regular rate Rhythm: regular rhythm Heart sounds: S1 normal heart sound present and S2 normal heart sound present Bruits: no carotid bruits Peripheral pulses: Peripheral pulses 2+ throughout GI Inspection: Yes normal to inspection Skin Wounds: no wounds Hair: normal Neuro General: oriented to person, oriented to place and oriented to time Cranial nerves: Yes CN's II-XII intact bilaterally and Yes Normal hearing present Cognition (Neuro): normal cognition Motor exam (neuro): 5/5 motor strength present throughout Extrem Other: venous exam: No significant superficial varicosities or spider telangiectasias, minimal edema General: No clubbing, No cyanosis and No edema Psych Appearance: grossly normal Mental Status: mental status grossly normal Speech and movement: Normal speech and movement present Assessment & Plan Assessment & Plan (1) PAD (peripheral artery disease): Comment: 03/17/2023 - diagnostic angiogram Code(s): I73.9 - Peripheral vascular disease, unspecified Category: Medical Plan: I discussed the current vascular issues with the patient, explaining the likely diagnosis of vascular claudication and the importance of re-evaluating the vascular status through a CTA angiogram with run-off. The risks and benefits of this imaging were explained, including its role in planning appropriate treatment interventions. I elaborated on managing goals to enable improved ambulation with less discomfort. A discussion on the necessity of pre-procedure blood work to assess kidney function was also held. I advised the patient to stay active within comfort, reinforcing the importance of mobility for vascular health. You will follow up with us after CT angiogram. Thank you for allowing us to assist in his care. If there are any questions or concerns please do not hesitate to contact us. Orders: Orders CT angio abd aorta runoff 1 Week I73.9 - Peripheral vascular disease, unspecified Blood Urea Nitrogen Today I73.9 - Peripheral vascular disease, unspecified Creatinine Today I73.9 - Peripheral vascular disease, unspecified Coding Level of Care Code Est Pt Level 4 (24259) Complex EM visit Add On G2211 Diagnoses PAD (peripheral artery disease) I73.9
--- OUTSIDE RECORDS SUMMARY | 2024-05-16 15:33 | XMS_ITS | Clinical Summary ---
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 Patient is a former smoker with a 02-[id number]-[id number] history. He states during ambulation he has to take very frequent breaks due to feeling winded . He continues to have some discomfort along his surgical incisional sites however he states that it is manageable. While patient was in office reviewed his most recent chest CT scan which was performed at [facility] on July 31, 2021 and shows chronic [...] COMMENT: Benign thyroid nodule COLONOSCOPY 06/05/08 PROCEDURE: NV COLONOSCOPY STOMA DX INCLUDING COLLJ SPEC SPX; COMMENT: Up to cecum, ascending polyp removed:Adenomatous, Hepatic flexure polyp removed:TA, Sigmoid polyp removed:Hyperplastic. NOT removed 1 polyp at asceding and 2 polyps at transverse OTHER SURGICAL HISTORY PROCEDURE: NV RADIAL KERATOTOMY; COMMENT: left eye Medical History [...] 8:45 AM EDT Office Visit Pulmonolgy - [place] [address] [place] [address] Canelo Valles MD [address] [place] [address] Health Maintenance Due Date Last Done Comments [...] Test (05/07/2023) Annual BMP Blood Test abstracted [facility] Provider HEALTH MAINTENANCE Final Result * Lipid panel (01/14/2023) Pathologist [facility] LDL/HDL Ratio 0 0 - 0 Triglycerides 0 0 - 0 mg/dL Cholesterol 0 0 - 0 mg/dL HDL 0 0 - 0 mg/dL LDL Cholesterol 0 0 - 0 mg/dL Blood Venous blood specimen / Unknown [facility] Provider LAB BLOOD ORDERABLES Terese l Result * Abdominal Aortic Aneurysm Screen (08/02/2008) Pathologist [facility] Abdominal Aortic Aneurysm (AAA) Screening abstracted Anatomical Region Laterality Modality Other [facility] Provider HEALTH MAINTENANCE Final Result from Last 3 Months or Most Recently Relevant to Health Maintenance Insurance MEDICARE MEDICAID - [place] Advance Directives Documents on File Type Date Recorded Patient Watershed Manager Expl anation Health Care Decision (hx) 06/20/2021 [...] (hx) 06/18/2021 AD HURTADO DIRECTIVE Care Teams Registered Nurse Fetal Relationship Specialty Start Date End Date Kojo Fermin MD [address] [place] [address] PCP - General Internal Medicine 03/27/21
== END 2024-05-16 13:22 | disposition home or self-care (01) ==
PROVIDERS: PCP Internal Medicine; Visit Provider Surgery Vascular Surgery
DX: I73.9 Peripheral vascular disease, unspecified (principal)
CPT/HCPCS: 99214; G2211

== ENCOUNTER → 2024-05-16 12:47 | Outpatient (BNVA) | payer MEDICARE, SELFPAY | PROVIDERS: PCP Internal Medicine; Visit Provider Surgery Vascular Surgery | DX: I73.9 Peripheral vascular disease, unspecified (principal) | CPT/HCPCS: 99212 ==

== ENCOUNTER 2024-05-17 05:02 | Emergency (ER) | payer MEDICARE, BC, SELFPAY ==
[2024-05-17 05:04] VITALS: BP 161/80; PULSE 100; RESP 19; TEMP 36.9; O2SAT 98; BMI 32.9
--- OUTSIDE RECORDS SUMMARY | 2024-05-17 06:49 | XMS_ITS | Clinical Summary ---
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 Patient is a former smoker with a 33-eegi-ncud history. He states during ambulation he has to take very frequent breaks due to feeling winded . He continues to have some discomfort along his surgical incisional sites however he states that it is manageable. While patient was in office reviewed his most recent chest CT scan which was performed at [facility] on July 31, 2021 and shows [...] COMMENT: Benign thyroid nodule COLONOSCOPY 06/05/08 PROCEDURE: ID COLONOSCOPY STOMA DX INCLUDING COLLJ SPEC SPX; COMMENT: Up to cecum, ascending polyp removed:Adenomatous, Hepatic flexure polyp removed:TA, Sigmoid polyp removed:Hyperplastic. NOT removed 1 polyp at asceding and 2 polyps at transverse OTHER SURGICAL HISTORY PROCEDURE: ID RADIAL KERATOTOMY; COMMENT: left eye Medical History [...] 8:45 AM EDT Office Visit Pulmonolgy - [place] [address] [place] [address] Canelo Valles MD [address] [place] [address] Health Maintenance Due Date Last Done Comments [...] Test (05/07/2023) Annual BMP Blood Test abstracted [facility] Provider HEALTH MAINTENANCE Final Result * Lipid panel (01/14/2023) Pathologist [facility] LDL/HDL Ratio 0 0 - 0 Triglycerides 0 0 - 0 mg/dL Cholesterol 0 0 - 0 mg/dL HDL 0 0 - 0 mg/dL LDL Cholesterol 0 0 - 0 mg/dL Blood Venous blood specimen / Unknown [facility] Provider LAB BLOOD ORDERABLES Terese l Result * Abdominal Aortic Aneurysm Screen (08/02/2008) Pathologist [facility] Abdominal Aortic Aneurysm (AAA) Screening abstracted Anatomical Region Laterality Modality Other [facility] Provider HEALTH MAINTENANCE Final Result from Last 3 Months or Most Recently Relevant to Health Maintenance Insurance MEDICARE MEDICAID - [place] Advance Directives Documents on File Type Date Recorded 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
--- OUTSIDE RECORDS SUMMARY | 2024-05-17 06:49 | XMS_ITS | Patient Health Record ---
Author Organization [facility] Address [address] [place] [address] Care Team Providers Care Shotgun Shell Assembly Machine Adjuster Name Role Phone Kojo Fermin MD Primary Care Provider Teresitaa Power Dunbar Jr Unavailable [phone] ALLERGIES No Known Allergies RESULTS Component Value Reference Range Notes MR abdomen wo/w con Reviewed date:03/28/2024 02:59:50 PM Interpretation: Performing Lab: Notes/Report: [address] [address] Magnetic Resonance Report Signed Patient: Shane Sim MR#: [id number] : 1955 Acct:[id number] Age/Sex: 69 / M ADM Date: 03/24/24 Loc: HO.MRI Attending Dr: Power Barrera MD Ordering Physician: Power Barrera MD Date of Service: 03/24/24 Procedure(s): MR abdomen wo/w con Accession Number(s): [id number] cc: Kojo Fermin MD; Power Barrera MD [...] by: Kenny Peter MD 03/27/2024 11:41 AM [facility] Dictated By: Kenny Peter MD Signed By: <Electronically signed by Kenny Peter MD in OV> 03/27/24 1141 DD/ 0925 TD/TT: 03/24/24 1000 Party Plan Sales Host/Hostess: REASON FOR REFERRAL No Information MEDICATIONS Medication [...] directed Orally O nce a day Active Taylor 3 1000 MG 1 capsule Orally Onc [...] Problem Colon cancer screening (Z12.11) Active confirmed 411430955 Problem Rectal bleeding (K62.5) Active confirmed 38826729 Problem Left lower quadrant pain (R10.32) Active confirmed 506966880 Problem Other cirrhosis of liver (K74.69) Active confirmed 59875472 Problem Chronic hepatitis C without hepatic coma (B18.2) Active confirmed 732014780 Problem Abnormal x-ray of liver (R93.2) Active confirmed 978043602 Problem Liver mass (R16.0) Active confirmed 345798315 Problem Pancreatic cyst (K86.2) Active confirmed 19441541 Problem 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) Active confirmed 1545109844422536 Problem Liver lesion (K76.9) Active confirmed 488752210 Problem Focal nodular hyperplasia of liver (K76.89) Active confirmed 282570800 Problem Elevated liver function tests (R94.5) Active confirmed 098614412 Problem Kidney cysts (N28.1) Active confirmed 022965942 VITAL SIGNS Temperature 97.8 degrees Fahrenheit 03/06/2024 Blood pressure diastolic 00 mm Hg 03/06/2024 Height 73.5 in 03/06/2024 Blood pressure systolic 000 mm Hg 03/06/2024 Weight 240 lb 6 oz lbs 03/06/2024 BMI 31.28 kg/m2 03/06/2024 Encounters Encounter Location Date Provider Diagnosis [facility] [address] [place] [address] 12/01/2023 Power Barrera Jr [facility] [address] [place] [address] 03/06/2024 Power Barrera Jr Cedeno's esophagus with dysplasia K22.719 ; Colon cancer screening Z12.11 ; Other cirrhosis of liver K74.69 and Abnormal x-ray of liver R93.2 [facility] [address] [place] [address] 12/01/2023 Power Barrera Jr [facility] [address] [place] [address] 03/06/2024 Power Barrera Jr Liver lesion K76.9 ; Pancreatic cyst K86.2 and Kidney cysts N28.1 [facility] [address] [place] [address] 03/28/2024 Power Barrera Jr ASSESSMENTS Encounter Date [...] Test Test Name Order Date BUN 03/06/2024 BUN 03/30/2022 BUN 01/26/2020 BUN 05/26/2019 CREATININE 01/26/2020 CREATININE 05/26/2019 CREATININE 03/06/2024 CREATININE 03/30/2022 LIVER PROFILE 03/29/2019 LIVER PROFILE 01/26/2020 LIVER PROFILE 04/16/2019 LIVER PROFILE 04/23/2022 LIVER PROFILE 03/30/2022 CBC w/o DIFF 03/29/2019 CBC w/o DIFF 04/16/2019 CBC w/o DIFF 04/23/2022 CBC w/o DIFF 03/30/2022 PROTHROMBIN TIME (PT, INR) 04/23/2022 PROTHROMBIN TIME (PT, INR) 03/30/2022 HEPATITIS A ANTIBODY-IGM 03/29/2019 HEPATITIS B SURFACE ANTIGEN 03/29/2019 HEPATITIS B SURFACE ANTIBODY 03/29/2019 HEPATITIS C VIRAL LOAD 03/29/2019 HEPATITIS C VIRAL LOAD 04/16/2019 HEPATITIS C GENOTYPE 03/29/2019 MRI ABD W&WO CONTRAST 03/30/2022 MRI ABD W&WO CONTRAST 05/26/2019 MRI ABD W&WO CONTRAST 01/26/2020 MRI ABD W&WO CONTRAST 03/06/2024 MRI ABD W&WO CONTRAST 01/18/2020 US ABD 09/20/2019 US ABD 06/07/2019 HEPATITIS B CORE ANTIBODY 03/29/2019 HEPATITIS A ANTIBODY-IGG 03/29/2019 HCV LIVER FIBROSIS, FIBRO TEST 0 Future Test Test Name Order Date COLONOSCOPY 08/15/2014 COLONOSCOPY 09/14/2018 UPPER GI ENDOSCOPY 03/30/2022 COLONOSCOPY 03/30/2022 UPPER GI ENDOSCOPY 04/23/2022 Next Appt Details Provider Name:Power Zulma hall Jr, 03/07/2025 11:10:00 AM, [address], [address], [place], [address], Insurance Providers Payer Name Payer Address Payer Phone Subscriber Number Group Number Insured Name Patient Relationship to Insured Coverage Start Date Coverage End Date MEDICARE OF [place] [address] [place] [address] [phone] [id number] SHANE SIM Self - patient is the insured MEDICAID OF [employer] [address] [place] [address] [phone] [id number] SHANE SIM Self - patient is the insured MEDICAL (GENERAL) HISTORY Medical History History ICD Code Colon polyps, colonoscopy 04/13, multiple adenomas, three-year followup hepatitis C, F4 fibrosis, status post Pastrana rvoni x12 weeks with SVR hypertension depression back pain Hyperlipidemia coronary artery disease, ND 12/2017, ross nt placement leg numbness. anemia [...]
--- OUTSIDE RECORDS SUMMARY | 2024-05-17 06:49 | XMS_ITS ---
Author Organization [facility] Address [address] [place] [address] Care Team Providers Care Soil Sort Worker Name Role Phone Kojo Fermin MD Primary Care Provider Power De La Torre Jr REASON FOR VISIT MRI PROBLEMS Problem Type ICD Code Onset Dates Problem Status W/U Status Risk SNOMED Code Notes Problem Liver lesion (K76.9) Active confirmed 373719437 Problem Pancreatic cyst (K86.2) Active confirmed 78295483 Problem Kidney cysts (N28.1) Active confirmed 024671328 Encounters Encounter Location Date Provider Diagnosis [facility] [address] [place] [address] 03/06/2024 Power Barrera Jr Liver lesion K76.9 [...] 11:10:00 AM, [address], [address], [place], [address],
--- OUTSIDE RECORDS SUMMARY | 2024-05-17 06:49 | XMS_ITS ---
Author Organization [facility] Address [address] [place] [address] Care Team Providers Care Pickers Material Handlers Name Role Phone Kojo Fermin MD Primary [...] with food Oral Twice a day Active Mcdonough 3 1000 MG 1 capsule Orally Onc [...] Abnormal x-ray of liver (R93.2) Active confirmed 266392214 VITAL SIGNS Temperature 97.8 degrees Fahrenheit 03/06/20 24 Blood pressure systolic 000 mm Hg 03/06/20 24 Blood pressure diastolic 00 mm Hg 024 Height 73.5 in 03/06/2024 Weight 240 lb 6 oz lbs 03/06/2024 BMI 31.28 kg/m2 03/06/2024 Encounters Encounter Location Date Provider Diagnosis [facility] [address] [place] [phone] 03/06/2024 Power Barrera Jr Cedeno's esophagus with [...] Notes Assessment Notes Cedeno's esophagus with dysplasia Lorraine tt esophagus material was printed Next Appt Details Follow Up: 1 Year, Reason: Provider Name:Power hall Jr, 03/07/2025 11:10:00 AM, [address] [place] [address], [address], [place], [address],
--- NOTE | 2024-05-17 08:02 | ED.EXTPRO ---
HPI - Extremity Problem General Chief complaint: Extremity Problem Stated complaint: gout ? Time Seen by Provider: 05/17/24 07:56 Source: patient Mode of arrival: ambulatory Limitations: no limitations History of Present Illness HPI Narrative: patient presented to the emergency department complaining of right wrist pain he has history of gout he is on Eliquis he was taken off of colchicine. Pain he has been ongoing for about 2 days no fever no chills no trauma MD Complaint: extremity pain Onset (ago): day(s) (2) Pain Consistency: constant Location: right Quality: burning Radiation: none Relieving factors: nothing Exacerbating factors: nothing Associated symptoms: denies other symptoms Related Data Home Medications ?Medication ?Instructions ?Recorded ?Confirmed famotidine 40 mg tablet 40 mg PO BID 04/12/20 05/04/24 gabapentin 600 mg tablet 600 mg PO BID 04/12/20 05/04/24 albuterol sulfate 90 mcg/actuation 2 puff inhalation QID PRN 10/26/22 05/04/24 aerosol inhaler Shortness Of Breath Or Wheezing aspirin 81 mg tablet,delayed 81 mg PO DAILY 05/19/23 05/04/24 release cholecalciferol (vitamin D3) 25 25 mcg PO DAILY 05/19/23 05/04/24 mcg (1,000 unit) capsule (Vitamin D3) cyanocobalamin (vitamin B-12) 500 500 mcg PO DAILY 05/19/23 05/04/24 mcg tablet (Vitamin B-12) fluticasone fur. 200 mcg-umeclid 1 ea inhalation DAILY 05/19/23 05/04/24 62.5 mcg-vilant 25 mcg inhalat.powder (Trelegy Ellipta) ipratropium 0.5 mg-albuterol 3 mg 3 ml inhalation QID PRN Shortness 05/19/23 05/04/24 (2.5 mg base)/3 mL nebulization Of Breath Or Wheezing soln magnesium oxide 400 mg (241.3 mg 400 mg PO BIDWM 09/14/23 05/04/24 magnesium) tablet allopurinol 100 mg tablet 100 mg PO DAILY 05/04/24 05/04/24 Previous Rx's ?Medication ?Instructions ?Recorded omega-3 acid ethyl esters 1 gram 2 cap PO BID #90 caps 01/27/21 capsule acetaminophen 325 mg capsule 650 mg (2 x 325 mg) PO Q6H PRN 11/05/23 pain #30 caps atorvastatin 40 mg tablet 40 mg PO DAILY #90 tabs 02/03/24 apixaban 5 mg tablet (Eliquis) 5 mg PO BID #60 tabs 02/14/24 amlodipine 10 mg tablet 10 mg PO DAILY #90 tabs 05/05/24 oxycodone 5 mg tablet 5 mg PO Q6H PRN pain #15 tabs 05/17/24 prednisone 20 mg tablet 40 mg (2 x 20 mg) PO DAILY 5 days 05/17/24 #10 tabs Allergies Allergy/AdvReac Type Severity Reaction Status Date / Time No Known Allergies Allergy Verified 05/17/24 05:07 [No Known Allergies*] Review of Systems Constitutional: Constitutional: Reports no additional constitutional complaints Cardiovascular: Cardiovascular: Reports no additional cardiovascular complaints Integumentary/Breasts: Skin/Breast: Reports other (rt wrist pain) [facility] Past Medical History Attestation statement: The following information was validated with the patient. Medical History Atrial flutter CAD (coronary artery disease) Atrial fibrillation Junctional bradycardia COVID-19 Blindness of left eye History of eye prosthesis Thyroid disease GERD (gastroesophageal reflux disease) Numbness On beta patrick at home On anticoagulant therapy Murmur PVD (peripheral vascular disease) Myocardial infarction Alcohol dependence Post laminectomy syndrome Asthma Renal stones COPD (chronic obstructive pulmonary disease) Anemia Hepatitis C Hyperlipidemia HTN (hypertension) SVT (supraventricular tachycardia) Surgical History Hx of eye surgery History of esophagogastroduodenoscopy (EGD) H/O colonoscopy S/P lobectomy of lung (~05/2021) Stented coronary artery Hx of thyroidectomy History of back surgery Hx of cardiac cath Family History Family History Father Cancer Mother CVD (cardiovascular disease) Social History Social History Household Members: None Housing: Apartment Are you a primary child care team lead to a significant other at home: No Do you presently have visiting nurse or other home services: No Alcohol intake: current Alcohol intake frequency: 0-2 drinks per day Alcohol type: hard liquor Patient Tobacco Use Status: Former Tobacco user Tobacco use type: Cigarette Cigarette Packs Per Day: 1 Cigarettes Per Day: 20.0 Years Smoked: 40 Second Hand Smoke Exposure: No Substance Use Type: Marijuana Advance Directives: Yes Advance Directives on File: Yes Advance Directives Date on File: 09/09/23 Do you have a plan to hurt others: No Plan service: No Physical Exam Vital Signs: Vital Signs: Last Vital Signs Temp 98.4 F 05/17/24 08:27 Pulse 100 05/17/24 08:27 Resp 19 05/17/24 08:27 BP 161/80 H 05/17/24 08:27 Pulse Ox 98 05/17/24 08:27 O2 Del Method Room Air 05/17/24 08:27 BMI result Body Mass Index 32.9 no acute distress Const: General: cooperative Orientation/consciousness: patient oriented x3 Limitations: no limitations HEENT: Head: Yes normal to inspection General nose exam: Normal external nose present Face and sinus: Yes normal facial exam Mouth: Normal oral and palatal mucosa present Throat: Yes posterior oropharynx normal Neck: Neck: Yes normal visual inspection Resp: Effort & Inspection: normal respiratory effort Cardio: Jugular venous distension: no JVD Rate: regular rate Rhythm: regular rhythm GI: Inspection: Yes normal to inspection Palpation (GI): Soft to palpation Neuro: General: patient oriented x3 Extrem: Other: tenderness swelling over the right wrist is warm Medications Administered Discontinued Medications Generic Name Dose Route Start Last Admin Trade Name Freq PRN Reason Stop Dose Admin Dexamethasone Sodium Phosphate 10 mg 05/17/24 08:01 05/17/24 08:26 Dexamethasone Sod Phosphate 10 Mg/Ml Vial IM 05/17/24 08:02 10 mg ONCE ONE Administration Medical Decision Making Medical Decision Making [facility] Narrative: patient presented with a right wrist pain most likely gout options limited unable to take NSAID because on Eliquis, can not take colchicine because on Eliquis we will give him steroid and oxycodone Differential Diagnosis Differential Diagnoses: The differential diagnosis associated with the presentation includes acute gout/unlikely cellulitis he has no fever no tachycardia /unlikely fracture no history of trauma Admission/Observation Consideration of admission/observation: Escalation of care including admission/observation considered Discharge Plan Discharge Clinical Impression: Gout attack Qualifiers: Gout site: wrist Gout etiology: unspecified cause Laterality: right Qualified Code(s): M10.9 - Gout, unspecified Clinical Impression: (Ruled Out): Lower extremity edema Patient Disposition: Home, Self-Care Instructions: Gout (ED) Additional Instructions: follow-up with your primary care physician return to the emergency room if you worse any concern Prescriptions: New prednisone 20 mg tablet 40 mg PO DAILY 5 Days Qty: 10 0RF oxycodone 5 mg tablet 5 mg PO Q6H PRN (Reason: pain) Qty: 15 0RF Rx Instructions: partial filing upon pt request; Partial Fill upon patient request. No Action omega-3 acid ethyl esters 1 gram capsule 2 cap PO BID Qty: 90 3RF atorvastatin 40 mg tablet 40 mg PO DAILY Qty: 90 3RF Eliquis 5 mg tablet 5 mg PO BID Qty: 60 3RF amlodipine 10 mg tablet 10 mg PO DAILY Qty: 90 3RF aspirin 81 mg Tablet,Delayed Release (Dr/Ec) 81 mg PO DAILY cyanocobalamin (vitamin B-12) [Vitamin B-12] 500 mcg Tablet 500 mcg PO DAILY cholecalciferol (vitamin D3) [Vitamin D3] 25 mcg (1,000 unit) Capsule 25 mcg PO DAILY Trelegy Ellipta 200-62.5-25 mcg blister with device 1 ea INHALATION DAILY ipratropium-albuterol 0.5 mg-3 mg(2.5 mg base)/3 mL Solution For Nebulization 3 ml INHALATION QID PRN (Reason: Shortness Of Breath Or Wheezing) magnesium oxide 400 mg (241.3 mg magnesium) tablet 400 mg PO BIDWM acetaminophen 325 mg capsule 650 mg PO Q6H PRN (Reason: pain) Qty: 30 0RF gabapentin 600 mg tablet 600 mg PO BID famotidine 40 mg tablet 40 mg PO BID albuterol sulfate 90 mcg/actuation HFA aerosol inhaler 2 puff inhalation QID PRN (Reason: Shortness Of Breath Or Wheezing) allopurinol 100 mg tablet 100 mg PO DAILY Interventions: ED Discharge Assessment Last Done: 05/17/24 08:27 Discharge Date/Time: 05/17/24 08:28 Print Language: Tamazight
[2024-05-17] MEDS: dexAMETHasone sod phosphate 10 MG/ML VIAL IM (08:26)
[2024-05-17 08:27] VITALS: BP 161/80; PULSE 100; RESP 19; TEMP 36.9; O2SAT 98
== END 2024-05-17 08:28 | disposition home or self-care (01) ==
PROVIDERS: Emergency Provider Emergency Medicine; PCP Internal Medicine
DX: M10.9 Gout, unspecified (principal); M25.531 Pain in right wrist; I10 Essential (primary) hypertension; E78.5 Hyperlipidemia, unspecified; J45.909 Unspecified asthma, uncomplicated; I48.91 Unspecified atrial fibrillation; Z79.01 Long term (current) use of anticoagulants; Z79.02 Long term (current) use of antithrombotics/antiplatelets; Z79.899 Other long term (current) drug therapy; Z87.891 Personal history of nicotine dependence; F12.90 Cannabis use, unspecified, uncomplicated
CPT/HCPCS: 96372; 99282; 99284; J1100

== ENCOUNTER → 2024-06-16 23:59 | Outpatient (BNV) | payer MEDICARE, MEDICAID, SELFPAY ==
--- NOTE | 2024-06-21 13:12 | MHC.OFFVIS ---
Intake Visit Reasons: Remote device check- Medtronic Allergies No Known Allergies [No Known Allergies*] Allergy (Verified 06/19/24 13:19) PFSH Medical History (Updated 06/21/24 @ 13:12 by Danilo Em MD) Atrial flutter CAD (coronary artery disease) Atrial fibrillation Junctional bradycardia COVID-19 Blindness of left eye History of eye prosthesis Thyroid disease GERD (gastroesophageal reflux disease) Numbness On beta patrick at home On anticoagulant therapy Murmur PVD (peripheral vascular disease) Myocardial infarction Alcohol dependence Post laminectomy syndrome Asthma Renal stones COPD (chronic obstructive pulmonary disease) Anemia Hepatitis C Hyperlipidemia HTN (hypertension) SVT (supraventricular tachycardia) Surgical History Hx of eye surgery History of esophagogastroduodenoscopy (EGD) H/O colonoscopy S/P lobectomy of lung (~05/2021) Stented coronary artery Hx of thyroidectomy History of back surgery Hx of cardiac cath Family History Father Cancer Mother CVD (cardiovascular disease) Social History (Updated 06/19/24 @ 13:20 by Judi Haro LPN) Household Members: None Housing: Apartment Are you a primary day care home provider to a significant other at home: No Do you presently have visiting nurse or other home services: No Alcohol intake: current Alcohol intake frequency: 0-2 drinks per day Alcohol type: hard liquor Patient Tobacco Use Status: Former Tobacco user Tobacco use type: Cigarette Cigarette Packs Per Day: 1 Cigarettes Per Day: 20.0 Years Smoked: 40/ Stopped at age 54 Second Hand Smoke Exposure: No Substance Use Type: Marijuana Advance Directives Date on File: 09/09/23 service: No Office Procedures Cardiac Device Check Cardiac Device Check Details: Remote pacemaker report generated 06/08/2024. Pacemaker function is adequate [id number] Cardiac Device Interrogation, pacemaker Procedure code (CPT) selection complete Assessment & Plan Assessment & Plan (1) Cardiac pacemaker in situ: Code(s): Z95.0 - Presence of cardiac pacemaker Category: Medical Plan: See above Coding Level of Care Code Procedure Only Diagnoses Cardiac pacemaker in situ Z95.0 CPT Codes Cardiac Device Check - Cardiac Device 12: [id number]-[id number] Cardiac Device Interrogation, pacemaker ([id number])
== END ==
PROVIDERS: PCP Internal Medicine; Visit Provider Internal Medicine Cardiovascular Disease
DX: Z45.018 Encounter for adjustment and management of other part of cardiac pacemaker (principal)
CPT/HCPCS: 93294

== ENCOUNTER 2024-06-19 13:07 | Outpatient (AMB) | payer MEDICARE, MEDICAID, SELFPAY ==
--- NOTE | 2024-06-19 13:14 | MHC.OFFVIS ---
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: No Skilled Nursing Facilities Professional: Skilled Nursing Facilities Professional offered & declined Accompanied by: Self / Same As Patient Allergies No Known Allergies [No Known Allergies*] Allergy (Verified 06/19/24 13:19) Medication List - Last Reconciled 06/19/24 by Judi Haro LPN acetaminophen 650 mg (2 x 325 mg) PO Q6H PRN albuterol sulfate 90 mcg/actuation 2 puffs inhalation QID PRN allopurinol 100 mg PO DAILY amlodipine 10 mg PO DAILY apixaban (Eliquis) 5 mg PO BID aspirin 81 mg PO DAILY atorvastatin 40 mg PO DAILY cholecalciferol (vitamin D3) (Vitamin D3) 25 mcg PO DAILY cyanocobalamin (vitamin B-12) (Vitamin B-12) 500 mcg PO DAILY famotidine 40 mg PO BID bjirxamyjjf-piraxmwok-akucurko 200-62.5-25 mcg (Trelegy Ellipta) 1 ea inhalation DAILY gabapentin 600 mg PO BID ipratropium-albuterol 0.5 mg-3 mg(2.5 mg base)/3 mL 3 mL inhalation QID PRN magnesium oxide 400 mg PO BIDWM omega-3 acid ethyl esters 2 caps PO BID oxycodone 5 mg PO Q6H PRN HPI HPI copd: Details: Shane is pleasant 69 year old, former 40 pack year smoker, quit 15 years ago with underlying COPD, HTN, atrial fibrillation s/p ablation on Eliquis, peripheral vascular disease, SVT, hyperlipidemia,CAD s/p RCA stent, h/o AK, XAVIER not on CPAP, s/p resection of RUL pulmonary nodule 06/2021, negative for malignancy. He was referred by PCP for pulmonary evaluation. He was previously under the care of [facility] however would like to switch practices. He reports suboptimal control with Trelegy using DuoNeb 2-3 times per day with moderate improvement in symptoms. He does note that he has old tubing which may be affecting optimal dose of medication and states his nebulizer is >10 years old. He continues to report dyspnea on exertion, intermittent wheezing and productive cough with clear mucous. He reports symptoms are exacerbated by activity otherwise denies known triggers. He believes he had recent PFT and chest CT, both performed through [facility] and reports not available today. He also reports h/o XAVIER, unknown severity, unable to tolerate CPAP therapy. 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 He denies h/o asthma. He reports mother with h/o asthma otherwise denies pertinent family history. Denies any seasonal allergies. Of note, he is under the care of cardiology, had a pacer placed a few days ago for second degree heart block and is scheduled for echo is the near future. [facility] Medical History (Updated 06/19/24 @ 19:53 by Mis Stephens NP) Atrial flutter CAD (coronary artery disease) Atrial fibrillation Junctional bradycardia COVID-19 Blindness of left eye History of eye prosthesis Thyroid disease GERD (gastroesophageal reflux disease) Numbness On beta patrick at home On anticoagulant therapy Murmur PVD (peripheral vascular disease) Myocardial infarction Alcohol dependence Post laminectomy syndrome Asthma Renal stones COPD (chronic obstructive pulmonary disease) Anemia Hepatitis C Hyperlipidemia HTN (hypertension) SVT (supraventricular tachycardia) Surgical History Hx of eye surgery History of esophagogastroduodenoscopy (EGD) H/O colonoscopy S/P lobectomy of lung (~05/2021) Stented coronary artery Hx of thyroidectomy History of back surgery Hx of cardiac cath Family History Father Cancer Mother CVD (cardiovascular disease) Social History (Updated 06/19/24 @ 13:20 by Judi Haro LPN) Household Members: None Housing: Apartment Are you a primary wound care physician to a significant other at home: No Do you presently have visiting nurse or other home services: No Alcohol intake: current Alcohol intake frequency: 0-2 drinks per day Alcohol type: hard liquor Patient Tobacco Use Status: Former Tobacco user Tobacco use type: Cigarette Cigarette Packs Per Day: 1 Cigarettes Per Day: 20.0 Years Smoked: 40/ Stopped at age 54 Second Hand Smoke Exposure: No Substance Use Type: Marijuana Advance Directives Date on File: 09/09/23 service: No Review of Systems Const Denies chills, Denies excessive sweating, Denies fever(s), Denies headache(s) and Denies night sweats Eyes Denies dry eyes, Denies irritation and Denies itchy eyes ENT Reports Normal hearing present, Denies headache(s), Denies nasal congestion, Denies nasal discharge, Denies post nasal drip and Denies sore throat Card Denies chest pain, Denies chest pain at rest, Denies chest pain with activity, Denies claudication, Denies leg edema, Denies orthopnea and Denies paroxysmal nocturnal dyspnea Resp Denies chest congestion, Denies excessive phlegm production, Denies pain on inspiration, Denies pain with cough and Denies stridor Musc Denies myalgias Neuro Reports Normal hearing present and Denies headache(s) Endo Denies excessive sweating Torin/Lymph Denies lymphadenopathy Aller/Immun Denies itchy eyes and Denies seasonal rhinorrhea Physical Exam Vital Signs: Last Vital Signs Pulse 76 06/19/24 13:16 BP 128/66 06/19/24 13:16 Pulse Ox 99 06/19/24 13:16 Oxygen Delivery Method Room Air 06/19/24 13:16 BMI result Body Mass Index 32.0 Const General: cooperative, healthy appearing, comfortable, no acute distress, well developed and alert Nutritional Appearance: obese Orientation/consciousness: patient oriented x3 Limitations: no limitations HEENT Head: Yes normal to inspection, Yes normocephalic and Yes atraumatic Ears: hearing grossly normal bilaterally and external ears normal Eyes Sclerae: sclerae normal Neck Neck: Yes normal visual inspection and Yes no lymphadenopathy Lymphatic: no lymphadenopathy noted Chest Chest palpation & inspection: normal inspection of the chest Resp Effort & Inspection: normal respiratory effort, able to speak in complete sentences, no audible wheezes, no cough, no stridor, not tachypneic, no tripod positioning and no use of accessory muscles Auscultation: clear to auscultation bilaterally Cardio Jugular venous distension: no JVD Rate: regular rate Rhythm: regular rhythm Skin Other: warm, dry General skin exam: no rashes or lesions noted Neuro General: patient oriented x3 Cranial nerves: Yes Normal hearing present Cognition (Neuro): normal cognition Gait exam (Neuro): Normal gait present Extrem General: Yes normal to inspection, Yes capillary refill normal, Yes no clubbing, cyanosis or edema and Yes no pedal edema Psych Appearance: grossly normal and well kempt Speech and movement: Normal speech and movement present and Clear speech present Affect: normal affect Attitude: cooperative Thought process: Normal thought process present Thought content: Normal thought content present Insight: Good insight present (Psych) Judgement: Good judgement present (Psych) Assessment & Plan Assessment & Plan (1) COPD (chronic obstructive pulmonary disease): Code(s): J44.9 - Chronic obstructive pulmonary disease, unspecified Category: Medical (2) Obstructive sleep apnea: Code(s): G47.33 - Obstructive sleep apnea (adult) (pediatric) Category: Medical (3) Personal history of tobacco use: Code(s): Z87.891 - Personal history of nicotine dependence Category: Social Hx Plan Shane's symptoms are likely multifactorial with pulmonary and cardiac contribution. Encouraged patient to use Trelegy and will send DuoNeb for patient to trial as well as new nebulizer for home use. We did discuss if he has increased palpitations to discontinue and can send levalbuterol. Will obtain recent chest CT as well as PFT. We did discuss pulmonary rehab which he was interested in. If PFT greater than one year, will obtain updated test. Will also request prior records from [facility] including prior sleep study to assess severity of XAVIER, although he is not interested in repeating a sleep study nor attempting CPAP therapy again. All questions were answered and patient is in agreement of plan. Will follow up to review results or sooner if needed. Medications: Changed From ipratropium-albuterol 0.5 mg-3 mg(2.5 mg base)/3 mL 3 mL inhalation QID PRN Shortness Of Breath Or Wheezing To ipratropium-albuterol 0.5 mg-3 mg(2.5 mg base)/3 mL 3 mL inhalation TID PRN 180 mL 0RF Shortness Of Breath Or Wheezing Coding Level of Care Code New Pt Level 4 (44743) Diagnoses COPD (chronic obstructive pulmonary disease) J44.9 Obstructive sleep apnea G47.33 Personal history of tobacco use Z87.891
[2024-06-19 13:16] VITALS: BP 128/66; PULSE 76; O2SAT 99; BMI 32.0
--- OUTSIDE RECORDS SUMMARY | 2024-06-19 14:46 | XMS_ITS ---
Author Organization [facility] Address [address] [place] [address] Care Team Providers Care Cloud Physicist Name Role Phone Kojo Fermin MD Primary Care Provider Power De La Torre Jr [phone] REASON FOR VISIT MRI Problems Problem Type SNOMED Code ICD Code Onset Dates Problem Status W/U Status Risk Notes Problem 690986884 Liver lesion (K76.9) Active confirmed Problem 49120411 Pancreatic cyst (K86.2) Active confirmed Problem 157277513 Kidney cysts (N28.1) Active confirmed Encounters Encounter Location Date Provider Diagnosis [facility] [address] [place] [address] 03/06/2024 Power Barrera Jr Liver lesion K76.9 ; Pancreatic cyst K86.2 and Kidney cysts N28.1 Assessments Encounter Date Diagnosis (ICD Code) Assessment Notes Treatment Notes Treatment Clinical Notes Section Notes 03/06/2024 Liver lesion (ICD-10 - K76.9) 03/06/2024 Pancreatic cyst (ICD-10 - K86.2) 03/06/2024 Kidney cysts (ICD-10 - N28.1) Plan Of Treatment Pending Test Test Name Order Date BUN 03/06/2024 CREATININE 03/06/2024 MRI ABD W&WO CONTRAST 03/06/2024 Next Appt Details Provider Name:Power hall Jr, 03/07/2025 11:10:00 AM, [address], [address], [place], [address], Progress Notes * KAHLIL SIM DDOB: [birth year] (69 yo M)Acc No.[id number]:03/06/2024 Patient:KAHLIL MAYS :1955???Age:69 Y???Sex:Male Address:[address] [place] [address] [place] [address] Subjective: * Chief Complaints: * ???MRI * Medical History:? * Surgical History:? * Hospitalization/Major Diagno stic Procedure:? * Medications:? Objective: Assessment: * Assessment: 1.?Liver lesion - K76.9 (Leilani gilmer)?2.?Pancreatic cyst - K86.2?3.?Kidney cysts - N28.1? Plan: * Treatment: * 2.?Pancreatic cyst?LAB: BUN ?LAB: CREATININE ?Imaging: MRI ABD W&WO CONTRAST* MRCP Aniya Ivy 2023 03:23:20 PM EST >order faxed to CS for scheduling. * 3.?Kidney cysts?LAB: BUN ?LAB: CREATININE ?Imaging: MRI ABD W&WO CONTRAST* MRCP Aniya Ivy 2023 03:23:20 PM EST >order faxed to CS for scheduling. * * Procedure Codes:? * true * Date:? Generated for Karlie garcia/Lucero/eTransmitting on:?06/19/2024 02:46 PM EDT
--- OUTSIDE RECORDS SUMMARY | 2024-06-19 14:46 | XMS_ITS | Patient Health Record ---
Author Organization [facility] Address [address] [place] [address] Care Team Providers Care Schedule Manager Name Role Phone Kojo Fermin MD Primary Care Provider Teresitaa Power Dunbar Jr Unavailable [phone] Allergies No Known Allergies Results Component Value Reference Range Notes MR abdomen wo/w con Reviewed date:03/28/2024 02:59:50 PM Interpretation: Performing Lab: Notes/Report: [address] [address] Magnetic Resonance Report Signed Patient: Shane Sim MR#: [id number] : 1955 Acct:[id number] Age/Sex: 69 / M ADM Date: 03/24/24 Loc: HO.MRI Attending Dr: Power Barrera MD Ordering Physician: Power Barrera MD Date of Service: 03/24/24 Procedure(s): MR abdomen wo/w con Accession Number(s): [id number] cc: Kojo Fermin MD; Power Barrera MD [...] by: Kenny Peter MD 03/27/2024 11:41 AM EST Dictated By: Kenny Peter MD Signed By: <Electronically signed by Kenny Peter MD in OV> 03/27/24 1141 DD/ 0925 TD/TT: 03/24/24 1000 Aviation Safety Technician: [address] [address] Magnetic Resonance Report Signed Patient: Moo Sim MR#: [id number] : 1955 Acct:[id number] Age/Sex: 69 / M ADM Date: 03/24/24 Loc: HO.MRI Attending Dr: Sharlene Barrera MD Ordering Physician: Power Barrera MD Date of Service: 03/24/24 Procedure(s): MR abd omen wo/w con Accession Number(s): [id number] cc: Kojo Fermin MD ; Power Barrera MD EXAMINATION: MRI Abd omen without and with contrast HISTORY: LIVER LESIO N, PANCREATIC KIDNEY CYST COMPARISON: Comparis on is made with the prior examination dated 04/06/2022. TECHNIQUE: Axial in and out of phase T1-weighted gradient echo, axial diffusion weighted, and axial and coronal haste T2 with fat saturation images were obtained through the abdomen. 3D MRCP Reconstructed images and thick slab imagi ng of the biliary tree were obtained. Subsequently, fat olson ppressed axial and coronal T1-weighted images were obtained after the i ntravenous administration of 10 mL Gadavist. FINDINGS: There is m oderate diffuse loss of signal intensity within the liver on opposed phase imaging, consistent with steatosis. Again seen are numerous he patic cysts including a 3.4 cm cyst in the left lobe and a 3.[address] in the inferior right lobe, which demonstrates thin septations. Aga in seen is a 2.3 cm enhancing mass in the left lobe (series 17, image 40 ), without change. No additional enhancing liver mass is identified. The hepatic and portal veins are patent. There is no intra or extrahep atic biliary ductal dilatation. There is cholelithia sis. Again seen is a tiny 2-3 mm cyst in the body of the pancreas with out change. There may be an additional smaller cyst in the tail. No enha ncing pancreatic mass is identified. The spleen is unremarkable. Again seen is a 10 m m right adrenal nodule without definite loss of signal intensity on opposed phase imaging. The left adrenal gland is unremarkable. Again noted are multiple bilateral renal cysts, many of which demonstrate se ptations. The previously seen more complex appearing right bertrand l cyst is not definitely identified. No retroperitoneal lymphadenopathy or ascites is identified in the upper abdomen. M R/MR abdomen wo/w con IMPRESSION: 1. Hepatic steatosis . Cholelithiasis. Stable 10 mm nonspecific right adrenal mass. 2. Stable 2.3 cm enh ancing mass in the left lobe of the liver. 3. Stable tiny 2-3 m m cysts in the pancreas. These could be followed with MRI in 12 months. 4. Multiple hepatic and bilateral renal cysts, many of which demonstrate thin sep tations. These could also be followed-up at the time of follow-up of the pancreatic lesions. The previously seen more complex appearing ri ght renal lesion is not definitely identified. Electronically scott d by: Kenny Peter MD 03/27/2024 11:41 AM EST Dictated By: Kenny Peter MD Signed By: <Sandra elliott signed by Kenny Peter MD in OV> 03/27/24 1141 DD/ 0925 TD/TT: 03/24/24 1000 Aviation Safety Technician: Reason For Referral No Information Medications Medication SIG (Take, Route, Frequency, Duration) Notes [...] directed Orally O nce a day Active [place] 3 1000 MG 1 capsule Orally Onc e a day for 30 day(s) Active Eliquis 5 MG as directed Orally Active Incruse Ellipta 62.5 MCG/INH 1 puff Inha lation Once a day Active Ranolazine ER 500 MG 1 tablet Orally Twi ce a day for 30 day(s) Active Immunizations Vaccine Route Administration Date Status Comme nts Influenza Unknown 12/27/2018 Administered Influenza Unknown 12/21/2018 Administered Influenza Unknown 01/06/2022 Administered Influenza Unknown 02/09/2023 Administered Social History Tobacco Use: Social History Observation Description Date Details (start date - stop date) Former Smoker NA - NA Tobacco Use/Smoking Question Answer Notes Patient is [...] Never (0 point) Points 5 Interpretation Positive Problems Problem Type SNOMED Code ICD Code Onset Dates Problem Status W/U Status Risk Notes Problem 541537765 Colon cancer screening (Z12.11) Active confirmed Problem 66120308 Rectal bleeding (K62.5) Active confirmed Problem 913216141 Left lower quadrant pain (R10.32) Active confirmed Problem 52633924 Other cirrhosis of liver (K74.69) Active confirmed Problem 912093816 Chronic hepatitis C without hepatic coma (B18.2) Active confirmed Problem 821710268 Abnormal x-ray of liver (R93.2) Active confirmed Problem 319305008 Liver mass (R16.0) Active confirmed Problem 29867427 Pancreatic cyst (K86.2) Active confirmed Problem 3270365878195363 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) Active confirmed Problem 389045492 Liver lesion (K76.9) Active confirmed Problem 902127070 Focal nodular hyperplasia of liver (K76.89) Active confirmed Problem 167188902 Elevated liver function tests (R94.5) Active confirmed Problem 597268604 Kidney cysts (N28.1) Active confirmed Vital Signs Temperature 97.8 degrees Fahrenheit 03/06/2024 Blood pressure diastolic 00 mm Hg 03/06/2024 Height 73.5 in 03/06/2024 Blood pressure systolic 000 mm Hg 03/06/2024 Weight 240 lb 6 oz lbs 03/06/2024 BMI 31.28 kg/m2 03/06/2024 Encounters Encounter Location Date Provider Diagnosis [facility] [address] [place] [address] 03/06/2024 Power Barrera Jr Cedeno's esophagus with dysplasia K22.719 ; Colon cancer screening Z12.11 ; Other cirrhosis of liver K74.69 and Abnormal x-ray of liver R93.2 [facility] [address] [place] [address] 12/01/2023 Power Barrera Jr [facility] [address] [place] [address] 03/06/2024 Power Barrera Jr Liver lesion K76.9 ; Pancreatic cyst K86.2 and Kidney cysts N28.1 [facility] [address] [place] [address] 03/28/2024 Power Barrera Jr Assessments Encounter Date Diagnosis (ICD Code) Assessment Notes Treatment Notes Treatment Clinical Notes Section Notes 03/06/2024 Colon cancer screening (ICD-10 - Z12.11) At this time, he is stable respect to his GI issues. He willl continue famotidine. Followup will be in one year. We discussed followup endoscopy and colonoscopy is recommended today. Reviewing his chart he is due for MRI imaging for followup of liver and pancreatic cyst. This will be arranged. Today's visit was 30 minutes. 03/06/2024 Cedeno's esophagus with dysplasia (ICD-10 - K22.719) Cedeno esophagus material was printed At this time, he is stable respect to his GI issues. He willl continue famotidine. Followup will be in one year. We discussed followup endoscopy and colonoscopy is recommended today. Reviewing his chart he is due for MRI imaging for followup of liver and pancreatic cyst. This will be arranged. Today's visit was 30 minutes. 03/06/2024 Pancreatic cyst (ICD-10 - K86.2) 03/06/2024 Liver lesion (ICD-10 - K76.9) 03/06/2024 Other cirrhosis of liver (ICD-10 - K74.69) At this time, he is stable respect to his GI issues. He willl continue famotidine. Followup will be in one year. We discussed followup endoscopy and colonoscopy is recommended today. Reviewing his chart he is due for MRI imaging for followup of liver and pancreatic cyst. This will be arranged. Today's visit was 30 minutes. 03/06/2024 Kidney cysts (ICD-10 - N28.1) 03/06/2024 Abnormal x-ray of liver (ICD-10 - R93.2) At this time, he is stable respect to his GI issues. He willl continue famotidine. Followup will be in one year. We discussed followup endoscopy and colonoscopy is recommended today. Reviewing his chart he is due for MRI imaging for followup of liver and pancreatic cyst. This will be arranged. Today's visit was 30 minutes. Plan Of Treatment Pending Test Test Name Order Date BUN 05/26/2019 BUN 03/30/2022 BUN 01/26/2020 BUN 03/06/2024 CREATININE 05/26/2019 CREATININE 03/30/2022 CREATININE 01/26/2020 CREATININE 03/06/2024 LIVER PROFILE 04/23/2022 LIVER PROFILE 04/16/2019 LIVER PROFILE 03/30/2022 LIVER PROFILE 01/26/2020 LIVER PROFILE 03/29/2019 CBC w/o DIFF 04/23/2022 CBC w/o DIFF 04/16/2019 CBC w/o DIFF 03/30/2022 CBC w/o DIFF 03/29/2019 PROTHROMBIN TIME (PT, INR) 03/30/2022 PROTHROMBIN TIME (PT, INR) 04/23/2022 HEPATITIS A ANTIBODY-IGM 03/29/2019 HEPATITIS B SURFACE ANTIGEN 03/29/2019 HEPATITIS B SURFACE ANTIBODY 03/29/2019 HEPATITIS C VIRAL LOAD 03/29/2019 HEPATITIS C VIRAL LOAD 04/16/2019 HEPATITIS C GENOTYPE 03/29/2019 MRI ABD W&WO CONTRAST 01/18/2020 MRI ABD W&WO CONTRAST 03/06/2024 MRI ABD W&WO CONTRAST 03/30/2022 MRI ABD W&WO CONTRAST 05/26/2019 MRI ABD W&WO CONTRAST 01/26/2020 US ABD 06/07/2019 US ABD 09/20/2019 HEPATITIS B CORE ANTIBODY 03/29/2019 HEPATITIS A ANTIBODY-IGG 03/29/2019 HCV LIVER FIBROSIS, FIBRO TEST 0 Future Test Test Name Order Date COLONOSCOPY 08/15/2014 COLONOSCOPY 09/14/2018 UPPER GI ENDOSCOPY 03/30/2022 COLONOSCOPY 03/30/2022 UPPER GI ENDOSCOPY 04/23/2022 Next Appt Details Provider Name:Power Maya Deuce hall Jr, 03/07/2025 11:10:00 AM, [address], [address], [place], [address], Insurance Providers Payer Name Payer Address Payer Phone Subscriber Number Group Number Insured Name Patient Relationship to Insured Coverage Start Date Coverage End Date MEDICARE OF [place] [address] [place] [address] [id number] SHANE SIM Self - patient is the insured MEDICAID OF [email or web address] [address] [place] [phone] [id number] SHANE SIM Self - patient is the insured Medical (General) History Medical History History ICD Code Colon polyps, [...]
--- OUTSIDE RECORDS SUMMARY | 2024-06-19 14:46 | XMS_ITS ---
Author Organization [facility] Address [address] [place] [address] Care Team Providers Care Associate Dean Of Students Name Role Phone Kojo Fermin MD Primary Care Provider Power De La Torre Jr REASON FOR VISIT MRI Encounters Encounter Location Date Provider Diagnosis [facility] [address] [place] [address] 03/28/2024 Power Barrera Jr Plan Of Treatment Next Appt Details Provider Name:Power hall Jr, 03/07/2025 11:10:00 AM, [address], [address], [place], [address], Progress Notes * KAHLIL SIM DDOB: [birth year] (69 yo M)Acc No.[id number]:03/28/2024 Patient:?KAHLIL SIM :1955???Age:69 Y???Sex:Male Address: [place] [address] * true * Date:? Generated for Printi ng/Faxing/eTransmitting on:?06/19/2024 02:46 PM EDT
--- OUTSIDE RECORDS SUMMARY | 2024-06-19 14:46 | XMS_ITS | Clinical Summary ---
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 Patient is a former smoker with a [id number] history. He states during ambulation he has to take very frequent breaks due to feeling winded . He continues to have some discomfort along his surgical incisional sites however he states that it is manageable. 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 Encounters Date Type Department Care Team Description 05/29/2024 Telephone Pulmonolgy - [facility] [address] [facility] [address] [place] [address] Canelo Valles MD documentation request from Last 3 Months Immunizations Name Administration Dates Next Due Tdap Tetanus diptheria acell ular pertussis (Boostrix; Adacel) 7yo and older 04/18/2008 Surgical History Surgery Date Site/Laterality Comments OTHER SURGICAL HISTORY PROCEDURE: HISTORICAL SUBTOTAL THYROIDECTOMY; COMMENT: Benign thyroid nodule COLONOSCOPY 06/05/08 PROCEDURE: CA COLONOSCOPY STOMA DX INCLUDING COLLJ SPEC SPX; COMMENT: Up to cecum, ascending polyp removed:Adenomatous, Hepatic flexure polyp removed:TA, Sigmoid polyp removed:Hyperplastic. NOT removed 1 polyp at asceding and 2 polyps at transverse OTHER SURGICAL HISTORY PROCEDURE: CA RADIAL KERATOTOMY; COMMENT: left eye Medical History [...] 11/29/2023 9:15 AM EDT Plan of Treatment Health Maintenance Due Date Last Done Comments Pneumococcal Vaccine: 50+ Ye ars (1 of 1 - PCV) 01/08/2004 Zoster Vaccines (1 of 2) 01/08/2004 DTaP,Tdap,and Td Vaccines (2 - Td or Tdap) 04/18/2018 04/18/2008 Colorectal Cancer Screening: Colonoscopy 03/01/2022 Depression Screening 03/01/2022 Falls Risk Assessment 03/01/2022 Hepatitis C Screening 03/01/2022 Medicare Annual Wellness Visit 03/01/2022 Social Influencers of Health Screening 03/01/2022 COVID-19 Vaccine (1 - 2023-2 5 season) 2023 Influenza Vaccine (#1) 2023 Hypertension/CHF/CAD Annual BMP Blood Test 05/07/2024 05/07/2023 Cholesterol Screening (Lipid Panel) 01/15/2028 01/14/2023 RSV Immunization Patients 60 + Years Old (1 - 1-dose 75+ series) 2029 Abdominal Aortic Aneurysm (A AA) Screen Completed [...] Procedure Name Priority Date/Time Associated Diagnosis Comments POLYSOMNOGRAPHY Routine 06/16/2024 11:24 AM EDT ANNUAL BMP BLOOD TEST Routine 05/07/2023 LIPID PANEL Routine 01/14/2023 ABDOMINAL AORTIC ANEURYSM SCRREN Routine 08/02/2008 from Last 3 Months or Most Recently Relevant to Health Maintenance Results * Polysomnography (06/16/2024 11:24 AM EDT) Result [facility] Provider SLEEP CENTER ORDERABLES F inal Result * Annual BMP Blood Test (05/07/2023) Pathologist [facility] Annual BMP Blood Test abstracted Result [facility] Provider HEALTH MAINTENANCE Final Result * Lipid panel (01/14/2023) Pathologist [facility] LDL/HDL Ratio 0 0 - 0 Triglycerides 0 0 - 0 mg/dL Cholesterol 0 0 - 0 mg/dL HDL 0 0 - 0 mg/dL LDL Cholesterol 0 0 - 0 mg/dL Blood Venous blood specimen / Unknown [facility] Provider LAB BLOOD ORDERABLES Terese l Result * Abdominal Aortic Aneurysm Screen (08/02/2008) Pathologist [facility] Abdominal Aortic Aneurysm (AAA) Screening abstracted Anatomical Region Laterality Modality Other [facility] Provider HEALTH MAINTENANCE Final Result from Last 3 Months or Most Recently Relevant to Health Maintenance Insurance [place] Advance Directives Documents on File Type Date Recorded Patient Systems Designer Expl anation Health Care Decision (hx) 06/20/2021 [...] (hx) 06/18/2021 AD HURTADO DIRECTIVE Care Teams Central Sterile Supply Technician Relationship Specialty Start Date End Date Kojo Fermin MD [address] [place] [id number] PCP - General Internal Medicine 03/27/21
--- OUTSIDE RECORDS SUMMARY | 2024-06-19 14:47 | XMS_ITS ---
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 Medications Medication SIG (Take, Route, Frequency, Duration) [...] with food Oral Twice a day Active [place] 3 1000 MG 1 capsule Orally Onc e a day for 30 day(s) Active Lisinopril 40 MG 1 tablet Oral Once a day Active amLODIPine Besylate 10 MG 1 tablet Orall y Once a day Active Gabapentin 600 MG as directed Orally tid Active Eliquis 5 MG as directed Orally Active Social History Tobacco Use: Social History Observation [...] Problem Status W/U Status Risk Notes Problem [id number] Abnormal x-ray of liver (R93.2) Active confirmed Vital Signs Temperature 97.8 degrees Fahrenheit 03/06/20 24 Blood pressure systolic 000 mm Hg 03/06/20 24 Blood pressure diastolic 00 mm Hg 024 Height 73.5 in 03/06/2024 Weight 240 lb 6 oz lbs 03/06/2024 BMI 31.28 kg/m2 03/06/2024 Encounters Encounter Location Date Provider Diagnosis [facility] [address] [facility] [address] [place] [id number] 03/06/2024 Power Barrera Jr 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 Today's visit was 30 minutes. 03/06/2024 Colon cancer screening (ICD-10 - Z12.11) At this time, he is stable respect to his GI issues. He willl continue famotidine. Followup will be in one year. We discussed followup endoscopy and colonoscopy is recommended today. Reviewing his chart he is due for MRI imaging for followup of liver and pancreatic cyst. This will be arranged. Today's visit was 30 minutes. 03/06/2024 Other cirrhosis of liver (ICD-10 - [...] arranged. Today's visit was 30 minutes. 03/06/2024 Abnormal x-ray of liver (ICD-10 - [...] visit was 30 minutes. Plan Of Treatment Treatment Notes Assessment Notes Cedeno's esophagus with dysplasia [place] tt esophagus material was printed Next Appt Details Follow Up: 1 Year, Reason: Provider Name:Power hall , 03/07/2025 11:10:00 AM, [address] [facility], [address], [place], [address], Progress Notes * KAHLIL SIM DDOB: [birth year] (69 yo M)Acc No.[id number]:03/06/2024 Progress Notes Patient:?CHIQUIS KAHLIL Maya Provider:?Power Barrera MD :1955???Age:69 Y???Sex:Male Candido e:03/06/2024 Address:[address] [place] [address] [id number] Pcp:Kojo Fermin MD Subjective: * Chief Complaints: * ???1. Patient presents today for barretts esophagus. * HPI: ???New symptom(s):? The patient is a 69-year-old man seen today in followup of Cedeno's esophagus and colon cancer screening. We last saw him in November of last year. He reports reflux symptoms are well-controlled on famotidine 40 mg b.i.d. He has no dysphagia, hematemesis, or melena. Weight has gone up somewhat. Last endoscopy in October of 2022 showed no dysplasia on biopsy or WATS and three-year followup was recommended. We reviewed this today. ?His colonoscopy in 2022 showed multiple adenomas and he is due for followup in March 2025. He has no complaints of rectal bleeding or change in his bowel habits. ?He's had some problems with atrial fibrillation and is currently scheduled for third attempt at ablation. * Medical History:?Colon polyp s, colonoscopy 04/13, multiple adenomas, three-year followup, hepatitis C, F4 fibrosis, status post Harvoni x12 weeks with SVR, Hypertension, Depression, Back pain, Hyperlipidemia, coronary artery disease, [place] 12/2017, stent placement, Leg numbness., Anemia, COPD, XAVIER/CPAP, Kidney stones, Cedeno's esophagus, EGD 04/13, indefinite to low-grade dysplasia, followup EGD 11/11, and no dysplasia on biopsy or WATS, 2 year followup, Atrial fibrillation. * Surgical History:?eye surger y, left eye blindness , thyroid surgery , Coronary artery stent placement 12/2017, back surgery 2016, cardioversion x 2 . * Hospitalization/Major Diagno stic Procedure:?Right upper lobectomy 05/2021, a fib x 3 . * Family History:?Father: dece ased, diagnosed with Colon polyps.?Mother: 38 yrs.? The patient's father had a history of colon polyps. He is unsure of the type. NO family history of liver cancer. * Social History:?Tobacco Use:?Tobacco Use/Smoking?Patient is a?former smoker,?When did you stop smoking??2007,?How long has it been since you last smoked??> 10 years.?Drugs/Alcohol:?Alcohol Screen?Did you have a drink containing alcohol in the past year??Yes,?How often did you have a drink containing alcohol in the past year??4 or more times a week (4 points),?How many drinks did you have on a typical day when you were drinking in the past year??3 or 4 drinks (1 point),?How often did you have 6 or more drinks on one occasion in the past year??Never (0 point),?Points?5,?Interpretation?Positive.?Miscellaneous:?Marital status: . 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 * Medications:?Taking Eliquis 5 MG Tablet as directed Orally , Taking amLODIPine Besylate 10 MG Tablet 1 tablet Orally Once a day, Taking Lisinopril 40 MG Tablet 1 tablet Oral Once a day, Taking Gabapentin 600 MG Tablet as directed Orally tid, Taking Metoprolol Tartrate 50 MG Tablet 1 tablet with food Oral Twice a day, Taking Aspirin 81 MG Tablet Delayed Release 1 tablet Orally Once a day, Taking Pramipexole Dihydrochloride 0.125 MG Tablet 2 tablet Orally Once a day, Taking Atorvastatin Calcium 40 MG Tablet 1 tablet Orally Once a day, Taking [place] 3 1000 MG Capsule 1 capsule Orally Once a day, Taking Vitamin B12 500 as directed Orally Once a day, Taking Ranolazine ER 500 MG Tablet Extended Release 12 Hour 1 tablet Orally Twice a day, Taking Incruse Ellipta 62.5 MCG/INH Aerosol Powder Breath Activated 1 puff Inhalation Once a day, Taking Famotidine 40 MG Tablet Take 1 tablet by mouth twice daily , Taking Magnesium Oxide 400 MG Tablet TAKE 1 TABLET BY MOUTH ONCE DAILY Oral , Taking Allopurinol 100 MG Tablet Oral , Taking Colchicine 0.6 MG Tablet Oral , Taking Digoxin 125 MCG Tablet Oral , Taking Trelegy Ellipta 200-62.5-25 MCG/ACT Aerosol Powder Breath Activated Inhalation , Taking Vitamin B-12 1000 MCG Tablet TAKE 1 TABLET BY MOUTH IN THE MORNING Oral , Medication List reviewed and reconciled with the patient * Allergies:?N.K.D.A. Objective: * Vitals:?Wt: 240 lb 6 oz, Ht: 73.5 in, BMI:31.28 Index, BP: 000/00 mm Hg, Temp: 97.8. * Examination: ???General Examination: ???On examination today, he appears well. Skin is anicteric. Lungs are clear. Heart shows regular rate and rhythm. Abdomen is soft without focal masses or tenderness. Extremities show trace edema. Assessment: * Assessment: 1.?Cedeno's esophagus with dysplasia - K22.719 (Primary)?2.?Colon cancer screening - Z12.11?3.?Other cirrhosis of liver - K74.69?4.?Abnormal x-ray of liver - R93.2? At this time, he is stable r espect to his GI issues. He willl continue famotidine. Followup will be in one year. We discussed followup endoscopy and colonoscopy is recommended today. Reviewing his chart he is due for MRI imaging for followup of liver and pancreatic cyst. This will be arranged. Today's visit was 30 minutes. Plan: * Treatment: * Procedure Codes:?3017F COLOR ECTAL CA SCREEN DOC REV, G9903 Pt scrn tbco id as non user, G9745 DOC RSN FOR NOT SCREEN/REC F/U HBP * Preventive Medicine:? ??Counseling:?Care goal follow-up plan:?Above Normal BMI Follow-up?Giving encouragement to exercise,?BMI management provided?Yes.? ??Screenings:?Fall Risk Screening?Fall Risk Assessment:?One fall without injury in the past year,?Screening:?One fall without injury in the past year,?Assessment:?Not performed, no reason specified,?Plan of Care:?Documented,?Type of fall plan of care:?Balance, strength and gait training or instruction provided.? * Follow Up:?1 Year * * Sign off status: Completed true * Provider:?Power Barrera MD Date:?1 05/07/2023 Generated for Karlie garcia/Lucero/eTransmitting on:?06/19/2024 02:46 PM EDT History and Physical Notes * HPI (History of Present Illness) Category Sub-Category Detail Notes Category Not es New symptom(s) The patient is a 69-year-old man seen today in followup of Cedeno's esophagus and colon cancer screening. We last saw him in November of last year. He reports reflux symptoms are well-controlled on famotidine 40 mg b.i.d. He has no dysphagia, hematemesis, or melena. Weight has gone up somewhat. Last endoscopy in October of 2022 showed no dysplasia on biopsy or WATS and three-year followup was recommended. We reviewed this today. His colonoscopy in 2022 showed multiple adenomas and he is due for followup in March 2025. He has no complaints of rectal bleeding or change in his bowel habits. He's had some problems with atrial fibrillation and is currently scheduled for third attempt at ablation. Examination Category Sub-Category Detail Notes Category Not es General Examination On exami nation today, he appears well. Skin is anicteric. Lungs are clear. Heart shows regular rate and rhythm. Abdomen is soft without focal masses or tenderness. Extremities show trace edema.
--- OUTSIDE RECORDS SUMMARY | 2024-06-19 14:47 | XMS_ITS | Continuity of Care Document ---
Author Organization [facility] ter Address [address] [place] [id number] Care Team Providers Care Fun House Operator Name Role Phone Kojo Fermin MD Primary Care Physician [phone] Encounter [facility] Date(s): 06/12/24 - 06/16/[address] [address] Discharge Disposition: A-D/C Home Attending Physician: Alex CORADO, Sujatha Admitting Physician: Jonathan Pak MD Referring Physician: Not on Staff, Referring MD Encounter Type: Disch IP Allergies, Adverse Reactions, Alerts No Known Allergies Medications acetaminophen 325 mg oral tablet 650 mg, By Mouth, Every 6 hours, greater than 101.5, Not to exceed 4 GM of Tylenol per 24 hour period, Refills 0, Maintenance, 01/29/21 6:36:00 PM EST, Partial fill upon patient request if the prescription is for a schedule II opioid drug. Start Date: 01/29/21 Status: Ordered Repeat number: 1 Albuterol (Eqv-ProAir HFA) 90 mcg/inh inhalation aerosol 2 inhalation = 180 mcg, Inhalation, Every 6 hours, PRN as needed for shortness of breath or wheezing, # 8.5 Gm, 0 Refills, Maintenance, 06/12/24 2:37:00 PM EDT, Aerosol, Partial fill upon patient request if the prescription is for a schedule II opioid drug. Start Date: 06/12/24 Status: Ordered Quantity: 8.5 Unit: g Repeat number: 1 allopurinol 100 mg oral tablet 200 mg, 2, tablet, By Mouth, Daily, # 180 tablet, Refills 0, Maintenance, 06/12/24 2:28:00 PM EDT, Partial fill upon patient request if the prescription is for a schedule II opioid drug. Start Date: 06/12/24 Status: Ordered Quantity: 180.0 Unit: tablet Repeat number: 1 amiodarone 200 mg oral tablet 200 mg, 1, tablet, By Mouth, Daily, # 30 tablet, Refills 0, Maintenance, 06/12/24 2:42:00 PM EDT, Partial fill upon patient request if the prescription is for a schedule II opioid drug. Start Date: 06/12/24 Status: Ordered Quantity: 30.0 Unit: tablet Repeat number: 1 amLODIPine 10 mg oral tablet 10 mg, Tablet, By Mouth, 06/16/24 11:25:00 AM EDT Start Date: 06/16/24 Stop Date: 06/16/24 Status: Completed Repeat number: 1 amLODIPine 10 mg oral tablet = 10 mg, By Mouth, Daily in AM, 0 Refills, Maintenance, 04/10/15 3:56:28 PM EST, Tablet Start Date: 04/10/15 Status: Ordered Repeat number: 1 aspirin 81 mg oral delayed release tablet 81 mg, 1, tablet, By Mouth, Daily, # 30 tablet, Refills 0, Maintenance, 06/12/24 2:36:00 PM EDT, Partial fill upon patient request if the prescription is for a schedule II opioid drug. Start Date: 06/12/24 Status: Ordered Quantity: 30.0 Unit: tablet Repeat number: 1 atorvastatin 40 mg oral tablet 1 tablet = 40 mg, By Mouth, Daily, pm, 0 Refills, Maintenance, 01/24/21 3:59:00 PM EDT, Partial fillupon patient request if the prescription is for a schedule II opioid drug. Start Date: 01/24/21 Status: Ordered Repeat number: 1 colchicine 0.6 mg oral tablet 0.6 mg, 1, tablet, By Mouth, 2 times a day, for prophylaxis of gout flares: not to exceed 1.2 mg per day, # 60 tablet, Refills 0, Maintenance, 06/12/24 2:27:00 PM EDT, Partial fill upon patient request if the prescription is for a schedule II opioid drug. Start Date: 06/12/24 Status: Ordered Quantity: 60.0 Unit: tablet Repeat number: 1 Eliquis 5 mg oral tablet 1 tablet = 5 mg, By Mouth, 2 times a day, # 60 tablet, 5 Refills, Maintenance, 06/12/24 2:28:00 PM EDT, Tablet, Partial fill upon patient request if the prescription is for a schedule II opioid drug. Start Date: 06/12/24 Status: Ordered Quantity: 60.0 Unit: tablet Repeat number: 1 famotidine 20 mg oral tablet = 40 mg, By Mouth, Daily at bedtime, 0 Refills, Maintenance, 04/10/15 3:56:44 PM EST, Tablet Start Date: 04/10/15 Status: Ordered Repeat number: 1 FeroSul 325 mg oral tablet 1 tablet = 325 mg, By Mouth, Every other day Start Date: 06/12/24 Status: Ordered Repeat number: 1 gabapentin 600 mg oral tablet 1 tablet = 600 mg, By Mouth, 3 times a day, # 270 tablet, 0 Refills, Maintenance, 06/12/24 2:29:00 PM EDT, Tablet, Partial fill upon patient request if the prescription is for a schedule II opioid drug. Start Date: 06/12/24 Status: Ordered Quantity: 270.0 Unit: tablet Repeat number: 1 magnesium oxide 400 mg oral tablet 1 tablet = 400 mg, By Mouth, Daily Start Date: 06/12/24 Status: Ordered Repeat number: 1 multivitamin Lipotropic with Multivitamins oral tablet 1 tablet, By Mouth, Daily, # 30 tablet, 0 Refills, Maintenance, 06/12/24 2:36:00 PM EDT, Tablet, Partial fill upon patient request if the prescription is for a schedule II opioid drug. Start Date: 06/12/24 Status: Ordered Quantity: 30.0 Unit: tablet Repeat number: 1 Cypress-3 oral capsule = 1 Gm, By Mouth, 2 times a day, 0 Refills, Maintenance, 01/17/19 7:42:35 AM EDT Start Date: 01/17/19 Status: Ordered Repeat number: 1 Trelegy Ellipta 1 puff, Inhalation, Daily, am, 0 Refills, Maintenance, 01/24/21 3:56:00 PM EDT, Partial fill upon patient request if the prescription is for a schedule II opioid drug. Start Date: 01/24/21 Status: Ordered Repeat number: 1 Vitamin B-12 1000 mcg oral tablet 1,000 mcg, 1, tablet, By Mouth, Daily, # 30 tablet, Refills 0, Maintenance, 06/12/24 2:29:00 PM EDT,Partial fill upon patient request if the prescription is for a schedule II opioid drug. Start Date: 06/12/24 Status: Ordered Quantity: 30.0 Unit: tablet Repeat number: 1 Problem List Condition Confirmation Course Effective Dates Status H ealth Status Informant COPD (chronic obstructive pulmonary disease) Confirmed Active CAD in [place] artery Confirmed Active GERD (gastroesophageal reflux disease) Confirmed Active Chronic gout Confirmed Active History of percutaneous coronary intervention Confirmed Active Hypomagnesemia Confirmed Active Lumbosacral radiculitis Confirmed Active Moderate aortic stenosis Confirmed Active Obese class I Confirmed Active Paroxysmal atrial fibrillation Confirmed Active Paroxysmal atrial flutter Confirmed Active PVD (peripheral vascular disease) with claudication Confirmed Active Failed back surgical syndrome Confirmed Active Results Radiology Reports * Exam Date Time Procedure Performing Provider Status 06/16/24 5:16 AM Chest 2 Views Frontal and Lat Mahsa Iqbal (Verified) Notes: (Chest 2 Views Frontal and Lat) Reason For Exam: Postop RESULT: Chest 2 Views Frontal and Lat Examination: Chest performed on 06/16/2024. History: Line placement Findings: Frontal and lateral views of the chest are compared to a prior study dated 06/15/2024. Pacer is present. The cardiac and mediastinal silhouettes are within normal limits. The lungs are clear. There are trace pleural effusions. The osseous and soft tissue structures are unremarkable. Impression: Trace pleural effusions. Pacer. WSN: [id number] Ordering Physician: Jonathan Pak Dictated By: Katie Hernadez MD Dictated Date/Time: 06/16/24 8:37 am Reviewed By: Katie Hernadez MD Signed By: Katie Hernadez MD Signed Date/Time: 06/16/24 8:37 am Transcribed By: MAY Transcribed Date/Time: 06/16/24 8:35 am * Exam Date Time Procedure Performing Provider Status 06/15/24 7:07 PM Chest Portable Darcy Vidal; Gloria (Verified) Notes: (Chest Portable) Reason For Exam: Line Placement RESULT: Chest Portable Chest Portable Reason: Line Placement; Clinical Question(s): Pneumothorax COMPARISON: 06/14/2024 and 06/13/2024 FINDINGS: LINES AND TUBES: Interval placement of Dual-lead left subclavian pacer/AICD wires, which are intact. LUNGS AND PLEURA: Mild prominence of the central pulmonary vasculature without overt interstitial pulmonary edema. Mild left basilar atelectasis. No focal opacity in the right lung. No pleural effusion. No pneumothorax. HEART, MEDIASTINUM AND LIANNE: Prominent cardiac silhouette. Normal mediastinal and hilar contour. BONES AND SOFT TISSUES: No acute abnormality. IMPRESSION: Interval placement of dual-lead pacemaker with battery pack in the left upper chest wall. No pneumothorax. Mild bilateral central vascular congestion without overt interstitial pulmonary edema and mild leftbasilar atelectasis. WSN: [id number] Ordering Physician: Jonathan Pak Dictated By: Alma Raza MD Dictated Date/Time: 06/15/24 7:17 pm Reviewed By: Alma Raza MD Signed By: Alma Raza MD Signed Date/Time: 06/15/24 7:17 pm Transcribed By: MAY Transcribed Date/Time: 06/15/24 7:15 pm * Exam Date Time Procedure Performing Provider Status 06/14/24 8:31 PM Chest Portable Aparicio , Fabien; Auth (Verified) Notes: (Chest Portable) Reason For Exam: Placement of temp pacemaker;Line Placement RESULT: Chest Portable Chest Portable Reason: Line Placement; Placement of temp pacemaker; Clinical Question(s): Line Placement COMPARISON: 06/13/2024 FINDINGS: LINES AND TUBES: None. LUNGS AND PLEURA: Low lung volumes with mild basilar atelectasis. Lungs are otherwise clear with no consolidation. No pleural effusion. No pneumothorax. HEART, MEDIASTINUM AND LIANNE: Heart is normal in size. Normal mediastinal and hilar contour. BONES AND SOFT TISSUES: No acute abnormality. IMPRESSION: No acute abnormality. WSN: [id number] Ordering Physician: Sandoval Santos Dictated By: Puma Hickman MD Dictated Date/Time: 06/14/24 9:02 pm Reviewed By: Puma Hickman MD Signed By: Puma Hickman MD Signed Date/Time: 06/14/24 9:02 pm Transcribed By: MAY Transcribed Date/Time: 06/14/24 8:51 pm * Exam Date Time Procedure Performing Provider Status 06/13/24 9:17 PM Chest Portable Aparicio Fabien; Auth (Verified) Notes: (Chest Portable) Reason For Exam: Line Placement RESULT: Chest Portable Chest Portable Reason: Line Placement; Clinical Question(s): Line Placement COMPARISON: None. FINDINGS: LINES AND TUBES: Inferior approach transvenous pacing lead wire tip overlies the right ventricle. LUNGS AND PLEURA: Clear lungs. Normal pulmonary vascularity. No pleural effusion. No pneumothorax. HEART, MEDIASTINUM AND LIANNE: Mild prominence of the cardiac silhouette. Aorta is calcified. BONES AND SOFT TISSUES: No acute abnormality. IMPRESSION: Inferior approach transvenous pacing lead wire tip overlies the right ventricle. WSN: [id number] Ordering Physician: Hue Lewis Dictated By: Oracio Yun MD Dictated Date/Time: 06/13/24 11:15 p Reviewed By: Oracio Yun MD Signed By: Oracio Yun MD Signed Date/Time: 06/13/24 11:15 pm Transcribed By: MAY Transcribed Date/Time: 06/13/24 11:14 pm Vital Signs Most recent to oldest [Reference Range]: 1 2 3 Height 183 cm (06/14/24 5:19 AM) 183 cm (06/13/24 4:40 AM) 183 cm (06/12/24 10:05 PM) Weight 107.3 kg (06/16/24 4:00 AM) 106.4 kg (06/15/24 4:00 AM) 109.1 kg (06/14/24 5:19 AM) Oxygen Saturation [94-100 %] 95 % (06/16/24 12:00 PM) 97 % (06/16/24 10:09 AM) 92 % *L* (06/16/24 8:00 AM) Pulse Rate [55-90 bpm] 76 bpm (06/16/24 12:00 PM) 73 bpm (06/16/24 8:00 AM) 66 bpm (06/16/24 4:00 AM) Body Mass Index [18.5-24.99 kg/m2] 31.08 kg/m2 *>HHI* (06/13/24 4:40 AM) 33 kg/m2 *>HHI* (06/12/24 8:10 AM) Blood Pressure [90-138/55-84 mm Hg] 131/82mm Hg (06/16/24 12:00 PM) 134/77mm Hg (06/16/24 11:14 AM) 132/75mm Hg (06/16/24 10:00 AM) Respiratory Rate [16-30 br/min] 16 br/min (06/16/24 12:00 PM) 17 br/min (06/16/24 10:09 AM) 19 br/min (06/16/24 10:08 AM) Temperature [96.8-100.4 DegF] 97.9 DegF (06/16/24 12:00 PM) 97.9 DegF (06/16/24 8:00 AM) 97.8 DegF (06/16/24 4:00 AM) Liters per Minute 2 L/min (06/16/24 8:00 AM) 2 L/min (06/16/24 6:00 AM) 2 L/min (06/16/24 4:00 AM) Mode of Delivery (Oxygen) Room air (06/16/24 12:00 PM) Room air (06/16/24 10:09 AM) Nasal cannula (06/16/24 8:00 AM) Blood pressure sites Arm, right (06/16/24 12:00 PM) Arm, right (06/16/24 8:00 AM) Arm, right (06/16/24 6:00 AM) Temperature Route Oral (06/16/24 12:00 PM) Oral (06/16/24 8:00 AM) Oral (06/16/24 4:00 AM) Dry Weight 110.5 kg (06/12/24 8:10 AM) Weight Obtained Via Bed scale (06/16/24 4:00 AM) Bed scale (06/15/24 4:00 AM) Bed scale (06/14/24 4:00 AM) Social History Social History Type Response Smoking Status Former smoker, quit more than 30 days ago;Never; Other: Quit 14 years ago; entered on: 06/13/24 Sex Sex Representation Male (finding) Note * Event Display: Hemodynamic Procedure Report Authored Date: [id number] * Lina Diamond RN: PERFORM Event Display: Discharge/Transfer Note Hospital Authored Date: [id number] Nursing Discharge Note Entered On: 06/16/2024 13:16 EDT Performed On: 06/16/2024 13:15 EDT by Lina Diamond RN Nursing Discharge Note 2 Discharge Time : 06/16/2024 13:15 EDT Discharge Level of Care at Discharge : Home/Penitentiary/Foster Care Patient Left Unit Via : Wheelchair Patient Accompanied Off Unit with : Responsible adult DC Instructions Provided & Signed by Pt : Yes Patient Understands D/C Instructions : Yes Patient Instructions Discharge Signed : Yes Did Pt have Specialty Bed or Wound Vac : No Lina Diamond RN - 06/16/2024 13:15 EDT * Nina CORADO, Any Terrell: PERFORM Event Display: Discharge/Transfer Note Hospital Authored Date: [id number] Patient: ??SHANE SIM ? Age:??69 Years?Sex:??Male?:??1955?? Patient Information Discharge Location: Primary Care Physician: Kojo Fermin MD Admit Date/Time: 06/12/2024 10:41 Discharge Disposition Discharge Disposition: Home: No Services Discharge Diagnosis PVD (peripheral vascular disease) with claudication (I73.9) Chronic gout (M1A.9XX0) GERD (gastroesophageal reflux disease) (K21.9) COPD (chronic obstructive pulmonary disease) (J44.9) Hypomagnesemia (E83.42) Paroxysmal atrial fibrillation (I48.0) Paroxysmal atrial flutter (I48.92) CAD in [place] artery (I25.10) History of percutaneous coronary intervention (Z98.61) Presence of temporary transvenous cardiac pacemaker (Z95.0) S/P ablation of atrial fibrillation (Z98.890) Lumbosacral radiculitis (M54.17) _ Discharge Medications Acetaminophen (acetaminophen 325 mg oral tablet)??650 Milligram By Mouth Every 6 hours greater [id number], Not to exceed 4 GM of Tylenol per 24 hour period Albuterol (Albuterol (Eqv-ProAir HFA) 90 mcg/inh inhalation aerosol)??2 inhalation 180 Microgram Inhalation Every 6 hours as needed as needed for shortness of breath or wheezing Allopurinol (allopurinol 100 mg oral tablet)??200 Milligram 2 tablet By Mouth Daily amiODARONE (amiodarone 200 mg oral tablet)??200 Milligram 1 tablet By Mouth Daily Amlodipine (amLODIPine 10 mg oral tablet)??10 Milligram By Mouth Daily in AM apixaban (Eliquis 5 mg oral tablet)??1 tab(s) 5 Milligram By Mouth 2 times a day Aspirin (aspirin 81 mg oral delayed release tablet)??81 Milligram 1 tablet By Mouth Daily Atorvastatin (atorvastatin 40 mg oral tablet)??1 tab(s) 40 Milligram By Mouth Daily pm Colchicine (colchicine 0.6 mg oral tablet)??0.6 Milligram 1 tablet By Mouth 2 times a day for prophylaxis of gout flares: not to exceed 1.2 mg per day Cyanocobalamin (Vitamin B-12 1000 mcg oral tablet)??1,000 Microgram 1 tablet By Mouth Daily Famotidine (famotidine 20 mg oral tablet)??40 Milligram By Mouth Daily at bedtime Ferrous Sulfate (FeroSul 325 mg oral tablet)??1 tab(s) 325 Milligram By Mouth Every other day fluticasone/umeclidinium/vilanterol (Trelegy Ellipta)??1 puff Inhalation Daily am Gabapentin (gabapentin 600 mg oral tablet)??1 tab(s) 600 Milligram By Mouth 3 times a day Magnesium Oxide (magnesium oxide 400 mg oral tablet)??1 tab(s) 400 Milligram By Mouth Daily Multivitamin (multivitamin Lipotropic with Multivitamins oral tablet)??1 tab(s) By Mouth Daily Cypress-3 Polyunsaturated Fatty Acids (Cypress-3 oral capsule)??1 gram By Mouth 2 times a day ? Medications Started None Medications Discontinued None Doses Changed None PCP Follow-Up/Heads-Up Patient underwent permanent pacemaker placement on 06/15/24 for complete heart block and is now stable. Okay to resume all home meds. Cardiology follow up arranged for 07/17 and EP follow up pending. Hospital Course Shane iSm is a 69-year-old male with a history of paroxysmal A-fib/A-flutter on Eliquis, gout,COPD, GERD, chronic hypomagnesemia, obesity, CAD s/p PCI, moderate , and PVD who is being transferred to the PCU after ablation and temporary pacemaker placement. He originally presented to [facility] for dofetilide loading for atrial flutter. He has a history of ablations (10/2023, 03/2024) with AF recurrence weeks after. EKG 04/2024 verified he was again in atrial flutter. He was loaded with dofetilidein preparation for a cardioversion 06/13 for symptomatic A-flutter, but on the day of the planned procedure a provider was not available, and after discussion with the team the patient opted for another ablation. Patient was observed to be in NSR intermittently paced in the 60s. Initially plan was to discharge without PPM since patient was in [place] rhythm overnight. However, on 06/14 patient was then noted to be in 3rd degree heart block and plans for DC PPM were scheduled. Patient received PPM without complications and was observed overnight. PPM interrogated without any issues. He is now ready for discharge home with close follow up. ?? Paroxysmal atrial fibrillation (I48.0) Paroxysmal atrial flutter (I48.92) S/P ablation of atrial fibrillation (Z98.890) Presence of temporary transvenous cardiac pacemaker (Z95.0) S/p PPM for complete heart block ??Pt has history of ablations (10/2023, 03/2024) with AF recurrence weeks after. EKG 04/2024 verified he was again in atrial flutter. ??Was originally planned for cardioversion, got 2 doses dofetilide 06/12, but on the planned day 06/13 it was cancelled. Pt was offered ablation instead which he accepted. ??After ablation pt was in NSR with rates in the 30s, temporary pacemaker was placed, base 54 BPMS/p PPM placement on 06/15/24 PM with intermittent pacing HR in 70s Development of complete heart block while inpatient No evidence of hematoma at site and patient was ambulatory on floor without associated symptoms ? Plan: ??-Follow up with PCP within 1 week - EP follow up for wound check in 1 week to be arranged - Follow up with Dr. Em arranged for 07/17/24 - Restart home amlodipine, amiodarone ??-Resume home Eliquis tonight ? PVD (peripheral vascular disease) with claudication (I73.9):??Resume home gabapentin on discharge Chronic gout (M1A.9XX0):??Continue colchicine, hold allopurinol GERD (gastroesophageal reflux disease) (K21.9):??Continue famotidine COPD (chronic obstructive pulmonary disease) (J44.9):??Continue PRN albuterol rescue, restart home Trelegy Hypomagnesemia (E83.42):??Continue magnesium oxide Lumbosacral radiculitis (M54.17):??Continue home pain management regimen. ?? Objective Assessment and Plan ? Measurements?? Height: 183 cm (06/14/24) Weight: 107.3 kg (06/16/24) Dry Weight: 110.5 kg (06/12/24) Body Mass Index:??31.08 kg/m2??Critical (06/13/24) ? Vital Signs?? Temperature: 97.9 DegF (06/16/24 08:00:00) Temperature Route: Oral (06/16/24 08:00:00) Pulse Rate: 73 bpm (06/16/24 08:00:00) Heart Rate Monitored: 90 bpm (06/16/24 10:09:05) Respiratory Rate: 17 br/min (06/16/24 10:09:05) Systolic Blood Pressure: 134 mm Hg (06/16/24 11:14:00) Diastolic Blood Pressure: 77 mm Hg (06/16/24 11:14:00) Blood pressure sites: Arm, right (06/16/24 08:00:00) Pulse Pressure: 57 mm Hg (06/16/24 10:00:00) Oxygen Saturation: 97 % (06/16/24 10:09:05) Liters per Minute: 2 L/min (06/16/24 08:00:00) Mode of Delivery (Oxygen): Room air (06/16/24 10:09:00) Early Warning Score: 3 (06/16/24 11:14:57) ? . Physical Exam Constitutional: Alert, in no distress. 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 Respiratory: Clear to auscultation. No wheezing, rales or rhonchi. Cardiovascular: Murmurs at S1 and S2, best heard at apex Gastrointestinal: Abdomen soft, but distended. Genitourinary: No costovertebral angle tenderness,groin access sites without any bleeding. Neurologic: Cranial nerves II-XII grossly intact. No focal neurological deficits.?? Skin: No rashes or lesions. Extensive bruising of forearms bilaterally. Musculoskeletal: No cyanosis or clubbing. No gross deformities.No pitting edema noted Psychiatric: Normal mood and affect. Consultants Electrophysiology Pending Results Add On Lab Order ordered on 06/14/2024 Patient Education Titles [employer] Patient Education - Discharge Instructions for Pacemaker Implantation?? [employer] Patient Education - Living with a Pacemaker?? [employer] Patient Education - New Pacer Instructions?? Follow-Up Appointments Added Follow Up ?Time Frame ?Comments Kojo Fermni MD?Within one week Patient Instructions DIAGNOSIS:??Atrial fibrillation/Atrial Flutter with Complete Heart Block? TEST RESULTS:??Your Heart Echocardiogram showed an ejection fraction of 60-65% with moderate LVH. You received an ablation with a temporary pacemaker before you were noted to be in complete heart block on??your??ECG??requiring a permanent DC??pacemaker. There is nothing further you need to do with this information.? You will get a temporary ID card that tells you the type of device and leads you have, the device beam sealer, the date of the device implant and the doctor???s name who implanted the device. You will get a permanent card from the device company within 3 months. It is important to carry this card at all times in case you need medical attention. ?? Return to emergency department if new or worsening symptoms such as loss of consciousness, increased shortness of breath, palpitations, chest pain, vomiting, fever, chills, diarrhea, swelling, confusion, vision changes, feeding difficulties, or any other concerning new or worsening symptoms occur.? 1. Keep chest incision site dry for 7 days. 2. No lifting more than 10 lbs with left arm for 1 month. 3. No driving for 2 weeks. 4. Wear left arm sling continuously for 24 hours, then wear at night when sleeping for 2 weeks. 5. Follow up in EP clinic in 7-10 days for incision site check.?? 6. No reaching behind the back with left arm or raising the left arm above shoulder level for 4 weeks.?? 7. Continue home meds??as before. Resume Darlingis on 06/16/24 night.?? Post Discharge Care Discharge ?06/16/24 12:04:00 EDT ?Order Comment:?? Home Health Face to Face ^[email or web address] Results Discharge Labs BLOOD COUNT & DIFF WBC 8.2 k/mm3 ()?? 06/16/2024 05:25 RBC 3.64 m/mm3 (Low)?? 06/16/2024 05:25 Hgb 10.5 Gm/dL (Low)?? 06/16/2024 05:25 Hct 32.5 % (Low)?? 06/16/2024 05:25 MCV 89.3 femtoliters ()?? 06/16/2024 05:25 MCH 28.8 pg ()?? 06/16/2024 05:25 MCHC 32.3 Gm/dL (Low)?? 06/16/2024 05:25 Platelet Count 161 k/mm3 ()?? 06/16/2024 05:25 RDW-SD 49.8 femtoliters (High)?? 06/16/2024 05:25 MPV 10.4 femtoliters ()?? 06/16/2024 05:25 Nucleated RBC (Automated) 0.0 #/100 WBC'S ()?? 06/16/2024 05:25 Abs. NRBC 0.0 k/mm3 ()?? 06/16/2024 05:25 Abs. Neut 7.0 k/mm3 ()?? 06/15/2024 01:00 Abs. Lymph 1.9 k/mm3 ()?? 06/15/2024 01:00 Abs. [place] 1.3 k/mm3 ()?? 06/15/2024 01:00 Abs. Eo 0.1 k/mm3 ()?? 06/15/2024 01:00 Abs. Baso 0.0 k/mm3 ()?? 06/15/2024 01:00 Neut % 67.0 % ()?? 06/15/2024 01:00 Lymph % 18.4 % ()?? 06/15/2024 01:00 [place] % 12.1 % (High)?? 06/15/2024 01:00 Eos % 1.1 % ()?? 06/15/2024 01:00 Baso % 0.3 % ()?? 06/15/2024 01:00 Imm Gran 1.1 % ()?? 06/15/2024 01:00 Abs. Imm Gran 0.1 k/mm3 ()?? 06/15/2024 01:00 ?? CHEM GENERAL Sodium 131 mmol/L (Low)?? 06/16/2024 05:25 Potassium 5.0 mmol/L ()?? 06/16/2024 05:25 Chloride 98 mmol/L ()?? 06/16/2024 05:25 Bicarbonate Level 20 mmol/L (Low)?? 06/16/2024 05:25 Anion Gap 13 mmol/L ()?? 06/16/2024 05:25 Glucose Level 136 mg/dL (High)?? 06/16/2024 05:25 BUN 17 mg/dL ()?? 06/16/2024 05:25 Creatinine-Blood 0.84 mg/dL ()?? 06/16/2024 05:25 Estimated GFR Creatinine 94 ML/MIN/1.73 M2 ()?? 06/16/2024 05:25 Calcium 9.6 mg/dL ()?? 06/16/2024 05:25 Calcium, Ionized pH Corrected 1.24 mmol/L ()?? 06/16/2024 05:25 Phosphorus 3.9 mg/dL ()?? 06/16/2024 05:25 Magnesium 2.2 mg/dL ()?? 06/16/2024 05:25 Protein, Total 6.7 Gm/dL ()?? 06/16/2024 05:25 Albumin 4.0 Gm/dL ()?? 06/16/2024 05:25 AG Ratio 1.5 ()?? 06/16/2024 05:25 Alkaline Phosphatase 86 units/L ()?? 06/16/2024 05:25 AST (SGOT) 31 units/L ()?? 06/16/2024 05:25 ALT (SGPT) 23 units/L ()?? 06/16/2024 05:25 Bilirubin, Total 0.4 mg/dL ()?? 06/16/2024 05:25 ?? COAG POC ACT-LR 254.0 seconds ()?? 06/13/2024 14:55 ? HEME OTHER Hold Lavender Top SPECIMEN DISCARDED AFTER 24 HOURS. ()?? 06/14/2024 07:46 ? URINE OTHER Est Creatinine Clearance 89.94 mL/min ()?? 06/16/2024 06:58 ? Imaging ? (06/16/2024 05:16 EDT Chest 2 Views Frontal and Lat) Findings: ?? Frontal and lateral views of the chest are compared to a prior study dated 06/15/2024. ?? Pacer is present. The cardiac and mediastinal silhouettes are within normal limits. The lungs are clear. There are trace pleural effusions. The osseous and soft tissue structures are unremarkable. ?? Impression: ?? Trace pleural effusions. Pacer. [1] ?? 30??minutes spent on discharge Patient care discussed with Dr. Johnson ?? Thank you for allowing me to partake in your care. Any Wood MD PGY-3 Internal Medicine/Pediatrics ?? [1]??Chest 2 Views Frontal and Lat; Maricarmen CORADO , Katie Dallas 06/16/2024 05:16 EDT * Alex CORADO, Ashequl: PERFORM Event Display: Discharge/Transfer Note Hospital Authored Date: [id number] Attending Attestation: I have seen and evaluated this patient.?? I have discussed the case and its management with the cardiovascular fellow, Dr. Velasquez, resident Dr. Wood??and CCU team and agree with the findings and plan as documented in the resident???s note.?? * Lina Diamond RN: PERFORM Event Display: Patient Education/Instruction Authored Date: [id number] Inpatient Adult Discharge Instructions. [address] [address] Name: SHANE SIM : 1955?? Visit: 06/12/2024 10:41?? Current Date: 06/16/2024 12:36 ?? Account: [id number]?? Inpatient Adult Discharge Instructions We would like to thank you for allowing us to assist you with your healthcare needs. The following includes patient education materials and information regarding your injury/illness. Our entire staffstrives to provide an excellent experience for our patients and their families. PLEASE ENSURE YOU FOLLOW-UP PER THE INSTRUCTIONS BELOW! ?? YOUR OPINION IS IMPORTANT TO US! Please complete the survey you may receive by mail or email. Your feedback will be used to make improvements to the healthcare experiences of our patients and their families. Surveys are administered by [employer] ?? If further treatment with your primary care physician or another doctor is recommended, it is important for you to keep the appointment. Call your primary care physician or return to the Emergency Department immediately if your condition worsens, fails to improve, or new symptoms develop. If you need to find a doctor, you can call [facility] [employer] Link for a referral at [phone] or toll free at [phone] or log in to [email or web address].. ?? [facility], in keeping with [facility] guidance, no longer requires face masks for staff, patientsor visitors in most situations. Similiar to time spent indoors at other locations, there is the chance that you were exposed to repiratory viruses during your time with us (such as flu or COVID-19). If you develop symptoms concerning for a viral respiratory infection, please seek testing (and treatment if indicated) from your medical provider or home test kit. ?? You can view and manage your care through the patient portal or by using a health care akua of your choosing. [employer] is a website that allows you to securely view your medical information including your hospital discharge summary, office visit summaries, medications and follow-up visits. You can also request appointments, renew medications, and request access to your medical information using a health care akua of your choosing, or just ask a question. You are entitled to know the individuals who participated in your treatment. This information is available within your medical record and will be provided upon your request. You can enroll at [email or web address] or register d uring your next office visit. You have been discharged from [facility], Patient Care Unit: M5??. If you have any questions regarding these instructions, including results of studies pending, afteryou leave, please call us and we will be happy to assist you 12/10. [facility] Your Care Team Attending Physician Sujatha Johnson MD?? Consulting Providers Sujatha Johnson MD?? Discharging Providers Any Wood MD Your Diagnosis CAD in [place] artery Chronic gout COPD (chronic obstructive pulmonary disease) GERD (gastroesophageal reflux disease) History of percutaneous coronary intervention Hypomagnesemia Lumbosacral radiculitis Paroxysmal atrial fibrillation Paroxysmal atrial flutter Presence of temporary transvenous cardiac pacemaker PVD (peripheral vascular disease) with claudication S/P ablation of atrial fibrillation Tests Performed Below is a partial list of the tests performed during your hospitalization. You may have had other tests and procedures not included in this list. Please discuss all test results with your provider. Basic Metabolic Panel BUN CBC CBC w/ Differential Comprehensive Metabolic Panel Creatinine H + H HOLD LAVENDER TUBE Ionized Calcium Magnesium Level Phosphorus Level POC Hemochron ACT-LR CXR Portable Portable Chest XR Chest 2 Views Frontal and Lat XR Chest Portable Add On Lab Order?? BUN?? Basic Metabolic Panel?? CBC?? CBC w/ Differential?? Comprehensive Metabolic Panel?? Creatinine?? Hgb + Hct (H + H)?? Hold Lavender Top Tube (HOLD LAVENDER TUBE)?? Ionized Calcium?? Magnesium Level?? POC ACT-LR (POC Hemochron ACT-LR)?? Phosphorus Level?? Chest 2 Views Frontal and Lat (XR Chest 2 Views Frontal and Lat)?? Chest Portable (XR Chest Portable)?? Primary Care Provider Kojo Fermin MD? Advance Directive Health Care Proxy on File Yes - Health Care Proxy Patient has a Designated Caregiver: No Discharge Vitals Temperature: 97.9 DegF Height: 183 cm Pulse Rate: 73 bpm Weight: 107.3 kg Respiratory Rate: 17 br/min Body Mass Index:??31.08 kg/m2??Critical Systolic Blood Pressure: 134 mm Hg Body surface area: 2.3 Diastolic Blood Pressure: 77 mm Hg ?? Oxygen Saturation: 97 % ?? Studies Pending All studies ordered during this hospital stay have been completed unless listed below. Please discuss all pending results with your provider listed above in these instructions. ?? Add On Lab Order?? What to do next Instructions From Your Doctor DIAGNOSIS:??Atrial fibrillation/Atrial Flutter with Complete Heart Block? TEST RESULTS:??Your Heart Echocardiogram showed an ejection fraction of 60-65% with moderate LVH. You received an ablation with a temporary pacemaker before you were noted to be in complete heart block on??your??ECG??requiring a permanent DC??pacemaker. There is nothing further you need to do with this information.? You will get a temporary ID card that tells you the type of device and leads you have, the device beam sealer, the date of the device implant and the doctor???s name who implanted the device. You will get a permanent card from the device company within 3 months. It is important to carry this card at all times in case you need medical attention. ?? Return to emergency department if new or worsening symptoms such as loss of consciousness, increased shortness of breath, palpitations, chest pain, vomiting, fever, chills, diarrhea, swelling, confusion, vision changes, feeding difficulties, or any other concerning new or worsening symptoms occur.? 1. Keep chest incision site dry for 7 days. 2. No lifting more than 10 lbs with left arm for 1 month. 3. No driving for 2 weeks. 4. Wear left arm sling continuously for 24 hours, then wear at night when sleeping for 2 weeks. 5. Follow up in EP clinic in 7-10 days for incision site check.?? 6. No reaching behind the back with left arm or raising the left arm above shoulder level for 4 weeks.?? 7. Continue home meds??as before. Resume Eliquis on 06/16/24 night.? Orders? 06/16/24 12:04:00 EDT?? You Need to Schedule the Following Appointments Follow Up with??Kojo Fermin MD When:??Within Within one week Where: [address] [facility] [place] [address]- Discharge Medications SHANE SIM :1955 Visit Date:06/12/2024 Medications: Please continue your medications until treatment is completed or stopped by your provider. Medications not listed below should be discontinued. Discuss any questions related to medications with your provider. What How Much When Instructions Next Dose Changed Albuterol (Albuterol (Eqv- ProAir HFA) 90 mcg/ inhinhalation aerosol) 2 inhalation Inhalation Every 6 hours as needed for as needed for shortness of breath or wheezing As needed Changed Colchicine (colchicine 0.6 mg oral tablet) 1 tab(s) Oral Twice a day for prophylaxis of gout flares: not to exceed 1.2 mg per day ?? Tonight?? 06/16 Changed Cyanocobalamin (Vitamin B-12 1000 mcg oral tablet) 1 tab(s) Oral Daily Tomorrow am Changed Gabapentin (gabapentin 600 mg oral tablet) 1 tab(s) Oral 3 times a day Resume home schedule Changed apixaban (Eliquis 5 mg oral tablet) 1 tab(s) Oral Twice a day Start tonight per MD Unchanged Acetaminophen (acetaminophen 325 mg oral tablet) 650 Milligram Oral Every 6 hours greater than 101.5, Not to exceed 4 GM of Tylenol per 24 hour period ?? As needed Unchanged Allopurinol (allopurinol 100 mg oral tablet) 2 tab(s) Oral Daily Resume home schedule Unchanged amiODARONE (amiodarone 200 mg oral tablet) 1 tab(s) Oral Daily Resume home schedule Unchanged Amlodipine (amLODIPine 10 mg oral tablet) 10 Milligram Oral Daily in the morning Tomorrow morning Unchanged Aspirin (aspirin 81 mg oral delayed release tablet) 1 tab(s) Oral Daily tomorrow morning Unchanged Atorvastatin (atorvastatin 40 mg oral tablet) 1 tab(s) Oral Daily pm ?? Tomorrow morning Unchanged Famotidine (famotidine 20 mg oral tablet) 40 Milligram Oral Daily at Bedtime Tonight at bedtime Unchanged Ferrous Sulfate (FeroSul 325 mg oral tablet) 1 tab(s) Oral Every other day Resume home schedule Unchanged fluticasone/ umeclidinium/ vilanterol (Trelegy Ellipta) 1 puff Inhalation Daily am ?? Tomorrow am Unchanged Magnesium Oxide (magnesium oxide 400 mg oral tablet) 1 tab(s) Oral Daily Tomorrow am Unchanged Multivitamin (multivitamin Lipotropic with Multivitamins oral tablet) 1 tab(s) Oral Daily Tomorrow am Unchanged Cypress-3 Polyunsaturated Fatty Acids (Cypress-3 oral capsule) 1 gram Oral Twice a day Resume home schedule ?? What How Much When Comments Stop Taking Nitroglycerin Stop Taking Pramipexole 0.5 Milligram Oral Daily pm ?? Prescription Given During Visit No new medications prescribed at time of discharge.?? Laboratory Results Below is a partial list of the most recent Laboratory test results done prior to this discharge. You may have had other tests and procedures not included in this list. Please discuss all test resultswith your provider. Est Creatinine Clearance - 89.94 mL/min (06/16/2024) Basic Metabolic Panel (06/14/2024) ???Sodium - 133 mmol/L???Potassium - 4.8 mmol/L???Chloride - 100 mmol/L???Bicarbonate Level - 20 mmol/L???Anion Gap - 13 mmol/L???Glucose Level - 121 mg/dL???BUN - 23 mg/dL???Creatinine-Blood - 1.40 mg/dL???Estimated GFR Creatinine - 54 ML/MIN/1.73 M2???Calcium - 8.8 mg/dL BUN (06/14/2024) ???BUN - 26 mg/dL CBC (06/16/2024) ???WBC - 8.2 k/mm3???RBC - 3.64 m/mm3???Hgb - 10.5 Gm/dL???Hct - 32.5 %???MCV - 89.3 femtoliters???MCH - 28.8 pg???MCHC - 32.3 Gm/dL???Platelet Count - 161 k/mm3???RDW-SD - 49.8 femtoliters???MPV - 10.4 femtoliters???Nucleated RBC (Automated) - 0.0 #/100 WBC'S???Abs. NRBC - 0.0 k/mm3 CBC w/ Differential (06/15/2024) ???WBC - 10.4 k/mm3???RBC - 3.50 m/mm3???Hgb - 10.0 Gm/dL???Hct - 31.5 %???MCV - 90.0 femtoliters???MCH - 28.6 pg???MCHC - 31.7 Gm/dL???Platelet Count - 148 k/mm3???RDW-SD - 51.6 femtoliters???MPV - 9.4 femtoliters???Nucleated RBC (Automated) - 0.0 #/100 WBC'S???Abs. NRBC - 0.0 k/mm3???Abs. Neut - 7.0 k/mm3???Abs. Lymph - 1.9 k/mm3???Abs. [place] - 1.3 k/mm3???Abs. Eo - 0.1 k/mm3???Abs. Baso - 0.0 k/mm3???Neut % - 67.0 %???Lymph % - 18.4 %???[place] % - 12.1 %???Eos % - 1.1 %???Baso % - 0.3 %???Imm Gran - 1.1 %???Abs. Imm Gran - 0.1 k/mm3 Comprehensive Metabolic Panel (06/16/2024) ???Sodium - 131 mmol/L???Potassium - 5.0 mmol/L???Chloride - 98 mmol/L???Bicarbonate Level - 20 mmol/L???Anion Gap - 13 mmol/L???Glucose Level - 136 mg/dL???BUN - 17 mg/dL???Creatinine-Blood - 0.84 mg/dL???Estimated GFR Creatinine - 94 ML/MIN/1.73 M2???Calcium - 9.6 mg/dL???Protein, Total - 6.7 Gm/d L???Albumin - 4.0 Gm/dL???AG Ratio - 1.5???Alkaline Phosphatase - 86 units/L???AST (SGOT) - 31 units/L???ALT (SGPT) - 23 units/L???Bilirubin, Total - 0.4 mg/dL Creatinine (06/14/2024) ???Creatinine-Blood - 1.34 mg/dL???Estimated GFR Creatinine - 57 ML/MIN/1.73 M2 H + H (06/15/2024) ???Hgb - 10.2 Gm/dL???Hct - 31.8 % HOLD LAVENDER TUBE (06/14/2024) ???Hold Lavender Top - SPECIMEN DISCARDED AFTER 24 HOURS. Ionized Calcium (06/16/2024) ???Calcium, Ionized pH Corrected - 1.24 mmol/L Magnesium Level (06/16/2024) ???Magnesium - 2.2 mg/dL Phosphorus Level (06/16/2024) ???Phosphorus - 3.9 mg/dL POC Hemochron ACT-LR (06/13/2024) ???POC ACT-LR - 254.0 seconds You will be contacted within 72 hours with your results. Allergies (NKA means No Known Allergies) NKA Problems Active Problems??(13) CAD in [place] artery?? Chronic gout?? COPD (chronic obstructive pulmonary disease)?? Failed back surgical syndrome?? GERD (gastroesophageal reflux disease)?? History of percutaneous coronary intervention?? Hypomagnesemia?? Lumbosacral radiculitis?? Moderate aortic stenosis?? Obese class I?? Paroxysmal atrial fibrillation?? Paroxysmal atrial flutter?? PVD (peripheral vascular disease) with claudication?? Education Materials Below is the list of Educational Leaflet Providered with your Discharge Instructions. [employer] Patient Education - Discharge Instructions for Pacemaker Implantation?? [employer] Patient Education - Living with a Pacemaker?? [employer] Patient Education - New Pacer Instructions?? Valuables and Belongings I fully understand and agree that [facility] accepts no responsibility for all my personal property including clothing, toilet articles, radios, jewelry, dentures, hearing aids, rings, money, or any other property that is in my possession or is brought to me after admission. I understand certain valuables may be placed in a hospital safe for a short period of time. I understand that the hospital is not liable for loss or damage due to accident, fire, or other natural occurrence while said property is in the safe. I accept full responsibility for any personal property that I keep with me, and will not hold the hospital responsible in case of loss or disappearance. I acknowledge that i have been encouraged to send valuables and belongings home. ?? Review of Valuable and Belonging List: With patient Date for Pt to Sign Valuables/Belongings: 06/13/24 17:23:00 ?? Other Discharge Information ? Pulmonary Rehab Status?? Pulmonary Rehab Discharge Status?? Respiratory Rate: 17 br/min ? Common Emergency Awareness Tips IS IT A STROKE? Act FAST and Check for these signs: FACE Does the face look uneven? ARM Does one arm drift down? SPEECH Does their speech sound strange? TIME Call at any sign of stroke ?? Heart Attack Signs Chest discomfort: Most heart attacks involve discomfort in the center of the chest and lasts more than a few minutes, or goes away and comes back. It can feel like uncomfortable pressure, squeezing, fullness or pain. Discomfort in upper body: Symptoms can include pain or discomfort in one or both arms, back, neck, jaw or stomach. Shortness of breath: With or without discomfort. Other signs: Breaking out in a cold sweat, nausea, or lightheaded. Remember, MINUTES DO MATTER. If you experience any of these heart attack warning signs, call to get immediate medical attention! ?? Smoking can increase your chances of developing chronic health problems and can cause harmful effects to other family members in your house. If you smoke, you are strongly encouraged to quit. Please call [facility] [employer] Link at [phone] or [phone]) or log in to [email or web address] for referrals to smoking cessation programs. ?? 940 Suicide & Crisis Lifeline is available 12/10 if you or someone you know needs to find a reason to keep living. By calling 075 you'll be connected to a skilled, trained counselor at a crisis center in your area. INPATIENT DISCHARGE INSTRUCTIONS SIGNATURE PAGE SHANE SIM Location:[facility] Registration Date and Time:06/12/2024 10:41 EDT Primary Care Physician: Kojo Fermin MD, Attending Physician: Alex CORADO, [facility], I SHANE SIM, have received the above patient education materials/instructions and have verbalized understanding. If ambulance or transport services are being used I further acknowledge being given a choice of service. ?? If you need to contact me, please call me at this number: . Patient/Assembly Lead Person Name: Patient/Assembly Lead Person Signature: Relationship to Patient: Witness Name/Signature: Date: * Nina CORADO, Any S: PERFORM Event Display: Patient Education Leaflets Authored Date: [id number] Discharge Instructions for Pacemaker Implantation ?? [address] Discharge Instructions for Pacemaker Implantation You have had a procedure to insert a pacemaker. Once inside your body, this small electronic devicehelps keep your heart from beating too slowly. It can help you feel better and have more energy. Asyou recover, follow all of the instructions you are given. This includes those below. Activity ??? Follow the instructions you are given about limiting your activity. ??? If you are fitted with an arm sling, keep your arm in the sling for as long as your health care provider tells youto. Most often, the sling will be removed the next day. But you may be told to sleep with it on fora period to prevent damage to the pacemaker while it's healing. ??? Don't raise your arm on the inci roopa side above shoulder level. Or stretch your arm behind your back for as long as directed by your provider. This gives the leads a chance to secure themselves inside your heart. ??? Don't drive until your provider says it's okay. Have someone drive you home after the procedure. ??? Ask your provider when you can expect to return to work. You may have limits until your provider says it's okay for unrestricted activity. This depends on the type of work you do. ??? You can still exercise. It's good for your body and your heart. Talk with your provider about an exercise plan and the types of exercise to limit the risk of damaging your pacemaker. ?? Other precautions ??? Follow your health care provider's directions carefully for wound care. If there is a dressing, ask whether you should remove it or keep it on until your next visit. Never put any creams, lotions, or products like peroxide on an incision unless your provider tells you to. Don't get the incision wet until your provider says it's okay. ??? Check your incision for signs of infection. These include redness, swelling, drainage, and warmth. Do this for 7 days, or as advised by your provider. ??? Before you have any treatment, tell all providers, including your dentist, that you have a pacemaker. ??? Carry your pacemaker ID card with you at all times. The card has informationabout your pacemaker. You can show this card if your pacemaker sets off a metal detector. Also showit so you don't need to be screened with a handheld security wand. ??? Be careful when using cell phones and other electronic devices. Keep them at least 6 inches away from your pacemaker. It's safest to hold all cell phones to the ear farthest from your pacemaker or use the speaker mode setting. Don???t carry your phone or electronic device in your chest pocket, over the pacemaker. Experts advise carrying your cell phone and other electronics in a pocket or bag below your waist. Most cell phones and electronic devices don't interfere with pacemakers. But some cell phones and electronic devices, such as smartwatches and headphones, use powerful magnets for wireless charging that may interfere with how your pacemaker works. The magnet used for charging or other magnet accessories can also interfere with how your pacemaker works. These devices should be kept at least 12 inches away from your pacemaker when wirelessly charging or stored. Follow any other instructions given to you by yourhealth care provider and from the maker of your pacemaker. ??? Stay away from strong magnets. An example is handheld security wands. Most pacemakers are now safe to use with MRI scanners. Ask your provider if you have such a pacemaker. ??? Stay away from strong electrical marroquin. Examples are thosemade by radio transmitting towers, ham radios, and heavy- duty electrical equipment. ??? Don't lean over the open lorenzana of a running car. A running engine creates an electrical field. Most household and yard appliances will not cause any problems. If you use any large power tools, such as an industrial personnel research scientist, talk with your provider. ??? Follow any other instructions from your provider aboutother devices and procedures to stay away from. ?? Follow-up care ??? See your gluer machine operator in the next 7 to 10 days. Call and make an appointment as soon as you get home. ??? Make regular follow-up appointments with your health care provider. They will check the pacemaker to make sure it's working correctly. ??? Plan on having periodic checkups with your provider to assess the battery life of your pacemaker. Depending on your device and how much your body uses the pacing functions of the pacemaker, you will need a new device generator implanted at some point. This is generally about every 10 years. ??? Modern pacemakers have a built-in antenna that can send information, such as trouble alerts, over the internet to your provider. Ask your provider if your pacemaker is capable of remote monitoring. ?? When to call your doctor Contact your health care provider right away if you have: ??? Dizziness. ??? Lack of energy. ??? Twitching chest muscles. ??? Rapid pulse or pounding heartbeat. ??? Shortness of breath. ??? Pain around your pacemaker. ??? A fever above 100.4?? F (38?? C) or higher, or as directed by your provider. ??? Other signs of infection, such as redness, swelling, drainage, or warmth at the incision site. ??? An incision that is not healing, or your incision separates or opens. ??? Hiccups that won't stop. ??? Redness, severe swelling, drainage, pain that gets worse, bleeding, or warmth at the incision site. ??? Your pacemaker generator feels loose or like it is wiggling in the pocket under the skin. ?? Call 911 Call 911 if you have: ??? Chest pain. ??? Trouble breathing. ??? Fainting. ?? Last Reviewed Date: 2024 00:00:00 ?? The [employer]. All rights reserved. This information is not intended as a substitute for professional medical care. Always follow your healthcare professional's instructions. ?? * Nina CORADO, Any Terrell: PERFORM Event Display: Patient Education Leaflets Authored Date: [id number] Living with a Pacemaker ?? 10131 Living with a Pacemaker After you have a pacemaker implanted, you can do almost everything you did before your surgery. Here are tips for living well with a pacemaker. Carry an ID card When you first get your pacemaker, you???ll be given an ID card to carry with you. This card has important information about the device. Show it to any doctor, dentist, or other healthcare provider you visit. Pacemakers may set off metal detectors. So you may need to show your card to security personnel, such as those at the airport security checkpoint. ?? What to watch for ??? Be careful when using cell phones and electronic devices. Keep them at least 6 inches away fromyour pacemaker. It's safest to hold all cell phones to the ear farthest from your pacemaker or use the speaker mode setting. Don???t carry your phone or electronic device in your chest pocket, over the pacemaker. Experts advise carrying your cell phone and other electronics in a pocket or bag belowyour waist. Most cell phones and electronic devices don't interfere with pacemakers. But some cell phones and electronic devices, such as smart watches, use powerful magnets for wireless charging that may interfere with the normal function of your pacemaker. The magnet used for charging or other magnet accessories can also interfere with the normal function of your pacemaker. These devices shouldbe stored away from your pacemaker. Follow any other instructions given to you by your healthcare provider or from the maker of your pacemaker. ??? Stay away from very strong magnets. These include handheld security wands, metal detectors, and anti-theft systems often found in the workplace, airport, or other high-security areas. Show your ID card when you go through security. They also include MRI machines. Many pacemaker devices are considered safe for having an MRI (MR-conditional devices). But safety precautions must still be used. Check with your pacemaker healthcare provider for clearance if you need an MRI. ??? Stay away from strong electrical marroquin. These??are made by radio transmitting towers and [employer] radios. They are also made by heavy-duty electrical equipment. A running enginemakes an electrical field. Don't lean over the open lorenzana of a running car and avoid working on alternators.??If you use any large power tools, such as an industrial personnel research scientist, talk to your healthcare provider.??Most household and yard appliances will not cause any problems. ??? Call your healthcare provider if you have any symptoms that your pacemaker isn't working correctly. These include dizziness or palpitations. If a signal interferes If your pacemaker is near one of the devices described above, it may interfere with the electrical signal and stop the pacemaker from working correctly. If you think you were exposed to a signal likethis, call your healthcare provider and explain what happened. Also call your healthcare provider if you sense any interference with your device. ?? What???s OK Below are some of the many things that are safe to use when you have a pacemaker: ??? Microwave ovens ??? Computers ??? Hair dryers ??? Household power tools ??? Radios, TVs, and CD players ??? Bluetooth headsets ??? Electric blankets and heating pads ??? Vacuum assistant paralegal ??? Riding in a car ?? Follow up Plan to have regular checkups with your healthcare provider to check the battery life of your pacemaker. Your provider can also make sure the pacemaker is working correctly. For many devices, device function and battery life can be checked with a remote monitor set up in your home. On average, thisshould happen every 6 months, or as advised by your healthcare provider. Battery life, lead wire condition, and various functions are checked by doing a device interrogation. During an interrogation, the device is connected to a device graphics programmer using a special wand placed on the skin over the pacemaker. The data is sent from the device to the graphics programmer and assessed. Most in-home device interrogation systems use wireless technology to connect the device to special equipment. The equipment records the data and sends the information to your healthcare provider. Depending on your device and how much your body uses the pacing functions of the pacemaker, you will need a new pacemaker generator (or battery) implanted at some point, usually about every 10 years. ?? Last Reviewed Date: 2022 00:00:00 ?? [id number] The [employer]. All rights reserved. This information is not intended as a substitute for professional medical care. Always follow your healthcare professional's instructions. ?? * Nina CORADO, Any Terrell: PERFORM Event Display: Patient Education Leaflets Authored Date: [id number] New Pacer Instructions ?? 726 Permanent Pacemaker Instructions Site Care ??? Do not remove the dressing or shower for 3 days. Once the dressing is removed, you may get the incision wet but do not scrub the area. Pat it dry. Do not apply lotions or ointments to the site. The incision will be covered with either skin glue OR Steri-strips. Do not peel off either skin covering. Hand washing is a must and avoid touching the incision. ??? Steri-strips care-Do not pull, tug,or rub Steri-strips. They will fall off on their own within two weeks, otherwise they will be removed at the time of wound check. ?? Activity ??? If you received a new battery only:??for approximately 2 weeks do not lift, push, pull or carryobjects that weigh more than 10 pounds until the incision is healed. Avoid clothing that rubs against the incision. ??? If you received a new lead or wire: Limit the movement of your arm on the same side as the pacemaker, but do not stop moving it. o Avoid stretching that arm up over your head or li ft or carry things that weigh more than 10 pounds for 6 weeks. o Avoid golfing, swimming, tennis, bowling, shoveling snow, or mowing the lawn for 6 weeks. o You may sleep on the same side of the device once it is comfortable. o Do not drive for 5 days unless otherwise instructed by physician. o Avoid clothing that rubs against your incision.? Follow-up Instructions ??? If you do not already have a scheduled follow-up appointment, please call to make one. ??? Please review your manual provided with the device. ??? You will receive a temporary identification cardwhen you leave the hospital. A permanent card will be sent in the mail from the beam sealer in 6-8weeks. Please carry your ID card with you at all times. ??? Do not go through metal detectors, have your ID card ready you will need to show it. Please inform security staff, they are trained in proper procedures. ??? You may receive a home monitor with your device, please plug in and leave by yourbedside. Do not touch any buttons unless instructed otherwise. ??? Please tell all your healthcare providers (medical doctors, surgeons, dentists, chiropractors, etc.) you have a pacemaker. ??? Avoidpotential sources of strong electrical or magnetic marroquin. Please check with your gluer machine operator prior to scheduling an MRI for diagnostic purposes. Some implantable cardiac devices are not MRI conditional. If there is a question about any piece of equipment you may contact the device company at the toll free number on the back cover of the booklet or your ID card. ??? Most appliances (including microwaves) and tools in good repair can be used. Cell phones could affect your device. Hold the phoneon the opposite ear and do not carry in your breast pocket. ?? Call your doctor if you have any of the following: ??? Any side effects from medications- rash, cough, dizziness, leg cramps, nausea or blurred vision. ??? Your procedure site starts to bleed- lie down and put pressure on the incision site for 30 minutes: if bleeding does not stop, seek transportation to the nearest emergency department. Do not drive yourself. ??? Your incision looks swollen, redor has pus coming from it. This may mean that the site is infected. ??? You have a fever of 101 degrees or higher. ??? You are having a lot of pain at the procedure site, in your belly or back. ?? * Event Display: Provider Clarification Note Please click on pdf link to open report * Event Display: Hemodynamic Procedure Report Authored Date: * Event Display: Hemodynamic Procedure Report Authored Date: Admission evaluation note * Sandoval Santos MD: PERFORM Event Display: Admission Note Authored Date: [id number] Patient: ??SHANE SIM ? Age:??69 Years?Sex:??Male?:??1955?? Chief Complaint/Reason for Consultation Bradycardia History of Present Illness Shane Sim is a 69-year-old male with a history of paroxysmal A-fib/A-flutter on Eliquis, gout,COPD, GERD, chronic hypomagnesemia, obesity, CAD s/p PCI, moderate , and PVD who is being transferred to the PCU after ablation and temporary pacemaker placement. ?? He originally presented to [facility] for dofetilide loading for atrial flutter. He has a history of ablations (10/2023, 03/2024) with AF recurrence weeks after. EKG 04/2024 verified he was again in atrial flutter. He was loaded with dofetilide in preparation for a cardioversion 06/13 for symptomatic A-flutter, but on the day of the planned procedure a provider was not available, and after discussion with the team the patient opted for another ablation. Following the ablation the patient was noted to be in NSR in the 30s, so a temporary pacemaker was placed with a backup rate of 54 BPM. The plan is to evaluate overnight and if his [place] rhythm does not increase place a permanent pacemaker. ?? On arrival to the PCU patient was resting comfortably in bed. He denied chest pain, SOB, CHING, n/v, dizziness, and palpitations. He endorsed BLE weakness and a heaviness in his legs. He states despite the ablation he feels less sluggish and tired compared to beforehand. Review of Systems As stated in HPI. Objective Measurements?? Height: 183 cm (06/13/24) Weight: 104.1 kg (06/13/24) Dry Weight: 110.5 kg (06/12/24) Body Mass Index:??31.08 kg/m2??Critical (06/13/24) ? Vital Signs?? Temperature: 99.1 DegF (06/14/24 00:00:00) Temperature Route: Oral (06/14/24 00:00:00) Pulse Rate: 64 bpm (06/13/24 20:00:00) Heart Rate Monitored: 63 bpm (06/14/24 00:00:06) Respiratory Rate:??13 br/min??Low (06/14/24 00:19:00) Systolic Blood Pressure: 121 mm Hg (06/14/24 00:00:00) Diastolic Blood Pressure: 64 mm Hg (06/14/24 00:00:00) Blood pressure sites: Arm, left (06/14/24 00:00:00) Mean Arterial Pressure: 110 mm Hg (06/13/24 04:40:00) Pulse Pressure: 57 mm Hg (06/14/24 00:00:00) Oxygen Saturation: 94 % (06/14/24 00:00:06) Liters per Minute: 2 L/min (06/14/24 00:00:00) Mode of Delivery (Oxygen): Nasal cannula (06/14/24 00:00:00) Early Warning Score: 5 (06/14/24 00:49:33) ? Physical Exam Constitutional: Alert, in no distress. 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 Respiratory: Clear to auscultation. No wheezing, rales or rhonchi. Cardiovascular: Murmurs at S1 and S2, best heard at apex Gastrointestinal: Abdomen soft, non-distended. Tenderness and guarding upon palpation of umbilical region. Genitourinary: No costovertebral angle tenderness. Neurologic: Cranial nerves II-XII grossly intact. No focal neurological deficits.?? Skin: No rashes or lesions. Extensive brusing of forearms bilaterally. Musculoskeletal: No cyanosis or clubbing. No gross deformities. 3/5??strength??in BLE from hips. Psychiatric: Normal mood and affect. Assessment/Plan Assessment:??Shane Sim is a 69-year-old male with a history of paroxysmal A-fib/A-flutter on Eliquis, gout, COPD, GERD, chronic hypomagnesemia, obesity, CAD s/p PCI, moderate , and PVD who is being transferred to the PCU after ablation and temporary pacemaker placement. Pt is now in NSR intermittently paced in the 60s. Possible permanent pacemaker placement tomorrow. ?? Paroxysmal atrial fibrillation (I48.0) Paroxysmal atrial flutter (I48.92) S/P ablation of atrial fibrillation (Z98.890) Presence of temporary transvenous cardiac pacemaker (Z95.0) Pt has history of ablations (10/2023, 03/2024) with AF recurrence weeks after. EKG 04/2024 verified hewas again in atrial flutter. Was originally planned for cardioversion, got 2 doses dofetilide??06/12, but on the planned??day 06/13 it was cancelled. Pt was offered ablation instead which he accepted. After ablation pt was in NSR with rates in the 30s, temporary pacemaker was placed, base 54 BPM. Now intermittently paced with HR in the 60s. ?? -EP is following, appreciate recs -Pt to be evaluated tomorrow for possible permanent pacemaker -NPO after midnight -Hold home amlodipine, amiodarone -Continue home Eliquis ?? PVD (peripheral vascular disease) with claudication (I73.9):??Continue gabapentin Chronic gout (M1A.9XX0):??Continue colchicine, hold allopurinol GERD (gastroesophageal reflux disease) (K21.9):??Continue famotidine COPD (chronic obstructive pulmonary disease) (J44.9):??Continue PRN albuterol rescue, replace home Trelegy with Breo Ellipta Hypomagnesemia (E83.42):??Continue magnesium oxide, check Mg daily Lumbosacral radiculitis (M54.17):??Continue oxycodone 5mg p6hr??PRN ?? VTE Prophylaxis:??Apixaban Diet: NPO Code Status:??Full ? Sandoval Santos MD, PGY-2 Patient??discussed with the Single Ending Machine Operator??Dr. Lewis. ? Histories Allergies Allergies ?(Active and Proposed Allergies Only) NKA? (Severity: Unknown severity, Onset: Unknown) ? Past Medical History/Problem List Active Problems(13) CAD in [place] artery Chronic gout COPD (chronic obstructive pulmonary disease) Failed back surgical syndrome GERD (gastroesophageal reflux disease) History of percutaneous coronary intervention Hypomagnesemia Lumbosacral radiculitis Moderate aortic stenosis Obese class I Paroxysmal atrial fibrillation Paroxysmal atrial flutter PVD (peripheral vascular disease) with claudication ? Past Surgical History No surgery history documented. ? Social History Alcohol Details:??Use: Current. ??Frequency: 1-2 times per week. ??Type: Liquor. ??Alcohol use in household: Yes. ??Other: 3-4 vodka drinks per weekend day. Substance Abuse Details:??Use: Current. ??Type: Marijuana. ??Substance abuse in household: Yes. ??Other: Smoke marijuana everyday, last time was last night before bed (01/16/2019). Tobacco Details:??Use: Former smoker, quit more than 30 days ago. ??Other: Quit 14 years ago. ??Smokeless tobacco use: Never. Electronic Cigarette/Vaping Details:??Electronic Cigarette Use: Never. ? Family History Father??(): Cancer Brother: Cancer ? Medications Home Medications Acetaminophen (acetaminophen 325 mg oral tablet)??650 Milligram By Mouth Every 6 hours greater [id number], Not to exceed 4 GM of Tylenol per 24 hour period Albuterol (Albuterol (Eqv-ProAir HFA) 90 mcg/inh inhalation aerosol)??2 inhalation 180 Microgram Inhalation Every 6 hours as needed as needed for shortness of breath or wheezing Allopurinol (allopurinol 100 mg oral tablet)??200 Milligram 2 tablet By Mouth Daily amiODARONE (amiodarone 200 mg oral tablet)??200 Milligram 1 tablet By Mouth Daily Amlodipine (amLODIPine 10 mg oral tablet)??10 Milligram By Mouth Daily in AM apixaban (Eliquis 5 mg oral tablet)??1 tab(s) 5 Milligram By Mouth 2 times a day Aspirin (aspirin 81 mg oral delayed release tablet)??81 Milligram 1 tablet By Mouth Daily Atorvastatin (atorvastatin 40 mg oral tablet)??1 tab(s) 40 Milligram By Mouth Daily pm Colchicine (colchicine 0.6 mg oral tablet)??0.6 Milligram 1 tablet By Mouth 2 times a day for prophylaxis of gout flares: not to exceed 1.2 mg per day Cyanocobalamin (Vitamin B-12 1000 mcg oral tablet)??1,000 Microgram 1 tablet By Mouth Daily Famotidine (famotidine 20 mg oral tablet)??40 Milligram By Mouth Daily at bedtime Ferrous Sulfate (FeroSul 325 mg oral tablet)??1 tab(s) 325 Milligram By Mouth Every other day fluticasone/umeclidinium/vilanterol (Trelegy Ellipta)??1 puff Inhalation Daily am Gabapentin (gabapentin 600 mg oral tablet)??1 tab(s) 600 Milligram By Mouth 3 times a day Magnesium Oxide (magnesium oxide 400 mg oral tablet)??1 tab(s) 400 Milligram By Mouth Daily Multivitamin (multivitamin Lipotropic with Multivitamins oral tablet)??1 tab(s) By Mouth Daily Cypress-3 Polyunsaturated Fatty Acids (Cypress-3 oral capsule)??1 gram By Mouth 2 times a day ? Inpatient Medications Medications (14) Active SCHEDULED: (10) Apixaban 5 mg Tablet (apixaban) ??5 mg, By Mouth, 2 times a day Atorvastatin 40 mg Tablet (atorvastatin 40 mg oral tablet) ??40 mg, By Mouth, Daily Breo Ellipta 200 mcg / 25 mcg Inhaler (Breo Ellipta 200 mcg-25 mcg Inhaler) ??1 puffs, Inhalation, Daily Colchicine 0.6 mg Tablet (colchicine 0.6 mg oral tablet) ??0.6 mg, By Mouth, Daily Famotidine 20 mg Tablet (famotidine 20 mg oral tablet) ??40 mg, By Mouth, Daily at bedtime Gabapentin 300 mg Capsule (gabapentin 300 mg oral capsule) ??600 mg, By Mouth, 3 times a day Magnesium Oxide 400 mg Tablet (magnesium oxide 400 mg oral tablet) ??400 mg, By Mouth, 2 times a day NaCl 0.9% Flush 3ml (NaCL 0.9% Flush) ??3 mL, IV Push, Every 8 hours NaCl 0.9% Flush 3ml (NaCL 0.9% Flush) ??3 mL, IV Push, Every 8 hours Vitamin B-12 ??1000 mcg Tablet (cyanocobalamin 100 mcg oral tablet) ??1,000 mcg, By Mouth, Daily CONTINUOUS: (0) PRN: (4) Acetaminophen 325 mg Tablet (Acetaminophen Tablet) ??650 mg, By Mouth, Every 6 hours Albuterol 0.5% Inhalation Solution 0.5mL (Albuterol 0.5% inhalation maxwell) ??7.5 mg 1.5 mL, BAND Nebulizer, Every 6 hours NaCl 0.9% Flush 3ml (NaCL 0.9% Flush) ??3 mL, IV Push, Every 8 hours OxyCODONE 5 mg IR Tablet (oxyCODONE 5 mg oral tablet) ??5 mg, By Mouth, Every 6 hours ? Results Recent Labs CHEM GENERAL Sodium 137 mmol/L ()?? 06/13/2024 01:14 Potassium 4.1 mmol/L ()?? 06/13/2024 01:14 Chloride 101 mmol/L ()?? 06/13/2024 01:14 Bicarbonate Level 22 mmol/L ()?? 06/13/2024 01:14 Anion Gap 14 mmol/L ()?? 06/13/2024 01:14 Glucose Level 96 mg/dL ()?? 06/13/2024 01:14 BUN 14 mg/dL ()?? 06/13/2024 01:14 Creatinine-Blood 0.93 mg/dL ()?? 06/13/2024 01:14 Estimated GFR Creatinine 88 ML/MIN/1.73 M2 ()?? 06/13/2024 01:14 Calcium 9.8 mg/dL ()?? 06/13/2024 01:14 Magnesium 1.8 mg/dL ()?? 06/13/2024 01:14 ?? COAG POC ACT-LR 254.0 seconds ()?? 06/13/2024 14:55 ?? URINE OTHER Est Creatinine Clearance 81.24 mL/min ()?? 06/13/2024 02:09 ? * Jonathan Pak MD: PERFORM Event Display: Admission Note Authored Date: Patient: ??SHANE SIM ? Age:??69 Years?Sex:??Male?:??1955?? Chief Complaint easy fatigability, CORRALES History of Present Illness 69-year-old male, patient of Dr. Child, with medical history significant for paroxysmal atrial fibrillation, paroxysmal atrial flutter, CAD s/p PCI, COPD, and moderate aortic stenosis presents to [facility] for dofetilide loading for atrial flutter. He was noted to have atrial flutter on EKG on 04/2024 during clinic f/u. I discussed the blanking period with the patient. Since he is symptomatic from AFL we decided to proceed with antiarrhythmic therapy for now. ?? Prior hx: He states that after 2 to 3 weeks post ablation by Dr. Finch he began experiencing palpitations and shortness of breath. Repeat ambulatory monitoring confirmed AF recurrence. Antiarrhythmics vs. repeat catheter ablation options were discussed with the patient and he opted to proceed with redo AF ablation. He underwent redo atrial fibrillation ablation by me on 04/11/24. PVI + PWI was performed. CTI was checked and confirmed to be isolated from his previous ablation. ?? He underwent PVI and CTI ablation in 11/09/[address] Finch. No evidence of dormant conduction was noted with adenosine administration. 5-day ambulatory loop cardiac monitoring from 01/30 to 02/07/2024 -AF recurrence and short episodesof NSVT. ?? TTE (04/2024) - LVEF 60-65% with moderate LVH. Moderately enlarged right- sided chambers with normal RV systolic function. LA is severely enlarged. Moderate aortic stenosis. Review of Systems All systems reviewed and found to be negative except as mentioned above in the HPI. Physical Exam Vitals & Measurements T:??97.9?F?? HR:??82??(Peripheral)?? RR:??18?? BP:??134/73?? WT:??110.5??kg?? General: no acute distress Head: atraumatic Eyes: anicteric Lungs: CTAB Heart: RRR, no murmur Abd: soft, non-tender Skin: cool, dry Neuro: alert and oriented Psych: stable Assessment/Plan 1. Atrial fibrillation 2. Atrial flutter 3. COPD 4. CAD s/p PCI 5. Moderate aortic stenosis 6. Chronic gout ? EKG today shows atrial flutter. ??Will proceed with dofetilide loading??followed by DC cardioversion??tomorrow. Will obtain EKG 2 hours post each dofetilide dose. Will replete his Mag. ? Jonathan Pak MD Cardiac Electrophysiology [facility] ?? Problem List/Past Medical History Ongoing Failed back surgical syndrome Lumbosacral radiculitis Obese class I Medications Inpatient acetaminophen 325 mg oral tablet, 650 mg, By Mouth, Every 6 hours Albuterol 0.5% inhalation maxwell, 7.5 mg= 1.5 mL, BAND Nebulizer, Every 6 hours, PRN amLODIPine 10 mg oral tablet, 10 mg, By Mouth, Daily in AM apixaban, 5 mg, By Mouth, 2 times a day atorvastatin 40 mg oral tablet, 40 mg, By Mouth, Daily colchicine 0.6 mg oral tablet, 0.6 mg, By Mouth, Daily cyanocobalamin 100 mcg oral tablet, 1000 mcg, By Mouth, Daily dofetilide 500 mcg oral capsule, 500 mcg, By Mouth, 2 times a day famotidine 20 mg oral tablet, 40 mg, By Mouth, Daily at bedtime gabapentin 300 mg oral capsule, 600 mg, By Mouth, 3 times a day NaCL 0.9% Flush, 3 mL, IV Push, Every 8 hours NaCL 0.9% Flush, 3 mL, IV Push, Every 8 hours, PRN Home acetaminophen 325 mg oral tablet, 650 mg, By Mouth, Every 6 hours Albuterol (Eqv-ProAir HFA) 90 mcg/inh inhalation aerosol, 180 mcg= 2 inhalation, Inhalation, Every 6 hours, PRN allopurinol 100 mg oral tablet, 200 mg= 2 tablet, By Mouth, Daily amiodarone 200 mg oral tablet, 200 mg= 1 tablet, By Mouth, Daily amLODIPine 10 mg oral tablet, 10 mg, By Mouth, Daily in AM aspirin 81 mg oral delayed release tablet, 81 mg= 1 tablet, By Mouth, Daily atorvastatin 40 mg oral tablet, 40 mg= 1 tablet, By Mouth, Daily colchicine 0.6 mg oral tablet, 0.6 mg= 1 tablet, By Mouth, 2 times a day Eliquis 5 mg oral tablet, 5 mg= 1 tablet, By Mouth, 2 times a day famotidine 20 mg oral tablet, 40 mg, By Mouth, Daily at bedtime FeroSul 325 mg oral tablet, 325 mg= 1 tablet, By Mouth, Every other day gabapentin 600 mg oral tablet, 600 mg= 1 tablet, By Mouth, 3 times a day magnesium oxide 400 mg oral tablet, 400 mg= 1 tablet, By Mouth, Daily multivitamin Lipotropic with Multivitamins oral tablet, 1 tablet, By Mouth, Daily Nitroglycerin Cypress-3 oral capsule, 1 Gm, By Mouth, 2 times a day Pramipexole, 0.5 mg, By Mouth, Daily Trelegy Ellipta, 1 puff, Inhalation, Daily Vitamin B-12 1000 mcg oral tablet, 1000 mcg= 1 tablet, By Mouth, Daily Allergies NKA Social History Alcohol Use: Current. Frequency: Daily. Type: Liquor. Alcohol use in household: Yes. Other: 2-4 vodka drinks every day. Substance Abuse Use: Current. Type: Marijuana. Substance abuse in household: Yes. Other: Smoke marijuana everyday, last time was last night before bed (01/16/2019. Tobacco Use: Former smoker, quit more than 30 days ago. Other: Quit 14 years ago. Family History Cancer: Father and Brother. Immunizations Vaccine Date Status influenza virus vaccine, inactivated - Not Given Comments : Patient Refuses EKG study * Event Display: ECG 12-Lead Authored Date: [id number] Please click on pdf link to open report * Event Display: ECG 12-Lead Authored Date: [id number] Ventricular Rate: 71 BPM Atrial Rate: 71 BPM P-R Interval: 166 ms QRS Duration: 154 ms Q-T Interval: 468 ms QTC Calculation(Bazett): 508 ms P [place]: 95 degrees R [place]: -71 degrees T [place]: 106 degrees Atrial-sensed ventricular-paced rhythm Abnormal ECG When compared with ECG of 15-Jun-2024 08:40, Vent. rate has increased by 5 bpm Confirmed by Robert Loo ([id number]) on 06/16/2024 9:14:19 AM Beauty: Robert Loo * Event Display: ECG 12-Lead Authored Date: [id number] Please click on pdf link to open report * Event Display: ECG 12-Lead Authored Date: [id number] Ventricular Rate: 52 BPM Atrial Rate: 52 BPM P-R Interval: 592 ms QRS Duration: 80 ms Q-T Interval: 450 ms QTC Calculation(Bazett): 418 ms P [place]: 79 degrees R [place]: 20 degrees T [place]: 63 degrees Sinus bradycardia with marked sinus arrhythmia with 1st degree A-V block Inferior infarct (cited on or before 21-Dec-2012) Cannot rule out Anterior infarct , age undetermined Abnormal ECG When compared with ECG of 14-Jun-2024 14:44, No significant change Confirmed by Robert Loo ([id number]) on 06/16/2024 7:37:19 AM Beauty: Robert Loo * Event Display: ECG 12-Lead Authored Date: [id number] Please click on pdf link to open report * Event Display: ECG 12-Lead Authored Date: [id number] Ventricular Rate: 52 BPM Atrial Rate: 98 BPM QRS Duration: 84 ms Q-T Interval: 422 ms QTC Calculation(Bazett): 392 ms P [place]: 85 degrees R [place]: 0 degrees T [place]: -12 degrees Normal sinus rhythm First degree A-V block Inferior infarct (cited on or before 21-Dec-2012) Poor R-wave progression ; consider anterior infarct, lead placement, or normal variant Abnormal ECG When compared with ECG of 14-Jun-2024 09:20, Confirmed by SUZIE SHARMA MD ([id number]) on 06/14/2024 7:14:35 PM Beauty: SUZIE SHARMA MD Cardiology * Event Display: Cardiac Rhythm Strips Authored Date: [id number] * Event Display: Cardiac Rhythm Strips Authored Date: * Event Display: Cardiac Rhythm Strips Authored Date: Hospital Progress note * Pasha CORADO, Jonathan: PERFORM Event Display: Progress Note Hospital Authored Date: [id number] Patient: ??CHIQUIS SHANE ? Age:??69 Years?Sex:??Male?:??1955?? Subjective No acute events overnight. ?? Objective Vitals & Measurements T:??97.9?F?? TMIN:??97.8?F?? TMAX:??98.1?F?? HR:??76??(Peripheral)?? RR:??16?? BP:??131/82?? SpO2:??95%?? WT:??107.3??kg?? Physical Exam General: no acute distress Head: atraumatic Eyes: anicteric Lungs: CTAB Heart: RRR, no murmur Abd: soft, non-tender Skin: cool, dry. Pacemaker pocket site without hematoma or bleeding. Neuro: alert and oriented Psych: stable Assessment/Plan 1. Atrial flutter 2. Atrial fibrillation 3. High grade AV block 4. COPD 5. Moderate aortic stenosis 6. CAD s/p PCI ? CXRs and device interrogation this am within normal limits. Will remove pressure dressing prior to discharge. Successful DC PPM (RA + LBAP) implantation yesterday. Will arrange f/u in EP clinic. ? Jonathan Pak MD Cardiac Electrophysiology [facility] ?? Medications Inpatient Acetaminophen IVPB, 1000 mg= 100 mL, IVPB, Once, PRN Acetaminophen Tablet, 650 mg, By Mouth, Every 6 hours, PRN Acetaminophen Tablet, 650 mg, By Mouth, Every 6 hours, PRN Albuterol 0.5% inhalation maxwell, 7.5 mg= 1.5 mL, BAND Nebulizer, Every 6 hours, PRN amLODIPine 10 mg oral tablet, 10 mg, By Mouth, Daily atorvastatin 40 mg oral tablet, 40 mg, By Mouth, Daily Breo Ellipta 200 mcg-25 mcg Inhaler, 1 puffs, Inhalation, Daily Chloraseptic Lozenge *, 1 lozenge, By Mouth, Every 2 hours, PRN colchicine 0.6 mg oral tablet, 0.6 mg, By Mouth, Daily cyanocobalamin 100 mcg oral tablet, 1000 mcg, By Mouth, Daily DiphenhydrAMINE Inj (PACU ONLY), 12.5 mg= 0.25 mL, IV Push, Once, PRN famotidine 20 mg oral tablet, 40 mg, By Mouth, Daily at bedtime Fentanyl Inj (PACU ONLY), 25 mcg= 0.5 mL, IV Push Slowly, Every 5 minutes, PRN Fentanyl Inj (PACU ONLY), 50 mcg= 1 mL, IV Push Slowly, Every 5 minutes, PRN magnesium oxide 400 mg oral tablet, 400 mg, By Mouth, 2 times a day NaCL 0.9% Flush, 3 mL, IV Push, Every 8 hours NaCL 0.9% Flush, 3 mL, IV Push, Every 8 hours, PRN NaCL 0.9% Flush, 3 mL, IV Push, Every 8 hours nalOXONE Inj, 0.04 mg= 0.1 mL, IV Push, Every 5 minutes, PRN Ondansetron Inj (PACU ONLY), 4 mg, IV Push, Once, PRN oxyCODONE 5 mg oral tablet, 5 mg, By Mouth, Every 6 hours, PRN Oxycodone 5mg Oral Tablet (PACU ONLY), 2.5 mg, By Mouth, Once, PRN Oxycodone 5mg Oral Tablet (PACU ONLY), 5 mg, By Mouth, Once, PRN Spiriva Respimat Inhaler, 2 puffs, Inhalation, Daily Home acetaminophen 325 mg oral tablet, 650 mg, By Mouth, Every 6 hours Albuterol (Eqv-ProAir HFA) 90 mcg/inh inhalation aerosol, 180 mcg= 2 inhalation, Inhalation, Every 6 hours, PRN allopurinol 100 mg oral tablet, 200 mg= 2 tablet, By Mouth, Daily amiodarone 200 mg oral tablet, 200 mg= 1 tablet, By Mouth, Daily amLODIPine 10 mg oral tablet, 10 mg, By Mouth, Daily in AM aspirin 81 mg oral delayed release tablet, 81 mg= 1 tablet, By Mouth, Daily atorvastatin 40 mg oral tablet, 40 mg= 1 tablet, By Mouth, Daily colchicine 0.6 mg oral tablet, 0.6 mg= 1 tablet, By Mouth, 2 times a day Eliquis 5 mg oral tablet, 5 mg= 1 tablet, By Mouth, 2 times a day famotidine 20 mg oral tablet, 40 mg, By Mouth, Daily at bedtime FeroSul 325 mg oral tablet, 325 mg= 1 tablet, By Mouth, Every other day gabapentin 600 mg oral tablet, 600 mg= 1 tablet, By Mouth, 3 times a day magnesium oxide 400 mg oral tablet, 400 mg= 1 tablet, By Mouth, Daily multivitamin Lipotropic with Multivitamins oral tablet, 1 tablet, By Mouth, Daily Cypress-3 oral capsule, 1 Gm, By Mouth, 2 times a day Trelegy Ellipta, 1 puff, Inhalation, Daily Vitamin B-12 1000 mcg oral tablet, 1000 mcg= 1 tablet, By Mouth, Daily * Lina Diamond RN: PERFORM, SIGN, VERIFY Event Display: Progress Note Hospital Authored Date: [id number] Patient: SHANE SIM Age: 69 years Sex: Male : 1955 Associated Diagnoses: None Author: Lina Diamond RN Findings Problem Related to Alteration in Cardiac Function (new) : Alteration in Cardiac Function/new 06/16/2024 9:00 EDT Alteration in Cardiac Status Related to Dysrhythmia Goals & Outcomes, Cardiac Status Pt will resume/maintain adequate hemodynamic status, Pt will resume/maintain adequate respiratory function, Pt will resume/maintain intact neuro function, Pt willmaintain adequate GI/ function appropriate for pt, Pt will maintain adequate nutrition status, Pt/caregiver will state understanding of diagnosis, Pt/caregiver will state strategies to reduce risk factors, Pt will convert to a stable rhythm, Heart rate control/rhythm is maintained Cardiac Interventions Implemented Assess/monitor cardiac status, Assess/monitor neuro status, Assess/monitor respiratory status, Evaluate pt for proarrhythmic effects of medications Goals/Interventions, Cardiac Yes Cardiac, Problem Start 06/12/2024 18:32 Reviewed Plan with, Cardiac Status Patient Patient Progression, Cardiac Status Patient progressing according to plan . Nursing Data Cardiac Data. : Cardiac Data. 06/16/2024 8:25 EDT Pacemaker Yes Cardiac Rhythm Paced Capillary Refill < 3 seconds hospital monitor Yes Cardiovascular WNL except . Narrative/Incidental Patient progressing as per plan of care. Alert and oriented x4. For full assessment see BiophysicalAssessment. Per tele vpaced with some a pacing and non pacing rhythm noted. Dr. Pak aware. Slingplaced to left arm as per Dr. Pak. Left upper chest with dressing in place. Dressing is clean, dry and intact. Up to chair today with minimal assist. Ambulated in halls with no stated difficulty. Bilateral groin dressing intact with no oozing noted after ambulation. Dr. Wood made aware. Call sainz within reach and safety maintained.. * Danna Linton RN: VERIFY, PERFORM, SIGN Event Display: Progress Note Hospital Authored Date: Patient: SHANE SIM Age: 69 years Sex: Male : 1955 Associated Diagnoses: None Author: Danna Linton RN Findings Narrative/Incidental A+Ox4, follows commands, speaks full sentences and COVARRUBIAS. L eye prosthetic. Reports chronic back pain. Medicated per MAY. Room air. Placed on 2L NC overnight. Lungs clear. +palpable pulses. No edema. Using urinal at bedside. L chest with pressure dressing at pacer site. 20cc air removed at 1930 and ad ditional 10cc removed at 2130 per orders. Site cdi. L groin dressing with dsd cdi. R groin dressingsaturated. Changed. Bedrest overnight. Bed in lowest locked position. Call sainz within reach. Pt rings appropriately. . . . Patient Care team information Care Team Personnel Name: Kojo Fermin MD Position: [facility] Outreach Member Role: PCP Address: [address] [place] [address] Internal Medicine [address] Telecom: Name: Maritza Box RN Position: S RN Member Role: Primary Care Nurse Name: Reshma Clarke RN Position: [facility] RN Member Role: Primary Care Nurse Name: Carl Banks RN Position: S RN Member Role: Primary Care Nurse Care Team Related Persons Name: CINTHYA PRABHAKAR Name: EREMA SIM Insurance Providers Guarantor name: SHNAE SIM Health Plan Information #: 2 Payer: MEDICARE A INPT 25 Member Number: [id number] Policy Number: NA Group Number: NA Health Plan Information #: 3 P[facility]: [facility] Member Number: [id number] Policy Number: NA Group Number: NA Health Plan Information #: 4 Payer: [facility] Member Number: [id number] Policy Number: SAL Group Number: SAL Health Plan Information #: 1 Payer: Member Number: [id number] Policy Number: SAL Group Number: [id number]
== END 2024-06-19 14:05 | disposition home or self-care (01) ==
LOC: HO.HPS 13:07
PROVIDERS: PCP Internal Medicine; Visit Provider Nurse Practitioner Family
DX: J44.9 Chronic obstructive pulmonary disease, unspecified (principal); G47.33 Obstructive sleep apnea (adult) (pediatric); Z87.891 Personal history of nicotine dependence
CPT/HCPCS: 99204

== ENCOUNTER → 2024-06-19 13:07 | Outpatient (BNVA) | payer MEDICARE, MEDICAID, SELFPAY | PROVIDERS: PCP Internal Medicine; Visit Provider Nurse Practitioner Family | DX: J44.9 Chronic obstructive pulmonary disease, unspecified (principal); I10 Essential (primary) hypertension; G47.33 Obstructive sleep apnea (adult) (pediatric); Z79.01 Long term (current) use of anticoagulants; Z87.891 Personal history of nicotine dependence | CPT/HCPCS: 99202 ==

== ENCOUNTER 2024-07-08 07:23 | Outpatient (REF) | payer MEDICARE, MEDICAID, SELFPAY ==
--- OUTSIDE RECORDS SUMMARY | 2024-07-08 07:27 | XMS_ITS | Clinical Summary ---
Author Organization [facility] Address [address] [place] [address] Phone Care Team Providers Care Block Sawyer Name Role Phone Kojo Fermin MD Primary [...] to pulmonary rehab as well as a assessment manager. Patient is a former smoker with a 61-buck-eaej history. He states during ambulation he has to take very frequent breaks due to feeling winded . He continues to have some discomfort along his surgical incisional sites however he states that it is manageable. While patient was in office reviewed his most recent chest CT scan which was performed at [facility] on July 31, 2021 and shows [...] Care Team Description 05/29/2024 Telephone Pulmonolgy - [place] [address] [facility] [address] [place] [address] Canelo Valles MD documentation request from Last 3 Months Immunizations Name Administration Dates Next Due Tdap Tetanus diptheria acell ular pertussis (Boostrix; Adacel) 7yo and older 04/18/2008 Surgical History Surgery Date Site/Laterality Comments OTHER SURGICAL HISTORY PROCEDURE: HISTORICAL SUBTOTAL THYROIDECTOMY; COMMENT: Benign thyroid nodule COLONOSCOPY 06/05/08 PROCEDURE: ME COLONOSCOPY STOMA DX INCLUDING COLLJ SPEC SPX; COMMENT: Up to cecum, ascending polyp removed:Adenomatous, Hepatic flexure polyp removed:TA, Sigmoid polyp removed:Hyperplastic. NOT removed 1 polyp at asceding and 2 polyps at transverse OTHER SURGICAL HISTORY PROCEDURE: ME RADIAL KERATOTOMY; COMMENT: left eye Medical History [...] Influencers of Health Screening 03/01/2022 COVID-19 Vaccine ( - 2023-2 5 season) 2023 Hypertension/CHF/CAD Annual BMP Blood Test 05/07/2024 05/07/2023 Influenza Vaccine (Season Ended) 2024 Cholesterol Screening (Lipid Panel) 01/15/2028 01/14/2023 RSV Immunization Adult Patie nts (1 - 1-dose 75+ series) 2029 Abdominal [...] age to complete this topic Meningococcal B Vaccine Aged Out No l onger eligible based on patient's age to complete [...] * Polysomnography (06/16/2024 11:24 AM EDT) Result [facility] Provider SLEEP CENTER ORDERABLES F inal Result * Annual BMP Blood Test (05/07/2023) Pathologist formerly [facility] Annual BMP Blood Test abstracted Result [facility] Provider HEALTH MAINTENANCE Final Result * Lipid panel (01/14/2023) Pathologist [facility] LDL/HDL Ratio 0 0 - 0 Triglycerides 0 0 - 0 mg/dL Cholesterol 0 0 - 0 mg/dL HDL 0 0 - 0 mg/dL LDL Cholesterol 0 0 - 0 mg/dL Blood Venous blood specimen / Unknown Result [facility] Provider LAB BLOOD ORDERABLES Terese l Result * Abdominal Aortic Aneurysm Screen (08/02/2008) Pathologist formerly [facility] Abdominal Aortic Aneurysm (AAA) Screening abstracted Anatomical Region Laterality Modality Other [facility] Provider HEALTH MAINTENANCE Final Result from Last 3 Months or Most Recently Relevant to Health Maintenance Insurance [place] Advance Directives Documents on File Type Date Recorded Patient Doctor Of Podiatry Expl anation Health Care Decision (hx) 06/20/2021 [...] (hx) 06/18/2021 AD HURTADO DIRECTIVE Care Teams Block Sawyer Relationship Specialty Start Date End Date Kojo Fermin MD [address] [place] [id number] PCP - General Internal Medicine 03/27/21
[2024-07-08 07:40] LABS: MANUAL DIFF FLAG NO
[2024-07-08 08:20] LABS: Basophils Absolute Auto 0.1 X10*3/uL (0.0-0.2); Basophils Percent Auto 0.9 % (0-2); Eosinophils Absolute Auto 0.2 X10*3/uL (0.0-0.4); Eosinophils Percent Auto 2.4 % (0-4); Hematocrit 38.8 % (42.0-52.0); Hemoglobin 12.9 g/dl (14.0-18.0); Imm Gran Abs Auto 0.04 X10*3/uL (0.00-0.03); Imm Gran Pct Auto 0.6 % (0.0-0.4); Lymphocytes Absolute Auto 1.9 X10*3/uL (1.2-4.9); Lymphocytes Percent Auto 26.7 % (20-40); Mean Corpuscular HGB Conc 33.2 g/dl (31.0-36.0); Mean Corpuscular Hemoglobin 29.1 pg (27.0-33.0); Mean Corpuscular Volume 87.4 fL (80.0-98.0); Mean Platelet Volume 9.6 fL (9.4-12.4); Monocytes Percent Auto 13.8 % (2-11); Neutrophils Absolute Auto 3.9 x10*3/uL (2.0-8.3); Neutrophils Percent Auto 55.6 % (45-73); Platelet Count 161 X10*3/uL (160-400); Red Blood Count 4.44 X10*6/uL (4.60-5.80); Red Cell Distribution Width 15.6 % (11.0-16.0)
[2024-07-08 08:30] LABS: Estimated Average Glucose 111 mg/dL; Hemoglobin A1C 126.3546 umol/L; Hemoglobin A1c % 5.5 % (<6.0); Total Hemoglobin (HGBA1C) 3424.0885 umol/L
[2024-07-08 08:56] LABS: Alanine Aminotransferase 35 U/L (0-40); Albumin Level 4.4 g/dL (3.5-5.0); Alkaline Phosphatase 95 U/L (39-117); Aspartate Amino Transferase 29 U/L (5-37); Bilirubin Total 0.6 mg/dL (0.0-1.0); Blood Urea Nitrogen 15 mg/dL (9-16); Calcium 9.7 mg/dL (8.4-10.2); Cholesterol 159 mg/dL (<200); Estimated Glomerular Filt Rate > 60; Glucose Random 119 mg/dL (60-115); HDL Cholesterol 57 mg/dL (>40); Iron 49 mcg/dL (45-160); LDL Cholesterol Calculated 70 mg/dL (<100); Percent Iron Saturation 15 % (15-50); Total Iron Binding Capacity 334 mcg/dL (228-428); Total Protein 7.1 g/dL (6.5-8.0); Triglycerides 160 mg/dL (<150); Unsaturated Iron Binding 285 ug/dL
[2024-07-08 09:17] LABS: Vitamin B12 540 pg/mL (200-900)
[2024-07-08 09:21] LABS: Ferritin 76 ng/mL (20-250); TSH reflex Free T4 5.47 uIU/mL (0.32-4.0)
[2024-07-08 09:37] LABS: Anion Gap 14 (12-20); Carbon Dioxide 21 mmol/L (22-29); Chloride 107 mmol/L (96-108); Potassium 4.1 mmol/L (3.3-5.1); Sodium 138 mmol/L (135-145)
[2024-07-08 10:56] LABS: Free T4 (Free Thyroxine) 0.87 ng/dL (0.71-1.85)
== END 2024-07-08 07:24 | disposition home or self-care (01) ==
LOC: HO.LAB 07:23
PROVIDERS: PCP Internal Medicine; Visit Provider Internal Medicine
DX: D64.9 Anemia, unspecified (principal); I10 Essential (primary) hypertension; Z13.1 Encounter for screening for diabetes mellitus
CPT/HCPCS: 36415; 80053; 80061; 82607; 82728; 83036; 83540; 84439; 84443; 85025

== ENCOUNTER → 2024-07-16 23:59 | Outpatient (BNV) | payer MEDICARE, MEDICAID, SELFPAY ==
--- NOTE | 2024-07-18 12:39 | MHC.OFFVIS ---
Intake Visit Reasons: Remote device check- [employer] Allergies No Known Allergies [No Known Allergies*] Allergy (Verified 06/19/24 13:19) PFSH Medical History (Updated 06/21/24 @ 13:12 by Danilo Em MD) Atrial flutter CAD (coronary artery disease) Atrial fibrillation Junctional bradycardia COVID-19 Blindness of left eye History of eye prosthesis Thyroid disease GERD (gastroesophageal reflux disease) Numbness On beta patrick at home On anticoagulant therapy Murmur PVD (peripheral vascular disease) Myocardial infarction Alcohol dependence Post laminectomy syndrome Asthma Renal stones COPD (chronic obstructive pulmonary disease) Anemia Hepatitis C Hyperlipidemia HTN (hypertension) SVT (supraventricular tachycardia) Surgical History Hx of eye surgery History of esophagogastroduodenoscopy (EGD) H/O colonoscopy S/P lobectomy of lung (~05/2021) Stented coronary artery Hx of thyroidectomy History of back surgery Hx of cardiac cath Family History Father Cancer Mother CVD (cardiovascular disease) Social History (Updated 06/19/24 @ 13:20 by Judi Haro LPN) Household Members: None Housing: Apartment Are you a primary director of patient care to a significant other at home: No Do you presently have visiting nurse or other home services: No Alcohol intake: current Alcohol intake frequency: 0-2 drinks per day Alcohol type: hard liquor Patient Tobacco Use Status: Former Tobacco user Tobacco use type: Cigarette Cigarette Packs Per Day: 1 Cigarettes Per Day: 20.0 Years Smoked: 40/ Stopped at age 54 Second Hand Smoke Exposure: No Substance Use Type: Marijuana Advance Directives Date on File: 09/09/23 service: No Office Procedures Cardiac Device Check Cardiac Device Check Details: Remote pacemaker report generated 07/16/2024. Pacemaker function is adequate. Persistent atrial flutter noted 92.5% of the time [id number] Cardiac Device Interrogation, pacemaker Procedure code (CPT) selection complete Assessment & Plan Assessment & Plan (1) Cardiac pacemaker in situ: Code(s): Z95.0 - Presence of cardiac pacemaker Category: Medical Plan: See above Coding Level of Care Code Procedure Only Diagnoses Cardiac pacemaker in situ Z95.0 CPT Codes Cardiac Device Check - Cardiac Device 12: [id number] Cardiac Device Interrogation, pacemaker ([id number])
== END ==
PROVIDERS: PCP Internal Medicine; Visit Provider Internal Medicine Cardiovascular Disease
DX: I48.92 Unspecified atrial flutter (principal); Z95.0 Presence of cardiac pacemaker
CPT/HCPCS: 93294

== ENCOUNTER 2024-07-17 13:26 | Outpatient (AMB) | payer MEDICARE, MEDICAID, SELFPAY ==
[2024-07-17 14:02] VITALS: BP 116/72; PULSE 90; BMI 32.3
--- NOTE | 2024-07-17 14:02 | A.OFFVIS_ITS ---
Vital Signs 07/17/24 14:02 Height 6 ft Weight 238 lb 1.588 oz BMI 32.3 BP 116/72 Blood Pressure Location Lt brachial Position Sitting Pulse 90 Intake Visit Reasons: 2m follow up Intake Note: 2 month follow-up with ekg and medtronic check c/o fatigue Allergies No Known Allergies [No Known Allergies*] Allergy (Verified 06/19/24 13:19) Medication List - Last Reconciled 07/20/24 by Danilo Em MD acetaminophen 650 mg (2 x 325 mg) PO Q6H PRN albuterol sulfate 90 mcg/actuation 2 puffs inhalation QID PRN allopurinol 100 mg PO DAILY amlodipine 10 mg PO DAILY apixaban (Eliquis) 5 mg PO BID aspirin 81 mg PO DAILY atorvastatin 40 mg PO DAILY cholecalciferol (vitamin D3) (Vitamin D3) 25 mcg PO DAILY colchicine 0.6 mg PO BID PRN cyanocobalamin (vitamin B-12) (Vitamin B-12) 500 mcg PO DAILY famotidine 40 mg PO BID [id number]-fvfkoivfi-kqlzjbsk 200-62.5-25 mcg (Trelegy Ellipta) 1 ea inhalation DAILY gabapentin 600 mg PO BID ipratropium-albuterol 0.5 mg-3 mg(2.5 mg base)/3 mL 3 mL inhalation TID PRN magnesium oxide 400 mg PO BIDWM omega-3 acid ethyl esters 2 caps PO BID oxycodone 5 mg PO Q6H PRN HPI Comments Details: Vineet comes for follow-up of his pacemaker. Also follow up as atrial arrhythmias. Underwent an ablation and had recurrent atrial arrhythmias mostly atrial flutter is noted by pacer telemetry. He continues to have symptoms exertional fatigue and shortness of breath and is quite unhappy with the overall management. Currently not taking amiodarone. He said this was discontinued. He is planned for another ablation it appears to be AV spencer ablation for his persistent atrial arrhythmias. He denies any chest pain. Denies any lightheadedness, orthopnea, leg edema, PND. [facility] Medical History (Updated 07/20/24 @ 12:37 by Danilo Em MD) Atrial flutter CAD (coronary artery disease) Atrial fibrillation Junctional bradycardia COVID-19 Blindness of left eye History of eye prosthesis Thyroid disease GERD (gastroesophageal reflux disease) Numbness On beta patrick at home On anticoagulant therapy Murmur PVD (peripheral vascular disease) Myocardial infarction Alcohol dependence Post laminectomy syndrome Asthma Renal stones COPD (chronic obstructive pulmonary disease) Anemia Hepatitis C Hyperlipidemia HTN (hypertension) SVT (supraventricular tachycardia) Surgical History Hx of eye surgery History of esophagogastroduodenoscopy (EGD) H/O colonoscopy S/P lobectomy of lung (~05/2021) Stented coronary artery Hx of thyroidectomy History of back surgery Hx of cardiac cath Family History Father Cancer Mother CVD (cardiovascular disease) Social History Household Members: None Housing: Apartment Are you a primary skin care technician to a significant other at home: No Do you presently have visiting nurse or other home services: No Alcohol intake: current Alcohol intake frequency: 0-2 drinks per day Alcohol type: hard liquor Patient Tobacco Use Status: Former Tobacco user Tobacco use type: Cigarette Cigarette Packs Per Day: 1 Cigarettes Per Day: 20.0 Years Smoked: 40/ Stopped at age 54 Second Hand Smoke Exposure: No Substance Use Type: Marijuana Advance Directives Date on File: 09/09/23 service: No Review of Systems Const Denies chills, Denies fatigue, Denies fever(s), Denies frequent falls, Denies weakness, Denies weight gain and Denies weight loss ENT Denies dizziness Card Denies chest pain, Denies leg edema, Denies lightheadedness, Denies palpitations, Denies dyspnea, Denies dyspnea on exertion, Denies orthopnea and Denies other (loss of consciousness) Resp Denies cough, Denies dyspnea and Denies dyspnea on exertion GI Denies hematochezia and Denies change in stool character Musc Denies abnormal gait, Denies muscle weakness, Denies numbness, Denies radiating pain into limb and Denies tingling Neuro Denies abnormal gait, Denies dizziness, Denies frequent falls, Denies numbness, Denies tingling and Denies weakness Endo Denies fatigue and Denies palpitations Physical Exam Vital Signs: Last Vital Signs Pulse 90 07/17/24 14:02 BP 116/72 07/17/24 14:02 BMI result Body Mass Index 32.3 Const General: cooperative, comfortable, no acute distress, alert and awake Nutritional Appearance: overweight Orientation/consciousness: patient oriented x3 Limitations: no limitations Neck Neck: Yes trachea midline and Yes no JVD Resp Effort & Inspection: normal respiratory effort Auscultation: clear to auscultation bilaterally Cardio Jugular venous distension: no JVD Palpation: normal PMI Rhythm: abnormal rhythm irregularly irregular Heart sounds: S1 normal heart sound present, S2 normal heart sound present, no click, no gallops, Murmur heart sound present systolic mid and no rubs GI Auscultation: normal bowel sounds Skin General skin exam: ecchymosis Neuro General: patient oriented x3 and no focal motor deficits Extrem General: Yes no clubbing, cyanosis or edema Office Procedures Cardiac Device Check Cardiac Device Check Details: Dual-chamber Medtronic pacemaker was placed. Reprogrammed from DDDR to DDIR due to persistent atrial flutter. Persistent atrial flutter noted 92% of the time. Patient remains fairly active. Measured R-waves are adequate. Atrial ventricular pacing lead impedance is stable. Ventricular pacing thresholds adequate. Reprogrammed to enhance battery life. Battery life is excellent [id number] Cardiac Device Check, pacemaker dual lead Procedure code (CPT) selection complete EKG Details: EKG shows atrial flutter with variable conduction with inferior infarct with poor R-wave progression [id number], Complete Assessment & Plan Assessment & Plan (1) Cardiac pacemaker in situ: Code(s): Z95.0 - Presence of cardiac pacemaker Category: Medical Plan: Cardiac pacemaker in-situ for sick sinus syndrome. Patient's pacemaker is working well at this point time. Reprogrammed changes made. Will follow remotely every 3 months. (2) Atrial flutter: Code(s): I48.92 - Unspecified atrial flutter Category: Medical Plan: Patient was recurrent atrial arrhythmias with atrial flutter which is pers istent. He is quite symptomatic with loss of AV synchrony. He remains very short of breath and fatigue. I think he will benefit from trying to convert him back in his sinus rhythm. He is currently not taking amiodarone therapy. We discussed about possibility of loading him with amiodarone doing synchronized cardioversion. I then discussed the case with electrophysiology was planning to do AV spencer ablation as he already has a pacemaker placement. They think that this symptoms will improve with AV spencer ablation although this will not reestablish AV synchrony. This was discussed with the patient. He is more leading towards going for AV spencer ablation. (3) CAD (coronary artery disease): Code(s): I25.10 - Atherosclerotic heart disease of [place] coronary artery without angina pectoris Category: Medical Plan: CAD with prior RCA stenting. Currently not having any symptoms. Currently on full oral anticoagulation Xarelto. There was no indication for additional aspirin therapy at this point time. Continue high-intensity statin therapy with target goal LDL less than 70 mg/dL. Blood pressure is currently well optimized. Will follow up in the clinic in 6 months time, sooner p.r.n.. Thank you for allowing me to partake in his care Coding Level of Care Code Est Pt Level 4 (63694) Complex EM visit Add On G2211 Diagnoses Cardiac pacemaker in situ Z95.0 Atrial flutter I48.92 CAD (coronary artery disease) I25.10 CPT Codes Cardiac Device Check - Cardiac Device 2: [id number] Cardiac Device Check, pacemaker dual lead ([id number]) EKG - CPT: 28114-[id number], Complete ([id number])
--- OUTSIDE RECORDS SUMMARY | 2024-07-17 15:59 | XMS_ITS | Clinical Summary ---
Author Organization [facility] Address [address] [place] [address] Phone Care Team Providers Care Faculty I On Call Medical Assistant Name Role Phone Kojo Fermin MD Primary [...] to pulmonary rehab as well as a retail team leader. Patient is a former smoker with a 77-okdt-hcdr history. He states during ambulation he has to take very frequent breaks due to feeling winded . He continues to have some discomfort along his surgical incisional sites however he states that it is manageable. While patient was in office reviewed his most recent chest CT scan which was performed at [facility] on July 31, 2021 and shows [...] Care Team Description 05/29/2024 Telephone Pulmonolgy - [place] [address] [facility] [address] [place] [address] Canelo Valles MD documentation request from Last 3 Months Immunizations Name Administration Dates Next Due Tdap Tetanus diptheria acell ular pertussis (Boostrix; Adacel) 7yo and older 04/18/2008 Surgical History Surgery Date Site/Laterality Comments OTHER SURGICAL HISTORY PROCEDURE: HISTORICAL SUBTOTAL THYROIDECTOMY; COMMENT: Benign thyroid nodule COLONOSCOPY 06/05/08 PROCEDURE: [place] COLONOSCOPY STOMA DX INCLUDING COLLJ SPEC SPX; COMMENT: Up to cecum, ascending polyp removed:Adenomatous, Hepatic flexure polyp removed:TA, Sigmoid polyp removed:Hyperplastic. NOT removed 1 polyp at asceding and 2 polyps at transverse OTHER SURGICAL HISTORY PROCEDURE: AK RADIAL KERATOTOMY; COMMENT: left eye Medical History [...] * Polysomnography (06/16/2024 11:24 AM EDT) Result [facility] Provider SLEEP CENTER ORDERABLES F inal Result * Annual BMP Blood Test (05/07/2023) Pathologist [facility] Annual BMP Blood Test abstracted Result [facility] Provider HEALTH MAINTENANCE Final Result * Lipid panel (01/14/2023) Pathologist [facility] LDL/HDL Ratio 0 0 - 0 Triglycerides 0 0 - 0 mg/dL Cholesterol 0 0 - 0 mg/dL HDL 0 0 - 0 mg/dL LDL Cholesterol 0 0 - 0 mg/dL Blood Venous blood specimen / Unknown Result [facility] Provider LAB BLOOD ORDERABLES Terese l Result * Abdominal Aortic Aneurysm Screen (08/02/2008) Pathologist [facility] Abdominal Aortic Aneurysm (AAA) Screening abstracted Anatomical Region Laterality Modality Other [facility] Provider HEALTH MAINTENANCE Final Result from Last 3 Months or Most Recently Relevant to Health Maintenance Insurance [place] Advance Directives Documents on File Type Date Recorded Patient Transitional Studies Instructor Expl anation Health Care Decision (hx) 06/20/2021 [...] (hx) 06/18/2021 AD HURTADO DIRECTIVE Care Teams Faculty I On Call Medical Assistant Relationship Specialty Start Date End Date Kojo Fermin MD [address] [place] [id number] PCP - General Internal Medicine 03/27/21
== END 2024-07-17 14:10 | disposition home or self-care (01) ==
LOC: HO.HCS 13:27
PROVIDERS: PCP Internal Medicine; Visit Provider Internal Medicine Cardiovascular Disease
DX: I48.92 Unspecified atrial flutter (principal); Z95.0 Presence of cardiac pacemaker; I25.10 Atherosclerotic heart disease of native coronary artery without angina pectoris
CPT/HCPCS: 93010; 93280; 99214; G2211

== ENCOUNTER → 2024-07-17 13:26 | Outpatient (BNVA) | payer MEDICARE, MEDICAID, SELFPAY | PROVIDERS: PCP Internal Medicine; Visit Provider Internal Medicine Cardiovascular Disease | DX: Z45.018 Encounter for adjustment and management of other part of cardiac pacemaker (principal); I48.92 Unspecified atrial flutter; I25.10 Atherosclerotic heart disease of native coronary artery without angina pectoris; R94.31 Abnormal electrocardiogram [ECG] [EKG]; I44.30 Unspecified atrioventricular block | CPT/HCPCS: 93005; 93280; 99212 ==

== ENCOUNTER 2024-08-21 15:24 | Outpatient (AMB) | payer MEDICARE, MEDICAID, SELFPAY ==
--- NOTE | 2024-08-21 15:28 | MHC.OFFVIS ---
Vital Signs 08/21/24 15:29 Height 6 ft Weight 234 lb 12.677 oz BMI 31.8 BP 140/72 H Blood Pressure Location Lt brachial Position Sitting Pulse 89 Pulse Source Pulse Oximeter Pulse Oximetry (%) 97 Oxygen Delivery Method Room Air Intake Visit Reasons: COPD Allergies No Known Allergies [No Known Allergies*] Allergy (Verified 08/21/24 15:32) Medication List - Last Reconciled 08/21/24 by Mis Stephens NP acetaminophen 650 mg (2 x 325 mg) PO Q6H PRN albuterol sulfate 90 mcg/actuation 2 puffs inhalation QID PRN allopurinol 100 mg PO DAILY amlodipine 10 mg PO DAILY apixaban (Eliquis) 5 mg PO BID aspirin 81 mg PO DAILY atorvastatin 40 mg PO DAILY cholecalciferol (vitamin D3) (Vitamin D3) 25 mcg PO DAILY colchicine 0.6 mg PO BID PRN cyanocobalamin (vitamin B-12) (Vitamin B-12) 500 mcg PO DAILY famotidine 40 mg PO BID ceoahlludep-zgrrollld-jrvvvngs 200-62.5-25 mcg (Trelegy Ellipta) 1 ea inhalation DAILY furosemide (Lasix) 20 mg PO DAILY gabapentin 600 mg PO BID ipratropium-albuterol 0.5 mg-3 mg(2.5 mg base)/3 mL 3 mL inhalation TID PRN magnesium oxide 400 mg PO BIDWM omega-3 acid ethyl esters 2 caps PO BID oxycodone 5 mg PO Q6H PRN HPI HPI COPD: Details: Shane is pleasant 69 year old, former 40 pack year smoker, quit 15 years ago with underlying COPD, HTN, atrial fibrillation s/p ablation on Eliquis, peripheral vascular disease, SVT, hyperlipidemia,CAD s/p RCA stent, h/o TN, severe XAVIER could not tolerate CPAP, s/p resection of RUL pulmonary nodule 06/2021, negative for malignancy with recurrent pleural effusions s/p thoracentesis. He reports moderate with Trelegy using DuoNeb 2-3 times per day. PFT 2022 revealed mild COPD. He continues with dyspnea on exertion, intermittent wheezing and occasional productive cough. Since the last visit he was evaluated at [facility] for sudden onset abdominal pain ultimately underwent cholecystecomy discharged and the next day 08/11 subsequently readmitted secondary to CHF exacerbation and PNA. Upon arrival patient hypoxic, proBNP 3000 placed on BiPAP(was desaturating to high 80s on room air and low 80s on nasal cannula). CTA negative for PE however noted consolidation in the dependent left lower lobe as well as nodular opacity seen in the right lower lobe which may be infectious or inflammatory. Recommendations for follow-up chest CT in 6-8 weeks to exclude underlying neoplasm. He was treated with zosyn switched to ceftriaxone and discharged on 08/15 with augmentin as well as started on lasix 20 mg QD. He has upcoming appointment with Dr. Em for further evaluation. [facility] Medical History (Updated 08/22/24 @ 10:28 by Mis Stephens NP) Atrial flutter CAD (coronary artery disease) Atrial fibrillation Junctional bradycardia COVID-19 Blindness of left eye History of eye prosthesis Thyroid disease GERD (gastroesophageal reflux disease) Numbness On beta patrick at home On anticoagulant therapy Murmur PVD (peripheral vascular disease) Myocardial infarction Alcohol dependence Post laminectomy syndrome Asthma Renal stones COPD (chronic obstructive pulmonary disease) Anemia Hepatitis C Hyperlipidemia HTN (hypertension) SVT (supraventricular tachycardia) Surgical History Hx of eye surgery History of esophagogastroduodenoscopy (EGD) H/O colonoscopy S/P lobectomy of lung (~05/2021) Stented coronary artery Hx of thyroidectomy History of back surgery Hx of cardiac cath Family History Father Cancer Mother CVD (cardiovascular disease) Social History Household Members: None Housing: Apartment Are you a primary nursing care partner to a significant other at home: No Do you presently have visiting nurse or other home services: No Alcohol intake: current Alcohol intake frequency: 0-2 drinks per day Alcohol type: hard liquor Patient Tobacco Use Status: Former Tobacco user Tobacco use type: Cigarette Cigarette Packs Per Day: 1 Cigarettes Per Day: 20.0 Years Smoked: 40/ Stopped at age 54 Second Hand Smoke Exposure: No Substance Use Type: Marijuana Advance Directives Date on File: 09/09/23 service: No Review of Systems Const Denies chills, Denies excessive sweating, Denies fever(s), Denies headache(s) and Denies night sweats Eyes Denies dry eyes, Denies irritation and Denies itchy eyes ENT Reports Normal hearing present, Denies headache(s), Denies nasal congestion, Denies nasal discharge, Denies post nasal drip and Denies sore throat Card Denies chest pain, Denies chest pain at rest, Denies chest pain with activity, Denies claudication, Reports dyspnea on exertion, Denies orthopnea and Denies paroxysmal nocturnal dyspnea Resp Denies chest congestion, Reports cough, Denies hemoptysis, Denies excessive phlegm production, Denies pain on inspiration, Denies pain with cough, Reports dyspnea on exertion, Denies stridor and Denies wheezing Musc Denies myalgias Neuro Reports Normal hearing present and Denies headache(s) Endo Denies excessive sweating Torin/Lymph Denies lymphadenopathy Aller/Immun Denies itchy eyes, Denies seasonal rhinorrhea and Denies wheezing Physical Exam Vital Signs: Last Vital Signs Pulse 89 08/21/24 15:29 BP 140/72 H 08/21/24 15:29 Pulse Ox 97 08/21/24 15:29 Oxygen Delivery Method Room Air 08/21/24 15:29 BMI result Body Mass Index 31.8 Const General: cooperative, healthy appearing, comfortable, no acute distress, well developed and alert Nutritional Appearance: obese Orientation/consciousness: patient oriented x3 Limitations: no limitations HEENT Head: Yes normal to inspection, Yes normocephalic and Yes atraumatic Ears: hearing grossly normal bilaterally and external ears normal Eyes Sclerae: sclerae normal Neck Neck: Yes normal visual inspection and Yes no lymphadenopathy Lymphatic: no lymphadenopathy noted Chest Chest palpation & inspection: normal inspection of the chest Resp Effort & Inspection: normal respiratory effort, able to speak in complete sentences, no audible wheezes, no cough, no stridor, not tachypneic, no tripod positioning and no use of accessory muscles Auscultation: clear to auscultation bilaterally Cardio Jugular venous distension: no JVD Rate: regular rate Rhythm: regular rhythm Skin Other: warm, dry General skin exam: no rashes or lesions noted Neuro General: patient oriented x3 Cranial nerves: Yes Normal hearing present Cognition (Neuro): normal cognition Gait exam (Neuro): Normal gait present Extrem General: Yes normal to inspection, Yes capillary refill normal, Yes no clubbing, cyanosis or edema and Yes no pedal edema Psych Appearance: grossly normal and well kempt Speech and movement: Normal speech and movement present and Clear speech present Affect: normal affect Attitude: cooperative Thought process: Normal thought process present Thought content: Normal thought content present Insight: Good insight present (Psych) Judgement: Good judgement present (Psych) Results Reviewed Results Reviewed: RESULT: CT Angio Chest CT Angio Chest INDICATION: Reason: PE suspected, Intermediate prob, positive D-dimer; Clinical Question(s): Pulmonary Embolism TECHNIQUE: Spiral CTA of the chest was performed after rapid IV contrast administration without cardiac gating, triggered by an GILDA on the main pulmonary artery. Images are formatted in multiple planes using 2-D multiplanar and 3-D maximum intensity projection. 100 cc of Isovue 300 was administered intravenously. Weight-based protocol using automatic tube modulation was used to optimize exposure parameters. CTDIvol Body: 12.47 mGy, DLP Body: 835 mGy*cm. COMPARISONS: None. ANGIOGRAPHIC FINDINGS: No pulmonary embolism to the segmental level. Motion degradation mildly limits assessment of distal vessels. Normal caliber pulmonary arteries. No interventricular septal bowing. Reflux into the IVC is present. Severe atherosclerotic calcification of the aorta without acute abnormality on this study performed without cardiac gating. NON-ANGIOGRAPHIC FINDINGS: Black Powder Glazing Operator view findings, lines and tubes: Dual-lead implanted left subclavian pacemaker. Trachea and airways: Patent without evidence of tracheal or endobronchial lesion. Lungs and pleura: Status post right upper lobectomy. Nodular opacities in the right lower lobe measuring up to 2.0 x 1.3 cm. Consolidation in the dependent left lower lobe. Geographic areas of groundglass opacity and interlobular septal thickening. Small left and moderate right pleural effusion. No pneumothorax Mediastinum and giselle: No mass or hematoma. Subcarinal lymph node measuring up to 1 cm, nonspecific, may be reactive. Small type I hiatal hernia. Normal right thyroid lobe. Left thyroid lobe not seen, likely surgically absent. Heart: Heart is normal in size. Trace pericardial fluid without curry effusion. Severe coronary artery calcification. Chest wall soft tissues: No acute abnormality. Diaphragm: Intact. Upper abdomen: Multiple cysts and subcentimeter hypodensities seen within the liver. Bones: No acute abnormality. IMPRESSION: No evidence of pulmonary embolism. Consolidation in the dependent left lower lobe may represent aspiration or pneumonia. Nodular opacity seen in the right lower lobe which may be infectious or inflammatory. Recommend follow-up chest CT in 6-8 weeks to exclude underlying neoplasm. Likely superimposed pulmonary edema with moderate right and small left pleural effusions. I have personally reviewed the images and I agree with this report. WSN: [id number] Ordering Physician: Fred Patel Reason For Exam PE suspected, Intermediate prob, positive D-dimer;Other: Signature Line Dictated By: Joshua Hale DO Dictated Date/Time: 08/11/24 7:15 am Reviewed By: Oracio Evans MD Signed By: Oracio Evans MD Signed Date/Time: 08/11/24 7:20 am Transcribed By: MAY Assessment & Plan Assessment & Plan (1) History of recent pneumonia: Code(s): Z87.01 - Personal history of pneumonia (recurrent) Category: Medical (2) COPD (chronic obstructive pulmonary disease): Code(s): J44.9 - Chronic obstructive pulmonary disease, unspecified Category: Medical (3) Obstructive sleep apnea: Code(s): G47.33 - Obstructive sleep apnea (adult) (pediatric) Category: Medical (4) Personal history of tobacco use: Code(s): Z87.891 - Personal history of nicotine dependence Category: Social Hx (5) Nocturnal hypoxemia: Code(s): G47.34 - Idiopathic sleep related nonobstructive alveolar hypoventilation Category: Medical Plan Shane reports moderate improvement in symptoms since being treated with CHF and PNA. Will send for repeat Chest CT in 6-8 weeks to assess for resolution of LLL PNA and further assess nodular opacity RLL. He is aware if symptoms recur to call office. Reviewed prior records which revealed severe XAVIER and required BiPAP during hospital stay. Patient not interested in repeating a sleep study nor attempting CPAP therapy again however agreeable to nocturnal supplemental oxygen if warranted. Will send for overnight oximetry on room air to assess need. All questions were answered and patient is in agreement of plan. Will follow up to review results or sooner if needed. Orders: Orders Overnight Pulse Oximetry 08/21/24 G47.34 - Idiopathic sleep related nonobstructive alveolar hypoventilation CT chest wo IV con 6 Weeks Z87.01 - Personal history of pneumonia (recurrent) Coding Level of Care Code Est Pt Level 4 (22358) Complex EM visit Add On G2211 Diagnoses History of recent pneumonia Z87.01 COPD (chronic obstructive pulmonary disease) J44.9 Obstructive sleep apnea G47.33 Personal history of tobacco use Z87.891 Nocturnal hypoxemia G47.34
[2024-08-21 15:29] VITALS: BP 140/72; PULSE 89; O2SAT 97; BMI 31.8
--- OUTSIDE RECORDS SUMMARY | 2024-08-21 16:36 | XMS_ITS | Clinical Summary ---
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 Patient is a former smoker with a [id number] history. He states during ambulation he has to take very frequent breaks due to feeling winded . He continues to have some discomfort along his surgical incisional sites however he states that it is manageable. While patient was in office reviewed his most recent chest CT scan which was performed at [facility] on July 31, 2021 and shows [...] Care Team Description 05/29/2024 Telephone Pulmonolgy - [place] [address] [place] [address] Canelo Valles MD documentation request from Last 3 Months Immunizations Name Administration Dates Next Due Tdap Tetanus diptheria acell ular pertussis (Boostrix; Adacel) 7yo and older 04/18/2008 Surgical History Surgery Date Site/Laterality Comments OTHER SURGICAL HISTORY PROCEDURE: HISTORICAL SUBTOTAL THYROIDECTOMY; COMMENT: Benign thyroid nodule COLONOSCOPY 06/05/08 PROCEDURE: IN COLONOSCOPY STOMA DX INCLUDING COLLJ SPEC SPX; COMMENT: Up to cecum, ascending polyp removed:Adenomatous, Hepatic flexure polyp removed:TA, Sigmoid polyp removed:Hyperplastic. NOT removed 1 polyp at asceding and 2 polyps at transverse OTHER SURGICAL HISTORY PROCEDURE: IN RADIAL KERATOTOMY; COMMENT: left eye Medical History [...] * Polysomnography (06/16/2024 11:24 AM EDT) Result [facility] Provider SLEEP CENTER ORDERABLES F inal Result * Annual BMP Blood Test (05/07/2023) Pathologist [facility] Annual BMP Blood Test abstracted Result [facility] Provider HEALTH MAINTENANCE Final Result * Lipid panel (01/14/2023) Pathologist [facility] LDL/HDL Ratio 0 0 - 0 Triglycerides 0 0 - 0 mg/dL Cholesterol 0 0 - 0 mg/dL HDL 0 0 - 0 mg/dL LDL Cholesterol 0 0 - 0 mg/dL Blood Venous blood specimen / Unknown Result [facility] Provider LAB BLOOD ORDERABLES Terese l Result * Abdominal Aortic Aneurysm Screen (08/02/2008) Pathologist [facility] Abdominal Aortic Aneurysm (AAA) Screening abstracted Anatomical Region Laterality Modality Other [facility] Provider HEALTH MAINTENANCE Final Result from Last 3 Months or Most Recently Relevant to Health Maintenance Insurance [place]IC[place] Advance Directives Documents on File Type Date Recorded Patient Home Service Advisor Expl anation Health Care Decision (hx) 06/20/2021 [...] (hx) 06/18/2021 AD HURTAD[place] DIRECTIVE Care Teams Manager Social Responsibility Relationship Specialty Start Date End Date Kojo Fermin MD [address] [place] [id number] PCP - General Internal Medicine 03/27/21
== END 2024-08-21 15:55 | disposition home or self-care (01) ==
LOC: HO.HPS 15:25
PROVIDERS: PCP Internal Medicine; Visit Provider Nurse Practitioner Family
DX: Z87.01 Personal history of pneumonia (recurrent) (principal); J44.9 Chronic obstructive pulmonary disease, unspecified; G47.33 Obstructive sleep apnea (adult) (pediatric); Z87.891 Personal history of nicotine dependence; G47.34 Idiopathic sleep related nonobstructive alveolar hypoventilation
CPT/HCPCS: 99214; G2211

== ENCOUNTER → 2024-08-21 15:24 | Outpatient (BNVA) | payer MEDICARE, MEDICAID, SELFPAY | PROVIDERS: PCP Internal Medicine; Visit Provider Nurse Practitioner Family | DX: J44.9 Chronic obstructive pulmonary disease, unspecified (principal); G47.33 Obstructive sleep apnea (adult) (pediatric); G47.34 Idiopathic sleep related nonobstructive alveolar hypoventilation; Z87.891 Personal history of nicotine dependence; Z87.01 Personal history of pneumonia (recurrent) | CPT/HCPCS: 99212 ==

== ENCOUNTER 2024-08-29 15:08 | Outpatient (AMB) | payer MEDICARE, MEDICAID, SELFPAY ==
[2024-08-29 15:31] VITALS: BP 120/80; PULSE 88; BMI 31.4
--- NOTE | 2024-08-29 15:31 | MHC.OFFVIS ---
Vital Signs 08/29/24 15:31 Height 6 ft Weight 231 lb 7.766 oz BMI 31.4 BP 120/80 Blood Pressure Location Lt brachial Position Sitting Pulse 88 Intake Visit Reasons: 6 wk f/up per NS Intake Note: 6 week follow-up still in afib with Medtronic check Roll Table Operator Required: No Allergies No Known Allergies [No Known Allergies*] Allergy (Verified 08/21/24 15:32) Medication List - Last Reconciled 08/29/24 by Danilo Em MD acetaminophen 650 mg (2 x 325 mg) PO Q6H PRN albuterol sulfate 90 mcg/actuation 2 puffs inhalation QID PRN allopurinol 100 mg PO DAILY amlodipine 10 mg PO DAILY apixaban (Eliquis) 5 mg PO BID aspirin 81 mg PO DAILY atorvastatin 40 mg PO DAILY cholecalciferol (vitamin D3) (Vitamin D3) 25 mcg PO DAILY colchicine 0.6 mg PO BID PRN cyanocobalamin (vitamin B-12) (Vitamin B-12) 500 mcg PO DAILY famotidine 40 mg PO BID qbwriyhzvtg-yvvjigvro-jvvpimqm 200-62.5-25 mcg (Trelegy Ellipta) 1 ea inhalation DAILY furosemide (Lasix) 20 mg PO DAILY gabapentin 600 mg PO BID ipratropium-albuterol 0.5 mg-3 mg(2.5 mg base)/3 mL 3 mL inhalation TID PRN magnesium oxide 400 mg PO BIDWM omega-3 acid ethyl esters 2 caps PO BID oxycodone 5 mg PO Q6H PRN HPI Comments Details: Vineet comes for follow-up. Said he is still feels very fatigued and tired and very short of breath. He underwent a AV spencer ablation with a dual-chamber pacemaker placement. Still taking oral anticoagulation therapy. Denies any clear orthopnea, PND. Denies any anginal symptoms. [facility] Medical History Atrial flutter CAD (coronary artery disease) Atrial fibrillation Junctional bradycardia COVID-19 Blindness of left eye History of eye prosthesis Thyroid disease GERD (gastroesophageal reflux disease) Numbness On beta patrick at home On anticoagulant therapy Murmur PVD (peripheral vascular disease) Myocardial infarction Alcohol dependence Post laminectomy syndrome Asthma Renal stones COPD (chronic obstructive pulmonary disease) Anemia Hepatitis C Hyperlipidemia HTN (hypertension) SVT (supraventricular tachycardia) Surgical History Hx of eye surgery History of esophagogastroduodenoscopy (EGD) H/O colonoscopy S/P lobectomy of lung (~05/2021) Stented coronary artery Hx of thyroidectomy History of back surgery Hx of cardiac cath Family History Father Cancer Mother CVD (cardiovascular disease) Social History Household Members: None Housing: Apartment Are you a primary career education teacher to a significant other at home: No Do you presently have visiting nurse or other home services: No Alcohol intake: current Alcohol intake frequency: 0-2 drinks per day Alcohol type: hard liquor Patient Tobacco Use Status: Former Tobacco user Tobacco use type: Cigarette Cigarette Packs Per Day: 1 Cigarettes Per Day: 20.0 Years Smoked: 40/ Stopped at age 54 Second Hand Smoke Exposure: No Substance Use Type: Marijuana Advance Directives Date on File: 09/09/23 service: No Review of Systems Const Denies chills, Denies fatigue, Denies fever(s), Denies frequent falls, Denies weakness, Denies weight gain and Denies weight loss ENT Denies dizziness Card Denies chest pain, Denies leg edema, Denies lightheadedness, Denies palpitations, Denies dyspnea, Denies dyspnea on exertion, Denies orthopnea and Denies other (loss of consciousness) Resp Denies cough, Denies dyspnea and Denies dyspnea on exertion GI Denies hematochezia and Denies change in stool character Musc Denies abnormal gait, Denies muscle weakness, Denies numbness, Denies radiating pain into limb and Denies tingling Neuro Denies abnormal gait, Denies dizziness, Denies frequent falls, Denies numbness, Denies tingling and Denies weakness Endo Denies fatigue and Denies palpitations Physical Exam Vital Signs: Last Vital Signs Pulse 88 08/29/24 15:31 BP 120/80 08/29/24 15:31 BMI result Body Mass Index 31.4 Const General: cooperative, comfortable, no acute distress, alert and awake Nutritional Appearance: overweight Orientation/consciousness: patient oriented x3 Limitations: no limitations Neck Neck: Yes trachea midline and Yes no JVD Resp Effort & Inspection: normal respiratory effort Auscultation: clear to auscultation bilaterally Cardio Jugular venous distension: no JVD Palpation: normal PMI Rate: regular rate Rhythm: regular rhythm and abnormal rhythm irregularly irregular Heart sounds: S1 normal heart sound present, S2 normal heart sound present, no click, no gallops, Murmur heart sound present systolic mid and no rubs GI Auscultation: normal bowel sounds Skin General skin exam: ecchymosis Neuro General: patient oriented x3 and no focal motor deficits Extrem General: Yes no clubbing, cyanosis or edema Office Procedures Cardiac Device Check Cardiac Device Check Details: Dual-chamber Medtronic pacemaker which was programmed in VVI 90 beats per minute. Rate was reprogrammed to 80 beats per minute. Patient noted to be in persistent atrial flutter. RV pacing thresholds excellent and reprogrammed to enhance battery life. Atrial and ventricular pacing lead impedance stable. Battery life is excellent. [id number] Cardiac Device Check, pacemaker dual lead Procedure code (CPT) selection complete Assessment & Plan Assessment & Plan (1) Atrial flutter: Code(s): I48.92 - Unspecified atrial flutter Category: Medical Plan: Persistent atrial flutter and significant persistent symptoms exertional shortness of fatigue. No signs of congestive heart failure. I think this is despite adequate rate control still related to loss of AV synchrony. Has undergone AV spencer ablation. Currently rate is well controlled. Continue full oral anticoagulation, currently on Eliquis 5 mg b.i.d.. Quarterly renal function test should be pursued. At current time there has no clear use for additional aspirin therapy and should be discontinued to reduce bleeding risk. Discussed with electrophysiology about possibly pursuing rhythm control approach. Will follow him up in the clinic meanwhile I have reduced his heart rate to 80 beats per minute, that may also help his symptoms. (2) Cardiac pacemaker in situ: Code(s): Z95.0 - Presence of cardiac pacemaker Category: Medical Plan: Cardiac pacemaker in-situ status post AV spencer ablation. Pacemaker seems to be working well. Will follow remotely. (3) CAD (coronary artery disease): Code(s): I25.10 - Atherosclerotic heart disease of [place] coronary artery without angina pectoris Category: Medical Plan: CAD with prior VT and RCA stent. Had persistent infarct pattern in the inferior wall. No ischemia. I do not think his symptoms are related to myocardial ischemia at this point time. Continue high-intensity statin therapy. Continue aggressive risk factor modification. Blood pressure is optimized. Currently on Eliquis therapy and that should be continued. I do not think he has additional reason to be on aspirin therapy at this point time. (4) Aortic stenosis: Code(s): I35.0 - Nonrheumatic aortic (valve) stenosis Category: Medical Plan: Aortic stenosis appears to be moderate to moderately severe by echocardiogram. Clinically as well. Follow-up echocardiogram in 3 months. Follow up in the clinic after that. If he has progressive aortic stenosis may require further evaluation for transcatheter aortic valve replacement. Will follow up in the clinic in 3 months time, sooner p.r.n.. Thank you for allowing me to partake in his care Orders: Orders CA echo transthoracic complete 3 Months I35.0 - Nonrheumatic aortic (valve) stenosis Coding Level of Care Code Est Pt Level 4 (58524) Complex EM visit Add On G2211 Diagnoses Atrial flutter I48.92 Cardiac pacemaker in situ Z95.0 CAD (coronary artery disease) I25.10 Aortic stenosis I35.0 CPT Codes Cardiac Device Check - Cardiac Device 2: [id number] Cardiac Device Check, pacemaker dual lead ([id number])
--- OUTSIDE RECORDS SUMMARY | 2024-08-29 18:15 | XMS_ITS | Clinical Summary ---
Author Organization [facility] Address [address] [place] [address] Phone Care Team Providers Care Industrial Economics Professor Name Role Phone Kojo Fermin MD Primary Care Provider [phone] Allergies No known active allergies Medications albuterol [...] to pulmonary rehab as well as a exercise physiologist. Patient is a former smoker with a [id number] history. He states during ambulation he has to take very frequent breaks due to feeling winded . He continues to have some discomfort along his surgical incisional sites however he states that it is manageable. While patient was in office reviewed his most recent chest CT scan which was performed at [facility] on July 31, 2021 and [...] Care Team Description 05/29/2024 Telephone Pulmonolgy - [place] [address] [place] [address] Canelo Valles MD documentation request from Last 3 Months Immunizations Name Administration Dates Next Due Tdap Tetanus diptheria acell ular pertussis (Boostrix; Adacel) 7yo and older 04/18/2008 Surgical History Surgery Date Site/Laterality Comments OTHER SURGICAL HISTORY PROCEDURE: HISTORICAL SUBTOTAL THYROIDECTOMY; COMMENT: Benign thyroid nodule COLONOSCOPY 06/05/08 PROCEDURE: [place] COLONOSCOPY STOMA DX INCLUDING COLLJ SPEC SPX; COMMENT: Up to cecum, ascending polyp removed:Adenomatous, Hepatic flexure polyp removed:TA, Sigmoid polyp removed:Hyperplastic. NOT removed 1 polyp at asceding and 2 polyps at transverse OTHER SURGICAL HISTORY PROCEDURE: [place] RADIAL KERATOTOMY; COMMENT: left eye Medical History [...] * Polysomnography (06/16/2024 11:24 AM EDT) Result [facility] Provider SLEEP CENTER ORDERABLES F inal Result * Annual BMP Blood Test (05/07/2023) Pathologist [facility] Annual BMP Blood Test abstracted Result [facility] Provider HEALTH MAINTENANCE Final Result * Lipid panel (01/14/2023) Pathologist [facility] LDL/HDL Ratio 0 0 - 0 Triglycerides 0 0 - 0 mg/dL Cholesterol 0 0 - 0 mg/dL HDL 0 0 - 0 mg/dL LDL Cholesterol 0 0 - 0 mg/dL Blood Venous blood specimen / Unknown Result [facility] Provider LAB BLOOD ORDERABLES Terese l Result * Abdominal Aortic Aneurysm Screen (08/02/2008) Pathologist [facility] Abdominal Aortic Aneurysm (AAA) Screening abstracted Anatomical Region Laterality Modality Other [facility] Provider HEALTH MAINTENANCE Final Result from Last 3 Months or Most Recently Relevant to Health Maintenance Insurance [place] Advance Directives Documents on File Type Date Recorded Patient Community Health Nursing Director Expl anation Health Care Decision (hx) 06/20/2021 [...] (hx) 06/18/2021 AD HURTADO DIRECTIVE Care Teams Industrial Economics Professor Relationship Specialty Start Date End Date Kojo Fermin MD [address] [place] [id number] PCP - General Internal Medicine 03/27/21
== END 2024-08-29 15:57 | disposition home or self-care (01) ==
LOC: HO.HCS 15:09
PROVIDERS: PCP Internal Medicine; Visit Provider Internal Medicine Cardiovascular Disease
DX: I48.92 Unspecified atrial flutter (principal); Z95.0 Presence of cardiac pacemaker; I25.10 Atherosclerotic heart disease of native coronary artery without angina pectoris; I35.0 Nonrheumatic aortic (valve) stenosis
CPT/HCPCS: 93280; 99214; G2211

== ENCOUNTER → 2024-08-29 15:08 | Outpatient (BNVA) | payer MEDICARE, MEDICAID, SELFPAY | PROVIDERS: PCP Internal Medicine; Visit Provider Internal Medicine Cardiovascular Disease | DX: I48.92 Unspecified atrial flutter (principal); I25.10 Atherosclerotic heart disease of native coronary artery without angina pectoris; I10 Essential (primary) hypertension; I35.0 Nonrheumatic aortic (valve) stenosis; Z79.01 Long term (current) use of anticoagulants; Z45.010 Encounter for checking and testing of cardiac pacemaker pulse generator [battery] | CPT/HCPCS: 93280; 99212 ==

== ENCOUNTER → 2024-08-30 23:59 | Outpatient (BNV) | payer MEDICARE, MEDICAID, SELFPAY ==
--- NOTE | 2024-09-01 16:19 | MHC.OFFVIS ---
Intake Visit Reasons: Remote device check- Medtronic Allergies No Known Allergies [No Known Allergies*] Allergy (Verified 08/21/24 15:32) PFSH Medical History (Updated 08/22/24 @ 10:28 by Mis Stephens NP) Atrial flutter CAD (coronary artery disease) Atrial fibrillation Junctional bradycardia COVID-19 Blindness of left eye History of eye prosthesis Thyroid disease GERD (gastroesophageal reflux disease) Numbness On beta patrick at home On anticoagulant therapy Murmur PVD (peripheral vascular disease) Myocardial infarction Alcohol dependence Post laminectomy syndrome Asthma Renal stones COPD (chronic obstructive pulmonary disease) Anemia Hepatitis C Hyperlipidemia HTN (hypertension) SVT (supraventricular tachycardia) Surgical History Hx of eye surgery History of esophagogastroduodenoscopy (EGD) H/O colonoscopy S/P lobectomy of lung (~05/2021) Stented coronary artery Hx of thyroidectomy History of back surgery Hx of cardiac cath Family History Father Cancer Mother CVD (cardiovascular disease) Social History Household Members: None Housing: Apartment Are you a primary home care and home health aides teacher to a significant other at home: No Do you presently have visiting nurse or other home services: No Alcohol intake: current Alcohol intake frequency: 0-2 drinks per day Alcohol type: hard liquor Patient Tobacco Use Status: Former Tobacco user Tobacco use type: Cigarette Cigarette Packs Per Day: 1 Cigarettes Per Day: 20.0 Years Smoked: 40/ Stopped at age 54 Second Hand Smoke Exposure: No Substance Use Type: Marijuana Advance Directives Date on File: 09/09/23 service: No Office Procedures Cardiac Device Check Cardiac Device Check Details: Remote pacemaker report generated 08/31/2024. Pacemaker function is adequate. [id number] Cardiac Device Interrogation, pacemaker Procedure code (CPT) selection complete Assessment & Plan Assessment & Plan (1) Cardiac pacemaker in situ: Code(s): Z95.0 - Presence of cardiac pacemaker Category: Medical Plan: See above Coding Level of Care Code Procedure Only Diagnoses Cardiac pacemaker in situ Z95.0 CPT Codes Cardiac Device Check - Cardiac Device 12: [id number] Cardiac Device Interrogation, pacemaker ([id number])
== END ==
PROVIDERS: PCP Internal Medicine; Visit Provider Internal Medicine Cardiovascular Disease
DX: Z45.018 Encounter for adjustment and management of other part of cardiac pacemaker (principal)
CPT/HCPCS: 93294

== ENCOUNTER 2024-09-12 09:00 | Outpatient (RCR) | payer MEDICARE, MEDICAID, SELFPAY | END 2024-09-12 11:21 | disposition home or self-care (01) | LOC: HO.WCC 09:00 | PROVIDERS: Visit Provider Surgery | DX: S51.812A Laceration without foreign body of left forearm, initial encounter (principal); S50.812A Abrasion of left forearm, initial encounter; I48.91 Unspecified atrial fibrillation; I25.10 Atherosclerotic heart disease of native coronary artery without angina pectoris; E11.40 Type 2 diabetes mellitus with diabetic neuropathy, unspecified; I11.0 Hypertensive heart disease with heart failure; I50.9 Heart failure, unspecified; I25.2 Old myocardial infarction; X58.XXXA Exposure to other specified factors, initial encounter; Y93.9 Activity, unspecified; Y92.9 Unspecified place or not applicable; Y99.9 Unspecified external cause status; Z79.01 Long term (current) use of anticoagulants; Z85.118 Personal history of other malignant neoplasm of bronchus and lung; Z79.891 Long term (current) use of opiate analgesic; Z87.891 Personal history of nicotine dependence; Z79.899 Other long term (current) drug therapy | CPT/HCPCS: 97597; 99211; 99212 ==

== ENCOUNTER 2024-10-02 14:37 | Outpatient (AMB) | payer MEDICARE, MEDICAID, SELFPAY ==
--- NOTE | 2024-10-02 14:50 | A.OFFVIS_ITS ---
Vital Signs 10/02/24 14:51 Height 6 ft Weight 233 lb 11.04 oz BMI 31.7 BP 130/84 Blood Pressure Location Lt brachial Position Sitting Pulse 84 Intake Visit Reasons: f/u echo results Intake Note: Follow-up echo results c/o fatigue Rough Planer Tender Required: No Anchorman: Anchorman Present Accompanied by: Spouse Allergies No Known Allergies (No Known Allergies*) Allergy (Verified 08/21/24 15:32) HPI Comments Details: Shane comes for follow-up. He said he has been having significant continued symptoms exertional fatigue and tiredness and shortness of breath. He had an echocardiogram at outside facility recently which showed severe with mean gradient in the low mid 40s with valve area below 1 cm2. He comes for further evaluation. He denies any orthopnea, PND, leg edema. He is just very frustrated with his continued symptoms. Takes all his medications. Has a follow-up coming with electrophysiology in about 10 days. He denies any lightheadedness, syncope. Denies any chest pressure symptoms. ON LICENSE OF [facility] Medical History (Updated 10/03/24 @ 08:38 by Danilo Em MD) Atrial fibrillation Paroxysmal atrial fibrillation Atrial flutter CAD (coronary artery disease) Junctional bradycardia COVID-19 Blindness of left eye History of eye prosthesis Thyroid disease GERD (gastroesophageal reflux disease) Numbness On beta patrick at home On anticoagulant therapy Murmur PVD (peripheral vascular disease) Myocardial infarction Alcohol dependence Post laminectomy syndrome Asthma Renal stones COPD (chronic obstructive pulmonary disease) Anemia Hepatitis C Hyperlipidemia HTN (hypertension) SVT (supraventricular tachycardia) Surgical History Hx of eye surgery History of esophagogastroduodenoscopy (EGD) H/O colonoscopy S/P lobectomy of lung (~05/2021) Stented coronary artery Hx of thyroidectomy History of back surgery Hx of cardiac cath Family History Father Cancer Mother CVD (cardiovascular disease) Social History Household Members: None Housing: Apartment Are you a primary certified social workers in health care to a significant other at home: No Do you presently have visiting nurse or other home services: No Alcohol intake: current Alcohol intake frequency: 0-2 drinks per day Alcohol type: hard liquor Patient Tobacco Use Status: Former Tobacco user Tobacco use type: Cigarette Cigarette Packs Per Day: 1 Cigarettes Per Day: 20.0 Years Smoked: 40/ Stopped at age 54 Second Hand Smoke Exposure: No Substance Use Type: Marijuana Advance Directives Date on File: 09/09/23 service: No Review of Systems Const Denies chills, Denies fatigue, Denies fever(s), Denies frequent falls, Denies weakness, Denies weight gain and Denies weight loss ENT Denies dizziness Card Denies chest pain, Denies leg edema, Denies lightheadedness, Denies palpitations, Denies dyspnea, Denies dyspnea on exertion, Denies orthopnea and Denies other (loss of consciousness) Resp Denies cough, Denies dyspnea and Denies dyspnea on exertion GI Denies hematochezia and Denies change in stool character Musc Denies abnormal gait, Denies muscle weakness, Denies numbness, Denies radiating pain into limb and Denies tingling Neuro Denies abnormal gait, Denies dizziness, Denies frequent falls, Denies numbness, Denies tingling and Denies weakness Endo Denies fatigue and Denies palpitations Physical Exam Vital Signs: Last Vital Signs Pulse 84 10/02/24 14:51 BP 130/84 10/02/24 14:51 BMI result Body Mass Index 31.7 Const General: cooperative, comfortable, no acute distress, alert and awake Nutritional Appearance: overweight Orientation/consciousness: patient oriented x3 Limitations: no limitations Neck Neck: Yes trachea midline and Yes no JVD Resp Effort & Inspection: normal respiratory effort Auscultation: clear to auscultation bilaterally Cardio Jugular venous distension: no JVD Palpation: normal PMI Rate: regular rate Rhythm: regular rhythm and abnormal rhythm irregularly irregular Heart sounds: S1 normal heart sound present, no click, no gallops, Murmur heart sound present systolic late and decrescendo, no rubs and Other heart sounds present (Very soft S2) GI Auscultation: normal bowel sounds Skin General skin exam: ecchymosis Neuro General: patient oriented x3 and no focal motor deficits Extrem General: Yes no clubbing, cyanosis or edema Assessment & Plan Assessment & Plan (1) Aortic stenosis: Code(s): I35.0 - Nonrheumatic aortic (valve) stenosis Category: Medical Plan: Aortic stenosis by recent echocardiogram at outside facility shows severe aortic stenosis. This could easily explain some of his symptoms with exertional fatigue as well as shortness of breath. However he has underlying persistent atrial fibrillation which has bothered him as well. However I think he would benefit from further evaluation of his aortic stenosis and if severe to pursue transcatheter valve replacement. Given his multiple comorbidities I do not think so he will be a good surgical candidate. Will continue with further workup. Suggest a cardiac catheterization with hemodynamic evaluation with severe aortic stenosis. If confirmed will require evaluation by TAVR team and CAT scans of chest and groin vessels to assess for the size of the valve as well as feasibility of pursuing transfemoral route. This was discussed with him details. The whole process was discussed with him. He appeared a little frustrated but understands the process. Meanwhile continue current medical therapy. Advised to call any worsening symptoms. Planning to travel in near future to meet his son in [place], will plan for cardiac catheterization after he comes back. (2) CAD (coronary artery disease): Code(s): I25.10 - Atherosclerotic heart disease of [place] coronary artery without angina pectoris Category: Medical Plan: CAD with prior inferior TN with RCA stent. Currently having no clear anginal symptoms. Continue aggressive medical therapy. Continue high-intensity statin therapy. Continue aggressive blood pressure control which is currently well optimized. Currently on full oral anticoagulation therefore would avoid aspirin therapy to reduce bleeding risk. (3) Atrial fibrillation: Code(s): I48.91 - Unspecified atrial fibrillation Category: Medical Plan: Persistent atrial fibrillation flutter status post AV spencer ablation due to failure of rhythm control. At this point time will continue with rate control approach. I think this also contributes to his symptoms exertional fatigue and shortness of breath. Although he has been followed by electrophysiology closely. Continue full oral anticoagulation, currently on apixaban 5 mg b.i.d.. Semi annual renal function test should be pursued. (4) Cardiac pacemaker in situ: Code(s): Z95.0 - Presence of cardiac pacemaker Category: Medical Plan: Cardiac pacemaker in-situ, set at a high rate. Has a follow up with electrophysiology in near future she gradually tone down in his heart rate to reduce myocardial workload. Will follow up in clinic in 3 months time, sooner p.r.n.. Thank you for allowing me to partake in his care Coding Level of Care Code Est Pt Level 4 (65413) Complex EM visit Add On G2211 Diagnoses Aortic stenosis I35.0 CAD (coronary artery disease) I25.10 Atrial fibrillation I48.91 Cardiac pacemaker in situ Z95.0
[2024-10-02 14:51] VITALS: BP 130/84; PULSE 84; BMI 31.7
--- OUTSIDE RECORDS SUMMARY | 2024-10-02 15:54 | XMS_ITS | Clinical Summary ---
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 Patient is a former smoker with a 57-hzjv-bwof history. He states during ambulation he has to take very frequent breaks due to feeling winded . He continues to have some discomfort along his surgical incisional sites however he states that it is manageable. While patient was in office reviewed his most recent chest CT scan which was performed at [facility] on July 31, 2021 and shows [...] COMMENT: Benign thyroid nodule COLONOSCOPY 06/05/08 PROCEDURE: [place] COLONOSCOPY STOMA DX INCLUDING COLLJ SPEC SPX; COMMENT: Up to cecum, ascending polyp removed:Adenomatous, Hepatic flexure polyp removed:TA, Sigmoid polyp removed:Hyperplastic. NOT removed 1 polyp at asceding and 2 polyps at transverse OTHER SURGICAL HISTORY PROCEDURE: [place] RADIAL KERATOTOMY; COMMENT: left eye Medical History [...] BMP Blood Test 05/07/2024 05/07/2023 Influenza Vaccine (#1) 2024 Cholesterol Screening (Lipid Panel) 01/15/2028 01/14/2023 [...] mg/dL Blood Venous blood specimen / Unknown Historical Provider LAB BLOOD ORDERABLES Terese l Result * Abdominal Aortic Aneurysm Screen (08/02/2008) Pathologist [facility] Abdominal Aortic Aneurysm (AAA) Screening abstracted Anatomical Region Laterality Modality Other Historical Provider HEALTH MAINTENANCE Final Result from Last 3 Months or Most Recently Relevant to Health Maintenance Insurance [place] Advance Directives Documents on File Type Date Recorded Patient Plastic Process Technician Expl anation Health Care Decision (hx) 06/20/2021 [...] (hx) 06/18/2021 AD HURTADO DIRECTIVE Care Teams Landscape Architect Relationship Specialty Start Date End Date Kojo Fermin MD [address] [place] [address] PCP - General Internal Medicine 03/27/21
== END 2024-10-02 15:24 | disposition home or self-care (01) ==
LOC: HO.HCS 14:37
PROVIDERS: PCP Internal Medicine; Visit Provider Internal Medicine Cardiovascular Disease
DX: I35.0 Nonrheumatic aortic (valve) stenosis (principal); I25.10 Atherosclerotic heart disease of native coronary artery without angina pectoris; I48.91 Unspecified atrial fibrillation; Z95.0 Presence of cardiac pacemaker
CPT/HCPCS: 99214; G2211

== ENCOUNTER → 2024-10-02 14:37 | Outpatient (BNVA) | payer MEDICARE, MEDICAID, SELFPAY | PROVIDERS: PCP Internal Medicine; Visit Provider Internal Medicine Cardiovascular Disease | DX: Z71.2 Person consulting for explanation of examination or test findings (principal); I35.0 Nonrheumatic aortic (valve) stenosis; I25.10 Atherosclerotic heart disease of native coronary artery without angina pectoris; I48.91 Unspecified atrial fibrillation; Z95.0 Presence of cardiac pacemaker | CPT/HCPCS: 99212 ==

== ENCOUNTER → 2024-10-14 23:59 | Outpatient (BNV) | payer MEDICARE, MEDICAID, SELFPAY ==
--- NOTE | 2024-10-18 17:15 | MHC.OFFVIS ---
Intake Visit Reasons: Remote device check- [employer] Allergies No Known Allergies (No Known Allergies*) Allergy (Verified 08/21/24 15:32) [facility] Medical History (Updated 10/03/24 @ 08:38 by Danilo Em MD) Atrial fibrillation Paroxysmal atrial fibrillation Atrial flutter CAD (coronary artery disease) Junctional bradycardia COVID-19 Blindness of left eye History of eye prosthesis Thyroid disease GERD (gastroesophageal reflux disease) Numbness On beta patrick at home On anticoagulant therapy Murmur PVD (peripheral vascular disease) Myocardial infarction Alcohol dependence Post laminectomy syndrome Asthma Renal stones COPD (chronic obstructive pulmonary disease) Anemia Hepatitis C Hyperlipidemia HTN (hypertension) SVT (supraventricular tachycardia) Surgical History Hx of eye surgery History of esophagogastroduodenoscopy (EGD) H/O colonoscopy S/P lobectomy of lung (~05/2021) Stented coronary artery Hx of thyroidectomy History of back surgery Hx of cardiac cath Family History Father Cancer Mother CVD (cardiovascular disease) Social History Household Members: None Housing: Apartment Are you a primary career technical education instructor to a significant other at home: No Do you presently have visiting nurse or other home services: No Alcohol intake: current Alcohol intake frequency: 0-2 drinks per day Alcohol type: hard liquor Patient Tobacco Use Status: Former Tobacco user Tobacco use type: Cigarette Cigarette Packs Per Day: 1 Cigarettes Per Day: 20.0 Years Smoked: 40/ Stopped at age 54 Second Hand Smoke Exposure: No Substance Use Type: Marijuana Advance Directives Date on File: 09/09/23 service: No Office Procedures Cardiac Device Check Cardiac Device Check Details: Remote pacemaker report generated 10/14/2024. Pacemaker function is adequate. Persistent atrial fibrillation noted [id number] Cardiac Device Interrogation, pacemaker Procedure code (CPT) selection complete Assessment & Plan Assessment & Plan (1) Cardiac pacemaker in situ: Code(s): Z95.0 - Presence of cardiac pacemaker Category: Medical Plan: See above Coding Level of Care Code Procedure Only Diagnoses Cardiac pacemaker in situ Z95.0 CPT Codes Cardiac Device Check - Cardiac Device 12: [id number] Cardiac Device Interrogation, pacemaker ([id number])
== END ==
PROVIDERS: PCP Internal Medicine; Visit Provider Internal Medicine Cardiovascular Disease
DX: I48.19 Other persistent atrial fibrillation (principal); Z95.0 Presence of cardiac pacemaker
CPT/HCPCS: 93294

== ENCOUNTER 2024-10-23 06:08 | Outpatient (REF) | payer MEDICARE, MEDICAID, SELFPAY ==
--- OUTSIDE RECORDS SUMMARY | 2024-10-23 06:11 | XMS_ITS | Clinical Summary ---
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 Patient is a former smoker with a [id number] history. He states during ambulation he has [...] COMMENT: Benign thyroid nodule COLONOSCOPY 06/05/08 PROCEDURE: NC COLONOSCOPY STOMA DX INCLUDING COLLJ SPEC SPX; COMMENT: Up to cecum, ascending polyp removed:Adenomatous, Hepatic flexure polyp removed:TA, Sigmoid polyp removed:Hyperplastic. NOT removed 1 polyp at asceding and 2 polyps at transverse OTHER SURGICAL HISTORY PROCEDURE: NC RADIAL KERATOTOMY; COMMENT: left eye Medical History [...] 04/18/2018 04/18/2008 Colorectal Cancer Screening: Colonoscopy 03/01/2022 Falls Risk Assessment 03/01/2022 Hepatitis C Screening 03/01/2022 Medicare Annual Wellness Visit 03/01/2022 Social Influencers of Health Screening 03/01/2022 COVID-19 Vaccine (1 - 2023-2 5 season) 2023 Depression Screening 03/22/2024 Hypertension/CHF/CAD Annual BMP Blood Test 05/07/2024 05/07/2023 [...] Test (05/07/2023) Annual BMP Blood Test abstracted [facility] Provider HEALTH MAINTENANCE Final Result * [...] Aortic Aneurysm Screen (08/02/2008) Pathologist [facility] Abdominal Aortic Aneurysm (AAA) Screening abstracted Anatomical Region Laterality Modality Other Historical Provider HEALTH MAINTENANCE Final Result from Last 3 Months or Most Recently Relevant to Health Maintenance Insurance [place] Advance Directives Documents on File Type Date Recorded Patient Taper [employer]ed [employer] Layout Expl anation Health Care Decision (hx) 06/20/2021 [...] (hx) 06/18/2021 AD H[employer] DIRECTIVE Care Teams Agile Test Lead Relationship Specialty Start Date End Date Kojo Fermin MD [address] [place] [address] PCP - General Internal Medicine 03/27/21
[2024-10-23 07:47] LABS: Hematocrit 34.3 % (42.0-52.0); Hemoglobin 11.4 g/dl (14.0-18.0); Mean Corpuscular HGB Conc 33.2 g/dl (31.0-36.0); Mean Corpuscular Hemoglobin 28.5 pg (27.0-33.0); Mean Corpuscular Volume 85.8 fL (80.0-98.0); NRBC Abs Auto 0.000 X10*3/uL (0.0-0.012); NRBC Pct Auto 0.0 /100WBC (0.0-0.2); Platelet Count 402 X10*3/uL (160-400); Red Blood Count 4.00 X10*6/uL (4.60-5.80); White Blood Count 9.1 X10*3/uL (4.8-10.8)
[2024-10-23 08:18] LABS: INTERNATIONAL NORM RATIO 1.7 (0.9-1.1); Prothrombin Time 19.8 SEC (10.9-12.4)
[2024-10-23 08:19] LABS: Anion Gap 13 (12-20); Blood Urea Nitrogen 14 mg/dL (9-16); Calcium 9.6 mg/dL (8.4-10.2); Carbon Dioxide 21 mmol/L (22-29); Chloride 107 mmol/L (96-108); Estimated Glomerular Filt Rate 59; Potassium 4.1 mmol/L (3.3-5.1); Sodium 137 mmol/L (135-145)
[2024-10-24 21:58] LABS: Prot Elec - Albumin 3.3 g/dL (3.8-4.8); Prot Elec - Alpha1 0.6 g/dL (0.2-0.3); Prot Elec - Alpha2 1.2 g/dL (0.5-0.9); Prot Elec - Beta 1 0.5 g/dL (0.4-0.6); Prot Elec - Beta 2 0.5 g/dL (0.2-0.5); Prot Elec - Gamma 0.8 g/dL (0.8-1.7); Prot Elec - Total Protein 6.8 g/dL (6.1-8.1)
[2024-10-26 11:29] LABS: PEU-Protein Creat Ratio Rand 0.260 (0.025-0.148); PEU-Rand. Prot/Creat Ratio 260 mg/g creat (25-148); PEU-Random Ur. Gamma Globulin 7 %; PEU-Random Urine A1 Globulin 8 %; PEU-Random Urine A2 Globulin 10 %; PEU-Random Urine Albumin 63 %; PEU-Random Urine Beta Globulin 12 %; PEU-Random Urine Creatinine 215 mg/dL (20-320); PEU-Random Urine Protein 56 mg/dL (5-25)
[2024-10-27 00:24] LABS: Kappa, Serum 196 mg/dL (176-443); Kappa/Lambda Ratio, Serum 1.68 (1.29-2.55); Lambda, Serum 117 mg/dL (91-240)
== END 2024-10-23 06:09 | disposition home or self-care (01) ==
LOC: HO.LAB 06:08
PROVIDERS: Surgery Vascular Surgery; PCP Internal Medicine; Visit Provider Internal Medicine Cardiovascular Disease
DX: Z51.81 Encounter for therapeutic drug level monitoring (principal); I48.0 Paroxysmal atrial fibrillation; I35.0 Nonrheumatic aortic (valve) stenosis; I73.9 Peripheral vascular disease, unspecified
CPT/HCPCS: 36415; 80048; 82570; 83883; 84156; 84165; 84166; 85027; 85610

== ENCOUNTER → 2024-11-02 23:59 | Outpatient (BNV) | payer MEDICARE, MEDICAID, SELFPAY | PROVIDERS: PCP Internal Medicine; Visit Provider Internal Medicine Cardiovascular Disease | DX: I50.30 Unspecified diastolic (congestive) heart failure (principal); I35.0 Nonrheumatic aortic (valve) stenosis; Z95.0 Presence of cardiac pacemaker | CPT/HCPCS: 93460; 99152 ==

== ENCOUNTER 2024-11-06 16:20 | Outpatient (REF) | payer MEDICARE, MEDICAID, SELFPAY ==
--- OUTSIDE RECORDS SUMMARY | 2024-11-02 15:00 | XMS_ITS | Continuity of Care Document ---
Author Organization [facility] ter Address [address] [place] [id number]- Care Team Providers Care Clinical Account Liaison Name Role Phone Kojo Fermin MD Primary Care Physician [phone] Encounter [facility] ACCT R [id number] Date(s): 11/02/24 - 11/02/[address] [address]- Discharge Disposition: A-D/C Home Attending Physician: Quinn Smyth MD Admitting Physician: Quinn Smyth MD Referring Physician: Danilo Em MD Encounter Type: Disch Daystay Allergies, Adverse Reactions, Alerts No Known Allergies Medications Albuterol (Eqv-ProAir HFA) 90 mcg/inh inhalation aerosol [...] number: 1 amiodarone 200 mg oral tablet See Instructions, Please take 2 tablets twice a day for 1 week. Then take 2 tablets once a day for 1 week. Then take 1 tablet daily., # 90 tablet, Refills 0, Tot. Refills 0, Maintenance, 11/02/24 11:29:00 AM EDT, Instructions Replace Required Details, Route to Pharmacy Electronically, [id number], Partial fill upon patient request if the prescription is for a schedule II opioid drug., 185, cm, 10/12/24 10:14:00 EDT, Height, 106.9, kg, 10/11/24 11:55:00 EDT, Dry Weight Start Date: 11/02/24 Status: Ordered Quantity: 90.0 Unit: tablet Repeat number: 1 amLODIPine 10 mg oral tablet = 10 mg, By Mouth, Daily in AM, 0 Refills, Maintenance, 04/10/15 3:56:28 PM EST, Tablet Start Date: 04/10/15 Status: Ordered Repeat number: 1 atorvastatin 40 mg oral tablet 1 tablet = 40 mg, By Mouth, Daily, pm, 0 Refills, Maintenance, 01/24/21 3:59:00 PM EDT, Partial fillupon patient request if the prescription is for a schedule II opioid drug. Start Date: 01/24/21 Status: Ordered Repeat number: 1 diclofenac 1% topical gel = 2 Gm, Topically, 4 times a day, # 56 Gm, 0 Refills, Maintenance, 08/15/24 11:35:00 AM EDT, Gel, [facility], Partial fill upon patient request if the prescription is for a schedule II opioid drug., 182, cm, 08/15/24 10:43:00 EDT, Height, 109.6, kg, 08/11/24 6:47:00 EDT, Dry Weight Start Date: 08/15/24 Stop Date: 08/22/24 Status: Ordered Quantity: 56.0 Unit: g Repeat number: 1 Eliquis 5 mg oral [...] Quantity: 30.0 Unit: tablet Repeat number: 1 [place]-3 oral capsule = 1 Gm, By Mouth, 2 times a day, 0 Refills, Maintenance, 01/17/19 7:42:35 AM EDT Start Date: 01/17/19 Status: Ordered Repeat number: 1 tiZANidine 2 mg oral tablet 2 mg, 1, tablet, By Mouth, Every 8 hours, PRN, not to exceed 3 doses/day please take as needed for muscle relaxation., # 90 tablet, Refills 0, Tot. Refills 0, Maintenance, as needed for muscle spasm,10/12/24 11:25:00 AM EDT, Route to Pharmacy Electronically, [id number], Partial fill uponpatient request if the prescription is for a schedule II opioid drug., 185, cm, 10/12/24 10:14:00 EDT, Height, 106.9, kg, 10/11/24 11:55:00 EDT, Dry Weight Start Date: 10/12/24 Status: Ordered Quantity: 90.0 Unit: tablet Repeat number: 1 Trelegy Ellipta 1 puff, [...] Quantity: 30.0 Unit: tablet Repeat number: 1 Vitamin D3 1000 intl units oral capsule 1 capsule = 25 mcg, By Mouth, Daily, # 100 capsule, 0 Refills, Maintenance, 07/27/24 12:11:00 PM EDT,Capsule, Partial fill upon patient request if the prescription is for a schedule II opioid drug. Start Date: 07/27/24 Status: Ordered Quantity: 100.0 Unit: capsule Repeat number: 1 Problem List Condition Confirmation Course Effective Dates Status H ealth Status Informant COPD (chronic obstructive pulmonary disease) Confirmed Active CAD in [place] artery Confirmed Active GERD (gastroesophageal reflux disease) [...] Event Display: Hemodynamic Procedure Report Authored Date: [id number] * Marium Mathur RN: PERFORM Event Display: Discharge/Transfer Note Hospital Authored Date: [id number] Nursing Discharge Note Entered On: 11/02/2024 15:08 EDT Performed On: 11/02/2024 15:08 EDT by Marium Mathur RN Nursing Discharge Note 2 Discharge Time : 11/02/2024 15:00 EDT Discharge Level of Care at Discharge : Home/Residential/Foster Care Patient Left Unit Via : Wheelchair Patient Accompanied Off Unit with : Responsible adult DC Instructions Provided & Signed by Pt : Yes Patient Understands D/C Instructions : Yes Patient Instructions Discharge Signed : Yes Did Pt have Specialty Bed or Wound Vac : No Marium Mathur RN - 11/02/2024 15:08 EDT * Marium Mathur RN: PERFORM Event Display: Patient Education/Instruction Authored Date: [id number] Inpatient Adult Discharge Instructions. [address] [address] Name: KAHLIL SIM : 1955?? Visit: 11/02/2024 06:18?? Current Date: 11/02/2024 14:30 ?? Account: [id number]?? Inpatient Adult Discharge Instructions We would like [...] and their families. Surveys are administered by [employer] ?? If further treatment with your primary care physician or another doctor is recommended, it is important for you to keep the appointment. Call your primary care physician or return to the Emergency Department immediately if your condition worsens, fails to improve, or new symptoms develop. If you need to find a doctor, you can call [facility] for a referral at [phone] or toll free at [phone] or log in to [email or web address].. ?? [facility], in keeping with [facility] guidance, no longer requires face masks for [...] a health care akua of your choosing. [employer] is a website that allows you to [...] upon your request. You can enroll at [email or web address] or register d uring your next office visit. You have been discharged from [facility], Patient Care Unit: CARE??. If you have any questions regarding these instructions, including results of studies pending, afteryou leave, please call us and we will be happy to assist you 12/10. [facility] Nursing Unit Direct Phone Number, for 12/10 contact and results of studies pending CARE [address] [place] [id number] Your Care Team Attending Physician Quinn Smyth MD?? Consulting Providers Quinn Smyth MD?? Discharging Providers Lolis Simpson MD Tests Performed Below is a partial list of the tests performed during your hospitalization. You may have had other tests and procedures not included in this list. Please discuss all test results with your provider. Type and Screen Type and Screen?? Primary Care Provider Kojo Fermin MD? Advance Directive Health Care Proxy on File Yes - Health Care Proxy Discharge Vitals Respiratory Rate: 18 br/min Systolic Blood Pressure: 134 mm Hg Diastolic Blood Pressure: 82 mm Hg Oxygen Saturation: 96 % Studies Pending All studies ordered during this hospital stay have been completed unless listed below. Please discuss all pending results with your provider listed above in these instructions. ?? No incomplete studies found?? What to do next Instructions From Your Doctor ?? Orders? 11/02/24 10:11:00 EDT?? Discharge Medications KAHLIL SIM :1955 Visit Date:11/02/2024 Medications: Please continue your medications until treatment is completed or stopped by your provider. Medications not listed below should be discontinued. Discuss any questions related to medications with your provider. What How Much When Instructions Next Dose New amiODARONE (amiodarone 200 mg oral tablet) See instructions Please take 2 tablets twice a day for 1 week. Then take 2 tablets once a day for 1 week. Then take 1 tablet daily. ?? Pickup at [facility] start tonight at 8pm Unchanged Albuterol (Albuterol (Eqv-ProAir HFA) 90 mcg/ inh inhalation aerosol) 2 inhalation Inhalation Every 6 hours as needed for as needed for shortness of breath or wheezing Resume Unchanged Allopurinol (allopurinol 100 mg oral tablet) 2 tab(s) Oral Daily Resume Unchanged Amlodipine (amLODIPine 10 mg oral tablet) 10 Milligram Oral Daily in the morning Resume Unchanged apixaban (Eliquis 5 mg oral tablet) 1 tab(s) Oral Twice a day Resume Unchanged Atorvastatin (atorvastatin 40 mg oral tablet) 1 tab(s) Oral Daily pm ?? Resume Unchanged Cholecalciferol (Vitamin D3 1000 intl units oral capsule) 1 capsule Oral Daily Resume Unchanged Cyanocobalamin (Vitamin B-12 1000 mcg oral tablet) 1 tab(s) Oral Daily Resume Unchanged Diclofenac Topical (diclofenac 1% topical gel) 2 gram Topically 4 times a day Duration: 7 Days Resume Unchanged Famotidine (famotidine 20 mg oral tablet) 40 Milligram Oral Daily at Bedtime Resume Unchanged Ferrous Sulfate (FeroSul 325 mg oral tablet) 1 tab(s) Oral Every other day Resume Unchanged fluticasone/ umeclidinium/ vilanterol (Trelegy Ellipta) 1 puff Inhalation Daily am ?? Resume Unchanged Gabapentin (gabapentin 600 mg oral tablet) 1 tab(s) Oral 3 times a day Resume Unchanged Magnesium Oxide (magnesium oxide 400 mg oral tablet) 1 tab(s) Oral Daily Resume Unchanged Multivitamin (multivitamin Lipotropic with Multivitamins oral tablet) 1 tab(s) Oral Daily Resume Unchanged [place]-3 Polyunsaturated Fatty Acids ([place]-3 oral capsule) 1 gram Oral Twice a day Resume Unchanged Tizanidine (tiZANidine 2 mg oral tablet) 1 tab(s) Oral Every 8 hours as needed for as needed for muscle spasm not to exceed 3 doses/ day please take as needed for muscle relaxation. ?? Resume Pharmacy Information [id number]: [address] [place] [id number] [phone] Prescription Given During Visit amiODARONE (amiodarone 200 mg oral tablet) - , # 90 tablet, 0 Refills, Please take 2 tablets twice a day for 1 week.Then take 2 tablets once a day for 1 week.Then take 1 tablet daily., [id number], [address] [place] [id number]?? Laboratory Results Below is a partial list of the most recent Laboratory test results done prior to this discharge. You may have had other tests and procedures not included in this list. Please discuss all test resultswith your provider. Type and Screen (11/02/2024) ???Blood Type - O Positive???Antibody Screen - Negative You will be contacted within 72 hours with your results. Allergies (NKA means No Known Allergies) NKA Problems Active Problems??(13) CAD in [place] artery?? Chronic gout?? COPD (chronic obstructive pulmonary disease)?? Failed back surgical syndrome?? GERD (gastroesophageal reflux disease)?? History of percutaneous coronary intervention?? Hypomagnesemia?? Lumbosacral radiculitis?? Moderate aortic stenosis?? Obese class I?? Paroxysmal atrial fibrillation?? Paroxysmal atrial flutter?? PVD (peripheral vascular disease) with claudication?? Education Materials Below is the list of Educational Leaflet Providered with your Discharge Instructions. [employer] Patient Education - Surgery Radial Cath Approach Discharge Instructions?? [employer] Patient Education - Procedural Sedation?? [employer] Patient Education - Discharge Instructions for Cardiac Catheterization?? Valuables and Belongings I fully understand and agree that [facility] accepts no responsibility for all my [...] encouraged to send valuables and belongings home. ? Other Discharge Information ? Pulmonary Rehab Status?? Pulmonary Rehab Discharge Status?? Respiratory Rate: 18 br/min ? Common Emergency Awareness Tips IS [...] are strongly encouraged to quit. Please call [facility] at [phone] or [phone] ([phone]) or log in to [email or web address] for referrals to smoking cessation programs. ?? 907 Suicide & Crisis Lifeline is available 12/10 if you or someone you know needs to find a reason to keep living. By calling 663 you'll be connected to a skilled, trained counselor at a crisis center in your area. INPATIENT DISCHARGE INSTRUCTIONS SIGNATURE PAGE KAHLIL SIM Location:[facility] Registration Date and Time:11/02/2024 06:18 EDT Primary Care Physician: Kojo Fermin MD, Attending Physician: Quinn Smyth MD, I CHIQUIS KAHLIL, have received the above patient education materials/instructions and have verbalized understanding. If ambulance or transport services are being used I further acknowledge being given a choice of service. ?? If you need to contact me, please call me at this number: . Patient/Ed Manager Name: Patient/Ed Manager Signature: Relationship to Patient: Witness Name/Signature: Date: * Marium Mathur RN: PERFORM Event Display: Patient Education Leaflets Authored Date: [id number] Surgery Radial Cath Approach Discharge Instructions ?? 278 Radial Cath Approach Discharge Instructions ?? Activity Take it easy the rest of the day. Limit your activity on the affected side.?? Act as if your arm is broken for 24 hours. No lifting with affected arm for 24 hours. No pushing or pulling with the affected arm. Do not reach or lift with the affected arm. Do not place excessive pressure on the wrist. ?? Precautions Due to intravenous sedation: It is recommended that someone stay with you for the first night after your procedure. Do not drive or operate hazardous machinery for 24 hours. Do not make legal decisions for 24 hours. Avoid alcohol for 24 hours. Unless directed otherwise, keep yourself hydrated. ?? Dressing/Incision Care You may remove the dressing 24 hours after your procedure. Replace with band aid for an additional 24 hours. You may shower and cleanse the site with soap & water then pat dry. Avoid submersion of site in water x 5 days. Cover the with a clean band aid daily until site is healed. If the band aid becomes soiled, replacewith a clean new one. Do not apply any ointments, lotions, gels or powders to the puncture site. ?? When to contact your doctor If any of the following signs of infection occur: Fever greater than 100 degrees F Increased pain Drainage, redness or warmth at puncture site Tingling of the fingers and hand that last longer than 3 days Slight bubble of blood or bleeding from site: apply manual pressure and notify your doctor ?? Emergency situations: Bleeding from the site that will not stop: apply manual pressure and notify your doctor Profuse bleeding streaming from the puncture site: Apply manual pressure and notify your doctor immediately If your hand becomes bluish, cold to the touch, or painful, notify your doctor immediately or go toEmergency Department. For these emergent situations: If unable to contact your physician, call 911. ?? * Marium Mathur RN: PERFORM Event Display: Patient Education Leaflets Authored Date: [id number] Procedural Sedation ?? [address] Procedural Sedation Procedural sedation is medicine to ease discomfort, pain, and anxiety during a procedure. The medicine is often given through an IV (intravenous) line in your arm or hand. In some cases, the medicinemay be taken by mouth or inhaled. While you are under sedation, you will likely be awake. But you may not remember it afterward. Why procedural sedation is used Sedation is used for many types of procedures. The goal is to reduce pain, anxiety, and stressful memories of a procedure. It can help your doctor treat you. For example, having a broken bone fixed may be easier if you feel relaxed. This type of sedation is used only for short, basic procedures. It's not used for complex surgery. Some procedures that use this type of sedation include: ??? Dental surgery. ??? Breast biopsy to take a sample of breast tissue. ??? Endoscopy to look at gastrointestinal problems. ??? Bronchoscopy tocheck for lung problems. ??? Bone or joint realignment to fix a broken bone or dislocated joint. ??? Minor foot or skin surgery. ??? Electrical cardioversion to restore a normal heart rhythm. ??? Lumbar puncture to check for neurological disease. ?? Risks of procedural sedation Risks and possible side effects include: ??? Headache. ??? Nausea and vomiting. ??? Bad memories of the procedure. ??? Slowed breathing. ???Changes in heart rate and blood pressure (rare). ??? Inhaling of stomach contents into your lungs (rare) Side effects will likely go away shortly after the procedure. Your health care team will watch yourheart rate and breathing during and after sedation. This is to help prevent problems. Your own risks may vary. They can be based on your age and your overall health. They also depend onthe type of sedation you get. Talk with your doctor about the risks that apply most to you. ?? Getting ready for procedural sedation Talk with your doctor about how to get ready for your procedure. Tell them about all the medicines you take. This includes lwye-eps-bjfsaht medicines, such as ibuprofen. It also includes vitamins, herbs, and other supplements. You may need to stop taking some medicines beforehand, such as blood thinners and aspirin. If you smoke, you should stop. This is to reduce the chance of a lung problem. Talk with your doctor if you need help to stop smoking. Tell your doctor if you: ??? Have had any problems in the past with sedation or anesthesia. ??? Have had any recent changes in your health, such as an infection or fever. ??? Are or think you could be. Also: ??? Follow any directions you are given for not eating or drinking before procedure. ??? Ask a trusted adult to take you home after the procedure. You can???t drive on the day you have sedation. ??? Ask a trusted adult to stay with you for a few hours while you recover. ??? Don't make any important decisions, such as financial or legal, on the day after you have sedation. ??? Follow all other instructions from your doctor. ?? During your procedural sedation You may have your procedure in a hospital or a clinic. Sedation is done by a trained health care provider. In general, you can expect the following: ??? You will be given medicine through an IV line in your arm or hand. Or you may get a shot or take it by mouth. Or you may inhale it through a mask.??? If you have medicine through an IV, you may feel the effects very quickly. You will start to feel relaxed and drowsy. ??? During the procedure, your heart rate, breathing, and blood pressure willbe closely watched. Your breathing and blood pressure may decrease a little. But you will likely not need help with your breathing. You may get a little extra oxygen. This is done through a mask or some soft plastic prongs under your nose. ??? You will likely be awake the whole time. If you do fallasleep, you should be easy to wake up, if needed. You should feel little or no pain. ??? When your procedure is over, the sedative medicine will be stopped. ?? After your procedural sedation You will start to feel more awake and aware. But you will likely be drowsy for a while afterward. You will be closely watched as you become more alert. You may have a faint memory of the procedure. Or you may not remember it at all. You should be able to go home within 1 to 2 hours after your procedure. Plan to have a trusted adult stay with you for a few hours. This person should make sure your condition is not getting worse. They should also watch for problems, and keep you safe. You may have side effects, such as nausea, fatigue, or unsteadiness for up to 24 hours. You may also feel lightheaded. Tell your doctor if they continue. Don???t drive or operate machines during the next 24 hours. Also, don't make any important businessor personal decisions. And don't drink any alcohol during the next 24 hours. Take extra care when walking and moving, You may be at a higher risk of falling. Follow any instructions you were given for eating and drinking. Be sure to follow all after-care directions. ?? When to contact your doctor Have someone call your doctor right away if any of the following occur: ??? Drowsiness that gets worse ??? Weakness or dizziness that gets worse ??? Repeated vomiting ??? Your speech is slurred, and others cannot understand you ??? Severe or ongoing pain from the procedure, not relieved by the painmedicine (if prescribed) ??? Fever of 100.4?? F (38??C) or higher, or as advised by your doctor ???New rash ?? Call 911 Have someone call 911 if any of the following occur: ??? Trouble breathing ??? Trouble swallowing ??? Chest pain ??? Loss of consciousness or you can't be woken up ?? Last Reviewed Date: 2024 00:00:00 ?? The [employer]. All rights reserved. This information is not intended as a substitute for professional medical care. Always follow your healthcare professional's instructions. ?? * Marium Mathur RN: PERFORM Event Display: Patient Education Leaflets Authored Date: [id number] Discharge Instructions for Cardiac Catheterization ?? [address] Discharge Instructions for Cardiac Catheterization Cardiac catheterization??is an invasive??procedure??to look for certain heart problems. These problems may affect the heart's chambers, valves, and blood vessels. A thin, flexible tube (catheter) is put in a blood vessel in your groin or arm. The catheter is moved to the heart. The health care provider can look at the blood flow, blood pressure, and oxygen. They can inject contrast fluid??into your blood. This flows to your heart.??The provider can then take X-rays pictures??of your heart. Coronary angiography is often done as part of a cardiac cath. This looks for blocked areas in the arteries that send blood to the heart. If a blockage is found, your provider may try to open up the artery. They may put a stent in place. Your provider will talk with you about the results of your procedure . Ask any questions you have before you leave. This sheet will help you take care of yourselfat home. Home care ??? Have a responsible adult drive you home after your procedure. ??? Don't drive or makeany important decisions for at least 24 hours after getting any type of sedation or anesthesia.? Drink?? 6 to 8??glasses of water over the next 24 hours. This is to help flush the contrast dye out of your body. Call your health care team if your urine has any change in color. ??? Take your temp erature every day for 3 to 5 days. If you feel cold and clammy or start sweating, take your temperature right away. Call your health care team. ??? Do only light and easy activities for??the next?? 2to 3??days. Ask for help with chores and errands while you recover. Have someone drive you to your [facility]. ??? Don't lift anything heavy??until your health care team says it's safe. ??? Ask your health care team when you can expect to return to work. Unless your job involves lifting, you may be able to return to your normal activities within 2 days. ??? Take your medicines as directed. Don't skip doses. ??? Check your incisions every day for signs of infection. These include redness, swelling, and fluid leaking. It's normal to have a small bruise or bump where the catheter was put in. Abruise that's getting larger is not normal. Tell your health care team about this. Call your team if you see blood forming in the incision. Go to the emergency room if you have uncontrolled bleeding from the artery site. This is even more important if you take medicines that make it hard for your blood to clot. These include aspirin, clopidogrel, prasugrel, and brilinta. ??? Eat a healthy diet. Make sure it's low in fat, salt, and cholesterol. Ask your health care team for diet information. ???Stop smoking. Sign up for a quit-smoking program. Or ask your health care team for help. ??? Exercise as your health care team tells you to. Your team??may advise you to start a cardiac rehab program. Cardiac rehab is an exercise program where trained health care staff watch your progress and stress on your heart while you exercise. Ask your team how to enroll. ??? Don't swim or take baths until your health care team says it???s OK. You can shower the day after the procedure. Keep the site clean and dry. This keeps the incision from getting wet and infected until the skin and artery can heal.??? Follow all other after-care instructions from your team.? Follow-up care ??? Make a follow-up appointment as advised. It's common to have a follow-up appointment 2 to 4 weeks after an angioplasty or coronary stent procedure. ??? Make a yearly appointment. This is??to make sure you're still doing well and not having any new symptoms. ??? Don't wait for a follow-up appointment if your medicines aren't working or you're having heart-related symptoms. Call your provider. ?? When to contact your doctor Contact your provider right away if: ??? You have severe or increasing pain, numbness, coldness, ora bluish color in the leg or arm that held the catheter. ??? You have a fever of 100.4?? F??( 38??C) or higher, or as advised by your provider. ??? There are signs of infection at the incision site. These include redness, swelling, drainage, or warmth. ??? There is bleeding, bruising, or a lot of??swelling where the catheter was inserted. ??? You have blood in your urine. ??? Your stools are black or tarry. ??? You have any unusual bleeding. ??? Your heartbeat is irregular, very slow, or fast. ??? You are dizzy. ?? Call 911 Call 911 if: ??? You have chest pain. ??? You are short of breath. ??? You feel sudden numbness or weakness in arms, legs, or face, or have trouble speaking. ??? The puncture site swells up very fast. ??? You have bleeding from the puncture site that doesn't slow down with firm pressure. ?? Last Reviewed Date: 2024 00:00:00 ?? [id number] The [employer]. All rights reserved. This information is not intended as a substitute for professional medical care. Always follow your healthcare professional's instructions. ?? * Event Display: History and Physical, Non-BH Authored Date: * Event Display: Lab Data & Pts Medical History Authored Date: EKG study * Event Display: ECG 12-Lead Authored Date: Please click on pdf link to open report * Event Display: ECG 12-Lead Authored Date: Ventricular Rate: 74 BPM Atrial Rate: 93 BPM QRS Duration: 120 ms Q-T Interval: 432 ms QTC Calculation(Bazett): 479 ms R [place]: -70 degrees T [place]: 99 degrees Atrial flutter Ventricular-paced rhythm Abnormal ECG When compared with ECG of 12-Oct-2024 00:18, No significant change Confirmed by KAMRON PALACIOS ([id number]) on 11/03/2024 7:55:05 AM [place]: KAMRON PALACIOS Cardiology * Event Display: Cardiac Device Reports Authored Date: Patient Care team information Care Team Personnel Name: Kojo Fermin MD Position: [facility] Outreach Member Role: PCP Address: [address] [place] [address] Internal Medicine [place], [place] [address] Telecom: Name: Jerri Jernigan RN Position: [facility] RN Member Role: Primary Care Nurse Name: Geno Duggan RN Position: S RN Member Role: Primary Care Nurse Name: Maritza Box RN Position: [facility] RN Member Role: Primary Care Nurse Name: Reshma Clarke RN Position: [facility] SN RN Member Role: Primary Care Nurse Name: Ana Maria Duncan Position: [facility] Outreach Member Role: Lifetime Consulting Physician Name: Suellen Astudillo RN Position: S RN Member Role: Primary Care Nurse Name: Carl Banks RN Position: [facility] RN Member Role: Primary Care Nurse Name: Liza Lee RN Position: S RN Member Role: Primary Care Nurse Name: Jeny Araiza RN Position: S RN Member Role: Primary Care Nurse Name: Krystal Pugh RN Position: [facility] RN Member Role: Primary Care Nurse Care Team Related Persons Name: CINTHYA PRABHAKAR Name: REEMA SIM Insurance Providers Guarantor name: KAHLIL SIM Health Plan Information #: 1 Payer: [employer] PPO Payer Identifier: NA Member Number: [id number] Group Number: [id number] Subscriber Identifier: [id number] Relationship to Subscriber: self Coverage Type: Medicare PPO Coverage Verification Date: Telecom: NA Address: [facility] Information #: 2 Payer: [employer] CUSTOMER SERVICE Payer Identifier: NA Member Number: [id number] Group Number: Subscriber Identifier: [id number] Relationship to Subscriber: self Coverage Type: MEDICAID Coverage Verification Date: NA Telecom: NA Address: NA
--- NOTE | ~2024-11-06 | CT_ITS ---
CLINICAL HISTORY: Z87.01 - Personal history of pneumonia (recurrent) CT chest without contrast Comparison: None provided Findings: Bilateral pleural effusions, larger on left. Left lower lobe subsegmental atelectasis. No significant mediastinal adenopathy. Dense coronary artery calcifications. No acute bony abnormality. Left pacemaker leads in right heart. Scattered hepatic cysts of variable size. Impression: Bilateral pleural effusions, larger on left Left lower lobe subsegmental atelectasis This document has been electronically signed by: Daryl Wong MD on 11/07/2024 21:46:24
--- OUTSIDE RECORDS SUMMARY | 2024-11-06 16:22 | XMS_ITS | Clinical Summary ---
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 Patient is a former smoker with a 88-teix-tozz history. He states during ambulation he has to take very frequent breaks due to feeling winded . He continues to have some discomfort along his surgical incisional sites however he states that it is manageable. While patient was in office reviewed his most recent chest CT scan which was performed at [facility] on July 31, 2021 and shows [...] COMMENT: Benign thyroid nodule COLONOSCOPY 06/05/08 PROCEDURE: MD COLONOSCOPY STOMA DX INCLUDING COLLJ SPEC SPX; COMMENT: Up to cecum, ascending polyp removed:Adenomatous, Hepatic flexure polyp removed:TA, Sigmoid polyp removed:Hyperplastic. NOT removed 1 polyp at asceding and 2 polyps at transverse OTHER SURGICAL HISTORY PROCEDURE: MD RADIAL KERATOTOMY; COMMENT: left eye Medical History [...] Test (05/07/2023) Annual BMP Blood Test abstracted [facility] Provider HEALTH MAINTENANCE Final Result * [...] Aortic Aneurysm Screen (08/02/2008) Pathologist [facility] Abdominal Aortic Aneurysm (AAA) Screening abstracted Anatomical Region Laterality Modality Other Historical Provider HEALTH MAINTENANCE Final Result from Last 3 Months or Most Recently Relevant to Health Maintenance Insurance [place] Advance Directives Documents on File Type Date Recorded Patient Media Law Faculty Member Expl anation Health Care Decision (hx) 06/20/2021 AD HURTADO DIRECTIVE Health Care Decision (hx) 06/20/2021 AD HURTADO DIRECTIVE Health Care Decision (hx) 06/20/2021 AD HURTADO DIRECTIVE Health Care Decision (hx) 06/20/2021 AD HRUTADO DIRECTIVE Health Care Decision (hx) 06/20/2021 AD [...] 06/18/2021 AD HURTADO DIRECTIVE Care Teams Manager Treasury Relationship Specialty Start Date End Date Kojo Fermin MD [address] [place] [address] PCP - General Internal Medicine 03/27/21
== END 2024-11-06 16:21 | disposition home or self-care (01) ==
LOC: HO.CT 16:20
PROVIDERS: PCP Internal Medicine; Visit Provider Nurse Practitioner Family
DX: Z87.01 Personal history of pneumonia (recurrent) (principal); J90 Pleural effusion, not elsewhere classified
CPT/HCPCS: 71250

== ENCOUNTER → 2024-11-06 16:22 | Outpatient (BNV) | payer MEDICARE, MEDICAID, SELFPAY | PROVIDERS: PCP Internal Medicine; Visit Provider Radiology Diagnostic Radiology | DX: J90 Pleural effusion, not elsewhere classified (principal); J98.11 Atelectasis | CPT/HCPCS: 71250 ==

== ENCOUNTER 2024-11-13 08:53 | Outpatient (AMB) | payer MEDICARE, MEDICAID, SELFPAY ==
--- NOTE | 2024-11-13 09:07 | MHC.OFFVIS ---
Vital Signs 11/13/24 09:08 Height 6 ft Weight 232 lb 9.403 oz BMI 31.5 BP 124/66 Blood Pressure Location Lt brachial Position Sitting Pulse 87 Pulse Source Pulse Oximeter Pulse Oximetry (%) 97 Oxygen Delivery Method Room Air Intake Visit Reasons: COPD Allergies No Known Allergies (No Known Allergies*) Allergy (Verified 11/14/24 07:33) HPI HPI COPD: Details: Shane is pleasant 69 year old, former 40 pack year smoker, quit 15 years ago with underlying COPD, HTN, atrial fibrillation s/p ablation on Eliquis, peripheral vascular disease, SVT, CHF, hyperlipidemia,CAD s/p RCA stent, h/o [place], severe XAVIER could not tolerate CPAP, s/p resection of RUL pulmonary nodule 06/2021, negative for malignancy with recurrent pleural effusions s/p thoracentesis. He reports moderate with Trelegy using DuoNeb 2-3 times per day. PFT 2022 revealed mild COPD. He continues with worsening dyspnea on exertion over the last few weeks, intermittent wheezing and occasional productive cough with clear to white sputum. He also reports ongoing BLE edema, denies orthopnea. He reports upcoming evaluation for Inspire device as previously could not tolerate XAVIER. Today he presents to review chest CT report. Of note, patient with severe aortic stenosis recently underwent cardiac cath. He reports prior public health administrator discussed valve replacement which he is interested in however current public health administrator reportedly does not feel he is a candidate at this time. [facility] Medical History (Updated 11/14/24 @ 17:09 by Mis Stephens NP) Atrial fibrillation Paroxysmal atrial fibrillation Atrial flutter CAD (coronary artery disease) Junctional bradycardia COVID-19 Blindness of left eye History of eye prosthesis Thyroid disease GERD (gastroesophageal reflux disease) Numbness On beta patrick at home On anticoagulant therapy Murmur PVD (peripheral vascular disease) Myocardial infarction Alcohol dependence Post laminectomy syndrome Asthma Renal stones COPD (chronic obstructive pulmonary disease) Anemia Hepatitis C Hyperlipidemia HTN (hypertension) SVT (supraventricular tachycardia) Surgical History Hx of eye surgery History of esophagogastroduodenoscopy (EGD) H/O colonoscopy S/P lobectomy of lung (~05/2021) Stented coronary artery Hx of thyroidectomy History of back surgery Hx of cardiac cath Family History Father Cancer Mother CVD (cardiovascular disease) Social History Household Members: None Housing: Apartment Are you a primary client care coordinator to a significant other at home: No Do you presently have visiting nurse or other home services: No Alcohol intake: current Alcohol intake frequency: 0-2 drinks per day Alcohol type: hard liquor Patient Tobacco Use Status: Former Tobacco user Tobacco use type: Cigarette Cigarette Packs Per Day: 1 Cigarettes Per Day: 20.0 Years Smoked: 40/ Stopped at age 54 Second Hand Smoke Exposure: No Substance Use Type: Marijuana Advance Directives Date on File: 09/09/23 service: No Review of Systems Const Denies chills, Denies excessive sweating, Denies fever(s), Denies headache(s) and Denies night sweats Eyes Denies dry eyes, Denies irritation and Denies itchy eyes ENT Reports Normal hearing present, Denies headache(s), Denies nasal congestion, Denies nasal discharge, Denies post nasal drip and Denies sore throat Card Denies chest pain, Denies chest pain at rest, Denies chest pain with activity, Denies claudication, Reports dyspnea on exertion, Denies orthopnea and Denies paroxysmal nocturnal dyspnea Resp Denies chest congestion, Reports cough, Denies hemoptysis, Denies excessive phlegm production, Denies pain on inspiration, Denies pain with cough, Reports dyspnea on exertion and Denies stridor Musc Denies myalgias Neuro Reports Normal hearing present and Denies headache(s) Endo Denies excessive sweating Torin/Lymph Denies lymphadenopathy Aller/Immun Denies itchy eyes and Denies seasonal rhinorrhea Physical Exam Vital Signs: Last Vital Signs Pulse 87 11/13/24 09:08 BP 124/66 11/13/24 09:08 Pulse Ox 97 11/13/24 09:08 Oxygen Delivery Method Room Air 11/13/24 09:08 BMI result Body Mass Index 31.5 Const General: cooperative, healthy appearing, comfortable, no acute distress, well developed and alert Nutritional Appearance: obese Orientation/consciousness: patient oriented x3 Limitations: no limitations HEENT Head: Yes normal to inspection, Yes normocephalic and Yes atraumatic Ears: hearing grossly normal bilaterally and external ears normal Eyes Sclerae: sclerae normal Neck Neck: Yes normal visual inspection and Yes no lymphadenopathy Lymphatic: no lymphadenopathy noted Chest Chest palpation & inspection: normal inspection of the chest Resp Other: diminished aeration of LLL Effort & Inspection: normal respiratory effort, able to speak in complete sentences, no audible wheezes, no cough, no stridor, not tachypneic, no tripod positioning and no use of accessory muscles Cardio Jugular venous distension: no JVD Rate: regular rate Rhythm: regular rhythm Heart sounds: Murmur heart sound present Skin Other: warm, dry General skin exam: no rashes or lesions noted Neuro General: patient oriented x3 Cranial nerves: Yes Normal hearing present Cognition (Neuro): normal cognition Gait exam (Neuro): Normal gait present Extrem General: Yes normal to inspection, Yes capillary refill normal, Yes no clubbing, cyanosis or edema and Yes no pedal edema Psych Appearance: grossly normal and well kempt Speech and movement: Normal speech and movement present and Clear speech present Affect: normal affect Attitude: cooperative Thought process: Normal thought process present Thought content: Normal thought content present Insight: Good insight present (Psych) Judgement: Good judgement present (Psych) Results Reviewed Results Reviewed: [address] [address] [address] Scan Report Signed Patient: Shane Nichole MR#: [id number] : 1955 Acct:[id number] Age/Sex: 69 / M ADM Date: 11/06/24 Loc: HO.CT Attending Dr: Mis Stephens NP Ordering Physician: Mis Stephens NP Date of Service: 11/06/24 Procedure(s): CT chest wo IV con Accession Number(s): [id number] cc: Kojo Fermin MD; Mis Stephens NP~ Report Number: [id number]: Total DLP = 216.00 mGy-cm CLINICAL HISTORY: Z87.01 - Personal history of pneumonia (recurrent) CT chest without contrast Comparison: None provided Findings: Bilateral pleural effusions, larger on left. Left lower lobe subsegmental atelectasis. No significant mediastinal adenopathy. Dense coronary artery calcifications. No acute bony abnormality. Left pacemaker leads in right heart. Scattered hepatic cysts of variable size. Impression: Bilateral pleural effusions, larger on left Left lower lobe subsegmental atelectasis This document has been electronically signed by: Daryl Wong MD on 11/07/2024 21:46:24 Dictated By: Daryl Wong MD Signed By: <Electronically signed by Daryl Wong MD in OV> 11/07/242145 DD/ 45 TD/TT: 11/07/242145 Vehicle Service Attendant: Assessment & Plan Assessment & Plan (1) COPD (chronic obstructive pulmonary disease): Code(s): J44.9 - Chronic obstructive pulmonary disease, unspecified Category: Medical (2) Obstructive sleep apnea: Code(s): G47.33 - Obstructive sleep apnea (adult) (pediatric) Category: Medical (3) Personal history of tobacco use: Code(s): Z87.891 - Personal history of nicotine dependence Category: Social Hx (4) Nocturnal hypoxemia: Code(s): G47.34 - Idiopathic sleep related nonobstructive alveolar hypoventilation Category: Medical (5) Pleural effusion, left: Code(s): J90 - Pleural effusion, not elsewhere classified Category: Medical Plan Shane reports worsening dyspnea on exertion, CT chest revealed left pleural effusion. He reports prior h/o pleural effusions requiring thoracentesis after RUL wedge resection? in 2021 in the past and has not had recurrence since. Will send for thoracentesis as well as pleural fluid analysis. He is aware to seek emergent care if symptoms worsen. May be related to underlying cardiac etiologies and severe aortic stenosis. He is requesting a referral to [facility] cardiology, will enter. He also has severe XAVIER and has upcoming appt with ENT to evaluate for Inspire device, as he could not previously tolerate CPAP/BiPAP therapy. All questions were answered and patient is in agreement of plan. Will follow up in 4 weeks or sooner if needed. Orders: Orders Amylase Pleural Fluid Today J90 - Pleural effusion, not elsewhere classified Cell Count w Diff Pleural Fld Today J90 - Pleural effusion, not elsewhere classified Total Protein Pleural Fluid Today J90 - Pleural effusion, not elsewhere classified IR Drain Thoracentesis Today J90 - Pleural effusion, not elsewhere classified Albumin Pleural Fluid Today J90 - Pleural effusion, not elsewhere classified Glucose Pleural Fluid Today J90 - Pleural effusion, not elsewhere classified LDH Pleural Fluid Today J90 - Pleural effusion, not elsewhere classified pH Pleural Fluid Today J90 - Pleural effusion, not elsewhere classified Referrals Cardiology Referral I35.0 - Nonrheumatic aortic (valve) stenosis Coding Level of Care Code Est Pt Level 4 (32063) Complex EM visit Add On G2211 Diagnoses COPD (chronic obstructive pulmonary disease) J44.9 Obstructive sleep apnea G47.33 Personal history of tobacco use Z87.891 Nocturnal hypoxemia G47.34 Pleural effusion, left J90
[2024-11-13 09:08] VITALS: BP 124/66; PULSE 87; O2SAT 97; BMI 31.5
--- OUTSIDE RECORDS SUMMARY | 2024-11-13 09:29 | XMS_ITS | Clinical Summary ---
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 Patient is a former smoker with a 64-[id number]-nrai history. He states during ambulation he has to take very frequent breaks due to feeling winded . He continues to have some discomfort along his surgical incisional sites however he states that it is manageable. While patient was in office reviewed his most recent chest CT scan which was performed at [facility] on July 31, 2021 and [...] COMMENT: Benign thyroid nodule COLONOSCOPY 06/05/08 PROCEDURE: HI COLONOSCOPY STOMA DX INCLUDING COLLJ SPEC SPX; COMMENT: Up to cecum, ascending polyp removed:Adenomatous, Hepatic flexure polyp removed:TA, Sigmoid polyp removed:Hyperplastic. NOT removed 1 polyp at asceding and 2 polyps at transverse OTHER SURGICAL HISTORY PROCEDURE: [place] RADIAL KERATOTOMY; COMMENT: left eye Medical History [...] Test (05/07/2023) Annual BMP Blood Test abstracted [facility] Provider HEALTH MAINTENANCE Final Result * Lipid panel (01/14/2023) Pathologist [facility] LDL/HDL Ratio 0 0 - 0 Triglycerides 0 0 - 0 mg/dL Cholesterol 0 0 - 0 mg/dL HDL 0 0 - 0 mg/dL LDL Cholesterol 0 0 - 0 mg/dL Blood Venous blood specimen / Unknown Historical Provider LAB BLOOD ORDERABLES Terese l Result * Abdominal Aortic Aneurysm Screen (08/02/2008) Pathologist [facility] Abdominal Aortic Aneurysm (AAA) Screening abstracted Anatomical Region Laterality Modality Other Historical Provider HEALTH MAINTENANCE Final Result from Last 3 Months or Most Recently Relevant to Health Maintenance Insurance [place] Advance Directives Documents on File Type Date Recorded Patient Controlled Area Checker Expl anation Health Care Decision (hx) 06/20/2021 AD HURTADO DIRECTIVE Health Care Decision (hx) 06/20/2021 AD HURTADO DIRECTIVE Health Care Decision (hx) 06/20/2021 AD HURATDO DIRECTIVE Health Care Decision (hx) 06/20/2021 AD [...] (hx) 06/18/2021 AD HURTADO DIRECTIVE Care Teams Ssds Mk 2 Advanced Operator Relationship Specialty Start Date End Date Kojo Fermin MD [address] [place] [address] PCP - General Internal Medicine 03/27/21
== END 2024-11-13 09:46 | disposition home or self-care (01) ==
LOC: HO.HPS 08:54
PROVIDERS: PCP Internal Medicine; Visit Provider Nurse Practitioner Family
DX: J44.9 Chronic obstructive pulmonary disease, unspecified (principal); G47.33 Obstructive sleep apnea (adult) (pediatric); Z87.891 Personal history of nicotine dependence; G47.34 Idiopathic sleep related nonobstructive alveolar hypoventilation; J90 Pleural effusion, not elsewhere classified
CPT/HCPCS: 99214; G2211

== ENCOUNTER → 2024-11-13 08:53 | Outpatient (BNVA) | payer MEDICARE, MEDICAID, SELFPAY | PROVIDERS: PCP Internal Medicine; Visit Provider Nurse Practitioner Family | DX: J44.9 Chronic obstructive pulmonary disease, unspecified (principal); G47.33 Obstructive sleep apnea (adult) (pediatric); G47.34 Idiopathic sleep related nonobstructive alveolar hypoventilation; J90 Pleural effusion, not elsewhere classified; Z87.891 Personal history of nicotine dependence | CPT/HCPCS: 99212 ==

== ENCOUNTER 2024-11-14 07:24 | Emergency (ER) | payer MEDICARE, MEDICAID, SELFPAY ==
--- NOTE | ~2024-11-14 | XR_ITS ---
EXAMINATION: XR WRIST 3 OR MORE VIEWS RIGHT HISTORY: pain hx of gout COMPARISON: Comparison is made with the prior examination dated 11/05/2023. FINDINGS: Four views of the right wrist including a scaphoid view are submitted. Osseous mineralization is normal. There is no fracture or dislocation. There is mild degenerative change of the 1st carpometacarpal joint and moderate osteoarthritis of the interphalangeal joint of the thumb. There are vascular calcifications. 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 Electronically signed by: Kenny Peter MD 11/14/2024 08:57 AM EDT
[2024-11-14 07:31] VITALS: BP 146/74; PULSE 84; RESP 18; TEMP 36.6; O2SAT 97; BMI 32.5
--- OUTSIDE RECORDS SUMMARY | 2024-11-14 07:50 | XMS_ITS | Clinical Summary ---
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 Patient is a former smoker with a 78-mave-nvjp history. He states during ambulation he has to take very frequent breaks due to feeling winded . He continues to have some discomfort along his surgical incisional sites however he states that it is manageable. While patient was in office reviewed his most recent chest CT scan which was performed at [facility] on July 31, 2021 and [...] COMMENT: Benign thyroid nodule COLONOSCOPY 06/05/08 PROCEDURE: [place] COLONOSCOPY STOMA DX INCLUDING COLLJ SPEC SPX; COMMENT: Up to cecum, ascending polyp removed:Adenomatous, Hepatic flexure polyp removed:TA, Sigmoid polyp removed:Hyperplastic. NOT removed 1 polyp at asceding and 2 polyps at transverse OTHER SURGICAL HISTORY PROCEDURE: FL RADIAL KERATOTOMY; COMMENT: left eye Medical History [...] Test (05/07/2023) Annual BMP Blood Test abstracted [facility] Provider HEALTH MAINTENANCE Final Result * Lipid [...] * Abdominal Aortic Aneurysm Screen (08/02/2008) Pathologist [facility] Abdominal Aortic Aneurysm (AAA) Screening abstracted Anatomical Region Laterality Modality Other Historical Provider HEALTH MAINTENANCE Final Result from Last 3 Months or Most Recently Relevant to Health Maintenance Insurance [place] Advance Directives Documents on File Type Date Recorded 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
--- NOTE | 2024-11-14 08:04 | ED.EXTPRO ---
HPI - Extremity Problem General Chief complaint: Extremity Problem Stated complaint: R wrist pain/tingling no injury Time Seen by Provider: 11/14/24 08:02 Source: patient and RN notes reviewed Mode of arrival: ambulatory Limitations: no limitations History of Present Illness ED Provider: Svitlana Pisano PA-C HPI Narrative: This is a 69-year-old male, with a past medical history of junctional bradycardia, DC, AFib on Eliquis, asthma, COPD, hypertension, gout, and CAD who presents emergency department with concerns of right wrist, right hand, and right finger pain for the last 4-5 days. Patient states that initially had some tingling into his right 1st 2nd and 3rd digits, he states that the pain has since worsened, in his now primarily in his right wrist. He states that he has had significant decreased range of motion of his digit and wrist secondary to the pain. He has been taking Tylenol which has provided him without any relief. Patient states that he has a history of gout and states that his symptoms are somewhat atypical of his gout flare-ups. He states that his gout typically is in his right wrist, he states that he has never had involvement into his fingers. Last took Tylenol this morning. He denies any fevers, chills, injury to his right hand, wrist or fingers, chest pain. He is right-hand dominant. He previously saw Neurology who gave him a shot of cortisone in his wrist several years ago, denies ever seeing Orthopedics for this. No other complaints or concerns at this time. MD Complaint: extremity pain, extremity swelling and joint pain Onset (ago): day(s) Location: right and upper extremity Quality: aching Radiation: proximal and distal Relieving factors: nothing Exacerbating factors: range of motion and palpation Associated symptoms: denies other symptoms Related Data Home Medications ?Medication ?Instructions ?Recorded ?Confirmed famotidine 40 mg tablet 40 mg PO BID 04/12/20 10/03/24 gabapentin 600 mg tablet 600 mg PO BID 04/12/20 10/03/24 albuterol sulfate 90 mcg/actuation 2 puff inhalation QID PRN 10/26/22 10/03/24 aerosol inhaler Shortness Of Breath Or Wheezing cholecalciferol (vitamin D3) 25 25 mcg PO DAILY 05/19/23 10/03/24 mcg (1,000 unit) capsule (Vitamin D3) cyanocobalamin (vitamin B-12) 500 500 mcg PO DAILY 05/19/23 10/03/24 mcg tablet (Vitamin B-12) fluticasone fur. 200 mcg-umeclid 1 ea inhalation DAILY 05/19/23 10/03/24 62.5 mcg-vilant 25 mcg inhalat.powder (Trelegy Ellipta) magnesium oxide 400 mg (241.3 mg 400 mg PO BIDWM 09/14/23 10/03/24 magnesium) tablet allopurinol 100 mg tablet 100 mg PO DAILY 05/04/24 10/03/24 colchicine 0.6 mg tablet 0.6 mg PO BID PRN 07/17/24 10/03/24 ferrous sulfate 325 mg (65 mg 325 mg PO Q OTHER DAY 10/02/24 10/03/24 iron) tablet (FeroSul) Previous Rx's ?Medication ?Instructions ?Recorded acetaminophen 325 mg capsule 650 mg (2 x 325 mg) PO Q6H PRN 11/05/23 pain #30 caps atorvastatin 40 mg tablet 40 mg PO DAILY #90 tabs 02/03/24 amlodipine 10 mg tablet 10 mg PO DAILY #90 tabs 05/05/24 apixaban 5 mg tablet (Eliquis) 5 mg PO BID #60 tabs 06/12/24 ipratropium 0.5 mg-albuterol 3 mg 3 ml inhalation TID PRN Shortness 06/19/24 (2.5 mg base)/3 mL nebulization Of Breath Or Wheezing #180 mL soln acetaminophen 500 mg tablet 500 - 1,000 mg (1 - 2 x 500 mg) PO 11/14/24 (Tylenol Extra Strength) QID PRN pain #30 tabs morphine 15 mg immediate release 15 mg PO Q6H PRN severe pain 11/14/24 tablet (scale score 7-10) #12 tabs prednisone 20 mg tablet 40 mg (2 x 20 mg) PO DAILY 4 days 11/14/24 #8 tabs Allergies Allergy/AdvReac Type Severity Reaction Status Date / Time No Known Allergies (No Known Allergy Verified 11/14/24 07:33 Allergies*) Review of Systems Review of Systems: Yes all other systems are reviewed and are negative Constitutional: Constitutional: Reports as per [facility] Past Medical History Medical History (Updated 11/14/24 @ 10:20 by ESHA Rubin) Atrial fibrillation Paroxysmal atrial fibrillation Atrial flutter CAD (coronary artery disease) Junctional bradycardia COVID-19 Blindness of left eye History of eye prosthesis Thyroid disease GERD (gastroesophageal reflux disease) Numbness On beta patrick at home On anticoagulant therapy Murmur PVD (peripheral vascular disease) Myocardial infarction Alcohol dependence Post laminectomy syndrome Asthma Renal stones COPD (chronic obstructive pulmonary disease) Anemia Hepatitis C Hyperlipidemia HTN (hypertension) SVT (supraventricular tachycardia) Surgical History Hx of eye surgery History of esophagogastroduodenoscopy (EGD) H/O colonoscopy S/P lobectomy of lung (~05/2021) Stented coronary artery Hx of thyroidectomy History of back surgery Hx of cardiac cath Family History Family History Father Cancer Mother CVD (cardiovascular disease) Social History Social History Household Members: None Housing: Apartment Are you a primary child day care provider to a significant other at home: No Do you presently have visiting nurse or other home services: No Alcohol intake: current Alcohol intake frequency: 0-2 drinks per day Alcohol type: hard liquor Patient Tobacco Use Status: Former Tobacco user Tobacco use type: Cigarette Cigarette Packs Per Day: 1 Cigarettes Per Day: 20.0 Years Smoked: 40/ Stopped at age 54 Second Hand Smoke Exposure: No Substance Use Type: Marijuana Advance Directives Date on File: 09/09/23 service: No Physical Exam Vital Signs: Vital Signs: Last Vital Signs Temp 97.8 F 11/14/24 07:31 Pulse 84 11/14/24 07:31 Resp 18 11/14/24 07:31 BP 146/74 H 11/14/24 07:31 Pulse Ox 97 11/14/24 07:31 O2 Del Method Room Air 11/14/24 07:31 BMI result Body Mass Index 32.5 Const: General: cooperative, comfortable and no acute distress Orientation/consciousness: patient oriented x3 Limitations: no limitations HEENT: Head: Yes normal to inspection, Yes normocephalic and Yes atraumatic Ears: hearing grossly normal bilaterally General nose exam: Normal external nose present Face and sinus: Yes normal facial exam Mouth: Normal oral and palatal mucosa present, oropharynx normal and moist mucous membranes Throat: Yes posterior oropharynx normal Eyes: General: appearance normal, both eyes and all related structures Eyelids: Yes eyelids normal Conjunctivae: conjunctivae normal Sclerae: sclerae normal Pupils: Equal, round and reactive pupils present EOM: EOMs intact bilaterally Neck: Neck: Yes normal visual inspection, Yes full ROM and Yes no lymphadenopathy Lymphatic: no lymphadenopathy noted Chest: Chest palpation & inspection: normal inspection of the chest Resp: Effort & Inspection: normal respiratory effort and able to speak in complete sentences Auscultation: clear to auscultation bilaterally, no crackles, no rales, no rhonchi and no wheezes Cardio: Rate: regular rate Rhythm: regular rhythm Heart sounds: S1 normal heart sound present and S2 normal heart sound present GI: Inspection: Yes normal to inspection Skin: General skin exam: no rashes or lesions noted Trauma: no lacerations or abrasions Wounds: no wounds Neuro: General: patient oriented x3 and moves all extremities Cranial nerves: Yes Equal, round and reactive pupils present Extrem: Other: Right hand with no obvious bony deformity or swelling. He has strong radial pulse, distal sensation circulation intact. Extremely diminished range of motion of all digits, able to flex and extend at the PIP and DIP at each digit however this is significantly limited so and every to pain. Able to flex and extend at the wrist however significantly decreased secondary to pain. No overlying erythema or warmth. Elbow nontender, right shoulder nontender. Exquisite tenderness palpation even to light touch throughout all digits, and wrist. General: Yes normal to inspection Right upper extremity: normal to inspection Left upper extremity: normal to inspection Right lower extremity: normal to inspection Left lower extremity: normal to inspection Medications Administered Discontinued Medications Generic Name Dose Route Start Last Admin Trade Name Freq PRN Reason Stop Dose Admin Morphine Sulfate 15 mg 11/14/24 08:36 11/14/24 08:52 Morphine Sulfate Immed Release 15 Mg Tablet PO 11/14/24 08:37 15 mg ONCE ONE Administration Prednisone 50 mg 11/14/24 08:36 11/14/24 08:52 Prednisone 10 Mg Tablet PO 11/14/24 08:37 50 mg ONCE ONE Administration Medical Decision Making Medical Decision Making MDM Narrative: This is a 69-year-old male, with a history of gout, who presents to the emergency department with concerns of right hand, right wrist pain for the last 4 days. Denies any injury or trauma to his hand or wrist. On arrival, patient's blood pressure elevated at 146/74, all other vital signs within normal limits. He is speaking in full sentences under no acute distress. Patient has been seen here multiple times for gout flare-ups, and this typically affects the right wrist therefore symptoms are likely a gout flare-up with possible carpal tunnel involvement given tingling into his right 1st 2nd and 3rd digits. However given that this is an atypical presentation of his gout flare-ups, will get basic labs, x-ray, and will medicate with prednisone and morphine. 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 X-rays revealing slight leukocytosis at 12.4, and a normocytic anemia with an H&H of 11.8/36.1, chemistry revealing no evidence of JOVITA, CRP elevated at 2.81, ESR elevated at 28. Uric acid is 4.7. Patient is on allopurinol, which could be why uric acid is slightly on the lower end. Patient's presentation most consistent with gout flare-up, with possible underlying carpal tunnel syndrome. He has a wrist splint at home which she will resume wearing. Also given orthopedic follow-up due to recurrent gout, arthritis in hand as well as possible underlying carpal tunnel. Patient re-evaluated, symptoms have improved after receiving prednisone, and morphine. Will discharge on a course of prednisone, as well as pain medication. Patient is currently on Eliquis therefore he is unable to take NSAIDs. Given that he is afebrile, able to move digits, and has had gout flare-ups in the past and this wrist, this is likely his source of presentation. Patient given strict return precautions. Patient understands and agrees with plan. Patient stable for discharge. Differential Diagnosis Differential Diagnoses: The differential diagnosis associated with the presentation includes Gout, arthritis, strain, sprain, carpal tunnel Admission/Observation Consideration of admission/observation: Escalation of care including admission/observation considered Lab Data [facility] Lab Attestation statement: I reviewed the patient's lab results. See MDM and course 11/14/24 09:07 11/14/24 09:07 Labs: Lab Results 11/14/24 Range/Units 09:07 WBC 12.4 H (4.8-10.8) X10*3/uL RBC 4.18 L (4.60-5.80) X10*6/uL Hgb 11.8 L (14.0-18.0) g/dl Hct 36.1 L (42.0-52.0) % MCV 86.4 (80.0-98.0) fL MCH 28.2 (27.0-33.0) pg MCHC 32.7 (31.0-36.0) g/dl RDW 15.8 (11.0-16.0) % Plt Count 192 D (160-400) X10*3/uL MPV 10.1 (9.4-12.4) fL Immature Gran % (Auto) 1.0 H (0.0-0.4) % Neut % (Auto) 70.0 (45-73) % Lymph % (Auto) 11.3 L (20-40) % Holmes % (Auto) 11.2 H (2-11) % Eos % (Auto) 5.9 H (0-4) % Baso % (Auto) 0.6 (0-2) % Lymph # (Auto) 1.4 (1.2-4.9) X10*3/uL Holmes # (Auto) 1.4 H (0.1-1.2) X10*3/uL Eos # (Auto) 0.7 H (0.0-0.4) X10*3/uL Baso # (Auto) 0.1 (0.0-0.2) X10*3/uL Abs Immat Gran (auto) 0.12 H (0.00-0.03) X10*3/uL Absolute Neuts (auto) 8.7 H (2.0-8.3) x10*3/uL Absolute Nucleated RBC 0.000 (0.0-0.012) X10*3/uL Nucleated RBC % (auto) 0.0 (0.0-0.2) /100WBC ESR 28 H (0-15) MM/HR Sodium 136 (135-145) mmol/L Potassium 4.6 (3.3-5.1) mmol/L Chloride 107 (96-108) mmol/L Carbon Dioxide 19 L (22-29) mmol/L Anion Gap 15 (12-20) BUN 16 (9-16) mg/dL Creatinine 1.12 (0.5-1.4) mg/dL Estim Creat Clear Calc 78.2 Estimated GFR > 60 Random Glucose 116 H (60-115) mg/dL Uric Acid 4.7 (3.4-7.0) mg/dL Calcium 9.3 (8.4-10.2) mg/dL Total Bilirubin 0.6 (0.0-1.0) mg/dL AST 30 (5-37) U/L ALT 33 (0-40) U/L Alkaline Phosphatase 107 (39-117) U/L C-Reactive Protein 2.81 H (< or = 0.50) mg/dL Total Protein 6.9 (6.5-8.0) g/dL Albumin 4.2 (3.5-5.0) g/dL Radiology Impression Discussion of test interpretation with radiology: I have reviewed the radiologist's reading. Radiologist Impression: EXAMINATION: XR WRIST 3 OR MORE VIEWS RIGHT HISTORY: pain hx of gout COMPARISON: Comparison is made with the prior examination dated 11/05/2023. FINDINGS: Four views of the right wrist including a scaphoid view are submitted. Osseous mineralization is normal. There is no fracture or dislocation. There is mild degenerative change of the 1st carpometacarpal joint and moderate osteoarthritis of the interphalangeal joint of the thumb. There are vascular calcifications. 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 Electronically signed by: Kenny Peter MD 11/14/2024 08:57 AM EDT Dictated By: Kenny Peter MD Discharge Plan Discharge Clinical Impression: Gout, Wrist pain, right Patient Disposition: Home, Self-Care Instructions: Low Purine Diet (ED), Gout (ED) Additional Instructions: You were seen in the emergency department due to right hand and wrist pain. Your overall workup today is consistent with an inflammatory process. This is likely due to a gout flare-up with possible underlying carpal tunnel syndrome. Please take prednisone as directed, finish the entire course, resume this tomorrow as you already received a large dose today. Continue taking Tylenol as directed. You may also take morphine as directed, please be advised that this is a medication that can be addictive, use sparingly, and reserve this for severe pain only. Please be advised that this can cause drowsiness, do not drink alcohol or drive while taking this medication. Please follow-up with the compensation/benefits specialist for further management. If any new or worsening symptoms occur including but not limited to severe chest pain, worsening pain in your wrist, overlying warmth/redness, fevers, please seek emergent care. Prescriptions: New morphine 15 mg tablet 15 mg PO Q6H PRN (Reason: severe pain (scale score 7-10)) Qty: 12 0RF Rx Instructions: Partial Fill upon patient request. prednisone 20 mg tablet 40 mg PO DAILY 4 Days Qty: 8 0RF Rx Instructions: start 11/15/2024 acetaminophen [Tylenol Extra Strength] 500 mg tablet 500 - 1,000 mg PO QID PRN (Reason: pain) Qty: 30 0RF No Action atorvastatin 40 mg tablet 40 mg PO DAILY Qty: 90 3RF amlodipine 10 mg tablet 10 mg PO DAILY Qty: 90 3RF Eliquis 5 mg tablet 5 mg PO BID Qty: 60 5RF cyanocobalamin (vitamin B-12) [Vitamin B-12] 500 mcg Tablet 500 mcg PO DAILY cholecalciferol (vitamin D3) [Vitamin D3] 25 mcg (1,000 unit) Capsule 25 mcg PO DAILY Trelegy Ellipta 200-62.5-25 mcg blister with device 1 ea INHALATION DAILY magnesium oxide 400 mg (241.3 mg magnesium) tablet 400 mg PO BIDWM acetaminophen 325 mg capsule 650 mg PO Q6H PRN (Reason: pain) Qty: 30 0RF gabapentin 600 mg tablet 600 mg PO BID famotidine 40 mg tablet 40 mg PO BID colchicine 0.6 mg tablet 0.6 mg PO BID PRN ferrous sulfate [FeroSul] 325 mg (65 mg iron) tablet 325 mg PO Q OTHER DAY albuterol sulfate 90 mcg/actuation HFA aerosol inhaler 2 puff inhalation QID PRN (Reason: Shortness Of Breath Or Wheezing) allopurinol 100 mg tablet 100 mg PO DAILY ipratropium-albuterol 0.5 mg-3 mg(2.5 mg base)/3 mL solution for nebulization 3 ml INHALATION TID PRN (Reason: Shortness Of Breath Or Wheezing) Qty: 180 0RF Ref[place]: [facility] [Provider Group] Print Language: Kinyarwanda
[2024-11-14] MEDS: Morphine Sulfate Immed Release 15 MG TABLET PO (08:52)
[2024-11-14 09:12] LABS: MANUAL DIFF FLAG NO
[2024-11-14 09:15] LABS: Hematocrit 36.1 % (42.0-52.0); Hemoglobin 11.8 g/dl (14.0-18.0); Imm Gran Abs Auto 0.12 X10*3/uL (0.00-0.03); Imm Gran Pct Auto 1.0 % (0.0-0.4); Lymphocytes Absolute Auto 1.4 X10*3/uL (1.2-4.9); Mean Corpuscular HGB Conc 32.7 g/dl (31.0-36.0); Mean Corpuscular Hemoglobin 28.2 pg (27.0-33.0); Mean Corpuscular Volume 86.4 fL (80.0-98.0); NRBC Abs Auto 0.000 X10*3/uL (0.0-0.012); NRBC Pct Auto 0.0 /100WBC (0.0-0.2); Platelet Count 192 X10*3/uL (160-400); Red Blood Count 4.18 X10*6/uL (4.60-5.80); White Blood Count 12.4 X10*3/uL (4.8-10.8)
[2024-11-14 09:28] LABS: Alanine Aminotransferase 33 U/L (0-40); Albumin Level 4.2 g/dL (3.5-5.0); Alkaline Phosphatase 107 U/L (39-117); Anion Gap 15 (12-20); Aspartate Amino Transferase 30 U/L (5-37); Blood Urea Nitrogen 16 mg/dL (9-16); Calcium 9.3 mg/dL (8.4-10.2); Carbon Dioxide 19 mmol/L (22-29); Chloride 107 mmol/L (96-108); Creatinine Clr Calc Pharmacy 78.2; Estimated Glomerular Filt Rate > 60; Potassium 4.6 mmol/L (3.3-5.1); Sodium 136 mmol/L (135-145); Total Protein 6.9 g/dL (6.5-8.0); Uric Acid 4.7 mg/dL (3.4-7.0)
[2024-11-14 10:25] VITALS: BP 146/74; PULSE 84; RESP 18; TEMP 36.6; O2SAT 97
== END 2024-11-14 10:27 | disposition home or self-care (01) ==
PROVIDERS: Physician Assistant Medical; Emergency Provider Emergency Medicine; PCP Internal Medicine
DX: M10.9 Gout, unspecified (principal); M25.531 Pain in right wrist; M19.041 Primary osteoarthritis, right hand
CPT/HCPCS: 36415; 73110; 80053; 84550; 85025; 85652; 86140; 99284

== ENCOUNTER → 2024-11-14 08:35 | Outpatient (BNV) | payer MEDICARE, MEDICAID, SELFPAY | PROVIDERS: Emergency Provider Emergency Medicine; PCP Internal Medicine; Visit Provider Radiology Diagnostic Radiology | DX: M18.11 Unilateral primary osteoarthritis of first carpometacarpal joint, right hand (principal) | CPT/HCPCS: 73110 ==

== ENCOUNTER 2024-11-15 12:09 | Day surgery (SDC) | payer MEDICARE, MEDICAID, SELFPAY ==
--- NOTE | 2024-11-14 11:41 | HO.ANESPROP2 ---
Documented by User: Missy Recinos NP 11/14/24 12:03 HPI - Anesthesia Eval Consult details Narrative: 69 yr old male for cardioversion Seen at [facility] ED 11/14/24, diagnosed with gout, prescribed prednisone. Treated for CHF & PNA July 2024 following [place] [facility]; pulmonary planning to repeat chest CT in 6-8 weeks Cardiac pacemaker: 10/14/24 Pacemaker function is adequate. Persistent atrial fibrillation noted CAD with prior inferior [place] with RCA stent H/O severe XAVIER: not on CPAP, following with [facility] pulmonary Aortic stenosis by recent echo: saw Dr. Em 10/02/24 who reviewed echo & suggested cardiac cath [facility] Active Problems Active Problems: All Active Problems (Updated 11/14/24 @ 10:20 by ESHA Rubin) Wrist pain, right (Acute) Gout (Acute) Atrial fibrillation (Acute) History of recent pneumonia (Acute) Nocturnal hypoxemia (Acute) Atrial flutter (Acute) Cardiac pacemaker in situ (Acute) Personal history of tobacco use (Acute) Obstructive sleep apnea (Acute) COPD (chronic obstructive pulmonary disease) (Acute) Ectopic atrial tachycardia (Acute) CAD (coronary artery disease) (Acute) Spinal stenosis (Acute) S/P spinal surgery (Acute) Aortic stenosis (Acute) COVID (Acute) PAD (peripheral artery disease) (Acute) Back pain (Acute) Lumbar radiculopathy (Acute) Lumbar spondylosis (Acute) Post laminectomy syndrome (Acute) Alcohol dependence (Acute) SVT (supraventricular tachycardia) (Acute) HTN (hypertension) (Acute) Hyperlipidemia (Acute) Past Medical History Medical History (Updated 11/15/24 @ 00:00 by Kathie Armas) Atrial fibrillation Paroxysmal atrial fibrillation Atrial flutter CAD (coronary artery disease) Junctional bradycardia COVID-19 Blindness of left eye History of eye prosthesis Thyroid disease GERD (gastroesophageal reflux disease) Numbness On beta patrick at home On anticoagulant therapy Murmur PVD (peripheral vascular disease) Myocardial infarction Alcohol dependence Post laminectomy syndrome Asthma Renal stones COPD (chronic obstructive pulmonary disease) Anemia Hepatitis C Hyperlipidemia HTN (hypertension) SVT (supraventricular tachycardia) Family History Family History Father Cancer Mother CVD (cardiovascular disease) Family history of problems with anesthesia: No Surgical History Surgical History Hx of eye surgery History of esophagogastroduodenoscopy (EGD) H/O colonoscopy S/P lobectomy of lung (~05/2021) Stented coronary artery Hx of thyroidectomy History of back surgery Hx of cardiac cath History of Problems with Anesthesia: No Social History Social History Household Members: None Housing: Apartment Are you a primary home health care worker to a significant other at home: No Do you presently have visiting nurse or other home services: No Alcohol intake: current Alcohol intake frequency: does not drink Alcohol type: hard liquor Patient Tobacco Use Status: Former Tobacco user Tobacco use type: Cigarette Cigarette Packs Per Day: 1 Cigarettes Per Day: 20.0 Years Smoked: 40/ Stopped at age 54 Second Hand Smoke Exposure: No Use of substances other than those prescribed or required for medical reasons: No Substance Use Type: Marijuana Have you been hit, kicked, punched, or otherwise hurt by someone within the past year? If so, by whom?: No Are you DNR?: No Advance Directives: No Advance Directives Information Provided: Yes Advance Directives on File: No Advance Directives Date on File: 09/09/23 Poor oral hygiene: No service: No Meds Allergies Allergy/AdvReac Type Severity Reaction Status Date / Time No Known Allergies (No Known Allergy Verified 11/14/24 07:33 Allergies*) Home Medications ?Medication ?Instructions ?Recorded ?Confirmed ?Last Taken ?Type famotidine 40 mg tablet 40 mg PO BID 04/12/20 11/15/24 09/14/23 06:30 History gabapentin 600 mg tablet 600 mg PO BID 04/12/20 11/15/24 09/14/23 06:30 History albuterol sulfate 90 mcg/actuation 2 puff inhalation QID PRN 10/26/22 11/15/24 09/14/23 06:30 History aerosol inhaler Shortness Of Breath Or Wheezing cholecalciferol (vitamin D3) 25 25 mcg PO DAILY 05/19/23 11/15/24 09/14/23 06:30 History mcg (1,000 unit) capsule (Vitamin D3) cyanocobalamin (vitamin B-12) 500 500 mcg PO DAILY 05/19/23 11/15/2424 06:30 History mcg tablet (Vitamin B-12) fluticasone fur. 200 mcg-umeclid 1 ea inhalation DAILY 05/19/23 11/15/24 09/14/23 06:30 History 62.5 mcg-vilant 25 mcg inhalat.powder (Trelegy Ellipta) magnesium oxide 400 mg (241.3 mg 400 mg PO BIDWM 09/14/23 11/15/24 09/14/23 06:30 History magnesium) tablet allopurinol 100 mg tablet 100 mg PO DAILY 05/04/24 11/15/24 Unknown History colchicine 0.6 mg tablet 0.6 mg PO BID PRN Inflammation 07/17/24 11/15/24 Unknown History ferrous sulfate 325 mg (65 mg 325 mg PO Q OTHER DAY 10/02/24 11/15/24 Unknown History iron) tablet (FeroSul) Exam Pertinent Lab Results Pertinent Lab Results: Laboratory Tests 11/14/24 09:07 WBC 12.4 H RBC 4.18 L Hgb 11.8 L Hct 36.1 L Plt Count 192 D Sodium 136 Potassium 4.6 BUN 16 Creatinine 1.12 Narrative Narrative: ECHO 04/2024 Conclusions: - 1. Normal LV ejection fraction of 60 65% with moderate LVH with restrictive filling defect 2. Moderately dilated right-sided chambers with normal RV systolic function 3. Severely dilated left atrium 4. Moderate calcific aortic stenosis 5. Normal RV systolic pressure 6. Mildly dilated ascending aorta at 3.8 cm 7. No gross pericardial effusion Cardiac Cath 11/02/24 Assessment and Plan Final Anesthetic Review Family History of Problems with Anesthesia: No History of Problems with Anesthesia: No Documented by User: Jennifer Sheldon MD 11/15/24 13:35 [facility] Past Medical History Medical History (Updated 11/15/24 @ 00:00 by Background Daal) Atrial fibrillation Paroxysmal atrial fibrillation Atrial flutter CAD (coronary artery disease) Junctional bradycardia COVID-19 Blindness of left eye History of eye prosthesis Thyroid disease GERD (gastroesophageal reflux disease) Numbness On beta patrick at home On anticoagulant therapy Murmur PVD (peripheral vascular disease) Myocardial infarction Alcohol dependence Post laminectomy syndrome Asthma Renal stones COPD (chronic obstructive pulmonary disease) Anemia Hepatitis C Hyperlipidemia HTN (hypertension) SVT (supraventricular tachycardia) Family History Family History Father Cancer Mother CVD (cardiovascular disease) Surgical History Surgical History Hx of eye surgery History of esophagogastroduodenoscopy (EGD) H/O colonoscopy S/P lobectomy of lung (~05/2021) Stented coronary artery Hx of thyroidectomy History of back surgery Hx of cardiac cath Social History Social History Household Members: None Housing: Apartment Are you a primary home health care worker to a significant other at home: No Do you presently have visiting nurse or other home services: No Alcohol intake: current Alcohol intake frequency: does not drink Alcohol type: hard liquor Patient Tobacco Use Status: Former Tobacco user Tobacco use type: Cigarette Cigarette Packs Per Day: 1 Cigarettes Per Day: 20.0 Years Smoked: 40/ Stopped at age 54 Second Hand Smoke Exposure: No Use of substances other than those prescribed or required for medical reasons: No Substance Use Type: Marijuana Have you been hit, kicked, punched, or otherwise hurt by someone within the past year? If so, by whom?: No Are you DNR?: No Advance Directives: No Advance Directives Information Provided: Yes Advance Directives on File: No Advance Directives Date on File: 09/09/23 Poor oral hygiene: No service: No Meds Allergies Allergy/AdvReac Type Severity Reaction Status Date / Time No Known Allergies (No Known Allergy Verified 11/14/24 07:33 Allergies*) Home Medications ?Medication ?Instructions ?Recorded ?Confirmed ?Last Taken ?Type famotidine 40 mg tablet 40 mg PO BID 04/12/20 11/15/24 09/14/23 06:30 History gabapentin 600 mg tablet 600 mg PO BID 04/12/20 11/15/24 09/14/23 06:30 History albuterol sulfate 90 mcg/actuation 2 puff inhalation QID PRN 10/26/22 11/15/24 09/14/23 06:30 History aerosol inhaler Shortness Of Breath Or Wheezing cholecalciferol (vitamin D3) 25 25 mcg PO DAILY 05/19/23 11/15/24 09/14/23 06:30 History mcg (1,000 unit) capsule (Vitamin D3) cyanocobalamin (vitamin B-12) 500 500 mcg PO DAILY 05/19/23 11/15/24 09/14/23 06:30 History mcg tablet (Vitamin B-12) fluticasone fur. 200 mcg-umeclid 1 ea inhalation DAILY 05/19/23 11/15/24 09/14/23 06:30 History 62.5 mcg-vilant 25 mcg inhalat.powder (Trelegy Ellipta) magnesium oxide 400 mg (241.3 mg 400 mg PO BIDWM 09/14/23 11/15/24 09/14/23 06:30 History magnesium) tablet allopurinol 100 mg tablet 100 mg PO DAILY 05/04/24 11/15/24 Unknown History colchicine 0.6 mg tablet 0.6 mg PO BID PRN Inflammation 07/17/24 11/15/24 Unknown History ferrous sulfate 325 mg (65 mg 325 mg PO Q OTHER DAY 10/02/24 11/15/24 Unknown History iron) tablet (FeroSul) Exam Airway Mallampati Class: III TM Dist: >3cm Denture: Upper Partial: Lower Assessment and Plan Assessment Anesthesia Assessment: Anesthesia Plan Discussed and Chart Reviewed Final Anesthetic Review NPO: Yes ASA Class: III Final Preanesthetic Review: No Changes in Pt Med Stat, Meds/Allgs Chart Reviewed, Consent Obtained/Reviewed and Anes Risks/Benef Reviewed Patient Risk: Intermediate Procedure Risk: Low Anesthetic Plan Anesthetic Plan: GA Disposition: Standard PACU
[2024-11-15 12:17] VITALS: BMI 31.3
[2024-11-15 12:34] VITALS: BP 151/82; PULSE 71; RESP 16; TEMP 36.3; O2SAT 94
[2024-11-15] MEDS: Lactated Ringers 1,000 ML 100 ML IVCONT (13:04)
--- NOTE | 2024-11-15 13:31 | MHC.SHP ---
Pre-Procedural Eval Section A - 24 Hr Update-Section A only Date of Service: 11/15/24 The patient is an INPATIENT: No Changes since office visit: Yes Changes in Medication and Yes Patient answered all questions; No Cold of Flu in the past 2 weeks and No New Medical Problems Section B - Complete if H&P > 30 days Chief Complaint: Unspecified atrial fibrillation Details of Present Illness: Patient with ongoing symptoms of significant fatigue and tiredness and persistent atrial flutter/tachycardia with underlying pacemaker. He is status post ablation but that has not lead to improvement in his symptoms. He also has moderately severe aortic stenosis Relevant Family History (Specify if Yes): No Relevant Social History: Tobacco Use (Prior) Present Medications: see Short Stay Collaborative assessment Medical History: Significant History History of Previous Operations: Relevant previous surgery/procedure and date(s) Allergies: Allergies Allergy/AdvReac Type Severity Reaction Status Date / Time No Known Allergies (No Known Allergy Verified 11/14/24 07:33 Allergies*) Review of Systems Sugical H&P ROS: Negative: Constitution, Neurological, Psychiatric, Hem-Onc, Allergic/Immunologic, Gastrointestinal, Genitourinary, Musculoskeletal and Endocrine and Yes, Specify: Cardiovascular (Exertional shortness of breath and fatigue) and Respiratory (Same) Exam Surgical H&P Exam: Normal: HEENT, Normal: Heart, Normal: Lungs, Normal: Extremities, Normal: Abdomen, Normal: Skin and Normal: Neurological Plan Diagnosis/Plan: Unchanged I have reviewed the history and physical and performed a pertinent physical examination on my patient. No changes have occurred unless specified. Time Spent With Patient Time: Total time managing care of this patient today ____ minutes.
[2024-11-15 14:05] VITALS: BP 149/76; PULSE 73; RESP 17; TEMP 36.6; O2SAT 97
--- NOTE | 2024-11-15 14:09 | ECG_ITS ---
Test Reason : post op Blood Pressure : */* mmHG Vent. Rate : 70 BPM Atrial Rate : 70 BPM P-R Int : 192 ms QRS Dur : 124 ms QT Int : 458 ms P-R-T Axes : 92 -69 99 degrees QTcB Int : 494 ms AV dual-paced rhythm Abnormal ECG When compared with ECG of 05-Nov-2023 09:20, Electronic ventricular pacemaker has replaced Atrial flutter Referred By: Danilo Em Electronically Signed By: PHILOMENA BOSTON
[2024-11-15 14:10] VITALS: BP 126/81; PULSE 70; RESP 16; O2SAT 97
--- NOTE | 2024-11-15 14:11 | HO.CARDIVERS ---
Cardioversion Procedure Note Cardioversion Date of Procedure: 11/15/2024 Ordering Provider: Nirmala Em Performing Provider: Nirmala Em Indication for Procedure: Symptomatic persistent atrial tachycardia/flutter Pre-Op Diagnosis: Same Post-Op Diagnosis: Atrial paced rhythm Performed with Transesophageal Echo: No History: See my office note Consent: Verbal and Written consent was obtained from the patient before starting after confirming oral anticoagulation amiodarone use. The patient was made aware of the risk of synchronized cardioversion including benefits and alternatives Procedure: After consent obtained, cardioversion pads were attached in anteroposterior configuration and the patient was sedated by the anesthesia team. Once adequate sedation achieved, patient was delivered 200 joules of biphasic synchronized energy in anteroposterior configuration Pacemaker was reprogrammed from VVIR to DDDR at 70 beats per minute. Underlying multiple atrial ectopy noted along with ectopic atrial rhythm. Atrial pacing thresholds excellent and reprogrammed. Pacing lead impedance is stable. Complications: None Impression: Reestablish AV synchrony Recommendations: 1. 12 lead EKG 2. Continue amiodarone and oral anticoagulation therapy next 3. Follow-up office visit in 2 weeks.
[2024-11-15 14:15] VITALS: BP 142/80; PULSE 71; RESP 16; O2SAT 97
[2024-11-15 14:20] VITALS: BP 149/81; PULSE 69; RESP 16; O2SAT 97
[2024-11-15 14:35] VITALS: BP 158/84; PULSE 74; RESP 16; TEMP 36.6; O2SAT 96
== END 2024-11-15 15:09 | disposition home or self-care (01) ==
PROVIDERS: PCP Internal Medicine; Visit Provider Internal Medicine Cardiovascular Disease
PROC: 5A2204Z Restoration of Cardiac Rhythm, Single (ICD-10-PCS; principal; 2024-11-15 13:30)
DX: I48.19 Other persistent atrial fibrillation (principal); Z45.018 Encounter for adjustment and management of other part of cardiac pacemaker; Z79.01 Long term (current) use of anticoagulants
CPT/HCPCS: 92960; 93005; J2003; J2704

== ENCOUNTER → 2024-11-15 12:09 | Outpatient (BNV) | payer MEDICARE, MEDICAID, SELFPAY | PROVIDERS: PCP Internal Medicine; Visit Provider Internal Medicine Cardiovascular Disease | DX: I48.91 Unspecified atrial fibrillation (principal); R94.31 Abnormal electrocardiogram [ECG] [EKG] | CPT/HCPCS: 92960; 93010 ==

== ENCOUNTER 2024-11-22 09:40 | Outpatient (AMB) | payer MEDICARE, MEDICAID, SELFPAY ==
--- NOTE | 2024-11-22 10:03 | MHC.OFFVIS ---
Vital Signs 11/22/24 10:04 Height 6 ft Weight 231 lb 0.711 oz BMI 31.3 BP 140/76 H Blood Pressure Location Lt brachial Position Sitting Pulse 76 Pulse Source Monitor Intake Visit Reasons: TAVR Consult Intake Note: TAVr Consult Building Manager Required: No Accompanied by: Self / Same As Patient Allergies No Known Allergies (No Known Allergies*) Allergy (Verified 11/14/24 07:33) Medication List - Last Reconciled 11/22/24 by Quinn Smyth MD acetaminophen (Tylenol Extra Strength) 500 - 1,000 mg (1 - 2 x 500 mg) PO QID PRN acetaminophen 650 mg (2 x 325 mg) PO Q6H PRN albuterol sulfate 90 mcg/actuation 2 puffs inhalation QID PRN allopurinol 100 mg PO DAILY amlodipine 10 mg PO DAILY apixaban (Eliquis) 5 mg PO BID atorvastatin 40 mg PO DAILY cholecalciferol (vitamin D3) (Vitamin D3) 25 mcg PO DAILY colchicine 0.6 mg PO BID PRN cyanocobalamin (vitamin B-12) (Vitamin B-12) 500 mcg PO DAILY famotidine 40 mg PO BID ferrous sulfate (FeroSul) 325 mg PO Q OTHER DAY [id number] 200-62.5-25 mcg (Trelegy Ellipta) 1 ea inhalation DAILY gabapentin 600 mg PO BID ipratropium-albuterol 0.5 mg-3 mg(2.5 mg base)/3 mL 3 mL inhalation TID PRN magnesium oxide 400 mg PO BIDWM morphine 15 mg PO Q6H PRN prednisone 40 mg (2 x 20 mg) PO DAILY 4 days HPI Comments Details: [age] year gentleman who is here for management of severe aortic valve stenosis. He has background history of COPD, atrial tachycardia, atrial fibrillation status post AV spencer ablation and permanent pacemaker placement and depression. He had echocardiography done on September 19 add [facility] where his ejection fraction was 55-60%, moderately calcified aortic valve, severe aortic valve stenosis with peak gradient 65 mm Hg and mean gradient 41 mm Hg with but aortic valve area of 0.9 cm2. His dimensionless index was 0.25. He subsequently had cardiac catheterization which did not show any significant coronary disease and his calculated aortic valve area was 1.22 cm2 and mean gradient by Paulino was 36 mm Hg. He has significant fatigue and dyspnea with activities. I think his fatigue is out of proportion and I think depression is playing some role in that. During cardiac catheterization he was noticed to have background atrial tachycardia which we tried to do overdrive pacing for but were unsuccessful. Subsequently he underwent cardioversion for that and is currently on amiodarone but his symptoms have not changed after cardioversion for atrial tach. He is taking apixaban for anticoagulation for atrial fibrillation. [facility] Medical History Atrial fibrillation Paroxysmal atrial fibrillation Atrial flutter CAD (coronary artery disease) Junctional bradycardia COVID-19 Blindness of left eye History of eye prosthesis Thyroid disease GERD (gastroesophageal reflux disease) Numbness On beta patrick at home On anticoagulant therapy Murmur PVD (peripheral vascular disease) Myocardial infarction Alcohol dependence Post laminectomy syndrome Asthma Renal stones COPD (chronic obstructive pulmonary disease) Anemia Hepatitis C Hyperlipidemia HTN (hypertension) SVT (supraventricular tachycardia) Surgical History Hx of eye surgery History of esophagogastroduodenoscopy (EGD) H/O colonoscopy S/P lobectomy of lung (~05/2021) Stented coronary artery Hx of thyroidectomy History of back surgery Hx of cardiac cath Family History Father Cancer Mother CVD (cardiovascular disease) Social History Household Members: None Housing: Apartment Are you a primary aged or disabled care worker to a significant other at home: No Do you presently have visiting nurse or other home services: No Alcohol intake: current Alcohol intake frequency: does not drink Alcohol type: hard liquor Patient Tobacco Use Status: Former Tobacco user Tobacco use type: Cigarette Cigarette Packs Per Day: 1 Cigarettes Per Day: 20.0 Years Smoked: 40/ Stopped at age 54 Second Hand Smoke Exposure: No Substance Use Type: Marijuana Advance Directives Date on File: 09/09/23 service: No Review of Systems Const Denies chills, Denies fatigue, Denies fever(s), Denies frequent falls, Denies weakness, Denies weight gain and Denies weight loss ENT Denies dizziness Card Reports chest pain, Denies leg edema, Denies lightheadedness, Denies palpitations, Reports dyspnea and Reports dyspnea on exertion Resp Denies cough, Reports dyspnea and Reports dyspnea on exertion GI Denies hematochezia Musc Denies abnormal gait, Denies muscle weakness, Denies numbness, Denies radiating pain into limb and Denies tingling Neuro Denies abnormal gait, Denies dizziness, Denies frequent falls, Denies numbness, Denies tingling and Denies weakness Endo Denies fatigue and Denies palpitations Physical Exam Vital Signs: Last Vital Signs Pulse 76 11/22/24 10:04 BP 140/76 H 11/22/24 10:04 BMI result Body Mass Index 31.3 GENERAL APPEARANCE: in no acute distress, pleasant. NECK: no carotid bruit, no jugular venous distention. Delayed carotid upstrokes. SKIN: no suspicious lesions, warm and dry. HEART: Ejection systolic murmur aortic area with no 2nd heart sound, regular rate and rhythm. LUNGS: clear to auscultation bilaterally. ABDOMEN: soft, nontender. EXTREMITIES: no edema. PERIPHERAL PULSES: equal. NEUROLOGIC: No gross deficits, AAO X 3 Office Procedures EKG Details: AV dual paced rhythm 76 beats per minute, normal axis, premature ventricular complexes, QTC 486 milliseconds [id number], Complete Assessment & Plan Assessment & Plan (1) Aortic stenosis: Code(s): I35.0 - Nonrheumatic aortic (valve) stenosis Category: Medical Plan Pleasant 69 year gentleman who is here for severe aortic valve stenosis and management of . He has severe aortic valve stenosis by echocardiography and by physical examination. He has fatigue and dyspnea on exertion. We discussed about management options including surgical AVR versus transcatheter aortic valve replacement. He is interested more in transcatheter aortic valve replacement. We discussed about pros and cons of the procedure. He already has a pacemaker in place. We will arrange TAVR protocol CT for him and surgical consult at [facility]. Once he is done with this assessment then we will discuss him in the heart team meeting for final planning. Continue same medications for now. Thank you for allowing me to participate in the care of your patient. Please feel free to contact me if you have any questions. Coding Level of Care Code New Pt Level 5 (25555) Diagnoses Aortic stenosis I35.0 CPT Codes EKG - CPT: 33455-[id number], Complete ([id number])
[2024-11-22 10:04] VITALS: BP 140/76; PULSE 76; BMI 31.3
--- OUTSIDE RECORDS SUMMARY | 2024-11-22 10:40 | XMS_ITS | Clinical Summary ---
Author Organization [facility] Address [address] [place] [address] Phone Care Team Providers Care Cutter Machine Tender Name Role Phone Kojo Fermin MD Primary Care Provider [phone] Allergies No known active allergies Medications albuterol [...] Overview (02/27/2024): Last Assessment & Plan: Mr. iNchole is a 66 yr. male who presents [...] to pulmonary rehab as well as a dentist. Patient is a former smoker with a [id number] history. He states during ambulation he has to take very frequent breaks due to feeling winded . He continues to have some discomfort along his surgical incisional sites however he states that it is manageable. While patient was in office reviewed his most recent chest CT scan which was performed at [facility] on July 31, 2021 and shows chronic [...] COMMENT: Benign thyroid nodule COLONOSCOPY 06/05/08 PROCEDURE: OK COLONOSCOPY STOMA DX INCLUDING COLLJ SPEC SPX; COMMENT: Up to cecum, ascending polyp removed:Adenomatous, Hepatic flexure polyp removed:TA, Sigmoid polyp removed:Hyperplastic. NOT removed 1 polyp at asceding and 2 polyps at transverse OTHER SURGICAL HISTORY PROCEDURE: OK RADIAL KERATOTOMY; COMMENT: left eye Medical History [...] 03/01/2022 Social Influencers of Health Screening 03/01/2022 Depression Screening 03/22/2024 Hypertension/CHF/CAD Annual BMP Blood Test 05/07/2024 05/07/2023 COVID-19 Vaccine (1 - 2023-2 5 season) 2024 Influenza Vaccine (#1) 2024 Cholesterol Screening (Lipid [...] Test (05/07/2023) Annual BMP Blood Test abstracted [facility] Provider HEALTH MAINTENANCE Final Result * [...] * Abdominal Aortic Aneurysm Screen (08/02/2008) Pathologist [facility] Abdominal Aortic Aneurysm (AAA) Screening abstracted Anatomical Region Laterality Modality Other Historical Provider HEALTH MAINTENANCE Final Result from Last 3 Months or Most Recently Relevant to Health Maintenance Insurance [place] Advance Directives Documents on File Type Date Recorded Patient Event Producer Expl anation Health Care Decision (hx) 06/20/2021 [...] (hx) 06/18/2021 AD H[place]TAD[place] DIRECTIVE Care Teams Cutter Machine Tender Relationship Specialty Start Date End Date Kojo Fermin MD [address] [place] [address] PCP - General Internal Medicine 03/27/21
== END 2024-11-22 10:44 | disposition home or self-care (01) ==
LOC: HO.HCS 09:41
PROVIDERS: PCP Internal Medicine; Visit Provider Internal Medicine Cardiovascular Disease
DX: I35.0 Nonrheumatic aortic (valve) stenosis (principal); I49.3 Ventricular premature depolarization
CPT/HCPCS: 93010; 99214

== ENCOUNTER → 2024-11-22 09:40 | Outpatient (BNVA) | payer MEDICARE, MEDICAID, SELFPAY | PROVIDERS: PCP Internal Medicine; Visit Provider Internal Medicine Cardiovascular Disease | DX: I35.0 Nonrheumatic aortic (valve) stenosis (principal) | CPT/HCPCS: 93005; 99212 ==

== ENCOUNTER → 2024-12-01 10:48 | Outpatient (REF) | payer MEDICARE, MEDICAID, SELFPAY ==
--- NOTE | 2024-12-01 10:52 | CA_ITS ---
Transthoracic Echocardiogram Patient (Last, First, Middle): Shane Nichole D Gender: Male Date of : 1955 Age: 69 Procedure Date: 12/01/2024 Procedure Type: Transthoracic Echocardiogram Location: OP Height: 182.88 cm Weight: 104.78 kg BSA: 2.26 m2 Heart Rate: bpm BP: 138 / 80 mmHg Partition Assembler: TO Referring MD: Danilo Em MD Maintenance Planner: Danilo Em MD Symptoms: I35.0 - Nonrheumatic aortic (valve) stenosis Study Quality: Fair/Contrast ECG Rhythm: Sinus Conclusions: - 1. Low normal LV ejection fraction 50-55% with grade 2 diastolic dysfunction 2. Severely enlarged left atrium 3. Severe aortic stenosis 4. Mildly dilated ascending aorta 5. No gross pericardial effusion Findings Procedure Information Contrast agent, definity, is being given per protocol without apparent complications. Left Ventricle Normal left ventricular cavity size. There is moderately increased left ventricular wall thickness. The left ventricular systolic function is low normal. The visually estimated ejection fraction is between 50-55%. There is paradoxical septal motion consistent with a right ventricular pacemaker. Spectral Doppler is indicative of a pseudonormal filling pattern. E/E prime ratio is >15, consistent with elevated filling pressures. Evidence suggests grade II (moderate) diastolic dysfunction. Wall Motion Rest Echo Findings The basal inferior, mid inferior, and basal inferoseptal segments are akinetic. All other scored wall segments showed normal motion. Right Ventricle Moderately increased right ventricular cavity size. There is normal right ventricular systolic function. There is a pacemaker wire seen in the right ventricle. Atria The left atrium is severely dilated. There is no evidence of interatrial shunt. The right atrium is mildly dilated. A pacemaker wire is identified in the right atrium. Aortic Valve There is mild calcification of the aortic valve. There is moderate thickening of the aortic valve. There is severe aortic valve stenosis. The peak aortic gradient is 56 mmHg.The mean gradient is 38 mmHg. The aortic valve area is 0.89 cm2. There is no aortic valve regurgitation. Mitral Valve There is mild anterior and severe posterior mitral leaflet thickening. The posterior mitral leaflet has restricted mobility. There is trace mitral valve regurgitation. There is no mitral valve stenosis. Pulmonic Valve The pulmonic valve is likely normal. Tricuspid Valve Normal tricuspid valve structure. Tricuspid regurgitation envelope is inadequate for calculation of right ventricular systolic pressure. Normal right atrial pressure. Great Vessels The pulmonary artery was not well visualized. There is mild dilatation of the ascending aorta measuring 3.90 cm. Small plaque is seen in the sino tubular ridge. Venous The inferior vena cava is normal in size and collapses greater than 50% with inspiration. Pericardium/Pleural There is no evidence of pericardial effusion. Prior Study Comparison Changes noted compared to prior study dated: 05/01/2024. LV systolic function is depressed. Aortic stenosis is severe Measurements 2D Linear Measurements IVSd: 1.71 0.6-0.9/0.6-1.0 cm LVIDd: 5.26 3.9-5.3/4.2-5.9 cm LVIDd Index: 2.33 2.4-3.2/2.2-3.1 cm/m2 LVIDs: 3.48 2.0-3.6 cm LVPWd: 1.43 0.7-1.1 cm LA Diam: 5.20 2.7-3.8/3.0-4.0 cm LAIDs Index: 2.30 1.5-2.3 cm/m2 LV Mass: 465.06 67-162/88-224 g LV Mass Index: 205.78 43-95/49-115 g/m2 LVOT Diam: 2.30 3.0+(-)1.3 cm 2D Systolic Function EF 4C: 48.40 >55% EF 2C: 52.70 >55% EF BiP: 50.80 >55% Mitral Valve MV VTI: 0.37 MV Pk Omkar: 1.52 MV Mn Omkar: 0.90 MV Pk Grad: 9.00 MV Mn Grad: 4.00 MV Pk E: 1.12 E'Lateral: 5.98 E'Medial: 4.03 E/E' Med: 27.80 E/E' Lat: 18.70 MVA Continuity: 2.18 Aortic Valve AoV Pk Omkar: 3.75 AoV Mn Omkar: 3.01 AoV VTI: 0.90 AoV Pk Grad: 56.00 Aov Mn Grad: 38.00 YAMEL Cont.VTI: 0.89 LVOT LVOT Pk Omkar: 0.87 LVOT Mn Omkar: 0.62 LVOT VTI: 0.19 LVOT Pk Grad: 3.00 LVOT Mn Grad: 2.00 LVOT Diam: 2.30 LVOT Area: 4.15 Diastolic Function MV Pk E: 1.12 E'Medial: 4.03 E/E' Med: 27.80 E' Laterial: 5.98 E/E' Lat: 18.70 Right Ventricle TAPSE (mm): 18.00 TVS' Omkar: 11.50 Tricuspid Valve RA Press: 3.00 Great Vessels Aorta Sinus of Valsalva: 3.80 2.0-3.[address] Ridge: 2.74 1.7-3.4 cm Ao Asc: 3.90 2.1-3.4 cm Updated in Other Vendor System with Status of Final Danilo Em MD electronically signed on 12/02/2024 9:15:14 AM with status of Final
--- OUTSIDE RECORDS SUMMARY | 2024-12-01 12:22 | XMS_ITS | Clinical Summary ---
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 Patient is a former smoker with a 17-lrsi-zvkg history. He states during ambulation he has to take very frequent breaks due to feeling winded . He continues to have some discomfort along his surgical incisional sites however he states that it is manageable. While patient was in office reviewed his most recent chest CT scan which was performed at [facility] on July 31, 2021 and shows chronic [...] COMMENT: Benign thyroid nodule COLONOSCOPY 06/05/08 PROCEDURE: KS COLONOSCOPY STOMA DX INCLUDING COLLJ SPEC SPX; COMMENT: Up to cecum, ascending polyp removed:Adenomatous, Hepatic flexure polyp removed:TA, Sigmoid polyp removed:Hyperplastic. NOT removed 1 polyp at asceding and 2 polyps at transverse OTHER SURGICAL HISTORY PROCEDURE: KS RADIAL KERATOTOMY; COMMENT: left eye Medical History [...] Test (05/07/2023) Annual BMP Blood Test abstracted [facility] Provider HEALTH MAINTENANCE Final Result * [...] Aneurysm Screen (08/02/2008) Pathologist [facility] Abdominal Aortic Aneurysm (AAA) Screening abstracted Anatomical Region Laterality Modality Other Historical Provider HEALTH MAINTENANCE Final Result from Last 3 Months or Most Recently Relevant to Health Maintenance Insurance [place] Advance Directives Documents on File Type Date Recorded Patient Critical Care Unit Manager Expl anation Health Care Decision (hx) [...] DIRECTIVE Health Care Decision (hx) 06/18/2021 AD HUTRADO DIRECTIVE Health Care Decision (hx) 06/18/2021 AD HURTADO DIRECTIVE Health Care Decision (hx) 06/18/2021 AD HURTADO DIRECTIVE Health Care Decision (hx) 06/18/2021 AD HURTADO DIRECTIVE Health Care Decision (hx) 06/18/2021 AD HURTADO DIRECTIVE Health Care Decision (hx) 06/18/2021 AD HURTADO DIRECTIVE Care Teams Curator Of Manuscripts Relationship Specialty Start Date End Date Kojo Fermin MD [address] [place] [address] PCP - General Internal Medicine 03/27/21
== END ==
LOC: HO.CARD 10:48
PROVIDERS: PCP Internal Medicine; Visit Provider Internal Medicine Cardiovascular Disease
DX: I35.0 Nonrheumatic aortic (valve) stenosis (principal)
CPT/HCPCS: 93306; Q9957

== ENCOUNTER → 2024-12-01 10:52 | Outpatient (BNV) | payer MEDICARE, MEDICAID, SELFPAY | PROVIDERS: PCP Internal Medicine; Visit Provider Internal Medicine Cardiovascular Disease | DX: I35.0 Nonrheumatic aortic (valve) stenosis (principal); I51.7 Cardiomegaly | CPT/HCPCS: 93306 ==

== ENCOUNTER 2024-12-12 12:57 | Outpatient (AMB) | payer MEDICARE, MEDICAID, SELFPAY ==
[2024-12-12 13:02] VITALS: BP 100/64; PULSE 81; BMI 31.7
--- NOTE | 2024-12-12 13:02 | A.OFFVIS_ITS ---
Vital Signs 12/12/24 13:02 Height 6 ft Weight 233 lb 11.04 oz BMI 31.7 BP 100/64 Blood Pressure Location Lt brachial Position Sitting Pulse 81 Intake Visit Reasons: 3mth f/up Intake Note: 3 month follow-up with ekg Medtronic check c/o not being able to breath still not sure when or what is happening Engine Manager Required: No Allergies No Known Allergies (No Known Allergies*) Allergy (Verified 12/14/24 13:40) Medication List - Last Reconciled 12/12/24 by Danilo Em MD acetaminophen (Tylenol Extra Strength) 500 - 1,000 mg (1 - 2 x 500 mg) PO QID PRN albuterol sulfate 90 mcg/actuation 2 puffs inhalation QID PRN allopurinol 100 mg PO DAILY amlodipine 10 mg PO DAILY apixaban (Eliquis) 5 mg PO BID atorvastatin 40 mg PO DAILY cholecalciferol (vitamin D3) (Vitamin D3) 25 mcg PO DAILY colchicine 0.6 mg PO BID PRN cyanocobalamin (vitamin B-12) (Vitamin B-12) 500 mcg PO DAILY famotidine 40 mg PO BID ferrous sulfate (FeroSul) 325 mg PO Q OTHER DAY efsmclstuoq-rvcdmbxdh-bxlsoxje 200-62.5-25 mcg (Trelegy Ellipta) 1 ea inhalation DAILY gabapentin 600 mg PO BID ipratropium-albuterol 0.5 mg-3 mg(2.5 mg base)/3 mL 3 mL inhalation TID PRN magnesium oxide 400 mg PO BIDWM HPI Comments Details: Shane comes for follow-up. He has been off amiodarone therapy for unclear reasons, says that pharmacy did not give it to him because he is on PRN colchicine therapy. He said he has not been on it for at least couple of weeks. He had couple of episodes of atrial fibrillation. He said he felt like his heart was coming out of his chest. He continues to remain significantly short of breath and fatigue. Has had repeat echocardiogram which shows severe aortic stenosis. Has been seen by cardiac surgery as well as interventional Cardiology in all agree to pursue with transcatheter aortic valve replacement. He has no orthopnea, PND, leg edema. No lightheadedness, syncope. No bleeding issues or neurologic events. [facility] Medical History Paroxysmal atrial fibrillation Atrial fibrillation Atrial flutter CAD (coronary artery disease) Junctional bradycardia COVID-19 Blindness of left eye History of eye prosthesis Thyroid disease GERD (gastroesophageal reflux disease) Numbness On beta patrick at home On anticoagulant therapy Murmur PVD (peripheral vascular disease) Myocardial infarction Alcohol dependence Post laminectomy syndrome Asthma Renal stones COPD (chronic obstructive pulmonary disease) Anemia Hepatitis C Hyperlipidemia HTN (hypertension) SVT (supraventricular tachycardia) Surgical History Hx of eye surgery History of esophagogastroduodenoscopy (EGD) H/O colonoscopy S/P lobectomy of lung (~05/2021) Stented coronary artery Hx of thyroidectomy History of back surgery Hx of cardiac cath Family History Father Cancer Mother CVD (cardiovascular disease) Social History Household Members: None Housing: Apartment Are you a primary housekeeper child care to a significant other at home: No Do you presently have visiting nurse or other home services: No Alcohol intake: current Alcohol intake frequency: former alcohol drinker Alcohol type: hard liquor Patient Tobacco Use Status: Former Tobacco user Tobacco use type: Cigarette Cigarette Packs Per Day: 1 Cigarettes Per Day: 20.0 Years Smoked: 40/ Stopped at age 54 Second Hand Smoke Exposure: No Substance Use Type: Marijuana Substance Use Frequency: Daily Have you been hit, kicked, punched, or otherwise hurt by someone within the past year? If so, by whom?: No Are you DNR?: No Advance Directives: No Advance Directives Information Provided: Yes Advance Directives Date on File: 09/09/23 Poor oral hygiene: Yes service: No Review of Systems Const Denies chills, Denies fatigue, Denies fever(s), Denies frequent falls, Denies weakness, Denies weight gain and Denies weight loss ENT Denies dizziness Card Denies chest pain, Denies leg edema, Denies lightheadedness, Denies palpitations, Denies dyspnea, Denies dyspnea on exertion, Denies orthopnea and Denies other (loss of consciousness) Resp Denies cough, Denies dyspnea and Denies dyspnea on exertion GI Denies hematochezia and Denies change in stool character Musc Denies abnormal gait, Denies muscle weakness, Denies numbness, Denies radiating pain into limb and Denies tingling Neuro Denies abnormal gait, Denies dizziness, Denies frequent falls, Denies numbness, Denies tingling and Denies weakness Endo Denies fatigue and Denies palpitations Physical Exam Vital Signs: Last Vital Signs Pulse 81 12/12/24 13:02 BP 100/64 12/12/24 13:02 BMI result Body Mass Index 31.7 Const General: cooperative, comfortable, no acute distress, alert and awake Nutritional Appearance: overweight Orientation/consciousness: patient oriented x3 Limitations: no limitations Neck Neck: Yes trachea midline and Yes no JVD Resp Effort & Inspection: normal respiratory effort Auscultation: clear to auscultation bilaterally and diminished lung sounds Cardio Jugular venous distension: no JVD Palpation: normal PMI Rate: regular rate Rhythm: regular rhythm and abnormal rhythm irregularly irregular Heart sounds: S1 normal heart sound present, no click, no gallops, Murmur heart sound present systolic late and decrescendo, no rubs and Other heart sounds present (Very soft S2) GI Auscultation: normal bowel sounds Skin General skin exam: ecchymosis Neuro General: patient oriented x3 and no focal motor deficits Extrem General: Yes no clubbing, cyanosis or edema Office Procedures Cardiac Device Check Cardiac Device Check Details: Dual-chamber Medtronic pacemaker in place programmed in DDDR mode at 70 beats per minute. Atrial pacing 48% of the time. Ventricularly pacer dependent. Atrial sensing is adequate. Ventricular sensing could not be checked. No episodes of atrial fibrillation noted. Pacing lead impedance is stable. Atrial pacing thresholds excellent and reprogrammed to enhance battery life. Ventricular pacing thresholds excellent and reprogrammed to enhance battery life. Battery life is excellent 10616-QS Cardiac Device Check, pacemaker dual lead Procedure code (CPT) selection complete EKG Details: EKG shows a sensed V paced rhythm 39823-[id number], Complete Assessment & Plan Assessment & Plan (1) Aortic stenosis: Code(s): I35.0 - Nonrheumatic aortic (valve) stenosis Category: Medical Plan: Aortic stenosis which appears both clinically as well as by echocardiogram severe. Has been seen by interventional as well as surgical colleagues. Has been plan to undergo a TAVR although noted that he has significant peripheral vascular disease and that has going to be a issue with access from transfemoral route. Further planning being performed. He is very symptomatic with symptoms of shortness of breath and fatigue although I do not think all of his symptoms related to aortic stenosis. However I think some of his symptoms would improve in his functional capacity will improve. He is looking forward to it. Continue aggressive vascular risk factor modification for the same. (2) Paroxysmal atrial fibrillation: Code(s): I48.0 - Paroxysmal atrial fibrillation Category: Medical Plan: Patient maintaining rhythm after cardioversion but currently off amiodarone therapy. I have advised him to restart amiodarone 200 mg daily to help with maintaining rhythm with AV synchrony. He understands agrees. Continue full oral anticoagulation, currently on Eliquis 5 mg b.i.d.. Avoidance of stimulants such as alcohol and caffeine was discussed. Will follow remotely with pacer telemetry. (3) CAD (coronary artery disease): Code(s): I25.10 - Atherosclerotic heart disease of grindstone coronary artery without angina pectoris Category: Medical Plan: CAD with remote stenting. No continue full oral anticoagulation Eliquis. Continue aggressive risk factor modification with high-intensity statin therapy. Target goal LDL less than 70 mg/dL. Continue aggressive blood pressure control. (4) Cardiac pacemaker in situ: Code(s): Z95.0 - Presence of cardiac pacemaker Category: Medical Plan: Cardiac pacemaker in-situ status post AV spencer ablation. Currently ventricularly pacer dependent. Pacemaker is working well. Follow remotely. Will follow up in the clinic in 6 months time, sooner PRN. Thank you for allowing me to partake in his care Medications: New amiodarone 200 mg PO DAILY 30 tabs 5RF Coding Level of Care Code Est Pt Level 5 (31694) Complex EM visit Add On G2211 Diagnoses Aortic stenosis I35.0 Paroxysmal atrial fibrillation I48.0 CAD (coronary artery disease) I25.10 Cardiac pacemaker in situ Z95.0 CPT Codes Cardiac Device Check - Cardiac Device 2: [id number] Cardiac Device Check, pacemaker dual lead ([id number]) EKG - CPT: 64394-[id number], Complete ([id number])
--- OUTSIDE RECORDS SUMMARY | 2024-12-12 15:52 | XMS_ITS | Clinical Summary ---
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 Patient is a former smoker with a 29-znrw-mlmg history. He states during ambulation he has [...] COMMENT: Benign thyroid nodule COLONOSCOPY 06/05/08 PROCEDURE: CT COLONOSCOPY STOMA DX INCLUDING COLLJ SPEC SPX; COMMENT: Up to cecum, ascending polyp removed:Adenomatous, Hepatic flexure polyp removed:TA, Sigmoid polyp removed:Hyperplastic. NOT removed 1 polyp at asceding and 2 polyps at transverse OTHER SURGICAL HISTORY PROCEDURE: CT RADIAL KERATOTOMY; COMMENT: left eye Medical History [...] Vaccines (1 of 2) 01/08/2004 RSV Immunization Adult Patie nts (1 - Risk 60-74 years 1-dose series) 2014 DTaP,Tdap,and Td Vaccines (2 - Td or Tdap) 04/18/2018 04/18/2008 Colorectal Cancer Screening: Colonoscopy 03/01/2022 Falls Risk Assessment 03/01/2022 Hepatitis C Screening 03/01/2022 Medicare Annual Wellness Visit 03/01/2022 Social Influencers of Health Screening 03/01/2022 Depression Screening 03/22/2024 Hypertension/CHF/CAD Annual BMP Blood Test 05/07/2024 05/07/2023 COVID-19 Vaccine ( - 2023-2 5 season) 2024 Influenza Vaccine (#1) 2024 Cholesterol Screening (Lipid Panel) 01/15/2028 01/14/2023 Abdominal [...] Test (05/07/2023) Annual BMP Blood Test abstracted Historical Provider HEALTH MAINTENANCE Final Result * Lipid panel (01/14/2023) Pathologist [facility] LDL/HDL Ratio 0 0 - 0 Triglycerides 0 0 - 0 mg/dL Cholesterol 0 0 - 0 mg/dL HDL 0 0 - 0 mg/dL LDL Cholesterol 0 0 - 0 mg/dL Blood Venous blood specimen / Unknown Historical Provider LAB BLOOD ORDERABLES Terese l Result * Abdominal Aortic Aneurysm Screen (08/02/2008) Pathologist [facility] Abdominal Aortic Aneurysm (AAA) Screening abstracted Anatomical Region Laterality Modality Other Historical Provider HEALTH MAINTENANCE Final Result from Last 3 Months or Most Recently Relevant to Health Maintenance Insurance [place] Advance Directives Documents on File Type Date Recorded 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
== END 2024-12-12 13:37 | disposition home or self-care (01) ==
LOC: HO.HCS 12:58
PROVIDERS: PCP Internal Medicine; Visit Provider Internal Medicine Cardiovascular Disease
DX: I35.0 Nonrheumatic aortic (valve) stenosis (principal); I48.0 Paroxysmal atrial fibrillation; I25.10 Atherosclerotic heart disease of native coronary artery without angina pectoris; Z95.0 Presence of cardiac pacemaker
CPT/HCPCS: 99215; G2211

== ENCOUNTER → 2024-12-12 12:57 | Outpatient (BNVA) | payer MEDICARE, MEDICAID, SELFPAY | PROVIDERS: PCP Internal Medicine; Visit Provider Internal Medicine Cardiovascular Disease | DX: Z45.018 Encounter for adjustment and management of other part of cardiac pacemaker (principal); I35.0 Nonrheumatic aortic (valve) stenosis; I48.0 Paroxysmal atrial fibrillation; I25.10 Atherosclerotic heart disease of native coronary artery without angina pectoris | CPT/HCPCS: 93005; 93280; 99212 ==

== ENCOUNTER 2024-12-14 12:43 | Day surgery (SDC) | payer MEDICARE, MEDICAID, SELFPAY ==
--- OUTSIDE RECORDS SUMMARY | 2024-12-07 14:04 | XMS_ITS | Clinical Summary ---
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 Patient is a former smoker with a 50-aygg-bfzl history. He states during ambulation he has to take very frequent breaks due to feeling winded . He continues to have some discomfort along his surgical incisional sites however he states that it is manageable. While patient was in office reviewed his most recent chest CT scan which was performed at [facility] on July 31, 2021 and shows [...] Test (05/07/2023) Annual BMP Blood Test abstracted [facility] Provider HEALTH MAINTENANCE Final Result * Lipid panel (01/14/2023) Pathologist [facility] LDL/HDL Ratio 0 0 - 0 Triglycerides 0 0 - 0 mg/dL Cholesterol 0 0 - 0 mg/dL HDL 0 0 - 0 mg/dL LDL Cholesterol 0 0 - 0 mg/dL Blood Venous blood specimen / Unknown Historical Provider LAB BLOOD ORDERABLES Terese l Result * Abdominal Aortic Aneurysm Screen (08/02/2008) Pathologist [facility] Abdominal Aortic Aneurysm (AAA) Screening abstracted Anatomical Region Laterality Modality Other Historical Provider HEALTH MAINTENANCE Final Result from Last 3 Months or Most Recently Relevant to Health Maintenance Insurance [place] Advance Directives Documents on File Type Date Recorded 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
--- NOTE | 2024-12-13 12:02 | PC.NURSE ---
Pre-Procedure instruction--spoke with pt about arrival time [address] Crain Hold tonights and 's Am dose of Eliquis. Pt understood instructions no other questions or concerns about procedure.
--- NOTE | ~2024-12-14 | US_ITS ---
EXAMINATION: US CHEST CLINICAL INFORMATION: Evaluate for left pleural effusion for possible thoracentesis. COMPARISON: None available. TECHNIQUE: Grayscale, ultrasound imaging of the left hemithorax was performed. FINDINGS: No pleural fluid was visualized in the left hemithorax. US/US chest IMPRESSION: No significant left pleural effusion. Thoracentesis was canceled. Electronically signed by: Kade Crain MD 12/14/2024 03:46 PM EDT
[2024-12-14 13:16] LABS: MANUAL DIFF FLAG NO
[2024-12-14 13:21] LABS: Hematocrit 37.9 % (42.0-52.0); Hemoglobin 12.4 g/dl (14.0-18.0); Imm Gran Abs Auto 0.09 X10*3/uL (0.00-0.03); Imm Gran Pct Auto 1.0 % (0.0-0.4); Lymphocytes Absolute Auto 1.6 X10*3/uL (1.2-4.9); Mean Corpuscular HGB Conc 32.7 g/dl (31.0-36.0); Mean Corpuscular Hemoglobin 28.1 pg (27.0-33.0); Mean Corpuscular Volume 85.7 fL (80.0-98.0); NRBC Abs Auto 0.000 X10*3/uL (0.0-0.012); NRBC Pct Auto 0.0 /100WBC (0.0-0.2); Platelet Count 228 X10*3/uL (160-400); Red Blood Count 4.42 X10*6/uL (4.60-5.80); White Blood Count 8.7 X10*3/uL (4.8-10.8)
[2024-12-14 13:25] LABS: INTERNATIONAL NORM RATIO 1.1 (0.9-1.1); Prothrombin Time 12.9 SEC (10.9-12.4)
[2024-12-14 13:33] LABS: Anion Gap 10 (12-20); Blood Urea Nitrogen 21 mg/dL (9-16); Calcium 9.3 mg/dL (8.4-10.2); Carbon Dioxide 25 mmol/L (22-29); Chloride 108 mmol/L (96-108); Estimated Glomerular Filt Rate 58; Potassium 4.4 mmol/L (3.3-5.1); Sodium 139 mmol/L (135-145)
[2024-12-14 13:35] VITALS: BMI 31.8
[2024-12-14 13:38] VITALS: BP 142/69; PULSE 75; RESP 18; TEMP 36.7; O2SAT 96
[2024-12-14 14:15] VITALS: BP 145/77; PULSE 76; RESP 11; O2SAT 97
[2024-12-14 14:20] VITALS: BP 145/83; PULSE 74; RESP 12; O2SAT 97
--- NOTE | 2024-12-14 14:47 | PC.NURSE ---
returned to PACU after procedure cancelled. IV D/Cd, tip intact, Pt dresed self and ambulatory out of hospital
== END 2024-12-14 14:53 | disposition home or self-care (01) ==
LOC: HO.SSS 12:43
PROVIDERS: Radiology Diagnostic Radiology; PCP Internal Medicine; Visit Provider Nurse Practitioner Family
DX: J90 Pleural effusion, not elsewhere classified (principal); Z53.8 Procedure and treatment not carried out for other reasons; I48.0 Paroxysmal atrial fibrillation; I48.91 Unspecified atrial fibrillation; Z95.5 Presence of coronary angioplasty implant and graft; Z95.0 Presence of cardiac pacemaker; I25.2 Old myocardial infarction; I10 Essential (primary) hypertension; J44.9 Chronic obstructive pulmonary disease, unspecified; Z79.01 Long term (current) use of anticoagulants; Z98.890 Other specified postprocedural states; Z87.891 Personal history of nicotine dependence
CPT/HCPCS: 36415; 76604; 80048; 85025; 85610; J2003

== ENCOUNTER → 2024-12-14 14:00 | Outpatient (BNV) | payer MEDICARE, MEDICAID, SELFPAY | PROVIDERS: PCP Internal Medicine; Visit Provider Radiology Diagnostic Radiology | DX: J90 Pleural effusion, not elsewhere classified (principal) | CPT/HCPCS: 76604 ==

== ENCOUNTER 2024-12-27 12:59 | Outpatient (AMB) | payer MEDICARE, MEDICAID, SELFPAY ==
[2024-12-27 13:04] VITALS: BP 136/72; PULSE 84; O2SAT 97; BMI 32.4
--- NOTE | 2024-12-27 13:04 | MHC.OFFVIS ---
Vital Signs 12/27/24 13:04 Height 6 ft Weight 239 lb BMI 32.4 BP 136/72 Blood Pressure Location Rt brachial Position Sitting Pulse 84 Pulse Source Pulse Oximeter Pulse Oximetry (%) 97 Oxygen Delivery Method Room Air Intake Visit Reasons: COPD Allergies No Known Allergies (No Known Allergies*) Allergy (Verified 12/27/24 13:06) HPI HPI COPD: Details: Shane is pleasant 69 year old, former 40 pack year smoker, quit 15 years ago with underlying mild COPD, severe aortic stenosis, HTN, atrial fibrillation s/p ablation on Eliquis, peripheral vascular disease, SVT, CHF, hyperlipidemia,CAD s/p RCA stent, h/o OR, severe XAVIER could not tolerate CPAP, s/p resection of RUL pulmonary nodule 06/2021, negative for malignancy with recurrent pleural effusions s/p thoracentesis. He has been using Trelegy as well as DuoNeb 2-3 times per day, unfortunately continues with significant dyspnea and intermittent cough with noted wheezing at night. He had chest CT 10/2024 which revealed bilateral pleural effusions L>R sent for thoracentesis, scheduled 4 weeks later and imaging prior revealed resolution of pleural effusions. Since the last visit patient has been evaluated for severe aortic stenosis with Dr. Dela Cruz last week and will be undergoing TAVR next week in hopes of improving dyspnea. He reports upcoming evaluation for Inspire device as previously could not tolerate XAVIER however awaiting until cardiac surgery complete. [facility] Medical History Paroxysmal atrial fibrillation Atrial fibrillation Atrial flutter CAD (coronary artery disease) Junctional bradycardia COVID-19 Blindness of left eye History of eye prosthesis Thyroid disease GERD (gastroesophageal reflux disease) Numbness On beta patrick at home On anticoagulant therapy Murmur PVD (peripheral vascular disease) Myocardial infarction Alcohol dependence Post laminectomy syndrome Asthma Renal stones COPD (chronic obstructive pulmonary disease) Anemia Hepatitis C Hyperlipidemia HTN (hypertension) SVT (supraventricular tachycardia) Surgical History Hx of eye surgery History of esophagogastroduodenoscopy (EGD) H/O colonoscopy S/P lobectomy of lung (~05/2021) Stented coronary artery Hx of thyroidectomy History of back surgery Hx of cardiac cath Family History Father Cancer Mother CVD (cardiovascular disease) Social History Household Members: None Housing: Apartment Are you a primary healthcare sales representative to a significant other at home: No Do you presently have visiting nurse or other home services: No Alcohol intake: current Alcohol intake frequency: former alcohol drinker Alcohol type: hard liquor Patient Tobacco Use Status: Former Tobacco user Tobacco use type: Cigarette Cigarette Packs Per Day: 1 Cigarettes Per Day: 20.0 Years Smoked: 40/ Stopped at age 54 Second Hand Smoke Exposure: No Substance Use Type: Marijuana Advance Directives Date on File: 09/09/23 service: No Review of Systems Const Denies chills, Denies excessive sweating, Denies fever(s), Denies headache(s) and Denies night sweats Eyes Denies dry eyes, Denies irritation and Denies itchy eyes ENT Reports Normal hearing present, Denies headache(s), Denies nasal congestion, Denies nasal discharge, Denies post nasal drip and Denies sore throat Card Denies chest pain, Denies chest pain at rest, Denies chest pain with activity, Denies claudication, Denies leg edema, Denies dyspnea, Denies orthopnea and Denies paroxysmal nocturnal dyspnea Resp Denies chest congestion, Denies excessive phlegm production, Denies pain on inspiration, Denies pain with cough, Denies dyspnea and Denies stridor Musc Denies myalgias Neuro Reports Normal hearing present and Denies headache(s) Endo Denies excessive sweating Torin/Lymph Denies lymphadenopathy Aller/Immun Denies itchy eyes and Denies seasonal rhinorrhea Physical Exam Vital Signs: Last Vital Signs Pulse 84 12/27/24 13:04 BP 136/72 12/27/24 13:04 Pulse Ox 97 12/27/24 13:04 Oxygen Delivery Method Room Air 12/27/24 13:04 BMI result Body Mass Index 32.4 Const General: cooperative, healthy appearing, comfortable, no acute distress, well developed and alert Nutritional Appearance: obese Orientation/consciousness: patient oriented x3 Limitations: no limitations HEENT Head: Yes normal to inspection, Yes normocephalic and Yes atraumatic Ears: hearing grossly normal bilaterally and external ears normal Neck Neck: Yes normal visual inspection and Yes no lymphadenopathy Lymphatic: no lymphadenopathy noted Chest Chest palpation & inspection: normal inspection of the chest Resp Effort & Inspection: normal respiratory effort, able to speak in complete sentences, no audible wheezes, no cough, no stridor, not tachypneic, no tripod positioning and no use of accessory muscles Auscultation: diminished lung sounds Cardio Jugular venous distension: no JVD Rate: regular rate Rhythm: regular rhythm Heart sounds: Murmur heart sound present Skin Other: warm, dry General skin exam: no rashes or lesions noted Neuro General: patient oriented x3 Cranial nerves: Yes Normal hearing present Cognition (Neuro): normal cognition Gait exam (Neuro): Normal gait present Extrem General: Yes normal to inspection, Yes capillary refill normal, Yes no clubbing, cyanosis or edema and Yes no pedal edema Psych Appearance: grossly normal and well kempt Speech and movement: Normal speech and movement present and Clear speech present Affect: normal affect Attitude: cooperative Thought process: Normal thought process present Thought content: Normal thought content present Insight: Good insight present (Psych) Judgement: Good judgement present (Psych) Assessment & Plan Assessment & Plan (1) COPD (chronic obstructive pulmonary disease): Code(s): J44.9 - Chronic obstructive pulmonary disease, unspecified Category: Medical (2) Obstructive sleep apnea: Code(s): G47.33 - Obstructive sleep apnea (adult) (pediatric) Category: Medical (3) Personal history of tobacco use: Code(s): Z87.891 - Personal history of nicotine dependence Category: Social Hx (4) Nocturnal hypoxemia: Code(s): G47.34 - Idiopathic sleep related nonobstructive alveolar hypoventilation Category: Medical Plan Shane reports worsening dyspnea on exertion over the last few months and is scheduled for TAVR next week to address severe aortic stenosis. Patient likely has some contribution from deconditioning as well. At this time, encouraged patient to continue Trelegy and DuoNeb PRN. He also has severe XAVIER and has upcoming appt with ENT to evaluate for Inspire device, as he could not previously tolerate CPAP/BiPAP therapy. All questions were answered and patient is in agreement of plan. Will follow up in 6 weeks or sooner if needed. Coding Level of Care Code Est Pt Level 4 (50781) Diagnoses COPD (chronic obstructive pulmonary disease) J44.9 Obstructive sleep apnea G47.33 Personal history of tobacco use Z87.891 Nocturnal hypoxemia G47.34
== END 2024-12-27 13:22 | disposition home or self-care (01) ==
LOC: HO.HPSW 12:59
PROVIDERS: PCP Internal Medicine; Visit Provider Nurse Practitioner Family
DX: J44.9 Chronic obstructive pulmonary disease, unspecified (principal); G47.33 Obstructive sleep apnea (adult) (pediatric); Z87.891 Personal history of nicotine dependence; G47.34 Idiopathic sleep related nonobstructive alveolar hypoventilation
CPT/HCPCS: 99214

== ENCOUNTER → 2024-12-27 12:59 | Outpatient (BNVA) | payer MEDICARE, MEDICAID, SELFPAY | PROVIDERS: PCP Internal Medicine; Visit Provider Nurse Practitioner Family | DX: J44.9 Chronic obstructive pulmonary disease, unspecified (principal); G47.33 Obstructive sleep apnea (adult) (pediatric); Z87.891 Personal history of nicotine dependence; G47.34 Idiopathic sleep related nonobstructive alveolar hypoventilation | CPT/HCPCS: 99212 ==

== ENCOUNTER 2025-01-12 12:43 | Outpatient (REF) | payer MEDICARE, MEDICAID, SELFPAY ==
--- NOTE | 2025-01-12 12:51 | EMG_ITS ---
Chief complaint: Right hand numbness Reason for referral: Evaluate for Carpal Tunnel Syndrome Referred by: Robert BALBUENA Procedure done: Right upper extremity NCS/EMG Precautions and/or limitations: Pacemaker On Eliquis Recent aortic valve replacement surgery, discharged from [facility] 3 days ago. Surgical scar appears healed. No signs of infection. The limb temperature was monitored continuously and remained between 32-36 degrees C during the performance of the NCS. Ulnar motor NCS was performed with moderate elbow flexion between 70-90 degrees, with across-elbow distance of 10 cm. Nerve Conduction Studies Anti Sensory Summary Table ?Stim Site NR Onset (ms) Norm Onset (ms) Peak (ms) Norm Peak (ms) O-P Amp (?V) Norm O-P Amp Site1 Site2 Delta-0 (ms) Dist (cm) Omkar (m/s) Norm Omkar (m/s) Right DorsCutan Anti Sensory (Dorsum 5th MC) Wrist NR Wrist Dorsum 5th MC 0.0 Right Median Anti Sensory (2nd Digit) Wrist NR <3.6 >10 Wrist 2nd Digit 14.0 Right Radial Anti Sensory (Thumb) Forearm ? 1.8 2.5 <3.1 12.3 Forearm Thumb 1.8 0.0 Right Ulnar Anti Sensory (5th Digit) Wrist NR <3.7 >15.0 Wrist 5th Digit 14.0 Motor Summary Table ?Stim Site NR Onset (ms) Norm Onset (ms) O-P Amp (mV) Norm O-P Amp iAmp (mV) Amp (1st) (%) Site1 Site2 Delta-0 (ms) Dist (cm) Omkar (m/s) Norm Omkar (m/s) Right Median Motor (Abd Poll Brev) Wrist ? 5.9 <3.9 5.2 >4.5 6.4 100.0 Elbow Wrist 6.3 23.0 37 >45 Elbow ? 12.2 1.5 1.9 28.8 Right Ulnar Motor (Abd Dig Minimi) Wrist ? 3.5 <3.0 5.5 >5 6.5 100.0 B Elbow Wrist 5.1 20.5 40 >45 B Elbow ? 8.6 4.6 5.6 83.6 A Elbow B Elbow 1.8 10.0 56 >45 A Elbow ? 10.4 4.5 5.6 81.8 Right Ulnar (FDI) Motor (FDI) Wrist ? 4.9 <3.0 3.1 >5 3.8 100.0 B Elbow Wrist 4.9 20.0 41 >45 B Elbow ? 9.8 4.6 5.7 148.4 A Elbow B Elbow 1.8 10.0 56 >45 A Elbow ? 11.6 4.2 5.4 135.5 EMG ?Side Muscle Nerve Root Ins Act Fibs Psw Amp Dur Poly Recrt Int Pat Comment Right 1stDorInt Ulnar C8-T1 Nml Nml Nml Incr Nml 0 Nml Complete Right FlexCarpiUln Ulnar C8,T1 Nml Nml Nml Nml Nml 0 Nml Complete Right Biceps Musculocut C5-6 Nml Nml Nml Nml Nml 0 Nml Complete Right Triceps Radial C6-7-8 Nml Nml Nml Nml Nml 0 Nml Complete Right Deltoid Axillary C5-6 Nml Nml Nml Nml Nml 0 Nml Complete FINDINGS: Right median motor nerve showed prolonged distal latency, normal amplitude and slow conduction velocity. Right median sensory nerve absent response. Right ulnar motor nerve, recording at ADM, showed prolonged distal latency, normal amplitude and slow distal conduction velocity. Right ulnar motor nerve, recording at FDI, showed prolonged distal latency, small amplitude and slow distal conduction velocity. Right ulnar sensory nerve, digit 5, showed absent response. Right dorsal ulnar cutaneous sensory nerve showed absent response. Right radial sensory nerve was within normal. Concentric needle EMG was performed in selected muscles of the right upper extremity. Study revealed signs of electric abnormalities as shown in the table above. Right FDI shows increased duration and amplitude. IMPRESSION: 1. This is an abnormal study. 2. There is electrodiagnostic evidence for right moderate-SEVERE median neuropathy at wrist, consistent with Carpal Tunnel Syndrome. 3. There is electrodiagnostic evidence for right chronic ulnar neuropathy, I suspect is proximal or at the elbow. 4. There is no electrodiagnostic evidence for brachial plexopathy or cervical radiculopathy. CLINICAL COMMENT: Comparison to EMG done by Dr. Madison, 08/30/2024, that reported moderate right median neuropathy across carpal tunnel. Similar findings seen on median nerve today. Similar findings seen on right ulnar nerve, although it was not mentioned on his report. Needle EMG on upper extremity muscles were not performed by Dr. Madison. Today's needle EMG to RUE showed chronic reinnervation changes on right FDI, supportive for findings of ulnar neuropathy. Thank you for your kind referral. Monika Ulloa MD, BENIGNO Board Certified, [place] Board of Physical Medicine and Rehabilitation (ABPMR) Board Certified, [place] Board of Electrodiagnostic Medicine (ABEM) CODIN [id number], 1 extremity MTDD
[2025-01-12 13:10] LABS: MANUAL DIFF FLAG NO
[2025-01-12 13:47] LABS: Hematocrit 34.9 % (42.0-52.0); Hemoglobin 11.1 g/dl (14.0-18.0); Imm Gran Abs Auto 0.26 X10*3/uL (0.00-0.03); Imm Gran Pct Auto 2.4 % (0.0-0.4); Lymphocytes Absolute Auto 1.5 X10*3/uL (1.2-4.9); Mean Corpuscular HGB Conc 31.8 g/dl (31.0-36.0); Mean Corpuscular Hemoglobin 27.8 pg (27.0-33.0); Mean Corpuscular Volume 87.3 fL (80.0-98.0); NRBC Abs Auto 0.000 X10*3/uL (0.0-0.012); NRBC Pct Auto 0.0 /100WBC (0.0-0.2); Platelet Count 186 X10*3/uL (160-400); Red Blood Count 4.00 X10*6/uL (4.60-5.80); White Blood Count 10.9 X10*3/uL (4.8-10.8)
--- OUTSIDE RECORDS SUMMARY | 2025-01-12 14:41 | XMS_ITS | Clinical Summary ---
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 Patient is a former smoker with a 21-pivl-dyex history. He states during ambulation he has to take very frequent breaks due to feeling winded . He continues to have some discomfort along his surgical incisional sites however he states that it is manageable. While patient was in office reviewed his most recent chest CT scan which was performed at [facility] on July 31, 2021 and [...] Overview (02/27/2024): Blind in left eye Immunizations Immunization Administration Dates Next Due Tdap Tetanus diptheria acell ular pertussis (Boostrix; Adacel) 7yo and older 04/18/2008 Surgical History Surgery Date Site/Laterality Comments OTHER SURGICAL HISTORY PROCEDURE: HISTORICAL SUBTOTAL THYROIDECTOMY; COMMENT: Benign thyroid nodule COLONOSCOPY 06/05/08 PROCEDURE: MA COLONOSCOPY STOMA DX INCLUDING COLLJ SPEC SPX; COMMENT: Up to cecum, ascending polyp removed:Adenomatous, Hepatic flexure polyp removed:TA, Sigmoid polyp removed:Hyperplastic. 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
[2025-01-12 14:46] LABS: Anion Gap 11 (12-20); Blood Urea Nitrogen 14 mg/dL (9-16); Calcium 9.5 mg/dL (8.4-10.2); Carbon Dioxide 24 mmol/L (22-29); Chloride 110 mmol/L (96-108); Estimated Glomerular Filt Rate > 60; Potassium 4.5 mmol/L (3.3-5.1); Sodium 140 mmol/L (135-145)
== END 2025-01-12 12:44 | disposition home or self-care (01) ==
LOC: HO.NEURO 12:43
PROVIDERS: PCP Internal Medicine; Referring Provider Internal Medicine Cardiovascular Disease
DX: R20.0 Anesthesia of skin (principal); R20.2 Paresthesia of skin
CPT/HCPCS: 36415; 80048; 85025; 95886; 95909

== ENCOUNTER → 2025-01-12 12:51 | Outpatient (BNV) | payer MEDICARE, MEDICAID, SELFPAY | PROVIDERS: PCP Internal Medicine; Referring Provider Internal Medicine Cardiovascular Disease; Visit Provider Physical Medicine & Rehabilitation | DX: G56.11 Other lesions of median nerve, right upper limb (principal); G56.21 Lesion of ulnar nerve, right upper limb | CPT/HCPCS: 95886; 95909 ==

== ENCOUNTER → 2025-01-13 23:59 | Outpatient (BNV) | payer MEDICARE, MEDICAID, SELFPAY ==
--- NOTE | 2025-01-15 15:45 | MHC.OFFVIS ---
Intake Visit Reasons: Remote device check- [employer] Allergies No Known Allergies (No Known Allergies*) Allergy (Verified 12/27/24 13:06) PFS Medical History Paroxysmal atrial fibrillation Atrial fibrillation Atrial flutter CAD (coronary artery disease) Junctional bradycardia COVID-19 Blindness of left eye History of eye prosthesis Thyroid disease GERD (gastroesophageal reflux disease) Numbness On beta patrick at home On anticoagulant therapy Murmur PVD (peripheral vascular disease) Myocardial infarction Alcohol dependence Post laminectomy syndrome Asthma Renal stones COPD (chronic obstructive pulmonary disease) Anemia Hepatitis C Hyperlipidemia HTN (hypertension) SVT (supraventricular tachycardia) Surgical History S/P TAVR (transcatheter aortic valve replacement) Hx of eye surgery History of esophagogastroduodenoscopy (EGD) H/O colonoscopy S/P lobectomy of lung (~05/2021) Stented coronary artery Hx of thyroidectomy History of back surgery Hx of cardiac cath Family History Father Cancer Mother CVD (cardiovascular disease) Social History Household Members: None Housing: Apartment Are you a primary care consultant to a significant other at home: No Do you presently have visiting nurse or other home services: No Alcohol intake: current Alcohol intake frequency: former alcohol drinker Alcohol type: hard liquor Patient Tobacco Use Status: Former Tobacco user Tobacco use type: Cigarette Cigarette Packs Per Day: 1 Cigarettes Per Day: 20.0 Years Smoked: 40/ Stopped at age 54 Second Hand Smoke Exposure: No Substance Use Type: Marijuana Advance Directives Date on File: 09/09/23 service: No Office Procedures Cardiac Device Check Cardiac Device Check Details: Remote pacemaker report generated 01/13/2025. Pacemaker function is adequate. [id number] Cardiac Device Interrogation, pacemaker Procedure code (CPT) selection complete Assessment & Plan Assessment & Plan (1) Cardiac pacemaker in situ: Code(s): Z95.0 - Presence of cardiac pacemaker Category: Medical Plan: See above Coding Level of Care Code Procedure Only Diagnoses Cardiac pacemaker in situ Z95.0 CPT Codes Cardiac Device Check - Cardiac Device 12: [id number] Cardiac Device Interrogation, pacemaker ([id number])
== END ==
PROVIDERS: PCP Internal Medicine; Visit Provider Internal Medicine Cardiovascular Disease
DX: Z45.018 Encounter for adjustment and management of other part of cardiac pacemaker (principal)
CPT/HCPCS: 93294

== ENCOUNTER 2025-01-15 08:43 | Outpatient (AMB) | payer MEDICARE, MEDICAID, SELFPAY ==
--- NOTE | 2025-01-15 08:51 | MHC.OFFVIS ---
Vital Signs 01/15/25 08:52 Height 6 ft Weight 238 lb 1.588 oz BMI 32.3 BP 120/62 Blood Pressure Location Lt brachial Position Sitting Pulse 81 Pulse Source Pulse Oximeter Intake Visit Reasons: 2 week f/u tavr Intake Note: 2wk f/up- TAVR Asset Protection Agent Required: No Accompanied by: Self / Same As Patient Allergies No Known Allergies (No Known Allergies*) Allergy (Verified 12/27/24 13:06) Medication List - Last Reconciled 01/15/25 by Quinn Smyth MD acetaminophen (Tylenol Extra Strength) 500 - 1,000 mg (1 - 2 x 500 mg) PO QID PRN albuterol sulfate 90 mcg/actuation 2 puffs inhalation QID PRN allopurinol 100 mg PO DAILY amiodarone 200 mg PO DAILY amlodipine 10 mg PO DAILY apixaban (Eliquis) 5 mg PO BID atorvastatin 40 mg PO DAILY cholecalciferol (vitamin D3) (Vitamin D3) 25 mcg PO DAILY cyanocobalamin (vitamin B-12) (Vitamin B-12) 500 mcg PO DAILY famotidine 40 mg PO BID ferrous sulfate (FeroSul) 325 mg PO Q OTHER DAY sojpzmykojj-axmvkjkhm-marrnmzn 200-62.5-25 mcg (Trelegy Ellipta) 1 ea inhalation DAILY gabapentin 600 mg PO BID ipratropium-albuterol 0.5 mg-3 mg(2.5 mg base)/3 mL 3 mL inhalation TID PRN magnesium oxide 400 mg PO BIDWM prednisone 10 mg PO DIRECTED HPI Comments Details: 70-year-old gentleman who is here for follow-up. He has background history of COPD, atrial tachycardia, atrial fibrillation status post AV spencer ablation and permanent pacemaker placement and depression. He had echocardiography done on September 19 add [facility] where his ejection fraction was 55-60%, moderately calcified aortic valve, severe aortic valve stenosis with peak gradient 65 mm Hg and mean gradient 41 mm Hg with but aortic valve area of 0.9 cm2. His dimensionless index was 0.25. He subsequently had cardiac catheterization which did not show any significant coronary disease and his calculated aortic valve area was 1.22 cm2 and mean gradient by [place] was 36 mm Hg. He has significant fatigue and dyspnea with activities. I think his fatigue is out of proportion and I think depression is playing some role in that. During cardiac catheterization he was noticed to have background atrial tachycardia which we tried to do overdrive pacing for but were unsuccessful. Subsequently he underwent cardioversion for that and is currently on amiodarone but his symptoms have not changed after cardioversion for atrial tach. He is taking apixaban for anticoagulation for atrial fibrillation. 01/15/25: Here for follow-up. He underwent transcatheter aortic valve replacement mid December 2024. He had severe peripheral vascular disease and procedure was done from the left subclavian approach. He did very well and has significant improvement in his exercise capacity. He is saying that he was able to walk all the way into the hospital today from car park without any shortness of breath. He said previously he will have to stop twice during this distance. He is still has some soreness on the left subclavian access site which is healing well. He also has an appointment with surgery today. [facility] Medical History Paroxysmal atrial fibrillation Atrial fibrillation Atrial flutter CAD (coronary artery disease) Junctional bradycardia COVID-19 Blindness of left eye History of eye prosthesis Thyroid disease GERD (gastroesophageal reflux disease) Numbness On beta patrick at home On anticoagulant therapy Murmur PVD (peripheral vascular disease) Myocardial infarction Alcohol dependence Post laminectomy syndrome Asthma Renal stones COPD (chronic obstructive pulmonary disease) Anemia Hepatitis C Hyperlipidemia HTN (hypertension) SVT (supraventricular tachycardia) Surgical History S/P TAVR (transcatheter aortic valve replacement) Hx of eye surgery History of esophagogastroduodenoscopy (EGD) H/O colonoscopy S/P lobectomy of lung (~05/2021) Stented coronary artery Hx of thyroidectomy History of back surgery Hx of cardiac cath Family History Father Cancer Mother CVD (cardiovascular disease) Social History Household Members: None Housing: Apartment Are you a primary managed care nurse to a significant other at home: No Do you presently have visiting nurse or other home services: No Alcohol intake: current Alcohol intake frequency: former alcohol drinker Alcohol type: hard liquor Patient Tobacco Use Status: Former Tobacco user Tobacco use type: Cigarette Cigarette Packs Per Day: 1 Cigarettes Per Day: 20.0 Years Smoked: 40/ Stopped at age 54 Second Hand Smoke Exposure: No Substance Use Type: Marijuana Advance Directives Date on File: 09/09/23 service: No Review of Systems Const Denies chills, Denies fatigue, Denies fever(s), Denies frequent falls, Denies weakness, Denies weight gain and Denies weight loss ENT Denies dizziness Card Denies chest pain, Denies leg edema, Denies lightheadedness, Denies palpitations, Denies dyspnea and Denies dyspnea on exertion Resp Denies cough, Denies dyspnea and Denies dyspnea on exertion GI Denies hematochezia Musc Denies abnormal gait, Denies muscle weakness, Denies numbness, Denies radiating pain into limb and Denies tingling Neuro Denies abnormal gait, Denies dizziness, Denies frequent falls, Denies numbness, Denies tingling and Denies weakness Endo Denies fatigue and Denies palpitations Physical Exam Vital Signs: Last Vital Signs Pulse 81 01/15/25 08:52 BP 120/62 01/15/25 08:52 BMI result Body Mass Index 32.3 GENERAL APPEARANCE: in no acute distress, pleasant. NECK: no carotid bruit, no jugular venous distention. SKIN: Left subclavian access site-healing well. HEART: Mild systolic murmur aortic area, regular rate and rhythm. LUNGS: clear to auscultation bilaterally. ABDOMEN: soft, nontender. EXTREMITIES: no edema. PERIPHERAL PULSES: equal. NEUROLOGIC: No gross deficits, AAO X 3 Assessment & Plan Assessment & Plan (1) Aortic stenosis: Code(s): I35.0 - Nonrheumatic aortic (valve) stenosis Category: Medical (2) Paroxysmal atrial fibrillation: Code(s): I48.0 - Paroxysmal atrial fibrillation Category: Medical (3) Status post transcatheter aortic valve replacement (TAVR) using bioprosthesis: Code(s): Z95.3 - Presence of xenogenic heart valve Category: Surgical Plan Pleasant 70 year gentleman who is here for follow-up. He had severe aortic valve stenosis underwent left subclavian access transcatheter aortic valve replacement with a Shakira S3 well. He has done very well after that. He is exercising and has no significant dyspnea. I have advised him to do the cardiac rehabilitation which she plans to start soon. He is also scheduled to see the Cardiothoracic surgeon today. He has some soreness at the site but the wound is healing quite well. Blood pressure well controlled. He will have echocardiography had 1 month. He will follow-up with us at 1 month and at 1 year. He will continue to follow up with Dr. Em in the interim. I have explained to the patient that he has a prosthetic valve now and any dental work we will require antibiotic prophylaxis. Thank you for allowing me to participate in the care of your patient. Please feel free to contact me if you have any questions. Coding Level of Care Code Est Pt Level 4 (39232) Diagnoses Aortic stenosis I35.0 Paroxysmal atrial fibrillation I48.0 Status post transcatheter aortic valve replacement (TAVR) using bioprosthesis Z95.3
[2025-01-15 08:52] VITALS: BP 120/62; PULSE 81; BMI 32.3
--- OUTSIDE RECORDS SUMMARY | 2025-01-15 09:14 | XMS_ITS | Data Portability ---
Author Organization [place] - [facility], Allergy Address [address] [address] Care Team Providers Care Forger Helper Name Role Phone OLIVIA GAMING Primary Care Provider Assessment Encounter Date Assessment Date Assessment LastModified by Organization Details LastModified Time 11/30/2024 11/30/2024 The patient has a history of moderate to severe sleep apnea and has been unable to tolerate CPAP therapy. Inspire surgery was discussed as a potential treatment option. The procedure involves two incisions, one below the jawline on the right side and one below the collarbone on the right side, to implant a stimulator and generator that work to control tongue movement during sleep. Prior to determining candidacy for Inspire surgery, the patient will undergo drug-induced sleep endoscopy to evaluate the pattern of throat collapse under anesthesia. If the collapse pattern is suitable, Inspire surgery may be offered. The patient was educated on the gradual activation process of the device post-surgery and the timeline for achieving effective results. The patient was instructed to contact Naz to schedule the sleep endoscopy and follow up via telehealth to review the results and discuss further steps. [email or web address] Not available 11/30/2024 11:54:18 Plan of Treatment Reminders Order Date Submit Date Provider Last Modified By Organization Details Last Modified Time Details Appointments SURGERY 60 2024 12:00P M SIMON FRY MD Not available Not available Not available Telehealt h 2024 11:45A M SIMON FRY MD Not available Not available Not available Lab None recorded. Referral None recorded. Procedures drug-jm cait sleep endoscopy (SURG) 2024 025 [email or web address] Not available 11/30/2024 16:33:33 Surgeries None recorded. Imaging None recorded. Medication Orders None recorded. Patient TargetsNo targets recorded. Patient Instructions Encounter Date Encounter Id Patient Instructions Last Modified By Organization Details Last Modified Time 11/30/2024 [id number] Contact Naz to schedule drug-induced sleep endoscopy. Follow up via telehealth to review endoscopy results and discuss candidacy for Inspire surgery. [email or web address] Not available 11/30/2024 11:54:18 Please note: Parts of this encounter note have been generated by AI based on audio conversation. Patient consent was required prior to utilizing this technology. Content review was required prior to finalizing the note. [email or web address] Not available 11/30/2024 11:54:18 Reason for Referral None Reported. Results Created Date Observation Date Name Description Value Unit Range Abnormal Flag Note LastModifiedBy Organization Detail LastModifiedTime 10/11/1912/20/2023 sleep study , diagn ostic (PROC ) No observ ation record ed. [facility] [address] [place] [address], [id number], 10/10/2024 16:54:59 10/11/1912/20/2023 sleep study , diagn ostic (PROC ) No observ ation record ed. [email or web address] Not Available 09/20 15:50:47 Result Notes None recorded. Problems Name Problem SNOMED Code Status Onset Date Resolution Date Notes Provider Name and Address Organization Details Recorded Time Impacted cerumen 21730624 Active 2014 Impacted cerumen; Note: Date Diagnosed: 05/09/2014 9:29 AM (380.4) Not Available [facility] 4 02:21:57 Sensorine ural hearing loss of bilateral ears 951440375 Active 2014 Sensorineu ral HL, bilateral; Note: Date Diagnosed: 05/09/2014 9:52 AM (389.18) Not Available [facility] 4 02:22:01 Tinnitus 28728016 Active 2014 Tinnitus, unspecifie d; Note: Date Diagnosed: 05/09/2014 9:29 AM (388.30) Not Available [facility] 4 02:21:56 Obstructi ve sleep apnea syndrome 97472068 Active 2024 SIMON FRY MD [address] [facility],[place] [address], [facility] [place], [address] , [facility] - [facility] 11:55:28 Enlargeme nt of tongue 04985909 Active 2024 MORRIS SIMMS MD [address] [facility],[place] [address], [facility] [place], [address] , [facility] 5 15:18:42 Problem Notes None recorded. Procedures Surgical History Date Name Laterality Status Provider Name and Address Organization Details Recorded Time 10/10/2024 FFL_RE completed MORRIS SIMMS MD [address] [facility],[place] [address], [place], [address], [facility] 10/10/2024 15:11:24 Imaging Results None recorded. Procedure Notes None recorded. Medical Equipment None Reported. Allergies No known drug allergies Medications Name Sig Start Date Stop Date Status Note LastModified by Organization Details LastModified Time atorvasta tin 40 mg tablet TAKE 1 TABLET BY MOUTH ONCE DAILY active Not Available Not Available No t Available acetamino phen 325 mg tablet TAKE 3 TABLETS BY MOUTH EVERY 8 HOURS FOR 10 DAYS . DO NOT EXCEED 4000MG PER 24 HOURS 11/30 completed Not Available Not Available Not Available prednison e 10 mg tablet TAKE 2 TABLETS BY MOUTH TWICE DAILY FOR 4 DAYS WITH BREAKFAS T. THEN TAKE 1 TABLET TWICE DAILY FOR 3 DAYS WITH BREAKFAS T, THEN STOP. 11/30 completed Not Available Not Available Not Available gabapenti n 600 mg tablet TAKE 1 TABLET BY MOUTH THREE TIMES DAILY active Not Available Not Available No t Available ipratropi um 0.5 mg-albute rol 3 mg (2.5 mg base)/3 mL nebulizat ion soln USE 3 ML IN NEBULIZE R THREE TIMES DAILY NEEDED FOR SHORTNES S OF BREATH FOR WHEEZING active Not Available Not Available No t Available tizanidin e 2 mg tablet TAKE 1 TABLET BY MOUTH EVERY 8 HOURS NEEDED FOR MUSCLE SPASM. DO NOT EXCEED 3 DOSES DAILY. active Not Available Not Available No t Available famotidin e 40 mg tablet TAKE 1 TABLET BY MOUTH TWICE DAILY active Not Available Not Available No t Available lovastati n 40 mg tablet active Medicati on ID: [id number] Du ration Value: 30 Brand Name: lovastat in Send Method: E-Prescr ibed Sub s Allowed: subs OK Medic ationGen ericName : lovastat in Not Available Not Available Not Available allopurin ol 100 mg tablet TAKE 2 TABLETS BY MOUTH ONCE DAILY active Not Available Not Available No t Available magnesium oxide 400 mg (241.3 mg magnesium ) tablet TAKE 1 TABLET BY MOUTH ONCE DAILY active Not Available Not Available No t Available amlodipin e 10 mg tablet TAKE 1 TABLET BY MOUTH ONCE DAILY active Not Available Not Available No t Available metoprolo l tartrate 50 mg tablet 11/30 completed Medicati on ID: [id number] Du ration Value: 30 Brand Name: metoprol ol tartrate Send Method: E-Prescr ibed Sub s Allowed: subs OK Medic ationGen ericName : metoprol ol tartrate Not Available Not Available Not Available gabapenti n 300 mg capsule 11/30 completed Medicati on ID: [id number] Du ration Value: 30 Brand Name: gabapent in Send Method: E-Prescr ibed Sub s Allowed: subs OK Medic ationGen ericName : gabapent in Not Available Not Available Not Available furosemid e 20 mg tablet TAKE 1 TABLET BY MOUTH EVERY DAY 11/30 completed Not Available Not Available Not Available albuterol sulfate HFA 90 mcg/actua tion aerosol inhaler Inhale 2 puffs every 4 hours by inhalati on route. active Not Available Not Available No t Available colchicin e 0.6 mg tablet TAKE 1 TABLET BY MOUTH TWICE DAILY NEEDED FOR GOUT ATTACKS active Not Available Not Available No t Available lisinopri l 40 mg tablet 11/30 completed Medicati on ID: [id number] Du ration Value: 30 Brand Name: lisinopr il Send Method: E-Prescr ibed Sub s Allowed: subs OK Medic ationGen ericName : lisinopr il Not Available Not Available Not Available amoxicill in 875 mg-potass ium clavulana te 125 mg tablet TAKE 1 TABLET BY MOUTH EVERY 12 HOURS 10/10 completed Not Available Not Available Not Available Vitamin B-12 1,000 mcg tablet TAKE 1 TABLET BY MOUTH IN THE MORNING active Not Available Not Available No t Available FeroSul 325 mg (65 mg iron) tablet TAKE 1 TABLET BY MOUTH EVERY OTHER DAY active Not Available Not Available No t Available oxycodone 10 mg tablet TAKE 1 TABLET BY MOUTH EVERY 4 HOURS NEEDED FOR SEVERE PAIN. TAKE IF YOUR PAIN IS NOT CONTROLL ED WITH OVER THE COUNTER PAIN MEDICATI ONS 11/30 completed Not Available Not Available Not Available Eliquis 5 mg tablet TAKE 1 TABLET BY MOUTH TWICE DAILY active Not Available Not Available No t Available Trelegy Ellipta 200 mcg-62.5 mcg-25 mcg powder for inhalatio n INHALE 1 PUFF BY MOUTH ONCE DAILY active Not Available Not Available No t Available Vitals Date Recorded Body height Body mass index (BMI) Body weight Provider Name and Address Organization Details Last Updated DateTime 10/10/2024 182.88 cm 31.9 kg/m2 702155.21 g Cristobal Morales [place] - [facility] 10/10/2024 15:02:59 Date Recorded Body height Body mass index (BMI) Body weight Provider Name and Address Organization Details Last Updated DateTime 11/30/2024 182.88 cm 31.9 kg/m2 769553.21 g TIFFANIE ARMENDARIZ [place] - [facility] 11/30/2024 11:28:59 Social History None recorded. Functional Status None recorded. Mental Status None recorded. Family History Nothing Reported. Medical History No medical history recorded. Past Encounters Encounter ID Performer Location Encounter Start Date Encounter Closed Date Diagnosis/Indication Diagnosis SNOMED-CT Code Diagnosis ICD10 Code Diagnosis IMO Codes Diagnosis Note [id number] MORRIS SIMMS MD [facility] [address] [address] 10/10/2024 14:42:53 10/10/2024 15:44:39 Obstructive sleep apnea syndrome 54685948 G47.33 [id number] He has macrogloss ia contributi ng. I reviewed his PSG which showed an AHI of 30.5 and an O2 cal of 78%. See below. He is interested in a consultati on for an inspire implant. Enlargement of tongue 25 628862 Q38.2 7922 I discussed options besides CPAP including a dental appliance and inspire implant. He is interested in an inspire implant and based on his numbers he seems to meet criteria. I will refer him to Dr. Fry for evaluation . [id number] SIMON FRY MD [facility] [address] [place] [address] 11/30/2024 11:13:08 11/30/2024 11:54:33 Obstructive sleep apnea syndrome 71723143 G47.33 06656 AHI 30, SMS Review of sleep study shows patient has moderate to severe obstructiv e sleep apnea. Further screening to assess candidacy for the inspire hypoglossa l nerve stimulator with a drug-induc ed sleep endoscopy was offered. This examinatio n is performed under anesthesia to help stimulate the onset of obstructiv e sleep apnea events. This will be monitored with a small camera in the back of the nose. Occasional ly it is determined that the pattern of collapse in their pharynx would not be helped by the inspire hypoglossa l nerve stimulator implant and it is appropriat e to screen for these patients to avoid unnecessar y surgical procedures . Risks of this procedure beyond the anesthesia medication s that are given include possible bleeding from the nose where the instrument s are passed. No new prescripti ons are needed after the procedure. We will review results with a telehealth call laci hagan 1 week after the procedure. Health Concerns Section Related Observation LastModified by Organization Detai ls LastModified Time None Recorded Concern Status LastModified by Organization Details LastModified Time None Recorded Advance Directives Directive None Recorded Payers Insurance Date Sequence Insurance Name Policy Number Policy Bryant Covered Member ID Bryant Member ID Guarantor Name 10/10/2024 1 [place] [employer] Shane Nichole [id number] Shane Nichole 11/30/2024 2 [place] [facility] Shane Nichole [id number] Shane Nichole 11/30/2024 1 [place] (MEDICARE REPLACEMENT PPO) [id number] Shane Nichole [id number] Shane Nichole Notes Date Note Type Note Provider Name and Address Organization Details Recorded Time 10/10/2024 text/html ROS as noted in the HPI He has a history of XAVIER. He does not tolerate CPAP due to claustrophobia. He does elevate his bed. He is tired during the day. He is currently having cardiac problems and said he has a valve replacement is pending. MORRIS SIMMS MD [address] [place] [address],[place] [address], [place], [address], [place] - [facility] 10/10/2024 15:44:30 11/30/2024 text/html XAVIER PV 10/10/24 XAVIER Simms, refer for INSPIRE consult, FOL normal 12/20/23 Home PSG SMS BMI 31 AHI 30 central and mixed events <25% CPAP trial - intolerant from excessive movement and claustrophobia from choking on mask. 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 He reports difficulty tolerating CPAP therapy both during hospitalization and at home, citing discomfort and concerns about choking. He has a history of a home sleep study conducted in November and mentions a prior sleep study performed years ago. He denies any surgeries on his throat or tonsils but notes a history of partial thyroidectomy. He also reports a history of gallbladder removal and pneumonia, which occurred during a hospitalization. His weight has fluctuated, with a recent decrease following his hospitalization. He has a history of controlled hypertension managed with medications, a blocked artery awaiting surgical intervention, and a prior heart attack. He denies any history of strokes. 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 SIMON FRY MD [address] [facility] [address], [place], [address], [place] - [facility] 11/30/2024 11:55:35
--- OUTSIDE RECORDS SUMMARY | 2025-01-15 09:14 | XMS_ITS | Clinical Summary ---
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 Patient is a former smoker with a 26-sexf-oocs history. He states during ambulation he has [...] COMMENT: Benign thyroid nodule COLONOSCOPY 06/05/08 PROCEDURE: IA COLONOSCOPY STOMA DX INCLUDING COLLJ SPEC SPX; COMMENT: Up to cecum, ascending polyp removed:Adenomatous, Hepatic flexure polyp removed:TA, Sigmoid polyp removed:Hyperplastic. 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
== END 2025-01-15 09:08 | disposition home or self-care (01) ==
LOC: HO.HCS 08:44
PROVIDERS: PCP Internal Medicine; Visit Provider Internal Medicine Cardiovascular Disease
DX: I35.0 Nonrheumatic aortic (valve) stenosis (principal); I48.0 Paroxysmal atrial fibrillation; Z95.3 Presence of xenogenic heart valve
CPT/HCPCS: 99214

== ENCOUNTER → 2025-01-15 08:43 | Outpatient (BNVA) | payer MEDICARE, MEDICAID, SELFPAY | PROVIDERS: PCP Internal Medicine; Visit Provider Internal Medicine Cardiovascular Disease | DX: I48.0 Paroxysmal atrial fibrillation (principal); I35.0 Nonrheumatic aortic (valve) stenosis; Z95.3 Presence of xenogenic heart valve | CPT/HCPCS: 99212 ==

== ENCOUNTER 2025-02-09 07:00 | Outpatient (RCR) | payer MEDICARE, OTHER, SELFPAY | END 2025-02-23 06:23 | disposition home or self-care (01) | LOC: HO.CR 07:00 | PROVIDERS: PCP Internal Medicine; Visit Provider Internal Medicine Cardiovascular Disease | DX: Z98.61 Coronary angioplasty status (principal); Z95.2 Presence of prosthetic heart valve | CPT/HCPCS: 93798 ==

== ENCOUNTER → 2025-02-12 08:41 | Outpatient (REF) | payer MEDICARE, OTHER, SELFPAY ==
--- NOTE | 2025-02-12 08:45 | CA_ITS ---
Transthoracic Echocardiogram Patient (Last, First, Middle): Shane Nichole D Gender: Male Date of : 1955 Age: 70 Procedure Date: 02/12/2025 Procedure Type: Transthoracic Echocardiogram Location: OP Height: 182. cm Weight: 105.69 kg BSA: 2.27 m2 Heart Rate: 69 bpm BP: 138 / 60 mmHg Strategic Business Development: JANETH Referring MD: Quinn Smyth MD Symptoms: Z95.2 - Presence of prosthetic heart valve Study Quality: Fair ECG Rhythm: Ventriculary paced rhythm Conclusions: - Normal left ventricular size and systolic function. There is moderately increased left ventricular wall thickness. The visually estimated ejection fraction is between 55-60%. - The basal inferior and mid inferior segments are akinetic. - A bioprosthetic aortic valve is present. The prosthetic aortic valve appears to be functioning normally. Findings Left Ventricle Normal left ventricular size and systolic function. There is moderately increased left ventricular wall thickness. The visually estimated ejection fraction is between 55-60%. There is evidence of regional wall motion abnormalities. There is paradoxical septal motion consistent with a right ventricular pacemaker. Diastolic function is indeterminate on the basis of available data. Wall Motion Rest Echo Findings The basal inferior and mid inferior segments are akinetic. Right Ventricle Normal right ventricular cavity size and systolic function. There is a pacemaker wire seen in the right ventricle. Atria The left atrium is moderately dilated. The right atrium is moderately dilated. Aortic Valve A bioprosthetic aortic valve is present. The prosthetic aortic valve appears to be functioning normally. The peak aortic velocity is 2.85 m/s. The mean gradient is 17 mmHg. There is no aortic valve regurgitation. Mitral Valve There is severe mitral annular calcification. There is trace mitral valve regurgitation. There is no mitral valve stenosis. Pulmonic Valve The pulmonic valve is likely normal. Tricuspid Valve Normal tricuspid valve structure. There is no tricuspid valve regurgitation. Great Vessels All visible segments of the aorta are normal in size. The visualized portions of the pulmonary artery and branches are normal. Venous The inferior vena cava is normal in size and collapses greater than 50% with inspiration. Pericardium/Pleural There is no evidence of pericardial effusion. Prior Study Comparison Changes noted compared to prior study dated: 12/01/2024. EF 55 to 60%. s/p TAVR Measurements 2D Linear Measurements IVSd: 1.31 0.6-0.9/0.6-1.0 cm LVIDd: 5.30 3.9-5.3/4.2-5.9 cm LVIDd Index: 2.33 2.4-3.2/2.2-3.1 cm/m2 LVIDs: 3.09 2.0-3.6 cm LVPWd: 1.43 0.7-1.1 cm LA Diam: 5.00 2.7-3.8/3.0-4.0 cm LAIDs Index: 2.20 1.5-2.3 cm/m2 LV Mass: 385.68 67-162/88-224 g LV Mass Index: 169.90 43-95/49-115 g/m2 LVOT Diam: 2.20 3.0+(-)1.3 cm 2D Systolic Function EF 4C: 62.50 >55% EF 2C: 62.50 >55% EF BiP: 62.00 >55% Mitral Valve MV VTI: 0.46 MV Pk Omkar: 1.84 MV Mn Omkar: 0.88 MV Pk Grad: 14.00 MV Mn Grad: 4.00 MV Pk E: 1.56 MV PK A: 0.46 MV Decel Time: 264.00 E/A: 3.40 E'Lateral: 6.31 E'Medial: 5.44 E/E' Med: 28.70 E/E' Lat: 24.70 PHT: 77.00 MVA PHT: 2.86 MVA Continuity: 2.37 Decel [place]: 5.89 Aortic Valve AoV Pk Omkar: 2.85 AoV Mn Omkar: 1.94 AoV VTI: 0.62 AoV Pk Grad: 32.00 Aov Mn Grad: 17.00 YAMEL Cont.VTI: 1.78 LVOT LVOT Pk Omkar: 1.35 LVOT Mn Omkar: 0.92 LVOT VTI: 0.29 LVOT Pk Grad: 7.00 LVOT Mn Grad: 4.00 LVOT Diam: 2.20 LVOT Area: 3.80 Diastolic Function MV Pk E: 1.56 MV Pk A: 0.46 E/A: 3.40 E'Medial: 5.44 E/E' Med: 28.70 E' Laterial: 6.31 E/E' Lat: 24.70 Right Ventricle TAPSE (mm): 24.60 TVS' Omkar: 11.70 Tricuspid Valve RA Press: 8.00 Great Vessels Aorta Sinus of Valsalva: 3.90 2.0-3.5 cm Ao Asc: 3.70 2.1-3.4 cm Ao Arch: 2.50 Pulmonary Veins Pulm Vein S/D 0.50 Pulmonary Valve PV Pk Omkar: 1.03 Peak PV Grad: 4.00 Updated in Other Vendor System with Status of Final Quinn Smyth MD electronically signed on 02/14/2025 10:54:14 AM with status of Final
--- OUTSIDE RECORDS SUMMARY | 2025-02-12 09:10 | XMS_ITS | Clinical Summary ---
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 Patient is a former smoker with a 78-gjou-nkaq history. He states during ambulation he has to take very frequent breaks due to feeling winded . He continues to have some discomfort along his surgical incisional sites however he states that it is manageable. While patient was in office reviewed his most recent chest CT scan which was performed at on July 31, 2021 and shows chronic [...] Test 05/07/2024 05/07/2023 COVID-19 Vaccine (1 - 2024-2 6 season) 2024 Influenza Vaccine (#1) 2024 Cholesterol [...] Aortic Aneurysm Screen (08/02/2008) Pathologist [facility] Abdominal Aortic Aneurysm (AAA) Screening abstracted Anatomical Region Laterality Modality Other Historical Provider HEALTH MAINTENANCE Final Result from Last 3 Months or Most Recently Relevant to Health Maintenance Insurance [place] Advance Directives Documents on File Type Date Recorded 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
== END ==
LOC: HO.CARD 08:41
PROVIDERS: PCP Internal Medicine; Visit Provider Internal Medicine Cardiovascular Disease
DX: Z95.2 Presence of prosthetic heart valve (principal)
CPT/HCPCS: 93306

== ENCOUNTER → 2025-02-12 08:45 | Outpatient (BNV) | payer MEDICARE, SELFPAY | PROVIDERS: PCP Internal Medicine; Visit Provider Internal Medicine Cardiovascular Disease | DX: I51.89 Other ill-defined heart diseases (principal); Z95.2 Presence of prosthetic heart valve | CPT/HCPCS: 93306 ==

== ENCOUNTER 2025-02-14 09:10 | Outpatient (AMB) | payer MEDICARE, MEDICAID, SELFPAY ==
--- NOTE | 2025-02-14 09:19 | A.OFFVIS_ITS ---
Vital Signs 02/14/25 09:21 Height 6 ft Weight 239 lb 8 oz BMI 32.5 BP 130/56 L Blood Pressure Location Rt brachial Position Sitting Pulse 77 Pulse Source Pulse Oximeter Pulse Oximetry (%) 97 Oxygen Delivery Method Room Air Intake Visit Reasons: COPD Allergies No Known Allergies (No Known Allergies*) Allergy (Verified 02/14/25 09:24) HPI HPI COPD: Details: Shane is pleasant 70 year old, former 40 pack year smoker, quit 15 years ago with underlying mild COPD, severe aortic stenosis, HTN, atrial fibrillation s/p ablation on Eliquis, peripheral vascular disease, SVT, CHF, hyperlipidemia,CAD s/p RCA stent, h/o [place], severe XAVIER could not tolerate CPAP, s/p resection of RUL pulmonary nodule 06/2021, negative for malignancy with recurrent pleural effusions s/p thoracentesis. Since the last visit, he underwent a transcatheter aortic valve replacement mid December 2024 with significant improvements in exercise capacity, dyspnea and overall mood. He has been attending cardiac rehab in addition to exercising throughout the week and motivated to continue this in addition to work towards weight loss. He has been using Trelegy and DuoNeb PRN with good control of respiratory symptoms. Of note, patient currently on prednisone for a gout flare. He has also been evaluated for the Inspire device with plans for implantation in the near future as he has severe XAVIER and unable to tolerate CPAP therapy. [facility] Medical History Paroxysmal atrial fibrillation Atrial fibrillation Atrial flutter CAD (coronary artery disease) Junctional bradycardia COVID-19 Blindness of left eye History of eye prosthesis Thyroid disease GERD (gastroesophageal reflux disease) Numbness On beta patrick at home On anticoagulant therapy Murmur PVD (peripheral vascular disease) Myocardial infarction Alcohol dependence Post laminectomy syndrome Asthma Renal stones COPD (chronic obstructive pulmonary disease) Anemia Hepatitis C Hyperlipidemia HTN (hypertension) SVT (supraventricular tachycardia) Surgical History S/P TAVR (transcatheter aortic valve replacement) Hx of eye surgery History of esophagogastroduodenoscopy (EGD) H/O colonoscopy S/P lobectomy of lung (~05/2021) Stented coronary artery Hx of thyroidectomy History of back surgery Hx of cardiac cath Family History Father Cancer Mother CVD (cardiovascular disease) Social History Household Members: None Housing: Apartment Are you a primary adult daycare coordinator to a significant other at home: No Do you presently have visiting nurse or other home services: No Alcohol intake: current Alcohol intake frequency: former alcohol drinker Alcohol type: hard liquor Patient Tobacco Use Status: Former Tobacco user Tobacco use type: Cigarette Cigarette Packs Per Day: 1 Cigarettes Per Day: 20.0 Years Smoked: 40/ Stopped at age 54 Second Hand Smoke Exposure: No Substance Use Type: Marijuana Advance Directives Date on File: 09/09/23 service: No Review of Systems Const Denies chills, Denies excessive sweating, Denies fever(s), Denies headache(s) and Denies night sweats Eyes Denies dry eyes, Denies irritation and Denies itchy eyes ENT Reports Normal hearing present, Denies headache(s), Denies nasal congestion, Denies nasal discharge and Denies post nasal drip Card Denies chest pain, Denies chest pain at rest, Denies chest pain with activity, Denies claudication, Denies leg edema, Denies dyspnea, Denies orthopnea and Denies paroxysmal nocturnal dyspnea Resp Denies chest congestion, Denies excessive phlegm production, Denies pain on inspiration, Denies pain with cough, Denies dyspnea and Denies stridor Musc Denies myalgias Neuro Reports Normal hearing present and Denies headache(s) Endo Denies excessive sweating Torin/Lymph Denies lymphadenopathy Aller/Immun Denies itchy eyes and Denies seasonal rhinorrhea Physical Exam Vital Signs: Last Vital Signs Pulse 77 02/14/25 09:21 BP 130/56 L 02/14/25 09:21 Pulse Ox 97 02/14/25 09:21 Oxygen Delivery Method Room Air 02/14/25 09:21 BMI result Body Mass Index 32.5 Const General: cooperative, healthy appearing, comfortable, no acute distress, well developed and alert Nutritional Appearance: obese Orientation/consciousness: patient oriented x3 Limitations: no limitations HEENT Head: Yes normal to inspection, Yes normocephalic and Yes atraumatic Ears: hearing grossly normal bilaterally and external ears normal Neck Neck: Yes normal visual inspection and Yes no lymphadenopathy Lymphatic: no lymphadenopathy noted Chest Chest palpation & inspection: normal inspection of the chest Resp Effort & Inspection: normal respiratory effort, able to speak in complete sentences, no audible wheezes, no cough, no stridor, not tachypneic, no tripod positioning and no use of accessory muscles Auscultation: clear to auscultation bilaterally Cardio Jugular venous distension: no JVD Rate: regular rate Rhythm: regular rhythm Heart sounds: Murmur heart sound present Skin Other: warm, dry General skin exam: no rashes or lesions noted Neuro General: patient oriented x3 Cranial nerves: Yes Normal hearing present Cognition (Neuro): normal cognition Gait exam (Neuro): Normal gait present Extrem General: Yes normal to inspection, Yes capillary refill normal, Yes no clubbing, cyanosis or edema and Yes no pedal edema Psych Appearance: grossly normal and well kempt Speech and movement: Normal speech and movement present and Clear speech present Affect: normal affect Attitude: cooperative Thought process: Normal thought process present Thought content: Normal thought content present Insight: Good insight present (Psych) Judgement: Good judgement present (Psych) Assessment & Plan Assessment & Plan (1) COPD (chronic obstructive pulmonary disease): Code(s): J44.9 - Chronic obstructive pulmonary disease, unspecified Category: Medical (2) Obstructive sleep apnea: Code(s): G47.33 - Obstructive sleep apnea (adult) (pediatric) Category: Medical (3) Personal history of tobacco use: Code(s): Z87.891 - Personal history of nicotine dependence Category: Social Hx (4) Nocturnal hypoxemia: Code(s): G47.34 - Idiopathic sleep related nonobstructive alveolar hypoventilation Category: Medical Plan Shane reports significant improvements in dyspnea since undergoing TVAR for severe aortic stenosis. At this time, he reports good control of respiratory symptoms, advised to continue Trelegy and DuoNeb PRN. He is aware to call if symptoms do not improve. In regards to severe XAVIER, he plans to undergo Inspire implantation. Will send for overnight oximetry once performed to assess for resolution of nocturnal hypoxemia. All questions were answered and patient is in agreement of plan. Will follow up in 3 months or sooner if needed. Coding Level of Care Code Est Pt Level 4 (77616) Diagnoses COPD (chronic obstructive pulmonary disease) J44.9 Obstructive sleep apnea G47.33 Personal history of tobacco use Z87.891 Nocturnal hypoxemia G47.34
[2025-02-14 09:21] VITALS: BP 130/56; PULSE 77; O2SAT 97; BMI 32.5
--- OUTSIDE RECORDS SUMMARY | 2025-02-14 10:00 | XMS_ITS | Continuity of Care Document ---
Author Organization [place] - [facility], [facility] Address [address] [place] [address] Care Team Providers Care Diploma Pharmacy Technician Name Role Phone OLIVIA GAMING Primary Care [...] Organization Details Last Modified Time Details Appointments None recorded. Lab None recorded. Referral None recorded. Procedures drug-induc ed sleep endoscopy (SURG) 2024 025 MOOK Not available 12:01:10 Surgeries None recorded. Imaging None recorded. Medication Orders None recorded. Patient TargetsNo targets recorded. Patient Instructions Encounter Date Encounter Id Patient Instructions Last Modified By Organization Details Last Modified Time 11/30/2024 [id number] Contact Naz to schedule drug-induced sleep endoscopy. [...] 11/30/2024 11:54:18 Reason for Referral None Reported. Problems Name Problem SNOMED Code Status Onset Date Resolution Date Notes Provider Name and Address Organization Details Recorded Time Impacted cerumen 80836670 Active 2014 Impacted cerumen; Note: Date Diagnosed: 05/09/2014 9:29 AM (380.4) Not Available [facility] 4 02:21:57 Sensorine ural hearing loss of bilateral ears 242373730 Active 2014 Sensorineu ral HL, bilateral; Note: Date Diagnosed: 05/09/2014 9:52 AM (389.18) Not Available [facility] 4 02:22:01 Tinnitus 54537015 Active 2014 Tinnitus, unspecifie d; Note: Date Diagnosed: 05/09/2014 9:29 AM (388.30) Not Available [facility] 4 02:21:56 Obstructi ve sleep apnea syndrome 93967521 Active 2024 SIMON LEA MD [address] [place] [address],[place] [address], [place], [address] , [facility] - [facility] 5 08:29:53 Enlargeme nt of tongue 46120034 Active 2024 MORRIS SIMMS MD [address] [place] [address],[place] [address], [place], [address] , [facility] - [facility] 5 15:18:42 Problem Notes None recorded. Procedures Surgical History Date Name Laterality Status Provider Name and Address Organization Details Recorded Time 02/06/20 25 sleep nasendoscopy completed SIMON LEA MD [address] [place] [address],[place] [address], [place], [address], [facility] - [facility] 02/05/2025 10:45:12 10/11/19 25 FFL_RE completed MORRIS SIMMS MD [address] [place] [address], [place], [address], [place] - [facility] 10/10/2024 15:11:24 Imaging Results None recorded. Procedure Notes None recorded. Medical Equipment None Reported. Allergies Allergen ID Allergen Name Allergen Category Reaction Reaction Severity Criticality Documentation Date Start Date Code Code System Note Provider Name and Address Organization Details Recorded Time 591938 Brilinta medicatio n rash Not available Not available 02/05/2025 34339 36 RxNorm Not Available mook - External Data Service - prod 00:17:23 Medications Name Sig Start Date Stop Date [...] Available prednison e 10 mg tablet TAKE 4 TABLETS BY MOUTH DAILY FOR 2 DAYS, THEN 2 DAILY FOR 2 DAYS, THEN 1 DAILY FOR 5 DAYS DIRECTED active Not Available Not Available No t Available gabapenti n 600 mg tablet TAKE [...] 40 mg tablet active Medicati on ID: [id number] Du ration Value: 30 Brand Name: lovastat [...] mg tablet 11/30 completed Medicati on ID: [id number] Du ration Value: 30 Brand Name: metoprol ol tartrate Send Method: E-Prescr ibed Sub s Allowed: subs OK Medic ationGen ericName : metoprol ol tartrate Not Available Not Available Not Available gabapenti n 300 mg capsule 11/30 completed Medicati on ID: [id number] Du ration Value: 30 Brand Name: gabapent [...] mg tablet 11/30 completed Medicati on ID: 96397 Du ration Value: 30 Brand Name: lisinopr [...] Available Not Available No t Available oxycodone 5 mg tablet TAKE 1 TABLET BY MOUTH EVERY 6 HOURS NEEDED FOR SEVERE PAIN active Not Available Not Available No t [...] Updated DateTime 11/30/2024 182.88 cm 31.9 kg/m2 125407.21 g TIFFANIE ARMENDARIZ [place] - [facility] 11/30/2024 11:28:59 Social History None recorded. Functional Status None recorded. Mental Status None recorded. Family History Nothing Reported. Medical History No medical history recorded. Past Encounters Encounter ID Performer Location Encounter Start Date Encounter Closed Date Diagnosis/Indication Diagnosis SNOMED-CT Code Diagnosis ICD10 Code Diagnosis IMO Codes Diagnosis Note [id number] SIMON LEA MD [facility] [address] [address] 11/30/2024 11:13:08 11/30/2024 11:54:33 Obstructive sleep apnea syndrome 59881701 G47.33 78607 AHI 30, SMS Review of sleep study [...] by Organization Details LastModified Time None Recorded Payers Encounter Date Sequence Insurance Name Policy Number Policy Bryant Covered Member ID Bryant Member ID Guarantor Name 11/30/2024 2 [place] [facility] Shane Nichole [id number] Shane Nichole 11/30/2024 1 [place] (MEDICARE [place]ACEMENT PPO) [id number] Shane Nichole [id number] Shane Nichole Notes Date Note Type Note Provider Name and Address Organization Details Recorded Time 11/30/2024 text/html XAVIER PV 10/10/24 XAVIER Simms, refer for INSPIRE consult, FOL normal 12/20/23 Home PSG SMS BMI 31 AHI 30 central and mixed events <25% CPAP trial - intolerant from excessive movement and claustrophobia from choking on mask. 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 SIMON LEA MD [address] [place] [address], [phone] [place] - [facility] 11/30/2024 11:55:35
--- OUTSIDE RECORDS SUMMARY | 2025-02-14 10:01 | XMS_ITS | Data Portability ---
Author Organization [place] - [facility], Allergy Address [address] [address] Care Team Providers Care Health Promoter Name Role Phone OLIVIA GAMING Primary Care [...] further steps. [email or web address] Not available 11/30/2024 11:54:18 02/12/2025 02/12/2025 Based on review of prior sleep study, office physical exam, drug-induced sleep endoscopy the patient appears to be a good candidate for the inspire hypoglossal nerve stimulator device. We discussed the implant surgery will require 2 incisions. The first incision is below the right jawline and allows identification and placement of a stimulation cuff around a branch of the nerve that controls movement of the tongue to open the airway while sleeping. The second incision is below the right collarbone and allows a sense lead to detect when effort is made to take of breath. In the same incision site a generator is placed which then sends a signal to trigger tongue movement. Risks of surgery include injury to nearby structures including nerves that control movement of the lower lip, tongue as well as risk of infection of a medical scientific liaison, scar, wound healing. There is an implanted battery that will need to be changed in approximately 10 years with an additional surgery. Patient is anticipated to be discharged home on the day of surgery with prescription for pain control and antibiotics. Most patients only need Tylenol and Motrin for discomfort. They will follow-up in the office approximately 1 week after surgery to evaluate the wound. They should keep the incision sites dry for at least 48 hours after surgery and leave dressings intact until follow-up unless they become very soiled. Patient will follow-up with sleep center to begin activation in approximately 1 month after the surgery and can anticipate the device will become therapeutically titrated over the next several weeks. Patient will work with surgery scheduling to coordinate a time for implantation [email or web address] Not available 02/11/2025 08:29:50 Plan of Treatment Reminders Order Date Submit Date Provider Last Modified By Organization Details Last Modified Time Details Appointments None recorded. Lab None recorded. Referral None recorded. Procedures insertion or replacemen t of neurostimu lator system for treatment of central sleep apnea; complete system (PROC) - INSPIRE implant 2024 025 [email or web address] Not available 06:37:07 drug-induc ed sleep endoscopy (SURG) 2024 025 MOOK Not available 12:01:10 Surgeries None recorded. Imaging None recorded. Medication Orders None recorded. Patient TargetsNo targets recorded. Patient Instructions Encounter Date Encounter Id Patient Instructions Last Modified By Organization Details Last Modified Time 11/30/2024 [id number] Contact Naz to schedule drug-induced sleep endoscopy. Follow up via telehealth to review endoscopy results and discuss candidacy for Inspire surgery. [email or web address] Not available 11/30/2024 11:54:18 Please note: Parts [...] (PROC ) No observ ation record ed. [facility] [address] [place], [address], 10/10/2024 16:54:59 10/11/19 25 12/20/2023 sleep study , diagn ostic (PROC ) No observ ation record ed. [email or web address] Not Available 09/20 15:50:47 Result Notes None recorded. Problems Name Problem SNOMED Code Status Onset Date Resolution Date Notes Provider Name and Address Organization Details Recorded Time Impacted cerumen 08718567 Active 2014 Impacted cerumen; Note: Date Diagnosed: 05/09/2014 9:29 AM (380.4) Not Available On license of [facility] 4 02:21:57 Sensorine ural hearing loss of bilateral ears 131286049 Active 2014 Sensorineu ral HL, bilateral; Note: Date Diagnosed: 05/09/2014 9:52 AM (389.18) Not Available On license of [facility] 4 02:22:01 Tinnitus 53020215 Active 2014 Tinnitus, unspecifie d; Note: Date Diagnosed: 05/09/2014 9:29 AM (388.30) Not Available On license of [facility] 4 02:21:56 Obstructi ve sleep apnea syndrome 46167642 Active 2024 SIMON FRY MD [address] [place] [address], [place], [address] , [facility] - [facility] [place] 5 08:29:53 Enlargeme nt of tongue 44272047 Active 2024 MORRIS SIMMS MD [address] [place], [place] [address], [address] , [facility] - [facility] 5 15:18:42 Problem Notes None recorded. Procedures Surgical History Date Name Laterality Status Provider Name and Address Organization Details Recorded Time 02/06/20 25 sleep nasendoscopy completed SIMON FRY MD [address], [address], [place] - [facility] 02/05/2025 10:45:12 10/11/19 25 FFL_RE completed MORRIS SIMMS MD [address] [facility],[place] [address], [place], [address], [facility] - [facility] 10/10/2024 15:11:24 Imaging Results None recorded. Procedure Notes None recorded. Medical Equipment None Reported. Allergies Allergen ID Allergen Name Allergen Category Reaction Reaction Severity Criticality Documentation Date Start Date Code Code System Note Provider Name and Address Organization Details Recorded Time 656950 Brilinta medicatio n rash Not available Not available 02/05/2025 64707 36 RxNorm Not Available mook - External [...] 40 mg tablet active Medicati on ID: 31596 Du ration Value: 30 Brand Name: lovastat [...] mg tablet 11/30 completed Medicati on ID: 75864 Du ration Value: 30 Brand Name: metoprol ol tartrate Send Method: E-Prescr ibed Sub s Allowed: subs OK Medic ationGen ericName : metoprol ol tartrate Not Available Not Available Not Available gabapenti n 300 mg capsule 11/30 completed Medicati on ID: 02305 Du ration Value: 30 Brand Name: gabapent [...] mg tablet 11/30 completed Medicati on ID: 76209 Du ration Value: 30 Brand Name: lisinopr [...] Updated DateTime 10/10/2024 182.88 cm 31.9 kg/m2 630203.21 g Cristobal Morales [place] - [facility] [place] 10/10/2024 15:02:59 Date Recorded Body height Body mass index (BMI) Body weight Provider Name and Address Organization Details Last Updated DateTime 11/30/2024 182.88 cm 31.9 kg/m2 148531.21 g TIFFANIE ARMENDARIZ [place] - [facility] [place] 11/30/2024 11:28:59 Date Recorded Body height Provider Name an d Address Organization Details Last Updated DateTime 02/12/2025 182.88 cm TIFFANIE ON LICENSE OF [facility] - [facility] [place] 02/12/2025 11:46:34 Social History None recorded. Functional Status None recorded. Mental Status None recorded. Family History Nothing Reported. Medical History No medical history recorded. Past Encounters Encounter ID Performer Location Encounter Start Date Encounter Closed Date Diagnosis/Indication Diagnosis SNOMED-CT Code Diagnosis ICD10 Code Diagnosis IMO Codes Diagnosis Note [id number] MORRIS SIMMS MD [facility] [address] [address] 10/10/2024 14:42:53 10/10/2024 15:44:39 Obstructive sleep apnea syndrome 78742519 G47.33 [id number] He has macrogloss ia contributi ng. I reviewed his PSG which showed an AHI of 30.5 and an O2 cal of 78%. See below. He is interested in a consultati on for an inspire implant. Enlargement of tongue 25 985059 Q38.2 2305 I discussed options besides CPAP including a dental appliance and inspire implant. He is interested in an inspire implant and based on his numbers he seems to meet criteria. I will refer him to Dr. Fry for evaluation . [id number] SIMON FRY MD [facility] [address] [address] 11/30/2024 11:13:08 11/30/2024 11:54:33 Obstructive sleep apnea syndrome 84243590 G47.33 02776 AHI 30, SMS Review of sleep study [...] will review [facility] the procedure. [id number] SIMON FRY MD [facility] [address] [address] 02/12/2025 11:38:10 02/12/2025 11:59:17 Obstructive sleep apnea syndrome 15477275 G47.33 17003 AHI 30, SMS Health Concerns Section Related Observation LastModified by Organization Detai ls LastModified Time None Recorded Concern Status LastModified by Organization Details LastModified Time None Recorded Advance Directives Directive None Recorded Payers Insurance Date Sequence Insurance Name Policy Number Policy Bryant Covered Member ID Bryant Member ID Guarantor Name 10/10/2024 1 [place] [employer] Shane Nicohle [id number] Shane Nichole 01/30/2025 2 [place] [facility] Shane Nichole [id number] Shane Maya Dionisio 02/12/2025 1 [place] (MEDICARE [place]ACEMENT PPO) [id number] Shane Nichole [id number] Shane Nichole Notes Date Note Type Note [...] valve replacement is pending. 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 SIMON FRY MD [address] [facility] [address], [place], [address], [place] - [facility] 11/30/2024 11:55:35 02/12/2025 text/html [facility] 10/10/24 XAVIER Simms, refer for INSPIRE consult, FOL normal 12/20/23 Home PSG SMSBMI 31AHI 30central and mixed events <25%CPAP trial - intolerant from excessive movement and claustrophobia from choking on mask. 02/05/25 Lisandra MARKHAM DISE - good anatomical candidate for INSPHUMBLE retired trenton FRY MD [address] [place] [address], [address], [place] - [facility] 02/12/2025 11:59:45
--- OUTSIDE RECORDS SUMMARY | 2025-02-14 10:01 | XMS_ITS | Clinical Summary ---
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 Patient is a former smoker with a 82-jgbp-grtd history. He states during ambulation he has [...] COMMENT: Benign thyroid nodule COLONOSCOPY 06/05/08 PROCEDURE: MT COLONOSCOPY STOMA DX INCLUDING COLLJ SPEC SPX; COMMENT: Up to cecum, ascending polyp removed:Adenomatous, Hepatic flexure polyp removed:TA, Sigmoid polyp removed:Hyperplastic. 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
--- OUTSIDE RECORDS SUMMARY | 2025-02-14 10:01 | XMS_ITS | Continuity of Care Document ---
Author Organization [place] - [facility], [facility] Address [address] [place] [address] Care Team Providers Care Band Scroll Saw Operator Name Role Phone OLIVIA GAMING Primary Care Provider Assessment Encounter Date Assessment Date Assessment LastModified by Organization Details LastModified Time 02/12/2025 02/12/2025 Based on review of prior [...] as risk of infection of a medical research tech, scar, wound healing. There is an implanted [...] INSPIRE implant 2024 025 [email or web address] Not available 5 06:37:07 Surgeries None recorded. Imaging None recorded. Medication Orders None recorded. Patient TargetsNo targets recorded. Patient InstructionsNo instructions recorded. Reason for Referral None Reported. Problems Name Problem SNOMED Code Status Onset Date Resolution Date Notes Provider Name and Address Organization Details Recorded Time Impacted cerumen 30639609 Active 2014 Impacted cerumen; Note: Date Diagnosed: 05/09/2014 9:29 AM (380.4) Not Available [facility] 4 02:21:57 Sensorine ural hearing loss of bilateral ears 155708749 Active 2014 Sensorineu ral HL, bilateral; Note: Date Diagnosed: 05/09/2014 9:52 AM (389.18) Not Available [facility] 4 02:22:01 Tinnitus 59176155 Active 2014 Tinnitus, unspecifie d; Note: Date Diagnosed: 05/09/2014 9:29 AM (388.30) Not Available [facility] 4 02:21:56 Obstructi ve sleep apnea syndrome 13236925 Active 2024 SIMON LEA MD [address] [place] [address], [place], [address] , [facility] - [facility] 5 08:29:53 Enlargeme nt of tongue 52952071 Active 2024 MORRIS SIMMS MD [address] [place] [address], [place], [address] , [facility] - [facility] 5 15:18:42 Problem Notes None recorded. Procedures Surgical History Date Name Laterality Status Provider Name and Address Organization Details Recorded Time 11/17/20 25 sleep nasendoscopy completed SIMON LAE MD [address] [facility],[place] [address], [place], [address], [facility] 02/05/2025 10:45:12 10/11/19 25 FFL_RE completed MORRIS SIMMS MD [address] [facility] [address], [place], [address], [facility] 10/10/2024 15:11:24 Imaging Results None recorded. Procedure Notes None recorded. Medical Equipment None Reported. Allergies Allergen ID Allergen Name Allergen Category Reaction Reaction Severity Criticality Documentation Date Start Date Code Code System Note Provider Name and Address Organization Details Recorded Time 226188 Brilinta medicatio n rash Not available Not available 02/05/2025 13408 36 RxNorm Not Available mook - External Data Service - prod 5 00:17:23 Medications Name Sig Start Date Stop [...] 40 mg tablet active Medicati on ID: 26879 Du ration Value: 30 Brand Name: lovastat [...] mg tablet 11/30 completed Medicati on ID: 25231 Du ration Value: 30 Brand Name: metoprol ol tartrate Send Method: E-Prescr ibed Sub s Allowed: subs OK Medic ationGen ericName : metoprol ol tartrate Not Available Not Available Not Available gabapenti n 300 mg capsule 11/30 completed Medicati on ID: 29320 Du ration Value: 30 Brand Name: gabapent [...] mg tablet 11/30 completed Medicati on ID: 73014 Du ration Value: 30 Brand Name: lisinopr [...] t Available Vitals Date Recorded Body height Provider Name an d Address Organization Details Last Updated DateTime 02/12/2025 182.88 cm TIFFANIE KALA [place] - [facility] 02/12/2025 11:46:34 Social History None recorded. Functional Status None recorded. Mental Status None recorded. Family History Nothing Reported. Medical History No medical history recorded. Past Encounters Encounter ID Performer Location Encounter Start Date Encounter Closed Date Diagnosis/Indication Diagnosis SNOMED-CT Code Diagnosis ICD10 Code Diagnosis IMO Codes Diagnosis Note [id number] SIMON LEA MD [facility] of [address] [address] 02/12/2025 11:38:10 02/12/2025 11:59:17 Obstructive sleep apnea syndrome 60704444 G47.33 [id number] AHI 30, SMS Health Concerns Section Related Observation LastModified by Organization Detai ls LastModified Time None Recorded Concern Status LastModified by Organization Details LastModified Time None Recorded Payers Encounter Date Sequence Insurance Name Policy Number Policy Bryant Covered Member ID Bryant Member ID Guarantor Name 02/12/2025 2 [place] [facility] Shane Nichole [id number] Shane Nichole 02/12/2025 1 [place] (MEDICARE REPLACEMENT PPO) [id number] Shane Nichole [id number] Shane Nichole Notes Date Note Type Note Provider Name and Address Organization Details Recorded Time 02/12/2025 text/html OSAPV 10/10/24 XAVIER Simms, refer for INSPIRE consult, FOL normal 12/20/23 Home PSG SMSBMI 31AHI 30central and mixed events <25%CPAP trial - intolerant from excessive movement and claustrophobia from choking on mask. 02/05/25 Lisandra MARKHAM DISE - good anatomical candidate for INSPIRE retired trenton LEA MD [address] [place] [address], [place], [address], [place] - [facility] 02/12/2025 11:59:45
== END 2025-02-14 09:50 | disposition home or self-care (01) ==
LOC: HO.HPSW 09:11
PROVIDERS: PCP Internal Medicine; Visit Provider Nurse Practitioner Family
DX: J44.9 Chronic obstructive pulmonary disease, unspecified (principal); G47.33 Obstructive sleep apnea (adult) (pediatric); Z87.891 Personal history of nicotine dependence; G47.34 Idiopathic sleep related nonobstructive alveolar hypoventilation
CPT/HCPCS: 99214

== ENCOUNTER → 2025-02-14 09:10 | Outpatient (BNVA) | payer MEDICARE, MEDICAID, SELFPAY | PROVIDERS: PCP Internal Medicine; Visit Provider Nurse Practitioner Family | DX: J44.9 Chronic obstructive pulmonary disease, unspecified (principal); G47.33 Obstructive sleep apnea (adult) (pediatric); Z87.891 Personal history of nicotine dependence; G47.34 Idiopathic sleep related nonobstructive alveolar hypoventilation | CPT/HCPCS: 99212 ==

== ENCOUNTER 2025-02-26 13:43 | Outpatient (AMB) | payer MEDICARE, MEDICAID, SELFPAY ==
--- NOTE | 2025-02-26 14:02 | MHC.OFFVIS ---
Vital Signs 02/26/25 14:04 Height 6 ft Weight 240 lb 11.916 oz BMI 32.6 BP 140/62 H Blood Pressure Location Lt brachial Position Sitting Pulse 72 Pulse Source Monitor Intake Visit Reasons: 3 mth f/up Intake Note: 3 mth f/up Telecommunications Analyst Required: No Accompanied by: Self / Same As Patient Allergies No Known Allergies (No Known Allergies*) Allergy (Verified 02/14/25 09:24) Medication List - Last Reconciled 02/26/25 by Quinn Smyth MD acetaminophen (Tylenol Extra Strength) 500 - 1,000 mg (1 - 2 x 500 mg) PO QID PRN albuterol sulfate 90 mcg/actuation 2 puffs inhalation QID PRN allopurinol 100 mg PO DAILY amiodarone 200 mg PO DAILY amlodipine 10 mg PO DAILY apixaban (Eliquis) 5 mg PO BID atorvastatin 40 mg PO DAILY cholecalciferol (vitamin D3) (Vitamin D3) 25 mcg PO DAILY cyanocobalamin (vitamin B-12) (Vitamin B-12) 500 mcg PO DAILY famotidine 40 mg PO BID ferrous sulfate (FeroSul) 325 mg PO Q OTHER DAY vvywgxfglob-kmemexuyb-eqzpdeds 200-62.5-25 mcg (Trelegy Ellipta) 1 ea inhalation DAILY gabapentin 600 mg PO BID ipratropium-albuterol 0.5 mg-3 mg(2.5 mg base)/3 mL 3 mL inhalation TID PRN magnesium oxide 400 mg PO BIDWM prednisone 10 mg PO DIRECTED HPI Comments Details: Pleasant 70 year gentleman who is here for follow-up. He underwent transcatheter aortic valve replacement and is here for 1 month visit. He had echocardiography performed in January showing preserved LV function 55-60% with basal inferior mid inferior akinesis. Bioprosthetic valve in aortic position which is normally functioning with no aortic regurgitation and mean gradient of 17 mm Hg. He has been doing well and is exercising without any significant symptoms. No chest discomfort. No significant shortness of breath. Overall significant improvement in symptomatology. [facility] Medical History Paroxysmal atrial fibrillation Atrial fibrillation Atrial flutter CAD (coronary artery disease) Junctional bradycardia COVID-19 Blindness of left eye History of eye prosthesis Thyroid disease GERD (gastroesophageal reflux disease) Numbness On beta patrick at home On anticoagulant therapy Murmur PVD (peripheral vascular disease) Myocardial infarction Alcohol dependence Post laminectomy syndrome Asthma Renal stones COPD (chronic obstructive pulmonary disease) Anemia Hepatitis C Hyperlipidemia HTN (hypertension) SVT (supraventricular tachycardia) Surgical History S/P TAVR (transcatheter aortic valve replacement) Hx of eye surgery History of esophagogastroduodenoscopy (EGD) H/O colonoscopy S/P lobectomy of lung (~05/2021) Stented coronary artery Hx of thyroidectomy History of back surgery Hx of cardiac cath Family History Father Cancer Mother CVD (cardiovascular disease) Social History Household Members: None Housing: Apartment Are you a primary outdoor emergency care technician to a significant other at home: No Do you presently have visiting nurse or other home services: No Alcohol intake: current Alcohol intake frequency: former alcohol drinker Alcohol type: hard liquor Patient Tobacco Use Status: Former Tobacco user Tobacco use type: Cigarette Cigarette Packs Per Day: 1 Cigarettes Per Day: 20.0 Years Smoked: 40/ Stopped at age 54 Second Hand Smoke Exposure: No Substance Use Type: Marijuana Advance Directives Date on File: 09/09/23 service: No Review of Systems Const Denies chills, Denies fatigue, Denies fever(s), Denies frequent falls, Denies weakness, Denies weight gain and Denies weight loss ENT Denies dizziness Card Denies chest pain, Denies leg edema, Denies lightheadedness, Denies palpitations, Denies dyspnea and Denies dyspnea on exertion Resp Denies cough, Denies dyspnea and Denies dyspnea on exertion GI Denies hematochezia Musc Denies abnormal gait, Denies muscle weakness, Denies numbness, Denies radiating pain into limb and Denies tingling Neuro Denies abnormal gait, Denies dizziness, Denies frequent falls, Denies numbness, Denies tingling and Denies weakness Endo Denies fatigue and Denies palpitations Physical Exam Vital Signs: Last Vital Signs Pulse 72 02/26/25 14:04 BP 140/62 H 02/26/25 14:04 BMI result Body Mass Index 32.6 GENERAL APPEARANCE: in no acute distress, pleasant. NECK: no carotid bruit, no jugular venous distention. HEART: Mild systolic murmur aortic area, regular rate and rhythm. LUNGS: clear to auscultation bilaterally. ABDOMEN: soft, nontender. EXTREMITIES: no edema. PERIPHERAL PULSES: equal. NEUROLOGIC: No gross deficits, AAO X 3 Office Procedures EKG Details: Atrial sensed V paced rhythm 72 beats per minute, QTC 516 milliseconds, QRS 156 milliseconds. 93439-Jjuyddosnyxcynmdo, Complete Assessment & Plan Assessment & Plan (1) Aortic stenosis: Code(s): I35.0 - Nonrheumatic aortic (valve) stenosis Category: Medical (2) Paroxysmal atrial fibrillation: Code(s): I48.0 - Paroxysmal atrial fibrillation Category: Medical (3) Status post transcatheter aortic valve replacement (TAVR) using bioprosthesis: Code(s): Z95.3 - Presence of xenogenic heart valve Category: Surgical Plan Pleasant 70 year gentleman who is here for follow-up. He had severe aortic valve stenosis and underwent left subclavian access transcatheter aortic valve replacement with a 26 mm Shakira S3 valve. He has done very well after that. He is exercising and has no significant dyspnea. He is on Eliquis for atrial fibrillation. He has sinus rhythm and has atrial sensed V paced rhythm. He has done remarkably well after transcatheter aortic valve replacement. He will follow up with Dr. Em and we will see us at 1 year for follow-up. I have explained to the patient that he has a prosthetic valve now and for any dental work he will require antibiotic prophylaxis. Thank you for allowing me to participate in the care of your patient. Please feel free to contact me if you have any questions. Coding Level of Care Code Est Pt Level 4 (56136) Diagnoses Aortic stenosis I35.0 Paroxysmal atrial fibrillation I48.0 Status post transcatheter aortic valve replacement (TAVR) using bioprosthesis Z95.3 CPT Codes EKG - CPT: 33941-Kbzrisnbaubfphsmu, Complete ([id number])
[2025-02-26 14:04] VITALS: BP 140/62; PULSE 72; BMI 32.6
--- OUTSIDE RECORDS SUMMARY | 2025-02-26 22:30 | XMS_ITS | Continuity of Care Document ---
Author Organization [place] - [facility], [facility] Address [address] [place] [address] Care Team Providers Care Bale Opener Name Role Phone OLIVIA GAMING Primary Care [...] as risk of infection of a medical insurance collector, scar, wound healing. There is an implanted [...] Details Last Modified Time Details Appointments SURGERY 120 2025 11:15A M SIMON LEA MD Not available Not available Not available Lab None recorde d. Referral None recorde d. Procedures inserti on or replace ment of neurost imulato r system for treatme nt of central sleep apnea; complet e system (PROC) - INSPIRE implant 2024 025 [email or web address] Not available 02/23/2025 08:28:13 Surgeries None recorde d. Imaging None recorde d. Medication Orders None recorde d. Patient TargetsNo targets recorded. Patient InstructionsNo instructions recorded. Reason for Referral None Reported. Problems Name Problem SNOMED Code Status Onset Date Resolution Date Notes Provider Name and Address Organization Details Recorded Time Impacted cerumen 49950612 Active 2014 Impacted cerumen; Note: Date Diagnosed: 05/09/2014 9:29 AM (380.4) Not Available [facility] 4 02:21:57 Sensorine ural hearing loss of bilateral ears 065584055 Active 2014 Sensorineu ral HL, bilateral; Note: Date Diagnosed: 05/09/2014 9:52 AM (389.18) Not Available [facility] 4 02:22:01 Tinnitus 07518985 Active 2014 Tinnitus, unspecifie d; Note: Date Diagnosed: 05/09/2014 9:29 AM (388.30) Not Available [facility] 4 02:21:56 Obstructi ve sleep apnea syndrome 36542223 Active 2024 SIMON LEA MD [address] [facility],[place] [address], [place], [address] , [facility] - [facility] 5 08:29:53 Enlargeme nt of tongue 90993552 Active 2024 MORRIS SIMMS MD [address] [place] [address],[place] [address], [place], [address] , [facility] - [facility] 15:18:42 Problem Notes None recorded. Procedures Surgical History Date Name Laterality Status Provider Name and Address Organization Details Recorded Time 02/06/20 sleep nasendoscopy completed SIMON LEA MD [address], [address], [facility] 02/05/2025 10:45:12 10/11/19 FFL_RE completed MORRIS SIMMS MD [address] [place] [address],[address], [address], [facility] 10/10/2024 15:11:24 Imaging Results None recorded. Procedure Notes None recorded. Medical Equipment None Reported. Allergies Allergen ID Allergen Name Allergen Category Reaction Reaction Severity Criticality Documentation Date Start Date Code Code System Note Provider Name and Address Organization Details Recorded Time 949116 Brilinta medicatio n rash Not available Not available 02/05/2025 08075 36 RxNorm Not Available mook - External [...] 40 mg tablet active Medicati on ID: 89953 Du ration Value: 30 Brand Name: lovastat [...] mg tablet 11/30 completed Medicati on ID: 52204 Du ration Value: 30 Brand Name: metoprol ol tartrate Send Method: E-Prescr ibed Sub s Allowed: subs OK Medic ationGen ericName : metoprol ol tartrate Not Available Not Available Not Available gabapenti n 300 mg capsule 11/30 completed Medicati on ID: 04598 Du ration Value: 30 Brand Name: gabapent [...] mg tablet 11/30 completed Medicati on ID: 89483 Du ration Value: 30 Brand Name: lisinopr [...] Last Updated DateTime 02/12/2025 182.88 cm TIFFANIE ARMENDARIZ [place] - [facility] 02/12/2025 11:46:34 Social History None recorded. Functional Status None recorded. Mental Status None recorded. Family History Nothing Reported. Medical History No medical history recorded. Past Encounters Encounter ID Performer Location Encounter Start Date Encounter Closed Date Diagnosis/Indication Diagnosis SNOMED-CT Code Diagnosis ICD10 Code Diagnosis IMO Codes Diagnosis Note [id number] SIMON LEA MD [facility] [address] [address] 02/12/2025 11:38:10 02/12/2025 11:59:17 Obstructive sleep apnea syndrome 41259485 G47.33 [id number] AHI 30, SMS Health Concerns Section Related Observation LastModified by Organization Detai ls LastModified Time None Recorded Concern Status LastModified by Organization Details LastModified Time None Recorded Payers Encounter Date Sequence Insurance Name Policy Number Policy Bryant Covered Member ID Bryant Member ID Guarantor Name 02/12/2025 2 [place] Shane Nichole [id number] Shane Nichole 02/12/2025 1 [place] (MEDICARE REPLACEMENT PPO) [id number] Shane Nichole [id number] Shane Nichole Notes Date Note Type Note Provider Name and Address Organization Details Recorded Time 02/12/2025 text/html OSAPV 10/10/24 XAVIER Simms, refer for INSPIRE consult, FOL normal 12/20/23 Home PSG SMSBMI 31AHI 30central and mixed events <25%CPAP trial - intolerant from excessive movement and claustrophobia from choking on mask. 02/05/25 Lisandra MARKHAM, DISE - good anatomical candidate for INSPIRE retirelupillo LEA MD [address] [place] [address], [address], [place] - [facility] 02/12/2025 11:59:45
--- OUTSIDE RECORDS SUMMARY | 2025-02-26 22:30 | XMS_ITS | Clinical Summary ---
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 Patient is a former smoker with a 31-uxkz-jjct history. He states during ambulation he has to take very frequent breaks due to feeling winded . He continues to have some discomfort along his surgical incisional sites however he states that it is manageable. While patient was in office reviewed his most recent chest CT scan which was performed at [facility] on July 31, 2021 and [...] on file Sexual Orientation Not on file Last Filed Vital Signs Vital Sign Reading [...] Done Comments Colorectal Cancer Screening: Colonoscopy 1955 RSV Immunization Adult Patients (1 - Risk 50-74 years 1-dose series) 01/08/2004 Zoster Vaccines (1 of 2) 01/08/2004 DTaP,Tdap,and Td Vaccines (2 - Td or Tdap) 04/18/2018 04/18/2008 Falls Risk Assessment 03/01/2022 Hepatitis C Screening 03/01/2022 Medicare Annual Wellness Visit 03/01/2022 Social Influencers of Health Screening 03/01/2022 Depression Screening 03/22/2024 Hypertension/CHF/CAD Annual BMP Blood Test 05/07/2024 05/07/2023 COVID-19 Vaccine (2 - season) 2024 06/18/2020 Influenza Vaccine (#1) 2024 , 01/14/2023, 01/02/2022, Additional history exists Cholesterol Screening (Lipid Panel) 01/15/2028 01/14/2023 Abdominal Aortic Aneurysm (AAA) Screen Completed 08/02/2008 Pneumococcal Vaccine: 50+ Years Completed 08/05/2020, 05/19/2019 HIB Vaccines Aged Out No longer eligi [...] to complete this topic RSV Immunization Patients Under 20 months Aged Out No longer eligible based on [...] Results * Annual BMP Blood Test (05/07/2023) Pathologist [facility] Annual BMP Blood Test abstracted [facility] Provider HEALTH MAINTENANCE Final Result * Lipid panel (01/14/2023) [facility] LDL/HDL Ratio 0 0 - 0 Triglycerides 0 0 - 0 mg/dL Cholesterol 0 0 - 0 mg/dL HDL 0 0 - 0 mg/dL LDL Cholesterol 0 0 - 0 mg/dL Blood Venous blood specimen / Unknown [facility] Provider LAB BLOOD ORDERABLES Terese l Result * Abdominal Aortic Aneurysm Screen (08/02/2008) Pathologist [facility] Abdominal Aortic Aneurysm (AAA) Screening abstracted Anatomical Region Laterality Modality Other [facility] Provider HEALTH MAINTENANCE Final Result from Last 3 Months or Most Recently Relevant to Health Maintenance Insurance [place] Advance Directives Documents on File Type Date Recorded Patient Ekg Monitor Expl anation Health Care Decision (hx) 06/20/2021 [...] (hx) 06/18/2021 AD HURTADO DIRECTIVE Care Teams Rotary Shear Operator Relationship Specialty Start Date End Date Kojo Fermin MD [address] [place] [address] PCP - General Internal Medicine 03/27/21
--- OUTSIDE RECORDS SUMMARY | 2025-02-26 22:30 | XMS_ITS | Data Portability ---
Author Organization [place] - [facility], Allergy Address [address] [address] Care Team Providers Care Product Ambassador Name Role Phone OLIVIA GAMING Primary Care [...] well as risk of infection of a certified medical coder, scar, wound healing. There is an implanted [...] Appointments SURGERY 120 2025 11:15A M SIMON FRY MD Not available Not available Not available Lab None recorde d. Referral None recorde d. Procedures inserti on or replace ment of neurost imulato r system for treatme nt of central sleep apnea; complet e system (PROC) - INSPIRE implant 2024 025 [email or web address] Not available 02/23/2025 08:28:13 drug-in duced sleep endosco py (SURG) 2024 025 MOOK Not available 02/05/2025 12:01:10 Surgeries None recorde d. Imaging None recorde d. Medication Orders None recorde d. Patient TargetsNo targets recorded. Patient Instructions Encounter Date Encounter Id Patient Instructions Last Modified By Organization Details Last Modified Time 11/30/2024 [id number] Contact Naz to schedule drug-induced sleep endoscopy. [...] (PROC ) No observ ation record ed. [facility] [address] [place], [address], 10/10/2024 16:54:59 10/11/19 25 12/20/2023 sleep study , diagn ostic (PROC ) No observ ation record ed. [email or web address] Not Available 09/20 15:50:47 Result Notes None recorded. Problems Name Problem SNOMED Code Status Onset Date Resolution Date Notes Provider Name and Address Organization Details Recorded Time Impacted cerumen 63257431 Active 2014 Impacted cerumen; Note: Date Diagnosed: 05/09/2014 9:29 AM (380.4) Not Available [facility] 4 02:21:57 Sensorine ural hearing loss of bilateral ears 074435173 Active 2014 Sensorineu ral HL, bilateral; Note: Date Diagnosed: 05/09/2014 9:52 AM (389.18) Not Available [facility] 4 02:22:01 Tinnitus 20146010 Active 2014 Tinnitus, unspecifie d; Note: Date Diagnosed: 05/09/2014 9:29 AM (388.30) Not Available [facility] 4 02:21:56 Obstructi ve sleep apnea syndrome 25693167 Active 2024 SIMON FRY MD [address] [place] [address],[place] [address], [place], [address] , [facility] - [facility] 5 08:29:53 Enlargeme nt of tongue 97472287 Active 2024 MORRIS SIMMS MD [address] [place] [address],[place] [address], [place], [address] , [facility] 5 15:18:42 Problem Notes None recorded. Procedures Surgical History Date Name Laterality Status Provider Name and Address Organization Details Recorded Time 02/06/20 sleep nasendoscopy completed SIMON FRY MD [address] [place] [address], [address], [facility] 02/05/2025 10:45:12 10/11/19 FFL_RE completed MORRIS SIMMS MD [address], [address], [facility] 10/10/2024 15:11:24 Imaging Results None recorded. Procedure Notes None recorded. Medical Equipment None Reported. Allergies Allergen ID Allergen Name Allergen Category Reaction Reaction Severity Criticality Documentation Date Start Date Code Code System Note Provider Name and Address Organization Details Recorded Time 323389 Brilinta medicatio n rash Not available Not available 02/05/2025 41310 36 RxNorm Not Available mook - External [...] 40 mg tablet active Medicati on ID: 23106 Du ration Value: 30 Brand Name: lovastat [...] mg tablet 11/30 completed Medicati on ID: 52164 Du ration Value: 30 Brand Name: metoprol ol tartrate Send Method: E-Prescr ibed Sub s Allowed: subs OK Medic ationGen ericName : metoprol ol tartrate Not Available Not Available Not Available gabapenti n 300 mg capsule 11/30 completed Medicati on ID: 74140 Du ration Value: 30 Brand Name: gabapent [...] mg tablet 11/30 completed Medicati on ID: 25518 Du ration Value: 30 Brand Name: lisinopr [...] Updated DateTime 10/10/2024 182.88 cm 31.9 kg/m2 660611.21 g Cristobal Morales [place] - [facility] 10/10/2024 15:02:59 Date Recorded Body height Body mass index (BMI) Body weight Provider Name and Address Organization Details Last Updated DateTime 11/30/2024 182.88 cm 31.9 kg/m2 249793.21 g TIFFANIE ARMENDARIZ [place] - [facility] 11/30/2024 11:28:59 Date Recorded Body height Provider Name an d Address Organization Details Last Updated DateTime 02/12/2025 182.88 [facility] [place] [facility] 02/12/2025 11:46:34 Social History None recorded. Functional Status None recorded. Mental Status None recorded. Family History Nothing Reported. Medical History No medical history recorded. Past Encounters Encounter ID Performer Location Encounter Start Date Encounter Closed Date Diagnosis/Indication Diagnosis SNOMED-CT Code Diagnosis ICD10 Code Diagnosis IMO Codes Diagnosis Note [id number] MORRIS SIMMS MD [facility] [address] [address] 10/10/2024 14:42:53 10/10/2024 15:44:39 Obstructive sleep apnea syndrome 24903944 G47.33 [id number] He has macrogloss ia contributi ng. I reviewed his PSG which showed an AHI of 30.5 and an O2 cal of 78%. See below. He is interested in a consultati on for an inspire implant. Enlargement of tongue 25 209233 Q38.2 5727 I discussed options besides CPAP including a dental appliance and inspire implant. He is interested in an inspire implant and based on his numbers he seems to meet criteria. I will refer him to Dr. Fry for evaluation . [id number] SIMON FRY MD [facility] [address] [address] 11/30/2024 11:13:08 11/30/2024 11:54:33 Obstructive sleep apnea syndrome 22838606 G47.33 86651 AHI 30, SMS Review of sleep study [...] will review results with a telehealth call [facility] 1 week after the procedure. [id number] SIMON FRY MD [facility] [address] [address] 02/12/2025 11:38:10 02/12/2025 11:59:17 Obstructive sleep apnea syndrome 90230763 G47.33 09282 AHI 30, SMS Health Concerns Section Related Observation LastModified by Organization Detai ls LastModified Time None Recorded Concern Status LastModified by Organization Details LastModified Time None Recorded Advance Directives Directive None Recorded Payers Insurance Date Sequence Insurance Name Policy Number Policy Bryant Covered Member ID Bryant Member ID Guarantor Name 10/10/2024 1 [place] [facility] Shane Nichole [id number] Shane Nichole 01/30/2025 2 [place] [facility] Shane Nichole [id number] Shane Nichole 02/12/2025 1 [facility]: MEDICARE PPO BLUE (MEDICARE REPLACEMENT PPO) [id number] Shane Nichole [id number] Shane Nichole Notes Date Note Type Note [...] replacement is pending. MORRIS SIMMS MD 100 [facility],[address], [address], [place] - [facility] 10/10/2024 15:44:30 11/30/2024 text/html XAVIER PV 10/10/24 XAVIER Simms, refer for INSPIRE consult, FOL normal 12/20/23 Home PSG SMS BMI 31 AHI 30 central and mixed events <25% CPAP trial - intolerant from excessive movement and claustrophobia from choking on mask. 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 SIMON FRY MD 100 [facility],[place] [address], [place], [address], [place] - [facility] 11/30/2024 11:55:35 02/12/2025 text/html OSAPV 10/10/24 Miryam, XAVIER, refer for INSPIRE consult, FOL normal 12/20/23 Home PSG SMSBMI 31AHI 30central and mixed events <25%CPAP trial - intolerant from excessive movement and claustrophobia from choking on mask. 02/05/25 Lisandra MARKHAM, MARRY - good anatomical candidate for INSPIRE retired trenton FRY MD [address] [place] [address], [place], [address], [place] - [facility] 02/12/2025 11:59:45
--- OUTSIDE RECORDS SUMMARY | 2025-02-26 22:30 | XMS_ITS | Continuity of Care Document ---
Author Organization [place] - [facility], [facility] Address [address] [place] [address] Care Team Providers Care Debone Supervisor Name Role Phone OLIVIA GAMING Primary Care Provider [phone] Assessment Encounter Date Assessment Date Assessment LastModified [...] drug-jm cait sleep endoscopy (SURG) 2024 025 MOOK Not available 02/05/2025 12:01:10 Surgeries None recorded. Imaging None recorded. Medication Orders None recorded. Patient TargetsNo targets recorded. Patient Instructions Encounter Date Encounter Id Patient Instructions Last Modified By Organization Details Last Modified Time 11/30/2024 [id number] Contact Naz to schedule drug-induced sleep endoscopy. [...] Address Organization Details Recorded Time Impacted cerumen 14573853 Active 2014 Impacted cerumen; Note: Date Diagnosed: 05/09/2014 9:29 AM (380.4) Not Available [facility] 4 02:21:57 Sensorine ural hearing loss of bilateral ears 995588810 Active 2014 Sensorineu ral HL, bilateral; Note: Date Diagnosed: 05/09/2014 9:52 AM (389.18) Not Available [facility] 4 02:22:01 Tinnitus 99733730 Active 2014 Tinnitus, unspecifie d; Note: Date Diagnosed: 05/09/2014 9:29 AM (388.30) Not Available [facility] 4 02:21:56 Obstructi ve sleep apnea syndrome 29683213 Active 2024 SIMON LEA MD [address] [place], [place] [address], [address] , [facility] - [facility] 5 08:29:53 Enlargeme nt of tongue 97096299 Active 2024 MORRIS SIMMS MD [address] [place], [place] [address], [address] , [facility] - [facility] 5 15:18:42 Problem Notes None recorded. Procedures Surgical History Date Name Laterality Status Provider Name and Address Organization Details Recorded Time 02/06/20 25 sleep nasendoscopy completed SIMON LEA MD [address] [place], [place] [address], [address], [place] - [facility] 02/05/2025 10:45:12 10/11/19 25 FFL_RE completed MORRIS SIMMS MD 100 [facility] [address], [place], [address], [facility] - [facility] 10/10/2024 15:11:24 Imaging Results None recorded. Procedure Notes None recorded. Medical Equipment None Reported. Allergies Allergen ID Allergen Name Allergen Category Reaction Reaction Severity Criticality Documentation Date Start Date Code Code System Note Provider Name and Address Organization Details Recorded Time 838690 Brilinta medicatio n rash Not available Not available 02/05/2025 40272 36 RxNorm Not Available mook - External [...] 40 mg tablet active Medicati on ID: 48942 Du ration Value: 30 Brand Name: lovastat [...] mg tablet 11/30 completed Medicati on ID: 13190 Du ration Value: 30 Brand Name: metoprol ol tartrate Send Method: E-Prescr ibed Sub s Allowed: subs OK Medic ationGen ericName : metoprol ol tartrate Not Available Not Available Not Available gabapenti n 300 mg capsule 11/30 completed Medicati on ID: 78286 Du ration Value: 30 Brand Name: gabapent [...] mg tablet 11/30 completed Medicati on ID: 24750 Du ration Value: 30 Brand Name: lisinopr [...] Not Available Not Available No t Available Kennylegy Ellipta 200 mcg-62.5 mcg-25 mcg powder for inhalatio n INHALE 1 PUFF BY MOUTH ONCE DAILY active Not Available Not Available No t Available Vitals Date Recorded Body height Body mass index (BMI) Body weight Provider Name and Address Organization Details Last Updated DateTime 11/30/2024 182.88 cm 31.9 kg/m2 738551.21 g [facility]IE [facility] - [facility] 11/30/2024 11:28:59 Social History None recorded. Functional Status None recorded. Mental Status None recorded. Family History Nothing Reported. Medical History No medical history recorded. Past Encounters Encounter ID Performer Location Encounter Start Date Encounter Closed Date Diagnosis/Indication Diagnosis SNOMED-CT Code Diagnosis ICD10 Code Diagnosis IMO Codes Diagnosis Note [id number] SIMON LEA MD [facility] [address] [address] 11/30/2024 11:13:08 11/30/2024 11:54:33 Obstructive sleep apnea syndrome 01596551 G47.33 [id number] AHI 30, SMS Review of sleep study [...] review results with a telehealth call laci bentley 1 week after the procedure. Health Concerns Section Related Observation LastModified by Organization Daljit nascimento LastModified Time None Recorded Concern Status LastModified by Organization Details LastModified Time None Recorded Payers Encounter Date Sequence Insurance Name Policy Number Policy Bryant Covered Member ID Bryant Member ID Guarantor Name 11/30/2024 2 [place] [facility] Shane Nichole [id number] Shane Nichole 11/30/2024 1 [place] (MEDICARE [place]ACEMENT PPO) [id number] Shane Nichole [id number] Shane Nichole Notes Date Note Type Note Provider Name and Address Organization Details Recorded Time 11/30/2024 text/html XAVIER PV 10/10/24 Miryam, XAVIER, refer for INSPIRE consult, [...] 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 SIMON LEA MD [address] [place] [address], [address], [place] - [facility] 11/30/2024 11:55:35
== END 2025-02-26 14:30 | disposition home or self-care (01) ==
LOC: HO.HCS 13:43
PROVIDERS: PCP Internal Medicine; Visit Provider Internal Medicine Cardiovascular Disease
DX: I35.0 Nonrheumatic aortic (valve) stenosis (principal); I48.0 Paroxysmal atrial fibrillation; Z95.3 Presence of xenogenic heart valve
CPT/HCPCS: 93010; 99214

== ENCOUNTER → 2025-02-26 13:43 | Outpatient (BNVA) | payer MEDICARE, MEDICAID, SELFPAY | PROVIDERS: PCP Internal Medicine; Visit Provider Internal Medicine Cardiovascular Disease | DX: I35.0 Nonrheumatic aortic (valve) stenosis (principal); I48.0 Paroxysmal atrial fibrillation; Z95.3 Presence of xenogenic heart valve; Z79.01 Long term (current) use of anticoagulants | CPT/HCPCS: 93005; 99212 ==

== ENCOUNTER 2025-03-05 09:18 | Outpatient (AMB) | payer MEDICARE, MEDICAID, SELFPAY ==
--- NOTE | 2025-03-05 09:24 | MHC.OFFVIS ---
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 States his symptoms are worse at night time., He feels like needles are poking him, stings due to numbness, and wakes him up at night. States hot water helps at times. He has weakness and difficulty picking up item due to numbness feeling in his fingers. Patient is interested in discussing surgical intervention. IMPRESSION: 1. This is an abnormal study. 2. There is electrodiagnostic evidence for right moderate-SEVERE median neuropathy at wrist, consistent with Carpal Tunnel Syndrome. 3. There is electrodiagnostic evidence for right chronic ulnar neuropathy, I suspect is proximal or at the elbow. 4. There is no electrodiagnostic evidence for brachial plexopathy or cervical radiculopathy. CLINICAL COMMENT: Comparison to EMG done by Dr. Madison, 08/30/2024, that reported moderate right median neuropathy across carpal tunnel. Similar findings seen on median nerve today. Similar findings seen on right ulnar nerve, although it was not mentioned on his report. Needle EMG on upper extremity muscles were not performed by Dr. Madison. Today's needle EMG to RUE showed chronic reinnervation changes on right FDI, supportive for findings of ulnar neuropathy. 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 States his symptoms are worse at night time., He feels like needles are poking him, stings due to numbness, and wakes him up at night. States hot water helps at times. He has weakness and difficulty picking up item due to numbness feeling in his fingers. Patient states that the index and middle fingers of the right hand are numb at all times. Patient is interested in discussing surgical intervention. IMPRESSION: 1. This is an abnormal study. 2. There is electrodiagnostic evidence for right moderate-SEVERE median neuropathy at wrist, consistent with Carpal Tunnel Syndrome. 3. There is electrodiagnostic evidence for right chronic ulnar neuropathy, I suspect is proximal or at the elbow. 4. There is no electrodiagnostic evidence for brachial plexopathy or cervical radiculopathy. CLINICAL COMMENT: Comparison to EMG done by Dr. Madison, 08/30/2024, that reported moderate right median neuropathy across carpal tunnel. Similar findings seen on median nerve today. Similar findings seen on right ulnar nerve, although it was not mentioned on his report. Needle EMG on upper extremity muscles were not performed by Dr. Madison. Today's needle EMG to RUE showed chronic reinnervation changes on right FDI, supportive for findings of ulnar neuropathy. [facility] Medical History Paroxysmal atrial fibrillation Atrial fibrillation Atrial flutter CAD (coronary artery disease) Junctional bradycardia COVID-19 Blindness of left eye History of eye prosthesis Thyroid disease GERD (gastroesophageal reflux disease) Numbness On beta patrick at home On anticoagulant therapy Murmur PVD (peripheral vascular disease) Myocardial infarction Alcohol dependence Post laminectomy syndrome Asthma Renal stones COPD (chronic obstructive pulmonary disease) Anemia Hepatitis C Hyperlipidemia HTN (hypertension) SVT (supraventricular tachycardia) Surgical History S/P TAVR (transcatheter aortic valve replacement) Hx of eye surgery History of esophagogastroduodenoscopy (EGD) H/O colonoscopy S/P lobectomy of lung (~05/2021) Stented coronary artery Hx of thyroidectomy History of back surgery Hx of cardiac cath Family History Father Cancer Mother CVD (cardiovascular disease) Social History (Updated 03/05/25 @ 09:51 by MANDY George) Household Members: None Housing: Apartment Are you a primary outdoor emergency care technician to a significant other at home: No Do you presently have visiting nurse or other home services: No Alcohol intake: current Alcohol intake frequency: former alcohol drinker Alcohol type: hard liquor Patient Tobacco Use Status: Former Tobacco user Tobacco use type: Cigarette Cigarette Packs Per Day: 1 Cigarettes Per Day: 20.0 Years Smoked: 40/ Stopped at age 54 Second Hand Smoke Exposure: No Substance Use Type: Marijuana Advance Directives Date on File: 09/09/23 service: No Current occupational status: retired 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 Normal sensation to all other digits in the right hand today. Normal sensation in the tips of all digits of the left hand today. No thenar or intrinsic wasting. Good APB muscle firing and good finger cross. Vascular: Capillary refill brisk. ROM: Patient can make a fist and extend all their digits. Skin: No lacerations or abrasions noted. General: No ecchymosis. No erythema or evidence of infection. Assessment & Plan Assessment & Plan (1) Right carpal tunnel syndrome: Code(s): G56.01 - Carpal tunnel syndrome, right upper limb Category: Medical Plan 1. Right carpal tunnel syndrome Symptoms constant, daily, worse at night I educated the patient about the condition. I discussed both operative and nonoperative treatment options. The patient would like to proceed with surgery. The risks and benefits of operative treatment were discussed with the patient and the patient wishes to proceed with surgery. These risks include, but are not limited to, risk of damage to blood vessels, nerves, tendons, infection, recurrence, incomplete relief of preoperative symptoms, persistent pain, possible need for further surgery, and the risks associated with regional blocks and/or anesthesia. Plan is to take the patient to the operating room at some point in the next few weeks for the following procedures: 1. Right carpal tunnel release under local anesthesia All of the preoperative paperwork including the consent was discussed today. All of the patient's questions were answered in the clinic today. The patient understands that they will be in contact with our construction scheduler to discuss scheduling their procedure. Patient denies diabetes, asthma, kidney issues, or current smoking. Patient is status post TAVR procedure and is on Eliquis and amiodarone for paroxysmal AFib, does not need hold Eliquis prior to surgery Coding Level of Care Code Est Pt Level 4 (70891) Diagnoses Right carpal tunnel syndrome G56.01
[2025-03-05 09:25] VITALS: BMI 31.6
== END 2025-03-05 11:01 | disposition home or self-care (01) ==
LOC: HO.HOS 09:19
PROVIDERS: PCP Internal Medicine
DX: G56.01 Carpal tunnel syndrome, right upper limb (principal)
CPT/HCPCS: 99214

== ENCOUNTER → 2025-03-05 09:18 | Outpatient (BNVA) | payer MEDICARE, OTHER, SELFPAY | PROVIDERS: PCP Internal Medicine | DX: G56.01 Carpal tunnel syndrome, right upper limb (principal); I48.0 Paroxysmal atrial fibrillation; Z79.01 Long term (current) use of anticoagulants; Z98.890 Other specified postprocedural states | CPT/HCPCS: 99212 ==

== ENCOUNTER 2025-03-06 14:12 | Outpatient (AMB) | payer OTHER, MEDICARE, SELFPAY ==
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
[2025-03-06 14:18] VITALS: BP 162/76; PULSE 84; TEMP 36.6; O2SAT 98; BMI 32.0
--- OUTSIDE RECORDS SUMMARY | 2025-03-06 18:26 | XMS_ITS | Data Portability ---
Author Organization [place] - [facility], Allergy Address [address] [address] Care Team Providers Care Veneer Taping Machine Operator Name Role Phone OLIVIA GAMING Primary [...] as risk of infection of a medical scribe, scar, wound healing. There is an implanted [...] By Organization Details Last Modified Time 11/30/2024 [id number] Contact Naz to schedule drug-induced sleep endoscopy. [...] (PROC ) No observ ation record ed. [facility] [address] [place], [address], 10/10/2024 16:54:59 10/11/19 25 12/20/2023 sleep study , diagn ostic (PROC ) No observ ation record ed. [email or web address] Not Available 09/20 15:50:47 Result Notes None recorded. Problems Name Problem SNOMED Code Status Onset Date Resolution Date Notes Provider Name and Address Organization Details Recorded Time Impacted cerumen 93656503 Active 2014 Impacted cerumen; Note: Date Diagnosed: 05/09/2014 9:29 AM (380.4) Not Available [facility] 4 02:21:57 Sensorine ural hearing loss of bilateral ears 521945333 Active 2014 Sensorineu ral HL, bilateral; Note: Date Diagnosed: 05/09/2014 9:52 AM (389.18) Not Available [facility] 4 02:22:01 Tinnitus 42071682 Active 2014 Tinnitus, unspecifie d; Note: Date Diagnosed: 05/09/2014 9:29 AM (388.30) Not Available [facility] 4 02:21:56 Obstructi ve sleep apnea syndrome 38651579 Active 2024 SIMON FRY MD [address] [place] [address],[place] [address], [place], [phone] , [facility] - [facility] 5 08:29:53 Enlargeme nt of tongue 76577966 Active 2024 MORRIS SIMMS MD [address] [place] [address],[place] [address], [place], [address] , [facility] 5 15:18:42 Problem Notes None recorded. Procedures Surgical History Date Name Laterality Status Provider Name and Address Organization Details Recorded Time 02/06/20 sleep nasendoscopy completed SIMON FRY MD [address] [place] [address], [phone], [facility] 02/05/2025 10:45:12 10/11/19 FFL_RE completed MORRIS SIMMS MD [address], [address], [facility] 10/10/2024 15:11:24 Imaging Results None recorded. Procedure Notes None recorded. Medical Equipment None Reported. Allergies Allergen ID Allergen Name Allergen Category Reaction Reaction Severity Criticality Documentation Date Start Date Code Code System Note Provider Name and Address Organization Details Recorded Time 115473 Brilinta medicatio n rash Not available Not available 02/05/2025 47926 36 RxNorm Not Available mook - External [...] 40 mg tablet active Medicati on ID: 33763 Du ration Value: 30 Brand Name: lovastat [...] mg tablet 11/30 completed Medicati on ID: 27595 Du ration Value: 30 Brand Name: metoprol ol tartrate Send Method: E-Prescr ibed Sub s Allowed: subs OK Medic ationGen ericName : metoprol ol tartrate Not Available Not Available Not Available gabapenti n 300 mg capsule 11/30 completed Medicati on ID: 10822 Du ration Value: 30 Brand Name: gabapent [...] mg tablet 11/30 completed Medicati on ID: 18292 Du ration Value: 30 Brand Name: lisinopr [...] Updated DateTime 10/10/2024 182.88 cm 31.9 kg/m2 389835.21 g Cristobal Morales [place] [facility] 10/10/2024 15:02:59 Date Recorded Body height Body mass index (BMI) Body weight Provider Name and Address Organization Details Last Updated DateTime 11/30/2024 182.88 cm 31.9 kg/m2 893750.21 g TIFFANIE ARMENDARZI [place] - [facility] 11/30/2024 11:28:59 Date Recorded Body height Provider Name an d Address Organization Details Last Updated DateTime 02/12/2025 182.88 cm [facility] [place] [facility] 02/12/2025 11:46:34 Social History None recorded. Functional Status None recorded. Mental Status None recorded. Family History Nothing Reported. Medical History No medical history recorded. Past Encounters Encounter ID Performer Location Encounter Start Date Encounter Closed Date Diagnosis/Indication Diagnosis SNOMED-CT Code Diagnosis ICD10 Code Diagnosis IMO Codes Diagnosis Note [id number] MORRIS SIMMS MD [facility] [address] [address] 10/10/2024 14:42:53 10/10/2024 15:44:39 Obstructive sleep apnea syndrome 07655046 G47.33 [id number] He has macrogloss ia contributi ng. I reviewed his PSG which showed an AHI of 30.5 and an O2 cal of 78%. See below. He is interested in a consultati on for an inspire implant. Enlargement of tongue 25 877781 Q38.2 4438 I discussed options besides CPAP including a dental appliance and inspire implant. He is interested in an inspire implant and based on his numbers he seems to meet criteria. I will refer him to Dr. Fry for evaluation . [id number] SIMON FRY MD [facility] [address] [address] 11/30/2024 11:13:08 11/30/2024 11:54:33 Obstructive sleep apnea syndrome 11178248 G47.33 37029 AHI 30, SMS Review of sleep study [...] results with a telehealth call [facility] week after the procedure. [id number] SIMON FRY MD [facility] [address] [address] 02/12/2025 11:38:10 02/12/2025 11:59:17 Obstructive sleep apnea syndrome 70455426 G47.33 60032 AHI 30, SMS Health Concerns Section Related Observation LastModified by Organization Detai ls LastModified Time None Recorded Concern Status LastModified by Organization Details LastModified Time None Recorded Advance Directives Directive None Recorded Payers Insurance Date Sequence Insurance Name Policy Number Policy Bryant Covered Member ID Bryant Member ID Guarantor Name 10/10/2024 1 [place] B[place] [employer] Shane Nichole [id number] Shane Nichole 01/30/2025 2 [place] [facility] Shane Nichole [id number] Shane Nichole 02/12/2025 1 [facility] BLUE (MEDICARE REPLACEMENT PPO) [id number] Shane Nichole [id number] Shane Nichole Notes Date Note Type Note [...] replacement is pending. MORRIS SIMMS MD 100 [facility],[address], [address], [place] - 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 SIMON FRY MD 100 [facility],[place] [address], [place], [address], [place] - [facility] 11/30/2024 11:55:35 02/12/2025 text/html OSAPV 10/10/24 Miryam, XAVIER, refer for INSPIRE consult, FOL normal 12/20/23 Home PSG SMSBMI 31AHI 30central and mixed events <25%CPAP trial - intolerant from excessive movement and claustrophobia from choking on mask. 02/05/25 Lisandra MARKHAM, MARRY - good anatomical candidate for INSPIRE retired trenton FRY MD [address] [place] [address], [place], [address], [place] - [facility] 02/12/2025 11:59:45
--- OUTSIDE RECORDS SUMMARY | 2025-03-06 18:26 | XMS_ITS | Continuity of Care Document ---
Author Organization [place] - [facility], [facility] Address [address] [place] [address] Care Team Providers Care Guidance Services Coordinator Name Role Phone OLIVIA GAMING Primary Care [...] well as risk of infection of a district medical examiner, scar, wound healing. There is an implanted [...] Address Organization Details Recorded Time Impacted cerumen 73902043 Active 2014 Impacted cerumen; Note: Date Diagnosed: 05/09/2014 9:29 AM (380.4) Not Available [facility] 4 02:21:57 Sensorine ural hearing loss of bilateral ears 882656195 Active 2014 Sensorineu ral HL, bilateral; Note: Date Diagnosed: 05/09/2014 9:52 AM (389.18) Not Available [facility] 4 02:22:01 Tinnitus 63972099 Active 2014 Tinnitus, unspecifie d; Note: Date Diagnosed: 05/09/2014 9:29 AM (388.30) Not Available [facility] 4 02:21:56 Obstructi ve sleep apnea syndrome 92620858 Active 2024 SIMON LEA MD 100 [facility],[place] [address], [place], [address] , [facility] 5 08:29:53 Enlargeme nt of tongue 27113843 Active 2024 MORRIS SIMMS MD [address] [place] [address],[place] [address], [place], [address] , [facility] - [facility] 15:18:42 Problem Notes None recorded. Procedures Surgical History Date Name Laterality Status Provider Name and Address Organization Details Recorded Time 02/06/20 sleep nasendoscopy completed SIMON LEA MD [address], [address], [facility] 02/05/2025 10:45:12 10/11/19 FFL_RE completed MORRIS SIMMS MD [address] [place] [address],[address], [address], [facility] 10/10/2024 15:11:24 Imaging Results None recorded. Procedure Notes None recorded. Medical Equipment None Reported. Allergies Allergen ID Allergen Name Allergen Category Reaction Reaction Severity Criticality Documentation Date Start Date Code Code System Note Provider Name and Address Organization Details Recorded Time 770139 Brilinta medicatio n rash Not available Not available 02/05/2025 52607 36 RxNorm Not Available mook - External [...] 40 mg tablet active Medicati on ID: 85594 Du ration Value: 30 Brand Name: lovastat [...] mg tablet 11/30 completed Medicati on ID: 98543 Du ration Value: 30 Brand Name: metoprol ol tartrate Send Method: E-Prescr ibed Sub s Allowed: subs OK Medic ationGen ericName : metoprol ol tartrate Not Available Not Available Not Available gabapenti n 300 mg capsule 11/30 completed Medicati on ID: 83601 Du ration Value: 30 Brand Name: gabapent [...] mg tablet 11/30 completed Medicati on ID: 22386 Du ration Value: 30 Brand Name: lisinopr [...] [place] [facility] 02/12/2025 11:46:34 Social History None recorded. Functional Status None recorded. Mental Status None recorded. Family History Nothing Reported. Medical History No medical history recorded. Past Encounters Encounter ID Performer Location Encounter Start Date Encounter Closed Date Diagnosis/Indication Diagnosis SNOMED-CT Code Diagnosis ICD10 Code Diagnosis IMO Codes Diagnosis Note [id number] SIMON LEA MD [facility] [address] [address] 02/12/2025 11:38:10 02/12/2025 11:59:17 Obstructive sleep apnea syndrome 49953578 G47.33 40047 AHI 30, SMS Health Concerns Section Related Observation LastModified by Organization Detai ls LastModified Time None Recorded Concern Status LastModified by Organization Details LastModified Time None Recorded Payers Encounter Date Sequence Insurance Name Policy Number Policy Bryant Covered Member ID Bryant Member ID Guarantor Name 02/12/2025 2 [place] Shane Nichole [id number] Shane Nichole 02/12/2025 1 [place] (MEDICARE [place]PLACEMENT PPO) [id number] Shane Nichole [id number] Shane Nichole Notes Date Note Type Note Provider Name and Address Organization Details Recorded Time 02/12/2025 text/html OSAPV 10/10/24 XAVIER Simms, refer for INSPIRE consult, FOL normal 12/20/23 Home PSG SMSBMI 31AHI 30central and mixed events <25%CPAP trial - intolerant from excessive movement and claustrophobia from choking on mask. 02/05/25 Lisandra MARKHAM, DISE - good anatomical candidate for INSPIRE retirelupillo LEA MD [address] [place] [address], [phone], [place] - [facility] 02/12/2025 11:59:45
--- OUTSIDE RECORDS SUMMARY | 2025-03-06 18:26 | XMS_ITS | Clinical Summary ---
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 Patient is a former smoker with a 86-cbnx-uglu history. He states during ambulation he has [...] COMMENT: Benign thyroid nodule COLONOSCOPY 06/05/08 PROCEDURE: [place] COLONOSCOPY STOMA DX INCLUDING COLLJ SPEC SPX; COMMENT: Up to cecum, ascending polyp removed:Adenomatous, Hepatic flexure polyp removed:TA, Sigmoid polyp removed:Hyperplastic. NOT removed 1 polyp at asceding and 2 polyps at transverse OTHER SURGICAL HISTORY PROCEDURE: [place] RADIAL KERATOTOMY; COMMENT: left eye Medical History [...] [facility] Annual [facility] Blood Test abstracted [facility] Provider HEALTH MAINTENANCE Final Result * Lipid panel (01/14/2023) [facility] LDL/HDL Ratio 0 0 - 0 Triglycerides 0 0 - 0 mg/dL Cholesterol 0 0 - 0 mg/dL HDL 0 0 - 0 mg/dL LDL Cholesterol 0 0 - 0 mg/dL Blood Venous blood specimen / Unknown [facility] Provider LAB BLOOD ORDERABLES Terese l Result * Abdominal Aortic Aneurysm Screen (08/02/2008) Pathologist [facility] Abdominal Aortic Aneurysm (AAA) Screening abstracted Anatomical Region Laterality Modality Other [facility] Provider HEALTH MAINTENANCE Final Result from Last 3 Months or Most Recently Relevant to Health Maintenance Insurance [place] Advance Directives Documents on File Type Date Recorded Patient Diagnostic Technician Expl anation Health Care Decision (hx) [...] (hx) 06/18/2021 AD HURTADO DIRECTIVE Care Teams Circulation Tender Relationship Specialty Start Date End Date Kojo Fermin MD [address] [place] [address] PCP - General Internal Medicine 03/27/21
== END 2025-03-06 15:24 | disposition home or self-care (01) ==
PROVIDERS: PCP Internal Medicine; Visit Provider Physician Assistant Medical
DX: M54.9 Dorsalgia, unspecified (principal); V89.2XXA Person injured in unspecified motor-vehicle accident, traffic, initial encounter; M54.2 Cervicalgia

== ENCOUNTER 2025-03-06 14:12 | Outpatient (REF) | payer OTHER, MEDICARE, SELFPAY ==
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
== END 2025-03-06 14:13 | disposition home or self-care (01) ==
LOC: HO.HMGCX 14:12
PROVIDERS: PCP Internal Medicine; Visit Provider Physician Assistant Medical
DX: M54.2 Cervicalgia (principal); M54.50 Low back pain, unspecified
CPT/HCPCS: 72040; 72072; 72100

== ENCOUNTER → 2025-03-06 14:58 | Outpatient (BNV) | payer OTHER, MEDICARE, SELFPAY | PROVIDERS: PCP Internal Medicine; Visit Provider Radiology Diagnostic Radiology | DX: M47.812 Spondylosis without myelopathy or radiculopathy, cervical region (principal); M47.814 Spondylosis without myelopathy or radiculopathy, thoracic region; M47.816 Spondylosis without myelopathy or radiculopathy, lumbar region; M41.86 Other forms of scoliosis, lumbar region; V89.2XXA Person injured in unspecified motor-vehicle accident, traffic, initial encounter | CPT/HCPCS: 72040; 72072; 72100 ==

== ENCOUNTER 2025-03-12 12:27 | Outpatient (AMB) | payer MEDICARE, MEDICAID, SELFPAY ==
[2025-03-12 12:39] VITALS: BP 134/76; PULSE 69; BMI 32.3
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
--- OUTSIDE RECORDS SUMMARY | 2025-03-12 15:38 | XMS_ITS | Data Portability ---
Author Organization [place] - [facility], Allergy Address [address] [address] Care Team Providers Care Inspector Weights And Measures Name Role Phone OLIVIA GAMING Primary Care Provider [phone] Assessment Encounter Date Assessment Date Assessment LastModified [...] well as risk of infection of a manager medical affairs, scar, wound healing. There is an implanted [...] By Organization Details Last Modified Time 11/30/2024 [id number] Contact Nza to schedule drug-induced sleep endoscopy. Follow up [...] (PROC ) No observ ation record ed. [facility] [address] [place], [address], 10/10/2024 16:54:59 10/11/19 25 12/20/2023 sleep study , diagn ostic (PROC ) No observ ation record ed. [email or web address] Not Available 09/20 15:50:47 Result Notes None recorded. Problems Name Problem SNOMED Code Status Onset Date Resolution Date Notes Provider Name and Address Organization Details Recorded Time Impacted cerumen 14434877 Active 2014 Impacted cerumen; Note: Date Diagnosed: 05/09/2014 9:29 AM (380.4) Not Available [facility] 4 02:21:57 Sensorine ural hearing loss of bilateral ears 946120997 Active 2014 Sensorineu ral HL, bilateral; Note: Date Diagnosed: 05/09/2014 9:52 AM (389.18) Not Available [facility] 4 02:22:01 Tinnitus 88445284 Active 2014 Tinnitus, unspecifie d; Note: Date Diagnosed: 05/09/2014 9:29 AM (388.30) Not Available [facility] 4 02:21:56 Obstructi ve sleep apnea syndrome 15745464 Active 2024 SIMON FRY MD [address] [place] [address],[place] [address], [place], [address] , [facility] - [facility] 5 08:29:53 Enlargeme nt of tongue 46882433 Active 2024 MORRIS SIMMS MD [address] [place] [address],[place] [address], [place], [address] , [facility] 5 15:18:42 Problem Notes None recorded. Procedures Surgical History Date Name Laterality Status Provider Name and Address Organization Details Recorded Time 02/06/20 sleep nasendoscopy completed SIMON FRY MD [address] [place] [address], [address], [facility] 02/05/2025 10:45:12 10/11/19 FFL_RE completed MORRIS SIMMS MD [address], [address], [facility] 10/10/2024 15:11:24 Imaging Results None recorded. Procedure Notes None recorded. Medical Equipment None Reported. Allergies Allergen ID Allergen Name Allergen Category Reaction Reaction Severity Criticality Documentation Date Start Date Code Code System Note Provider Name and Address Organization Details Recorded Time 719689 Brilinta medicatio n rash Not available Not available 02/05/2025 75525 36 RxNorm Not Available mook - External [...] 40 mg tablet active Medicati on ID: 59398 Du ration Value: 30 Brand Name: lovastat [...] mg tablet 11/30 completed Medicati on ID: 41328 Du ration Value: 30 Brand Name: metoprol ol tartrate Send Method: E-Prescr ibed Sub s Allowed: subs OK Medic ationGen ericName : metoprol ol tartrate Not Available Not Available Not Available gabapenti n 300 mg capsule 11/30 completed Medicati on ID: 35748 Du ration Value: 30 Brand Name: gabapent [...] mg tablet 11/30 completed Medicati on ID: 21664 Du ration Value: 30 Brand Name: lisinopr [...] Updated DateTime 10/10/2024 182.88 cm 31.9 kg/m2 295459.21 g Cristobal Morales [place] - [facility] [place] 10/10/2024 15:02:59 Date Recorded Body height Body mass index (BMI) Body weight Provider Name and Address Organization Details Last Updated DateTime 11/30/2024 182.88 cm 31.9 kg/m2 752311.21 g TIFFANIE ARMENDARIZ [place] - [facility] [place] 11/30/2024 11:28:59 Date Recorded Body height Provider Name an d Address Organization Details Last Updated DateTime 02/12/2025 182.88 cm [facility] [place] [facility] [place] 02/12/2025 11:46:34 Social History None recorded. Functional Status None recorded. Mental Status None recorded. Family History Nothing Reported. Medical History No medical history recorded. Past Encounters Encounter ID Performer Location Encounter Start Date Encounter Closed Date Diagnosis/Indication Diagnosis SNOMED-CT Code Diagnosis ICD10 Code Diagnosis IMO Codes Diagnosis Note [id number] MORRIS SIMMS MD [facility] [address] [address] 10/10/2024 14:42:53 10/10/2024 15:44:39 Obstructive sleep apnea syndrome 75130148 G47.33 [id number] He has macrogloss ia contributi ng. I reviewed his PSG which showed an AHI of 30.5 and an O2 cal of 78%. See below. He is interested in a consultati on for an inspire implant. Enlargement of tongue 25 200795 Q38.2 9049 I discussed options besides CPAP including a dental appliance and inspire implant. He is interested in an inspire implant and based on his numbers he seems to meet criteria. I will refer him to Dr. Fry for evaluation . [id number] SIMON FRY MD [facility] [address] [address] 11/30/2024 11:13:08 11/30/2024 11:54:33 Obstructive sleep apnea syndrome 80234083 G47.33 [id number] AHI 30, SMS Review of sleep study [...] will review results with a telehealth call [facility] week after the procedure. [id number] SIMON FRY MD [facility] [address] [address] 02/12/2025 11:38:10 02/12/2025 11:59:17 Obstructive sleep apnea syndrome 00536786 G47.33 75269 AHI 30, SMS Health Concerns Section Related Observation LastModified by Organization Detai ls LastModified Time None Recorded Concern Status LastModified by Organization Details LastModified Time None Recorded Advance Directives Directive None Recorded Payers Insurance Date Sequence Insurance Name Policy Number Policy Bryant Covered Member ID Bryant Member ID Guarantor Name 10/10/2024 1 [place]: [employer] Shane Nichole [id number] Shane Nichole 01/30/2025 2 [place] [facility] Shane Nichole [id number] Shane Nichole 02/12/2025 1 [facility]: [place] BLUE (MEDICARE REPLACEMENT PPO) [id number] Shane Nichole [id number] Shane Nichole Notes Date Note Type Note [...] replacement is pending. 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 SIMON FRY MD 100 [facility],[place] [address], [place], [address], [place] - [facility] 11/30/2024 11:55:35 02/12/2025 text/html OSAPV 10/10/24 Miryam, XAVIER, refer for INSPIRE consult, FOL normal 12/20/23 Home PSG SMSBMI 31AHI 30central and mixed events <25%CPAP trial - intolerant from excessive movement and claustrophobia from choking on mask. 02/05/25 Lisandra MARKHAM, MARRY - good anatomical candidate for INSPIRE retired trenton FRY MD [address] [place] [address], [place], [address], [place] - [facility] 02/12/2025 11:59:45
--- OUTSIDE RECORDS SUMMARY | 2025-03-12 15:39 | XMS_ITS | Continuity of Care Document ---
Author Organization [place] - [facility], [facility] Address [address] [place] [address] Care Team Providers Care Patient Admitting Clerk Name Role Phone OLIVIA GAMING Primary Care [...] well as risk of infection of a director of medical services, scar, wound healing. There is an implanted [...] Address Organization Details Recorded Time Impacted cerumen 93484927 Active 2014 Impacted cerumen; Note: Date Diagnosed: 05/09/2014 9:29 AM (380.4) Not Available [facility] 4 02:21:57 Sensorine ural hearing loss of bilateral ears 725629917 Active 2014 Sensorineu ral HL, bilateral; Note: Date Diagnosed: 05/09/2014 9:52 AM (389.18) Not Available [facility] 4 02:22:01 Tinnitus 20081257 Active 2014 Tinnitus, unspecifie d; Note: Date Diagnosed: 05/09/2014 9:29 AM (388.30) Not Available [facility] 4 02:21:56 Obstructi ve sleep apnea syndrome 69932514 Active 2024 SIMON LEA MD 100 [facility],[place] [address], [place], [address] , [facility] 5 08:29:53 Enlargeme nt of tongue 40955120 Active 2024 MORRIS SIMMS MD [address] [place] [address],[place] [address], [place], [address] , [facility] - [facility] 15:18:42 Problem Notes None recorded. Procedures Surgical History Date Name Laterality Status Provider Name and Address Organization Details Recorded Time 02/06/20 sleep nasendoscopy completed SIMON LEA MD [address], [address], [facility] 02/05/2025 10:45:12 10/11/19 FFL_RE completed MORRIS SIMMS MD [address] [place] [address],[address], [address], [facility] 10/10/2024 15:11:24 Imaging Results None recorded. Procedure Notes None recorded. Medical Equipment None Reported. Allergies Allergen ID Allergen Name Allergen Category Reaction Reaction Severity Criticality Documentation Date Start Date Code Code System Note Provider Name and Address Organization Details Recorded Time 546116 Brilinta medicatio n rash Not available Not available 02/05/2025 72296 36 RxNorm Not Available mook - External [...] 40 mg tablet active Medicati on ID: 18670 Du ration Value: 30 Brand Name: lovastat [...] mg tablet 11/30 [place]ati [place] ID: 75205 Du ration Value: 30 Brand Name: metoprol ol tartrate Send Method: E-Prescr ibed Sub s Allowed: subs OK Medic ationGen ericName : metoprol ol tartrate Not Available Not Available Not Available gabapenti n 300 mg capsule 11/30 completed Medicati on ID: 67317 Du ration Value: 30 Brand Name: gabapent [...] mg tablet 11/30 [place] Medicati on ID: 85012 Du ration Value: 30 Brand Name: lisinopr [...] [facility] 02/12/2025 11:46:34 Social History None recorded. Functional Status None recorded. Mental Status None recorded. Family History Nothing Reported. Medical History No medical history recorded. Past Encounters Encounter ID Performer Location Encounter Start Date Encounter Closed Date Diagnosis/Indication Diagnosis SNOMED-CT Code Diagnosis ICD10 Code Diagnosis IMO Codes Diagnosis Note [id number] SIMON LEA MD [facility] [address] [address] 02/12/2025 11:38:10 02/12/2025 11:59:17 Obstructive sleep apnea syndrome 94250609 G47.33 92117 AHI 30, SMS Health Concerns Section Related Observation LastModified by Organization Detai ls LastModified Time None Recorded Concern Status LastModified by Organization Details LastModified Time None Recorded Payers Encounter Date Sequence Insurance Name Policy Number Policy Bryant Covered Member ID Bryant Member ID Guarantor Name 02/12/2025 2 [place] Shane Nichole [id number] Shane Nichole 02/12/2025 1 [place] (MEDICARE [place]AC[place] PPO) [id number] Shane Nichole [id number] Shane Nichole Notes Date Note Type Note Provider Name and Address Organization Details Recorded Time 02/12/2025 text/html OSAP[facility] 10/10/24 XAVIER Simms, refer for INSPIRE consult, FOL normal 12/20/23 Home PSG SMSBMI 31AHI 30central and mixed events <25%CPAP trial - intolerant from excessive movement and claustrophobia from choking on mask. 02/05/25 Lisandra MARKHAM, DISE - good anatomical candidate for INSPIRE retirelupillo LEA MD [address] [place] [address], [address], [place] - [facility] 02/12/2025 11:59:45
--- OUTSIDE RECORDS SUMMARY | 2025-03-12 15:39 | XMS_ITS | Clinical Summary ---
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 Patient is a former smoker with a 60-bdsv-wghx history. He states during ambulation he has to take very frequent breaks due to feeling winded . He continues to have some discomfort along his surgical incisional sites however he states that it is manageable. While patient was in office reviewed his most recent chest CT scan which was performed at [facility] on July 31, 2021 and shows [...] COMMENT: Benign thyroid nodule COLONOSCOPY 06/05/08 PROCEDURE: NE COLONOSCOPY STOMA DX INCLUDING COLLJ SPEC SPX; COMMENT: Up to cecum, ascending polyp removed:Adenomatous, Hepatic flexure polyp removed:TA, Sigmoid polyp removed:Hyperplastic. NOT removed 1 polyp at asceding and 2 polyps at transverse OTHER SURGICAL HISTORY PROCEDURE: NE RADIAL KERATOTOMY; COMMENT: left eye Medical History [...] BMP Blood Test (05/07/2023) Pathologist [facility] Annual BMP Blood Test abstracted [facility] Provider HEALTH MAINTENANCE Final Result * Lipid panel (01/14/2023) [facility] LDL/HDL Ratio 0 0 - 0 Triglycerides 0 0 - 0 mg/dL Cholesterol 0 0 - 0 mg/dL HDL 0 0 - 0 mg/dL LDL Cholesterol 0 0 - 0 mg/dL Blood Venous blood specimen / Unknown [facility] Provider LAB BLOOD ORDERABLES Terese l Result * Abdominal Aortic Aneurysm Screen (08/02/2008) Pathologist [facility] Abdominal Aortic Aneurysm (AAA) Screening abstracted Anatomical Region Laterality Modality Other [facility] Provider HEALTH MAINTENANCE Final Result from Last 3 Months or Most Recently Relevant to Health Maintenance Insurance [place] Advance Directives Documents on File Type Date Recorded 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
== END 2025-03-12 13:01 | disposition home or self-care (01) ==
LOC: HO.HCS 12:28
PROVIDERS: PCP Internal Medicine; Visit Provider Internal Medicine Cardiovascular Disease
DX: Z95.3 Presence of xenogenic heart valve (principal); I25.10 Atherosclerotic heart disease of native coronary artery without angina pectoris; I48.0 Paroxysmal atrial fibrillation; Z95.0 Presence of cardiac pacemaker; I10 Essential (primary) hypertension
CPT/HCPCS: 93010; 93280; 99215

== ENCOUNTER → 2025-03-12 12:27 | Outpatient (BNVA) | payer MEDICARE, MEDICAID, SELFPAY | PROVIDERS: PCP Internal Medicine; Visit Provider Internal Medicine Cardiovascular Disease | DX: I25.10 Atherosclerotic heart disease of native coronary artery without angina pectoris (principal); I10 Essential (primary) hypertension; I48.0 Paroxysmal atrial fibrillation; Z95.0 Presence of cardiac pacemaker; Z79.01 Long term (current) use of anticoagulants; Z79.899 Other long term (current) drug therapy; Z95.3 Presence of xenogenic heart valve; Z87.891 Personal history of nicotine dependence | CPT/HCPCS: 93005; 93280; 99212 ==